=== PATIENT | male | born 1950 | race Caucasian/White ===

== ENCOUNTER 2018-02-18 09:57 | Emergency (ER) | payer MEDICARE, OTHER ==
[~2018-02-18] VITALS: Ht 182.9 cm; Wt 88.9 kg
[~2018-02-18 09:57] MED LIST: ASPI-266 PO; CLN.1TRX PO; CLON0.1T14 PO; FINA1TAB10 PO; FINA5TAB6 PO; HYDR-3714 PO; HYDR-757 PO; LISI1TAB10 PO; LORA10TA76 PO; MELA1TAB27 PO; MULT-517 PO; POLY B OU; SIMV40TA4 PO; TRIMETHOPRIM OU
--- OUTSIDE RECORDS SUMMARY | 2018-02-18 10:05 | XMS REPORT ---
Author Author LORA JUSTIN Organization [employer] Address Unknown Phone Unavailable Care Team Providers Care Medicine Assistant Name Role Phone LORA JUSTIN CP Unavailable Allergies No Known Allergies Problems Problem Type Condition Code Onset Dates Condition Status Assessment Arthritis M19.90 Active Medications Medication Code System Code Instructions Start Date End Date Status Dosage Tramadol HCl [facility] [address]-45 50 MG Orally every 6 hrs. MUST LAST 30 DAYS 1 tablet as needed Results No Known Results Summary Purpose [employer]ClinicalWorks Submission
--- OUTSIDE RECORDS SUMMARY | 2018-02-18 10:05 | XMS REPORT ---
Author Author LORA JUSTIN Organization [facility] Address [address] [place] [address] Care Team Providers Care Sustainability Analyst Name Role Phone LORA JUSTIN Unavailable PROBLEMS Type Condition ICD9-CM Code [id number] Code Onset Dates Condition Status SNOMED Code Problem Other chronic pain G89.29 Active 34102351 ALLERGIES No Known Allergies SOCIAL HISTORY No smoking Hx information available PLAN OF CARE VITAL SIGNS MEDICATIONS Medication Instructions Dosage Frequency Start Date End Date Duration Status Tramadol HCl 50 mg Orally every 4 hrs 1 tablet as needed 4h Active RESULTS No Results PROCEDURES No Known procedures IMMUNIZATIONS No Known Immunizations
--- OUTSIDE RECORDS SUMMARY | 2018-02-18 10:05 | XMS REPORT ---
Author Author LORA JUSTIN Organization [employer] Address Unknown Phone Unavailable Care Team Providers Care Life Insurance Agent Name Role Phone LORA JUSTIN CP Unavailable Allergies No Known Allergies Problems No Known Problems Medications Medication Code System Code Instructions Start Date End Date Status Dosage Tramadol HCl [facility] [address]-60 50 mg Orally every 4 hrs 1 tablet as needed Results No Known Results Summary Purpose [employer]ClinicalWorks Submission
--- OUTSIDE RECORDS SUMMARY | 2018-02-18 10:05 | XMS REPORT ---
Author Author LORA JUSTIN Organization [facility] Address [address] [place] [address] Care Team Providers Care Chain Carrier Name Role Phone LORA JUSTIN Unavailable PROBLEMS Type Condition ICD9-CM Code [id number] Code Onset Dates Condition Status SNOMED Code Problem Other chronic pain G89.29 Active 41193960 ALLERGIES No Known Allergies SOCIAL HISTORY No smoking Hx information available PLAN OF CARE VITAL SIGNS MEDICATIONS Medication Instructions Dosage Frequency Start Date End Date Duration Status Tramadol HCl 50 mg Orally every 4 hrs 1 tablet as needed 4h 28 days Active RESULTS No Results PROCEDURES No Known procedures IMMUNIZATIONS No Known Immunizations
--- OUTSIDE RECORDS SUMMARY | 2018-02-18 10:06 | XMS REPORT ---
Author Author LORA JUSTIN Organization [facility] Address [address] [place] [address] Care Team Providers Care Folding Machine Feeder Name Role Phone LORA JUSTIN Unavailable PROBLEMS Type Condition ICD9-CM Code [id number] Code Onset Dates Condition Status SNOMED Code Problem Other chronic pain G89.29 Active 90273272 ALLERGIES No Information SOCIAL HISTORY Never Assessed PLAN OF CARE VITAL SIGNS MEDICATIONS Medication Instructions Dosage Frequency Start Date End Date Duration Status Tramadol HCl 50 mg Orally every 4 hrs 1 tablet as needed 4h 28 days Active RESULTS No Results PROCEDURES No Known procedures IMMUNIZATIONS No Known Immunizations MEDICAL (GENERAL) HISTORY Type Description Date Medical History hypertension Medical History mild stroke Medical History hyperlipidemia Medical History prostate cancer Surgical History wrist surgery Surgical History hernia repair Hospitalization History surgeries only Hospitalization History headache 11/2014
--- OUTSIDE RECORDS SUMMARY | 2018-02-18 10:06 | XMS REPORT ---
Author Author LORA JUSTIN Organization [facility] Address [address] [place] [address] Care Team Providers Care Precast Molder Name Role Phone LORA JUSTIN Unavailable PROBLEMS Type Condition ICD9-CM Code [id number]-MK Code Onset Dates Condition Status SNOMED Code Problem Other chronic pain G89.29 Active 84048023 ALLERGIES No Information SOCIAL HISTORY Never Assessed [...]
--- OUTSIDE RECORDS SUMMARY | 2018-02-18 10:06 | XMS REPORT ---
Author Author LORA JUSTIN [facility] Address [address] [place] [address] Care Team Providers Care Sticker Operator Name Role Phone LORA JUSTIN Unavailable PROBLEMS Unknown Problems ALLERGIES Unknown Allergies SOCIAL HISTORY No smoking Hx information available PLAN OF CARE VITAL SIGNS MEDICATIONS Medication Instructions Dosage Frequency Start Date End Date Duration Status Tramadol HCl 50 mg Orally every 4 hrs 1 tablet as needed 4h Active RESULTS No Results PROCEDURES No Known procedures IMMUNIZATIONS No Known Immunizations
--- OUTSIDE RECORDS SUMMARY | 2018-02-18 10:06 | XMS REPORT ---
Author LORA Hernandez Organization [employer] Address Unknown Phone Unavailable Care Team Providers Care Japanese Professor Name Role Phone LORA JUSTIN CP Unavailable Allergies, Adverse Reactions, Alerts Substance Reaction Event Type N.K.D.A. Info Not Available Non Drug Allergy Problems Problem Type Condition ICD-9 Code Onset Dates Condition Status Assessment Arthritis 716.90 Active Medications Medication Code System Code Instructions Start Date End Date Status Dosage Proscar [facility] [address]-44 not defined Tramadol HCl [facility] [address]-23 50 MG Orally every 6 hrs 1 tablet as needed Simvastatin [facility] [address]-77 40 mg Once a day 1 tablet in the evening Plavix [facility] [address]-60 75 MG Orally Once a day not defined Procedures Procedure Coding System Code Date Office Visit, Est Pt., Level 3 CPT-4 68330 Jun 28, 2015 Vital Signs Date/Time: Jun 28, 2015 Temperature 96.7 F Weight 199.3 lbs Height 70 in BMI 28.59 Index Blood Pressure Diastolic 80 mmHg Blood Pressure Systolic 130 mmHg Cardiac Monitoring Heart Rate 60 bpm Results No Known Results Summary Purpose eClinicalWorks Submission
--- OUTSIDE RECORDS SUMMARY | 2018-02-18 10:06 | XMS REPORT ---
Author Author LORA JUSTIN Organization [employer] Address Unknown Phone Unavailable Care Team Providers Care Tableman Name Role Phone LORA JUSTIN CP Unavailable Allergies No Known Allergies Problems No Known Problems Medications Medication Code System Code Instructions Start Date End Date Status Dosage Tramadol HCl [facility] [address]-34 50 mg Orally every 4 hrs 1 tablet as needed Results No Known Results Summary Purpose eClinicalWorks Submission
--- OUTSIDE RECORDS SUMMARY | 2018-02-18 10:06 | XMS REPORT ---
Author LORA Hernandez Organization [employer] Address Unknown Phone Unavailable Care Team Providers Care Digital Media Designer Name Role Phone LORA JUSTIN CP Unavailable Allergies No Known Allergies Problems Problem Type Condition Code Onset Dates Condition Status Assessment Arthritis 716.90 Active Medications Medication Code System Code Instructions Start Date End Date Status Dosage Tramadol HCl [facility] [address]-04 50 MG Orally every 6 hrs. MUST LAST 30 DAYS 1 tablet as needed Results No Known Results Summary Purpose eClinicalWorks Submission
--- OUTSIDE RECORDS SUMMARY | 2018-02-18 10:06 | XMS REPORT ---
Author Author LORA JUSTIN Organization [facility] Address [address] [place] [address] Care Team Providers Care Career Discovery Teacher Name Role Phone LORA JUSTIN Unavailable PROBLEMS Type Condition ICD9-CM Code NSH53-ZR Code Onset Dates Condition Status SNOMED Code Problem Other chronic pain G89.29 Active 91495320 ALLERGIES Substance Reaction Event Type Date Status N.K.D.A. Unknown Non Drug Allergy Nov, Unknown SOCIAL HISTORY No smoking Hx information available PLAN OF CARE VITAL SIGNS Height 70 in 2016-11-02 Weight 200.1 lbs 2016-11-02 Temperature 98.2 degrees Fahrenheit 2016-11-02 Heart Rate 70 bpm 2016-11-02 Respiratory Rate 18 2016-11-02 BMI 28.71 kg/m2 2016-11-02 Blood pressure systolic 132 mmHg 2016-11-02 Blood pressure diastolic 42 mmHg 2016-11-02 MEDICATIONS Medication Instructions Dosage Frequency Start Date End Date Duration Status Tramadol HCl 50 mg Orally every 4 hrs 1 tablet as needed 4h Active Plavix 75 MG Orally Once a day 24h Active Simvastatin 40 mg 1 tablet in the evening 24h Active Proscar Active RESULTS No Results PROCEDURES Procedure Date Ordered Related Diagnosis Body Site [facility] VISIT ESTABLISHED PATIENT Nov 02, 2016 Office Visit, Est Pt., Level 3 Nov 02, 2016 IMMUNIZATIONS No Known Immunizations
--- OUTSIDE RECORDS SUMMARY | 2018-02-18 10:06 | XMS REPORT ---
Author LORA Hernandez Organization [employer] Address Unknown Phone Unavailable Care Team Providers Care Senior Software Developer Name Role Phone LORA JUSTIN CP Unavailable Allergies, Adverse Reactions, Alerts Substance Reaction Event Type N.K.D.A. Info Not Available Non Drug Allergy Problems Problem Type Condition Code Onset Dates Condition Status Assessment Arthritis M19.90 Active Medications Medication Code System Code Instructions Start Date End Date Status Dosage Simvastatin [facility] [address]-98 40 mg Once a day 1 tablet in the evening Plavix [facility] [address]-19 75 MG Orally Once a day not defined Proscar [facility] [address]-17 not defined Tramadol HCl [facility] [address]-44 50 MG Orally every 6 hrs. MUST LAST 30 DAYS 1 tablet as needed Procedures Procedure Coding System Code Date Office Visit, Est Pt., Level 3 CPT-4 75518 Oct 02, 2015 Vital Signs Date/Time: Oct 02, 2015 Temperature 98.1 F Weight 206.0 lbs Height 70 in BMI 29.55 Index Blood Pressure Diastolic 60 mmHg Blood Pressure Systolic 120 mmHg Cardiac Monitoring Heart Rate 64 bpm Results No Known Results Summary Purpose eClinicalWorks Submission
--- OUTSIDE RECORDS SUMMARY | 2018-02-18 10:06 | XMS REPORT ---
Author Author LORA JUSTIN Organization [employer] Address Unknown Phone Unavailable Care Team Providers Care Bacteriologist Food Name Role Phone LORA JUSTIN CP Unavailable Allergies No Known Allergies Problems Problem Type Condition Code Onset Dates Condition Status Assessment Arthritis 716.90 Active Medications Medication Code System Code Instructions Start Date End Date Status Dosage Tramadol HCl [facility] [address]-22 50 MG Orally every 6 hrs 1 tablet as needed Results No Known Results Summary Purpose eClinicalWorks Submission
--- OUTSIDE RECORDS SUMMARY | 2018-02-18 10:06 | XMS REPORT ---
Author Author LORA JUSTIN Organization [facility] Address [address] [place] [address] Care Team Providers Care Slubber Operator Name Role Phone LORA JUSTIN Unavailable PROBLEMS Type Condition ICD9-CM Code [id number] Code Onset Dates Condition Status SNOMED Code Problem Other chronic pain G89.29 Active 81101086 ALLERGIES No Information SOCIAL HISTORY Never Assessed PLAN OF CARE VITAL SIGNS MEDICATIONS Medication Instructions Dosage Frequency Start Date End Date Duration Status Tramadol HCl 50 MG Orally every 4 hrs 1 tablet as [...]
--- OUTSIDE RECORDS SUMMARY | 2018-02-18 10:06 | XMS REPORT ---
Author Author LORA JUSTIN Organization [facility] Address [address] [place] [address] Care Team Providers Care Mash Preparatory Operator Name Role Phone NHAN LORA Unavailable PROBLEMS Type Condition ICD9-CM Code CRE82-MK Code Onset Dates Condition Status SNOMED Code Problem Other chronic pain G89.29 Active 54518227 ALLERGIES No Information ENCOUNTERS Encounter Location Date Diagnosis [facility] [id number] [place] [phone] Jan, [facility] [id number] [place] [address] Dec, Other chronic pain G89.29 [facility] [id number] [place] [address] Nov, Other chronic pain G89.29 [facility] [id number] [place] [address] Oct, Other chronic pain G89.29 [facility] [id number] [place] [address] Sep, Other chronic pain G89.29 [facility] [id number] [place] [address] 47[address] Aug, Other chronic pain G89.29 [facility] [id number] [place] [address] Jul, Other chronic pain G89.29 [facility] [id number] [place] [address] 6[address] Jul, Other chronic pain G89.29 [facility] [id number] [place] [address] Jun, Other chronic pain G89.29 [facility] [address] [id number] [place] [address] May, [facility] [address] [facility] [id number] [place] [address] Apr, [facility] [address] [facility] [id number] [place] [address] Apr, [facility] [id number] [place] [address], [place] [address] March, [facility] [address] [id number] [place] [address] Jan, [facility] [address] [facility] [id number] [place] [address], [place] [address] Dec, [facility] [id number] [place] [address] Dec, [facility] [id number] [place] [address], [place] [address] Nov, [facility] [id number] [place] [address] Nov, Other chronic pain G89.29 and Pain in right wrist M25.531 [facility] [id number] [place] [address] Oct, [facility] [id number] [place] [address] Sep, [facility] [address] [facility] [id number] [place] [address] 12 Aug, 2016 [facility] [id number] [place] [address] 13 Jul, 2016 [facility] [address] [facility] [id number] [place] [address] 15 Jun, 2016 [facility] [id number] [place] [address] May, [facility] [id number] [place] [address] Apr, [facility] [id number] [place] [address] March, [facility] [id number] [place] [address] March, Wrist pain, right M25.531 and Prostate cancer C61 [facility] [id number] [place] [address] Jan, [facility] [id number] [place] [address] Dec, [facility] [id number] [place] [address] Dec, [facility] [id number] [place] [address] Dec, [facility] [id number] [place] [address] Dec, Arthritis M19.90 [facility] [id number] [place] [address] Nov, Arthritis M19.90 [facility] [id number] [place] [address] Oct, Arthritis M19.90 [facility] [id number] [place] [address] Sep, [facility] [id number] [address] Sep, Arthritis 716.90 [facility] [id number] [place] [address] Jul, Arthritis 716.90 [facility] [id number] [place] [address] 2546 Jun, Arthritis 716.90 [facility] [address] [place] [address] Jun, Wrist pain 719.43 [facility] [id number] [address] May, Wrist pain 719.43 [facility] [id number] [address] Apr, [address] [place] [address] Apr, Wrist pain 719.43 and Headaches, 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 [facility] [id number] [address] March, Wrist pain, right 719.43 IMMUNIZATIONS No Known Immunizations SOCIAL HISTORY Never Assessed REASON FOR VISIT Controlled Med Refill 05/03 PLAN OF CARE VITAL SIGNS MEDICATIONS Medication Instructions Dosage Frequency Start Date End Date Duration Status Tramadol HCl 50 MG Orally every 4 hrs 1 tablet as needed 4h 28 days Active RESULTS No Results PROCEDURES No Known procedures INSTRUCTIONS MEDICATIONS ADMINISTERED No Known Medications MEDICAL (GENERAL) HISTORY Type Description Date Medical History hypertension Medical History mild stroke Medical History hyperlipidemia Medical History prostate cancer Surgical History wrist surgery Surgical History hernia repair Hospitalization History surgeries only Hospitalization History headache 11/2014
--- OUTSIDE RECORDS SUMMARY | 2018-02-18 10:06 | XMS REPORT ---
Author Author LORA JUSTIN Organization [facility] Address [address] [place] [address] Care Team Providers Care Bridge Opener Name Role Phone LORA JUSTIN Unavailable PROBLEMS Type Condition ICD9-CM Code QCN21-PY Code Onset Dates Condition Status SNOMED Code Problem Other chronic pain G89.29 Active 61072806 ALLERGIES No Information SOCIAL HISTORY Never Assessed [...]
--- OUTSIDE RECORDS SUMMARY | 2018-02-18 10:06 | XMS REPORT ---
Author Author LORA JUSTIN Organization [employer] Address Unknown Phone Unavailable Care Team Providers Care Chassis Driver Name Role Phone LORA JUSTIN CP Unavailable Allergies No Known Allergies Problems No Known Problems Medications Medication Code System Code Instructions Start Date End Date Status Dosage Tramadol HCl [facility] [address]-92 50 mg Orally every 4 hrs 1 tablet as needed Results No Known Results Summary Purpose eClinicalWorks Submission
--- OUTSIDE RECORDS SUMMARY | 2018-02-18 10:07 | XMS REPORT ---
Author Author LORA JUSTIN Organization [employer] Address Unknown Phone Unavailable Care Team Providers Care Assistant Site Manager Name Role Phone LORA JUSTIN CP Unavailable Allergies No Known Allergies Problems No Known Problems Medications No Known Medications Results No Known Results Summary Purpose [employer]Clinical[employer] Submission
--- OUTSIDE RECORDS SUMMARY | 2018-02-18 10:07 | XMS REPORT ---
Author Author LORA JUSTIN Organization [employer] Address Unknown Phone Unavailable Care Team Providers Care Bulk Tank Car Unloader Name Role Phone LORA JUSTIN CP Unavailable Allergies No Known Allergies Problems Problem Type Condition ICD-9 Code Onset Dates Condition Status Assessment Wrist pain 719.43 Active Medications Medication Code System Code Instructions Start Date End Date Status Dosage Tramadol HCl [facility] [address]-83 50 MG Orally every12 hrs 1 tablet as needed Results No Known Results Summary Purpose [employer]ClinicalWorks Submission
--- OUTSIDE RECORDS SUMMARY | 2018-02-18 10:07 | XMS REPORT ---
Author Author LORA JUSTIN Organization [facility] Address [address] [place] [address] Care Team Providers Care Electrical Sign Wirer Helper Name Role Phone NHAN LORA Unavailable PROBLEMS Type Condition ICD9-CM Code QRM38-PA Code Onset Dates Condition Status SNOMED Code Problem Other chronic pain G89.29 Active [id number] ALLERGIES No Information ENCOUNTERS Encounter Location Date Diagnosis [facility] [id number] [place] [address] March, [facility] [id number] [place] [address] 85821- 9739 Dec, Other chronic pain G89.29 [facility] [id number] [place] [address] 26269- 8320 Dec, Other chronic pain G89.29 [facility] [id number] [place] [address] 66706- 0064 Nov, Other chronic pain G89.29 [facility] [id number] [place] [address] 59845- 1859 Oct, Other chronic pain G89.29 [facility] [id number] [place] [address] 07220- 6374 Sep, Other chronic pain G89.29 [facility] [id number] [place] [address] 55673- 5211 Aug, Other chronic pain G89.29 [facility] [id number] [place] [address] 66615- 9854 Jul, Other chronic pain G89.29 [facility] [id number] [place] [address] 82374- 3056 Jul, Other chronic pain G89.29 [facility] [address] [facility] [id number] [place] [address] Jun, Other chronic pain G89.29 [facility] [id number] [place] [address], [place] [address] May, [facility] [address] [facility] [id number] [place] [address] Apr, [facility] [address] [facility] [id number] [place] [address], [place] [address] 6[address] Apr, [facility] [address] [facility] [id number] [place] [address], [place] [address] March, [facility] [address] [facility] [id number] [place] [address], [place] [address] Jan, [facility] [id number] [place] [address], [place] [address]- [address] Dec, [facility] [id number] [place] [address], [place] [address] Dec, [facility] [id number] [place] [address], [place] [address] Nov, [facility] [id number] [place] [address] Nov, Other chronic pain G89.29 and Pain in right wrist M25.531 [facility] [address] [address] Oct, [facility] [address] [facility] [id number] [address] 11 Sep, 2016 [facility] [id number] [place] [address] 12 Aug, 2016 [facility] [address] [facility] [id number] [place] [address] 9[address] 13 Jul, 2016 [facility] [address] [address] Jun, [facility] [address] [facility] [id number] [place] [address] May, [facility] [id number] [address] Apr, [facility] [address] [facility] [id number] [place] [address] 38[address] March, [facility] [address] [address] March, Wrist pain, right M25.531 and Prostate cancer C61 [facility] [address] [facility] [id number] [place] [address] 8[address] Jan, [facility] [id number] [place] [address] Dec, [facility] [id number] [address] 9[address] Dec, [facility] [id number] [address] Dec, [facility] [id number] [place] [address] Dec, Arthritis M19.90 [facility] [address] [address] Nov, Arthritis M19.90 [facility] [address] [address] Oct, Arthritis M19.90 [facility] [id number] [address] Sep, [facility] [id number] [address] Sep, Arthritis 716.90 [facility] [id number] [address] Jul, Arthritis 716.90 [facility] [id number] [address] Jun, Arthritis 716.90 [facility] [address] [address] Jun, Wrist pain 719.43 [address] [address] May, Wrist pain 719.43 [address] [id number] [place] [address] 30983- 3759 Apr, [address] [id number] [place] [address] 47149- 7550 Apr, Wrist pain 719.43 and Headaches, 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
--- OUTSIDE RECORDS SUMMARY | 2018-02-18 10:07 | XMS REPORT ---
Author Author LORA JUSTIN Organization [employer] Address Unknown Phone Unavailable Care Team Providers Care Returns Supervisor Name Role Phone LORA JUSTIN CP Unavailable Allergies No Known Allergies Problems No Known Problems Medications Medication Code System Code Instructions Start Date End Date Status Dosage Tramadol HCl [facility] [address]-17 50 mg Orally every 6 hrs 1 tablet as needed Results No Known Results Summary Purpose [employer] Submission
--- OUTSIDE RECORDS SUMMARY | 2018-02-18 10:07 | XMS REPORT | Continuity of Care Document ---
Author Author [facility] Organization [facility] Address Unknown Phone Unavailable Allergies Active Description Code Type Severity Reaction Onset Reported/Identified Relationship to Patient Clinical Status Yes No Known Drug Allergies [id number] Drug Allergy Unknown N/A 11/23/2014 Medications There is no data. Problems Date Dx Coded Attending Type Code Diagnosis Diagnosed By 02/16/2014 PAUL LUONG MD Ot 716.13 02/16/2014 PAUL LUONG MD Ot V57.21 11/23/2014 JITENDRA RUBIO APRN Ot 346.90 11/23/2014 JITENDRA RUBIO APRN Ot 401.9 11/23/2014 JITENDRA RUBIO APRN Ot 784.0 11/26/2014 RENO ELDER MD Ot 369.60 11/26/2014 RENO ELDER MD Ot 401.9 11/26/2014 RENO ELDER MD Ot 434.91 11/26/2014 RNEO ELDER MD Ot 369.60 11/26/2014 RENO ELDER MD Ot 401.9 11/26/2014 RENO ELDER MD Ot 434.91 01/21/2016 ANDRÉS JAIN MD Ot C61 02/05/2016 ANDRÉS JAIN MD Ot C61 03/23/2016 ANDRÉS JAIN MD Ot C61 MALIGNANT NEOPLASM OF PROSTATE 03/25/2016 ANDRÉS JAIN MD Ot C61 MALIGNANT NEOPLASM OF PROSTATE 05/01/2016 ANDRÉS JAIN MD Ot C61 MALIGNANT NEOPLASM OF PROSTATE 05/01/2016 ANDRÉS JAIN MD Ot Z51.0 ENCOUNTER FOR ANTINEOPLASTIC RADIATION T 05/08/2016 ANDRÉS JAIN MD Ot C61 MALIGNANT NEOPLASM OF PROSTATE 05/08/2016 ANDRÉS JAIN MD Ot Z51.0 ENCOUNTER FOR ANTINEOPLASTIC RADIATION T 05/21/2016 ANDRÉS JAIN MD Ot C61 MALIGNANT NEOPLASM OF PROSTATE 05/21/2016 ANDRÉS JAIN MD Ot Z51.0 ENCOUNTER FOR ANTINEOPLASTIC RADIATION T 06/22/2016 ANDRÉS JAIN MD Ot C61 MALIGNANT NEOPLASM OF PROSTATE 06/22/2016 ANDRÉS JAIN MD Ot Z51.0 ENCOUNTER FOR ANTINEOPLASTIC RADIATION T 06/23/2016 ANDRÉS JAIN MD Ot C61 MALIGNANT NEOPLASM OF PROSTATE 06/23/2016 ANDRÉS JAIN MD Ot Z51.0 ENCOUNTER FOR ANTINEOPLASTIC RADIATION T Procedures There is no data. Results There is no data. Encounters ACCT No. Visit Date/Time Discharge Status Pt. Type Provider Facility Loc./Unit Complaint [id number] 06/23/2016 00:10:00 06/23/2016 23:59:59 CLS Preadmit ANDRÉS JAIN MD [facility] ONC [id number] 04/14/2016 13:46:00 06/22/2016 00:01:00 DIS Outpatient ANDRÉS JAIN MD [facility] ONC [id number] 03/23/2016 13:46:00 03/23/2016 00:01:00 DIS Outpatient ANDRÉS JAIN MD [facility] ONC [id number] 11/26/2014 00:40:00 11/26/2014 12:14:00 DIS Inpatient RENO ELDER MD [facility] 4TH [id number] 11/23/2014 09:34:00 11/23/2014 12:20:00 DIS Emergency JITENDRA RUBIO APRN [facility] ER [id number] 02/07/2014 12:48:00 02/16/2014 13:25:00 DIS Outpatient PAUL LUONG MD [facility] REHAB
[2018-02-18 10:45] VITALS: BP 171/119
[2018-02-18] MEDS ORDERED: AMOX500C2 PO (10:46)
--- NOTE | 2018-02-18 10:47 | ED EENT ---
History of Present Illness General Chief Complaint: Dental Problems/Pain Stated Complaint: DENTAL/RIGHT ARM PAIN Nursing Triage Note: TO ROOM PATIENT HAS TOOTH ACHE AND WANTS TOOTH PULLED. WHEN ASKED HIM ABOUT HIS PMH HE SIT'S ON BED AND STARTS LAUGHING. REPORTS HAS BEEN DRINKING. Source: patient Exam Limitations: no limitations History of Present Illness Date Seen by Provider: Feb 18, 2018 Time Seen by Provider: 10:44 Initial Comments To ER with reports of a toothache and he wants his tooth pulled. He's had alcohol today. Timing/Duration: gradual Severity: moderate Location: dental Allergies and Home Medications Allergies Coded Allergies: No Known Drug Allergies (Unverified , 11/23/14) Home Medications Amoxicillin 500 Mg Capsule, 500 MG PO TID Prescribed by: JITENDRA RUBIO on 02/18/18 1046 Aspirin 81 Mg Tablet.dr, 81 MG PO DAILY, (Reported) Clonidine HCl 0.1 Mg Tablet, 0.1 MG PO DAILY PRN for BLOOD PRESSURE > 145, ( Reported) Finasteride 5 Mg Tablet, 5 MG PO DAILY, (Reported) Hctz/Lisinopril 1 Tab Tablet, 1 TAB PO DAILY, (Reported) Hydrocodone Bit/Acetaminophen 1 Each Tablet, 1 TAB PO Q6H PRN for HEADACHE, ( Reported) Loratadine 10 Mg Tablet, 10 MG PO DAILY PRN for ALLERGIES, (Reported) Melatonin/Pyridoxine HCl (B6) 1 Each Tablet, 300-600 MCG PO HS PRN for INSOMNIA, (Reported) TAKES 1-2 TABLETS Multivitamins 1 Tab Tablet, 1 TAB PO HS, (Reported) Simvastatin 40 Mg Tablet, 20 MG PO DAILY, (Reported) TAKES 1/2 (40MG) TABLET [Trimethoprim/Poly B] , 1 DROPS OU DAILY PRN for DRY/ITCHY EYES, (Reported) Patient Home Medication List Home Medication List Reviewed: Yes Review of Systems Constitutional: see HPI Eyes: No Symptoms Reported Ears: No Symptoms Reported Nose: no symptoms reported Mouth: see HPI Throat: no symptoms reported Respiratory: no symptoms reported Cardiovascular: no symptoms reported Musculoskeletal: no symptoms reported Past Xfzppoc-Lsnsgg-Xtpbhz Hx Patient Social History Alcohol Use: Occasionally Uses Recreational Drug Use: No Recent Foreign Travel: No Contact w/Someone Who Travel: No Recent Infectious Disease Expo: No Past Medical History Surgeries: Yes (HERNIA REPAIR) Orthopedic Respiratory: No Cardiac: Yes Hypertension Neurological: Yes TIA Reproductive Disorders: No Sexually Transmitted Disease: No HIV/AIDS: No Benign Prostatic Hyperpl Gastrointestinal: No Musculoskeletal: Yes Arthritis Endocrine: No Loss of Vision: Left Hearing Impairment: Denies Cancer: No Psychosocial: No Integumentary: No Blood Disorders: No Family Medical History Hypertension 19 FATHER Physical Exam Vital Signs Vital Signs - First Documented 02/18/18 10:04 Temp 96.1 Pulse 98 B/P (MAP) 171/119 (136) Pulse Ox 98 General Appearance: WD/WN, no apparent distress Eyes: bilateral eye normal inspection, bilateral eye PERRL Ears: bilateral ear auricle normal, bilateral ear canal normal Mouth/Throat: other Neck: non-tender, full range of motion Cardiovascular: regular rate, rhythm, no murmur Respiratory: no respiratory distress, no accessory muscle use Gastrointestinal: normal bowel sounds, non tender, soft Neurologic/Psychiatric: alert, normal mood/affect, oriented x 3 Skin: normal color, warm/dry Progress/Results/Core Measures Vital Signs/I&O 02/18/18 10:04 Temp 96.1 Pulse 98 B/P (MAP) 171/119 (136) Pulse Ox 98 Blood Pressure Mean: 136 Departure Impression Primary Impression: Pain, dental Disposition: 01 HOME, SELF-CARE Condition: Stable Departure-Patient Inst. Decision time for Depature: 10:46 Referrals: CLARA CANO MD (PCP/Family) Primary Care Physician Patient Instructions: Dental Pain (DC) Add. Discharge Instructions: 1. Antibiotic as directed 2. Call your dentist as soon as possible to be seen All discharge instructions reviewed with patient and/or family. Voiced understanding. Scripts Amoxicillin (Amoxicillin) 500 Mg Capsule 500 MG PO TID, #21 CAP Prov: JITENDRA RUBIO PETROLEUM REFINING EQUIPMENT OPERATOR 02/18/18 Images Mouth/Nose 1 - Tenderness JITENDRA RUBIO APRN Feb 18, 2018 10:47
[2018-02-18] MEDS ORDERED: BUPIVACAINE 0.5% 30 ML (SENSORCAINE) VIAL ONE (21:02)
[2018-02-18] MEDS ORDERED: LIDOCAINE/EPI 2% 1:100,00 (XYLOCAINE) 20 ML VIAL ONE (21:02)
== END 2018-02-18 10:25 | disposition home or self-care (01) ==
LOC: EDUNIT# 09:57 → ER 10:02
DX: K08.89 Other specified disorders of teeth and supporting structures (principal); I10 Essential (primary) hypertension; Z86.73 Personal history of transient ischemic attack (TIA), and cerebral infarction without residual deficits; Z79.82 Long term (current) use of aspirin; Z87.19 Personal history of other diseases of the digestive system
CPT/HCPCS: 99282

== ENCOUNTER 2018-02-18 20:57 | Emergency (ER) | payer MEDICARE, OTHER ==
[~2018-02-18] VITALS: Ht 182.9 cm; Wt 77.1 kg
[~2018-02-18 20:57] MED LIST changes: +AMOX500C2 PO
[2018-02-18] MEDS ORDERED: LIDOCAINE/EPI 2% 1:100,00 (XYLOCAINE) 20 ML VIAL INJ ONE (21:00)
--- OUTSIDE RECORDS SUMMARY | 2018-02-18 21:05 | XMS REPORT | Continuity of Care Document ---
Author Author [facility] Organization [facility] Address Unknown Phone Unavailable Allergies Active Description Code Type Severity Reaction Onset Reported/Identified Relationship to Patient Clinical Status Yes No Known Drug Allergies [id number] Drug Allergy Unknown N/A 11/23/2014 Medications There [...] 11/26/2014 RENO ELDER MD Ot 434.91 11/26/2014 RENO ELDER MD Ot 369.60 11/26/2014 [...] Status Pt. Type Provider Facility Loc./Unit Complaint [id number] 06/23/2016 00:10:00 06/23/2016 23:59:59 CLS Preadmit ANDRÉS JAIN MD [facility] ONC [id number] 04/14/2016 13:46:00 06/22/2016 00:01:00 DIS Outpatient ANDRÉS JAIN MD [facility] ONC [id number] 03/23/2016 13:46:00 03/23/2016 00:01:00 DIS Outpatient ANDRÉS JAIN MD [facility] ONC [id number] 11/26/2014 00:40:00 11/26/2014 12:14:00 DIS Inpatient JERROD MARTIN, RENO Renner [facility] 4TH [id number] 11/23/2014 09:34:00 11/23/2014 12:20:00 DIS Emergency JITENDRA RUBIO ITALIAN LECTURER [facility] ER [id number] 02/07/2014 12:48:00 02/16/2014 13:25:00 DIS Outpatient CHERISE MARTIN, PAUL Saldaña [facility] REHAB [id number] 02/18/2018 20:59:00 ACT Emergency JITENDRA RUBIO ITALIAN LECTURER [facility] ER JAW PAIN [id number] 02/18/2018 10:02:00 ACT Emergency JITENDRA RUBIO ITALIAN LECTURER [facility] ER DENTAL/RIGHT ARM PAIN
--- NOTE | 2018-02-18 21:10 | ED EENT ---
History of Present Illness General Stated Complaint: JAW PAIN Source: patient Exam Limitations: no limitations History of Present Illness Date Seen by Provider: Feb 18, 2018 Time Seen by Provider: 21:06 Initial Comments To ER with reports of right lower jaw pain. He states that he has a bad tooth and was just here the other day to have this evaluated. He states he needs the tooth pulled and he was intoxicated at that time. I helped remind him that it was not a few days ago he was here, but 9 hours ago that he was here and I saw him for the same thing. He had been drinking so opiates were not prescribed for pain control. Same story aurora, hes been drinking again the day today. When I remind him that he was just here this morning he states "was I really just here this morning? Goddammit..." Timing/Duration: other (2-3 days) Severity: moderate Location: mouth Allergies and Home Medications Allergies Coded Allergies: No Known Drug Allergies (Unverified , 11/23/14) Home Medications Amoxicillin 500 Mg Capsule, 500 MG PO TID Prescribed by: JITENDRA RUBIO on 02/18/18 1046 Aspirin 81 Mg Tablet.dr, 81 MG PO DAILY, (Reported) Clonidine HCl 0.1 Mg Tablet, 0.1 MG PO DAILY PRN for BLOOD PRESSURE > 145, ( Reported) Finasteride 5 Mg Tablet, 5 MG PO DAILY, (Reported) Hctz/Lisinopril 1 Tab Tablet, 1 TAB PO DAILY, (Reported) Hydrocodone Bit/Acetaminophen 1 Each Tablet, 1 TAB PO Q6H PRN for HEADACHE, ( Reported) Loratadine 10 Mg Tablet, 10 MG PO DAILY PRN for ALLERGIES, (Reported) Melatonin/Pyridoxine HCl (B6) 1 Each Tablet, 300-600 MCG PO HS PRN for INSOMNIA, (Reported) TAKES 1-2 TABLETS Multivitamins 1 Tab Tablet, 1 TAB PO HS, (Reported) Simvastatin 40 Mg Tablet, 20 MG PO DAILY, (Reported) TAKES 1/2 (40MG) TABLET [Trimethoprim/Poly B] , 1 DROPS OU DAILY PRN for DRY/ITCHY EYES, (Reported) Patient Home Medication List Home Medication List Reviewed: Yes Review of Systems Constitutional: see HPI Eyes: No Symptoms Reported Ears: No Symptoms Reported Nose: no symptoms reported Mouth: no symptoms reported Throat: no symptoms reported Respiratory: no symptoms reported Cardiovascular: no symptoms reported Musculoskeletal: no symptoms reported Past Arckzrw-Dmvyfw-Slesbj Hx Patient Social History Recent Foreign Travel: No Contact w/Someone Who Travel: No Past Medical History Surgeries: Yes (HERNIA REPAIR) Orthopedic Respiratory: No Cardiac: Yes Hypertension Neurological: Yes TIA Reproductive Disorders: No Sexually Transmitted Disease: No HIV/AIDS: No Benign Prostatic Hyperpl Gastrointestinal: No Musculoskeletal: Yes Arthritis Endocrine: No Loss of Vision: Left Hearing Impairment: Denies Cancer: No Psychosocial: No Integumentary: No Blood Disorders: No Family Medical History Hypertension 19 FATHER Physical Exam Vital Signs Vital Signs - First Documented 02/18/18 21:02 Temp 95.1 Pulse 95 Resp 20 B/P (MAP) 161/108 (125) Pulse Ox 99 O2 Delivery Room Air General Appearance: WD/WN, no apparent distress, other (He is very jovial, talks nonstop and has an alcohol-like odor on his breath.) Eyes: bilateral eye normal inspection, bilateral eye PERRL, bilateral eye EOMI Ears: bilateral ear auricle normal, bilateral ear canal normal, bilateral ear TM normal Mouth/Throat: normal mouth inspection, pharynx normal, other (Right lower molar is carious and tender to palpation but there is no fluctuant abscess. ) Neck: non-tender, full range of motion; No lymphadenopathy (R), No lymphadenopathy (L) Respiratory: normal breath sounds, no respiratory distress, no accessory muscle use Gastrointestinal: normal bowel sounds, non tender, soft Neurologic/Psychiatric: alert, normal mood/affect, oriented x 3 Skin: normal color, warm/dry Progress/Results/Core Measures My Orders Orders - JITENDRA RUBIO APRN Lidocaine/Epi 2% 1:100,000 (Xylocaine/Ep (02/18/18 21:00) Bupivacaine 0.5% Injection (Sensorcaine (02/18/18 21:15) Medications Given in ED Current Medications Medications Dose Ordered Sig/Colton Route Start Time Stop Time Status Last Admin Dose Admin Bupivacaine HCl 1 ml ONCE ONCE INJ 02/18/18 21:15 02/18/18 21:16 DC 02/18/18 21:06 1 ML Lidocaine/ Epinephrine 2 ml ONCE ONCE INJ 02/18/18 21:00 02/18/18 21:01 DC 02/18/18 21:06 2 ML Vital Signs/I&O 02/18/18 21:02 Temp 95.1 Pulse 95 Resp 20 B/P (MAP) 161/108 (125) Pulse Ox 99 O2 Delivery Room Air Progress Note : Progress Note Right inferior alveolar nerve block done with 1 mL of 2% lidocaine with epinephrine and 1 ml of 0.5% bupivacaine. Departure Impression Primary Impression: Pain, dental Disposition: HOME, SELF-CARE Condition: Stable Departure-Patient Inst. Decision time for Depature: 21:09 Referrals: CLARA CANO MD (PCP/Family) Primary Care Physician Patient Instructions: Dental Pain Add. Discharge Instructions: 1. Use Tylenol and Motrin for pain control. Opiates, stronger pain killers, should not be mixed with the alcohol that you've been drinking. Continue the antibiotics. JITENDRA RUBIO AGRICULTURAL CHEMICALS INSPECTOR Feb 18, 2018 21:10
[2018-02-18] MEDS ORDERED: BUPIVACAINE 0.5% 30 ML (SENSORCAINE) VIAL INJ ONE (21:15)
[2018-02-18 21:18] VITALS: BP 0/0
== END 2018-02-18 21:18 | disposition home or self-care (01) ==
LOC: EDUNIT# 20:57 → ER 20:59
DX: K08.89 Other specified disorders of teeth and supporting structures (principal); I10 Essential (primary) hypertension; Z86.73 Personal history of transient ischemic attack (TIA), and cerebral infarction without residual deficits; Z79.82 Long term (current) use of aspirin; Z87.19 Personal history of other diseases of the digestive system
CPT/HCPCS: 99284

== ENCOUNTER 2018-02-19 03:09 | Emergency (ER) | payer MEDICARE, OTHER ==
[~2018-02-19] VITALS: Ht 182.9 cm; Wt 86.2 kg
--- OUTSIDE RECORDS SUMMARY | 2018-02-19 03:15 | XMS REPORT | Continuity of Care Document ---
Author Author [facility] Organization [facility] Address Unknown Phone Unavailable Allergies Active Description Code Type Severity Reaction Onset Reported/Identified Relationship to Patient Clinical Status Yes No Known Drug Allergies [id number] Drug Allergy Unknown N/A 11/23/2014 Medications There [...] 02/05/2016 ANDRÉS JAIN MD Ot C61 03/23/2016 NADRÉS JAIN MD Ot C61 MALIGNANT NEOPLASM OF [...] Status Pt. Type Provider Facility Loc./Unit Complaint [id number] 02/18/2018 20:59:00 02/18/2018 21:18:00 DIS Emergency JITENDRA RUBIO PRESENTATION SPECIALIST [facility] ER JAW PAIN [id number] 06/23/2016 00:10:00 06/23/2016 23:59:59 CLS Preadmit ANDRÉS JAIN MD [facility] ONC [id number] 04/14/2016 13:46:00 06/22/2016 00:01:00 DIS Outpatient ANDRÉS JAIN MD [facility] ONC [id number] 03/23/2016 13:46:00 03/23/2016 00:01:00 DIS Outpatient ANDRÉS JAIN MD [facility] ONC [id number] 11/26/2014 00:40:00 11/26/2014 12:14:00 DIS Inpatient RENO ELDER MD [facility] 4TH [id number] 11/23/2014 09:34:00 11/23/2014 12:20:00 DIS Emergency JITENDRA RUBIO PRESENTATION SPECIALIST [facility] ER [id number] 02/07/2014 12:48:00 02/16/2014 13:25:00 DIS Outpatient CHERISE MARTIN, PAUL Saldaña [facility] REHAB [id number] 02/19/2018 03:10:00 ACT Emergency FARRAH CARBALLO MD [facility] ER DENTAL PAIN [id number] 02/18/2018 10:02:00 ACT Emergency JITENDRA RUBIO PRESENTATION SPECIALIST [facility] ER DENTAL/RIGHT ARM PAIN
[2018-02-19] MEDS ORDERED: LIDOCAINE 2% 20 ML (XYLOCAINE) VIAL INJ ONE (03:30)
[2018-02-19] MEDS ORDERED: BUPIVACAINE 0.5% 30 ML (SENSORCAINE) VIAL INJ ONE (03:30)
[2018-02-19] MEDS ORDERED: KETOROLAC 30 MG/ML VIAL IM ONE (03:30)
--- NOTE | 2018-02-19 03:45 | ED EENT ---
History of Present Illness General Chief Complaint: Dental Problems/Pain Stated Complaint: DENTAL PAIN Nursing Triage Note: PT AGAIN TO THIS ED W/ C/O DENTAL PAIN REQUESTING TO HAVE HIS TOOTH PULLED. PT STATED "MY FRIEND AND I COULD GO TO [facility] ET GET PLIERS AND PULL IT." REPORTS HE'S "NUMBING THE PAIN W/ BEER." Source: patient Exam Limitations: no limitations History of Present Illness Date Seen by Provider: Feb 19, 2018 Time Seen by Provider: 03:10 Initial Comments This 67 year old man presents to the ER with complaint of right lower dental pain. This is his third visit in less than 24 hours. He received an inferior alveolar injection during his last visit. He has been drinking heavily to treat the pain. He has not been taking any pain medication of any kind. He was informed on his last visit that we will not extracted tooth in the emergency room. He was also previously advised we will not prescribe prescription strength analgesics while he is drinking alcohol heavily. He is afebrile. He states the tooth is loose and he just wants to get it extracted. He was prescribed amoxicillin which she supposedly has been taking. Allergies and Home Medications Allergies Coded Allergies: No Known Drug Allergies (Unverified , 11/23/14) Home Medications Amoxicillin 500 Mg Capsule, 500 MG PO TID Prescribed by: JITENDRA RUBIO on 02/18/18 1046 Aspirin 81 Mg Tablet.dr, 81 MG PO DAILY, (Reported) Clonidine HCl 0.1 Mg Tablet, 0.1 MG PO DAILY PRN for BLOOD PRESSURE > 145, ( Reported) Finasteride 5 Mg Tablet, 5 MG PO DAILY, (Reported) Hctz/Lisinopril 1 Tab Tablet, 1 TAB PO DAILY, (Reported) Hydrocodone Bit/Acetaminophen 1 Each Tablet, 1 TAB PO Q6H PRN for HEADACHE, ( Reported) Loratadine 10 Mg Tablet, 10 MG PO DAILY PRN for ALLERGIES, (Reported) Melatonin/Pyridoxine HCl (B6) 1 Each Tablet, 300-600 MCG PO HS PRN for INSOMNIA, (Reported) TAKES 1-2 TABLETS Multivitamins 1 Tab Tablet, 1 TAB PO HS, (Reported) Simvastatin 40 Mg Tablet, 20 MG PO DAILY, (Reported) TAKES 1/2 (40MG) TABLET [Trimethoprim/Poly B] , 1 DROPS OU DAILY PRN for DRY/ITCHY EYES, (Reported) Patient Home Medication List Home Medication List Reviewed: Yes Review of Systems Constitutional: see HPI Eyes: No Symptoms Reported Ears: No Symptoms Reported Nose: no symptoms reported Mouth: see HPI Throat: no symptoms reported Respiratory: no symptoms reported Cardiovascular: no symptoms reported Gastrointestinal: no symptoms reported Musculoskeletal: no symptoms reported Skin: no symptoms reported Neurological: No Symptoms Reported Hematologic/Lymphatic: No Symptoms Reported Past Ranyozr-Wyktch-Jupzxl Hx Patient Social History Alcohol Use: Regular Use Number of Drinks Today: BB Alcohol Beverage of Choice: Beer, [place] Recreational Drug Use: No Smoking Status: Never a Smoker Recent Foreign Travel: No Contact w/Someone Who Travel: No Recent Infectious Disease Expo: No Recent Hopitalizations: No Physical Abuse: No Sexual Abuse: No Mistreated: No Fear: No Past Medical History Surgeries: Yes (HERNIA REPAIR) Orthopedic Respiratory: No Cardiac: Yes Hypertension Neurological: Yes TIA Reproductive Disorders: No Sexually Transmitted Disease: No HIV/AIDS: No Benign Prostatic Hyperpl Gastrointestinal: No Musculoskeletal: Yes Arthritis Endocrine: No Loss of Vision: Left Hearing Impairment: Denies Cancer: No Psychosocial: No Nursing Suicide Risk Score: 0 Integumentary: No Blood Disorders: No Family Medical History Hypertension 19 FATHER Physical Exam Vital Signs Vital Signs - First Documented 02/19/18 03:12 Temp 94.9 Pulse 91 Resp 18 B/P (MAP) 148/102 (117) Pulse Ox 99 O2 Delivery Room Air General Appearance: WD/WN, no apparent distress, other (intoxicated) Nose: normal inspection Mouth/Throat: pharynx normal, other (slightly loose posterior right lower molar with localized inflammation and swelling of the gingiva without overt abscess) Neck: normal inspection Cardiovascular: regular rate, rhythm, no edema, no murmur Respiratory: lungs clear, normal breath sounds, no respiratory distress Neurologic/Psychiatric: rug sizer II-XII nml as tested, no motor/sensory deficits, alert, normal mood/affect, other (under the influence of alcohol) Skin: normal color, warm/dry Procedures/Interventions Progress Patient received a right-sided inferior alveolar nerve block with 1.5 mL 2 percent lidocaine and 1.5 mL 0.5 percent Marcaine. Progress/Results/Core Measures My Orders Orders - FARRAH CARBALLO MD Lidocaine 2% Injection 20 Ml (Xylocaine (02/19/18 03:30) Bupivacaine 0.5% Injection (Sensorcaine (02/19/18 03:30) Ketorolac Injection (Toradol Injection) (02/19/18 03:30) Medications Given in ED Current Medications Medications Dose Ordered Sig/Colton Route Start Time Stop Time Status Last Admin Dose Admin Bupivacaine HCl 30 ml ONCE ONCE INJ 02/19/18 03:30 02/19/18 03:31 DC 02/19/18 03:29 30 ML Ketorolac Tromethamine 30 mg ONCE ONCE IM 02/19/18 03:30 02/19/18 03:31 DC 02/19/18 03:27 30 MG Lidocaine HCl 20 ml ONCE ONCE INJ 02/19/18 03:30 02/19/18 03:31 DC 02/19/18 03:29 20 ML Vital Signs/I&O 02/19/18 02/19/18 03:12 03:48 Temp 94.9 Pulse 91 0 Resp 18 0 B/P (MAP) 148/102 (117) 0/0 Pulse Ox 99 0 O2 Delivery Room Air Blood Pressure Mean: 117 Progress Note : Progress Note It was again explained to the patient that we will not extracted tooth here. He was given an inferior alveolar nerve block in addition to a Toradol injection. Departure Impression Primary Impression: Pain, dental Disposition: HOME, SELF-CARE Condition: Improved Departure-Patient Inst. Decision time for Depature: 03:44 Referrals: CLARA CANO MD (PCP/Family) Primary Care Physician Patient Instructions: Dental Pain (DC) Add. Discharge Instructions: Use ibuprofen up to 600 mg every 6 hours and Tylenol (acetaminophen) up to 1000 mg every 6 hours as needed for pain. See a dentist as soon as possible. Continue with antibiotics as previously prescribed. Discontinue excessive consumption of alcohol for treatment of pain and take ibuprofen and Tylenol as directed above. Return to care if you have worsening symptoms such as development of fever, vomiting, etc. All discharge instructions reviewed with patient and/or family. Voiced understanding. FARRAH CARBALLO MD Feb 19, 2018 03:45
[2018-02-19 03:48] VITALS: BP 0/0
== END 2018-02-19 03:48 | disposition home or self-care (01) ==
LOC: EDUNIT# 03:09 → ER 03:10
DX: K08.89 Other specified disorders of teeth and supporting structures (principal); N40.0 Benign prostatic hyperplasia without lower urinary tract symptoms; M19.90 Unspecified osteoarthritis, unspecified site; I10 Essential (primary) hypertension; Z98.890 Other specified postprocedural states; Z79.82 Long term (current) use of aspirin; Z86.73 Personal history of transient ischemic attack (TIA), and cerebral infarction without residual deficits
CPT/HCPCS: 96372; 99284

== ENCOUNTER 2018-04-12 14:04 | Emergency (ER) | payer MEDICARE, OTHER ==
[~2018-04-12] VITALS: Ht 182.9 cm; Wt 86.2 kg
--- OUTSIDE RECORDS SUMMARY | 2018-04-12 14:10 | XMS REPORT ---
Author Author LORA JUSTIN Organization [facility] Address [address] [place] [address] Care Team Providers Care Beef Pusher Name Role Phone NHAN LORA Unavailable PROBLEMS Type Condition ICD9-CM Code [id number] Code Onset Dates Condition Status SNOMED Code Problem Other chronic pain G89.29 Active [id number] ALLERGIES No Information ENCOUNTERS Encounter Location Date Diagnosis [facility] [id number] [place] [address] 63575- 9881 Jan, Other chronic pain G89.29 [facility] [id number] [place] [address] 36409- 3400 Dec, Other chronic pain G89.29 [facility] [id number] [place] [address] 39540- 6479 Dec, Other chronic pain G89.29 [facility] [id number] [place] [address] 35083- 2953 Nov, Other chronic pain G89.29 [facility] [id number] [place] [address] 75721- 2739 Oct, Other chronic pain G89.29 [facility] [id number] [place] [address] 23027- 4433 Sep, Other chronic pain G89.29 [facility] [id number] [place] [address] 65982- 0589 Aug, Other chronic pain G89.29 [facility] [id number] [place] [address] 37602- 4888 Jul, Other chronic pain G89.29 [facility] [id number] [place] [address] 82066- 0590 05 Jul, 2017 Other chronic pain G89.29 [facility] [address] [facility] [id number] [place] [address] Jun, Other chronic pain G89.29 [facility] [address] [id number] [place] [address] 3[address] May, [facility] [address] [facility] [id number] [place] [address] 7055 Apr, [facility] [address] [facility] [id number] [place] [address], [place] [address] Apr, [facility] [address] [facility] [id number] [place] [address] 1680 March, [facility] [address] [facility] [id number] [place] [address], [place] [address] 8[address] Jan, [facility] [id number] [place] [address] 80479- 1793 Dec, [facility] [id number] [place] [address] Dec, [facility] [id number] [place] [address] 69518- 4249 Nov, [facility] [id number] [address] Nov, Other chronic pain G89.29 and Pain in right wrist M25.531 [facility] [id number] [address] 5[address] Oct, [facility] [address] [facility] [id number], [place] [address] 11 Sep, 2016 [facility] [address] [facility] [id number], [place] [address] 9[address] 12 Aug, 2016 [facility] [address] [facility] [id number], [place] [address] 13 Jul, 2016 [facility] [address], [place] [address] Jun, [facility] [id number] [place] [address] 7[address] May, [facility] [id number] [place] [address] 2546 Apr, [facility] [address] [place] [address] 2546 March, [facility] [id number] [place] [address] 26912- 2546 March, Wrist pain, right M25.531 and Prostate cancer C61 [facility] [address] [place] [address], [place] [address]- 2596 Jan, [facility] [address] [place] [address] 5606 Dec, [facility] [id number] [place] [address], [place] [address]- 3526 Dec, [facility] [address] [place] [address]- 3[address] Dec, [facility] [id number] [place] [place] [address]- 1656 Dec, Arthritis M19.90 [facility] [address], [place] [address] 25[address] Nov, Arthritis M19.90 [facility] [address], [place] [address] 25[address] Oct, Arthritis M19.90 [facility] [id number] [place] [address]- 2546 Sep, [facility] [address], [place] [address]- 2546 Sep, Arthritis 716.90 [facility] [id number] [place] [address]- 2546 Jul, Arthritis 716.90 [facility] [address], [place] [address]- 7121 Jun, Arthritis 716.90 [id number] [place] [address] 54939- 5574 Jun, Wrist pain 719.43 [address] [id number] [place] [address] 92596- 7364 May, Wrist pain 719.43 [place] [id number] [place] [address] 30722- 4938 Apr, [place] [id number] [place] [address] 75644- 2759 Apr, Wrist pain 719.43 and Headaches, 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
--- OUTSIDE RECORDS SUMMARY | 2018-04-12 14:10 | XMS REPORT ---
Author Author LORA JUSTIN Organization [facility] Address [address] [place] [address] Care Team Providers Care Retort Pre Cooker Name Role Phone NHAN LORA Unavailable PROBLEMS Type Condition ICD9-CM Code [id number] Code Onset Dates Condition Status SNOMED Code Problem Other chronic pain G89.29 Active [id number] ALLERGIES No Information ENCOUNTERS Encounter Location Date Diagnosis [facility] [id number] [place] [address] 52127- 4830 March, [facility] [id number] [place] [address] 89157- 0327 Dec, Other chronic pain G89.29 [facility] [id number] [place] [address] 51237- 8648 Dec, Other chronic pain G89.29 [facility] [id number] [place] [address] 34968- 2688 Nov, Other chronic pain G89.29 [facility] [id number] [place] [address] 20782- 2878 Oct, Other chronic pain G89.29 [facility] [id number] [place] [address] 71284- 1195 Sep, Other chronic pain G89.29 [facility] [id number] [place] [address] 21198- 1874 Aug, Other chronic pain G89.29 [facility] [id number] [place] [address] 49847- 9233 Jul, Other chronic pain G89.29 [facility] [id number] [place] [address] 51283- 4461 Jul, Other chronic pain G89.29 [facility] [address] [facility] [id number] [place] [address]- 7841 Jun, Other chronic pain G89.29 [facility] [id number] [place] [address], [place] [address]- 8622 May, [facility] [address] [facility] [id number] [place] [address]- 3357 Apr, [facility] [address] [facility] [id number] [place] [address], [place] [address]- 7727 Apr, [facility] [address] [facility] [id number] [place] [address], [place] [address]- 9962 March, [facility] [address] [facility] [id number] [place] [address], [place] [address]- 1437 Jan, [facility] [id number] [place] [address], [place] [address]- 1708 Dec, [facility] [id number] [place] [address], [place] [address]- 0867 Dec, [facility] [id number] [place] [address], [place] [address]- 4610 Nov, [facility] [id number] [place] [address] 1942 Nov, Other chronic pain G89.29 and Pain in right wrist M25.531 [facility] [address] [place] [address]- 8716 Oct, [facility] [address] [facility] [id number] [address]- 2445 11 Sep, 2016 [facility] [id number] [place] [address]- 8672 12 Aug, 2016 [facility] [address] [facility] [id number] [place] [address]- 5150 13 Jul, 2016 [facility] [address] [place] [address]- 2562 Jun, [facility] [address] [facility] [id number] [place] [address]- 6950 May, [facility] [id number] [place] [address]- 9616 Apr, [facility] [address] [facility] [id number] [place] [address]- 6446 March, [facility] [id number] [place] [address]- 4722 March, Wrist pain, right M25.531 and Prostate cancer C61 [facility] [address] [facility] [id number] [place] [address]- 1816 Jan, [facility] [id number] [address] Dec, [facility] [id number] [place] [address]- 7766 Dec, [facility] [id number] [place] [address]- 3709 Dec, [facility] [id number] [address] Dec, Arthritis M19.90 [facility] [address] [place] [address]- 3386 Nov, Arthritis M19.90 [facility] [address] [address]- 5596 Oct, Arthritis M19.90 [facility] [id number] [place] [address]- 4006 Sep, [facility] [id number] [place] [address]- 6926 Sep, Arthritis 716.90 [facility] [id number] [place] [address]- 2546 Jul, Arthritis 716.90 [facility] [address] [address]- 2610 Jun, Arthritis 716.90 [facility] [address] [address]- 0106 Jun, Wrist pain 719.43 [place] [address] [address]- 3270 May, Wrist pain 719.43 [address] [id number] [place] [address] 24842- 3757 Apr, [place] [id number] [place] [address] 62200- 7139 Apr, Wrist pain 719.43 and Headaches, 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 [place] [address] [address] [address]- 7534 March, Wrist pain, right 719.43 IMMUNIZATIONS No Known Immunizations SOCIAL HISTORY Never Assessed REASON FOR VISIT Controlled Refill Request PLAN OF CARE VITAL SIGNS MEDICATIONS Unknown Medications RESULTS No Results PROCEDURES No Known procedures INSTRUCTIONS MEDICATIONS ADMINISTERED No Known Medications MEDICAL (GENERAL) HISTORY Type Description Date Medical History hypertension Medical History mild stroke Medical History hyperlipidemia Medical History prostate cancer Surgical History wrist surgery Surgical History hernia repair Hospitalization History surgeries only Hospitalization History headache 11/2014
--- OUTSIDE RECORDS SUMMARY | 2018-04-12 14:11 | XMS REPORT | Continuity of Care Document ---
Author Author [facility] Organization [facility] Address Unknown Phone Unavailable Allergies Active Description Code Type Severity Reaction Onset Reported/Identified Relationship to Patient Clinical Status Yes No Known Drug Allergies [id number] Drug Allergy Unknown N/A 11/23/2014 Medications There [...] Ot C61 MALIGNANT NEOPLASM OF PROSTATE 05/21/2016 JAIN MD, ANDRÉS E Ot Z51.0 ENCOUNTER FOR ANTINEOPLASTIC RADIATION T 06/22/2016 CRISTOBAL MARTIN, ANDRÉS E Ot C61 MALIGNANT NEOPLASM OF PROSTATE 06/22/2016 CRISTOBAL MARTIN, ANDRÉS Jones Ot Z51.0 ENCOUNTER FOR ANTINEOPLASTIC RADIATION T 06/23/2016 CRISTOBAL MARTIN, ANDRÉS oJnes Ot C61 MALIGNANT NEOPLASM OF PROSTATE 06/23/2016 CRISTOBAL MARTIN, ANDRÉS Jones Ot Z51.0 ENCOUNTER FOR ANTINEOPLASTIC RADIATION T 02/18/2018 JITENDRA RUBIO APRN Ot I10 ESSENTIAL (PRIMARY) HYPERTENSION 02/18/2018 JITENDRA RUBIO APRN Ot K08.89 OTHER SPECIFIED DISORDERS OF TEETH AND S 02/18/2018 JITENDRA RUBIO APRN Ot Z79.82 DRUM TESTER (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 02/18/2018 JITENDRA RUBIO APRN Ot Z86.73 PRSNL HX OF TIA (TIA), AND CEREB INFRC W 02/18/2018 JITENDRA RUBIO APRN Ot Z87.19 PERSONAL HISTORY OF OTHER DISEASES OF TH 02/18/2018 JITENDRA RUBIO APRN Ot I10 ESSENTIAL (PRIMARY) HYPERTENSION 02/18/2018 JITENDRA RUBIO ANIMAL GENETICIST Ot K08.89 OTHER SPECIFIED DISORDERS OF TEETH AND S 02/18/2018 JITENDRA RUBIO APRN Ot R68.84 JAW PAIN 02/18/2018 JITENDRA RUBIO APRN Ot Z79.82 MCFP (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 02/18/2018 JITENDRA RUBIO APRN Ot Z86.73 PRSNL HX OF TIA (TIA), AND CEREB INFRC W 02/18/2018 JITENDRA RUBIO APRN Ot Z87.19 PERSONAL HISTORY OF OTHER DISEASES OF TH 02/19/2018 FARRAH CARBALLO MD Ot I10 ESSENTIAL (PRIMARY) HYPERTENSION 02/19/2018 FARRAH CARBALLO MD Ot K08.89 OTHER SPECIFIED DISORDERS OF TEETH AND S 02/19/2018 FARRAH CARBALLO MD Ot M19.90 UNSPECIFIED OSTEOARTHRITIS, UNSPECIFIED 02/19/2018 FARRAH CARBALLO MD Ot N40.0 BENIGN PROSTATIC HYPERPLASIA WITHOUT LOW 02/19/2018 FARRAH CARBALLO MD Ot Z79.82 DRUM TESTER (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 02/19/2018 FARRAH CARBALLO MD Ot Z86.73 PRSNL HX OF TIA (TIA), AND CEREB INFRC W 02/19/2018 FARRAH CARBALLO MD Ot Z98.890 OTHER SPECIFIED POSTPROCEDURAL STATES 02/21/2018 JITENDRA RUBIO APRN Ot I10 ESSENTIAL (PRIMARY) HYPERTENSION 02/21/2018 JITENDRA RUBIO APRN Ot K08.89 OTHER SPECIFIED DISORDERS OF TEETH AND S 02/21/2018 JITENDRA RUBIO APRN Ot R68.84 JAW PAIN 02/21/2018 JITENDRA RUBIO APRN Ot Z79.82 MCFP (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 02/21/2018 JITENDRA RUBIO APRN Ot Z86.73 PRSNL HX OF TIA (TIA), AND CEREB INFRC W 02/21/2018 JITENDRA RUBIO APRN Ot Z87.19 PERSONAL HISTORY OF OTHER DISEASES OF 02/21/2018 FARRAH CARBALLO MD Ot I10 ESSENTIAL (PRIMARY) HYPERTENSION 02/21/2018 FARRAH CARBALLO MD Ot K08.89 OTHER SPECIFIED DISORDERS OF TEETH AND S 02/21/2018 FARRAH CARBALLO MD Ot M19.90 UNSPECIFIED OSTEOARTHRITIS, UNSPECIFIED 02/21/2018 FARRAH CARBALLO MD Ot N40.0 BENIGN PROSTATIC HYPERPLASIA WITHOUT LOW 02/21/2018 FARRAH CARBALLO MD Ot Z79.82 DRUM TESTER (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 02/21/2018 FARRAH CARBALLO MD Ot Z86.73 PRSNL HX OF TIA (TIA), AND CEREB INFRC W 02/21/2018 FARRAH CARBALLO MD Ot Z98.890 OTHER SPECIFIED POSTPROCEDURAL STATES 02/24/2018 JITENDRA RUBIO APRN Ot I10 ESSENTIAL (PRIMARY) HYPERTENSION 02/24/2018 JITENDRA RUBIO APRN Ot K08.89 OTHER SPECIFIED DISORDERS OF TEETH AND S 02/24/2018 JITENDRA RUBIO APRN Ot Z79.82 MCFP (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 02/24/2018 JITENDRA RUBIO APRN Ot Z86.73 PRSNL HX OF TIA (TIA), AND CEREB INFRC W 02/24/2018 JITENDRA RUBIO APRN Ot Z87.19 PERSONAL HISTORY OF OTHER DISEASES OF TH Procedures There is no data. Results There is no data. Encounters ACCT No. Visit Date/Time Discharge Status Pt. Type Provider Facility Loc./Unit Complaint [id number] 02/19/2018 03:10:00 02/19/2018 03:48:00 DIS Emergency HARIS MARTIN, FARRAH Avalos [facility] ER DENTAL PAIN [id number] 02/18/2018 20:59:00 02/18/2018 21:18:00 DIS Emergency JITENDRA RUBIO ANIMAL GENETICIST [facility] ER JAW PAIN [id number] 02/18/2018 10:02:00 02/18/2018 10:25:00 DIS Emergency JITENDRA RUBIO ANIMAL GENETICIST [facility] ER DENTAL/RIGHT ARM PAIN [id number] 06/23/2016 00:10:00 06/23/2016 23:59:59 CLS Preadmit ANDRÉS JAIN MD [facility] ONC [id number] 04/14/2016 13:46:00 06/22/2016 00:01:00 DIS Outpatient ANDRÉS JAIN MD [facility] ONC [id number] 03/23/2016 13:46:00 03/23/2016 00:01:00 DIS Outpatient ANDRÉS JAIN MD [facility] ONC [id number] 11/26/2014 00:40:00 11/26/2014 12:14:00 DIS Inpatient RENO ELDER MD [facility] 4TH [id number] 11/23/2014 09:34:00 11/23/2014 12:20:00 DIS Emergency JITENDRA RUBIO APRN [facility] ER [id number] 02/07/2014 12:48:00 02/16/2014 13:25:00 DIS Outpatient PUAL LUONG MD [facility] REHAB
[2018-04-12 14:51] LABS: BASOPHILS % (AUTO) 0 % (0-10); EOSINOPHILS % (AUTO) 0 % (0-10); HEMATOCRIT 41 % (40-54); HEMOGLOBIN 14.7 G/DL (13.3-17.7); LYMPHOCYTES # (AUTO) 0.7 X 10^3 (1.0-4.0); LYMPHOCYTES % (AUTO) 14 % (12-44); MEAN CORPUSCULAR HEMOGLOBIN 33 PG (25-34); MEAN CORPUSCULAR HGB CONC 36 G/DL (32-36); MEAN CORPUSCULAR VOLUME 91 FL (80-99); MEAN PLATELET VOLUME 11.1 FL (7.4-10.4); MONOCYTES # (AUTO) 1.1 X 10^3 (0.0-1.0); MONOCYTES % (AUTO) 20 % (0-12); NEUTROPHILS # (AUTO) 3.5 X 10^3 (1.8-7.8); NEUTROPHILS % (AUTO) 66 % (42-75); PLATELET COUNT 82 10^3/uL (130-400); RED BLOOD COUNT 4.53 10^6/uL (4.35-5.85); RED CELL DISTRIBUTION WIDTH 14.4 % (10.0-14.5); WHITE BLOOD COUNT 5.3 10^3/uL (4.3-11.0)
[2018-04-12 15:12] LABS: BAND NEUTROPHILS 3 %; BASOPHILS % (MANUAL) 0 %; EOSINOPHILS % (MANUAL) 1 %; LYMPHOCYTES % (MANUAL) 18 %; MONOCYTES % (MANUAL) 16 %; NEUTROPHILS % (MANUAL) 62 %; RBC MORPH NORMAL
--- NOTE | 2018-04-12 15:16 | Diagnostic Imaging Report ---
PROCEDURE: CT head and CT cervical spine without contrast. TECHNIQUE: Multiple contiguous axial images were obtained through the brain and cervical spine without the use of intravenous contrast. Sagittal and coronal reformations through the cervical spine were then performed. INDICATION: Fall. COMPARISON: Comparison is made with prior CT head from 11/25/2014. FINDINGS: CT head: Ventricles and sulci are prominent consistent with cerebral atrophy. There is an area of encephalomalacia in the right occipital lobe consistent with prior infarct. There is moderate periventricular hypodensity noted consistent with chronic microvascular ischemia. No sulcal effacement or midline shift is detected. No hemorrhage is detected. Cisterns are patent. The visualized paranasal sinuses are clear. IMPRESSION: Chronic changes. No acute intracranial process is detected. CT cervical spine: Curvature and alignment of the cervical spine is normal. There is multilevel degenerative disc and facet disease. No fractures are identified. The prevertebral tissues are normal. The odontoid is intact. IMPRESSION: Cervical spondylosis. No acute bony abnormality is detected. Dictated by: Dictated on workstation # [id number]
[2018-04-12 15:18] LABS: ALANINE AMINOTRANSFERASE 50 U/L (0-55); ALKALINE PHOSPHATASE 85 U/L (40-136); BILIRUBIN,TOTAL 1.5 MG/DL (0.1-1.0); BUN/CREATININE RATIO 15; CALCIUM 9.9 MG/DL (8.5-10.1); CARBON DIOXIDE 25 MMOL/L (21-32); CHLORIDE 99 MMOL/L (98-107); CREATININE SERUM 0.82 MG/DL (0.60-1.30); GFR ESTIMATED > 60; GLUCOSE 163 MG/DL (70-105); MAGNESIUM 1.8 MG/DL (1.8-2.4); POTASSIUM 3.7 MMOL/L (3.6-5.0); SODIUM 137 MMOL/L (135-145); TOTAL PROTEIN 7.6 GM/DL (6.4-8.2); URIC ACID 5.6 MG/DL (2.6-7.2)
--- NOTE | 2018-04-12 15:20 | Diagnostic Imaging Report ---
PROCEDURE: CT chest without contrast. TECHNIQUE: Multiple contiguous axial images were obtained through the chest without the use of intravenous contrast. INDICATION: Left-sided chest pain. COMPARISON: None available. FINDINGS: Lungs and airway: No endoluminal nodule in the trachea. No pulmonary mass or consolidation. No indeterminate pulmonary nodules. Central calcified right upper lobe pulmonary nodule measures 1.2 cm and is compatible with old granulomatous infection. No features of pulmonary laceration or contusion. Pleura: No pleural effusion or pneumothorax. Heart and mediastinum: Thyroid is normal. No supraclavicular or axillary lymphadenopathy. No mediastinal, hilar or juxtaphrenic lymphadenopathy. Heart is normal in size without pericardial effusion. Coronary artery calcifications are present. Normal caliber thoracic aorta. No evidence of mediastinal hemorrhage. Assessment for vascular injury is limited without IV contrast. Upper abdomen: Diffuse hypoattenuation liver is indicative of hepatic steatosis. Large partially exophytic cyst in the upper pole of the right kidney measures 5 x 5 cm. There are also hypodensities in the upper pole left kidney which are also likely cysts but incompletely characterized. Musculoskeletal: Extensive motion artifact limits evaluation of the distal left clavicle. Remainder of the visualized portions of the clavicles are intact. No acute fracture in the thoracic spine. IMPRESSION: 1. No acute traumatic injury in the chest by noncontrast imaging. 2. No acute rib fracture. 3. Diffuse hepatic steatosis. 4. Coronary artery disease. Dictated by: Dictated on workstation # [id number]
--- NOTE | 2018-04-12 15:28 | Diagnostic Imaging Report ---
INDICATION: Left ankle pain. COMPARISON: None. FINDINGS: Three views of left ankle demonstrate no fracture dislocation. Articular surfaces are normal. Atherosclerosis is present. IMPRESSION: No fracture dislocation. Dictated by: Dictated on workstation # [id number]
--- NOTE | 2018-04-12 15:28 | Diagnostic Imaging Report ---
INDICATION: Left elbow injury, pain. COMPARISON: None. FINDINGS: Three views of the left elbow demonstrate a nondisplaced fracture of the distal humerus. There is intra-articular involvement. Small joint effusion is present. The proximal ulna and radius appear intact. IMPRESSION: Distal humeral fracture with intra-articular involvement. Dictated by: Dictated on workstation # [id number]
--- NOTE | 2018-04-12 15:28 | Diagnostic Imaging Report ---
INDICATION: Fall with left shoulder pain. COMPARISON: None. FINDINGS: Three views of the left shoulder demonstrate moderate degenerative changes of the AC and glenohumeral joints. There is no acute fracture or dislocation. There is a chronic healed fracture deformity involving the distal left clavicle. No osseous lesion. IMPRESSION: Degenerative joint disease without acute fracture. Dictated by: Dictated on workstation # [id number]
--- NOTE | 2018-04-12 15:29 | Diagnostic Imaging Report ---
INDICATION: Left foot pain. TECHNIQUE: AP, oblique, and lateral views of the left foot were obtained at 3:39 PM. FINDINGS: There is a linear lucency at the base of the fifth metatarsal, compatible with a nondisplaced fracture. The remaining bony structures are intact. The joint spaces are otherwise unremarkable. IMPRESSION: Acute nondisplaced fracture of the base of the fifth metatarsal. Dictated by: Dictated on workstation # [id number]
--- NOTE | 2018-04-12 15:34 | ED Fall/Injury ---
General Chief Complaint: Trauma-Non Activation Stated Complaint: PAIN ON LEFT SIDE,FREQ FALLS Nursing Triage Note: TO ROOM PER W/C REPORTS FELL 10DAYS AGO CON'T TO HAVE PAIN IN L SHOULDER AND L ANKLE. WITH CONFUSION REPORTS USED TO RUN AND LIFT WTS BEFORE FALL. ALSO ADMITS TO DINKING BEER DAILY BEFORE FALL. Source: patient Exam Limitations: no limitations History of Present Illness Date Seen by Provider: Apr 12, 2018 Time Seen by Provider: 14:15 Initial Comments This patient presents to emergency room with complaints of injuries sustained from a fall 10 days ago. He has pain in the left foot and the left shoulder and elbow region. He had been drinking alcohol routinely until the fall. He states he quit drinking alcohol after he fell because he was scared to drink after that. He has had some confusion and difficulty remembering things since that time. He has been ambulating with difficulty. He had no loss of consciousness after the fall. Patient also complains of generalized pain in the torso. Allergies and Home Medications Allergies Coded Allergies: No Known Drug Allergies (Unverified , 11/23/14) Home Medications Aspirin 81 Mg Tablet.dr, 81 MG PO DAILY, (Reported) Clonidine HCl 0.1 Mg Tablet, 0.1 MG PO DAILY PRN for BLOOD PRESSURE > 145, ( Reported) Finasteride 5 Mg Tablet, 5 MG PO DAILY, (Reported) Hctz/Lisinopril 1 Tab Tablet, 1 TAB PO DAILY, (Reported) Hydrocodone Bit/Acetaminophen 1 Each Tablet, 1 TAB PO Q6H PRN for HEADACHE, ( Reported) Hydrocodone/Acetaminophen 1 Each Tablet, 1 EACH PO Q6H Prescribed by: FARRAH LUCIANO on 04/12/18 1624 Loratadine 10 Mg Tablet, 10 MG PO DAILY PRN for ALLERGIES, (Reported) Melatonin/Pyridoxine HCl (B6) 1 Each Tablet, 300-600 MCG PO HS PRN for INSOMNIA, (Reported) TAKES 1-2 TABLETS Multivitamins 1 Tab Tablet, 1 TAB PO HS, (Reported) Simvastatin 40 Mg Tablet, 20 MG PO DAILY, (Reported) TAKES 1/2 (40MG) TABLET Patient Home Medication List Home Medication List Reviewed: Yes Review of Systems Constitutional: no symptoms reported Eyes: No Symptoms Reported Ears, Nose, Mouth, Throat: no symptoms reported Respiratory: no symptoms reported Cardiovascular: no symptoms reported Gastrointestinal: no symptoms reported Genitourinary: no symptoms reported Musculoskeletal: see HPI Skin: no symptoms reported Psychiatric/Neurological: See HPI Past Uzhfoow-Afpxwb-Lmmosp Hx Past Med/Social Hx: Reviewed and Corrections made Patient Social History Alcohol Use: Regular Use Number of Drinks Today: BB Alcohol Beverage of Choice: Beer, [place] Recreational Drug Use: No Smoking Status: Never a Smoker Recent Foreign Travel: No Contact w/Someone Who Travel: No Recent Infectious Disease Expo: No Recent Hopitalizations: No Past Medical History Surgeries: Yes (HERNIA REPAIR) Orthopedic Respiratory: No Cardiac: Yes Hypertension Neurological: Yes TIA Reproductive Disorders: No Sexually Transmitted Disease: No HIV/AIDS: No Genitourinary: Yes Benign Prostatic Hyperpl Gastrointestinal: No Musculoskeletal: Yes Arthritis Endocrine: No Loss of Vision: Left Hearing Impairment: Denies Cancer: No Psychosocial: Yes (Alcohol dependence) Integumentary: No Blood Disorders: No Family Medical History Reviewed Nursing Family Hx Hypertension 19 FATHER Physical Exam Vital Signs Vital Signs - First Documented 04/12/18 14:09 Pulse 107 Resp 18 B/P (MAP) 138/109 (119) Pulse Ox 97 O2 Delivery Room Air Capillary Refill : Less Than 3 Seconds General Appearance: WD/WN, mild distress HEENT: normal ENT inspection, pharynx normal Neck: non-tender, supple, normal inspection Cardiovascular: regular rate, rhythm, no edema, no murmur Respiratory: lungs clear, normal breath sounds, no respiratory distress, no accessory muscle use, other (Tenderness to palpation over the chest wall) Gastrointestinal: normal bowel sounds, soft, tenderness (Mild and generalized) Back: normal inspection Extremities: other (Limited range of motion in the left shoulder and left elbow with notable tenderness to palpation in the elbow. There is also tenderness to palpation over the lateral left foot. 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 II-XII nml as tested, no motor/sensory deficits, alert, normal mood/affect, oriented x 3 Skin: normal color, warm/dry Jeniffer Coma Score Best Eye Response: (4) Open Spontaneously Best Verbal Response: (5) Oriented Best Motor Response: (6) Obeys Commands Rulo Total: 15 Progress/Results/Core Measures Results/Orders Lab Results Laboratory Tests Test 04/12/18 14:29 04/12/18 15:59 Range/Units White Blood Count 5.3 4.3-11.0 10^3/uL Red Blood Count 4.53 4.35-5.85 10^6/uL Hemoglobin 14.7 13.3-17.7 G/DL Hematocrit 41 40-54 % Mean Corpuscular Volume 91 80-99 FL Mean Corpuscular Hemoglobin 33 25-34 PG Mean Corpuscular Hemoglobin Concent 36 32-36 G/DL Red Cell Distribution Width 14.4 10.0-14.5 % Platelet Count 82 L 130-400 10^3/uL Mean Platelet Volume 11.1 H 7.4-10.4 FL Neutrophils (%) (Auto) 66 42-75 % Lymphocytes (%) (Auto) 14 12-44 % Monocytes (%) (Auto) 20 H 0-12 % Eosinophils (%) (Auto) 0 0-10 % Basophils (%) (Auto) 0 0-10 % Neutrophils # (Auto) 3.5 1.8-7.8 X 10^3 Lymphocytes # (Auto) 0.7 L 1.0-4.0 X 10^3 Monocytes # (Auto) 1.1 H 0.0-1.0 X 10^3 Eosinophils # (Auto) 0.0 0.0-0.3 10^3/uL Basophils # (Auto) 0.0 0.0-0.1 10^3/uL Neutrophils % (Manual) 62 % Lymphocytes % (Manual) 18 % Monocytes % (Manual) 16 % Eosinophils % (Manual) 1 % Basophils % (Manual) 0 % Band Neutrophils 3 % Blood Morphology Comment NORMAL Sodium Level 137 135-145 MMOL/L Potassium Level 3.7 3.6-5.0 MMOL/L Chloride Level 99 98-107 MMOL/L Carbon Dioxide Level 25 21-32 MMOL/L Anion Gap 13 5-14 MMOL/L Blood Urea Nitrogen 12 7-18 MG/DL Creatinine 0.82 0.60-1.30 MG/DL Estimat Glomerular Filtration Rate > 60 BUN/Creatinine Ratio 15 Glucose Level 163 H 70-105 MG/DL Uric Acid 5.6 2.6-7.2 MG/DL Calcium Level 9.9 8.5-10.1 MG/DL Magnesium Level 1.8 1.8-2.4 MG/DL Total Bilirubin 1.5 H 0.1-1.0 MG/DL Aspartate Amino Transf (AST/SGOT) 56 H 5-34 U/L Alanine Aminotransferase (ALT/SGPT) 50 0-55 U/L Alkaline Phosphatase 85 40-136 U/L Total Protein 7.6 6.4-8.2 GM/DL Albumin 4.0 3.2-4.5 GM/DL TSH [place] Testing 2.34 0.35-4.94 UIU/ML Serum Alcohol < 10 <10 MG/DL Urine Color YELLOW Urine Clarity CLEAR Urine pH 6.5 5-9 Urine Specific [place] 1.010 L 1.016-1.022 Urine Protein 3+ H NEGATIVE Urine Glucose (UA) 1+ H NEGATIVE Urine Ketones NEGATIVE NEGATIVE Urine Nitrite NEGATIVE NEGATIVE Urine Bilirubin NEGATIVE NEGATIVE Urine Urobilinogen NORMAL NORMAL MG/DL Urine Leukocyte Esterase 1+ H NEGATIVE Urine RBC (Auto) 2+ H NEGATIVE Urine RBC NONE /HPF Urine WBC 0-2 /HPF Urine Squamous Epithelial Cells 0-2 /HPF Urine Crystals NONE /LPF Urine Bacteria NONE /HPF Urine Casts NONE /LPF Urine Mucus TRACE /LPF Urine Culture Indicated NO My Orders Orders - FARRAH CARBALLO MD Alcohol (04/12/18 14:29) Cbc With Automated Diff (04/12/18 14:29) Comprehensive Metabolic Panel (04/12/18 14:29) Magnesium (04/12/18 14:29) Thyroid Analyzer (04/12/18 14:29) Ua Culture If Indicated (04/12/18 14:29) Saline Lock/Iv-Start (04/12/18 14:29) Shoulder, Left, 3 Views (04/12/18 14:29) Elbow, Left, 3 Views (04/12/18 14:29) Foot, Left, 3 Views (04/12/18 14:29) Ankle, Left, 3 Views (04/12/18 14:29) Ct Chest Wo (04/12/18 14:29) Ct Head/Cervical Spine Wo (04/12/18 14:29) Uric Acid (04/12/18 14:29) Manual Differential (04/12/18 14:29) Vital Signs/I&O 04/12/18 04/12/18 14:09 16:28 Pulse 107 90 Resp 18 18 B/P (MAP) 138/109 (119) 157/104 Pulse Ox 97 98 O2 Delivery Room Air Room Air Blood Pressure Mean: 119 Progress Progress Note : Progress Note Patient was thoroughly assessed by imaging. He was found to have a left elbow fracture and a left foot fracture. Imaging was reviewed with Dr. Monge. He recommended a boot on the left foot and a long-arm splint on the left arm. The long-arm splint was applied by this provider and patient was fitted with a boot. He was advised to ambulate with a cane. He was able to ambulate out of the emergency room on his own power. Follow-up instructions with Dr. Monge were reviewed. Diagnostic Imaging Diagonstic Imaging: Xray Plain Films/CT/US/NM/MRI: other (Left shoulder) Comments Left shoulder x-ray viewed by me and report reviewed. See report below: NAME: LORA SINGLETARY [facility] REC#: [id number] PT STATUS: REG ER : 1950 PHYSICIAN: FARRAH CARBALLO MD ADMIT DATE: 04/12/18/ER Signed Date of Exam: 04/12/18 SHOULDER, LEFT, 3 VIEWS INDICATION: Fall with left shoulder pain. COMPARISON: None. FINDINGS: Three views of the left shoulder demonstrate moderate degenerative changes of the AC and glenohumeral joints. There is no acute fracture or dislocation. There is a chronic healed fracture deformity involving the distal left clavicle. No osseous lesion. IMPRESSION: Degenerative joint disease without acute fracture. Dictated by: Dictated on workstation # [id number] Dict: 04/12/18 1521 Trans: 04/12/18 1547 Interpreted by: RENO TYSON Electronically signed by: RENO TYSON 04/12/18 1547 Diagonstic Imaging: CT Plain Films/CT/US/NM/MRI: c-spine, head Comments CT head and cervical spine viewed by me and report reviewed. See report below: NAME: LORA SINGLETARY [facility] REC#: [id number] PT STATUS: REG ER : 1950 PHYSICIAN: FARRAH CARBALLO MD ADMIT DATE: 04/12/18/ER Signed Date of Exam: 04/12/18 CT HEAD/CERVICAL SPINE WO PROCEDURE: CT head and CT cervical spine without contrast. TECHNIQUE: Multiple contiguous axial images were obtained through the brain and cervical spine without the use of intravenous contrast. Sagittal and coronal reformations through the cervical spine were then performed. INDICATION: Fall. COMPARISON: Comparison is made with prior CT head from 11/25/2014. FINDINGS: CT head: Ventricles and sulci are prominent consistent with cerebral atrophy. There is an area of encephalomalacia in the right occipital lobe consistent with prior infarct. There is moderate periventricular hypodensity noted consistent with chronic microvascular ischemia. No sulcal effacement or midline shift is detected. No hemorrhage is detected. Cisterns are patent. The visualized paranasal sinuses are clear. IMPRESSION: Chronic changes. No acute intracranial process is detected. CT cervical spine: Curvature and alignment of the cervical spine is normal. There is multilevel degenerative disc and facet disease. No fractures are identified. The prevertebral tissues are normal. The odontoid is intact. IMPRESSION: Cervical spondylosis. No acute bony abnormality is detected. Dictated by: Dictated on workstation # [id number] Dict: 04/12/18 1504 Trans: 04/12/181926 Interpreted by: TERESA RICHARD MD Electronically signed by: TERESA RICHARD MD 04/12/181926 Diagonstic Imaging: Xray Plain Films/CT/US/NM/MRI: other (Left foot) Comments X-ray of the left foot viewed by me and report reviewed. See report below: NAME: LORA SINGLETARY [facility] REC#: [id number] PT STATUS: REG ER : 1950 PHYSICIAN: FARRAH CARBALLO MD ADMIT DATE: 04/12/18/ER Signed Date of Exam: 04/12/18 FOOT, LEFT, 3 VIEWS INDICATION: Left foot pain. TECHNIQUE: AP, oblique, and lateral views of the left foot were obtained at 3:39 PM. FINDINGS: There is a linear lucency at the base of the fifth metatarsal, compatible with a nondisplaced fracture. The remaining bony structures are intact. The joint spaces are otherwise unremarkable. IMPRESSION: Acute nondisplaced fracture of the base of the fifth metatarsal. Dictated by: Dictated on workstation # [id number] Dict: 04/12/18 1522 Trans: 04/12/18 1550 Interpreted by: LUDIN VILLAFUERTE MD Electronically signed by: LUDIN VILLAFUERTE MD 04/12/18 1550 Diagonstic Imaging: Xray Plain Films/CT/US/NM/MRI: elbow Comments X-ray of the left elbow viewed by me and report reviewed. Discussed with the radiologist and with Dr. Monge. See report below: NAME: LORA SINGLETARY [facility] REC#: [id number] PT STATUS: REG ER : 1950 PHYSICIAN: FARRAH CARBALLO MD ADMIT DATE: 04/12/18/ER Signed Date of Exam: 04/12/18 ELBOW, LEFT, 3 VIEWS INDICATION: Left elbow injury, pain. COMPARISON: None. FINDINGS: Three views of the left elbow demonstrate a nondisplaced fracture of the distal humerus. There is intra-articular involvement. Small joint effusion is present. The proximal ulna and radius appear intact. IMPRESSION: Distal humeral fracture with intra-articular involvement. Dictated by: Dictated on workstation # [id number] Dict: 04/12/18 1522 Trans: 04/12/18 1601 Interpreted by: RENO TYSON Electronically signed by: RENO TYSON 04/12/18 1601 Diagonstic Imaging: CT Plain Films/CT/US/NM/MRI: chest, abdomen, pelvis Comments CT of the chest, abdomen and pelvis viewed by me and report reviewed. See report below: NAME: LORA SINGLETARY [facility] REC#: [id number] PT STATUS: REG ER : 1950 PHYSICIAN: FARRAH CARBALLO MD ADMIT DATE: 04/12/18/ER Signed Date of Exam: 04/12/18 CT CHEST WO PROCEDURE: CT chest without contrast. TECHNIQUE: Multiple contiguous axial images were obtained through the chest without the use of intravenous contrast. INDICATION: Left-sided chest pain. COMPARISON: None available. FINDINGS: Lungs and airway: No endoluminal nodule in the trachea. No pulmonary mass or consolidation. No indeterminate pulmonary nodules. Central calcified right upper lobe pulmonary nodule measures 1.2 cm and is compatible with old granulomatous infection. No features of pulmonary laceration or contusion. Pleura: No pleural effusion or pneumothorax. Heart and mediastinum: Thyroid is normal. No supraclavicular or axillary lymphadenopathy. No mediastinal, hilar or juxtaphrenic lymphadenopathy. Heart is normal in size without pericardial effusion. Coronary artery calcifications are present. Normal caliber thoracic aorta. No evidence of mediastinal hemorrhage. Assessment for vascular injury is limited without IV contrast. Upper abdomen: Diffuse hypoattenuation liver is indicative of hepatic steatosis. Large partially exophytic cyst in the upper pole of the right kidney measures 5 x 5 cm. There are also hypodensities in the upper pole left kidney which are also likely cysts but incompletely characterized. Musculoskeletal: Extensive motion artifact limits evaluation of the distal left clavicle. Remainder of the visualized portions of the clavicles are intact. No acute fracture in the thoracic spine. IMPRESSION: 1. No acute traumatic injury in the chest by noncontrast imaging. 2. No acute rib fracture. 3. Diffuse hepatic steatosis. 4. Coronary artery disease. Dictated by: Dictated on workstation # [id number] Dict: 04/12/18 1504 Trans: 04/12/18 164 Interpreted by: JOAO MCPHERSON MD Electronically signed by: JOAO MCPHERSON MD 04/12/181641 Diagonstic Imaging: Xray Plain Films/CT/US/NM/MRI: ankle Comments X-ray of the left ankle viewed by me and report reviewed. See report below: NAME: LORA SINGLETARY [facility] REC#: [id number] PT STATUS: REG ER : 1950 PHYSICIAN: FARRAH CARBALLO MD ADMIT DATE: 04/12/18/ER Signed Date of Exam: 04/12/18 ANKLE, LEFT, 3 VIEWS INDICATION: Left ankle pain. COMPARISON: None. FINDINGS: Three views of left ankle demonstrate no fracture dislocation. Articular surfaces are normal. Atherosclerosis is present. IMPRESSION: No fracture dislocation. Dictated by: Dictated on workstation # [id number] Dict: 04/12/18 1524 Trans: 04/12/18 1547 Interpreted by: RENO TYSON Electronically signed by: RENO TYSON 04/12/18 1547 Departure Impression Primary Impression: Left elbow fracture Qualified Codes: S42.402A - Unspecified fracture of lower end of left humerus , initial encounter for closed fracture Additional Impressions: Fracture of fifth metatarsal bone of left foot Qualified Codes: S92.355A - Nondisplaced fracture of fifth metatarsal bone, left foot, initial encounter for closed fracture Fall on same level Qualified Codes: W18.30XA - Fall on same level, unspecified, initial encounter Confusion Disposition: 01 HOME, SELF-CARE Condition: Improved Departure-Patient Inst. Referrals: CLARA CANO MD (PCP/Family) Primary Care Physician LUDIN MONGE MICHAEL P MD Patient Instructions: Elbow Fracture (DC), Foot Fracture (DC), SPLINT CARE Add. Discharge Instructions: Walk with a cane for added support. Use your boots anytime you are walking or weightbearing. Keep the elbow splint intact and in the sling. You may elevate on pillows when at rest. Keep the splint clean and dry. You may ice injured areas in 20 minute intervals to help with pain and swelling. Follow-up with Dr. Monge or the orthopedist of your choice as soon as possible. Call this afternoon or tomorrow morning to schedule an appointment. Return to care if you have any problems or concerns. All discharge instructions reviewed with patient and/or family. Voiced understanding. Scripts Hydrocodone/Acetaminophen (Hydrocodone-Acetamin 5-325 mg) 1 Each Tablet 1 EACH PO Q6H, #20 TAB Prov: FARRAH CARBALLO MD 04/12/18 Copy Copies To 1: LUDIN MONGE DO Copies To 2: CLARA CANO MD, JOSHUA T MD Apr 12, 2018 15:34
[2018-04-12 15:39] LABS: TSH (THYROID ANALYZER) 2.34 UIU/ML (0.35-4.94)
[2018-04-12 16:05] LABS: BILIRUBIN,URINE NEGATIVE (NEGATIVE); CLARITY,URINE CLEAR; COLOR,URINE YELLOW; GLUCOSE, URINE (UA) 1+ (NEGATIVE); KETONES,URINE NEGATIVE (NEGATIVE); LEUKOCYTE ESTERASE ,URINE 1+ (NEGATIVE); NITRITE,URINE NEGATIVE (NEGATIVE); PH,URINE 6.5 (5-9); PROTEIN,URINE 3+ (NEGATIVE); UROBILINOGEN,URINE NORMAL (NORMAL)
[2018-04-12 16:14] LABS: SQUAMOUS EPITHELIAL CELL,UR 0-2 /HPF; WBC,URINE 0-2 /HPF
[2018-04-12] MEDS ORDERED: HYDR-3812 PO (16:24)
[2018-04-12 16:28] VITALS: BP 157/104
== END 2018-04-12 16:28 | disposition home or self-care (01) ==
LOC: EDUNIT# 14:04 → ER 14:06
DX: S42.402A Unspecified fracture of lower end of left humerus, initial encounter for closed fracture (principal); S92.352A Displaced fracture of fifth metatarsal bone, left foot, initial encounter for closed fracture; R41.0 Disorientation, unspecified; I10 Essential (primary) hypertension; Z86.73 Personal history of transient ischemic attack (TIA), and cerebral infarction without residual deficits; Z79.82 Long term (current) use of aspirin; Z87.19 Personal history of other diseases of the digestive system; W19.XXXA Unspecified fall, initial encounter
CPT/HCPCS: 29125; 36415; 70450; 71250; 72125; 73030; 73080; 73610; 73630; 80053; 80320; 81000; 83735; 84443; 84550; 85007; 85027

== ENCOUNTER 2018-10-31 04:23 | Inpatient (IN) | payer MEDICARE, OTHER ==
[~2018-10-31] VITALS: Ht 182.9 cm; Wt 90.6 kg
[2018-10-31] VITALS (17 sets, daily range): BP systolic 101–144; BP diastolic 43–101
[~2018-10-31 04:23] MED LIST changes: +HYDR-3812 PO
[2018-10-31] MEDS ORDERED: RT-ALBUTEROL SULF 2.5 MG/3 ML PRE-MIX VIAL ONE (04:35)
[2018-10-31] MEDS ORDERED: RT-ALBUTEROL/IPRATROPIUM 3 ML (DUONEB) VIAL ONE (04:35)
[2018-10-31] MEDS ORDERED: RT-ALBUTEROL SULF 2.5 MG/3 ML PRE-MIX VIAL INH STA (04:38)
[2018-10-31] MEDS ORDERED: RT-ALBUTEROL/IPRATROPIUM 3 ML (DUONEB) VIAL INH ONE (04:45)
[2018-10-31 05:01] LABS: BASOPHILS % (AUTO) 0 % (0-10); EOSINOPHILS % (AUTO) 0 % (0-10); HEMATOCRIT 47 % (40-54); HEMOGLOBIN 17.2 G/DL (13.3-17.7); LYMPHOCYTES # (AUTO) 0.7 X 10^3 (1.0-4.0); LYMPHOCYTES % (AUTO) 18 % (12-44); MEAN CORPUSCULAR HEMOGLOBIN 31 PG (25-34); MEAN CORPUSCULAR HGB CONC 37 G/DL (32-36); MEAN CORPUSCULAR VOLUME 85 FL (80-99); MEAN PLATELET VOLUME 10.7 FL (7.4-10.4); MONOCYTES # (AUTO) 0.4 X 10^3 (0.0-1.0); MONOCYTES % (AUTO) 10 % (0-12); NEUTROPHILS # (AUTO) 2.7 X 10^3 (1.8-7.8); NEUTROPHILS % (AUTO) 72 % (42-75); PLATELET COUNT 180 10^3/uL (130-400); RED BLOOD COUNT 5.51 10^6/uL (4.35-5.85); RED CELL DISTRIBUTION WIDTH 13.8 % (10.0-14.5); WHITE BLOOD COUNT 3.8 10^3/uL (4.3-11.0)
[2018-10-31] MEDS ORDERED: ONDANSETRON 4 MG/2 ML (SDV) Z0FRAN ONE (05:02)
[2018-10-31 05:13] LABS: BILIRUBIN,URINE NEGATIVE (NEGATIVE); CLARITY,URINE CLEAR; COLOR,URINE YELLOW; GLUCOSE, URINE (UA) 3+ (NEGATIVE); KETONES,URINE NEGATIVE (NEGATIVE); LEUKOCYTE ESTERASE ,URINE NEGATIVE (NEGATIVE); NITRITE,URINE NEGATIVE (NEGATIVE); PH,URINE 5 (5-9); PROTEIN,URINE 1+ (NEGATIVE); UROBILINOGEN,URINE NORMAL (NORMAL)
[2018-10-31 05:13] LABS: PROTHROMBIN TIME PATIENT 13.5 SEC (12.2-14.7)
[2018-10-31] MEDS ORDERED: PIPERACILLIN SODIUM/TAZOBACTAM 4.5 GM in NS (IVPB) 100 ML IV ONE (05:15)
[2018-10-31] MEDS ORDERED: LORazepam INJ 2 MG/ML (ATIVAN) VIAL IVP ONE (05:15)
[2018-10-31] MEDS ORDERED: ONDANSETRON 4 MG/2 ML (SDV) Z0FRAN IVP ONE (05:15)
[2018-10-31 05:22] LABS: ALANINE AMINOTRANSFERASE 24 U/L (0-55); ALBUMIN 4.4 GM/DL (3.2-4.5); ALKALINE PHOSPHATASE 83 U/L (40-136); BILIRUBIN,TOTAL 0.9 MG/DL (0.1-1.0); BUN/CREATININE RATIO 22; CALCIUM 9.8 MG/DL (8.5-10.1); CARBON DIOXIDE 22 MMOL/L (21-32); CHLORIDE 99 MMOL/L (98-107); CREATININE SERUM 0.97 MG/DL (0.60-1.30); GFR ESTIMATED > 60; GLUCOSE 145 MG/DL (70-105); SODIUM 136 MMOL/L (135-145); TOTAL PROTEIN 7.3 GM/DL (6.4-8.2)
[2018-10-31] MEDS: NS IV 1000 ML 1,000 ML IV SCH ×3 (05:23→07:55)
[2018-10-31 05:24] LABS: BACTERIA,URINE NEGATIVE /HPF
--- NOTE | 2018-10-31 06:01 | ED General ---
General Chief Complaint: Respiratory Problems Stated Complaint: SOA Nursing Triage Note: PT TO ROOM #7 VIA [facility] EMS CART FROM HOME. EMS REPORTS PT DEVELOPED SUDDEN ONSET SOB APPROX 0200. EMS ACCESSED 20G IV TO LT FOREARM AND INFUSED, 125MG SOLUMEDROL. DUONEB BRTX RECIEVED IN TRANSIT TO ED. UPON ARRIVAL TO ED INITIAL O2 SAT VIA RA 79%. RESPIRATORY IN ROOM DURING TRIAGE AND INITITATED BIPAP. WHEEZES AND DIMINISHED BREATH SOUNDS HEARD BILAT LOWER LOBES. TYMPANIC TEMP 101.5. DRIED BLOOD AND ACTIVE BLEEDING TO MOUTH DT PT BITING TONGUE. PT REPORTS HE REMEMBERS BITING HIS TONGUE. PT REPORTS SHE HAS HAD FLU LIKE SYMPTOMS FOR APPROX 2 DAYS. A&OX4. Nursing Sepsis Screen: Possible Severe Sepsis Risk Source of Information: Patient Exam Limitations: No Limitations History of Present Illness Date Seen by Provider: Oct 31, 2018 Time Seen by Provider: 04:24 Initial Comments This 68-year-old gentleman presents to the emergency room in respiratory distress with hypoxia via [facility]. They report his oxygen saturation was around 70 percent on scene. He has had URI symptoms for a couple of days and abruptly developed shortness of breath tonight. EMS reports saturation rebounded to about 90 percent on a nonrebreather mask. Solu-Medrol 125 mg was administered. A DuoNeb and an albuterol treatment were given. Patient appears to have a laceration on the right lateral tongue with the blood in his mouth. Patient does not recall how this occurred. He denies any pain anywhere. He does not remember falling or injuring himself. He is notably tachycardic and presumed to be septic. Allergies and Home Medications Allergies Coded Allergies: No Known Drug Allergies (Unverified , 11/23/14) Home Medications Aspirin 81 Mg Tablet.dr, 81 MG PO DAILY, (Reported) Clonidine HCl 0.1 Mg Tablet, 0.1 MG PO DAILY PRN for BLOOD PRESSURE > 145, ( Reported) Finasteride 5 Mg Tablet, 5 MG PO DAILY, (Reported) Hctz/Lisinopril 1 Tab Tablet, 1 TAB PO DAILY, (Reported) Hydrocodone Bit/Acetaminophen 1 Each Tablet, 1 TAB PO Q6H PRN for HEADACHE, ( Reported) Hydrocodone/Acetaminophen 1 Each Tablet, 1 EACH PO Q6H Prescribed by: FARRAH LUCIANO on 04/12/18 1624 Loratadine 10 Mg Tablet, 10 MG PO DAILY PRN for ALLERGIES, (Reported) Melatonin/Pyridoxine HCl (B6) 1 Each Tablet, 300-600 MCG PO HS PRN for INSOMNIA, (Reported) TAKES 1-2 TABLETS Multivitamins 1 Tab Tablet, 1 TAB PO HS, (Reported) Simvastatin 40 Mg Tablet, 20 MG PO DAILY, (Reported) TAKES 1/2 (40MG) TABLET Patient Home Medication List Home Medication List Reviewed: Yes Review of Systems Review of Systems Constitutional: no symptoms reported EENTM: see HPI Respiratory: see HPI Cardiovascular: see HPI Gastrointestinal: no symptoms reported Genitourinary: no symptoms reported Musculoskeletal: no symptoms reported Skin: no symptoms reported Psychiatric/Neurological: See HPI Hematologic/Lymphatic: No Symptoms Reported Immunological/Allergic: no symptoms reported Past Awrsifn-Rzyryk-Jcexzy Hx Past Med/Social Hx: Reviewed Nursing Past Med/Soc Hx Patient Social History Alcohol Use: Occasionally Uses Alcohol Beverage of Choice: Beer Recreational Drug Use: No Smoking Status: Never a Smoker 2nd Hand Smoke Exposure: No Recent Foreign Travel: No Contact w/Someone Who Travel: No Recent Infectious Disease Expo: No Recent Hopitalizations: No Physical Abuse: No Sexual Abuse: No Past Medical History Surgeries: Yes (HERNIA REPAIR) Orthopedic Respiratory: No Cardiac: Yes Hypertension Neurological: Yes TIA Reproductive Disorders: No Sexually Transmitted Disease: No HIV/AIDS: No Genitourinary: Yes Benign Prostatic Hyperpl Gastrointestinal: No Musculoskeletal: Yes Arthritis Endocrine: No Loss of Vision: Left Hearing Impairment: Denies Cancer: No Psychosocial: Yes (Alcohol dependence) Integumentary: No Blood Disorders: No Family Medical History Hypertension 19 FATHER Physical Exam-Suspected Sepsis Physical Exam Vital Signs Vital Signs - First Documented 10/31/18 04:26 Temp 101.5 Pulse 115 Resp 40 B/P (MAP) 143/91 (108) Pulse Ox 94 O2 Delivery NIV/Bilevel Capillary Refill : Less Than 3 Seconds Blood Pressure Mean: 108 Height, Weight, BMI Height: 6'0" Weight: 225lbs. 0.0oz. 102.747041dg; BMI Method:Estimated General Appearance: WD/WN, Moderate Distress HEENT: PERRL/EOMI, Normal ENT Inspection, Other (oropharynx coated with blood. 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 Norm as Tested, Other (somewhat confused) Skin: normal color, warm/dry Focused Exam Sepsis Stage: Severe Sepsis Possible Source: Pulmonary Lactate Level 10/31/18 04:54: Lactic Acid Level 2.75*H 10/31/18 06:55: Time of Focused Exam: 07:13 Respiratory: Lungs Clear, Normal Breath Sounds, No Accessory Muscle Use, No Respiratory Distress, Other (BiPAP) Cardiovascular: Regular Rate, Rhythm, No Edema, No Murmur, Normal Peripheral Pulses Capillary Refill: Less Than 3 Seconds Skin: normal color, warm/dry Lactic Acid Level Laboratory Tests Test 10/31/18 04:54 10/31/18 06:55 Lactic Acid Level 2.75 MMOL/L (0.50-2.00) *H Progress/Results/Core Measures Suspected Sepsis Recent Fever Within 48 Hours: Yes Infection Criteria Present: Suspected New Infection New/Unexplained Altered Menta: No Sepsis Screen: Possible Severe Sepsis Risk SIRS Temperature:101.5 Pulse: 116 Respiratory Rate: 33 Laboratory Tests 10/31/18 04:54: White Blood Count 3.8L Blood Pressure 143 /91 Mean: 108 10/31/18 04:54: Lactic Acid Level 2.75*H 10/31/18 06:55: Laboratory Tests 10/31/18 04:35: Creatinine 0.97, INR Comment 1.0, Total Bilirubin 0.9 10/31/18 04:54: Platelet Count 180 Results/Orders Lab Results Laboratory Tests Test 10/31/18 04:35 10/31/18 04:54 10/31/18 05:03 10/31/18 06:55 Range/Units Prothrombin Time 13.5 12.2-14.7 SEC INR Comment 1.0 0.8-1.4 Activated Partial Thromboplast Time 24 24-35 SEC Sodium Level 136 135-145 MMOL/L Potassium Level 4.0 3.6-5.0 MMOL/L Chloride Level 99 98-107 MMOL/L Carbon Dioxide Level 22 21-32 MMOL/L Anion Gap 15 H 5-14 MMOL/L Blood Urea Nitrogen 21 H 7-18 MG/DL Creatinine 0.97 0.60-1.30 MG/DL Estimat Glomerular Filtration Rate > 60 BUN/Creatinine Ratio 22 Glucose Level 145 H 70-105 MG/DL Calcium Level 9.8 8.5-10.1 MG/DL Corrected Calcium 9.5 8.5-10.1 MG/DL Total Bilirubin 0.9 0.1-1.0 MG/DL Aspartate Amino Transf (AST/SGOT) 28 5-34 U/L Alanine Aminotransferase (ALT/SGPT) 24 0-55 U/L Alkaline Phosphatase 83 40-136 U/L Total Protein 7.3 6.4-8.2 GM/DL Albumin 4.4 3.2-4.5 GM/DL White Blood Count 3.8 L 4.3-11.0 10^3/uL Red Blood Count 5.51 4.35-5.85 10^6/uL Hemoglobin 17.2 13.3-17.7 G/DL Hematocrit 47 40-54 % Mean Corpuscular Volume 85 80-99 FL Mean Corpuscular Hemoglobin 31 25-34 PG Mean Corpuscular Hemoglobin Concent 37 H 32-36 G/DL Red Cell Distribution Width 13.8 10.0-14.5 % Platelet Count 180 130-400 10^3/uL Mean Platelet Volume 10.7 H 7.4-10.4 FL Neutrophils (%) (Auto) 72 42-75 % Lymphocytes (%) (Auto) 18 12-44 % Monocytes (%) (Auto) 10 0-12 % Eosinophils (%) (Auto) 0 0-10 % Basophils (%) (Auto) 0 0-10 % Neutrophils # (Auto) 2.7 1.8-7.8 X 10^3 Lymphocytes # (Auto) 0.7 L 1.0-4.0 X 10^3 Monocytes # (Auto) 0.4 0.0-1.0 X 10^3 Eosinophils # (Auto) 0.0 0.0-0.3 10^3/uL Basophils # (Auto) 0.0 0.0-0.1 10^3/uL Lactic Acid Level 2.75 *H 0.50-2.00 MMOL/L Urine Color YELLOW Urine Clarity CLEAR Urine pH 5 5-9 Urine Specific [place] 1.015 L 1.016-1.022 Urine Protein 1+ H NEGATIVE Urine Glucose (UA) 3+ H NEGATIVE Urine Ketones NEGATIVE NEGATIVE Urine Nitrite NEGATIVE NEGATIVE Urine Bilirubin NEGATIVE NEGATIVE Urine Urobilinogen NORMAL NORMAL MG/DL Urine Leukocyte Esterase NEGATIVE NEGATIVE Urine RBC (Auto) NEGATIVE NEGATIVE Urine RBC NONE /HPF Urine WBC NONE /HPF Urine Squamous Epithelial Cells 2-5 /HPF Urine Crystals NONE /LPF Urine Bacteria NEGATIVE /HPF Urine Casts PRESENT /LPF Urine Hyaline Casts 2-5 H /LPF Urine Mucus LARGE H /LPF Urine Culture Indicated NO Micro Results Microbiology 10/31/18 Influenza Types A,B Antigen (SHELIA) - Final, Complete My Orders Orders - FARRAH CARBALLO MD Cbc With Automated Diff (10/31/18 04:35) Comprehensive Metabolic Panel (10/31/18 04:35) Blood Culture (10/31/18 04:35) Sputum Culture (10/31/18 04:35) Urinalysis (10/31/18 04:35) Urine Culture (10/31/18 04:35) Protime With Inr (10/31/18 04:35) Partial Thromboplastin Time (10/31/18 04:35) Chest 1 View, Ap/Pa Only (10/31/18 04:35) Saline Lock/Iv-Start (10/31/18 04:35) Saline Lock/Iv-Start (10/31/18 04:35) Vital Signs Adult Sepsis Patie Q15M (10/31/18 04:35) O2 (10/31/18 04:35) Remove Rings In Anticipation O (10/31/18 04:35) Lactic Acid Analyzer (10/31/18 04:35) Influenza A And B Antigens (10/31/18 04:35) Albuterol Pre-Mix Nebs (Rt) (Proventil (10/31/18 04:38) Albuterol/Ipra Inhalation Soln (Duoneb I (10/31/18 04:45) Svn Small Volume Nebulizer (10/31/18 04:38) Svn Small Volume Nebulizer (10/31/18 04:38) Albuterol Pre-Mix Nebs (Rt) (Proventil (10/31/18 04:35) Albuterol/Ipra Inhalation Soln (Duoneb I (10/31/18 04:35) Ondansetron Injection (Zofran Injectio (10/31/18 05:02) Saline Lock/Iv-Start (10/31/18 05:07) Ns Iv 1000 Ml (Sodium Chloride 0.9%) (10/31/18 05:07) Piperacillin Sodium/Tazobactam (Zosyn Vi (10/31/18 05:15) Lorazepam Injection (Ativan Injection) (10/31/18 05:15) Ondansetron Injection (Zofran Injectio (10/31/18 05:15) Ct Head/Cervical Spine Wo (10/31/18 05:24) Medications Given in ED Current Medications Medications Dose Ordered Sig/Colton Route Start Time Stop Time Status Last Admin Dose Admin Albuterol/ Ipratropium 3 ml ONCE ONCE INH 10/31/18 04:45 10/31/18 04:46 DC 10/31/18 04:49 3 ML Lorazepam 1 mg ONCE ONCE IVP 10/31/18 05:15 10/31/18 05:16 DC 10/31/18 05:23 1 MG Ondansetron HCl 8 mg ONCE ONCE IVP 10/31/18 05:15 10/31/18 05:16 DC 10/31/18 05:08 8 MG Piperacillin Sod/ Tazobactam Sod 4.5 gm/Sodium Chloride 100 ml @ 200 mls/hr ONCE ONCE IV 10/31/18 05:15 10/31/18 05:44 DC 10/31/18 05:23 200 MLS/HR Vital Signs/I&O 10/31/18 10/31/18 10/31/18 10/31/18 04:26 04:30 04:49 06:41 Temp 101.5 Pulse 115 116 87 Resp 40 33 22 B/P (MAP) 143/91 (108) Pulse Ox 94 94 93 100 O2 Delivery NIV/Bilevel NIV Bilevel Capillary Refill : Less Than 3 Seconds Blood Pressure Mean: 108 Progress Note : Progress Note Patient was immediately placed on BiPAP and an hour-long nebulizer treatment was administered. Septic workup was pursued. He was given Ativan for anxiety. He had significant improvement in the first hour of his ER stay. He coughed up some very thick purulent sputum which was sent for culture. Zosyn was started as initial antibiotic of choice after cultures were obtained. Patient is considered to have severe sepsis because of his respiratory failure in the context of pneumonia. Patient was given Ativan due to anxiety causing intolerance of BiPAP. 3 L of IV normal saline were ordered in the ER. Diagnostic Imaging Diagonstic Imaging: Xray Plain Films/CT/US/NM/MRI: chest Comments Chest x-ray viewed by me and report reviewed. See report below: NAME: LORA SINGLETARY [facility] REC#: [id number] PT STATUS: REG ER : 1950 PHYSICIAN: FARRAH CARBALLO MD ADMIT DATE: 10/31/18/ER Draft Date of Exam:10/31/18 CHEST 1 VIEW, AP/PA ONLY INDICATION: Shortness of air. COMPARISON: 11/25/2014 FINDINGS: Single frontal radiographic view of the chest was obtained and demonstrates alveolar airspace disease within the medial right base and some patchy opacities in the left base as well. There is no large effusion or pneumothorax. Cardiac silhouette and pulmonary vasculature are within normal limits. Bony structures show no gross acute abnormalities. IMPRESSION: 1. Probable bibasilar pneumonia, right greater than left. Dictated on workstation # [id number] Dict: 10/31/18 0545 Trans: 10/31/18 0617 [id number] Interpreted by: SHAWN BECKMAN MD Diagonstic Imaging: CT Plain Films/CT/US/NM/MRI: c-spine, head Comments CT head and C-spine viewed by me and report reviewed. See report below: NAME: LORA SINGLETARY [facility] REC#: [id number] PT STATUS: REG ER : 1950 PHYSICIAN: FARRAH CARBALLO MD ADMIT DATE: 10/31/18/ER Draft Date of Exam:10/31/18 CT HEAD/CERVICAL SPINE WO PROCEDURE: CT head and CT cervical spine without contrast. TECHNIQUE: Multiple contiguous axial images were obtained through the brain and cervical spine without the use of intravenous contrast. Sagittal and coronal reformations through the cervical spine were then performed. INDICATION: Fall. COMPARISON: CT head and cervical spine without contrast 04/12/2018. FINDINGS: Examination is limited by motion artifact. CT head: Advanced generalized cerebral and cerebellar parenchymal volume loss. 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 No CT evidence of acute infarction. No intracranial hemorrhage, mass effect, hydrocephalus or extra-axial fluid collections. The skull base and calvarium are intact. The paranasal sinuses and mastoids are clear. CT cervical spine: Grade 1 anterolisthesis of C3 on C4 stable. Vertebral body heights preserved. Moderate diffuse degenerative endplate changes. No fractures are identified. Disc space height loss and facet arthropathy result in multilevel moderate to advanced neural foraminal narrowing which is greatest on the left at C3-C4 and C5-C6 where it is advanced. IMPRESSION: 1. Examination is limited by motion artifact. 2. No acute intracranial or cervical spine CT findings identified. Dictated on workstation # [id number] Dict: 10/31/1844 Trans: 10/31/18 0658 [facility] [id number] Interpreted by: ANSHU KONG MD Departure Communication (Admissions) Time/Spoke to Admitting Phy: 07:05 Dr. Dillon Time/Spoke to Consulting Phy: 07:00 Dr. Bryant Impression Primary Impression: Severe sepsis Additional Impressions: Acute respiratory failure Qualified Codes: J96.01 - Acute respiratory failure with hypoxia Tongue laceration Qualified Codes: S01.512A - Laceration without foreign body of oral cavity, initial encounter Bronchospasm Disposition: ADMITTED INPATIENT Condition: Improved Admissions Decision to Admit Reason: Admit from ER (General) Decision to Admit/Date: Oct 31, 2018 Time/Decision to Admit Time: 04:25 Departure-Patient Inst. Referrals: CLARA CANO MD (PCP/Family) Primary Care Physician FARRAH CARBALLO MD Oct 31, 2018 06:01
--- NOTE | 2018-10-31 06:17 | Diagnostic Imaging Report ---
INDICATION: Shortness of air. COMPARISON: 11/25/2014 FINDINGS: Single frontal radiographic view of the chest was obtained and demonstrates alveolar airspace disease within the medial right base and some patchy opacities in the left base as well. There is no large effusion or pneumothorax. Cardiac silhouette and pulmonary vasculature are within normal limits. Bony structures show no gross acute abnormalities. IMPRESSION: 1. Probable bibasilar pneumonia, right greater than left. Dictated by: Dictated on workstation # [id number]
--- NOTE | 2018-10-31 06:58 | Diagnostic Imaging Report ---
PROCEDURE: CT head and CT cervical spine without contrast. TECHNIQUE: Multiple contiguous axial images were obtained through the brain and cervical spine without the use of intravenous contrast. Sagittal and coronal reformations through the cervical spine were then performed. INDICATION: Fall. COMPARISON: CT head and cervical spine without contrast 04/12/2018. FINDINGS: Examination is limited by motion artifact. CT head: Advanced generalized cerebral and cerebellar parenchymal volume loss. 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 No CT evidence of acute infarction. No intracranial hemorrhage, mass effect, hydrocephalus or extra-axial fluid collections. The skull base and calvarium are intact. The paranasal sinuses and mastoids are clear. CT cervical spine: Grade 1 anterolisthesis of C3 on C4 stable. Vertebral body heights preserved. Moderate diffuse degenerative endplate changes. No fractures are identified. Disc space height loss and facet arthropathy result in multilevel moderate to advanced neural foraminal narrowing which is greatest on the left at C3-C4 and C5-C6 where it is advanced. IMPRESSION: 1. Examination is limited by motion artifact. 2. No acute intracranial or cervical spine CT findings identified. Dictated by: Dictated on workstation # [id number]
--- OUTSIDE RECORDS SUMMARY | 2018-10-31 08:03 | XMS REPORT ---
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 Name Role Phone NHAN LORA Unavailable PROBLEMS Type Condition ICD9-CM Code QHV02-YG Code Onset Dates Condition Status SNOMED Code Problem Arthritis M19.90 Active 7183694 Problem Other chronic pain G89.29 Active [id number] ALLERGIES No Information ENCOUNTERS Encounter Location Date Diagnosis [facility] [id number] [place] [address]395- 8061 Oct, Arthritis M19.90 [facility] [id number] [place] [address] 76820- 0799 Sep, Arthritis M19.90 [facility] [id number] [place] [address] 49343- 3058 Aug, Arthritis M19.90 [facility] [id number] [place] [address] 90908- 3313 07 Jul, 2018 Other chronic pain G89.29 [facility] [id number] [place] [address] 43441- 9859 Jul, Other chronic pain G89.29 and Arthritis M19.90 [facility] [id number] [place] [address] 96100- 6207 Jun, Arthritis M19.90 [facility] [id number] [place] [address] 99508- 3595 May, [facility] [id number] [place] [address] 31526- 4861 Jan, Other chronic pain G89.29 [facility] [id number] [place] [address] 42776- 5317 Dec, Other chronic pain G89.29 [facility] [address] [facility] [id number] [address] Dec, Other chronic pain G89.29 [facility] [address] [facility] [id number] [place] [address] 12530 2546 Nov, Other chronic pain G89.29 [facility] [address] [facility] [id number], [place] [address] Oct, Other chronic pain G89.29 [facility] [address] [facility] [id number] [place] [address] 45125 2547 Sep, Other chronic pain G89.29 [facility] [address] [facility] [id number] [place] [address] 60317- 8596 Aug, Other chronic pain G89.29 [facility] [id number] [place] [address] 38352- 3244 Jul, Other chronic pain G89.29 [facility] [address] [facility] [id number] [place] [address] 87559- 3893 Jul, Other chronic pain G89.29 [facility] [id number] [place] [address] 612101- 7379 Jun, Other chronic pain G89.29 [facility] [address] [address] May, [facility] [id number], [place] [address] Apr, [facility] [address] [facility] [id number], [place] [address] Apr, [facility] [address] [facility] [id number] [place] [address] 76383- 9656 March, [facility] [address] [facility] [id number], [place] [address] Jan, [facility] [address] [place] [address] 49390- 0906 Dec, [facility] [address] [facility] [id number] [place] [address] Dec, [facility] [address] [facility] [id number] [place] [address]76 Nov, [facility] [address] [facility] [id number] [place] [address] 5813 Nov, Other chronic pain G89.29 and Pain in right wrist M25.531 [facility] [address] [id number] [place] [address] Oct, [facility] [id number] [place] [address], [place] [address] Sep, [facility] [address] [facility] [id number] [place] [address] 4215 Aug, [facility] [address] [facility] [id number] [place] [address], [place] [address]19 Jul, [facility] [address] [facility] [id number] [place] [address]- 4493 Jun, [facility] [address] [facility] [id number] [place] [address] 8315 May, [facility] [id number] [address] Apr, [facility] [address] [facility] [id number], [place] [address] March, [facility] [address] [facility] [id number] [place] [address] 9674 March, Wrist pain, right M25.531 and Prostate cancer C61 [facility] [address] [facility] [id number] [place] [address] [address] Jan, [facility] [address] [facility] [id number] [place] [address]- 8566 Dec, [facility] [address], [place] [address]807 Dec, [facility] [id number] [place] [address] 13107- 5436 Dec, [facility] [id number] [place] [address] 46120 2546 Dec, Arthritis M19.90 [facility] [id number] [place] [address] 53711 2546 Nov, Arthritis M19.90 [facility] [address] [place] [address] 15168- 3186 Oct, Arthritis M19.90 [facility] [address] [place] [address] 508785- 4586 Sep, [facility] [id number] [place] [address] 10095- 1676 Sep, Arthritis 716.90 [facility] [address] [place] [address] 04164 2546 Jul, Arthritis 716.90 [facility] [address] [place] [address] 41078- 8956 Jun, Arthritis 716.90 [facility] [address], [place] [address] Jun, Wrist pain 719.43 [facility] [address], [place] [address] May, Wrist pain 719.43 [facility] [address], [place] [address] Apr, [facility] [address], [place] [address] 9856 Apr, Wrist pain 719.43 and Headaches, 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
--- OUTSIDE RECORDS SUMMARY | 2018-10-31 08:04 | XMS REPORT ---
Author Author LORA JUSTIN Organization [facility] Address [address] [place] [address] Care Team Providers [employer] Executive Director Name Role Phone NHAN LORA Unavailable PROBLEMS Type Condition ICD9-CM Code NQS52-IB Code Onset Dates Condition Status SNOMED Code Problem Arthritis M19.90 Active 4553853 Problem Other chronic pain G89.29 Active 00944140 ALLERGIES No Information ENCOUNTERS Encounter Location Date Diagnosis [facility] [id number] [place] [address] 93693- 2664 Jul, Other chronic pain G89.29 [facility] [id number] [place] [address] 24466- 7634 Jul, Other chronic pain G89.29 and Arthritis M19.90 [facility] [id number] [place] [address] 11930- 0652 Jun, Arthritis M19.90 [facility] [id number] [place] [address] 80185- 2813 May, [facility] [id number] [place] [address] 93478- 7160 Jan, Other chronic pain G89.29 [facility] [id number] [place] [address] 26858- 8296 Dec, Other chronic pain G89.29 [facility] [id number] [place] [address] 81706- 3503 Dec, Other chronic pain G89.29 [facility] [id number] [place] [address] 85831- 3369 Nov, Other chronic pain G89.29 [facility] [id number] [place] [address] 27522- 3628 Oct, Other chronic pain G89.29 [facility] [address] [place] [address]- 6909 Sep, Other chronic pain G89.29 [facility] [id number] [address]- 6476 Aug, Other chronic pain G89.29 [facility] [id number] [place] [address] 268572- 6814 Jul, Other chronic pain G89.29 [facility] [id number] 4310 05 Jul, 2017 Other chronic pain G89.29 [facility] [id number] [place] [address] 85198- 4990 Jun, Other chronic pain G89.29 [facility] [address], [place] [address]- 6180 May, [facility] [address], [place] [address]- 9462 Apr, [facility] [id number] [place] [address] 41087- 6830 Apr, [facility] [address], [place] [address]- 4165 March, [facility] [address], [place] [address]- 6664 Jan, [facility] [address], [place] [address]- 6156 Dec, [facility] [id number] [place] [address] 33410- 0756 Dec, [facility] [address] 2400 Nov, [facility] [address], [place] [address]- 7486 02 Luis, 2017 Other chronic pain G89.29 and Pain in right wrist M25.531 [facility] [id number] [address]- 7670 13 Oct, 2016 [facility] [address] [facility] [id number] [place] [address] 96876- 7676 Sep, [facility] [id number], [place] [address]- 4595 Aug, [facility] [address] [facility] [id number] [place] [address] 00558- 6843 13 Jul, 2016 [facility] [id number] [place] [address], [place] [address]- 2490 Jun, [facility] [id number] [place] [address] 19094- 2924 May, [facility] [id number] [place] [address] 86217- 3612 Apr, [facility] [id number], [place] [address]- 8342 March, [facility] [id number] [place] [address] 35739- 6929 March, Wrist pain, right M25.531 and Prostate cancer C61 [facility] [address], [place] [address]- 8323 Jan, [facility] [address], [place] [address]- 3039 Dec, [facility] [id number], [place] [address]- 0095 Dec, [facility] [id number] [place] [address] 34858- 2694 Dec, [facility] [id number], [place] [address]- 8556 Dec, Arthritis M19.90 [facility] [id number] [place] [address] 52857- 8756 Nov, Arthritis M19.90 [facility] [id number] [place] [address] 82559- 8706 Oct, Arthritis M19.90 [facility] [id number] [place] [address] 06460- 9916 Sep, [place] [id number] [place] [address] 45561- 4634 Sep, Arthritis 716.90 [facility] [id number] [place] [address] 22834- 9618 Jul, Arthritis 716.90 [place] [id number] [place] [address] 89894- 5936 Jun, Arthritis 716.90 [place] [id number] [place] [address] 77596- 2344 Jun, Wrist pain 719.43 [place] [id number] [place] [address] 90407- 8557 May, Wrist pain 719.43 [place] [id number] [place] [address] 11634- 2970 Apr, [place] [id number] [place] [address] 20437- 3064 Apr, Wrist pain 719.43 and Headaches, 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 [place] [id number] [place] [address] 05409- 8039 March, Wrist pain, right 719.43 IMMUNIZATIONS No Known Immunizations SOCIAL HISTORY Never Assessed REASON FOR VISIT Lab (walk-in) PLAN OF CARE Activity Details Future Test PDM - TRAMADOL [id number] VITAL SIGNS MEDICATIONS Unknown Medications RESULTS No Results PROCEDURES Procedure Date Ordered Result Body Site LAB NOT BILLED BY [facility] Jul 08, 2018 INSTRUCTIONS MEDICATIONS ADMINISTERED No Known Medications MEDICAL (GENERAL) HISTORY Type Description Date Medical History hypertension Medical History mild stroke Medical History hyperlipidemia Medical History prostate cancer Surgical History wrist surgery Surgical History hernia repair Hospitalization History surgeries only Hospitalization History headache 11/2014
--- OUTSIDE RECORDS SUMMARY | 2018-10-31 08:04 | XMS REPORT ---
Author Author LORA JUSTIN Organization [facility] Address [address] [place] [address] Care Team Providers [employer]ricator Name Role Phone NHAN LORA Unavailable PROBLEMS Type Condition ICD9-CM Code [id number] Code Onset Dates Condition Status SNOMED Code Problem Arthritis M19.90 Active 3104945 Problem Other chronic pain G89.29 Active [id number] ALLERGIES No Information ENCOUNTERS Encounter Location Date Diagnosis [facility] [address] 39437- 5054 Aug, Arthritis M19.90 [facility] [address] 98470- 7073 Jul, Other chronic pain G89.29 [facility] [id number] [place] [address] 29858- 6374 Jul, Other chronic pain G89.29 and Arthritis M19.90 [facility] [address] 41102- 7360 Jun, Arthritis M19.90 [facility] [id number] [place] [address] 53782- 6689 May, [facility] [address] 33315- 9582 Jan, Other chronic pain G89.29 [facility] [id number] [place] [address] 69374- 7969 Dec, Other chronic pain G89.29 [facility] [address] 15984- 8089 Dec, Other chronic pain G89.29 [facility] [address] 20874- 0992 Nov, Other chronic pain G89.29 [facility] [address] [address] Oct, Other chronic pain G89.29 [facility] [address], [place] [address]- 2986 Sep, Other chronic pain G89.29 [facility] [address] [place] [address] 79774- 9456 Aug, Other chronic pain G89.29 [facility] [id number] [place] [address] 09674- 1630 Jul, Other chronic pain G89.29 [facility] [id number] [place] [address] 21331- 9406 05 Jul, 2017 Other chronic pain G89.29 [facility] [address] [place] [address] 90715- 2475 Jun, Other chronic pain G89.29 [facility] [address], [place] [address]- 1800 May, [facility] [id number] [place] [address] 34772- 2336 Apr, [facility] [address], [place] [address]- 1316 Apr, [facility] [address] [address]- 1626 March, [facility] [address], [place] [address]- 9646 Jan, [facility] [address], [place] [address]- 8326 Dec, [facility] [address], [place] [address]- 2546 Dec, [facility] [address], [place] [address]- 5887 Nov, [facility] [address] [id number] [place] [address]- 9274 Nov, Other chronic pain G89.29 and Pain in right wrist M25.531 [facility] [place] [facility] [address] [id number] [place] [address]- 2041 Oct, [facility] [place] [facility] [address] [id number] [place] [address]- 6695 Sep, [facility] [address] [id number] [place] [address]- 3023 Aug, [facility] [id number] [place] [address], [place] [address]- 5804 Jul, [facility] [place] [facility] [address] [facility] [id number] [place] [address]- 6634 Jun, [facility] [address] [facility] [id number] [place] [address], [place] [address]- 9939 May, [facility] [address] [facility] [id number] [place] [address]- 5761 Apr, [facility] [address] [facility] [id number] [place] [address]- 8856 March, [facility] [id number] [address]- 2487 March, Wrist pain, right M25.531 and Prostate cancer C61 [facility] [address] [facility] [id number] [place] [address]- 4581 Jan, [facility] [address] [facility] [id number] [place] [address]- 5767 Dec, [facility] [address] [facility] [id number] [place] [address]- 4153 Dec, [facility] [address] [facility] [id number] [place]- 8865 Dec, [facility] [id number] [address]- 1498 Dec, Arthritis M19.90 [facility] [id number] [place] [address] 104490- 2986 Nov, Arthritis M19.90 [facility] [id number] [place] [address] 11614- 9986 Oct, Arthritis M19.90 [facility] [id number] [place] [address] 208675- 2508 Sep, [facility] [id number] [place] [address] 309886- 6764 Sep, Arthritis 716.90 [place] [id number] [place] [address] 901534- 4806 Jul, Arthritis 716.90 [place] [id number] [place] [address] 62295- 1157 Jun, Arthritis 716.90 [place] [id number] [place] [address] 82642- 4701 Jun, Wrist pain 719.43 [place] [id number] [place] [address] 62608- 6804 May, Wrist pain 719.43 [place] [id number] [place] [address] 74620- 6316 Apr, [place] [id number] [place] [address] 41701- 0024 Apr, Wrist pain 719.43 and Headaches, 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
--- OUTSIDE RECORDS SUMMARY | 2018-10-31 08:04 | XMS REPORT ---
Author Author LORA JUSTIN Organization [facility] Address [address] [place] [address] Care Team Providers Care Active Directory Administrator Name Role Phone NHAN LORA Unavailable PROBLEMS Type Condition ICD9-CM Code MDQ74-IH Code Onset Dates Condition Status SNOMED Code Problem Arthritis M19.90 Active 7820523 Problem Other chronic pain G89.29 Active [id number] ALLERGIES No Information ENCOUNTERS Encounter Location Date Diagnosis [facility] [id number] [place] [address] 38062- 7091 Jul, Other chronic pain G89.29 [facility] [id number] [place] [address] 50494- 4412 Jul, Other chronic pain G89.29 and Arthritis M19.90 [facility] [id number] [place] [address] 28354- 6666 Jun, Arthritis M19.90 [facility] [id number] [place] [address] 21943- 9158 May, [facility] [id number] [place] [address] 59027- 0202 Jan, Other chronic pain G89.29 [facility] [id number] [place] [address] 92936- 6050 Dec, Other chronic pain G89.29 [facility] [id number] [place] [address] 26819- 0786 Dec, Other chronic pain G89.29 [facility] [id number] [place] [address] 05579- 0939 Nov, Other chronic pain G89.29 [facility] [id number] [place] [address] 07046- 7877 Oct, Other chronic pain G89.29 [facility] [address], [place] [address]- 0216 Sep, Other chronic pain G89.29 [facility] [id number], [place] [address]- 8266 Aug, Other chronic pain G89.29 [facility] [address] [place] [address] 449135- 1198 Jul, Other chronic pain G89.29 [facility] [id number]- 6199 05 Jul, 2017 Other chronic pain G89.29 [facility] [address] [place] [address] 80016- 1025 Jun, Other chronic pain G89.29 [facility] [address], [place] [address]- 0935 May, [facility] [address], [place] [address]- 1521 Apr, [facility] [id number] [place] [address] 70344- 2236 Apr, [facility] [address], [place] [address]- 6832 March, [facility] [address], [place] [address]- 2085 Jan, [facility] [address], [place] [address]- 1726 Dec, [facility] [address] [place] [address] 38416- 4876 Dec, [facility] [address]- 9900 Nov, [facility] [address], [place] [address]- 4756 02 Luis, 2017 Other chronic pain G89.29 and Pain in right wrist M25.531 [facility] [id number] [address]- 8400 13 Oct, 2016 [facility] [address] [facility] [id number] [place] [address] 41924- 8113 Sep, [facility] [id number], [place] [address]- 9690 Aug, [facility] [address] [facility] [id number] [place] [address] 68814- 3869 13 Jul, 2016 [facility] [id number] [place] [address], [place] [address]- 1077 Jun, [facility] [id number] [place] [address] 90469- 3566 May, [facility] [id number] [place] [address] 55130- 8235 Apr, [facility] [id number], [place] [address]- 0388 March, [facility] [address] [place] [address] 46667- 9341 March, Wrist pain, right M25.531 and Prostate cancer C61 [facility] [address], [place] [address]- 1597 Jan, [facility] [address], [place] [address]- 8777 Dec, [facility] [id number], [place] [address]- 2145 Dec, [facility] [id number] [place] [address] 62695- 5354 Dec, [facility] [id number], [place] [address]- 2399 Dec, Arthritis M19.90 [facility] [id number] [place] [address] 95167- 5766 Nov, Arthritis M19.90 [facility] [id number] [place] [address] 69911- 2226 Oct, Arthritis M19.90 [facility] [id number] [place] [address] 18684- 5116 Sep, [place] [id number] [place] [address] 75394- 4321 Sep, Arthritis 716.90 [place] [id number] [place] [address] 07928- 4508 Jul, Arthritis 716.90 [place] [id number] [place] [address] 90204- 0096 Jun, Arthritis 716.90 [place] [id number] [place] [address] 13939- 8645 Jun, Wrist pain 719.43 [place] [id number] [place] [address] 79352- 2576 May, Wrist pain 719.43 [place] [id number] [place] [address] 259611- 6211 Apr, [place] [id number] [place] [address] 10490- 2276 Apr, Wrist pain 719.43 and Headaches, 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
--- OUTSIDE RECORDS SUMMARY | 2018-10-31 08:04 | XMS REPORT ---
Author Author LORA JUSTIN Organization [facility] Address [address] [place] [address] Care Team Providers Care Swiss Type Screw Machine Operator Name Role Phone NHAN LORA Unavailable PROBLEMS Type Condition ICD9-CM Code YFZ75-[id number] Code Onset Dates Condition Status SNOMED Code Problem Arthritis M19.90 Active 2930683 Problem Other chronic pain G89.29 Active 69606934 ALLERGIES No Information ENCOUNTERS Encounter Location Date Diagnosis [facility] [id number] [place] [address] 02193- 1470 Sep, Arthritis M19.90 [facility] [id number] [place] [address] 55001- 3517 Aug, Arthritis M19.90 [facility] [id number] [place] [address] 14740- 9050 07 Jul, 2018 Other chronic pain G89.29 [facility] [id number] [place] [address] 02946- 5739 Jul, Other chronic pain G89.29 and Arthritis M19.90 [facility] [id number] [place] [address] 70699- 2200 Jun, Arthritis M19.90 [facility] [id number] [place] [address] 48041- 0957 May, [facility] [id number] [place] [address] 98435- 5325 Jan, Other chronic pain G89.29 [facility] [id number] [place] [address] 62840- 7276 Dec, Other chronic pain G89.29 [facility] [id number] [place] [address] 23368- 8277 Dec, Other chronic pain G89.29 [facility] [address] [place] [address]- 0984 Nov, Other chronic pain G89.29 [facility] [address], [place] [address]- 2556 Oct, Other chronic pain G89.29 [facility] [address], [place] [address]- 2666 Sep, Other chronic pain G89.29 [facility] [address] [facility] [id number] [place] [address], [place] [address]- 8276 Aug, Other chronic pain G89.29 [facility] [id number] [place] [address] 03459- 8086 Jul, Other chronic pain G89.29 [facility] [id number] [place] [address] 38650- 5656 Jul, Other chronic pain G89.29 [facility] [address], [place] [address]- 8126 Jun, Other chronic pain G89.29 [facility] [address], [place] [address]- 5956 May, [facility] [address], [place] [address]- 6276 Apr, [facility] [address], [place] [address]- 6816 Apr, [facility] [id number], [place] [address] 2546 March, [facility] [address], [place] [address]- 5386 Jan, [facility] [address] [facility] [id number], [place] [address] 2546 Dec, [facility] [address], [place] [address]- 6519 Dec, [facility] [address] [id number] [place] [address]- 0073 Nov, [facility] [address] [facility] [id number] [place] [address]- 5391 Nov, Other chronic pain G89.29 and Pain in right wrist M25.531 [facility] [id number] [place] [address], [place] [address]- 4195 Oct, [facility] [address] [id number] [place] [address]- 5323 Sep, [facility] [address] [id number] [place] [address], [place] [address]- 3127 Aug, [facility] [address] [id number] [place] [address]- 1740 Jul, [facility] [id number] [place] [address], [place] [address]- 8908 Jun, [facility] [address] [id number] [place] [address]- 1471 May, [facility] [address] [id number] [place] [address]- 1397 Apr, [facility] [address] [id number] [place] [address]- 7537 March, [facility] [address] [facility] [id number] [place] [address]- 6371 March, Wrist pain, right M25.531 and Prostate cancer C61 [facility] [address] [id number] [place] [address]- 7804 Jan, [facility] [address] [facility] [id number] [place] [address]- 5896 30 Dec, 2015 [facility] [address] [facility] [id number] [place] [address]- 5716 Dec, [facility] [address], [place] [address]- 4821 Dec, [facility] [id number] [place] [address] 98390- 7293 Dec, Arthritis M19.90 [facility] [id number] [place] [address] 443069- 4306 Nov, Arthritis M19.90 [facility] [id number] [place] [address] 757904- 8117 Oct, Arthritis M19.90 [facility] [id number] [place] [address] 303297- 2458 Sep, [facility] [id number] [place] [address] 96953- 9025 Sep, Arthritis 716.90 [facility] [id number] [place] [address] 20282- 4566 Jul, Arthritis 716.90 [facility] [id number] [place] [address] 36031- 6316 Jun, Arthritis 716.90 [facility] [id number] [place] [address] 02769- 1204 Jun, Wrist pain 719.43 [facility] [id number] [place] [address] 71531- 6324 May, Wrist pain 719.43 [facility] [id number] [place] [address] 44085- 4723 Apr, [facility] [id number] [place] [address] 89854- 7388 Apr, Wrist pain 719.43 and Headaches, 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
--- OUTSIDE RECORDS SUMMARY | 2018-10-31 08:04 | XMS REPORT ---
Author Author JET JUSTIN Organization [facility] Address [address] [place] [address] Care Team Providers Care Executive Director Sheltered Workshop Name Role Phone NHAN JET Unavailable PROBLEMS Type Condition ICD9-CM Code OVW66-QX Code Onset Dates Condition Status SNOMED Code Problem Arthritis M19.90 Active 2981844 Problem Other chronic pain G89.29 Active 66945581 ALLERGIES No Known Allergies ENCOUNTERS Encounter Location Date Diagnosis [facility] [id number] [place] [address] 83135- 9515 Jul, Other chronic pain G89.29 [facility] [id number] [place] [address] 73962- 7947 Jul, Other chronic pain G89.29 and Arthritis M19.90 [facility] [id number] [place] [address] 84795- 3029 Jun, Arthritis M19.90 [facility] [id number] [place] [address] 22950- 3226 May, [facility] [id number] [place] [address] 80279- 4459 Jan, Other chronic pain G89.29 [facility] [id number] [place] [address] 77789- 0012 Dec, Other chronic pain G89.29 [facility] [id number] [place] [address] 72490- 2971 Dec, Other chronic pain G89.29 [facility] [id number] [place] [address] 61911- 8511 Nov, Other chronic pain G89.29 [facility] [id number] [place] [address] 93387- 2301 Oct, Other chronic pain G89.29 [facility] [address] [facility] [id number], [place] [address]- 9515 Sep, Other chronic pain G89.29 [facility] [address] [facility] [id number], [place] [address]- 1756 Aug, Other chronic pain G89.29 [facility] [id number] [address]- 2296 Jul, Other chronic pain G89.29 [facility] [address] [facility] [id number], [place] [address]- 3286 05 Jul, 2017 Other chronic pain G89.29 [facility] [id number] [address]- 2226 Jun, Other chronic pain G89.29 [facility] [address] [address]- 7491 May, [facility] [id number], [place] [address]- 4467 Apr, [facility] [address], [place] [address]- 3227 Apr, [facility] [address], [place] [address]- 6236 March, [facility] [address], [place] [address]- 0977 Jan, [facility] [address] [facility] [id number], [place] [address]- 3586 Dec, [facility] [id number], [place] [address]- 3926 Dec, [facility] [address] [id number], [place] [address]- 8916 Nov, [facility] [id number], [place] [address]- 4166 02 Luis, 2017 Other chronic pain G89.29 and Pain in right wrist M25.531 [facility] [address] [id number] [place] [address]- 7929 13 Oct, 2016 [facility] [id number] [place] [address] 72800- 1886 Sep, [facility] [id number] [place] [address], [place] [address]- 6326 Aug, [facility] [id number] [place] [address] 61889- 1844 Jul, [facility] [id number] [place] [address], [place] [address]- 5127 Jun, [facility] [id number] [place] [address], [place] [address]- 1546 May, [facility] [id number] [place] [address] 74652- 8039 Apr, [facility] [id number] [address]- 3919 March, [facility] [id number] [place] [address] 50752- 4144 March, Wrist pain, right M25.531 and Prostate cancer C61 [facility] [address], [place] [address]- 3478 Jan, [facility] [address], [place] [address]- 7693 Dec, [facility] [address] [id number], [place] [address]- 9130 Dec, [facility] [id number] [place] [address] 30918- 2544 Dec, [facility] [address], [place] [address]- 2543 Dec, Arthritis M19.90 [facility] [id number] [place] [address] 15009- 5716 Nov, Arthritis M19.90 [facility] [id number] [place] [address] 10308- 5756 Oct, Arthritis M19.90 [facility] [id number] [place] [address] 52417- 4686 Sep, [place] [id number] [place] [address] 81313- 8376 Sep, Arthritis 716.90 [facility] [id number] [place] [address] 49484 2548 Jul, Arthritis 716.90 [place] [id number] [place] [address] 71274- 1876 Jun, Arthritis 716.90 [place] [id number] [place] [address] 12081- 0644 Jun, Wrist pain 719.43 [place] [id number] [place] [address] 72176- 6661 May, Wrist pain 719.43 [place] [id number] [place] [address] 97292- 0523 Apr, [place] [id number] [place] [address] 69755- 7198 Apr, Wrist pain 719.43 and Headaches, 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 GABINO Montero PLAN OF CARE VITAL SIGNS Height 70 in 2018-06-01 Weight 195 lbs 2018-06-01 Temperature 98 degrees Fahrenheit 2018-06-01 Heart Rate 73 bpm 2018-06-01 Respiratory Rate 20 2018-06-01 BMI 27.98 kg/m2 2018-06-01 Blood pressure systolic 120 mmHg 2018-06-01 Blood pressure diastolic 68 mmHg 2018-06-01 MEDICATIONS Medication Instructions Dosage Frequency Start Date End Date Duration Status Plavix 75 MG Orally Once a day 24h Active Simvastatin 40 mg 1 tablet in the evening 24h Active Proscar Active Tramadol HCl 50 mg Orally every 4 hrs 1 tablet as needed 4h Jun, 28 days Active RESULTS No Results PROCEDURES Procedure Date Ordered Result Body Site [facility] VISIT ESTABLISHED PATIENT Jun 01, 2018 INSTRUCTIONS MEDICATIONS ADMINISTERED No Known Medications MEDICAL (GENERAL) HISTORY Type Description Date Medical History hypertension Medical History mild stroke Medical History hyperlipidemia Medical History prostate cancer Surgical History wrist surgery Surgical History hernia repair Hospitalization History surgeries only Hospitalization History headache 11/2014
--- OUTSIDE RECORDS SUMMARY | 2018-10-31 08:04 | XMS REPORT ---
Author Author LORA JUSTIN Organization [facility] Address [address] [place] [address] Care Team Providers Care Phlebotomy Instructor Name Role Phone NHAN LORA Unavailable PROBLEMS Type Condition ICD9-CM Code PVT58-FO Code Onset Dates Condition Status SNOMED Code Problem Arthritis M19.90 Active 2364380 Problem Other chronic pain G89.29 Active 02837139 ALLERGIES No Information ENCOUNTERS Encounter Location Date Diagnosis [facility] [id number] [place] [address] 02426- 9998 Jul, Other chronic pain G89.29 [facility] [id number] [place] [address] 98635- 5980 Jul, Other chronic pain G89.29 and Arthritis M19.90 [facility] [id number] [place] [address] 21982- 2430 Jun, Arthritis M19.90 [facility] [id number] [place] [address] 71394- 8967 May, [facility] [id number] [place] [address] 57686- 2236 Jan, Other chronic pain G89.29 [facility] [id number] [place] [address] 51093- 2970 Dec, Other chronic pain G89.29 [facility] [id number] [place] [address] 00350- 5492 Dec, Other chronic pain G89.29 [facility] [id number] [place] [address] 57555- 7074 Nov, Other chronic pain G89.29 [facility] [id number] [place] [address] 72269- 2155 Oct, Other chronic pain G89.29 [facility] [address], [place] [address]- 0647 Sep, Other chronic pain G89.29 [facility] [address] [id number], [place] [address]- 1656 Aug, Other chronic pain G89.29 [facility] [address] [place] [address] 243602- 2659 Jul, Other chronic pain G89.29 [facility] [address] [id number]- 9128 05 Jul, 2017 Other chronic pain G89.29 [facility] [address] [place] [address] 36975- 4768 Jun, Other chronic pain G89.29 [facility] [address], [place] [address]- 1319 May, [facility] [address], [place] [address]- 1671 Apr, [facility] [id number] [place] [address] 76728- 3548 Apr, [facility] [address], [place] [address]- 5142 March, [facility] [address], [place] [address]- 2238 Jan, [facility] [address], [place] [address]- 3016 Dec, [facility] [address] [place] [address] 81288- 1266 Dec, [facility] [address]- 6369 Nov, [facility] [address], [place] [address]- 9826 02 Luis, 2017 Other chronic pain G89.29 and Pain in right wrist M25.531 [facility] [address] [id number] [address]- 5364 13 Oct, 2016 [facility] [address] [facility] [id number] [place] [address] 30214- 6065 Sep, [facility] [id number], [place] [address]- 5922 Aug, [facility] [address] [facility] [id number] [place] [address] 96530- 2369 13 Jul, 2016 [facility] [id number] [place] [address], [place] [address]- 5649 Jun, [facility] [id number] [place] [address] 79550- 2897 May, [facility] [id number] [place] [address] 94421- 4648 Apr, [facility] [id number], [place] [address]- 8566 March, [facility] [id number] [place] [address] 39876- 5798 March, Wrist pain, right M25.531 and Prostate cancer C61 [facility] [address], [place] [address]- 6212 Jan, [facility] [address], [place] [address]- 5103 Dec, [facility] [address] [id number], [place] [address]- 5968 Dec, [facility] [id number] [place] [address] 31606- 3492 Dec, [facility] [address] [id number], [place] [address]- 5582 Dec, Arthritis M19.90 [facility] [id number] [place] [address] 58133- 3606 Nov, Arthritis M19.90 [facility] [id number] [place] [address] 37280- 1556 Oct, Arthritis M19.90 [facility] [id number] [place] [address] 23227- 9896 Sep, [facility] [id number] [place] [address] 46238- 0866 Sep, Arthritis 716.90 [facility] [id number] [place] [address] 95392- 9850 Jul, Arthritis 716.90 [facility] [id number] [place] [address] 09993- 2008 Jun, Arthritis 716.90 [place] [id number] [place] [address] 47814- 9271 Jun, Wrist pain 719.43 [place] [id number] [place] [address] 86806- 8825 May, Wrist pain 719.43 [place] [id number] [place] [address] 20086- 6707 Apr, [facility] [id number] [place] [address] 87023- 4358 Apr, Wrist pain 719.43 and Headaches, 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
--- OUTSIDE RECORDS SUMMARY | 2018-10-31 08:05 | XMS REPORT ---
Author Author LORA JUSTIN Organization [facility] Address [address] [place] [address] Care Team Providers Care Director Telecommunications Name Role Phone NHAN LORA Unavailable PROBLEMS Type Condition ICD9-CM Code FWO67-WG Code Onset Dates Condition Status SNOMED Code Problem Other chronic pain G89.29 Active [id number] ALLERGIES No Information ENCOUNTERS Encounter Location Date Diagnosis [facility] [id number] [place] [address] 82216- 3535 Jan, Other chronic pain G89.29 [facility] [id number] [place] [address] 34947- 9294 Dec, Other chronic pain G89.29 [facility] [id number] [place] [address] 28321- 2238 Dec, Other chronic pain G89.29 [facility] [id number] [place] [address] 20663- 9724 Nov, Other chronic pain G89.29 [facility] [id number] [place] [address] 87146- 4146 Oct, Other chronic pain G89.29 [facility] [id number] [place] [address] 86279- 0414 Sep, Other chronic pain G89.29 [facility] [id number] [place] [address] 52902- 9118 Aug, Other chronic pain G89.29 [facility] [id number] [place] [address] 46629- 6257 Jul, Other chronic pain G89.29 [facility] [id number] [place] [address] 67346- 7950 05 Jul, 2017 Other chronic pain G89.29 [facility] [place] [facility] [address] [facility] [id number] [place] [address]- 2043 Jun, Other chronic pain G89.29 [facility] [address] [id number] [place] [address]- 5804 May, [facility] [address] [facility] [id number] [place] [address]- 6234 Apr, [facility] [address] [facility] [id number] [place] [address], [place] [address]- 6711 Apr, [facility] [address] [facility] [id number] [place] [address]- 1668 March, [facility] [address] [facility] [id number] [place] [address], [place] [address]- 4759 Jan, [facility] [id number] [place] [address] 93656- 0608 Dec, [facility] [address] [id number] [address]- 6066 Dec, [facility] [place] [facility] [id number] [place] [address] 93475- 5310 Nov, [facility] [address] [id number], [place] [address]- 0208 Nov, Other chronic pain G89.29 and Pain in right wrist M25.531 [facility] [address] [id number], [place] [address]- 8790 Oct, [facility] [address] [facility] [id number], [place] [address]- 0009 11 Sep, 2016 [facility] [address] [facility] [id number], [place] [address]- 0430 12 Aug, 2016 [facility] [address] [facility] [id number], [place] [address]- 5838 13 Jul, 2016 [facility] [address], [place] [address]- 5376 Jun, [facility] [address] [id number] [address]- 9856 May, [facility] [address] [id number] [place] [address]- 2546 Apr, [facility] [address] [address]- 2546 March, [facility] [id number] [place] [address] 14975- 2546 March, Wrist pain, right M25.531 and Prostate cancer C61 [facility] [id number] [place] [address], [place] [address]- 5136 Jan, [facility] [address] [address]- 4386 Dec, [facility] [id number] [place] [address], [place] [address]- 7936 Dec, [facility] [address] [place] [address]- 5696 Dec, [facility] [address] [address]- 4176 Dec, Arthritis M19.90 [facility] [address], [place] [address]- 2546 Nov, Arthritis M19.90 [facility] [address], [place] [address]- 2546 Oct, Arthritis M19.90 [facility] [address] [id number] [place] [address]- 2546 Sep, [facility] [address], [place] [address]- 2546 Sep, Arthritis 716.90 [facility] [address] [id number] [address]- 2546 Jul, Arthritis 716.90 [facility] [address], [place] [address]- 0691 Jun, Arthritis 716.90 [place] [facility] [id number] [place] [address] 64602- 4721 Jun, Wrist pain 719.43 [place] [id number] [place] [address] 43721- 0014 May, Wrist pain 719.43 [place] [id number] [place] [address] 11217- 7265 Apr, [facility] [facility] [id number] [place] [address] 23254- 8968 Apr, Wrist pain 719.43 and Headaches, 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 [id number] [place] [address] 60896- 1657 March, Wrist pain, right 719.43 IMMUNIZATIONS No [...]
--- OUTSIDE RECORDS SUMMARY | 2018-10-31 08:05 | XMS REPORT ---
Author Author LORA JUSTIN Organization [facility] Address [address] [place] [address] Care Team Providers Care Senior Software Qa Analyst Name Role Phone NHAN LORA Unavailable PROBLEMS Type Condition ICD9-CM Code HWL78-MI Code Onset Dates Condition Status SNOMED Code Problem Other chronic pain G89.29 Active [id number] ALLERGIES No Information ENCOUNTERS Encounter Location Date Diagnosis [facility] [id number] [place] [address] 08694- 0424 Jan, Other chronic pain G89.29 [facility] [id number] [place] [address] 11289- 3569 Dec, Other chronic pain G89.29 [facility] [id number] [place] [address] 28827- 8508 Dec, Other chronic pain G89.29 [facility] [id number] [place] [address] 83764- 9249 Nov, Other chronic pain G89.29 [facility] [id number] [place] [address] 52707- 1163 Oct, Other chronic pain G89.29 [facility] [id number] [place] [address] 61975- 7852 Sep, Other chronic pain G89.29 [facility] [id number] [place] [address] 69981- 7386 Aug, Other chronic pain G89.29 [facility] [id number] [place] [address] 39751- 1753 Jul, Other chronic pain G89.29 [facility] [id number] [place] [address] 82125- 9729 05 Jul, 2017 Other chronic pain G89.29 [facility] [address] [facility] [id number] [place] [address]- 5311 Jun, Other chronic pain G89.29 [facility] [address] [id number] [place] [address]- 0388 May, [facility] [address] [facility] [id number] [place] [address]- 8046 Apr, [facility] [address] [facility] [id number] [place] [address], [place] [address]- 1782 Apr, [facility] [address] [facility] [id number] [place] [address]- 9137 March, [facility] [address] [facility] [id number] [place] [address], [place] [address]- 9301 Jan, [facility] [id number] [place] [address] 84604- 9914 Dec, [facility] [address] [id number] [place] [address]- 0429 Dec, [facility] [id number] [place] [address] 16284- 3048 Nov, [facility] [address] [id number], [place] [address]- 1896 Nov, Other chronic pain G89.29 and Pain in right wrist M25.531 [facility] [address] [id number], [place] [address]- 1242 Oct, [facility] [address] [facility] [id number], [place] [address]- 5536 11 Sep, 2016 [facility] [address] [facility] [id number], [place] [address]- 2823 12 Aug, 2016 [facility] [address] [facility] [id number], [place] [address]- 1946 13 Jul, 2016 [facility] [address], [place] [address]- 0516 Jun, [facility] [address] [id number] [place] [address]- 9226 May, [facility] [address] [id number] [place] [address]- 2546 Apr, [facility] [id number] [place] [address]- 2546 March, [facility] [id number] [place] [address] 77206- 2546 March, Wrist pain, right M25.531 and Prostate cancer C61 [facility] [id number] [place] [address], [place] [address]- 9556 Jan, [facility] [id number] [place] [address]- 7916 Dec, [facility] [id number] [place] [address], [place] [address]- 8656 Dec, [facility] [id number] [place] [address]- 3826 Dec, [facility] [id number] [place] [address]- 4906 Dec, Arthritis M19.90 [facility] [address], [place] [address]- 2546 Nov, Arthritis M19.90 [facility] [address], [place] [address]- 2546 Oct, Arthritis M19.90 [facility] [address] [id number] [place] [address]- 2546 Sep, [facility] [address], [place] [address]- 2546 Sep, Arthritis 716.90 [facility] [address] [id number] [place] [address]- 2546 Jul, Arthritis 716.90 [facility] [address], [place] [address]- 2831 Jun, Arthritis 716.90 [place] [facility] [id number] [place] [address] 14886- 6411 Jun, Wrist pain 719.43 [place] [facility] [id number] [place] [address] 55579- 1327 May, Wrist pain 719.43 [place] [facility] [id number] [place] [address] 10044- 3604 Apr, [facility] [id number] [place] [address] 36775- 7412 Apr, Wrist pain 719.43 and Headaches, 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 [place] [facility] [id number] [place] [address] 68001- 7541 March, Wrist pain, right 719.43 IMMUNIZATIONS No [...]
--- OUTSIDE RECORDS SUMMARY | 2018-10-31 08:05 | XMS REPORT ---
Author Author LORA JUSTIN Organization [facility] Address [address] [place] [address] Care Team Providers Care Desk Assistant Name Role Phone NHAN LORA Unavailable PROBLEMS Type Condition ICD9-CM Code UHY00-WT Code Onset Dates Condition Status SNOMED Code Problem Arthritis M19.90 Active 4016090 Problem Other chronic pain G89.29 Active [id number] ALLERGIES No Information ENCOUNTERS Encounter Location Date Diagnosis [facility] [id number] [place] [address] 92175- 2281 Jun, Arthritis M19.90 [facility] [id number] [place] [address] 83530- 0778 May, [facility] [id number] [place] [address] 06791- 7050 Jan, Other chronic pain G89.29 [facility] [id number] [place] [address] 28129- 3775 Dec, Other chronic pain G89.29 [facility] [id number] [place] [address] 48540- 2559 Dec, Other chronic pain G89.29 [facility] [id number] [place] [address] 38123- 0740 Nov, Other chronic pain G89.29 [facility] [id number] [place] [address] 73842- 4539 Oct, Other chronic pain G89.29 [facility] [id number] [place] [address] 39283- 0153 Sep, Other chronic pain G89.29 [facility] [id number] [place] [address] 80704- 5103 Aug, Other chronic pain G89.29 [facility] [address] [facility] [id number] [place] [address]- 0337 Jul, Other chronic pain G89.29 [facility] [address] [facility] [id number], [place] [address]- 6800 05 Jul, 2017 Other chronic pain G89.29 [facility] [address] [facility] [id number], [place] [address]- 9114 Jun, Other chronic pain G89.29 [facility] [address] [id number] [place] [address]- 7802 May, [facility] [id number] [place] [address] 05747- 0923 Apr, [facility] [address] [id number], [place] [address]- 3373 Apr, [facility] [id number] [place] [address] 66284- 9685 March, [facility] [address] [id number], [place] [address]- 4603 Jan, [facility] [address], [place] [address]- 6422 Dec, [facility] [address], [place] [address]- 8086 Dec, [facility] [address], [place] [address]- 3138 Nov, [facility] [address] [id number], [place] [address]- 4962 Nov, Other chronic pain G89.29 and Pain in right wrist M25.531 [facility] [address] [id number]- 7117 Oct, [facility] [address] [id number], [place] [address]- 2129 Sep, [facility] [address] [place] [address]- 8456 12 Aug, 2016 [facility] [address] [place] [address]- 0956 13 Jul, 2016 [facility] [address] [place] [address]- 7626 Jun, [facility] [id number] [place] [address], [place] [address]- 6763 May, [facility] [address] [place] [address]- 8569 Apr, [facility] [id number] [place] [address], [place] [address]- 0504 March, [facility] [address] [place] [address], [place]- 4541 March, Wrist pain, right M25.531 and Prostate cancer C61 [facility] [address] [place] [address]- 7032 Jan, [facility] [address] [place] [address]- 9947 Dec, [facility] [address] [place] [address]- 9046 Dec, [facility] [address] [place] [address]- 8846 Dec, [facility] [address] [id number], [place] [address]- 5926 Dec, Arthritis M19.90 [facility] [address] [place] [address]- 8236 Nov, Arthritis M19.90 [facility] [address] [place] [address]- 6136 Oct, Arthritis M19.90 [facility] [address] [place] [address]- 1156 Sep, [facility] [address], [place] [address]- 8523 Sep, Arthritis 716.90 [facility] [id number] [place] [address] 233879- 3989 Jul, Arthritis 716.90 [facility] [id number] [place] [address] 96927- 8189 Jun, Arthritis 716.90 [place] [id number] [place] [address] 879096- 8445 Jun, Wrist pain 719.43 [place] [facility] [id number] [place] [address] 519372- 2378 May, Wrist pain 719.43 [place] [facility] [id number] [place] [address] 61708- 8010 Apr, [place] [facility] [id number] [place] [address] 66221- 0817 Apr, Wrist pain 719.43 and Headaches, 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 [place] [id number] [place] [address] 99252- 0827 March, Wrist pain, right 719.43 IMMUNIZATIONS No [...]
--- OUTSIDE RECORDS SUMMARY | 2018-10-31 08:06 | XMS REPORT ---
Author Author LORA JUSTIN Organization [facility] Address [address] [place] [address] Care Team Providers Care Plush Weaver Name Role Phone NHAN LORA Unavailable PROBLEMS Type Condition ICD9-CM Code GHY45-VT Code Onset Dates Condition Status SNOMED Code Problem Other chronic pain G89.29 Active [id number] ALLERGIES No Information ENCOUNTERS Encounter Location Date Diagnosis [facility] [id number] [place] [address] 87536- 3494 Jan, Other chronic pain G89.29 [facility] [id number] [place] [address] 21972- 4182 Dec, Other chronic pain G89.29 [facility] [id number] [place] [address] 52106- 3160 Dec, Other chronic pain G89.29 [facility] [id number] [place] [address] 36287- 8117 Nov, Other chronic pain G89.29 [facility] [id number] [place] [address] 64659- 5362 Oct, Other chronic pain G89.29 [facility] [id number] [place] [address] 47123- 0687 Sep, Other chronic pain G89.29 [facility] [id number] [place] [address] 93473- 3545 Aug, Other chronic pain G89.29 [facility] [id number] [place] [address] 36242- 8702 Jul, Other chronic pain G89.29 [facility] [id number] [place] [address] 20723- 5489 05 Jul, 2017 Other chronic pain G89.29 [facility] [address] [facility] [id number] [place] [address]- 1995 Jun, Other chronic pain G89.29 [facility] [address] [id number] [place] [address]- 3962 May, [facility] [address] [facility] [id number] [place] [address]- 8772 Apr, [facility] [address] [facility] [id number] [place] [address], [place] [address]- 6524 Apr, [facility] [address] [facility] [id number] [place] [address]- 0689 March, [facility] [address] [facility] [id number] [place] [address], [place] [address]- 6810 Jan, [facility] [id number] [place] [address] 76759- 7677 Dec, [facility] [address] [id number] [place] [address]- 8146 Dec, [facility] [id number] [place] [address] Nov, [facility] [address] [id number] [address] Nov, Other chronic pain G89.29 and Pain in right wrist M25.531 [facility] [address] [id number] [address] Oct, [facility] [address] [facility] [id number] [address] 11 Sep, 2016 [facility] [address] [facility] [id number], [place] [address] 12 Aug, 2016 [facility] [address] [facility] [id number], [place] [address] 13 Jul, 2016 [facility] [id number] [address] Jun, [facility] [id number] [place] [address] May, [facility] [id number] [place] [address] Apr, [facility] [id number] [place] [address] March, [facility] [id number] [place] [address]- [address]46 March, Wrist pain, right M25.531 and Prostate cancer C61 [facility] [id number] [place] [address], [place] [address]- [address] Jan, [facility] [id number] [place] [address] Dec, [facility] [id number] [place] [address], [place] [address]- 5316 Dec, [facility] [id number] [place] [address]- [address] Dec, [facility] [id number] [place] [address]- [address]26 Dec, Arthritis M19.90 [facility] [id number] [address] Nov, Arthritis M19.90 [facility] [id number] [address] Oct, Arthritis M19.90 [facility] [id number] [place] [address]- [address] Sep, [facility] [id number], [place] [address] Sep, Arthritis 716.90 [facility] [id number] [place] [address]- [address]46 Jul, Arthritis 716.90 [facility] [id number], [place] [address] Jun, Arthritis 716.[id number] [place] [address]- [address]36 Jun, Wrist pain 719.43 [id number] [place] [address]- 3731 May, Wrist pain 719.43 [place] [id number] [place] [address]- 7167 Apr, [place] [id number] [place] [address]66- 4685 Apr, Wrist pain 719.43 and Headaches, 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 [id number] [place] [address]- [address] March, Wrist pain, right 719.43 IMMUNIZATIONS No Known Immunizations SOCIAL HISTORY Never Assessed REASON FOR VISIT Controlled Med Refill 11/19/17 PLAN OF CARE VITAL SIGNS MEDICATIONS Medication [...]
--- OUTSIDE RECORDS SUMMARY | 2018-10-31 08:06 | XMS REPORT | Continuity of Care Document ---
Author Author [facility] Organization [facility] Address Unknown Phone Unavailable Allergies Active Description Code Type Severity Reaction Onset Reported/Identified Relationship to Patient Clinical Status Yes No Known Drug Allergies [id number] Drug Allergy Unknown N/A 11/23/2014 Medications There [...] ANTINEOPLASTIC RADIATION T 06/23/2016 CRISTOBAL MARTIN, ANDRÉS Jones Ot C61 MALIGNANT NEOPLASM OF PROSTATE 06/23/2016 CRISTOBAL MARTIN, ANDRÉS Jones Ot Z51.0 ENCOUNTER FOR ANTINEOPLASTIC RADIATION T 02/18/2018 JITENDRA RUBIO APRN Ot I10 ESSENTIAL (PRIMARY) HYPERTENSION 02/18/2018 JITENDRA RUBIO APRN Ot K08.89 OTHER SPECIFIED DISORDERS OF TEETH AND S 02/18/2018 JITENDRA RUBIO APRN Ot 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 02/18/2018 JITENDRA RUBIO APRN Ot Z86.73 PRSNL HX OF TIA (TIA), AND CEREB INFRC W 02/18/2018 JITENDRA RUBIO APRN Ot Z87.19 PERSONAL HISTORY OF OTHER DISEASES OF TH 02/18/2018 JITENDRA RUBIO APRN Ot I10 ESSENTIAL (PRIMARY) HYPERTENSION 02/18/2018 JITENDRA RUBIO BEEF BONER Ot K08.89 OTHER SPECIFIED DISORDERS OF TEETH AND S 02/18/2018 JITENDRA RUBIO APRN Ot R68.84 JAW PAIN 02/18/2018 JITENDRA RUBIO APRN Ot Z79.82 GROUP HOME (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 02/18/2018 JITENDAR RUBIO APRN Ot Z86.73 PRSNL HX OF [...] LOW 02/19/2018 FARRAH CARBALLO MD Ot 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 02/19/2018 FARRAH CARBALLO [...] PAIN 02/21/2018 JITENDRA RUBIO APRN Ot Z79.82 GROUP HOME (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 02/21/2018 JITENDRA RUBIO [...] LOW 02/21/2018 FARRAH CARBALLO MD Ot 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 02/21/2018 FARRAH CARBALLO MD Ot Z86.73 PRSNL HX OF TIA (TIA), AND CEREB INFRC W 02/21/2018 FARRAH CARBALLO MD Ot Z98.890 OTHER SPECIFIED POSTPROCEDURAL STATES 02/24/2018 JITENDRA RUBIO APRN Ot I10 ESSENTIAL (PRIMARY) HYPERTENSION 02/24/2018 JITENDRA RUBIO APRN Ot K08.89 OTHER SPECIFIED DISORDERS OF TEETH AND S 02/24/2018 JITENDRA RUBIO APRN Ot Z79.82 GROUP HOME (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 02/24/2018 JITENDRA RUBIO APRN Ot Z86.73 PRSNL HX OF TIA (TIA), AND CEREB INFRC W 02/24/2018 JITENDRA RUBIO APRN Ot Z87.19 PERSONAL HISTORY OF OTHER DISEASES OF 04/12/2018 FARRAH CARBALLO MD Ot I10 ESSENTIAL (PRIMARY) HYPERTENSION 04/12/2018 FARRAH CARBALLO MD Ot M25.512 PAIN IN LEFT SHOULDER 04/12/2018 FARRAH CARBALLO MD Ot R41.0 DISORIENTATION, UNSPECIFIED 04/12/2018 FARRAH CARBALLO MD Ot S42.402A UNSP FRACTURE OF LOWER END OF LEFT HUMER 04/12/2018 FARRAH CARBALLO MD Ot S92.352A DISP FX OF FIFTH METATARSAL BONE, LEFT F 04/12/2018 FARRAH CARBALLO MD Ot W19.XXXA UNSPECIFIED FALL, INITIAL ENCOUNTER 04/12/2018 FARRAH CARBALLO MD Ot 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 04/12/2018 FARRAH CARBALLO MD Ot Z86.73 PRSNL HX OF TIA (TIA), AND CEREB INFRC W 04/12/2018 FARRAH CARBALLO MD Ot Z87.19 PERSONAL HISTORY OF OTHER DISEASES OF 04/14/2018 FARRAH CARBALLO MD Ot I10 ESSENTIAL (PRIMARY) HYPERTENSION 04/14/2018 FARRAH CARBALLO MD Ot M25.512 PAIN IN LEFT SHOULDER 04/14/2018 FARRAH CARBALLO MD Ot R41.0 DISORIENTATION, UNSPECIFIED 04/14/2018 FARRAH CARBALLO MD Ot S42.402A UNSP FRACTURE OF LOWER END OF LEFT HUMER 04/14/2018 FARRAH CARBALLO MD Ot S92.352A DISP FX OF FIFTH METATARSAL BONE, LEFT F 04/14/2018 FARRAH CARBALLO MD Ot W19.XXXA UNSPECIFIED FALL, INITIAL ENCOUNTER 04/14/2018 FARRAH CARBALLO MD Ot 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 Results Test Result Range Complete blood count (CBC) with automated white blood cell (WBC) differential - 04/12/18 14:29 Blood leukocytes automated count (number/volume) 5.3 10*3/uL 4.3-11.0 Blood erythrocytes automated count (number/volume) 4.53 10*6/uL 4.35-5.85 Venous blood hemoglobin measurement (mass/volume) 14.7 g/dL 13.3-17.7 Blood hematocrit (volume fraction) 41 % 40-54 Automated erythrocyte mean corpuscular volume 91 [foz_us] 80-99 Automated erythrocyte mean corpuscular hemoglobin (mass per erythrocyte) 33 pg 25-34 Automated erythrocyte mean corpuscular hemoglobin concentration measurement ( mass/volume) 36 g/dL 32-36 Automated erythrocyte distribution width ratio 14.4 % 10.0-14.5 Automated blood platelet count (count/volume) 82 10*3/uL 130-400 Automated blood platelet mean volume measurement 11.1 [foz_us] 7.4-10.4 Automated blood neutrophils/100 leukocytes 66 % 42-75 Automated blood lymphocytes/100 leukocytes 14 % 12-44 Blood monocytes/100 leukocytes 20 % 0-12 Automated blood eosinophils/100 leukocytes 0 % 0-10 Automated blood basophils/100 leukocytes 0 % 0-10 Blood neutrophils automated count (number/volume) 3.5 10*3 1.8-7.8 Blood lymphocytes automated count (number/volume) 0.7 10*3 1.0-4.0 Blood monocytes automated count (number/volume) 1.1 10*3 0.0-1.0 Automated eosinophil count 0.0 10*3/uL 0.0-0.3 Automated blood basophil count (count/volume) 0.0 10*3/uL 0.0-0.1 Blood manual differential performed detection - 04/12/18 14:29 Blood monocytes/100 leukocytes 16 % NRG Manual blood segmented neutrophils/100 leukocytes 62 % NRG Blood band neutrophils/100 leukocytes 3 % NRG Manual blood lymphocytes/100 leukocytes 18 % NRG Manual eosinophils/100 leukocytes in nose 1 % NRG Manual blood basophils/100 leukocytes 0 % NRG Blood erythrocyte morphology finding identification NORMAL NR Comprehensive metabolic panel - 04/12/18 14:29 Serum or plasma sodium measurement (moles/volume) 137 mmol/L 135-145 Serum or plasma potassium measurement (moles/volume) 3.7 mmol/L 3.6-5.0 Serum or plasma chloride measurement (moles/volume) 99 mmol/L 98-107 Carbon dioxide 25 mmol/L 21-32 Serum or plasma anion gap determination (moles/volume) 13 mmol/L 5-14 Serum or plasma urea nitrogen measurement (mass/volume) 12 mg/dL 7-18 Serum or plasma creatinine measurement (mass/volume) 0.82 mg/dL 0.60-1.30 Serum or plasma urea nitrogen/creatinine mass ratio 15 NRG Serum or plasma creatinine measurement with calculation of estimated glomerular filtration rate > NRG Serum or plasma glucose measurement (mass/volume) 163 mg/dL 70-105 Serum or plasma calcium measurement (mass/volume) 9.9 mg/dL 8.5-10.1 Serum or plasma total bilirubin measurement (mass/volume) 1.5 mg/dL 0.1-1.0 Serum or plasma alkaline phosphatase measurement (enzymatic activity/volume) 85 U/L 40-136 Serum or plasma aspartate aminotransferase measurement (enzymatic activity/ volume) 56 U/L 5-34 Serum or plasma alanine aminotransferase measurement (enzymatic activity/volume ) 50 U/L 0-55 Serum or plasma protein measurement (mass/volume) 7.6 g/dL 6.4-8.2 Serum or plasma albumin measurement (mass/volume) 4.0 g/dL 3.2-4.5 Serum or plasma uric acid measurement (mass/volume) - 04/12/18 14:29 Serum or plasma uric acid measurement (mass/volume) 5.6 mg/dL 2.6-7.2 Magnesium - 04/12/18 14:29 Magnesium 1.8 mg/dL 1.8-2.4 Serum or plasma thyrotropin measurement by detection limit <=0.05 miu/l (units/ volume) - 04/12/18 14:29 Serum or plasma thyrotropin measurement by detection limit <=0.05 miu/l (units/ volume) 2.34 u[iU]/mL 0.35-4.94 Serum or plasma ethanol measurement (mass/volume) - 04/12/18 14:29 Serum or plasma ethanol measurement (mass/volume) < mg/dL <10 Complete urinalysis with reflex to culture - 04/12/18 15:59 Urine color determination YELLOW NRG Urine clarity determination CLEAR NRG Urine pH measurement by test strip 6.5 5-9 Specific gravity of urine by test strip 1.010 1.016- 1.022 Urine protein assay by test strip, semi-quantitative 3+ NEGATIVE Urine glucose detection by automated test strip 1+ NEGATIVE Erythrocytes detection in urine sediment by light microscopy 2+ NEGATIVE Urine ketones detection by automated test strip NEGATIVE NEGATIVE Urine nitrite detection by test strip NEGATIVE NEGATIVE Urine total bilirubin detection by test strip NEGATIVE NEGATIVE Urine urobilinogen measurement by automated test strip (mass/volume) NORMAL NORMAL Urine leukocyte esterase detection by dipstick 1+ NEGATIVE Automated urine sediment erythrocyte count by microscopy (number/high power field) NONE NRG Automated urine sediment leukocyte count by microscopy (number/high power field ) [HPF] NRG Bacteria detection in urine sediment by light microscopy NONE NRG Squamous epithelial cells detection in urine sediment by light microscopy 0-2 NRG Crystals detection in urine sediment by light microscopy NONE NRG Casts detection in urine sediment by light microscopy NONE NRG Mucus detection in urine sediment by light microscopy TRACE NRG Complete urinalysis with reflex to culture NO NRG PDM - TRAMADOL - 07/08/18 14:39 Prescribed Drug 1 Tramadol NRG COMMENT NRG Desmethyltramadol 3824 ng/mL <100 medMATCH Desmethyltram CONSISTENT NRG Tramadol 03870 ng/mL <100 medMATCH Tramadol CONSISTENT NRG Encounters ACCT No. Visit Date/Time Discharge Status Pt. Type Provider Facility Loc./Unit Complaint [id number] 04/12/2018 14:06:00 04/12/2018 16:28:00 DIS Emergency FARRAH CARBALLO MD [facility] ER PAIN ON LEFT SIDE, FREQ FALLS [id number] 02/19/2018 03:10:00 02/19/2018 03:48:00 DIS Emergency FARRAH CARBALLO MD [facility] ER DENTAL PAIN [id number] 02/18/2018 20:59:00 02/18/2018 21:18:00 DIS Emergency JITENDRA RUBIO APRN [facility] ER JAW PAIN [id number] 02/18/2018 10:02:00 02/18/2018 10:25:00 DIS Emergency JITENDRA RUBIO BEEF BONER [facility] ER DENTAL/RIGHT ARM PAIN [id number] 06/23/2016 00:10:00 06/23/2016 23:59:59 CLS Preadmit ANDRÉS JAIN MD [facility] ONC [id number] 04/14/2016 13:46:00 06/22/2016 00:01:00 DIS Outpatient ANDRÉS JAIN MD [facility] ONC [id number] 03/23/2016 13:46:00 03/23/2016 00:01:00 DIS Outpatient ANDRÉS JAIN MD [facility] ONC [id number] 11/26/2014 00:40:00 11/26/2014 12:14:00 DIS Inpatient JERROD MARTIN, [place] [facility] 4TH [id number] 11/23/2014 09:34:00 11/23/2014 12:20:00 DIS Emergency JITENDRA RUBIO BEEF BONER [facility] ER [id number] 02/07/2014 12:48:00 02/16/2014 13:25:00 DIS Outpatient CHERISE MARTIN, PAUL [place] [id number] 06/01/2018 12:00:00 06/01/2018 23:59:59 CLS Outpatient Shani Tobin [facility] [place] [id number] 07/08/2018 14:20:00 Document Registration
--- NOTE | 2018-10-31 08:35 | Pulmonary Consultation ---
History of Present Illness History of Present Illness Date of Consultation 10/31/18 08:30 Time Seen by Provider: 08:30 Date of Admission History of Present Illness 68yo presented to ED via EMS secondary to sudden onset of SOB around 0200. Spo2 was 79% on RA upon EMS arrival. PT started having flu like symptoms 2days prior to this event. Spo2 improved to 90% with NRB. Pt was given 125mg of solumedrol and a SVN tx. Pt did bite his tongue he noted to have blood in his mouth per EMS. No known seizure activity. While in the ED pt required BiPAP secondary to respiratory distress. Allergies and Home Medications Allergies Coded Allergies: No Known Drug Allergies (Unverified , 11/23/14) Home Medications Amoxicillin/Potassium Clav 1 Each Tablet, 875 MG PO BID WITH MEALS Prescribed by: ANNETTE CINTRON on 11/04/18 0916 Atorvastatin Calcium 80 Mg Tablet, 80 MG PO HS, (Reported) Biotin 1,000 Mcg Tablet, 1,000 MCG PO DAILY, (Reported) Clopidogrel Bisulfate 75 Mg Tablet, 75 MG PO DAILY, (Reported) Ginkgo Biloba 120 Mg Tablet, 120 MG PO DAILY, (Reported) Lisinopril/Hydrochlorothiazide 1 Each Tablet, 1 TAB PO DAILY, (Reported) LAST FILLED 07-06-18 #90 Loratadine 10 Mg Tablet, 10 MG PO DAILY PRN for ALLERGIES, (Reported) Multivitamin 1 Each Tablet, 1 TAB PO DAILY, (Reported) Propranolol HCl 10 Mg Tablet, 10 MG PO BID, (Reported) Tramadol HCl 50 Mg Tablet, 100 MG PO TID, (Reported) TAKES 2 (50MG) TABLETS [Super Beta Prostate] , 1 TAB PO DAILY, (Reported) Past Ptwntpv-Ujwawx-Dcdpdn Hx Past Med/Social Hx: Reviewed Nursing Past Med/Soc Hx Patient Social History Alcohol Use: Occasionally Uses Alcohol Beverage of Choice: Beer Recreational Drug Use: No Smoking Status: Never a Smoker 2nd Hand Smoke Exposure: No Recent Foreign Travel: No Contact w/Someone Who Travel: No Recent Infectious Disease Expo: No Recent Hopitalizations: No Physical Abuse: No Sexual Abuse: No Past Medical History Surgeries: Yes (HERNIA REPAIR) Orthopedic Respiratory: No Cardiac: Yes Hypertension Neurological: Yes TIA Reproductive Disorders: No Sexually Transmitted Disease: No HIV/AIDS: No Genitourinary: Yes Benign Prostatic Hyperpl Gastrointestinal: No Musculoskeletal: Yes Arthritis Endocrine: No Loss of Vision: Left Hearing Impairment: Denies Cancer: No Psychosocial: Yes (Alcohol dependence) Integumentary: No Blood Disorders: No Family Medical History Hypertension 19 FATHER Review of Systems Time Seen by Provider: 08:57 Sepsis Event Evaluation Height, Weight, BMI Height: 6'0" Weight: 225lbs. 0.0oz. 102.420122pr; BMI Method:Estimated Exam Exam Vital Signs Date Time Temp Pulse Resp B/P (MAP) Pulse Ox O2 Delivery O2 Flow Rate FiO2 10/31/18 08:25 69 20 131/69 (89) 100 NIV Bilevel 10/31/18 06:41 87 22 100 10/31/18 04:49 116 33 93 10/31/18 04:30 94 NIV Bilevel 10/31/18 04:26 101.5 115 40 143/91 (108) 94 NIV/Bilevel I & O 10/31/18 07:00 Intake Total 100 ml Balance 100 ml Height & Weight Height: 6'0" Weight: 225lbs. 0.0oz. 102.365726ib; BMI Method:Estimated General Appearance: WD/WN, Moderate Distress HEENT: PERRL/EOMI, Normal ENT Inspection, Other (oropharynx coated with blood. 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
[2018-10-31] MEDS ORDERED: PIPERACILLIN SODIUM/TAZOBACTAM 4.5 GM in NS (IVPB) 100 ML IV SCH (08:45)
[2018-10-31] MEDS ORDERED: NS IV 1000 ML 1,000 ML IV SCH (08:45)
[2018-10-31] MEDS ORDERED: ACETAMINOPHEN 500 MG TAB (TYLENOL) PO PRN (08:45)
[2018-10-31] MEDS ORDERED: ONDANSETRON 4 MG/2 ML (SDV) Z0FRAN IV PRN (08:45)
[2018-10-31] MEDS ORDERED: RT-ALBUTEROL/IPRATROPIUM 3 ML (DUONEB) VIAL INH PRN (09:00)
[2018-10-31 09:07] LABS: ABG OXYGEN SATURATION 99 % (94-100); ABG PCO2 46 MMHG (35-45); ABG PO2 128 MMHG (79-93); ABG TCO2 24.1 MMOL/L (21.0-31.0)
[2018-10-31 09:15] LABS: ABG PH 7.33 (7.37-7.43)
[2018-10-31 09:16] LABS: ALLENS TEST YES-POS; INSPIRED O2 60%; PATIENT TEMP 100.8; VENTILATOR YES
[2018-10-31] MEDS ORDERED: IOHEXOL 350 MG/ML 150 ML (OMNIPAQUE 350) VIAL IV ONE (09:30)
[2018-10-31] MEDS ORDERED: NS 100 ML (IVPB) BAG IV ONE (09:30)
[2018-10-31] MEDS ORDERED: RECEIVED CONTRAST (Hold Metformin) IV SCH (09:30)
[2018-10-31] MEDS: LACTATED RINGERS 1,000 ML IV SCH ×2 (09:42→16:50)
[2018-10-31] MEDS: methylPREDNISolone 40 MG/ML (Solu-MEDROL) VIAL IV SCH ×3 (09:42→21:15)
[2018-10-31] MEDS: RT-ALBUTEROL/IPRATROPIUM 3 ML (DUONEB) VIAL INH SCH ×4 (10:08→22:31)
--- NOTE | 2018-10-31 10:35 | Diagnostic Imaging Report ---
PROCEDURE: CT angiography of the chest with contrast. TECHNIQUE: Multiple contiguous axial images were obtained through the chest after uneventful bolus administration of intravenous contrast. 2D reconstructed CTA MIP acquisitions were also performed. INDICATION: New onset shortness of air. COMPARISON: CT chest from 04/12/2018. FINDINGS: Vasculature: No pulmonary emboli. No CT evidence of pulmonary hypertension or right ventricular strain. Thoracic aorta is normal in caliber. No aortic dissection or pseudoaneurysm. Heart and mediastinum: Visualized thyroid is normal. No supraclavicular, axillary, or intra-thoracic lymphadenopathy. 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 Heart is normal in size without pericardial effusion. Pleura: No pleural effusion or pneumothorax. Lungs and airway: No endoluminal lesion in the trachea or central bronchi. Multifocal airspace consolidations have developed in all five lobes but are most confluent in the bilateral lower lobe basilar segments. Air bronchograms are present. Patchy groundglass opacities are also present in the upper lobes. Calcified right upper lobe pulmonary granuloma is unchanged. Upper abdomen: Bilateral renal cysts are incompletely imaged and unchanged. Diffuse hepatic steatosis is persistent. Musculoskeletal: No concerning osseous lesion. IMPRESSION: 1. No pulmonary emboli or acute aortic syndrome. 2. Multifocal pneumonia is greatest in the bilateral lower lobes. Dictated by: Dictated on workstation # [id number]
[2018-10-31] MEDS ORDERED: PROP10TA8 PO (11:03)
[2018-10-31] MEDS ORDERED: MULT1TAB69 PO (11:03)
[2018-10-31] MEDS ORDERED: CLOP75TA28 PO (11:03)
[2018-10-31] MEDS ORDERED: ATOR80TA64 PO (11:03)
[2018-10-31] MEDS ORDERED: TRAM50TA2 PO (11:03)
[2018-10-31] MEDS ORDERED: SUPER BETA PROSTATE PO (11:03)
[2018-10-31] MEDS ORDERED: LORA10TA7 PO (11:03)
--- NOTE | 2018-10-31 11:07 | NUR ---
Pastoral Care Visit.
--- NOTE | 2018-10-31 11:50 | History & Physical-Hospitalist ---
History of Present Illness HPI/Chief Complaint Pt is a 68yoCM who presented to the ER due to acute onset shortness of breath. When I entered room he was asleep and nasal cannula had fallen off and he was satting 82%. He awoke easily and sats improved with reapplication of nasal cannula but he seemed somewhat confused throughout our conversation. He states that he fell and that's what brought him to the ER thought Er notes states he called EMS due to SOB. He denied any respiratory symptoms to me though there is sputum in a cup on the bed next to him. He is fixated on where he knows me from and answer very few other questions. Source: patient Date Seen 10/31/18 Time Seen by a Provider: 13:15 Attending Physician Annette Dillon MD PCP Julián Tobin MD Referring Physician Date of Admission Oct 31, 2018 at 08:00 Home Medications & Allergies Home Medications Reviewed patient Home Medication Reconciliation performed by pharmacy medication reconciliations health technician and/or nursing. Patients Allergies have been reviewed. Allergies Allergies Coded Allergies No Known Drug Allergies (Unverified11/23/14) Past Mmlamcz-Demjvm-Tvnzmj Hx Past Med/Social Hx: Reviewed Nursing Past Med/Soc Hx Patient Social History Alcohol Use: Occasionally Uses Alcohol Beverage of Choice: Beer Recreational Drug Use: No Smoking Status: Never a Smoker 2nd Hand Smoke Exposure: No Physical Abuse Screen: No Sexual Abuse: No Recent Foreign Travel: No Contact w/other who traveled: No Recent Hopitalizations: No Recent Infectious Disease Expo: No Seasonal Allergies Seasonal Allergies: No Past Medical History Surgeries: Orthopedic Cardiac: Hypertension Neurological: TIA Reproductive: No Sexually Transmitted Disease: No HIV/AIDS: No Genitourinary: Benign Prostatic Hyperpl Musculoskeletal: Arthritis Loss of Vision: Left Hearing Impairment: Denies History of Blood Disorders: No Family History Reviewed Nursing Family Hx Hypertension 19 FATHER Hypertension Review of Systems ROS-Unable to Obtain: limited by confusion Constitutional: see HPI EENTM: nose congestion Respiratory: phlegm, short of breath Physical Exam Physical Exam Vital Signs Vital Signs - First Documented 10/31/18 10/31/18 04:26 12:40 Temp 101.5 Pulse 115 Resp 40 B/P (MAP) 143/91 (108) Pulse Ox 94 O2 Delivery NIV/Bilevel FiO2 70 Capillary Refill : Less Than 3 Seconds Height, Weight, BMI Height: 6'0.00" Weight: 196lbs. 4.0oz. 89.929937zh; 26.6 BMI Method:Estimated General Appearance: No Apparent Distress, WD/WN HEENT: PERRL/EOMI, Moist Mucous Membranes Neck: Non Tender, Supple Respiratory: No Accessory Muscle Use, No Respiratory Distress, Wheezing Cardiovascular: Regular Rate, Rhythm, No Murmur Gastrointestinal: Normal Bowel Sounds, Non Tender, Soft Extremity: Normal Capillary Refill, No Calf Tenderness, No Pedal Edema Neurologic/Psychiatric: Alert, Normal Mood/Affect, Disoriented (oriented to self and place but not situation) Skin: Normal Color, Warm/Dry Results Results/Procedures Labs Laboratory Tests 11/01/18 03:27 11/02/18 03:00 Patient resulted labs reviewed. Imaging: Reviewed Imaging Report Assessment/Plan Admission Diagnosis Severe Sepsis Admission Status: Inpatient Order (span 2 midnights) Reason for Inpatient Admission: On BiPAP with respiratory fialure, needs IV abx, will take more than two midnights to stabilize for DC Diagnosis/Problems Diagnosis/Problems (1) Severe sepsis Status: Acute Assessment & Plan: Febrile with leukopenia and tachycardia lactic acidosis of 2.7 without hypotension CXR with bilateral pna Continue on Zosyn Cultures obtained in ED (2) Acute respiratory failure Status: Resolved Assessment & Plan: On BiPAP Pulm consulted, appreciate recs Qualifiers: Respiratory failure complication: hypoxia Qualified Codes: J96.01 - Acute respiratory failure with hypoxia Resolution Date/Time: 11/02/18 @ 08:31 (3) Hypertension Status: Acute Assessment & Plan: Low to normotensive at this time so will hold home meds Qualifiers: Hypertension type: essential hypertension Qualified Codes: I10 - Essential (primary) hypertension Clinical Quality Measures DVT/VTE Risk/Contraindication: Risk Factor Score Per Nursin RFS Level Per Nursing on Admit: 4+=Very High ANNETTE DILLON MD Oct 31, 2018 11:50
[2018-10-31] MEDS: PIPERACILLIN SODIUM/TAZOBACTAM 4.5 GM in NS (IVPB) 100 ML IV SCH ×2 (11:51→21:15)
[2018-10-31] MEDS ORDERED: LISI1TAB10 PO (12:59)
[2018-10-31] MEDS ORDERED: NFBIOT1000 PO (12:59)
[2018-10-31] MEDS ORDERED: GINK120T4 PO (12:59)
--- NOTE | 2018-10-31 13:13 | NUR ---
WENT OVER THE EXT MED HX WITH THE PATIENT AND HIS BOTTLES HE BROUGHT IN WITH HIM.
--- NOTE | 2018-10-31 16:46 | Pulmonary Progress Note ---
Subjective Time Seen by a Provider: 16:44 Subjective/Events-last exam Called to bedside secondary to worsening SOB and productive cough of blood tinged sputum. Sepsis Event Evaluation Height, Weight, BMI Height: 6'0.00" Weight: 196lbs. 4.0oz. 89.148610ec; 26.6 BMI Method:Estimated Focused Exam Lactate Level 10/31/18 04:54: Lactic Acid Level 2.75*H 10/31/18 06:55: Lactic Acid Level 1.38 10/31/18 09:00: Lactic Acid Level 1.69 Time of Focused Exam: 07:13 Exam Exam Vital Signs Date Time Temp Pulse Resp B/P (MAP) Pulse Ox O2 Delivery O2 Flow Rate FiO2 10/31/18 16:00 65 13 123/43 (69) 99 Vapotherm 70.00 40.00 10/31/18 15:18 99 Vapotherm 30.00 70 10/31/18 15:00 64 42 117/54 (75) 98 Vapotherm 70.00 40.00 10/31/18 14:00 68 16 109/49 (69) 97 Vapotherm 70.00 40.00 10/31/18 13:15 65 10/31/18 13:00 71 24 115/56 (75) 93 Vapotherm 70.00 40.00 10/31/18 12:40 93 Vapotherm 40.00 70 10/31/18 12:40 100.0 Vapotherm 70.00 40.00 10/31/18 12:00 91 38 143/81 (101) 95 Vapotherm 70.00 40.00 10/31/18 11:00 79 21 121/79 (93) 96 Vapotherm 70.00 40.00 10/31/18 10:30 89 25 144/77 (99) 94 Vapotherm 70.00 40.00 10/31/18 10:15 88 21 139/90 (106) 92 Vapotherm 70.00 40.00 10/31/18 10:10 Vapotherm 70.00 40.00 10/31/18 10:00 88 21 139/90 (106) 92 NIV Bilevel 60.00 10/31/18 09:45 71 20 106/60 (75) 98 NIV Bilevel 60.00 10/31/18 09:03 85 27 99 60.00 10/31/18 09:00 88 29 99 NIV Bilevel 60.00 10/31/18 08:56 86 10/31/18 08:45 90 10 144/101 (115) 98 NIV Bilevel 60.00 10/31/18 08:35 100.8 90 10 98 NIV Bilevel 60.00 10/31/18 08:35 99 NIV Bilevel 60.00 10/31/18 08:25 69 20 131/69 (89) 100 NIV Bilevel 10/31/18 06:41 87 22 100 10/31/18 04:49 116 33 93 10/31/18 04:30 94 NIV Bilevel 10/31/18 04:26 101.5 115 40 143/91 (108) 94 NIV/Bilevel I & O 10/31/18 07:00 Intake Total 100 ml Balance 100 ml Height & Weight Height: 6'0.00" Weight: 196lbs. 4.0oz. 89.374364xj; 26.6 BMI Method:Estimated General Appearance: WD/WN, Anxious, Mild Distress HEENT: PERRL/EOMI, Moist Mucous Membranes Neck: Non Tender, Supple Respiratory: No Respiratory Distress, Crackles, Decreased Breath Sounds, Respiratory Distress Cardiovascular: Regular Rate, Rhythm, No Murmur Capillary Refill: Less Than 3 Seconds Extremity: Normal Capillary Refill, No Calf Tenderness Neurologic/Psychiatric: Alert, Normal Mood/Affect, Disoriented (oriented to self and place but not situation) Skin: Normal Color, Warm/Dry Results Lab Laboratory Tests 10/31/18 04:35 10/31/18 04:54 Assessment/Plan Assessment/Plan Acute respiratory distress with hypoxia -Oxygen - with Vapotherm -Repeat stat CXR -Waddell cath if pt is agreeable -BiPAP PRN -Check ABG Pneumonia and acute bronchitis with sepsis -Pt is having copious amount of blood tinged sputum production -Continue Zosyn -Olson culture -Check urine strep/legionella Ag -SVNs -Solumedrol Anxiety pt was given Ativan in ED -Precedex as needed I discussed with patient possible need of intubation. He is agreeable to intubation if needed. I explained to him we need to have a low threshold for intubation. Pt is getting more SOB with conversational dyspnea. Will check a CXR and continue to follow close. Total time spent with pt not including this AM 's consult is 30min of ICU time. Critical Care: Critically Ill Patient Time spent with patient (mins): 30 DIANA PRINCE DO Oct 31, 2018 16:45
--- NOTE | 2018-10-31 17:05 | Diagnostic Imaging Report ---
INDICATION: Shortness of air. COMPARISON: Same day at 5:19 AM. FINDINGS: The heart is borderline in size. There is central vascular congestion. There is infiltrate in the right medial base which appears similar to the previous study. There is no pneumothorax or pleural fluid. There are chronic changes compatible with an old left AC separation. There are old right-sided rib fractures. IMPRESSION: Unchanged infiltrate in the right medial base. No pneumothorax or pleural fluid. No new abnormality compared to earlier today. Dictated by: Dictated on workstation # [id number]
[2018-10-31] MEDS ORDERED: DEXMEDETOMIDINE INJECTION 1,000 MCG in NS (IVPB) 250 ML IV SCH (17:45)
[2018-10-31] MEDS ORDERED: FLU QUADRIvalent (5+ YOA) 2018-2019 (AFLURIA) 0.5 ML IM ONE (18:15)
[2018-10-31] MEDS: DEXMEDETOMIDINE INJECTION 1,000 MCG in NS (IVPB) 240 ML IV SCH (22:51)
[2018-11-01] VITALS (25 sets, daily range): BP systolic 90–150; BP diastolic 46–106
[2018-11-01] MEDS: LACTATED RINGERS 1,000 ML IV SCH ×2 (01:17→07:58)
[2018-11-01] MEDS: RT-ALBUTEROL/IPRATROPIUM 3 ML (DUONEB) VIAL INH SCH ×6 (02:27→21:08)
[2018-11-01 03:56] LABS: BASOPHILS % (AUTO) 0 % (0-10); EOSINOPHILS % (AUTO) 0 % (0-10); HEMATOCRIT 33 % (40-54); HEMOGLOBIN 11.7 G/DL (13.3-17.7); LYMPHOCYTES # (AUTO) 0.4 X 10^3 (1.0-4.0); LYMPHOCYTES % (AUTO) 5 % (12-44); MEAN CORPUSCULAR HEMOGLOBIN 31 PG (25-34); MEAN CORPUSCULAR HGB CONC 35 G/DL (32-36); MEAN CORPUSCULAR VOLUME 87 FL (80-99); MEAN PLATELET VOLUME 11.3 FL (7.4-10.4); MONOCYTES # (AUTO) 0.6 X 10^3 (0.0-1.0); MONOCYTES % (AUTO) 8 % (0-12); NEUTROPHILS # (AUTO) 6.7 X 10^3 (1.8-7.8); NEUTROPHILS % (AUTO) 87 % (42-75); PLATELET COUNT 102 10^3/uL (130-400); RED CELL DISTRIBUTION WIDTH 13.7 % (10.0-14.5); WHITE BLOOD COUNT 7.7 10^3/uL (4.3-11.0)
[2018-11-01 04:24] LABS: ALANINE AMINOTRANSFERASE 22 U/L (0-55); ALBUMIN 3.5 GM/DL (3.2-4.5); ALKALINE PHOSPHATASE 37 U/L (40-136); BILIRUBIN,TOTAL 0.7 MG/DL (0.1-1.0); BUN/CREATININE RATIO 17; CALCIUM 8.8 MG/DL (8.5-10.1); CARBON DIOXIDE 21 MMOL/L (21-32); CHLORIDE 107 MMOL/L (98-107); GFR ESTIMATED > 60; GLUCOSE 264 MG/DL (70-105); MAGNESIUM 1.7 MG/DL (1.8-2.4); PHOSPHORUS 2.2 MG/DL (2.3-4.7); POTASSIUM 3.7 MMOL/L (3.6-5.0); SODIUM 142 MMOL/L (135-145); TOTAL PROTEIN 5.8 GM/DL (6.4-8.2)
[2018-11-01] MEDS: PIPERACILLIN SODIUM/TAZOBACTAM 4.5 GM in NS (IVPB) 100 ML IV SCH ×3 (04:34→18:33)
[2018-11-01] MEDS: methylPREDNISolone 40 MG/ML (Solu-MEDROL) VIAL IV SCH ×4 (04:34→20:35)
[2018-11-01 04:56] LABS: ABG BASE EXCESS 1.2 MMOL/L (-2.5-2.5); ABG OXYGEN SATURATION 100 % (94-100); ABG PCO2 38 MMHG (35-45); ABG PH 7.43 (7.37-7.43); ABG PO2 147 MMHG (79-93); ABG TCO2 26.4 MMOL/L (21.0-31.0)
[2018-11-01 04:57] LABS: ALLENS TEST POSITIVE; INSPIRED O2 50%; PATIENT TEMP 97.6; VENTILATOR NO
[2018-11-01 06:02] LABS: BAND NEUTROPHILS 1 %; LYMPHOCYTES % (MANUAL) 11 %; MONOCYTES % (MANUAL) 1 %; NEUTROPHILS % (MANUAL) 87 %
--- NOTE | 2018-11-01 07:07 | Pulmonary Progress Note ---
Subjective Time Seen by a Provider: 07:25 Subjective/Events-last exam Pt is doing better respiratory greene. Sepsis Event Evaluation Height, Weight, BMI Height: 6'0.00" Weight: 196lbs. 4.0oz. 89.307593lf; 26.6 BMI Method:Estimated Focused Exam Lactate Level 10/31/18 04:54: Lactic Acid Level 2.75*H 10/31/18 06:55: Lactic Acid Level 1.38 10/31/18 09:00: Lactic Acid Level 1.69 Time of Focused Exam: 07:13 Exam Exam Vital Signs Date Time Temp Pulse Resp B/P (MAP) Pulse Ox O2 Delivery O2 Flow Rate FiO2 11/01/18 06:00 64 20 116/69 (85) 99 Vapotherm 50.00 30.00 11/01/18 05:00 72 26 121/60 (80) 99 Vapotherm 50.00 30.00 11/01/18 04:00 97 Vapotherm 30.00 50 11/01/18 04:00 57 22 93/56 (68) 96 Vapotherm 50.00 30.00 11/01/18 03:00 76 25 95/54 (68) 97 Vapotherm 50.00 30.00 11/01/18 02:27 97 Vapotherm 30.00 50 11/01/18 02:12 Vapotherm 50.00 30.00 11/01/18 02:00 73 27 122/77 (92) 89 NIV Bilevel 50.00 11/01/18 01:30 NIV Bilevel 50.00 11/01/18 01:20 66 23 100 50.00 11/01/18 01:00 71 11/01/18 01:00 71 12 121/62 (81) 97 Vapotherm 60.00 30.00 11/01/18 00:00 94 Vapotherm 30.00 50 11/01/18 00:00 81 12 112/72 (85) 95 Vapotherm 60.00 30.00 10/31/18 23:00 90 24 105/86 (92) 96 Vapotherm 60.00 30.00 10/31/18 22:31 97 Vapotherm 30.00 60 10/31/18 22:00 100 17 134/77 (96) 93 Vapotherm 60.00 30.00 12/31/18 21:00 96 23 101/61 (74) 94 Vapotherm 70.00 30.00 10/31/18 20:00 90 12 133/64 (87) 97 Vapotherm 70.00 30.00 10/31/18 20:00 94 Vapotherm 30.00 70 10/31/18 19:00 86 10/31/18 19:00 92 17 131/58 (82) 91 Vapotherm 70.00 30.00 10/31/18 18:34 100 Vapotherm 30.00 70 10/31/18 17:40 69 21 117/49 (71) 100 Vapotherm 70.00 30.00 10/31/18 17:00 78 14 97 Vapotherm 70.00 40.00 10/31/18 16:20 93 Vapotherm 30.00 70 10/31/18 16:00 65 13 123/43 (69) 99 Vapotherm 70.00 40.00 10/31/18 15:18 99 Vapotherm 30.00 70 10/31/18 15:00 64 42 117/54 (75) 98 Vapotherm 70.00 40.00 10/31/18 14:00 68 16 109/49 (69) 97 Vapotherm 70.00 40.00 10/31/18 13:15 65 10/31/18 13:00 71 24 115/56 (75) 93 Vapotherm 70.00 40.00 10/31/18 12:40 93 Vapotherm 40.00 70 10/31/18 12:40 100.0 Vapotherm 70.00 40.00 10/31/18 12:00 91 38 143/81 (101) 95 Vapotherm 70.00 40.00 10/31/18 11:00 79 21 121/79 (93) 96 Vapotherm 70.00 40.00 10/31/18 10:30 89 25 144/77 (99) 94 Vapotherm 70.00 40.00 10/31/18 10:15 88 21 139/90 (106) 92 Vapotherm 70.00 40.00 10/31/18 10:10 Vapotherm 70.00 40.00 10/31/18 10:00 88 21 139/90 (106) 92 NIV Bilevel 60.00 10/31/18 09:45 71 20 106/60 (75) 98 NIV Bilevel 60.00 12/31/18 09:03 85 27 99 60.00 10/31/18 09:00 88 29 99 NIV Bilevel 60.00 10/31/18 08:56 86 10/31/18 08:45 90 10 144/101 (115) 98 NIV Bilevel 60.00 10/31/18 08:35 100.8 90 10 98 NIV Bilevel 60.00 10/31/18 08:35 99 NIV Bilevel 60.00 10/31/18 08:25 69 20 131/69 (89) 100 NIV Bilevel I & O 11/01/18 07:00 Intake Total 3680 ml Output Total 2000 ml Balance 1680 ml Height & Weight Height: 6'0.00" Weight: 196lbs. 4.0oz. 89.144603pm; 26.6 BMI Method:Estimated General Appearance: WD/WN, Anxious, Mild Distress HEENT: PERRL/EOMI, Moist Mucous Membranes Neck: Non Tender, Supple Respiratory: No Respiratory Distress, Crackles, Decreased Breath Sounds, Respiratory Distress Cardiovascular: Regular Rate, Rhythm, No Murmur Capillary Refill: Less Than 3 Seconds Extremity: Normal Capillary Refill, No Calf Tenderness Neurologic/Psychiatric: Alert, Normal Mood/Affect, Disoriented (oriented to self and place but not situation) Skin: Normal Color, Warm/Dry Results Lab Laboratory Tests 10/31/18 04:35 10/31/18 04:54 11/01/18 03:27 Assessment/Plan Assessment/Plan Acute respiratory distress with hypoxia -Oxygen - with Vapotherm -Waddell cath if pt is agreeable -BiPAP PRN Pneumonia and acute bronchitis with sepsis -Pt is having copious amount of blood tinged sputum production -Continue Zosyn -Olson culture -Check urine strep/legionella Ag -SVNs -Solumedrol Anxiety pt was given Ativan in ED Will make ICU Step down status. DIANA PRINCE DO Nov 01, 2018 07:07
[2018-11-01] MEDS ORDERED: POTASSIUM PHOSPHATE INJ 30 MM in NS (IVPB) 250 ML IV ONE (07:15)
[2018-11-01] MEDS ORDERED: LORATADINE (CLARITIN) 10 MG TAB PO PRN (07:45)
[2018-11-01] MEDS: MAGNESIUM 1 GM/100 ML IVPB 100 ML IV SCH ×3 (08:05→09:15)
--- NOTE | 2018-11-01 08:21 | Diagnostic Imaging Report ---
INDICATION: Respiratory failure. Comparison made with prior examination 10/31/2018. FINDINGS: There is cardiomegaly. There is some venous congestion. There are patchy bibasilar infiltrates. There is no pleural effusion or pneumothorax. Mediastinum is unremarkable. IMPRESSION: Patchy bibasilar infiltrates. Cardiomegaly and mild central pulmonary venous congestion. Dictated by: Dictated on workstation # [id number]
--- NOTE | 2018-11-01 08:45 | Progress Note-Hospitalist ---
Subjective HPI/CC On Admission Date Seen by Provider: Nov 01, 2018 Time Seen by Provider: 08:40 Pt is a 68yoCM who presented to the ER due to acute onset shortness of breath. When I entered room he was asleep and nasal cannula had fallen off and he was satting 82%. He awoke easily and sats improved with reapplication of nasal cannula but he seemed somewhat confused throughout our conversation. He states that he fell and that's what brought him to the ER thought Er notes states he called EMS due to SOB. He denied any respiratory symptoms to me though there is sputum in a cup on the bed next to him. He is fixated on where he knows me from and answer very few other questions. Subjective/Events-last exam Pt reports feeling much better. Mentation much improved from yesterday. Breathing is better but still somewhat short of breath. Focused Exam Lactate Level 10/31/18 04:54: Lactic Acid Level 2.75*H 10/31/18 06:55: Lactic Acid Level 1.38 10/31/18 09:00: Lactic Acid Level 1.69 Time of Focused Exam: 07:13 Objective Exam Vital Signs Vital Signs Date Time Temp Pulse Resp B/P (MAP) Pulse Ox O2 Delivery O2 Flow Rate FiO2 11/01/18 07:30 Vapotherm 40.00 30.00 11/01/18 07:05 100 50 11/01/18 07:00 61 25 110/51 (70) 11/01/18 04:00 97.5 Capillary Refill : Less Than 3 Seconds General Appearance: No Apparent Distress, WD/WN Respiratory: No Accessory Muscle Use, Crackles, Wheezing, Other (on vapotherm) Cardiovascular: Regular Rate, Rhythm, No Murmur Gastrointestinal: Normal Bowel Sounds, Non Tender, Soft Neurologic/Psychiatric: Alert, Oriented x3 Results/Procedures Lab Laboratory Tests 11/01/18 03:27 Patient resulted labs reviewed. Imaging: Reviewed Imaging Report Assessment/Plan Assessment and Plan Assess & Plan/Chief Complaint Severe Sepsis Critical Care Critical Care: Critically Ill Patient Diagnosis/Problems Diagnosis/Problems (1) Severe sepsis Status: Acute Assessment & Plan: Improving CXR with bilateral pna CTA shows pneumonia as well with no PE Await cultures (2) Acute respiratory failure Status: Acute Assessment & Plan: Now on vapotherm ABG improved Pulm consulted, appreciate recs Qualifiers: Respiratory failure complication: hypoxia Qualified Codes: J96.01 - Acute respiratory failure with hypoxia (3) Hypertension Status: Acute Assessment & Plan: Propanolol restarted and BP tolerating Trend Qualifiers: Hypertension type: essential hypertension Qualified Codes: I10 - Essential (primary) hypertension Clinical Quality Measures DVT/VTE Risk/Contraindication: Risk Factor Score Per Nursin RFS Level Per Nursing on Admit: 4+=Very High ANNETTE CINTRON MD Nov 01, 2018 08:45
[2018-11-01] MEDS: PROPRANOLOL 20 MG (INDERAL) TABLET PO SCH ×2 (09:12→20:35)
[2018-11-01] MEDS: CLOPIDOGREL 75 MG (PLAVIX) TABLET PO SCH (09:12)
--- NOTE | 2018-11-01 10:55 | Physical Therapy Evaluation ---
PT Evaluation-General Medical Diagnosis Admission Date Oct 31, 2018 at 08:00 Medical Diagnosis: severe sepsis/bibasilar pneumonia Onset Date: Oct 31, 2018 Therapy Diagnosis Therapy Diagnosis: debility Height/Weight Height (Feet): 6 Height (Inches): 0.00 Weight (Pounds): 196 Weight (Ounces): 4.0 Precautions Precautions/Isolations: Fall Prevention, Standard Precautions Weight Bear Status Right Lower Extremity: Right Weight Bearing/Tolerated Left Lower Extremity: Left Weight Bearing/Tolerated Referral Physician: Santana Reason for Referral: Evaluation/Treatment Medical History Pertinent Medical History: Alcoholism, HTN Current History EMS secondary to sudden onset SOA and decreased SAO2 Reviewed History: Yes Social History Home: Multilevel Current Living Status: Friend Entry Into Home: Stairs With Railing PT Steps Into Home: 5 PT Steps Inside Home: 17 Prior/Core FIM Prior Level of Function Therapy Code Descriptions/Definitions Functional [place] Measure: 0=Not Assessed/NA 4=Minimal Assistance 1=Total Assistance 5=Supervision or Setup 2=Maximal Assistance 6=Modified [place] 3=Moderate Assistance 7=Complete [place] Therapy Quality Codes: 6 Independent with activity with or without an assistive device 5 Patient requires set up or clean up by helper. Patient completes activity by themselves 4 Supervision or touching assist (CGA). [place] provide cues , steadying assist 3 The helper provides less than half the effort to complete the activity 2 The helper provides more than half the effort to complete the activity 1 Dependent. The helper does all the effort to complete an activity 7 Patient refused to complete or attempt activity 9 The patient did not perform the activity before the current illness or injury 88 Not attempted due to Medical conditions or safety concerns Functional Abilities and Goals: Independent: Patient completed the activities by him/herself, with or without an assistive device, with no assistance from a helper. Needed Some Help: Patient needed partial assistance from another person to complete activities. Dependent: A helper completed the activities for the patient. Unknown: Not Applicable: Bed Mobility: 7 Transfers (B,C,W/C) (FIM): 7 Gait: 7 Stairs: 7 Indoor Mobility (Ambulation): Independent Stairs: Independent Prior Devices Use: None PT Evaluation-Current Subjective Patient is very talkative but somewhat confused. Agrees to PT. Pain Numeric Pain Scale: 0-No Pain Location: No Pain Reported Objective Patient Orientation: Confused Problem Solving: Fair Attachments: Oxygen (vapotherm), IV ROM/Strength ROM Lower Extremities bilateral LE WFL Strength Lower Extremities bilateral LE 4+/5 grossly Integumentary/Posture Integumentary refer to nursing notes Bowel Incontinence: No Bladder Incontinence: No Posture WFL Neuromuscular (Tone, Coordination, Reflexes) grossly intact Sensory Vision: Functional Hearing: Functional Sensation Right Lower Extremit: Intact Sensation Left Lower Extremity: Intact Transfers Therapy Code Descriptions/Definitions Functional [place] Measure: 0=Not Assessed/NA 4=Minimal Assistance 1=Total Assistance 5=Supervision or Setup 2=Maximal Assistance 6=Modified [place] 3=Moderate Assistance 7=Complete [place] Transfers (B, C, W/C) (FIM): 5 Scootin Rollin Supine to/from Sit: 6 Sit to/from Stand: 5 SBA for safety only due to patient is slightly impulsive and multiple cords on patient Gait Mode of Locomotion: Walk Anticipated Mode of Locomotion: Walk Gait (FIM): 1 Distance (FIM): 1=up to 49 ft Distance: 5' Gait Level of Assist: 5 Gait Assistive Device: None Comments/Gait Description limited by vapotherm Balance Sitting Static: Normal Sitting Dynamic: Normal Standing Static: Normal Standing Dynamic: Normal Assessment/Needs 68 y.o. male, will be seen short term by skilled PT to address pulmonary functional with functional mobility to ensure safe return to home at maximum LOF. 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 Goals PT Usp Goals Time Frame: Nov 12, 2018 Transfers (B,C,W/C) (FIM): 7 Gait (FIM): 7 Gait distance (FIM): 3=150 ft Gait Level of Assist: 7 Gait Assistive Device: None Stairs (FIM): 6 # of Steps: 12 Stairs Level Of Assist: 6 PT Plan Problem List Problem List: Safety, Other Treatment/Plan Treatment Plan: Continue Plan of Care Treatment Plan: Education, Functional Activity Rick, Functional Strength, Gait , Safety, Therapeutic Exercise, Transfers Treatment Duration: Nov 12, 2018 Frequency: 6 times per week Estimated Hrs Per Day: .25 hour per day Patient and/or Family Agrees t: Yes Discharge Recommendations Therapy D/C Recommendations: Home w/ Family Support Time/GCodes Time In: 1025 Time Out: 1040 Total Billed Treatment Time: 15 Total Billed Treatment 1 visit EVLowC 15 min G Codes Necessary: No LEE GAO PT Nov 01, 2018 10:55
[2018-11-01] MEDS: BENZONATATE 100 MG (TESSALON) CAPSULE PO PRN ×2 (13:43→22:34)
[2018-11-01] MEDS: DEXMEDETOMIDINE INJECTION 1,000 MCG in NS (IVPB) 240 ML IV SCH (18:19)
[2018-11-01] MEDS ORDERED: diphenhydrAMINE 25 MG TAB (BENADRYL) PO ONE ×2 (20:17→20:30)
[2018-11-02] VITALS (11 sets, daily range): BP systolic 95–186; BP diastolic 62–87
[2018-11-02] MEDS: RT-ALBUTEROL/IPRATROPIUM 3 ML (DUONEB) VIAL INH SCH ×7 (01:40→22:43)
[2018-11-02] MEDS: methylPREDNISolone 40 MG/ML (Solu-MEDROL) VIAL IV SCH ×4 (03:04→20:41)
[2018-11-02] MEDS: PIPERACILLIN SODIUM/TAZOBACTAM 4.5 GM in NS (IVPB) 100 ML IV SCH ×3 (03:04→19:46)
[2018-11-02 03:30] LABS: BASOPHILS % (AUTO) 0 % (0-10); EOSINOPHILS % (AUTO) 0 % (0-10); HEMATOCRIT 34 % (40-54); HEMOGLOBIN 11.9 G/DL (13.3-17.7); LYMPHOCYTES # (AUTO) 0.4 X 10^3 (1.0-4.0); LYMPHOCYTES % (AUTO) 5 % (12-44); MEAN CORPUSCULAR HEMOGLOBIN 31 PG (25-34); MEAN CORPUSCULAR HGB CONC 35 G/DL (32-36); MEAN CORPUSCULAR VOLUME 89 FL (80-99); MEAN PLATELET VOLUME 11.2 FL (7.4-10.4); MONOCYTES # (AUTO) 0.5 X 10^3 (0.0-1.0); MONOCYTES % (AUTO) 5 % (0-12); NEUTROPHILS % (AUTO) 90 % (42-75); PLATELET COUNT 135 10^3/uL (130-400); RED CELL DISTRIBUTION WIDTH 14.5 % (10.0-14.5); WHITE BLOOD COUNT 8.9 10^3/uL (4.3-11.0)
[2018-11-02 03:52] LABS: ALANINE AMINOTRANSFERASE 23 U/L (0-55); ALBUMIN 3.5 GM/DL (3.2-4.5); ALKALINE PHOSPHATASE 37 U/L (40-136); BILIRUBIN,TOTAL 0.6 MG/DL (0.1-1.0); BUN/CREATININE RATIO 25; CARBON DIOXIDE 23 MMOL/L (21-32); CHLORIDE 109 MMOL/L (98-107); CREATININE SERUM 0.85 MG/DL (0.60-1.30); GFR ESTIMATED > 60; GLUCOSE 218 MG/DL (70-105); MAGNESIUM 2.1 MG/DL (1.8-2.4); PHOSPHORUS 2.1 MG/DL (2.3-4.7); POTASSIUM 4.1 MMOL/L (3.6-5.0); SODIUM 144 MMOL/L (135-145); TOTAL PROTEIN 6.1 GM/DL (6.4-8.2)
--- NOTE | 2018-11-02 05:18 | Pulmonary Progress Note ---
Subjective Time Seen by a Provider: 05:18 Subjective/Events-last exam Pt is doing better. Still requiring high flow oxygen via Vapotherm currently. Sepsis Event Evaluation Height, Weight, BMI Height: 6'0.00" Weight: 196lbs. 4.0oz. 89.259446jh; 26.6 BMI Method:Estimated Focused Exam Lactate Level 10/31/18 04:54: Lactic Acid Level 2.75*H 10/31/18 06:55: Lactic Acid Level 1.38 10/31/18 09:00: Lactic Acid Level 1.69 Time of Focused Exam: 07:13 Exam Exam Vital Signs Date Time Temp Pulse Resp B/P (MAP) Pulse Ox O2 Delivery O2 Flow Rate FiO2 11/02/18 04:00 98.0 11/02/18 04:00 97 Vapotherm 15.00 40 11/02/18 04:00 64 26 141/62 (88) 94 Vapotherm 35.00 15.00 11/02/18 03:00 60 11 161/81 (107) 96 Vapotherm 35.00 15.00 11/02/18 02:00 84 14 95/74 (81) 92 Vapotherm 35.00 15.00 11/02/18 01:40 97 Vapotherm 15.00 40 11/02/18 01:00 72 19 149/79 (102) 92 Vapotherm 40.00 15.00 11/02/18 01:00 72 11/02/18 00:00 98.3 11/02/18 00:00 72 25 149/79 (102) 94 Vapotherm 40.00 15.00 11/02/18 00:00 97 Vapotherm 15.00 40 11/01/18 23:00 85 25 150/106 (121) 94 Vapotherm 40.00 15.00 11/01/18 22:00 86 28 144/75 (98) 95 Vapotherm 40.00 15.00 11/01/18 21:08 95 Vapotherm 15.00 40 11/01/18 21:00 76 27 134/67 (89) 96 Vapotherm 40.00 15.00 11/01/18 21:00 98.6 Vapotherm 40.00 15.00 11/01/18 20:00 97 Vapotherm 15.00 40 11/01/18 20:00 73 22 131/61 (84) 94 Vapotherm 40.00 15.00 11/01/18 19:00 88 27 139/78 (98) 96 Vapotherm 40.00 15.00 11/01/18 19:00 88 11/01/18 18:51 98 Vapotherm 15.00 40 11/01/18 18:10 81 36 148/74 (98) 94 Vapotherm 40.00 30.00 11/01/18 18:00 98.3 11/01/18 17:00 70 36 143/70 (94) 96 Vapotherm 40.00 30.00 11/01/18 16:00 85 26 133/77 (95) 91 Vapotherm 40.00 30.00 11/01/18 16:00 97 Vapotherm 15.00 30 11/01/18 15:00 71 24 147/77 (100) 97 Vapotherm 40.00 30.00 11/01/18 14:26 98 Vapotherm 20.00 50 11/01/18 14:00 80 22 133/67 (89) 97 Vapotherm 40.00 30.00 11/01/18 13:00 83 22 128/77 (94) 97 Vapotherm 40.00 30.00 11/01/18 12:52 84 11/01/18 12:00 97 Vapotherm 20.00 40 11/01/18 12:00 82 27 129/68 (88) 99 Vapotherm 40.00 30.00 11/01/18 12:00 98.6 11/01/18 11:00 85 35 121/67 (85) 96 Vapotherm 40.00 30.00 11/01/18 10:24 99 Vapotherm 25.00 50 11/01/18 10:00 79 36 124/64 (84) 98 Vapotherm 40.00 30.00 11/01/18 09:00 93 14 132/63 (86) 97 Vapotherm 40.00 30.00 11/01/18 08:00 97 Vapotherm 25.00 40 11/01/18 08:00 86 22 113/59 (77) 98 Vapotherm 40.00 30.00 11/01/18 07:30 Vapotherm 40.00 30.00 11/01/18 07:05 100 Vapotherm 30.00 50 11/01/18 07:00 61 25 110/51 (70) 98 Vapotherm 50.00 30.00 11/01/18 07:00 61 11/01/18 06:00 64 20 116/69 (85) 99 Vapotherm 50.00 30.00 I & O 11/02/18 07:00 Intake Total 1250 ml Output Total 1700 ml Balance -450 ml Height & Weight Height: 6'0.00" Weight: 196lbs. 4.0oz. 89.748493nu; 26.6 BMI Method:Estimated General Appearance: No Apparent Distress, WD/WN, Anxious HEENT: PERRL/EOMI, Moist Mucous Membranes Neck: Non Tender, Supple Respiratory: No Accessory Muscle Use, Crackles, Wheezing, Other (on vapotherm) Cardiovascular: Regular Rate, Rhythm, No Murmur Capillary Refill: Less Than 3 Seconds Extremity: Normal Capillary Refill, No Calf Tenderness Neurologic/Psychiatric: Alert, Oriented x3 Skin: Normal Color, Warm/Dry Results Lab Laboratory Tests 11/01/18 03:27 11/02/18 03:00 Assessment/Plan Assessment/Plan Acute respiratory distress with hypoxia -Oxygen - with Vapotherm -Waddell cath if pt is agreeable -BiPAP PRN Pneumonia and acute bronchitis with sepsis -Pt is having copious amount of blood tinged sputum production -Continue Zosyn -Olson culture -Check urine strep/legionella Ag -SVNs -Solumedrol Anxiety pt was given Ativan in ED Will transfer pt to 4th floor and continue to monitor close. DIANA PRINCE DO Nov 02, 2018 05:18
[2018-11-02] MEDS: PROPRANOLOL 20 MG (INDERAL) TABLET PO SCH ×2 (08:13→22:51)
[2018-11-02] MEDS: CLOPIDOGREL 75 MG (PLAVIX) TABLET PO SCH (08:13)
--- NOTE | 2018-11-02 08:16 | Diagnostic Imaging Report ---
Indication: Pneumonia. Comparison made with prior examination of 11/01/2018. Findings: There is cardiomegaly. There is some venous congestion. There are patchy bibasilar infiltrates. No pleural effusion or pneumothorax. Mediastinum is unremarkable. Impression: Patchy bibasilar infiltrates. Cardiomegaly and mild central pulmonary venous congestion. Dictated by: Dictated on workstation # [id number]
--- NOTE | 2018-11-02 08:31 | Progress Note-Hospitalist ---
Subjective HPI/CC On Admission Date Seen by Provider: Nov 02, 2018 Time Seen by Provider: 08:25 Pt is a 68yoCM who presented to the ER due to acute onset shortness of breath. When I entered room he was asleep and nasal cannula had fallen off and he was satting 82%. He awoke easily and sats improved with reapplication of nasal cannula but he seemed somewhat confused throughout our conversation. He states that he fell and that's what brought him to the ER thought Er notes states he called EMS due to SOB. He denied any respiratory symptoms to me though there is sputum in a cup on the bed next to him. He is fixated on where he knows me from and answer very few other questions. Subjective/Events-last exam Pt reports doing well this morning. SOB improving. Mentation improving. Focused Exam Lactate Level 10/31/18 04:54: Lactic Acid Level 2.75*H 10/31/18 06:55: Lactic Acid Level 1.38 10/31/18 09:00: Lactic Acid Level 1.69 Time of Focused Exam: 07:13 Objective Exam Vital Signs Vital Signs Date Time Temp Pulse Resp B/P (MAP) Pulse Ox O2 Delivery O2 Flow Rate FiO2 11/02/18 08:00 98.2 11/02/18 08:00 97 Vapotherm 10.00 35 11/02/18 06:00 63 36 148/85 (106) Capillary Refill : Less Than 3 Seconds General Appearance: No Apparent Distress, WD/WN Respiratory: Lungs Clear, No Accessory Muscle Use, No Respiratory Distress, Other (on Vapotherm) Cardiovascular: Regular Rate, Rhythm, No Murmur Neurologic/Psychiatric: Alert, Oriented x3, Normal Mood/Affect Results/Procedures Lab Laboratory Tests 11/02/18 03:00 Patient resulted labs reviewed. Imaging: Reviewed Imaging Report Assessment/Plan Assessment and Plan Assess & Plan/Chief Complaint Severe Sepsis Critical Care Critical Care: Critically Ill Patient Diagnosis/Problems Diagnosis/Problems (1) Severe sepsis Status: Acute Assessment & Plan: Improving CXR with bilateral pna CTA shows pneumonia as well with no PE Cultures show NGTD Await urine strep and legionella studies (2) Acute respiratory failure Status: Resolved Assessment & Plan: Wean off vapotherm Pulm consulted, appreciate recs Will transfer to the 4th floor Qualifiers: Respiratory failure complication: hypoxia Qualified Codes: J96.01 - Acute respiratory failure with hypoxia Resolution Date/Time: 11/02/18 @ 08:31 (3) Hypertension Status: Acute Assessment & Plan: Well controlled, trend Qualifiers: Hypertension type: essential hypertension Qualified Codes: I10 - Essential (primary) hypertension Clinical Quality Measures DVT/VTE Risk/Contraindication: Risk Factor Score Per Nursin RFS Level Per Nursing on Admit: 4+=Very High ANNETTE CINTRON MD Nov 02, 2018 08:31
--- NOTE | 2018-11-02 09:30 | NUR ---
Report recieved from Yaneli LLOYD at 0730. Pt. in room 406 at 0930 with brother at bedside. Pt. oriented to room and call light. No complaints of pain or signs of respiratory distress. Lung sounds are clear and diminished. Pt. currently on 7L high flow nasal cannula.
--- NOTE | 2018-11-02 09:34 | NUR ---
0735 REPORT CALLED TO SHENG LLOYD. 0925 PATIENT TRANSFERRED TO [facility] ON 7L [address] [address]. PERSONAL BELONGINGS IN HAND.
--- NOTE | 2018-11-02 14:59 | Physical Therapy Progress Note ---
Therapy Progress Note Patient refused therapy this afternoon. He is sitting in recliner using his laptop. He states he will do therapy in the morning but doesn't want to unplug his IV pole and take it with to ambulate. He is adamant about this even after explaining that it is a simple process to unplug it and push it with us. Patient seems unusually agitated toward his IV pole. SEBASTIAN ADHIKARI PT Nov 02, 2018 14:59
[2018-11-03] VITALS (7 sets, daily range): BP systolic 127–179; BP diastolic 71–95
[2018-11-03] MEDS: RT-ALBUTEROL/IPRATROPIUM 3 ML (DUONEB) VIAL INH SCH ×6 (02:12→21:29)
[2018-11-03] MEDS: methylPREDNISolone 40 MG/ML (Solu-MEDROL) VIAL IV SCH ×4 (03:43→20:28)
[2018-11-03] MEDS: PIPERACILLIN SODIUM/TAZOBACTAM 4.5 GM in NS (IVPB) 100 ML IV SCH ×3 (03:43→18:35)
[2018-11-03 05:02] LABS: BASOPHILS % (AUTO) 0 % (0-10); EOSINOPHILS % (AUTO) 0 % (0-10); HEMATOCRIT 35 % (40-54); HEMOGLOBIN 12.1 G/DL (13.3-17.7); LYMPHOCYTES # (AUTO) 0.4 X 10^3 (1.0-4.0); LYMPHOCYTES % (AUTO) 6 % (12-44); MEAN CORPUSCULAR HEMOGLOBIN 31 PG (25-34); MEAN CORPUSCULAR HGB CONC 35 G/DL (32-36); MEAN CORPUSCULAR VOLUME 89 FL (80-99); MEAN PLATELET VOLUME 10.8 FL (7.4-10.4); MONOCYTES # (AUTO) 0.3 X 10^3 (0.0-1.0); MONOCYTES % (AUTO) 4 % (0-12); NEUTROPHILS # (AUTO) 6.4 X 10^3 (1.8-7.8); NEUTROPHILS % (AUTO) 90 % (42-75); PLATELET COUNT 151 10^3/uL (130-400); RED BLOOD COUNT 3.92 10^6/uL (4.35-5.85); RED CELL DISTRIBUTION WIDTH 14.3 % (10.0-14.5); WHITE BLOOD COUNT 7.1 10^3/uL (4.3-11.0)
[2018-11-03 05:31] LABS: ALANINE AMINOTRANSFERASE 24 U/L (0-55); ALBUMIN 3.5 GM/DL (3.2-4.5); ALKALINE PHOSPHATASE 41 U/L (40-136); BILIRUBIN,TOTAL 0.6 MG/DL (0.1-1.0); BUN/CREATININE RATIO 34; CALCIUM 8.9 MG/DL (8.5-10.1); CARBON DIOXIDE 24 MMOL/L (21-32); CHLORIDE 105 MMOL/L (98-107); CREATININE SERUM 0.82 MG/DL (0.60-1.30); GFR ESTIMATED > 60; GLUCOSE 229 MG/DL (70-105); MAGNESIUM 2.2 MG/DL (1.8-2.4); PHOSPHORUS 3.6 MG/DL (2.3-4.7); POTASSIUM 4.2 MMOL/L (3.6-5.0); SODIUM 139 MMOL/L (135-145)
--- NOTE | 2018-11-03 08:05 | Diagnostic Imaging Report ---
INDICATION: Pneumonia. TECHNIQUE: Frontal view of the chest. COMPARISON: 11/02/2018 FINDINGS: There are perihilar and bibasilar patchy airspace opacities. The cardiac silhouette is normal in size. No pleural effusion or pneumothorax is seen. Overall aeration appears stable compared to prior exam. There is deformity likely from remote trauma seen at the left clavicle. Old rib fracture is noted. IMPRESSION: 1. Perihilar and bibasilar airspace opacities appear unchanged, may be due to edema or infection. No new consolidation is seen. Dictated by: Dictated on workstation # [id number]
[2018-11-03] MEDS: PROPRANOLOL 20 MG (INDERAL) TABLET PO SCH ×2 (09:01→20:30)
[2018-11-03] MEDS: CLOPIDOGREL 75 MG (PLAVIX) TABLET PO SCH (09:01)
--- NOTE | 2018-11-03 09:01 | Pulmonary Progress Note ---
Subjective Time Seen by a Provider: 08:59 Subjective/Events-last exam Pt is doing better. Sepsis Event Evaluation Height, Weight, BMI Height: 6'0.00" Weight: 198lbs. 3.2oz. 89.557553xv; 26.6 BMI Method:Estimated Focused Exam Lactate Level 10/31/18 09:00: Lactic Acid Level 1.69 Time of Focused Exam: 07:13 Exam Exam Vital Signs Date Time Temp Pulse Resp B/P (MAP) Pulse Ox O2 Delivery O2 Flow Rate FiO2 11/03/18 08:53 99.6 57 20 178/77 (110) 98 High Flow N/C 7.00 11/03/18 06:48 93 Nasal Cannula 4.00 11/03/18 04:40 98.8 65 18 149/78 (101) 98 High Flow N/C 7.00 11/03/18 02:13 98 Nasal Cannula 4.00 11/03/18 00:28 99.1 63 20 159/79 (105) 97 High Flow N/C 7.00 11/02/18 22:45 94 Nasal Cannula 4.00 11/02/18 21:00 Nasal Cannula 7.00 11/02/18 19:43 98.8 68 20 171/78 (109) 96 High Flow N/C 4.00 11/02/18 16:00 98.9 63 18 169/85 (113) 94 High Flow N/C 4.00 11/02/18 14:53 93 Nasal Cannula 4.00 11/02/18 11:35 97.5 60 20 177/81 (113) 95 High Flow N/C 4.00 11/02/18 10:52 95 Nasal Cannula 7.00 11/02/18 09:27 97.5 61 20 186/86 (119) 98 High Flow N/C 4.00 11/02/18 09:00 98.6 I & O 11/03/18 07:00 Intake Total 2140 ml Balance 2140 ml Height & Weight Height: 6'0.00" Weight: 198lbs. 3.2oz. 89.426147bn; 26.6 BMI Method:Estimated General Appearance: No Apparent Distress, WD/WN, Anxious HEENT: PERRL/EOMI, Moist Mucous Membranes Neck: Non Tender, Supple Respiratory: No Accessory Muscle Use, Crackles, Wheezing, Other (on vapotherm) Cardiovascular: Regular Rate, Rhythm, No Murmur Capillary Refill: Less Than 3 Seconds Extremity: Normal Capillary Refill, No Calf Tenderness Neurologic/Psychiatric: Alert, Oriented x3 Skin: Normal Color, Warm/Dry Results Lab Laboratory Tests 11/02/18 03:00 11/03/18 04:55 Assessment/Plan Assessment/Plan Acute respiratory distress with hypoxia -Oxygen - with Vapotherm - wean aggressively -BiPAP PRN Pneumonia and acute bronchitis with sepsis -Pt is having copious amount of blood tinged sputum production -Continue Zosyn -Olson culture neg thus far -Check urine strep/legionella Ag -SVNs -Solumedrol Anxiety pt was given Ativan in ED DIANA PRINCE DO Nov 03, 2018 09:01
--- NOTE | 2018-11-03 09:34 | Physical Therapy Daily Note ---
PT Daily Note-Current Subjective Patient is up in room independent. Agrees to PT. Pain Numeric Pain Scale: 0-No Pain Location: No Pain Reported Mental Status Patient Orientation: Normal For Age Attachments: Oxygen (4L HF NC) Transfers Therapy Code Descriptions/Definitions Functional [place] Measure: 0=Not Assessed/NA 4=Minimal Assistance 1=Total Assistance 5=Supervision or Setup 2=Maximal Assistance 6=Modified [place] 3=Moderate Assistance 7=Complete [place] Therapy Quality Codes: 6 Independent with activity with or without an assistive device 5 Patient requires set up or clean up by helper. Patient completes activity by themselves 4 Supervision or touching assist (CGA). [place] provide cues , steadying assist 3 The helper provides less than half the effort to complete the activity 2 The helper provides more than half the effort to complete the activity 1 Dependent. The helper does all the effort to complete an activity 7 Patient refused to complete or attempt activity 9 The patient did not perform the activity before the current illness or injury 88 Not attempted due to Medical conditions or safety concerns Weight Bearing Right Lower Extremity: Right Weight Bearing/Tolerated Left Lower Extremity: Left Weight Bearing/Tolerated Gait Training Gait (FIM): 7 Distance (FIM): 3=150 ft Distance: 800' Gait Level of Assist: 7 Gait Assistive Device: None steady Assessment Education with patient on use of O2 tanks to ambulate in hallway. Patient is currently at independent OF with all gross motor skills and does not require skilled therapy intervention. PT to dismiss patient from services. PT Deployment Manager Goals Alf Goals PT Deployment Manager Goals Time Frame: Nov 12, 2018 Transfers (B,C,W/C) (FIM): 7 Gait (FIM): 7 Gait distance (FIM): 3=150 ft Gait Level of Assist: 7 Gait Assistive Device: None Stairs (FIM): 6 # of Steps: 12 Stairs Level Of Assist: 6 PT Plan Treatment/Plan Treatment Plan: Discontinue PT, goals met Treatment Plan: Education, Functional Activity Rick, Functional Strength, Gait , Safety, Therapeutic Exercise, Transfers Treatment Duration: Nov 12, 2018 Frequency: 6 times per week Estimated Hrs Per Day: .25 hour per day Patient and/or Family Agrees t: Yes Time/GCodes Time In: 856 Time Out: 910 Total Billed Treatment Time: 14 Total Billed Treatment 1 visit FA 14 min LEE GAO PT Nov 03, 2018 09:34
[2018-11-03] MEDS ORDERED: lisINopril 20 MG (PRINIVIL) TABLET PO SCH (10:32)
[2018-11-03] MEDS: HYDROCHLOROTHIAZIDE 25 MG (HCTZ) TAB PO SCH (11:04)
--- NOTE | 2018-11-03 11:19 | Progress Note-Hospitalist ---
Subjective HPI/CC On Admission Date Seen by Provider: Nov 03, 2018 Time Seen by Provider: 11:14 Pt is a 68yoCM who presented to the ER due to acute onset shortness of breath. When I entered room he was asleep and nasal cannula had fallen off and he was satting 82%. He awoke easily and sats improved with reapplication of nasal cannula but he seemed somewhat confused throughout our conversation. He states that he fell and that's what brought him to the ER thought Er notes states he called EMS due to SOB. He denied any respiratory symptoms to me though there is sputum in a cup on the bed next to him. He is fixated on where he knows me from and answer very few other questions. Subjective/Events-last exam Pt reports feeling better since coughing up more sputum last night. Feels he can breath better now. Focused Exam Time of Focused Exam: 07:13 Objective Exam Vital Signs Vital Signs Date Time Temp Pulse Resp B/P (MAP) Pulse Ox O2 Delivery O2 Flow Rate FiO2 11/03/18 08:53 99.6 57 20 178/77 (110) 98 High Flow N/C 4.00 11/02/18 08:00 35 Capillary Refill : Less Than 3 Seconds General Appearance: No Apparent Distress, WD/WN Respiratory: Lungs Clear, No Respiratory Distress Cardiovascular: Regular Rate, Rhythm, No Murmur Gastrointestinal: Normal Bowel Sounds, Soft Neurologic/Psychiatric: Alert, Oriented x3 Results/Procedures Lab Laboratory Tests 11/03/18 04:55 Patient resulted labs reviewed. Imaging: Reviewed Imaging Report Assessment/Plan Assessment and Plan Assess & Plan/Chief Complaint Severe Sepsis Critical Care Critical Care: Critically Ill Patient Diagnosis/Problems Diagnosis/Problems (1) Severe sepsis Status: Resolved Assessment & Plan: Improving CXR with bilateral pna CTA shows pneumonia as well with no PE Cultures show NGTD Await urine strep and legionella studies (2) Acute respiratory failure Status: Resolved Assessment & Plan: Off vapotherm now Will need home oxygen study before discharge Pulm consulted, appreciate recs Qualifiers: Respiratory failure complication: hypoxia Qualified Codes: J96.01 - Acute respiratory failure with hypoxia Resolution Date/Time: 11/02/18 @ 08:31 (3) Hypertension Status: Acute Assessment & Plan: Elevated today Will resume home BP meds Qualifiers: Hypertension type: essential hypertension Qualified Codes: I10 - Essential (primary) hypertension Clinical Quality Measures DVT/VTE Risk/Contraindication: Risk Factor Score Per Nursin RFS Level Per Nursing on Admit: 4+=Very High ANNETTE CINTRON MD Nov 03, 2018 11:19
--- NOTE | 2018-11-03 12:07 | NUR ---
DR CINTRON NOTIFIED BY THIS RN THAT PT HR 52 AND BP 179/95. AWAITING URINE SAMPLE TO COMPLETE ACTIVE URINE TEST ORDERS. NO NEW ORDERS AT THIS TIME.
--- NOTE | 2018-11-03 14:15 | NUR ---
THIS RN PLACED HOME MEDICATION IN DIRECTOR OF SCIENTIFIC RESEARCH PT ROOM. PT HOME TRAMADOL COUNTED BY THIS RN, PT, AND MANI LLOYD, 161 TABLETS, MEDICATION LOCKED IN [facility] ROOM.
[2018-11-03] MEDS ORDERED: ATORVASTATIN 80 MG (LIPITOR) TABLET PO SCH (21:00)
[2018-11-04] MEDS: RT-ALBUTEROL/IPRATROPIUM 3 ML (DUONEB) VIAL INH SCH ×2 (02:50→06:30)
[2018-11-04] MEDS: methylPREDNISolone 40 MG/ML (Solu-MEDROL) VIAL IV SCH (03:39)
[2018-11-04] MEDS: PIPERACILLIN SODIUM/TAZOBACTAM 4.5 GM in NS (IVPB) 100 ML IV SCH (03:39)
[2018-11-04 04:24] VITALS: BP 169/80
[2018-11-04 04:35] LABS: BASOPHILS % (AUTO) 0 % (0-10); EOSINOPHILS % (AUTO) 0 % (0-10); HEMATOCRIT 34 % (40-54); HEMOGLOBIN 11.8 G/DL (13.3-17.7); LYMPHOCYTES # (AUTO) 0.6 X 10^3 (1.0-4.0); LYMPHOCYTES % (AUTO) 10 % (12-44); MEAN CORPUSCULAR HEMOGLOBIN 30 PG (25-34); MEAN CORPUSCULAR HGB CONC 34 G/DL (32-36); MEAN CORPUSCULAR VOLUME 88 FL (80-99); MEAN PLATELET VOLUME 10.4 FL (7.4-10.4); MONOCYTES # (AUTO) 0.5 X 10^3 (0.0-1.0); MONOCYTES % (AUTO) 8 % (0-12); NEUTROPHILS # (AUTO) 4.7 X 10^3 (1.8-7.8); NEUTROPHILS % (AUTO) 82 % (42-75); PLATELET COUNT 172 10^3/uL (130-400); RED BLOOD COUNT 3.88 10^6/uL (4.35-5.85); RED CELL DISTRIBUTION WIDTH 13.8 % (10.0-14.5); WHITE BLOOD COUNT 5.8 10^3/uL (4.3-11.0)
[2018-11-04 05:20] LABS: ALANINE AMINOTRANSFERASE 20 U/L (0-55); ALBUMIN 3.3 GM/DL (3.2-4.5); ALKALINE PHOSPHATASE 34 U/L (40-136); BILIRUBIN,TOTAL 0.6 MG/DL (0.1-1.0); BUN/CREATININE RATIO 38; CALCIUM 8.7 MG/DL (8.5-10.1); CARBON DIOXIDE 24 MMOL/L (21-32); CHLORIDE 103 MMOL/L (98-107); CREATININE SERUM 0.79 MG/DL (0.60-1.30); GFR ESTIMATED > 60; GLUCOSE 207 MG/DL (70-105); MAGNESIUM 2.2 MG/DL (1.8-2.4); PHOSPHORUS 3.9 MG/DL (2.3-4.7); SODIUM 136 MMOL/L (135-145); TOTAL PROTEIN 5.6 GM/DL (6.4-8.2)
--- NOTE | 2018-11-04 06:30 | NUR ---
SPO2 85% ON ROOM AIR @ REST. REPLACED O2 @ 3 LPM. SPO2 INCREASED TO 92%
--- NOTE | 2018-11-04 07:07 | Pulmonary Progress Note ---
Subjective Time Seen by a Provider: 07:07 Sepsis Event Evaluation Height, Weight, BMI Height: 6'0.00" Weight: 199lbs. 11.2oz. 90.189481du; 26.6 BMI Method:Estimated Focused Exam Time of Focused Exam: 07:13 Exam Exam Vital Signs Date Time Temp Pulse Resp B/P (MAP) Pulse Ox O2 Delivery O2 Flow Rate FiO2 11/04/18 06:30 85 Room Air 11/04/18 04:24 97.8 54 16 169/80 (109) 94 High Flow N/C 2.00 11/04/18 02:50 95 Nasal Cannula 3.00 11/03/18 23:21 97.5 60 16 153/81 (105) 92 High Flow N/C 2.00 11/03/18 21:29 90 Nasal Cannula 3.00 11/03/18 21:00 Nasal Cannula 4.00 11/03/18 19:40 97.7 80 20 127/78 (94) 93 High Flow N/C 2.00 11/03/18 16:05 98.2 81 20 157/71 (99) 97 High Flow N/C 2.00 11/03/18 14:57 90 Nasal Cannula 2.00 11/03/18 12:00 97.8 52 20 179/95 (123) 92 High Flow N/C 2.00 11/03/18 11:17 96 Nasal Cannula 4.00 11/03/18 08:53 99.6 57 20 178/77 (110) 98 High Flow N/C 4.00 11/03/18 08:00 Nasal Cannula 4.00 I & O 11/04/18 06:59 Intake Total 2980 ml Balance 2980 ml Height & Weight Height: 6'0.00" Weight: 199lbs. 11.2oz. 90.752378ld; 26.6 BMI Method:Estimated General Appearance: No Apparent Distress, WD/WN, Anxious HEENT: PERRL/EOMI, Moist Mucous Membranes Neck: Non Tender, Supple Respiratory: No Accessory Muscle Use, Crackles, Wheezing, Other (on vapotherm) Cardiovascular: Regular Rate, Rhythm, No Murmur Capillary Refill: Less Than 3 Seconds Extremity: Normal Capillary Refill, No Calf Tenderness Neurologic/Psychiatric: Alert, Oriented x3 Skin: Normal Color, Warm/Dry Results Lab Laboratory Tests 11/03/18 04:55 11/04/18 04:25 Assessment/Plan Assessment/Plan Acute respiratory distress with hypoxia -Oxygen Pneumonia and acute bronchitis with sepsis -PT will need out patient repeat CXR Sputum production has improved -Change Zosyn to Augmentin x 3 more days. -Olson culture neg thus far -Check urine strep/legionella Ag -SVNs -Solumedrol Anxiety pt was given Ativan in ED Pt is ok fro discharge from pulmonary standpoint. He will need oxygen at discharge his sp02 is 85% on RA. will have RT wall to establish ambulatory requirements. Will have pt f/u with me in 2-3 wks. DIANA PRINCE DO Nov 04, 2018 07:07
[2018-11-04 08:00] VITALS: BP 172/86
[2018-11-04] MEDS: PROPRANOLOL 20 MG (INDERAL) TABLET PO SCH (08:24)
[2018-11-04] MEDS: HYDROCHLOROTHIAZIDE 25 MG (HCTZ) TAB PO SCH (08:24)
[2018-11-04] MEDS: CLOPIDOGREL 75 MG (PLAVIX) TABLET PO SCH (08:24)
--- NOTE | 2018-11-04 08:35 | Diagnostic Imaging Report ---
Portable erect AP chest at 356h. INDICATION: Pneumonia The heart size is within normal limits and stable when compared to 11/03/2018. The perihilar markings on the right are somewhat prominent but no different than on the prior exam. The lungs are generally clear. There is no evidence for overt failure, pneumonia or for a significant pleural effusion. Mediastinum is not widened. The osseous structures are intact. Healed rib fractures are again seen on the right. There is also deformity of the distal left clavicle. Most likely this is a sequela of prior trauma. IMPRESSION: Stable chest. There has been no adverse change since the prior exam. Dictated by: Dictated on workstation # [id number]
--- NOTE | 2018-11-04 09:15 | Discharge Inst-Simple/Standard ---
Discharge Inst-Standard Discharge Medications New, Converted or Re-Newed RX: Transmitted to Pharmacy Patient Instructions/Follow Up Plan of Care/Instructions/FU: Please continue to take your medications as written. Please follow up with your PCP in next week and with Dr Bryant in the next 2 weeks to follow up this hospital stay. Activity as Tolerated: Yes Discharge Diet: No Restrictions Return to The Hospital For: Shortness of breath, confusion, chest pain, worsening fever, if you feel you are getting worse. Planned Outpatient Orders/Ref. Pneu Vac Indicated: Yes ANNETTE CINTRON MD Nov 04, 2018 09:15
[2018-11-04] MEDS ORDERED: AMOX1TAB12 PO (09:16)
--- NOTE | 2018-11-04 09:18 | Discharge Summary-Hospitalist ---
Diagnosis/Chief Complaint Date of Admission Oct 31, 2018 at 08:00 Date of Discharge Discharge Date: Nov 04, 2018 Admission Diagnosis Severe Sepsis Discharge Diagnosis (1) Severe sepsis Status: Resolved Assessment & Plan: Resolved CXR with bilateral pna CTA shows pneumonia as well with no PE Cultures show NGTD strep and legionella studies negative (2) Acute respiratory failure Status: Resolved Assessment & Plan: Requires 3lpm NC continuously Pulm consulted, appreciate recs (3) Hypertension Status: Acute Assessment & Plan: Improved with home BP meds Discharge Summary Procedures/Consulations Dr Bryant- Pulmeme Discharge Physical Exam Allergies: Coded Allergies: No Known Drug Allergies (Unverified , 11/23/14) Vitals & I&Os Vital Signs Date Time Temp Pulse Resp B/P (MAP) Pulse Ox O2 Delivery O2 Flow Rate FiO2 11/04/18 08:00 97.1 58 20 172/86 (114) 96 Room Air 11/04/18 04:24 2.00 11/02/18 08:00 35 General Appearance: No Apparent Distress, WD/WN Respiratory: Lungs Clear, No Respiratory Distress Cardiovascular: Regular Rate, Rhythm, No Murmur Neurologic/Psychiatric: Alert, Oriented x3 Hospital Course Pt was admitted for severe sepsis and acute respiratory failure due to bilateral pneumonia. He was admitted to the ICU on BiPAP and recovered well with antibiotics. He was transferred out of the ICU on day 2 of admission and continued to do well. He was transitioned to oral antibiotics to complete his course as an outpatient and was found to have a 3lpm oxygen requirement at baseline. He was discharged home in stable condition to follow up with his PCP and with Dr Bryant. I have also ordered pulmonary rehab consult to further assist with weaning from oxygen as an outpatient. Labs (last 24 hrs) Laboratory Tests 11/03/18 13:50: Urine Legionella pneumophilia Ag Negative, Streptococcus pneumoniae Antigen Negative 11/04/18 04:25: White Blood Count 5.8, Red Blood Count 3.88L, Hemoglobin 11.8L, Hematocrit 34L, Mean Corpuscular Volume 88, Mean Corpuscular Hemoglobin 30, Mean Corpuscular Hemoglobin Concent 34, Red Cell Distribution Width 13.8, Platelet Count 172, Mean Platelet Volume 10.4, Neutrophils (%) (Auto) 82H, Lymphocytes (%) (Auto) 10L, Monocytes (%) (Auto) 8, Eosinophils (%) (Auto) 0, Basophils (%) (Auto) 0, Neutrophils # (Auto) 4.7, Lymphocytes # (Auto) 0.6L, Monocytes # (Auto) 0.5, Eosinophils # (Auto) 0.0, Basophils # (Auto) 0.0, Sodium Level 136, Potassium Level 4.0, Chloride Level 103, Carbon Dioxide Level 24, Anion Gap 9, Blood Urea Nitrogen 30H, Creatinine 0.79, Estimat Glomerular Filtration Rate > 60, BUN/ Creatinine Ratio 38, Glucose Level 207H, Calcium Level 8.7, Corrected Calcium 9.3, Phosphorus Level 3.9, Magnesium Level 2.2, Total Bilirubin 0.6, Aspartate Amino Transf (AST/SGOT) 18, Alanine Aminotransferase (ALT/SGPT) 20, Alkaline Phosphatase 34L, B-Type Natriuretic Peptide 256.8H, Total Protein 5.6L, Albumin 3.3 Microbiology 10/31/18 Blood Culture - Preliminary, Resulted No growth 10/31/18 MRSA Screen - Final, Complete MRSA not isolated 10/31/18 Urine Culture - Final, Complete NO GROWTH Patient resulted labs reviewed. Pending Labs Laboratory Tests 11/04/18 04:25: White Blood Count 5.8, Red Blood Count 3.88, Hemoglobin 11.8, Hematocrit 34, Mean Corpuscular Volume 88, Mean Corpuscular Hemoglobin 30, Mean Corpuscular Hemoglobin Concent 34, Red Cell Distribution Width 13.8, Platelet Count 172, Mean Platelet Volume 10.4, Neutrophils (%) (Auto) 82, Lymphocytes (%) (Auto) 10 , Monocytes (%) (Auto) 8, Eosinophils (%) (Auto) 0, Basophils (%) (Auto) 0, Neutrophils # (Auto) 4.7, Lymphocytes # (Auto) 0.6, Monocytes # (Auto) 0.5, Eosinophils # (Auto) 0.0, Basophils # (Auto) 0.0, Sodium Level 136, Potassium Level 4.0, Chloride Level 103, Carbon Dioxide Level 24, Anion Gap 9, Blood Urea Nitrogen 30, Creatinine 0.79, Estimat Glomerular Filtration Rate > 60, BUN/ Creatinine Ratio 38, Glucose Level 207, Calcium Level 8.7, Corrected Calcium 9.3 , Phosphorus Level 3.9, Magnesium Level 2.2, Total Bilirubin 0.6, Aspartate Amino Transf (AST/SGOT) 18, Alanine Aminotransferase (ALT/SGPT) 20, Alkaline Phosphatase 34, B-Type Natriuretic Peptide 256.8, Total Protein 5.6, Albumin 3.3 Imaging: Reviewed Imaging Report Discussion & Recommendations Discharge Planning: >30 minutes discharge planning Discharge Home Medications: Active Scripts Active Amox Tr-K Clv 875-125 mg Tab (Amoxicillin/Potassium Clav) 1 Each Tablet 875 Mg PO BID WITH MEALS Reported Biotin 1,000 Mcg Tablet 1,000 Mcg PO DAILY Ginkgo Biloba 120 Mg Tablet 120 Mg PO DAILY Lisinopril-Hctz 20-25 mg Tab (Lisinopril/Hydrochlorothiazide) 1 Each Tablet 1 Tab PO DAILY LAST FILLED 07-06-18 #90 [Super Beta Prostate] 1 Tab PO DAILY Clopidogrel (Clopidogrel Bisulfate) 75 Mg Tablet 75 Mg PO DAILY Propranolol HCl 10 Mg Tablet 10 Mg PO BID Lipitor (Atorvastatin Calcium) 80 Mg Tablet 80 Mg PO HS Tramadol HCl 50 Mg Tablet 100 Mg PO TID TAKES 2 (50MG) TABLETS Multivitamins (Multivitamin) 1 Each Tablet 1 Tab PO DAILY Loratadine 10 Mg Tablet 10 Mg PO DAILY PRN Instructions to patient/family Please see electronic discharge instructions given to patient. Clinical Quality Measures DVT/VTE Risk/Contraindication: Risk Factor Score Per Nursin RFS Level Per Nursing on Admit: 4+=Very High Problem Qualifiers (1) Acute respiratory failure: Respiratory failure complication: hypoxia Qualified Codes: J96.01 - Acute respiratory failure with hypoxia (2) Hypertension: Hypertension type: essential hypertension Qualified Codes: I10 - Essential ( primary) hypertension ANNETTE CINTRON MD Nov 04, 2018 09:18
--- NOTE | 2018-11-04 10:33 | NUR ---
Arrangements completed for pt to receive home oxygen. Pt signed choice form for [facility] to provide Home Oxygen,Faxed physician orders to DME and they will deliver portable for transport home
[2018-11-04] MEDS ORDERED: RT-ALBUTEROL/IPRATROPIUM 3 ML (DUONEB) VIAL INH SCH (14:00)
[2018-11-04] MEDS ORDERED: AUGMENTIN 875 MG TAB (AMOXICILLIN/CLAVULANATE) PO SCH (17:00)
== END 2018-11-04 12:35 | disposition home or self-care (01) | DRG 871 ==
LOC: EDUNIT# 04:23 → ER 04:24 → ICU 08:00 → 4TH 11-02 09:25
PROVIDERS: ADMIT Family Medicine; ATTEND Family Medicine
DX: A41.9 Sepsis, unspecified organism (principal); R65.20 Severe sepsis without septic shock; J18.9 Pneumonia, unspecified organism; J96.01 Acute respiratory failure with hypoxia; J20.9 Acute bronchitis, unspecified; S01.512A Laceration without foreign body of oral cavity, initial encounter; F41.9 Anxiety disorder, unspecified; I10 Essential (primary) hypertension; N40.0 Benign prostatic hyperplasia without lower urinary tract symptoms; M19.91 Primary osteoarthritis, unspecified site; F10.20 Alcohol dependence, uncomplicated; Z86.73 Personal history of transient ischemic attack (TIA), and cerebral infarction without residual deficits
CPT/HCPCS: 36415; 36600; 70450; 71045; 71275; 72125; 80053; 81000; 82805; 83605; 83735; 83880; 84100; 84484; 85007; 85025; 85027; 85610; 85730; 87040; 87070; 87081; 87088; 87205; 87449; 87804; 87899; 94640; 94660; 94664; 94760; 96361; 96365; 96375

== ENCOUNTER 2018-11-26 12:27 | Emergency (ER) | payer MEDICARE, OTHER ==
[~2018-11-26] VITALS: Ht 182.9 cm; Wt 83.9 kg
[~2018-11-26 12:27] MED LIST changes: +AMOX1TAB12 PO; +ATOR80TA64 PO; +CLOP75TA28 PO; +GINK120T4 PO; +LORA10TA7 PO; +MULT1TAB69 PO; +NFBIOT1000 PO; +PROP10TA8 PO; +SUPER BETA PROSTATE PO; +TRAM50TA2 PO
--- OUTSIDE RECORDS SUMMARY | 2018-11-26 12:35 | XMS REPORT | Continuity of Care Document ---
Author Author [facility] Organization [facility] Address Unknown Phone Unavailable Allergies Active Description Code Type Severity Reaction Onset Reported/Identified Relationship to Patient Clinical Status Yes No Known Drug Allergies [id number] Drug Allergy Unknown N/A 11/23/2014 Medications There [...] S 02/18/2018 JITENDRA RUBIO APRN Ot Z79.82 MANAGER PERIOPERATIVE (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 02/18/2018 JITENDRA RUBIO APRN Ot Z86.73 PRSNL HX OF TIA (TIA), AND CEREB INFRC W 02/18/2018 JITENDRA RUBIO APRN Ot Z87.19 PERSONAL HISTORY OF OTHER DISEASES OF TH 02/18/2018 JITENDRA RUBIO APRN Ot I10 ESSENTIAL (PRIMARY) HYPERTENSION 02/18/2018 JITENDRA RUBIO GIVER Ot K08.89 OTHER SPECIFIED DISORDERS OF TEETH AND S 02/18/2018 JITENDRA RUBIO APRN Ot R68.84 JAW PAIN 02/18/2018 JITENDRA RUBIO APRN Ot Z79.82 SENIOR LIVING (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 02/18/2018 JITENDRA RUBIO [...] LOW 02/19/2018 FARRAH CARBALLO MD Ot Z79.82 MANAGER PERIOPERATIVE (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 02/19/2018 FARRAH CARBALLO [...] PAIN 02/21/2018 JITENDRA RUBIO APRN Ot Z79.82 SENIOR LIVING (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 02/21/2018 JITENDRA RUBIO [...] LOW 02/21/2018 FARRAH CARBALLO MD Ot Z79.82 MANAGER PERIOPERATIVE (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 02/21/2018 FARRAH CARBALLO MD Ot Z86.73 PRSNL HX OF TIA (TIA), AND CEREB INFRC W 02/21/2018 FARRAH CARBALLO MD Ot Z98.890 OTHER SPECIFIED POSTPROCEDURAL STATES 02/24/2018 JITENDRA RUBIO APRN Ot I10 ESSENTIAL (PRIMARY) HYPERTENSION 02/24/2018 JITENDRA RUBIO APRN Ot K08.89 OTHER SPECIFIED DISORDERS OF TEETH AND S 02/24/2018 JITENDRA RUBIO APRN Ot Z79.82 SENIOR LIVING (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 02/24/2018 IJTENDRA RUBIO APRN Ot Z86.73 PRSNL HX OF [...] ENCOUNTER 04/12/2018 FARRAH CARBALLO MD Ot Z79.82 MANAGER PERIOPERATIVE (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 04/12/2018 FARRAH CARBALLO [...] ENCOUNTER 04/14/2018 FARRAH CARBALLO MD Ot Z79.82 MANAGER PERIOPERATIVE (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 04/14/2018 FARRAH CARBALLO MD Ot Z86.73 PRSNL HX OF TIA (TIA), AND CEREB INFRC W 04/14/2018 FARRAH CARBALLO MD Ot Z87.19 PERSONAL HISTORY OF OTHER DISEASES OF 11/03/2018 ANNETTE CINTRON MD Ot A41.9 SEPSIS, UNSPECIFIED ORGANISM 11/03/2018 ANNETTE CINTRON MD Ot F10.20 ALCOHOL DEPENDENCE, UNCOMPLICATED 11/03/2018 ANNETTE CINTRON MD Ot F41.9 ANXIETY DISORDER, UNSPECIFIED 11/03/2018 ANNETTE CINTRON MD Ot I10 ESSENTIAL (PRIMARY) HYPERTENSION 11/03/2018 ANNETTE CINTRON MD Ot J18.9 PNEUMONIA, UNSPECIFIED ORGANISM 11/03/2018 ANNETTE CINTRON MD Ot J20.9 ACUTE BRONCHITIS, UNSPECIFIED 11/03/2018 ANNETTE CINTRON MD Ot J96.01 ACUTE RESPIRATORY FAILURE WITH HYPOXIA 11/03/2018 ANNETTE CINTRON MD Ot J98.01 ACUTE BRONCHOSPASM 11/03/2018 ANNETTE CINTRON MD Ot M19.91 PRIMARY OSTEOARTHRITIS, UNSPECIFIED SITE 11/03/2018 ANNETTE CINTRON MD Ot N40.0 BENIGN PROSTATIC HYPERPLASIA WITHOUT LOW 11/03/2018 ANNETTE CINTRON MD Ot R65.20 SEVERE SEPSIS WITHOUT SEPTIC SHOCK 11/03/2018 ANNETTE CINTRON MD Ot S01.512A LACERATION WITHOUT FOREIGN BODY OF ORAL 11/03/2018 ANNETTE CINTRON MD Ot Z86.73 PRSNL HX OF TIA (TIA), AND CEREB INFRC W 11/04/2018 ANNETTE CINTRON MD Ot A41.9 SEPSIS, UNSPECIFIED ORGANISM 11/04/2018 ANNETTE CINTRON MD Ot F10.20 ALCOHOL DEPENDENCE, UNCOMPLICATED 11/04/2018 ANNETTE CINTRON MD Ot F41.9 ANXIETY DISORDER, UNSPECIFIED 11/04/2018 ANNETTE CINTRON MD Ot I10 ESSENTIAL (PRIMARY) HYPERTENSION 11/04/2018 ANNETTE CINTRON MD Ot J18.9 PNEUMONIA, UNSPECIFIED ORGANISM 11/04/2018 ANNETTE CINTRON MD Ot J20.9 ACUTE BRONCHITIS, UNSPECIFIED 11/04/2018 ANNETTE CINTRON MD Ot J96.01 ACUTE RESPIRATORY FAILURE WITH HYPOXIA 11/04/2018 ANNETTE ICNTRON MD Ot J98.01 ACUTE BRONCHOSPASM 11/04/2018 ANNETTE CINTRON MD, Ot M19.91 PRIMARY OSTEOARTHRITIS, UNSPECIFIED SITE 11/04/2018 ANNETTE CINTRON MD Ot N40.0 BENIGN PROSTATIC HYPERPLASIA WITHOUT LOW 11/04/2018 ANNETTE CINTRON MD Ot R65.20 SEVERE SEPSIS WITHOUT SEPTIC SHOCK 11/04/2018 ANNETTE CINTRON MD Ot S01.512A LACERATION WITHOUT FOREIGN BODY OF ORAL 11/04/2018 ANNETTE CINTRON MD Ot Z86.73 PRSNL HX OF TIA (TIA), AND CEREB INFRC W 11/04/2018 ANNETTE CINTRON MD Ot A41.9 SEPSIS, UNSPECIFIED ORGANISM 11/04/2018 ANNETTE CINTRON MD Ot F10.20 ALCOHOL DEPENDENCE, UNCOMPLICATED 11/04/2018 ANNETTE CINTRON MD, Ot F41.9 ANXIETY DISORDER, UNSPECIFIED 11/04/2018 ANNETTE CINTRON MD Ot I10 ESSENTIAL (PRIMARY) HYPERTENSION 11/04/2018 ANENTTE CINTRON MD Ot J18.9 PNEUMONIA, UNSPECIFIED ORGANISM 11/04/2018 ANNETTE CINTRON MD Ot J20.9 ACUTE BRONCHITIS, UNSPECIFIED 11/04/2018 ANNETTE CINTRON MD Ot J96.01 ACUTE RESPIRATORY FAILURE WITH HYPOXIA 11/04/2018 ANNETTE CINTRON MD Ot J98.01 ACUTE BRONCHOSPASM 11/04/2018 ANNETTE CINTRON MD Ot M19.91 PRIMARY OSTEOARTHRITIS, UNSPECIFIED SITE 11/04/2018 ANNETTE CINTRON MD Ot N40.0 BENIGN PROSTATIC HYPERPLASIA WITHOUT LOW 11/04/2018 ANNETTE CINTRON MD Ot R65.20 SEVERE SEPSIS WITHOUT SEPTIC SHOCK 11/04/2018 ANNETTE CINTRON MD Ot S01.512A LACERATION WITHOUT FOREIGN BODY OF ORAL 11/04/2018 ANNETTE CINTRON MD Ot Z86.73 PRSNL HX OF TIA (TIA), AND CEREB INFRC W Procedures There is no data. Results Test [...] NRG Blood erythrocyte morphology finding identification NORMAL [facility] Comprehensive metabolic panel - 04/12/18 14:29 Serum [...] ng/mL <100 medMATCH Desmethyltram CONSISTENT NRG Tramadol 24714 ng/mL <100 medMATCH Tramadol CONSISTENT NRG Influenza virus A and B antigen detection - 10/31/18 04:35 FLU RESULT NEGATIVE FOR INFLUENZA A AND B ANTIGENS BY IA NRG PT panel in platelet poor plasma by coagulation assay - 10/31/18 04:35 Prothrombin time (PT) in platelet poor plasma by coagulation assay 13.5 s 12.2-14.7 INR in platelet poor plasma or blood by coagulation assay 1.0 0.8-1.4 Activated partial thromboplastin time (aPTT) in platelet poor plasma bycoagulation assay - 10/31/18 04:35 Activated partial thromboplastin time (aPTT) in platelet poor plasma bycoagulation assay 24 s 24-35 Comprehensive metabolic panel - 10/31/18 04:35 Serum or plasma sodium measurement (moles/volume) 136 mmol/L 135-145 Serum or plasma potassium measurement (moles/volume) 4.0 mmol/L 3.6-5.0 Serum or plasma chloride measurement (moles/volume) 99 mmol/L 98-107 Carbon dioxide 22 mmol/L 21-32 Serum or plasma anion gap determination (moles/volume) 15 mmol/L 5-14 Serum or plasma urea nitrogen measurement (mass/volume) 21 mg/dL 7-18 Serum or plasma creatinine measurement (mass/volume) 0.97 mg/dL 0.60-1.30 Serum or plasma urea nitrogen/creatinine mass ratio 22 NRG Serum or plasma creatinine measurement with calculation of estimated glomerular filtration rate > NRG Serum or plasma glucose measurement (mass/volume) 145 mg/dL 70-105 Serum or plasma calcium measurement (mass/volume) 9.8 mg/dL 8.5-10.1 Serum or plasma total bilirubin measurement (mass/volume) 0.9 mg/dL 0.1-1.0 Serum or plasma alkaline phosphatase measurement (enzymatic activity/volume) 83 U/L 40-136 Serum or plasma aspartate aminotransferase measurement (enzymatic activity/ volume) 28 U/L 5-34 Serum or plasma alanine aminotransferase measurement (enzymatic activity/volume ) 24 U/L 0-55 Serum or plasma protein measurement (mass/volume) 7.3 g/dL 6.4-8.2 Serum or plasma albumin measurement (mass/volume) 4.4 g/dL 3.2-4.5 CALCIUM CORRECTED 9.5 mg/dL 8.5-10.1 Complete blood count (CBC) with automated white blood cell (WBC) differential - 10/31/18 04:54 Blood leukocytes automated count (number/volume) 3.8 10*3/uL 4.3-11.0 Blood erythrocytes automated count (number/volume) 5.51 10*6/uL 4.35-5.85 Venous blood hemoglobin measurement (mass/volume) 17.2 g/dL 13.3-17.7 Blood hematocrit (volume fraction) 47 % 40-54 Automated erythrocyte mean corpuscular volume 85 [foz_us] 80-99 Automated erythrocyte mean corpuscular hemoglobin (mass per erythrocyte) 31 pg 25-34 Automated erythrocyte mean corpuscular hemoglobin concentration measurement ( mass/volume) 37 g/dL 32-36 Automated erythrocyte distribution width ratio 13.8 % 10.0-14.5 Automated blood platelet count (count/volume) 180 10*3/uL 130-400 Automated blood platelet mean volume measurement 10.7 [foz_us] 7.4-10.4 Automated blood neutrophils/100 leukocytes 72 % 42-75 Automated blood lymphocytes/100 leukocytes 18 % 12-44 Blood monocytes/100 leukocytes 10 % 0-12 Automated blood eosinophils/100 leukocytes 0 % 0-10 Automated blood basophils/100 leukocytes 0 % 0-10 Blood neutrophils automated count (number/volume) 2.7 10*3 1.8-7.8 Blood lymphocytes automated count (number/volume) 0.7 10*3 1.0-4.0 Blood monocytes automated count (number/volume) 0.4 10*3 0.0-1.0 Automated eosinophil count 0.0 10*3/uL 0.0-0.3 Automated blood basophil count (count/volume) 0.0 10*3/uL 0.0-0.1 Blood lactic acid measurement (moles/volume) - 10/31/18 04:54 Blood lactic acid measurement (moles/volume) 2.75 mmol/L 0.50-2.00 Serum or plasma lithium measurement (moles/volume) - 10/31/18 04:54 BNP level 27.3 pg/mL <100.0 Bacterial blood culture - 10/31/18 04:54 Bacterial blood culture NG NRG Complete urinalysis with reflex to culture - 10/31/18 05:03 Urine color determination YELLOW NRG Urine clarity determination CLEAR NRG Urine pH measurement by test strip 5 5-9 Specific gravity of urine by test strip 1.015 1.016- 1.022 Urine protein assay by test strip, semi-quantitative 1+ NEGATIVE Urine glucose detection by automated test strip 3+ NEGATIVE Erythrocytes detection in urine sediment by light microscopy NEGATIVE NEGATIVE Urine ketones detection by automated test strip NEGATIVE NEGATIVE Urine nitrite detection by test strip NEGATIVE NEGATIVE Urine total bilirubin detection by test strip NEGATIVE NEGATIVE Urine urobilinogen measurement by automated test strip (mass/volume) NORMAL NORMAL Urine leukocyte esterase detection by dipstick NEGATIVE NEGATIVE Automated urine sediment erythrocyte count by microscopy (number/high power field) NONE NRG Automated urine sediment leukocyte count by microscopy (number/high power field ) NONE NRG Bacteria detection in urine sediment by light microscopy NEGATIVE NRG Squamous epithelial cells detection in urine sediment by light microscopy 2-5 NRG Crystals detection in urine sediment by light microscopy NONE NRG Casts detection in urine sediment by light microscopy PRESENT NRG Mucus detection in urine sediment by light microscopy LARGE NRG Complete urinalysis with reflex to culture NO NRG Hyaline casts detection in urine sediment by light microscopy 2-5 NRG Bacterial urine culture - 10/31/18 05:03 Bacterial urine culture NG NRG Sputum Gram stain - 10/31/18 05:07 Sputum Gram stain 10-31-2018, 1705. NRG Bacterial sputum culture - 10/31/18 05:07 QUANTITY OF GROWTH . NRG Bacterial sputum culture USUAL RESP NRG Bacterial blood culture - 10/31/18 05:16 Bacterial blood culture NG NRG Serum or plasma lactate measurement (moles/volume) - 10/31/18 06:55 Serum or plasma lactate measurement (moles/volume) 1.38 mmol/L 0.50-2.00 Arterial blood gas measurement - 10/31/18 09:00 Blood pCO2 46 mm[Hg] 35-45 Blood pO2 128 mm[Hg] 79-93 Arterial blood bicarbonate measurement (moles/volume) 23 mmol/L 23-27 Arterial blood base excess by calculation -2.0 mmol/L - 2.5-2.5 Arterial blood oxygen saturation measurement 99 % 94-100 * Inhaled oxygen flow rate 60% NRG Arterial blood pH measurement with patient temperature correction 7.33 7.37-7.43 Arterial blood carbon dioxide, total measurement (moles/volume) 24.1 mmol/L 21.0-31.0 Body site LRAD NRG Assessment of wrist artery patency prior to arterial puncture YES- POS NRG Setting of ventilation mode YES NRG Measurement of body temperature 100.8 NRG Blood lactic acid measurement (moles/volume) - 10/31/18 09:00 Blood lactic acid measurement (moles/volume) 1.69 mmol/L 0.50-2.00 Methicillin resistant Staphylococcus aureus (MRSA) screening culture - 09:44 Methicillin resistant Staphylococcus aureus (MRSA) screening culture NEG NRG Serum or plasma troponin i.cardiac measurement (mass/volume) - 10/31/18 12:05 Serum or plasma troponin i.cardiac measurement (mass/volume) < ng/ mL <0.30 Serum or plasma troponin i.cardiac measurement (mass/volume) - 10/31/18 17:55 Serum or plasma troponin i.cardiac measurement (mass/volume) < ng/ mL <0.30 Serum or plasma troponin i.cardiac measurement (mass/volume) - 10/31/18 23:50 Serum or plasma troponin i.cardiac measurement (mass/volume) < ng/ mL <0.30 Complete blood count (CBC) with automated white blood cell (WBC) differential - 11/01/18 03:27 Blood leukocytes automated count (number/volume) 7.7 10*3/uL 4.3-11.0 Blood erythrocytes automated count (number/volume) 3.80 10*6/uL 4.35-5.85 Venous blood hemoglobin measurement (mass/volume) 11.7 g/dL 13.3-17.7 Blood hematocrit (volume fraction) 33 % 40-54 Automated erythrocyte mean corpuscular volume 87 [foz_us] 80-99 Automated erythrocyte mean corpuscular hemoglobin (mass per erythrocyte) 31 pg 25-34 Automated erythrocyte mean corpuscular hemoglobin concentration measurement ( mass/volume) 35 g/dL 32-36 Automated erythrocyte distribution width ratio 13.7 % 10.0-14.5 Automated blood platelet count (count/volume) 102 10*3/uL 130-400 Automated blood platelet mean volume measurement 11.3 [foz_us] 7.4-10.4 Automated blood neutrophils/100 leukocytes 87 % 42-75 Automated blood lymphocytes/100 leukocytes 5 % 12-44 Blood monocytes/100 leukocytes 8 % 0-12 Automated blood eosinophils/100 leukocytes 0 % 0-10 Automated blood basophils/100 leukocytes 0 % 0-10 Blood neutrophils automated count (number/volume) 6.7 10*3 1.8-7.8 Blood lymphocytes automated count (number/volume) 0.4 10*3 1.0-4.0 Blood monocytes automated count (number/volume) 0.6 10*3 0.0-1.0 Automated eosinophil count 0.0 10*3/uL 0.0-0.3 Automated blood basophil count (count/volume) 0.0 10*3/uL 0.0-0.1 Comprehensive metabolic panel - 11/01/18 03:27 Serum or plasma sodium measurement (moles/volume) 142 mmol/L 135-145 Serum or plasma potassium measurement (moles/volume) 3.7 mmol/L 3.6-5.0 Serum or plasma chloride measurement (moles/volume) 107 mmol/L 98-107 Carbon dioxide 21 mmol/L 21-32 Serum or plasma anion gap determination (moles/volume) 14 mmol/L 5-14 Serum or plasma urea nitrogen measurement (mass/volume) 15 mg/dL 7-18 Serum or plasma creatinine measurement (mass/volume) 0.90 mg/dL 0.60-1.30 Serum or plasma urea nitrogen/creatinine mass ratio 17 NRG Serum or plasma creatinine measurement with calculation of estimated glomerular filtration rate > NRG Serum or plasma glucose measurement (mass/volume) 264 mg/dL 70-105 Serum or plasma calcium measurement (mass/volume) 8.8 mg/dL 8.5-10.1 Serum or plasma total bilirubin measurement (mass/volume) 0.7 mg/dL 0.1-1.0 Serum or plasma alkaline phosphatase measurement (enzymatic activity/volume) 37 U/L 40-136 Serum or plasma aspartate aminotransferase measurement (enzymatic activity/ volume) 28 U/L 5-34 Serum or plasma alanine aminotransferase measurement (enzymatic activity/volume ) 22 U/L 0-55 Serum or plasma protein measurement (mass/volume) 5.8 g/dL 6.4-8.2 Serum or plasma albumin measurement (mass/volume) 3.5 g/dL 3.2-4.5 CALCIUM CORRECTED 9.2 mg/dL 8.5-10.1 Serum or plasma phosphate measurement (mass/volume) - 11/01/18 03:27 Serum or plasma phosphate measurement (mass/volume) 2.2 mg/dL 2.3-4.7 Magnesium - 11/01/18 03:27 Magnesium 1.7 mg/dL 1.8-2.4 Blood manual differential performed detection - 11/01/18 03:27 Blood monocytes/100 leukocytes 1 % NRG Manual blood segmented neutrophils/100 leukocytes 87 % NRG Blood band neutrophils/100 leukocytes 1 % NRG Manual blood lymphocytes/100 leukocytes 11 % NRG Arterial blood gas measurement - 11/01/18 04:44 Blood pCO2 38 mm[Hg] 35-45 Blood pO2 147 mm[Hg] 79-93 Arterial blood bicarbonate measurement (moles/volume) 25 mmol/L 23-27 Arterial blood base excess by calculation 1.2 mmol/L -2.5 -2.5 Arterial blood oxygen saturation measurement 100 % 94- 100 * Inhaled oxygen flow rate 50% NRG Arterial blood pH measurement with patient temperature correction 7.43 7.37-7.43 Arterial blood carbon dioxide, total measurement (moles/volume) 26.4 mmol/L 21.0-31.0 Body site RIGHT RADIAL NRG Assessment of wrist artery patency prior to arterial puncture POSITIVE NRG Setting of ventilation mode NO NRG Measurement of body temperature 97.6 NRG Complete blood count (CBC) with automated white blood cell (WBC) differential - 11/02/18 03:00 Blood leukocytes automated count (number/volume) 8.9 10*3/uL 4.3-11.0 Blood erythrocytes automated count (number/volume) 3.80 10*6/uL 4.35-5.85 Venous blood hemoglobin measurement (mass/volume) 11.9 g/dL 13.3-17.7 Blood hematocrit (volume fraction) 34 % 40-54 Automated erythrocyte mean corpuscular volume 89 [foz_us] 80-99 Automated erythrocyte mean corpuscular hemoglobin (mass per erythrocyte) 31 pg 25-34 Automated erythrocyte mean corpuscular hemoglobin concentration measurement ( mass/volume) 35 g/dL 32-36 Automated erythrocyte distribution width ratio 14.5 % 10.0-14.5 Automated blood platelet count (count/volume) 135 10*3/uL 130-400 Automated blood platelet mean volume measurement 11.2 [foz_us] 7.4-10.4 Automated blood neutrophils/100 leukocytes 90 % 42-75 Automated blood lymphocytes/100 leukocytes 5 % 12-44 Blood monocytes/100 leukocytes 5 % 0-12 Automated blood eosinophils/100 leukocytes 0 % 0-10 Automated blood basophils/100 leukocytes 0 % 0-10 Blood neutrophils automated count (number/volume) 8.0 10*3 1.8-7.8 Blood lymphocytes automated count (number/volume) 0.4 10*3 1.0-4.0 Blood monocytes automated count (number/volume) 0.5 10*3 0.0-1.0 Automated eosinophil count 0.0 10*3/uL 0.0-0.3 Automated blood basophil count (count/volume) 0.0 10*3/uL 0.0-0.1 Comprehensive metabolic panel - 11/02/18 03:00 Serum or plasma sodium measurement (moles/volume) 144 mmol/L 135-145 Serum or plasma potassium measurement (moles/volume) 4.1 mmol/L 3.6-5.0 Serum or plasma chloride measurement (moles/volume) 109 mmol/L 98-107 Carbon dioxide 23 mmol/L 21-32 Serum or plasma anion gap determination (moles/volume) 12 mmol/L 5-14 Serum or plasma urea nitrogen measurement (mass/volume) 21 mg/dL 7-18 Serum or plasma creatinine measurement (mass/volume) 0.85 mg/dL 0.60-1.30 Serum or plasma urea nitrogen/creatinine mass ratio 25 NRG Serum or plasma creatinine measurement with calculation of estimated glomerular filtration rate > NRG Serum or plasma glucose measurement (mass/volume) 218 mg/dL 70-105 Serum or plasma calcium measurement (mass/volume) 9.0 mg/dL 8.5-10.1 Serum or plasma total bilirubin measurement (mass/volume) 0.6 mg/dL 0.1-1.0 Serum or plasma alkaline phosphatase measurement (enzymatic activity/volume) 37 U/L 40-136 Serum or plasma aspartate aminotransferase measurement (enzymatic activity/ volume) 28 U/L 5-34 Serum or plasma alanine aminotransferase measurement (enzymatic activity/volume ) 23 U/L 0-55 Serum or plasma protein measurement (mass/volume) 6.1 g/dL 6.4-8.2 Serum or plasma albumin measurement (mass/volume) 3.5 g/dL 3.2-4.5 CALCIUM CORRECTED 9.4 mg/dL 8.5-10.1 Serum or plasma phosphate measurement (mass/volume) - 11/02/18 03:00 Serum or plasma phosphate measurement (mass/volume) 2.1 mg/dL 2.3-4.7 Magnesium - 11/02/18 03:00 Magnesium 2.1 mg/dL 1.8-2.4 Complete blood count (CBC) with automated white blood cell (WBC) differential - 11/03/18 04:55 Blood leukocytes automated count (number/volume) 7.1 10*3/uL 4.3-11.0 Blood erythrocytes automated count (number/volume) 3.92 10*6/uL 4.35-5.85 Venous blood hemoglobin measurement (mass/volume) 12.1 g/dL 13.3-17.7 Blood hematocrit (volume fraction) 35 % 40-54 Automated erythrocyte mean corpuscular volume 89 [foz_us] 80-99 Automated erythrocyte mean corpuscular hemoglobin (mass per erythrocyte) 31 pg 25-34 Automated erythrocyte mean corpuscular hemoglobin concentration measurement ( mass/volume) 35 g/dL 32-36 Automated erythrocyte distribution width ratio 14.3 % 10.0-14.5 Automated blood platelet count (count/volume) 151 10*3/uL 130-400 Automated blood platelet mean volume measurement 10.8 [foz_us] 7.4-10.4 Automated blood neutrophils/100 leukocytes 90 % 42-75 Automated blood lymphocytes/100 leukocytes 6 % 12-44 Blood monocytes/100 leukocytes 4 % 0-12 Automated blood eosinophils/100 leukocytes 0 % 0-10 Automated blood basophils/100 leukocytes 0 % 0-10 Blood neutrophils automated count (number/volume) 6.4 10*3 1.8-7.8 Blood lymphocytes automated count (number/volume) 0.4 10*3 1.0-4.0 Blood monocytes automated count (number/volume) 0.3 10*3 0.0-1.0 Automated eosinophil count 0.0 10*3/uL 0.0-0.3 Automated blood basophil count (count/volume) 0.0 10*3/uL 0.0-0.1 Comprehensive metabolic panel - 11/03/18 04:55 Serum or plasma sodium measurement (moles/volume) 139 mmol/L 135-145 Serum or plasma potassium measurement (moles/volume) 4.2 mmol/L 3.6-5.0 Serum or plasma chloride measurement (moles/volume) 105 mmol/L 98-107 Carbon dioxide 24 mmol/L 21-32 Serum or plasma anion gap determination (moles/volume) 10 mmol/L 5-14 Serum or plasma urea nitrogen measurement (mass/volume) 28 mg/dL 7-18 Serum or plasma creatinine measurement (mass/volume) 0.82 mg/dL 0.60-1.30 Serum or plasma urea nitrogen/creatinine mass ratio 34 NRG Serum or plasma creatinine measurement with calculation of estimated glomerular filtration rate > NRG Serum or plasma glucose measurement (mass/volume) 229 mg/dL 70-105 Serum or plasma calcium measurement (mass/volume) 8.9 mg/dL 8.5-10.1 Serum or plasma total bilirubin measurement (mass/volume) 0.6 mg/dL 0.1-1.0 Serum or plasma alkaline phosphatase measurement (enzymatic activity/volume) 41 U/L 40-136 Serum or plasma aspartate aminotransferase measurement (enzymatic activity/ volume) 23 U/L 5-34 Serum or plasma alanine aminotransferase measurement (enzymatic activity/volume ) 24 U/L 0-55 Serum or plasma protein measurement (mass/volume) 6.0 g/dL 6.4-8.2 Serum or plasma albumin measurement (mass/volume) 3.5 g/dL 3.2-4.5 CALCIUM CORRECTED 9.3 mg/dL 8.5-10.1 Serum or plasma phosphate measurement (mass/volume) - 11/03/18 04:55 Serum or plasma phosphate measurement (mass/volume) 3.6 mg/dL 2.3-4.7 Magnesium - 11/03/18 04:55 Magnesium 2.2 mg/dL 1.8-2.4 Urine Legionella pneumophila antigen assay - 11/03/18 13:50 Urine Legionella pneumophila antigen assay Negative NRG Streptococcus pneumoniae antigen detection - 11/03/18 13:50 Streptococcus pneumoniae antigen detection Negative NRG Complete blood count (CBC) with automated white blood cell (WBC) differential - 11/04/18 04:25 Blood leukocytes automated count (number/volume) 5.8 10*3/uL 4.3-11.0 Blood erythrocytes automated count (number/volume) 3.88 10*6/uL 4.35-5.85 Venous blood hemoglobin measurement (mass/volume) 11.8 g/dL 13.3-17.7 Blood hematocrit (volume fraction) 34 % 40-54 Automated erythrocyte mean corpuscular volume 88 [foz_us] 80-99 Automated erythrocyte mean corpuscular hemoglobin (mass per erythrocyte) 30 pg 25-34 Automated erythrocyte mean corpuscular hemoglobin concentration measurement ( mass/volume) 34 g/dL 32-36 Automated erythrocyte distribution width ratio 13.8 % 10.0-14.5 Automated blood platelet count (count/volume) 172 10*3/uL 130-400 Automated blood platelet mean volume measurement 10.4 [foz_us] 7.4-10.4 Automated blood neutrophils/100 leukocytes 82 % 42-75 Automated blood lymphocytes/100 leukocytes 10 % 12-44 Blood monocytes/100 leukocytes 8 % 0-12 Automated blood eosinophils/100 leukocytes 0 % 0-10 Automated blood basophils/100 leukocytes 0 % 0-10 Blood neutrophils automated count (number/volume) 4.7 10*3 1.8-7.8 Blood lymphocytes automated count (number/volume) 0.6 10*3 1.0-4.0 Blood monocytes automated count (number/volume) 0.5 10*3 0.0-1.0 Automated eosinophil count 0.0 10*3/uL 0.0-0.3 Automated blood basophil count (count/volume) 0.0 10*3/uL 0.0-0.1 Comprehensive metabolic panel - 11/04/18 04:25 Serum or plasma sodium measurement (moles/volume) 136 mmol/L 135-145 Serum or plasma potassium measurement (moles/volume) 4.0 mmol/L 3.6-5.0 Serum or plasma chloride measurement (moles/volume) 103 mmol/L 98-107 Carbon dioxide 24 mmol/L 21-32 Serum or plasma anion gap determination (moles/volume) 9 mmol/L 5-14 Serum or plasma urea nitrogen measurement (mass/volume) 30 mg/dL 7-18 Serum or plasma creatinine measurement (mass/volume) 0.79 mg/dL 0.60-1.30 Serum or plasma urea nitrogen/creatinine mass ratio 38 NRG Serum or plasma creatinine measurement with calculation of estimated glomerular filtration rate > NRG Serum or plasma glucose measurement (mass/volume) 207 mg/dL 70-105 Serum or plasma calcium measurement (mass/volume) 8.7 mg/dL 8.5-10.1 Serum or plasma total bilirubin measurement (mass/volume) 0.6 mg/dL 0.1-1.0 Serum or plasma alkaline phosphatase measurement (enzymatic activity/volume) 34 U/L 40-136 Serum or plasma aspartate aminotransferase measurement (enzymatic activity/ volume) 18 U/L 5-34 Serum or plasma alanine aminotransferase measurement (enzymatic activity/volume ) 20 U/L 0-55 Serum or plasma protein measurement (mass/volume) 5.6 g/dL 6.4-8.2 Serum or plasma albumin measurement (mass/volume) 3.3 g/dL 3.2-4.5 CALCIUM CORRECTED 9.3 mg/dL 8.5-10.1 Serum or plasma phosphate measurement (mass/volume) - 11/04/18 04:25 Serum or plasma phosphate measurement (mass/volume) 3.9 mg/dL 2.3-4.7 Magnesium - 11/04/18 04:25 Magnesium 2.2 mg/dL 1.8-2.4 Serum or plasma lithium measurement (moles/volume) - 11/04/18 04:25 BNP level 256.8 pg/mL <100.0 Encounters ACCT No. Visit Date/Time Discharge Status Pt. Type Provider Facility Loc./Unit Complaint [id number] 11/21/2018 13:00:00 11/21/2018 23:59:59 CLS Preadmit ABDULAZIZ MARTIN, ANNETTE Singer [facility] PULM PHEUMONIA [id number] 11/17/2018 10:26:00 11/17/2018 23:59:59 CLS Preadmit MANJEET VELAZQUEZ APRN [facility] RT PNEUMONIA,SEPSIS, HYPOXEMIA,DYPSNEA [id number] 10/31/2018 08:00:00 11/04/2018 12:35:00 DIS Inpatient ANNETTE CINTRON MD [facility] 4TH SEVERE SEPSIS;BIBASILAR PNEUMONIA;RESP FAILURE [id number] 04/12/2018 14:06:00 04/12/2018 16:28:00 DIS Emergency FARRAH CARBALLO MD [facility] ER PAIN ON LEFT SIDE, FREQ FALLS [id number] 02/19/2018 03:10:00 02/19/2018 03:48:00 DIS Emergency FARRAH CARBALLO MD [facility] ER DENTAL PAIN [id number] 02/18/2018 20:59:00 02/18/2018 21:18:00 DIS Emergency JITENDRA RUBIO GIVER [facility] ER JAW PAIN [id number] 02/18/2018 10:02:00 02/18/2018 10:25:00 DIS Emergency JITENDRA RUBIO GIVER [facility] ER DENTAL/RIGHT ARM PAIN [id number] 06/23/2016 00:10:00 06/23/2016 23:59:59 CLS Preadmit ANDRÉS JAIN MD [facility] ONC [id number] 04/14/2016 13:46:00 06/22/2016 00:01:00 DIS Outpatient ANDRÉS JAIN MD [facility] ONC [id number] 03/23/2016 13:46:00 03/23/2016 00:01:00 DIS Outpatient ANDRÉS JAIN MD [facility] ONC [id number] 11/26/2014 00:40:00 11/26/2014 12:14:00 DIS Inpatient RENO ELDER MD [facility] 4TH [id number] 11/23/2014 09:34:00 11/23/2014 12:20:00 DIS Emergency JITENDRA RUBIO APRN [facility] ER [id number] 02/07/2014 12:48:00 02/16/2014 13:25:00 DIS Outpatient CHERISE MARTIN, PAUL Saldaña [facility] [id number] [id number] 11/10/2018 11:15:00 11/10/2018 23:59:59 CLS Outpatient LORA JUSTIN APRN [facility] [id number] 07/08/2018 14:20:00 Document Registration
[2018-11-26] MEDS ORDERED: NS IV 1000 ML 1,000 ML IV SCH (12:43)
[2018-11-26] MEDS ORDERED: CEFEPIME INJECTION 1,000 MG in NS (IVPB) 50 ML IV ONE (12:45)
[2018-11-26] MEDS ORDERED: RT-ALBUTEROL/IPRATROPIUM 3 ML (DUONEB) VIAL INH ONE (12:45)
--- NOTE | 2018-11-26 12:52 | ED Respiratory ---
General Stated Complaint: COUGH Source: patient, other Exam Limitations: no limitations History of Present Illness Date Seen by Provider: Nov 26, 2018 Time Seen by Provider: 12:35 Initial Comments Patient presents ER by private conveyance with chief complaint of for the past 2 -3 days having her productive cough with green sputum. He recently was in the hospital with septic shock and pneumonia and was discharged on 10 days of antibiotics. Says things are getting better for about a week or so and then last couple days been getting worse. He feels short of breath. He's been on chronic oxygen since discharge from the hospital. He denies a history of COPD, asthma, fibrosis etc. lung disease. He's not had any fevers or chills. No sick contacts. No nausea vomiting. He did start to experience some epigastric abdominal pain that he thought was acid reflux so he took some gummy antacids and I made it go away but then he started having some pain in his left shoulder pectoralis region that he thought felt like a sports injury. He said it came on after some coughing. He does not have a history of coronary artery disease, heart catheterization etc. He does have a chronic history of hyperlipidemia and high blood pressure. He takes his medicines routinely. He denies a history of smoking, diabetes or familial early onset of coronary artery disease. Allergies and Home Medications Allergies Coded Allergies: No Known Drug Allergies (Unverified , 11/23/14) Home Medications Amoxicillin/Potassium Clav 1 Each Tablet, 875 MG PO BID WITH MEALS Prescribed by: ANNETTE CINTRON on 11/04/18 0916 Atorvastatin Calcium 80 Mg Tablet, 80 MG PO HS, (Reported) Biotin 1,000 Mcg Tablet, 1,000 MCG PO DAILY, (Reported) Clopidogrel Bisulfate 75 Mg Tablet, 75 MG PO DAILY, (Reported) Ginkgo Biloba 120 Mg Tablet, 120 MG PO DAILY, (Reported) Lisinopril/Hydrochlorothiazide 1 Each Tablet, 1 TAB PO DAILY, (Reported) LAST FILLED 07-06-18 #90 Loratadine 10 Mg Tablet, 10 MG PO DAILY PRN for ALLERGIES, (Reported) Multivitamin 1 Each Tablet, 1 TAB PO DAILY, (Reported) Propranolol HCl 10 Mg Tablet, 10 MG PO BID, (Reported) Tramadol HCl 50 Mg Tablet, 100 MG PO TID, (Reported) TAKES 2 (50MG) TABLETS [Super Beta Prostate] , 1 TAB PO DAILY, (Reported) Patient Home Medication List Home Medication List Reviewed: Yes Review of Systems Review of Systems Constitutional: No chills, No diaphoresis, No fever; malaise EENTM: No ear discharge, No ear pain Respiratory: cough, phlegm, short of breath; No wheezing Cardiovascular: see HPI, chest pain; No edema, No Hx of Intervention, No syncope Gastrointestinal: abdominal pain (Transient epigastric GERD); No constipation, No diarrhea, No nausea Genitourinary: No discharge, No dysuria Musculoskeletal: No back pain, No joint pain Skin: No pruritus, No rash Psychiatric/Neurological: Denies Headache, Denies Numbness, Denies Paresthesia Past Osbuliz-Cidscc-Gnhvnn Hx Patient Social History Alcohol Use: Occasionally Uses Alcohol Beverage of Choice: Beer Recreational Drug Use: No Smoking Status: Never a Smoker 2nd Hand Smoke Exposure: No Recent Foreign Travel: No Contact w/Someone Who Travel: No Recent Hopitalizations: No Seasonal Allergies Seasonal Allergies: No Past Medical History Surgeries: Yes (HERNIA REPAIR) Orthopedic Respiratory: No Cardiac: Yes Hypertension Neurological: Yes TIA Reproductive Disorders: No Sexually Transmitted Disease: No HIV/AIDS: No Genitourinary: Yes Benign Prostatic Hyperpl Gastrointestinal: No Musculoskeletal: Yes Arthritis Endocrine: No Loss of Vision: Left Hearing Impairment: Denies Cancer: No Psychosocial: Yes (Alcohol dependence) Integumentary: No Blood Disorders: No Family Medical History Hypertension 19 FATHER Hypertension Physical Exam Vital Signs - First Documented 11/26/18 12:30 Temp 96.2 Pulse 78 Resp 20 B/P (MAP) 133/80 (97) Pulse Ox 97 O2 Delivery Nasal Cannula O2 Flow Rate 3.00 Capillary Refill : Height: 6'0.00" Weight: 199lbs. 11.2oz. 90.917530cj; 26.6 BMI Method:Estimated General Appearance: WD/WN, no apparent distress Eyes: Bilateral Eye Normal Inspection, Bilateral Eye PERRL, Bilateral Eye EOMI HEENT: PERRL/EOMI, normal ENT inspection, TMs normal, pharynx normal Neck: non-tender, full range of motion, normal inspection Respiratory: no respiratory distress, no accessory muscle use, decreased breath sounds; No crackles; other (mild tenderness to the left pectoralis minor and left shoulder) Cardiovascular: normal peripheral pulses, regular rate, rhythm, no edema Gastrointestinal: normal bowel sounds, non tender, soft Extremities: non-tender, normal inspection, normal capillary refill Neurologic/Psychiatric: alert, normal mood/affect, oriented x 3 Focused Exam Lactate Level 11/26/18 12:49: Lactic Acid Level 1.31 Lactic Acid Level Laboratory Tests Test 11/26/18 12:49 Lactic Acid Level 1.31 MMOL/L (0.50-2.00) Progress/Results/Core Measures Suspected Sepsis SIRS Temperature: Pulse: Respiratory Rate: Laboratory Tests 11/26/18 12:49: White Blood Count 9.9 Blood Pressure / Mean: 11/26/18 12:49: Lactic Acid Level 1.31 Laboratory Tests 11/26/18 12:49: Creatinine 0.81, INR Comment 1.0, Platelet Count 203, Total Bilirubin 0.8 Results/Orders Lab Results Laboratory Tests Test 11/26/18 12:49 11/26/18 13:10 11/26/18 13:18 11/26/18 15:03 Range/Units White Blood Count 9.9 4.3-11.0 10^3/uL Red Blood Count 4.44 4.35-5.85 10^6/uL Hemoglobin 13.6 13.3-17.7 G/DL Hematocrit 39 L 40-54 % Mean Corpuscular Volume 87 80-99 FL Mean Corpuscular Hemoglobin 31 25-34 PG Mean Corpuscular Hemoglobin Concent 35 32-36 G/DL Red Cell Distribution Width 14.2 10.0-14.5 % Platelet Count 203 130-400 10^3/uL Mean Platelet Volume 9.8 7.4-10.4 FL Neutrophils (%) (Auto) 77 H 42-75 % Lymphocytes (%) (Auto) 11 L 12-44 % Monocytes (%) (Auto) 10 0-12 % Eosinophils (%) (Auto) 1 0-10 % Basophils (%) (Auto) 0 0-10 % Neutrophils # (Auto) 7.6 1.8-7.8 X 10^3 Lymphocytes # (Auto) 1.1 1.0-4.0 X 10^3 Monocytes # (Auto) 1.0 0.0-1.0 X 10^3 Eosinophils # (Auto) 0.1 0.0-0.3 10^3/uL Basophils # (Auto) 0.0 0.0-0.1 10^3/uL Prothrombin Time 13.0 12.2-14.7 SEC INR Comment 1.0 0.8-1.4 Activated Partial Thromboplast Time 30 24-35 SEC Sodium Level 135 135-145 MMOL/L Potassium Level 4.2 3.6-5.0 MMOL/L Chloride Level 100 98-107 MMOL/L Carbon Dioxide Level 25 21-32 MMOL/L Anion Gap 10 5-14 MMOL/L Blood Urea Nitrogen 9 7-18 MG/DL Creatinine 0.81 0.60-1.30 MG/DL Estimat Glomerular Filtration Rate > 60 BUN/Creatinine Ratio 11 Glucose Level 176 H 70-105 MG/DL Lactic Acid Level 1.31 0.50-2.00 MMOL/L Calcium Level 9.4 8.5-10.1 MG/DL Corrected Calcium 9.6 8.5-10.1 MG/DL Total Bilirubin 0.8 0.1-1.0 MG/DL Aspartate Amino Transf (AST/SGOT) 17 5-34 U/L Alanine Aminotransferase (ALT/SGPT) 13 0-55 U/L Alkaline Phosphatase 78 40-136 U/L Troponin I < 0.028 < 0.028 <0.028 NG/ML Total Protein 6.4 6.4-8.2 GM/DL Albumin 3.7 3.2-4.5 GM/DL Urine Color YELLOW Urine Clarity CLEAR Urine pH 8 5-9 Urine Specific [place] 1.010 L 1.016-1.022 Urine Protein 1+ H NEGATIVE Urine Glucose (UA) 2+ H NEGATIVE Urine Ketones NEGATIVE NEGATIVE Urine Nitrite NEGATIVE NEGATIVE Urine Bilirubin NEGATIVE NEGATIVE Urine Urobilinogen 1 NORMAL MG/DL Urine Leukocyte Esterase NEGATIVE NEGATIVE Urine RBC (Auto) NEGATIVE NEGATIVE Urine RBC NONE /HPF Urine WBC NONE /HPF Urine Crystals NONE /LPF Urine Bacteria TRACE /HPF Urine Casts NONE /LPF Urine Mucus NEGATIVE /LPF Urine Culture Indicated NO Blood Gas Puncture Site RIGHT RAD Blood Gas Patient Temperature 96.2 Arterial Blood pH 7.45 H 7.37-7.43 Arterial Blood Partial Pressure CO2 39 35-45 MMHG Arterial Blood Partial Pressure O2 71 L 79-93 MMHG Arterial Blood HCO3 27 23-27 MMOL/L Arterial Blood Total CO2 28.4 21.0-31.0 MMOL/L Arterial Blood Oxygen Saturation 96 94-100 % Arterial Blood Base Excess 3.1 H -2.5-2.5 MMOL/L Stas Test YES-POS Blood Gas Ventilator Setting NO Blood Gas Inspired Oxygen 3 My Orders Orders - JASPAL ALONSO Cbc With Automated Diff (11/26/18 12:43) Comprehensive Metabolic Panel (11/26/18 12:43) Blood Culture (11/26/18 12:43) Sputum Culture (11/26/18 12:43) Urinalysis (11/26/18 12:43) Urine Culture (11/26/18 12:43) Protime With Inr (11/26/18 12:43) Partial Thromboplastin Time (11/26/18 12:43) Saline Lock/Iv-Start (11/26/18 12:43) Saline Lock/Iv-Start (11/26/18 12:43) Ekg Tracing (11/26/18 12:43) Troponin I (11/26/18 12:43) Vital Signs Adult Sepsis Patie Q15M (11/26/18 12:43) O2 (11/26/18 12:43) Remove Rings In Anticipation O (11/26/18 12:43) Lactic Acid Analyzer (11/26/18 12:43) Ns Iv 1000 Ml (Sodium Chloride 0.9%) (11/26/18 12:43) Cefepime Injection (Maxipime Injection) (11/26/18 12:45) Chest Pa/Lat (2 View) (11/26/18 12:43) Albuterol/Ipra Inhalation Soln (Duoneb I (11/26/18 12:45) Svn Small Volume Nebulizer (11/26/18 12:43) Arterial Blood Gas (11/26/18 13:17) Arterial Blood Draw (11/26/18 13:23) Troponin I (11/26/18 14:58) Medications Given in ED Current Medications Medications Dose Ordered Sig/Colton Route Start Time Stop Time Status Last Admin Dose Admin Cefepime HCl 1000 mg/Sodium Chloride 50 ml @ 100 mls/hr ONCE ONCE IV 11/26/18 12:45 11/26/18 13:16 DC 11/26/18 13:25 100 MLS/HR Vital Signs/I&O 11/26/18 11/26/18 11/26/18 11/26/18 12:30 13:20 13:35 14:37 Temp 96.2 Pulse 78 67 Resp 20 16 B/P (MAP) 133/80 (97) 119/69 (86) Pulse Ox 97 98 96 O2 Delivery Nasal Cannula Nasal Cannula Nasal Cannula Nasal Cannula O2 Flow Rate 3.00 3.00 3.00 3.00 Capillary Refill : Progress Note : Time: 13:05 Progress Note The chest pain seems to be musculoskeletal since is reproducible however the EKG initially is negative we'll get some troponin. We'll work him up for likely that of pneumonia. Some blood and sputum cultures. EDACS 13 points. Low risk. If the patient also has: (1) EKG without new ischemic changes and (2) negative initial and 2-hour troponins, then this patient is safe for discharge to early outpatient follow-up investigation (or proceed to earlier inpatient testing). If EKG with ischemic changes or positive troponin, they are not low risk and require normal risk stratification. ECG Initial ECG Impression Date: Nov 26, 2018 Initial ECG Impression Time: 12:34 Initial ECG Rate: 77 Initial ECG Rhythm: Normal Sinus Initial ECG Intervals: Normal Initial ECG Impression: Normal, Nonspecific Changes Comment Left ventricular hypertrophy and no ST elevation or depression. Diagnostic Imaging Diagonstic Imaging: Xray Plain Films/CT/US/NM/MRI: chest (2v) Reviewed: Reviewed by Me Consults Consults : Consulting Physician: Frankie GRIFFIN MD Consults Notes Discuss initial labs EKG and story and Dr. Griffin said he will swing by see the patient. He recommends delta troponin rule out. Departure Impression Primary Impression: Left-sided chest wall pain Additional Impressions: Left shoulder pain Qualified Codes: M25.512 - Pain in left shoulder Bronchitis Disposition: 01 HOME, SELF-CARE Condition: Stable Departure-Patient Inst. Decision time for Depature: 15:39 Referrals: DIANA PRINCE M RIZWAN MD SEGLIE, FLOYD R MD (PCP/Family) Primary Care Physician Patient Instructions: Acute Bronchitis, Adult (DC), Chest Pain That Is Not Caused by the Heart (DC) Add. Discharge Instructions: Drink plenty of fluids. Use the cough medicine one capsule every 6 hours as needed for relief. Follow-up with primary care in the next couple weeks. Discuss with pulmonology possibility of chronic lung disease. Call Dr. Griffin, cardiology [place] morning and request an appointment early next week just discuss any cardiac risk and what can be done. For the pain in your chest and shoulder you can try Aleve or Tylenol. JASPAL ALONSO Nov 26, 2018 12:52
[2018-11-26 12:59] LABS: BASOPHILS % (AUTO) 0 % (0-10); EOSINOPHILS # (AUTO) 0.1 10^3/uL (0.0-0.3); EOSINOPHILS % (AUTO) 1 % (0-10); HEMATOCRIT 39 % (40-54); HEMOGLOBIN 13.6 G/DL (13.3-17.7); LYMPHOCYTES # (AUTO) 1.1 X 10^3 (1.0-4.0); LYMPHOCYTES % (AUTO) 11 % (12-44); MEAN CORPUSCULAR HEMOGLOBIN 31 PG (25-34); MEAN CORPUSCULAR HGB CONC 35 G/DL (32-36); MEAN CORPUSCULAR VOLUME 87 FL (80-99); MEAN PLATELET VOLUME 9.8 FL (7.4-10.4); MONOCYTES % (AUTO) 10 % (0-12); NEUTROPHILS # (AUTO) 7.6 X 10^3 (1.8-7.8); NEUTROPHILS % (AUTO) 77 % (42-75); PLATELET COUNT 203 10^3/uL (130-400); RED CELL DISTRIBUTION WIDTH 14.2 % (10.0-14.5); WHITE BLOOD COUNT 9.9 10^3/uL (4.3-11.0)
[2018-11-26 13:16] LABS: BILIRUBIN,URINE NEGATIVE (NEGATIVE); CLARITY,URINE CLEAR; COLOR,URINE YELLOW; GLUCOSE, URINE (UA) 2+ (NEGATIVE); KETONES,URINE NEGATIVE (NEGATIVE); LEUKOCYTE ESTERASE ,URINE NEGATIVE (NEGATIVE); NITRITE,URINE NEGATIVE (NEGATIVE); PH,URINE 8 (5-9); PROTEIN,URINE 1+ (NEGATIVE); UROBILINOGEN,URINE 1 MG/DL (NORMAL)
[2018-11-26 13:21] LABS: ALANINE AMINOTRANSFERASE 13 U/L (0-55); ALBUMIN 3.7 GM/DL (3.2-4.5); ALKALINE PHOSPHATASE 78 U/L (40-136); BILIRUBIN,TOTAL 0.8 MG/DL (0.1-1.0); BUN/CREATININE RATIO 11; CALCIUM 9.4 MG/DL (8.5-10.1); CARBON DIOXIDE 25 MMOL/L (21-32); CHLORIDE 100 MMOL/L (98-107); CREATININE SERUM 0.81 MG/DL (0.60-1.30); GFR ESTIMATED > 60; GLUCOSE 176 MG/DL (70-105); POTASSIUM 4.2 MMOL/L (3.6-5.0); SODIUM 135 MMOL/L (135-145); TOTAL PROTEIN 6.4 GM/DL (6.4-8.2)
[2018-11-26 13:22] LABS: BACTERIA,URINE TRACE /HPF
[2018-11-26 13:30] LABS: ABG BASE EXCESS 3.1 MMOL/L (-2.5-2.5); ABG OXYGEN SATURATION 96 % (94-100); ABG PCO2 39 MMHG (35-45); ABG PH 7.45 (7.37-7.43); ABG PO2 71 MMHG (79-93); ABG TCO2 28.4 MMOL/L (21.0-31.0)
[2018-11-26 13:31] LABS: ALLENS TEST YES-POS
[2018-11-26 13:32] LABS: INSPIRED O2 3; PATIENT TEMP 96.2; VENTILATOR NO
--- NOTE | 2018-11-26 13:57 | Diagnostic Imaging Report ---
INDICATION: Chest pain COMPARISON: 11/04/2018 FINDINGS: Frontal and lateral views the chest demonstrate clear lungs bilaterally. The heart size is normal. There is no pneumothorax. Osseous structures are normal. IMPRESSION: No acute findings. Normal chest. Dictated by: Dictated on workstation # [id number]
--- NOTE | 2018-11-26 13:58 | Consultation-Cardiology ---
HPI-Cardiology Cardiology Consultation: Date of Consultation 11/26/18 Date of Admission Attending Physician Admitting Physician Julián Tobin MD Consulting Physician Frankie GRIFFIN MD HPI: Time Seen by a Provider: 14:00 Chief Complaint: Chest pain This is a 68-year-old gentleman with history of hypertension and hyperlipidemia. He denies active smoking or family history of early CAD. He presents with 2-3 days of bronchitis-like symptoms with productive cough and sputum. He was recently in the hospital due to pneumonia/shock and continues to be on antibiotics. He is getting a little bit better. He still feels short of breath and has been on oxygen therapy. He also complains of chest discomfort. Mild to moderate intensity. No significant radiation. No other associated factors. He denies any previous cardiac history. Review of Systems-Cardiology Review of Systems Constitutional: As described under HPI; No As described under HPI, No no symptoms reported, No chills, No fever, No lightheadedness Eyes: No As described under HPI, No no symptoms reported, No blindness, No blurred vision, No contact lenses, No drainage, No decreased acuity, No foreign body sensation, No pain, No vision change Ears/Nose/Throat: No As described under HPI, No no symptoms reported, No chronic hearing loss, No ear discharge, No ear pain, No nasal drainage, No ulcerations Respiratory: No no symptoms reported; As described under HPI; No As described under HPI, No cough, No orthopnea; shortness of breath; No SOB with excertion Cardiovascular: No no symptoms reported; As described under HPI; No As described under HPI; chest pain; No edema, No irregular heart rate, No lightheadedness, No palpitations Gastrointestinal: No no symptoms reported, No As described under HPI, No abdomen distended, No abdominal pain, No blood streaked bowels, No constipation , No diarrhea, No nausea, No vomiting, No stool coloration changes Genitourinary: No As described under HPI, No burning, No dysuria, No discharge , No frequency, No flank pain, No hematuria, No urgency Skin: No rash, No skin related problems, No ulcerations Psychiatric/Neurological: No anxiety, No depression, No seizure, No focal weakness, No syncope Hematologic: No bleeding abnormalities OWE-Pcmnki-Gfpvqq Hx Patient Social History Alcohol Use: Occasionally Uses Recreational Drug Use: No Smoking Status: Never a Smoker 2nd Hand Smoke Exposure: No Recent Foreign Travel: No Recent Infectious Disease Expo: No Hospitalization with Isolation: Unknown Past Medical History PMH As described under Assessment. Family Medical History Family History: Hypertension 19 FATHER Allergies and Home Medications Allergies Coded Allergies: No Known Drug Allergies (Unverified , 11/23/14) Home Medications Amoxicillin/Potassium Clav 1 Each Tablet, 875 MG PO BID WITH MEALS Prescribed by: ANNETTE CINTRON on 11/04/18 0916 Atorvastatin Calcium 80 Mg Tablet, 80 MG PO HS, (Reported) Benzonatate 100 Mg Capsule, 100 MG PO Q6H PRN for COUGH Prescribed by: JASPAL ALONSO on 11/26/18 1603 Biotin 1,000 Mcg Tablet, 1,000 MCG PO DAILY, (Reported) Clopidogrel Bisulfate 75 Mg Tablet, 75 MG PO DAILY, (Reported) Ginkgo Biloba 120 Mg Tablet, 120 MG PO DAILY, (Reported) Lisinopril/Hydrochlorothiazide 1 Each Tablet, 1 TAB PO DAILY, (Reported) LAST FILLED 07-06-18 #90 Loratadine 10 Mg Tablet, 10 MG PO DAILY PRN for ALLERGIES, (Reported) Multivitamin 1 Each Tablet, 1 TAB PO DAILY, (Reported) Propranolol HCl 10 Mg Tablet, 10 MG PO BID, (Reported) Tramadol HCl 50 Mg Tablet, 100 MG PO TID, (Reported) TAKES 2 (50MG) TABLETS [Super Beta Prostate] , 1 TAB PO DAILY, (Reported) Patient Home Medication List Home Medication List Reviewed: Yes Physical Exam-Cardiology Physical Exam Vital Signs/I&O 11/27/18 00:00 Intake Total 1050 ml Balance 1050 ml Capillary Refill : Less Than 3 Seconds Constitutional: appears stated age, AAO x 3; No apparent distress; well- developed, well-nourished HEENT: PERRL; No normal ENT inspection, No TMs normal, No pharynx normal, No scleral icterus (R), No scleral icterus (L), No pale conjunctivae (R), No pale conjunctivae (L), No photophobia, No TM abnormal (R), No TM abnormal (L), No pharyngeal erythema, No tonsillar exudate, No other, No discharge, No EOMI; hearing is well preserved; No hard of hearing; oral hygience is good; No ulceration, No xanthelasmas are seen Neck: No non-tender, No full range of motion, No supple, No normal inspection, No carotid bruit, No limited range of motion, No lymphadenopathy (R), No lymphadenopathy (L), No tender lateral, No tender midline, No thyromegaly, No other; carotid pulses are 2 + bilaterally; No with good upstrokes Respiratory: No accessory muscle use, No respiratory distress, No chest tender , No chest expansion is symmetric; chest is bilaterally symmetric; No lungs clear to percussion; lungs clear to auscultation; No crackles, No rhonchi, No rales, No stridor, No wheezing, No pleural rub, No other Cardiovascular: regular rate-rhythm; No irregularly irregular, No extra beats, No parasternal heave is noted, No JVD, No edema, No bradycardia, No tachycardia , No point of maximal impulse, No cardiac thrills are palpable; S1 and S2; No gallop/S3, No gallop/S4, No diastolic murmur, No systolic murmur, No friction rub, No click, No other Gastrointestinal: No tender, No soft, No round, No distended, No pulsatile mass , No organomegaly, No guarding, No rebound, No tenderness, No hernia, No mass, No audible bowel sounds, No abnormal bowel sounds, No abdominal bruits, No spleenomegaly, No other Rectal: deferred Extremities: No normal range of motion, No non-tender, No normal inspection, No pedal edema, No calf tenderness, No normal capillary refill, No pelvis stable , No calf tenderness, No inflammation, No pedal edema, No slow capillary refill , No swelling, No other, No abrasion, No clubbing, No cyanosis, No ecchymosis, No laceration, No no lower extremity edema bilateral, No significant edema, No tenderness, No wound Neurologic/Psychiatric: no motor/sensory deficits, alert, normal mood/affect, oriented x 3, power is 5/5 both on sides Skin: No normal color, No warm/dry, No cyanosis, No cool, No diaphoresis, No damp, No ecchymosis, No jaundice, No mottled, No pallor, No rash, No tattoos/ piercings, No ulcerations, No rash on exposed areas, No ulcerations on exposed areas, No other Data Review Labs Microbiology 11/26/18 Blood Culture - Preliminary, Resulted No growth ECG Impression ECG Initial ECG Rhythm: Normal Sinus Initial ECG Impression: Normal A/P-Cardiology Assessment/Admission Diagnosis Chest pain, Hypertension, Hyperlipidemia Plan We will rule out acute coronary syndrome with serial negative troponin and EKG. Initial troponin and EKG is negative. Patient does have risk factors for CAD including hypertension and hyperlipidemia. We will arrange for a stress test as an outpatient. Hypertension: Continue FREDO inhibitor. Hyperlipidemia: Continue statin therapy. Thank you for your consultation. Please call me if you have any questions. Joselin Griffin MD, FACP, FACC, FSCAI, FHRS, CCDS Interventional Cardiology Cardiac Electrophysiology Vascular Medicine and Endovascular Interventions Frankie GRIFFIN MD Nov 26, 2018 13:58
--- NOTE | 2018-11-26 14:06 | NUR ---
PATIENT AWAKE AND ALERT, RESTING QUIETLY IN BED. PATIENT HAS NO COMPLAINTS AT THIS TIME. VITAL SIGNS STABLE.
[2018-11-26 14:37] VITALS: BP 119/69
--- NOTE | 2018-11-26 15:04 | NUR ---
BLOOD DRAW DONE FOR LAB BY GABINO.
[2018-11-26 16:02] VITALS: BP 115/74
[2018-11-26] MEDS ORDERED: BENZ-13 PO (16:03)
== END 2018-11-26 16:03 | disposition home or self-care (01) ==
LOC: EDUNIT# 12:27 → ER 12:29
DX: R07.89 Other chest pain (principal); M25.512 Pain in left shoulder; J40 Bronchitis, not specified as acute or chronic; E78.5 Hyperlipidemia, unspecified; I10 Essential (primary) hypertension; F10.20 Alcohol dependence, uncomplicated; Z87.448 Personal history of other diseases of urinary system; Z86.73 Personal history of transient ischemic attack (TIA), and cerebral infarction without residual deficits; Z79.02 Long term (current) use of antithrombotics/antiplatelets; Z98.890 Other specified postprocedural states
CPT/HCPCS: 36415; 36600; 71046; 80053; 81000; 82805; 83605; 84484; 85025; 85610; 85730; 87040; 87070; 87088; 87205; 93005; 94640; 96361; 96365

== ENCOUNTER 2018-12-05 09:22 | Outpatient (RCR) | payer MEDICARE, OTHER ==
[~2018-12-05] VITALS: Ht 182.9 cm; Wt 83.9 kg
[~2018-12-05 09:22] MED LIST changes: +BENZ-13 PO
[2018-12-05 09:43] VITALS: BP 125/50
--- NOTE | 2018-12-05 11:03 | Pulmonary Rehab Eval/Txmt Plan ---
Pulmonary Rehab Initial Eval Information Paper Evaluation Completed: No Date: Dec 05, 2018 Therapist: CHANDRAKANT ANDREA Diagnosis: ACUTE RESPIRATORY FAILUE Pulmonary Rehab Treatment Plan Treatment P Treatment Periord: Initial Diagnosis Diagnosis: ACUTE RESPIRATORY FAILURE Date: Dec 05, 2018 Barriers to Learning Barriers: None Assessment/Problems Exercise: Deconditioning Type: AEROBIC Frequency: 2 X'S PER WEEK Duration: 1 HR CLASS, EXERCISE PER PT'S TOLERANCE Barriers to Exercise: NONE Initial MET Level: 2 Aerobic Exercise/Goals Freq: time per week minus NM: 2 MET Level=: 2 Type: Arm Ergometry, Bike, Scifi/Nustep, Treadmill LORA LUONG DO Dec 05, 2018 11:03
[2019-02-02] MEDS ORDERED: CETI10TA20 PO (12:16)
[2019-02-02] MEDS ORDERED: BICA50TA5 PO (12:16)
== END 2019-03-05 | disposition home or self-care (01) ==
LOC: PULM 09:22
PROVIDERS: ATTEND Family Medicine
DX: J18.9 Pneumonia, unspecified organism (principal); J96.01 Acute respiratory failure with hypoxia

== ENCOUNTER → 2018-12-30 | Outpatient (CLI) | payer MEDICARE, OTHER | LOC: CARD 10:56 | PROVIDERS: ATTEND Internal Medicine Interventional Cardiology | DX: R07.9 Chest pain, unspecified (principal); E78.5 Hyperlipidemia, unspecified; I10 Essential (primary) hypertension; I35.0 Nonrheumatic aortic (valve) stenosis | CPT/HCPCS: 93306 ==

== ENCOUNTER → 2019-01-04 | Outpatient (CLI) | payer MEDICARE, OTHER ==
[~2019-01-04] MED LIST changes: +RT-ALBUTEROL SULF 2.5 MG/3 ML PRE-MIX VIAL INH ONE
== END ==
LOC: RT 15:47
PROVIDERS: ATTEND Nurse Practitioner Family
DX: A41.9 Sepsis, unspecified organism (principal); J18.9 Pneumonia, unspecified organism; J30.2 Other seasonal allergic rhinitis; R09.02 Hypoxemia; R06.00 Dyspnea, unspecified
CPT/HCPCS: 94060; 94726; 94729

== ENCOUNTER → 2019-01-05 | Outpatient (CLI) | payer MEDICARE, OTHER ==
[~2019-01-05] VITALS: Ht 182.9 cm; Wt 86.2 kg
[~2019-01-05] MED LIST changes: +CATHETER FLUSH 10 ML SYR IV PRN; +REGADENOSON 0.4 MG/5 ML SYR (LEXISCAN) IV ONE; -RT-ALBUTEROL SULF 2.5 MG/3 ML PRE-MIX VIAL INH ONE
[2019-01-05 09:52] VITALS: BP 139/85
[2019-01-05 09:56] VITALS: BP 176/94
== END ==
LOC: CARD 08:06
PROVIDERS: ATTEND Internal Medicine Interventional Cardiology
DX: R07.9 Chest pain, unspecified (principal); E78.5 Hyperlipidemia, unspecified; I10 Essential (primary) hypertension
CPT/HCPCS: 78452; 93017

== ENCOUNTER 2019-02-02 11:00 | Day surgery (SDC) | payer MEDICARE, OTHER ==
[~2019-02-02] VITALS: Ht 182.9 cm; Wt 85.3 kg
[~2019-02-02 11:00] MED LIST changes: -CATHETER FLUSH 10 ML SYR IV PRN; -REGADENOSON 0.4 MG/5 ML SYR (LEXISCAN) IV ONE
[2019-02-02] MEDS ORDERED: NS IV 1000 ML 1,000 ML IV SCH (11:01)
[2019-02-02] MEDS ORDERED: LIDOCAINE 1% INJ 20 ML 20 ML VIAL ONE (11:02)
[2019-02-02] MEDS ORDERED: HEParin 1000 UNIT/ML (10ML VIAL) FOR BOLUS ONE (11:02)
[2019-02-02] MEDS ORDERED: NS IV 1000 ML 3,000 ML ONE (11:02)
--- OUTSIDE RECORDS SUMMARY | 2019-02-02 11:23 | XMS REPORT | Continuity of Care Document ---
Author Author [facility] Organization [facility] Address Unknown Phone Unavailable Allergies Active Description Code Type Severity Reaction Onset Reported/Identified Relationship to Patient Clinical Status Yes No Known Drug Allergies [id number] Drug Allergy Unknown N/A 11/23/2014 Medications There is no data. 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, ONE EYE 11/26/2014 RENO ELDER MD Ot 401.9 HYPERTENSION NOS 11/26/2014 RENO ELDER MD Ot 434.91 CEREBRAL ART OCCLUSION NOS W CEREBRAL IN 11/26/2014 RENO ELDER MD Ot 369.60 11/26/2014 RENO ELDER MD Ot 401.9 11/26/2014 RENO ELDER MD Ot 434.91 01/21/2016 ANDRÉS JAIN MD Ot C61 02/05/2016 ANDRÉS JAIN MD Ot C61 03/23/2016 ANDRÉS JAIN MD Ot C61 MALIGNANT NEOPLASM OF PROSTATE 03/23/2016 ANDRÉS JAIN MD Ot Z51.0 ENCOUNTER FOR ANTINEOPLASTIC RADIATION T 03/25/2016 ANDRÉS JAIN MD Ot C61 MALIGNANT [...] OF TEETH AND S 02/18/2018 JITENDRA RUBIO COTTAGE PARENT Ot Z79.82 CIRCUS TRAIN SUPERVISOR (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 02/18/2018 JITENDRA RUBIO APRN Ot Z86.73 PRSNL HX OF TIA (TIA), AND CEREB INFRC W 02/18/2018 JITENDRA RUBIO COTTAGE PARENT Ot Z87.19 PERSONAL HISTORY OF OTHER DISEASES OF TH 02/18/2018 JITENDRA RUBIO APRN Ot I10 ESSENTIAL (PRIMARY) HYPERTENSION 02/18/2018 JITENDRA RUBIO COTTAGE PARENT Ot K08.89 OTHER SPECIFIED DISORDERS OF TEETH AND S 02/18/2018 JITENDRA RUBIO COTTAGE PARENT Ot R68.84 JAW PAIN 02/18/2018 JITENDRA RUBIO COTTAGE PARENT Ot Z79.82 RESIDENTIAL (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 02/18/2018 JITENDRA RUBIO COTTAGE PARENT Ot Z86.73 PRSNL HX OF TIA (TIA), [...] LOW 02/19/2018 FARRAH CARBALLO MD Ot Z79.82 RESIDENTIAL (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 02/19/2018 FARRAH CARBALLO [...] PAIN 02/21/2018 JITENDRA RUBIO APRN Ot Z79.82 CIRCUS TRAIN SUPERVISOR (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 02/21/2018 JITENDRA RUBIO APRN Ot Z86.73 PRSNL HX OF TIA (TIA), AND CEREB INFRC W 02/21/2018 JITENDRA RUBIO APRN Ot Z87.19 PERSONAL HISTORY OF OTHER DISEASES OF TH 02/21/2018 FARRAH CARBALLO MD Ot I10 ESSENTIAL (PRIMARY) HYPERTENSION 02/21/2018 FARRAH CARBALLO MD Ot K08.89 OTHER SPECIFIED DISORDERS OF TEETH AND S 02/21/2018 FARRAH CARBALLO MD Ot M19.90 UNSPECIFIED OSTEOARTHRITIS, UNSPECIFIED 02/21/2018 FARRAH CARBALLO MD Ot N40.0 BENIGN PROSTATIC HYPERPLASIA WITHOUT LOW 02/21/2018 FARRAH CARBALLO MD Ot Z79.82 CIRCUS TRAIN SUPERVISOR (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 02/21/2018 FARRAH CARBALLO MD Ot Z86.73 PRSNL HX OF TIA (TIA), AND CEREB INFRC W 02/21/2018 FARRAH CARBALLO MD Ot Z98.890 OTHER SPECIFIED POSTPROCEDURAL STATES 02/24/2018 JITENDRA RUBIO APRN Ot I10 ESSENTIAL (PRIMARY) HYPERTENSION 02/24/2018 JITENDRA RUBIO APRN Ot K08.89 OTHER SPECIFIED DISORDERS OF TEETH AND S 02/24/2018 JITENDRA RUBIO APRN Ot Z79.82 CIRCUS TRAIN SUPERVISOR (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 02/24/2018 JITENDRA RBUIO COTTAGE PARENT Ot Z86.73 PRSNL HX OF TIA (TIA), AND CEREB INFRC W 02/24/2018 JITENDRA RUBIO COTTAGE PARENT Ot Z87.19 PERSONAL HISTORY OF OTHER DISEASES [...] ENCOUNTER 04/12/2018 FARRAH CARBALLO MD Ot Z79.82 CIRCUS TRAIN SUPERVISOR (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 04/12/2018 FARRAH CARBALLO MD Ot Z86.73 PRSNL HX OF TIA (TIA), AND CEREB INFRC W 04/12/2018 FARRAH CARBALLO MD T Ot Z87.19 PERSONAL HISTORY OF OTHER DISEASES [...] ENCOUNTER 04/14/2018 FARRAH CARBALLO MD Ot Z79.82 CIRCUS TRAIN SUPERVISOR (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 04/14/2018 HARIS MARTIN, FARRAH Avalos Ot Z86.73 PRSNL HX OF TIA (TIA), AND CEREB INFRC W 04/14/2018 FARRAH CARBALLO MD Ot Z87.19 PERSONAL HISTORY OF OTHER DISEASES OF TH 11/03/2018 ANNETTE CINTRON MD Ot A41.9 SEPSIS, [...] J18.9 PNEUMONIA, UNSPECIFIED ORGANISM 11/04/2018 ANNETTE CINTRON MD, Ot J20.9 ACUTE BRONCHITIS, UNSPECIFIED 11/04/2018 ANNETTE [...] OF TIA (TIA), AND CEREB INFRC W 11/26/2018 JASPAL ALONSO MD Ot E78.5 HYPERLIPIDEMIA, UNSPECIFIED 11/26/2018 JASPAL ALONSO MD Ot F10.20 ALCOHOL DEPENDENCE, UNCOMPLICATED 11/26/2018 JASPAL ALONSO MD Ot I10 ESSENTIAL (PRIMARY) HYPERTENSION 11/26/2018 JASPAL ALONSO MD Ot J40 BRONCHITIS, NOT SPECIFIED ACUTE OR CH 11/26/2018 JASPAL ALONSO MD Ot M25.512 PAIN IN LEFT SHOULDER 11/26/2018 JASPAL ALONSO MD Ot R05 COUGH 11/26/2018 JASPAL ALONSO MD Ot R07.89 OTHER CHEST PAIN 11/26/2018 JASPAL ALONSO MD Ot Z79.02 RESIDENTIAL (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 OF ANTITHROMBOTI 11/26/2018 JASPAL ALONSO MD Ot Z86.73 PRSNL HX OF TIA (TIA), AND CEREB INFRC W 11/26/2018 JASPAL ALONSO MD Ot Z87.448 PERSONAL HISTORY OF OTHER DISEASES OF UR 11/26/2018 JASPAL ALONSO MD Ot Z98.890 OTHER SPECIFIED POSTPROCEDURAL STATES 11/27/2018 ANDRÉS JAIN MD Ot C61 MALIGNANT NEOPLASM OF PROSTATE 11/27/2018 ANDRÉS JAIN MD Ot Z51.0 ENCOUNTER FOR ANTINEOPLASTIC RADIATION T 11/29/2018 JASPAL ALONSO MD Ot E78.5 HYPERLIPIDEMIA, UNSPECIFIED 11/29/2018 JASPAL ALONSO MD Ot F10.20 ALCOHOL DEPENDENCE, UNCOMPLICATED 11/29/2018 JASPAL ALONSO MD Ot I10 ESSENTIAL (PRIMARY) HYPERTENSION 11/29/2018 JASPAL ALONSO MD, Ot J40 BRONCHITIS, NOT SPECIFIED ACUTE OR CH 11/29/2018 JASPAL ALONSO MD Ot M25.512 PAIN IN LEFT SHOULDER 11/29/2018 JASPAL ALONSO MD Ot R05 COUGH 11/29/2018 JASPAL ALONSO MD Ot R07.89 OTHER CHEST PAIN 11/29/2018 JASPAL ALONSO MD Ot Z79.02 RESIDENTIAL (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 OF ANTITHROMBOTI 11/29/2018 JASPAL ALONSO MD Ot Z86.73 PRSNL HX OF TIA (TIA), AND CEREB INFRC W 11/29/2018 JASPAL ALONSO MD Ot Z87.448 PERSONAL HISTORY OF OTHER DISEASES OF UR 11/29/2018 CELESTE MARTIN, JASPAL Renner Ot Z98.890 OTHER SPECIFIED POSTPROCEDURAL STATES 01/02/2019 YAKOV MARTIN, Frankie BREWSTER Ot E78.5 HYPERLIPIDEMIA, UNSPECIFIED 01/02/2019 Frankie NAGY MD Ot I10 ESSENTIAL (PRIMARY) HYPERTENSION 01/02/2019 Frankie NAGY MD Ot I35.0 NONRHEUMATIC AORTIC (VALVE) STENOSIS 01/02/2019 Frankie NAGY MD Ot R07.9 CHEST PAIN, UNSPECIFIED 01/05/2019 MANJEET VELAZQUEZ APRN Ot A41.9 SEPSIS, UNSPECIFIED ORGANISM 01/05/2019 MANJEET VELAZQUEZ APRN Ot J18.9 PNEUMONIA, UNSPECIFIED ORGANISM 01/05/2019 MANJEET VELAZQUEZ APRN Ot J30.2 OTHER SEASONAL ALLERGIC RHINITIS 01/05/2019 MANJEET VELAZQUEZ APRN Ot R06.00 DYSPNEA, UNSPECIFIED 01/05/2019 MANJEET VELAZQUEZ APRN Ot R09.02 HYPOXEMIA 01/06/2019 Frankie NAGY MD Ot E78.5 HYPERLIPIDEMIA, UNSPECIFIED 01/06/2019 Frankie NAGY MD Ot I10 ESSENTIAL (PRIMARY) HYPERTENSION 01/06/2019 Frankie NAGY MD Ot R07.9 CHEST PAIN, UNSPECIFIED 01/11/2019 Frankie NAGY MD Ot E78.5 HYPERLIPIDEMIA, UNSPECIFIED 01/11/2019 Frankie NAGY MD Ot I10 ESSENTIAL (PRIMARY) HYPERTENSION 01/11/2019 Frankie NAGY MD Ot R07.9 CHEST PAIN, UNSPECIFIED 01/20/2019 Frankie NAGY MD Ot E78.5 HYPERLIPIDEMIA, UNSPECIFIED 01/20/2019 Frankie NAGY MD Ot I10 ESSENTIAL (PRIMARY) HYPERTENSION 01/20/2019 Frankie NAGY MD Ot I35.0 NONRHEUMATIC AORTIC (VALVE) STENOSIS 01/20/2019 Frankie NAGY MD Ot R07.9 CHEST PAIN, UNSPECIFIED 01/25/2019 MANJEET VELAZQUEZ APRN Ot A41.9 SEPSIS, UNSPECIFIED ORGANISM 01/25/2019 MANJEET VELAZQUEZ APRN Ot J18.9 PNEUMONIA, UNSPECIFIED ORGANISM 01/25/2019 MANJEET VELAZQUEZ APRN Ot J30.2 OTHER SEASONAL ALLERGIC RHINITIS 01/25/2019 MANJEET VELAZQUEZ APRN Ot R06.00 DYSPNEA, UNSPECIFIED 01/25/2019 MANJEET VELAZQUEZ APRN Ot R09.02 HYPOXEMIA 01/25/2019 YAKOV MARTIN M NEY [place] E78.5 HYPERLIPIDEMIA, UNSPECIFIED 01/25/2019 YAKOV MARTIN M NEY Ot I10 ESSENTIAL (PRIMARY) HYPERTENSION 01/25/2019 YAKOV MARTIN M NEY [place] R07.9 CHEST PAIN, UNSPECIFIED Procedures There is no data. Results Test [...] NRG Blood erythrocyte morphology finding identification NORMAL NRG Comprehensive metabolic panel - 04/12/18 14:29 Serum [...] ng/mL <100 medMATCH Desmethyltram CONSISTENT NRG Tramadol 19594 ng/mL <100 medMATCH Tramadol CONSISTENT NRG Influenza [...] 11/04/18 04:25 BNP level 256.8 pg/mL <100.0 Complete blood count (CBC) with automated white blood cell (WBC) differential - 11/26/18 12:49 Blood leukocytes automated count (number/volume) 9.9 10*3/uL 4.3-11.0 Blood erythrocytes automated count (number/volume) 4.44 10*6/uL 4.35-5.85 Venous blood hemoglobin measurement (mass/volume) 13.6 g/dL 13.3-17.7 Blood hematocrit (volume fraction) 39 % 40-54 Automated erythrocyte mean corpuscular volume 87 [foz_us] 80-99 Automated erythrocyte mean corpuscular hemoglobin (mass per erythrocyte) 31 pg 25-34 Automated erythrocyte mean corpuscular hemoglobin concentration measurement ( mass/volume) 35 g/dL 32-36 Automated erythrocyte distribution width ratio 14.2 % 10.0-14.5 Automated blood platelet count (count/volume) 203 10*3/uL 130-400 Automated blood platelet mean volume measurement 9.8 [foz_us] 7.4-10.4 Automated blood neutrophils/100 leukocytes 77 % 42-75 Automated blood lymphocytes/100 leukocytes 11 % 12-44 Blood monocytes/100 leukocytes 10 % 0-12 Automated blood eosinophils/100 leukocytes 1 % 0-10 Automated blood basophils/100 leukocytes 0 % 0-10 Blood neutrophils automated count (number/volume) 7.6 10*3 1.8-7.8 Blood lymphocytes automated count (number/volume) 1.1 10*3 1.0-4.0 Blood monocytes automated count (number/volume) 1.0 10*3 0.0-1.0 Automated eosinophil count 0.1 10*3/uL 0.0-0.3 Automated blood basophil count (count/volume) 0.0 10*3/uL 0.0-0.1 PT panel in platelet poor plasma by coagulation assay - 11/26/18 12:49 Prothrombin time (PT) in platelet poor plasma by coagulation assay 13.0 s 12.2-14.7 INR in platelet poor plasma or blood by coagulation assay 1.0 0.8-1.4 Activated partial thromboplastin time (aPTT) in platelet poor plasma bycoagulation assay - 11/26/18 12:49 Activated partial thromboplastin time (aPTT) in platelet poor plasma bycoagulation assay 30 s 24-35 Blood lactic acid measurement (moles/volume) - 11/26/18 12:49 Blood lactic acid measurement (moles/volume) 1.31 mmol/L 0.50-2.00 Comprehensive metabolic panel - 11/26/18 12:49 Serum or plasma sodium measurement (moles/volume) 135 mmol/L 135-145 Serum or plasma potassium measurement (moles/volume) 4.2 mmol/L 3.6-5.0 Serum or plasma chloride measurement (moles/volume) 100 mmol/L 98-107 Carbon dioxide 25 mmol/L 21-32 Serum or plasma anion gap determination (moles/volume) 10 mmol/L 5-14 Serum or plasma urea nitrogen measurement (mass/volume) 9 mg/dL 7-18 Serum or plasma creatinine measurement (mass/volume) 0.81 mg/dL 0.60-1.30 Serum or plasma urea nitrogen/creatinine mass ratio 11 NRG Serum or plasma creatinine measurement with calculation of estimated glomerular filtration rate > NRG Serum or plasma glucose measurement (mass/volume) 176 mg/dL 70-105 Serum or plasma calcium measurement (mass/volume) 9.4 mg/dL 8.5-10.1 Serum or plasma total bilirubin measurement (mass/volume) 0.8 mg/dL 0.1-1.0 Serum or plasma alkaline phosphatase measurement (enzymatic activity/volume) 78 U/L 40-136 Serum or plasma aspartate aminotransferase measurement (enzymatic activity/ volume) 17 U/L 5-34 Serum or plasma alanine aminotransferase measurement (enzymatic activity/volume ) 13 U/L 0-55 Serum or plasma protein measurement (mass/volume) 6.4 g/dL 6.4-8.2 Serum or plasma albumin measurement (mass/volume) 3.7 g/dL 3.2-4.5 CALCIUM CORRECTED 9.6 mg/dL 8.5-10.1 Serum or plasma troponin i.cardiac measurement (mass/volume) - 11/26/18 12:49 Serum or plasma troponin i.cardiac measurement (mass/volume) < ng/ mL <0.028 Bacterial blood culture - 11/26/18 12:49 Bacterial blood culture NG NRG Bacterial blood culture - 11/26/18 13:05 Bacterial blood culture NG NRG Complete urinalysis with reflex to culture - 11/26/18 13:10 Urine color determination YELLOW NRG Urine clarity determination CLEAR NRG Urine pH measurement by test strip 8 5-9 Specific gravity of urine by test strip 1.010 1.016- 1.022 Urine protein assay by test strip, semi-quantitative 1+ NEGATIVE Urine glucose detection by automated test strip 2+ NEGATIVE Erythrocytes detection in urine sediment by light microscopy NEGATIVE NEGATIVE Urine ketones detection by automated test strip NEGATIVE NEGATIVE Urine nitrite detection by test strip NEGATIVE NEGATIVE Urine total bilirubin detection by test strip NEGATIVE NEGATIVE Urine urobilinogen measurement by automated test strip (mass/volume) 1 mg/dL NORMAL Urine leukocyte esterase detection by dipstick NEGATIVE NEGATIVE Automated urine sediment erythrocyte count by microscopy (number/high power field) NONE NRG Automated urine sediment leukocyte count by microscopy (number/high power field ) NONE NRG Bacteria detection in urine sediment by light microscopy TRACE NRG Crystals detection in urine sediment by light microscopy NONE NRG Casts detection in urine sediment by light microscopy NONE NRG Mucus detection in urine sediment by light microscopy NEGATIVE NRG Complete urinalysis with reflex to culture NO NRG Bacterial urine culture - 11/26/18 13:10 Bacterial urine culture NG NRG Arterial blood gas measurement - 11/26/18 13:18 Blood pCO2 39 mm[Hg] 35-45 Blood pO2 71 mm[Hg] 79-93 Arterial blood bicarbonate measurement (moles/volume) 27 mmol/L 23-27 Arterial blood base excess by calculation 3.1 mmol/L -2.5 -2.5 Arterial blood oxygen saturation measurement 96 % 94-100 * Inhaled oxygen flow rate 3 NRG Arterial blood pH measurement with patient temperature correction 7.45 7.37-7.43 Arterial blood carbon dioxide, total measurement (moles/volume) 28.4 mmol/L 21.0-31.0 Body site RIGHT RAD NRG Assessment of wrist artery patency prior to arterial puncture YES- POS NRG Setting of ventilation mode NO NRG Measurement of body temperature 96.2 NRG Sputum Gram stain - 11/26/18 13:29 Sputum Gram stain relevant, interpret with caution NRG Bacterial sputum culture - 11/26/18 13:29 QUANTITY OF GROWTH . NRG Bacterial sputum culture USUAL RESP NRG Serum or plasma troponin i.cardiac measurement (mass/volume) - 11/26/18 15:03 Serum or plasma troponin i.cardiac measurement (mass/volume) < ng/ mL <0.028 Encounters ACCT No. Visit Date/Time Discharge Status Pt. Type Provider Facility Loc./Unit Complaint [id number] 01/05/2019 08:06:00 01/05/2019 23:59:59 CLS Outpatient Frankie NAGY MD [facility] CARD CHEST PAIN AT REST [id number] 01/04/2019 15:47:00 01/04/2019 23:59:59 CLS Outpatient MANJEET VELAZQUEZ APRN [facility] RT PNEUMONIA,SEPSIS, HYPOXEMIA,DYPSNEA [id number] 12/30/2018 10:56:00 12/30/2018 23:59:59 CLS Outpatient Frankie NAGY MD [facility] CARD CHEST PAIN AT REST [id number] 12/05/2018 09:22:00 12/05/2018 23:59:59 CLS Outpatient ANNETTE CINTRON MD [facility] PULM PHEUMONIA [id number] 11/26/2018 12:29:00 11/26/2018 16:03:00 DIS Emergency JASAPL ALONSO MD [facility] ER COUGH [id number] 10/31/2018 08:00:00 11/04/2018 12:35:00 DIS Inpatient ANNETTE CINTRON MD [facility] 4TH SEVERE SEPSIS;BIBASILAR PNEUMONIA;RESP FAILURE [id number] 04/12/2018 14:06:00 04/12/2018 16:28:00 DIS Emergency HARIS MARTIN, FARRAH Avalos [facility] ER PAIN ON LEFT SIDE, FREQ FALLS [id number] 02/19/2018 03:10:00 02/19/2018 03:48:00 DIS Emergency FARRAH CARBALLO MD [facility] ER DENTAL PAIN [id number] 02/18/2018 20:59:00 02/18/2018 21:18:00 DIS Emergency JITENDRA RUBIO COTTAGE PARENT [facility] ER JAW PAIN [id number] 02/18/2018 10:02:00 02/18/2018 10:25:00 DIS Emergency JITENDRA RUBIO COTTAGE PARENT [facility] ER DENTAL/RIGHT ARM PAIN [id number] 06/23/2016 00:10:00 06/23/2016 23:59:59 CLS Preadmit ANDRÉS JAIN MD [facility] ONC [id number] 04/14/2016 13:46:00 06/22/2016 00:01:00 DIS Outpatient ANDRÉS JAIN MD [facility] ONC [id number] 03/23/2016 13:46:00 03/23/2016 00:01:00 DIS Outpatient ANDRÉS JAIN MD [facility] ONC [id number] 11/26/2014 00:40:00 11/26/2014 12:14:00 DIS Inpatient RENO ELDER MD [facility] 4TH NEUROLOGICAL IMPAIRMENT LEFT VISION LOSS [id number] 11/23/2014 09:34:00 11/23/2014 12:20:00 DIS Emergency JITENDRA RUBIO APRN [facility] ER MIGRAINE [id number] 02/07/2014 12:48:00 02/16/2014 13:25:00 DIS Outpatient CHERISE MARTIN, PAUL Saldaña [facility] REHAB S/P RT WRIST PROXIMAL ROW CARPECTOMY [id number] 02/02/2019 13:00:00 PEN Preadmit YAKOV MARTIN, Frankie BREWSTER [facility] CATH CHEST PAIN, ABN NUC STRESS TEST [id number] 11/10/2018 11:15:00 11/10/2018 23:59:59 CLS Outpatient LORA JUSTIN APRN [facility] [id number] 07/08/2018 14:20:00 Document Registration
[2019-02-02 11:26] VITALS: BP 143/81
[2019-02-02 11:41] LABS: HEMOGLOBIN 15.9 G/DL (13.3-17.7); MEAN PLATELET VOLUME 11.1 FL (7.4-10.4); RED CELL DISTRIBUTION WIDTH 13.5 % (10.0-14.5); WHITE BLOOD COUNT 6.6 10^3/uL (4.3-11.0)
[2019-02-02 11:52] LABS: PROTHROMBIN TIME PATIENT 13.3 SEC (12.2-14.7)
[2019-02-02 11:56] LABS: ALANINE AMINOTRANSFERASE 16 U/L (0-55); ALBUMIN 4.4 GM/DL (3.2-4.5); ALKALINE PHOSPHATASE 66 U/L (40-136); BILIRUBIN,TOTAL 0.9 MG/DL (0.1-1.0); BUN/CREATININE RATIO 17; CARBON DIOXIDE 25 MMOL/L (21-32); CHLORIDE 104 MMOL/L (98-107); CREATININE SERUM 0.88 MG/DL (0.60-1.30); GFR ESTIMATED > 60; GLUCOSE 112 MG/DL (70-105); POTASSIUM 4.4 MMOL/L (3.6-5.0); SODIUM 138 MMOL/L (135-145); TOTAL PROTEIN 7.3 GM/DL (6.4-8.2)
[2019-02-02] MEDS ORDERED: BICA50TA5 PO (12:16)
[2019-02-02] MEDS ORDERED: CETI10TA20 PO (12:16)
--- NOTE | 2019-02-02 12:36 | NUR ---
SPOKE WITH THE PATIENT ABOUT HIS MEDICATIONS. HE DID NOT BRING A LIST OR HIS BOTTLES WITH HIM. WE WENT OVER THE LIST IN THE COMPUTER WELL THE LIST FROM THE OFFICE. THE LIST FROM THE OFFICE HAS LISINOPRIL HCTZ 12.5-20MG 2 TABS DAILY, ORDERED 11-30-[address] NAGY HOWEVER THE PATIENT DOES NOT THINK HE IS TAKING 2 DAILY OF THIS MEDICATION. IN THIS SCRIPT WAS SENT TO [facility], I CALLED [facility] AND THEY STATE IT HAS NOT BEEN PICKED UP YET, IT IS STILL READY THERE AT THE PHARMACY. THE PATIENT NORMALLY GETS HIS MEDICATIONS THROUGH THE [place]. HE WAS NOT AWARE THE DOSE WAS CHANGED. I LEFT IT 1 DAILY ON THE MED REC AT THIS TIME AND PATIENT STATES HE WILL DISCUSS WITH THE DR. BICALUTAMIDE 50MG DAILY IS ALSO ON THE LIST FROM THE OFFICE HOWEVER THE PATIENT STATES HE IS NO LONGER TAKING IT. I REQUESTED A LIST OF RECENTLY FILLED MEDICATIONS TO BE FAXED OVER FROM THE [facility] FOR VERIFICATION AND WHEN THAT IS RECEIVED I WILL UPDATE THE MED REC AND THIS NOTE IF NECESSARY. Addendum: 02/02/19 at 1324 by MARGARITA SOUZA [facility] SENT OVER THE MEDICATION LIST AT THIS TIME. 11-18-18 LISINOPRIL HCTZ 20-25 1 DAILY 11-18-18 PROPRANOLOL 10MG BID ATORVASTATIN 80MG DAILY PLAVIX 75MG DAILY [facility] FILLED: TRAMADOL 50MG #168 FOR A 28 DAY SUPPLY ACCORDING TO [employer] [facility]: ZYRTEC 10MG DAILY BIOTIN DAILY GINKGO BILOBA DAILY [employer] DAILY
--- NOTE | 2019-02-02 13:41 | NUR ---
DURING COURSE OF STAY PATIENT WANTED TO SPEAK WITH DOCTOR BEFORE SIGNING CONSENT, STATING "HE DID NOT WANT A STENT PLACED". DOCTOR TO PATIENT ROOM ALONG WITH THIS RN TO DISCUSS PROCEDURE, RISKS, ETC. DR. NAGY EXPLAINED AT LENGTH TO PATIENT WHAT TO EXPECT FROM PROCEDURE, RISKS, BENEFITS, ETC. PATIENT REFUSED TO HAVE PROCEDURE DONE AT THIS TIME. DR. NAGY AGAIN EXPLAINED THE RISKS OF NOT HAVING THE PROCEDURE DONE. PATIENT IN AGREEANCE HE KNOWS AND UNDERSTANDS THE RISKS. HE WILL SEE IN OFFICE IN ABOUT 3-4 WEEKS. INSTRUCTIONS FROM TO PATIENT TO CALL OFFICE OR REPORT TO ER WITH ANY EPISODES OF CHEST PAIN. PATIENT VERBALIZED UNDERSTANDING. IV REMOVED BY THIS RN. DRESSING APPLIED. PATIENT DISMISSED.
--- NOTE | 2019-02-02 15:12 | Cardiology Progress Note ---
Cardiology SOAP Progress Note Objective: I&O/Vital Signs 02/02/19 11:26 Temp 98.0 Pulse 56 Resp 18 B/P (MAP) 143/81 (101) Pulse Ox 97 O2 Delivery Room Air Weight (Pounds): 188 Weight (Ounces): 0.0 Weight (Calculated Kilograms): 85.568266 Results/Procedures: Labs Laboratory Tests 02/02/19 11:30: White Blood Count 6.6, Red Blood Count 5.05, Hemoglobin 15.9, Hematocrit 43, Mean Corpuscular Volume 86, Mean Corpuscular Hemoglobin 32, Mean Corpuscular Hemoglobin Concent 37H, Red Cell Distribution Width 13.5, Platelet Count 184, Mean Platelet Volume 11.1H, Prothrombin Time 13.3, INR Comment 1.0, Activated Partial Thromboplast Time 28, Sodium Level 138, Potassium Level 4.4, Chloride Level 104, Carbon Dioxide Level 25, Anion Gap 9, Blood Urea Nitrogen 15, Creatinine 0.88, Estimat Glomerular Filtration Rate > 60, BUN/Creatinine Ratio 17, Glucose Level 112H, Calcium Level 10.0, Corrected Calcium 9.7, Total Bilirubin 0.9, Aspartate Amino Transf (AST/SGOT) 19, Alanine Aminotransferase ( ALT/SGPT) 16, Alkaline Phosphatase 66, Total Protein 7.3, Albumin 4.4 A/P: Assessment/Dx: I discussed at length with the patient since the patient did not want to consent for a balloon and a stent or any intervention. I discussed with him that if he has severe disease we will need to go ahead with balloon and stenting during the same procedure. If he does not want any intervention but wants to discuss with me first, we will have to take him off the table and let the sedation wear off before discussion and to take informed consent. The patient understands and tells me that he would not like to even get the coronary angiogram done. I discussed with him that with 1 previous ER visit for chest pain and abnormal nuclear stress test he is at risk for DE and even , he understands the risks associated with not performing coronary angiography. During the entire discussion I had my solder making laborer nurse Eufemia in the room. I did advise him to seek immediate medical attention if he has any further chest pain. I will also see him in the office in the next couple of weeks. Frankie NAGY MD Feb 02, 2019 15:12
== END 2019-02-02 13:50 | disposition home or self-care (01) ==
LOC: CATH 11:00
PROVIDERS: ATTEND Internal Medicine Interventional Cardiology
DX: R07.9 Chest pain, unspecified (principal); I11.9 Hypertensive heart disease without heart failure; E78.5 Hyperlipidemia, unspecified; I35.0 Nonrheumatic aortic (valve) stenosis; Z79.899 Other long term (current) drug therapy; Z11.2 Encounter for screening for other bacterial diseases; Z53.9 Procedure and treatment not carried out, unspecified reason
CPT/HCPCS: 36415; 80053; 85027; 85610; 85730; 87081

== ENCOUNTER 2019-03-02 15:30 | Outpatient (CLI) | payer MEDICARE, OTHER ==
[~2019-03-02] VITALS: Ht 182.9 cm; Wt 85.3 kg
[~2019-03-02 15:30] MED LIST changes: +BICA50TA5 PO; +CETI10TA20 PO
== END 2019-03-02 15:41 | disposition home or self-care (01) ==
LOC: PREOP 15:30
PROVIDERS: ATTEND Surgery
DX: Z01.818 Encounter for other preprocedural examination (principal)

== ENCOUNTER 2019-03-15 07:00 | Day surgery (SDC) | payer MEDICARE, OTHER ==
--- OUTSIDE RECORDS SUMMARY | 2019-03-14 09:46 | XMS REPORT | Continuity of Care Document ---
Author Organization Unknown Address Unknown Allergies Active Description Code Type Severity Reaction Onset Reported/Identified Relationship to Patient Clinical Status Yes No Known Drug Allergies [id number] Drug Allergy Unknown N/A 11/23/2014 Medications There [...] S 02/18/2018 JITENDRA RUBIO APRN Ot Z79.82 PSYCHOLOGIST ENGINEERING (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 02/18/2018 JITENDRA RUBIO [...] PAIN 02/18/2018 JITENDRA RUBIO APRN Ot Z79.82 PSYCHOLOGIST ENGINEERING (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 02/18/2018 JITENDRA RUBIO [...] MD Ot M19.90 UNSPECIFIED OSTEOARTHRITIS, UNSPECIFIED 02/19/2018 BRUEGGEMANN MD, FARRAH T Ot N40.0 BENIGN PROSTATIC HYPERPLASIA WITHOUT LOW 02/19/2018 FARRAH CARBALLO MD Ot Z79.82 LONGTERM (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 02/19/2018 FARRAH CARBALLO [...] PAIN 02/21/2018 JITENDRA RUBIO APRN Ot Z79.82 LONGTERM (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 02/21/2018 JITENDRA RUBIO [...] LOW 02/21/2018 FARRAH CARBALLO MD Ot Z79.82 PSYCHOLOGIST ENGINEERING (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 02/21/2018 FARRAH CARBALLO MD Ot Z86.73 PRSNL HX OF TIA (TIA), AND CEREB INFRC W 02/21/2018 FARRAH CARBALLO MD Ot Z98.890 OTHER SPECIFIED POSTPROCEDURAL STATES 02/24/2018 JITENDRA RUBIO APRN Ot I10 ESSENTIAL (PRIMARY) HYPERTENSION 02/24/2018 JITENDRA RUBIO APRN Ot K08.89 OTHER SPECIFIED DISORDERS OF TEETH AND S 02/24/2018 JITENDRA RUBIO APRN Ot Z79.82 LONGTERM (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 02/24/2018 JITENDRA RUBIO APRN Ot Z86.73 PRSNL HX OF TIA (TIA), AND CEREB INFRC W 02/24/2018 JITENDRA RUBIO CARBURETOR REPAIRER Ot Z87.19 PERSONAL HISTORY OF OTHER DISEASES OF TH 04/12/2018 FARRAH CARBALLO MD Ot I10 ESSENTIAL [...] ENCOUNTER 04/12/2018 FARRAH CARBALLO MD Ot Z79.82 LONGTERM (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 04/12/2018 FARRAH CARBALLO [...] ENCOUNTER 04/14/2018 FARRAH CARBALLO MD Ot Z79.82 LONGTERM (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 04/14/2018 FARRAH CARBALLO [...] PAIN 11/26/2018 JASPAL ALONSO MD Ot Z79.02 LONGTERM (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 OF ANTITHROMBOTI 11/26/2018 JASPAL ALONSO [...] I10 ESSENTIAL (PRIMARY) HYPERTENSION 11/29/2018 JASPAL ALONSO MD Ot J40 BRONCHITIS, NOT SPECIFIED ACUTE OR CH 11/29/2018 JASPAL ALONSO MD Ot M25.512 PAIN IN LEFT SHOULDER 11/29/2018 JASPAL ALONSO MD Ot R05 COUGH 11/29/2018 JASPAL ALONSO MD Ot R07.89 OTHER CHEST PAIN 11/29/2018 JASPAL ALONSO MD Ot Z79.02 PSYCHOLOGIST ENGINEERING (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 OF ANTITHROMBOTI 11/29/2018 JASPAL ALONSO MD Ot Z86.73 PRSNL HX OF TIA (TIA), AND CEREB INFRC W 11/29/2018 JASPAL ALONSO MD Ot Z87.448 PERSONAL HISTORY OF OTHER DISEASES OF UR 11/29/2018 JASPAL ALONSO MD Ot Z98.890 OTHER SPECIFIED POSTPROCEDURAL STATES 01/02/2019 Frankie NAGY MD Ot E78.5 HYPERLIPIDEMIA, UNSPECIFIED 01/02/2019 Frankie NAGY MD Ot I10 ESSENTIAL (PRIMARY) HYPERTENSION 01/02/2019 Frankie NAGY MD Ot I35.0 NONRHEUMATIC AORTIC (VALVE) STENOSIS 01/02/2019 YAKOV MARTIN, Frankie BREWSTER Ot R07.9 CHEST PAIN, UNSPECIFIED 01/05/2019 MANJEET [...] Ot R07.9 CHEST PAIN, UNSPECIFIED 01/11/2019 Frankie ANGY MD Ot E78.5 HYPERLIPIDEMIA, UNSPECIFIED 01/11/2019 Frankie [...] A41.9 SEPSIS, UNSPECIFIED ORGANISM 01/25/2019 MANJEET VELAZQUEZ CARBURETOR REPAIRER Ot J18.9 PNEUMONIA, UNSPECIFIED ORGANISM 01/25/2019 MANJEET VELAZQUEZ CARBURETOR REPAIRER Ot J30.2 OTHER SEASONAL ALLERGIC RHINITIS 01/25/2019 MANJEET VELAZQUEZ CARBURETOR REPAIRER Ot R06.00 DYSPNEA, UNSPECIFIED 01/25/2019 MANJEET VELAZQUEZ CARBURETOR REPAIRER Ot R09.02 HYPOXEMIA 01/25/2019 Frankie NAGY MD Ot E78.5 HYPERLIPIDEMIA, UNSPECIFIED 01/25/2019 Frankie NAGY MD Ot I10 ESSENTIAL (PRIMARY) HYPERTENSION 01/25/2019 Frankie NAGY MD Ot R07.9 CHEST PAIN, UNSPECIFIED 02/02/2019 Frankie NAGY MD Ot E78.5 HYPERLIPIDEMIA, UNSPECIFIED 02/02/2019 Frankie NAGY MD Ot I11.9 HYPERTENSIVE HEART DISEASE WITHOUT HEART 02/02/2019 Frankie NAGY MD Ot I35.0 NONRHEUMATIC AORTIC (VALVE) STENOSIS 02/02/2019 Frankie NAGY MD Ot R07.9 CHEST PAIN, UNSPECIFIED 02/02/2019 Frankie NAGY MD Ot Z11.2 ENCOUNTER FOR SCREENING FOR OTHER BACTER 02/02/2019 Frankie NAGY MD Ot Z53.9 PROCEDURE AND TREATMENT NOT CARRIED OUT, 02/02/2019 Frankie NAGY MD Ot Z79.899 OTHER LONGTERM (CURRENT) DRUG THERAPY 02/05/2019 Frankie NAGY MD Ot E78.5 HYPERLIPIDEMIA, UNSPECIFIED 02/05/2019 Frankie NAGY MD Ot I11.9 HYPERTENSIVE HEART DISEASE WITHOUT HEART 02/05/2019 Frankie NAGY MD Ot I35.0 NONRHEUMATIC AORTIC (VALVE) STENOSIS 02/05/2019 Frankie NAGY MD Ot R07.9 CHEST PAIN, UNSPECIFIED 02/05/2019 Frankie NAGY MD Ot Z11.2 ENCOUNTER FOR SCREENING FOR OTHER BACTER 02/05/2019 Frankie NAGY MD Ot Z53.9 PROCEDURE AND TREATMENT NOT CARRIED OUT, 02/05/2019 Frankie NAGY MD Ot Z79.899 OTHER LONGTERM (CURRENT) DRUG THERAPY 02/07/2019 MANJEET VELAZQUEZ APRN Ot A41.9 SEPSIS, UNSPECIFIED ORGANISM 02/07/2019 MANJEET VELAZQUEZ APRN Ot J18.9 PNEUMONIA, UNSPECIFIED ORGANISM 02/07/2019 MANJEET VELAZQUEZ APRN Ot J30.2 OTHER SEASONAL ALLERGIC RHINITIS 02/07/2019 MANJEET VELAZQUEZ APRN Ot R06.00 DYSPNEA, UNSPECIFIED 02/07/2019 MANJEET VELAZQUEZ APRN Ot R09.02 HYPOXEMIA 02/07/2019 Frankie NAGY MD Ot E78.5 HYPERLIPIDEMIA, UNSPECIFIED 02/07/2019 Frankie NAGY MD Ot I10 ESSENTIAL (PRIMARY) HYPERTENSION 02/07/2019 Frankie NAGY MD Ot I35.0 NONRHEUMATIC AORTIC (VALVE) STENOSIS 02/07/2019 Frankie NAGY MD Ot R07.9 CHEST PAIN, UNSPECIFIED 02/20/2019 Frankie NAGY MD Ot E78.5 HYPERLIPIDEMIA, UNSPECIFIED 02/20/2019 Frankie NAGY MD Ot I10 ESSENTIAL (PRIMARY) HYPERTENSION 02/20/2019 Frankie NAGY MD Ot R07.9 CHEST PAIN, UNSPECIFIED 03/01/2019 SRAVAN ANDERSON DO Ot Z01.818 ENCOUNTER FOR OTHER PREPROCEDURAL EXAMIN 03/01/2019 SRAVAN ANDERSON DO Ot Z01.818 ENCOUNTER FOR OTHER PREPROCEDURAL EXAMIN 03/02/2019 SRAVAN ANDERSON DO Ot Z01.818 ENCOUNTER FOR OTHER PREPROCEDURAL EXAMIN 03/02/2019 SRAVAN ANDERSON DO Ot Z01.818 ENCOUNTER FOR OTHER PREPROCEDURAL EXAMIN 03/05/2019 ANNETTE CINTRON MD Ot J18.9 PNEUMONIA, UNSPECIFIED ORGANISM 03/05/2019 ANNETTE CINTRON MD Ot J96.01 ACUTE RESPIRATORY FAILURE WITH HYPOXIA 03/06/2019 ANNETTE CINTRON MD Ot J18.9 PNEUMONIA, UNSPECIFIED ORGANISM 03/06/2019 ANNETTE CINTRON MD Ot J96.01 ACUTE RESPIRATORY FAILURE WITH HYPOXIA Procedures There is no data. Results Test [...] ng/mL <100 medMATCH Desmethyltram CONSISTENT NRG Tramadol 60926 ng/mL <100 medMATCH Tramadol CONSISTENT NRG Influenza [...] i.cardiac measurement (mass/volume) < ng/ mL <0.028 Automated blood complete blood count (hemogram) panel - 04/04/19 11:30 Blood leukocytes automated count (number/volume) 6.6 10*3/uL 4.3-11.0 Blood erythrocytes automated count (number/volume) 5.05 10*6/uL 4.35-5.85 Venous blood hemoglobin measurement (mass/volume) 15.9 g/dL 13.3-17.7 Blood hematocrit (volume fraction) 43 % 40-54 Automated erythrocyte mean corpuscular volume 86 [foz_us] 80-99 Automated erythrocyte mean corpuscular hemoglobin (mass per erythrocyte) 32 pg 25-34 Automated erythrocyte mean corpuscular hemoglobin concentration measurement ( mass/volume) 37 g/dL 32-36 Automated erythrocyte distribution width ratio 13.5 % 10.0-14.5 Automated blood platelet count (count/volume) 184 10*3/uL 130-400 Automated blood platelet mean volume measurement 11.1 [foz_us] 7.4-10.4 PT panel in platelet poor plasma by coagulation assay - 02/02/19 11:30 Prothrombin time (PT) in platelet poor plasma by coagulation assay 13.3 s 12.2-14.7 INR in platelet poor plasma or blood by coagulation assay 1.0 0.8-1.4 Activated partial thromboplastin time (aPTT) in platelet poor plasma bycoagulation assay - 02/02/19 11:30 Activated partial thromboplastin time (aPTT) in platelet poor plasma bycoagulation assay 28 s 24-35 Comprehensive metabolic panel - 02/02/19 11:30 Serum or plasma sodium measurement (moles/volume) 138 mmol/L 135-145 Serum or plasma potassium measurement (moles/volume) 4.4 mmol/L 3.6-5.0 Serum or plasma chloride measurement (moles/volume) 104 mmol/L 98-107 Carbon dioxide 25 mmol/L 21-32 Serum or plasma anion gap determination (moles/volume) 9 mmol/L 5-14 Serum or plasma urea nitrogen measurement (mass/volume) 15 mg/dL 7-18 Serum or plasma creatinine measurement (mass/volume) 0.88 mg/dL 0.60-1.30 Serum or plasma urea nitrogen/creatinine mass ratio 17 NRG Serum or plasma creatinine measurement with calculation of estimated glomerular filtration rate > NRG Serum or plasma glucose measurement (mass/volume) 112 mg/dL 70-105 Serum or plasma calcium measurement (mass/volume) 10.0 mg/dL 8.5-10.1 Serum or plasma total bilirubin measurement (mass/volume) 0.9 mg/dL 0.1-1.0 Serum or plasma alkaline phosphatase measurement (enzymatic activity/volume) 66 U/L 40-136 Serum or plasma aspartate aminotransferase measurement (enzymatic activity/ volume) 19 U/L 5-34 Serum or plasma alanine aminotransferase measurement (enzymatic activity/volume ) 16 U/L 0-55 Serum or plasma protein measurement (mass/volume) 7.3 g/dL 6.4-8.2 Serum or plasma albumin measurement (mass/volume) 4.4 g/dL 3.2-4.5 CALCIUM CORRECTED 9.7 mg/dL 8.5-10.1 Methicillin resistant Staphylococcus aureus (MRSA) screening culture - 11:30 Methicillin resistant Staphylococcus aureus (MRSA) screening culture NEG NRG Encounters ACCT No. Visit Date/Time Discharge Status Pt. Type Provider Facility Loc./Unit Complaint [id number] 03/07/2019 10:40:00 03/07/2019 23:59:59 CLS Preadmit SRAVAN ANDERSON DO Via [facility] ENDO DYSPHAGIA [id number] 03/06/2019 13:00:00 03/06/2019 23:59:59 CLS Preadmit ANNETTE CINTRON MD Via [facility] [id number] 12/05/2018 09:22:00 03/05/2019 00:01:00 DIS Outpatient ANNETTE CINTRON MD [facility] [id number] 03/02/2019 15:30:00 03/02/2019 15:41:00 DIS Outpatient SRAVAN ANDERSON DO [facility] PREOP EGD [id number] 02/02/2019 11:00:00 02/02/2019 13:50:00 DIS Outpatient Frankie NAGY MD [facility] CATH CHEST PAIN, ABN NUC STRESS TEST [id number] 01/05/2019 08:06:00 01/05/2019 23:59:59 CLS Outpatient Frankie NAGY MD [facility] CARD CHEST PAIN AT REST [id number] 01/04/2019 15:47:00 01/04/2019 23:59:59 CLS Outpatient MANJEET VELAZQUEZ APRN [facility] RT PNEUMONIA,SEPSIS, HYPOXEMIA,DYPSNEA [id number] 12/30/2018 10:56:00 12/30/2018 23:59:59 CLS Outpatient Frankie NAGY MD [facility] CARD CHEST PAIN AT REST [id number] 11/26/2018 12:29:00 11/26/2018 16:03:00 DIS Emergency CELESTE MARTIN, JASPAL Renner [facility] ER COUGH [id number] 10/31/2018 08:00:00 11/04/2018 12:35:00 DIS Inpatient ABDULAZIZ MARTIN, ANNETTE David Via [address] SEVERE SEPSIS;BIBASILAR PNEUMONIA;RESP FAILURE [id number] 04/12/2018 14:06:00 04/12/2018 16:28:00 DIS Emergency FARRAH CARBALLO MD [facility] ER PAIN ON LEFT SIDE, FREQ FALLS [id number] 02/19/2018 03:10:00 02/19/2018 03:48:00 DIS Emergency FARRAH CARBALLO MD [facility] ER DENTAL PAIN [id number] 02/18/2018 20:59:00 02/18/2018 21:18:00 DIS Emergency JITENDRA RUBIO CARBURETOR REPAIRER [facility] ER JAW PAIN [id number] 02/18/2018 10:02:00 02/18/2018 10:25:00 DIS Emergency JITENDRA RUBIO CARBURETOR REPAIRER [facility] ER DENTAL/RIGHT ARM PAIN [id number] 06/23/2016 00:10:00 06/23/2016 23:59:59 CLS Preadmit ANDRÉS JAIN MD [facility] ONC [id number] 04/14/2016 13:46:00 06/22/2016 00:01:00 DIS Outpatient ANDRÉS JAIN MD [facility] ONC [id number] 03/23/2016 13:46:00 03/23/2016 00:01:00 DIS Outpatient CRISTOBAL MARTIN, ANDRÉS Jones [facility] ONC [id number] 11/26/2014 00:40:00 11/26/2014 12:14:00 DIS Inpatient JERROD MARTIN, RENO Renner [facility] 4TH NEUROLOGICAL IMPAIRMENT LEFT VISION LOSS [id number] 11/23/2014 09:34:00 11/23/2014 12:20:00 DIS Emergency JITENDRA RUBIO APRN [facility] ER MIGRAINE [id number] 02/07/2014 12:48:00 02/16/2014 13:25:00 DIS Outpatient CHERISE MARTIN, PAUL Saldaña [facility] REHAB S/P RT WRIST PROXIMAL ROW CARPECTOMY [id number] 11/10/2018 11:15:00 11/10/2018 23:59:59 CLS Outpatient LORA JUSTIN APRN [facility] [id number] 07/08/2018 14:20:00 Document Registration
[~2019-03-15] VITALS: Ht 182.9 cm; Wt 85.3 kg
[~2019-03-15 07:00] MED LIST changes: +HURRICAINE EXT TUBE (BENZOCAINE) XX PRN; +LACTATED RINGERS 1,000 ML IV STA
[2019-03-15 07:22] VITALS: BP 158/84
[2019-03-15] MEDS ORDERED: MIDAZOLAM 2 MG/2 ML (VERSED) VIAL ONE (07:31)
[2019-03-15] MEDS ORDERED: PROPOFOL INJECTION 50 ML IV ONE (07:31)
--- NOTE | 2019-03-15 07:49 | Progress Note-Pre Operative ---
Pre-Operative Progress Note H&P Reviewed The H&P was reviewed, patient examined and no changes noted. Date Seen by Provider: March 15, 2019 Time Seen by Provider: 07:46 Date H&P Reviewed: March 15, 2019 Time H&P Reviewed: 07:46 Pre-Operative Diagnosis: gerd, dysphagia SRAVAN ANDERSON DO March 15, 2019 07:49
--- NOTE | 2019-03-15 08:14 | Progress Note-Post Operative ---
Post-Operative Progess Note Surgeon (s)/Radiographer Cardiac Catheterization (s) Surgeon SRAVAN ANDERSON DO Radiographer Cardiac Catheterization: na Pre-Operative Diagnosis gerd, dysphagia Post-Operative Diagnosis hiatal hernia, healing ulcer, gastritis, duodenitis Procedure & Operative Findings Date of Procedure 03/15/19 Procedure Performed/Findings egd c biopsies Anesthesia Type per eviscerator Estimated Blood Loss Estimated blood loss (mL): none Specimens/Packing Specimens Removed na SRAVAN ANDERSON DO March 15, 2019 08:14
[2019-03-15] MEDS ORDERED: SUCR1TAB36 PO (08:15)
[2019-03-15] MEDS ORDERED: PANT40TA2 PO (08:15)
[2019-03-15] MEDS ORDERED: HURRICAINE EXT TUBE (BENZOCAINE) ONE (08:15)
--- NOTE | 2019-03-15 08:17 | Discharge Inst-Simple/Standard ---
Discharge Inst-Standard Discharge Medications New, Converted or Re-Newed RX: RX on Chart Patient Instructions/Follow Up Plan of Care/Instructions/FU: 3 weeks David Activity as Tolerated: Yes Discharge Diet: Regular Diet SRAVAN ANDERSON DO March 15, 2019 08:17
[2019-03-15 08:25] VITALS: BP 143/67
[2019-03-15 08:55] VITALS: BP 153/83
[2019-03-15 09:25] VITALS: BP 153/83
--- NOTE | 2019-03-15 10:52 | OPERATIVE REPORT ---
DATE OF SERVICE: 03/15/2019 PREOPERATIVE DIAGNOSES: Gastroesophageal reflux disease and dysphagia. POSTOPERATIVE DIAGNOSES: Hiatal hernia, duodenitis, gastritis, healing ulcers. PROCEDURE: EGD with biopsy. SURGEON: Sravan Hernandez DO ANESTHESIA: Per ED TRANSPORTER. ESTIMATED BLOOD LOSS: None. COMPLICATIONS: None. INDICATIONS: The patient is a 68-year-old male with dysphagia and reflux symptoms. He understands risks and benefits of procedure and wished to proceed with procedure. Consent was signed on the chart. DESCRIPTION OF PROCEDURE: The patient was taken to the endoscopy suite, placed in left lateral recumbent position. Timeout was performed. Scope was inserted in mouth, down the esophagus, stomach and into the duodenum without difficulty. Second portion of duodenum had normal appearance. No polyps, mass or ulcerations. First portion had erythematous changes and small ulceration. Biopsy of the duodenum was obtained. Scope was slowly retracted back into the stomach where it was further insufflated. Erythematous changes with small healing ulcers present. Biopsy of the antrum and body were obtained. Scope was retroflexed noting a hiatal hernia. No other pathology noted. Scope was then returned to its normal position, slowly withdrawn to the distal esophagus. Some slight erythematous changes. No polyps, masses or ulcerations. Biopsy of the GE junction was obtained. Scope was then slowly retracted back until completely removed, noting no other pathology. The patient tolerated procedure well without any complications and taken to recovery room in stable condition. RECOMMENDATIONS: The patient will be started on Protonix 40 mg daily and Carafate 1 gram four times a day. He will follow up in the office in three weeks to discuss pathology to see how his symptoms are doing at that time. Job ID: [id number] DocumentID: [id number] Dictated Date: 03/15/2019 08:19:52 Oncology Patient Navigator Date: 03/15/2019 10:51:40 Dictated By: SRAVAN HERNANDEZ DO [facility]
== END 2019-03-15 09:25 | disposition home or self-care (01) ==
LOC: ENDO 07:00
PROVIDERS: ATTEND Surgery
DX: K29.70 Gastritis, unspecified, without bleeding (principal); K29.80 Duodenitis without bleeding; K44.9 Diaphragmatic hernia without obstruction or gangrene; K25.9 Gastric ulcer, unspecified as acute or chronic, without hemorrhage or perforation; K21.9 Gastro-esophageal reflux disease without esophagitis; I11.9 Hypertensive heart disease without heart failure; N40.0 Benign prostatic hyperplasia without lower urinary tract symptoms; M19.91 Primary osteoarthritis, unspecified site; E78.5 Hyperlipidemia, unspecified; I35.0 Nonrheumatic aortic (valve) stenosis; F10.20 Alcohol dependence, uncomplicated; Z86.73 Personal history of transient ischemic attack (TIA), and cerebral infarction without residual deficits; Z87.01 Personal history of pneumonia (recurrent); Z79.899 Other long term (current) drug therapy

== ENCOUNTER 2019-08-23 11:42 | Emergency (ER) | payer MEDICARE, OTHER ==
[~2019-08-23] VITALS: Ht 182 cm; Wt 87.7 kg
[~2019-08-23 11:42] MED LIST changes: -HURRICAINE EXT TUBE (BENZOCAINE) XX PRN; -LACTATED RINGERS 1,000 ML IV STA; +PANT40TA2 PO; +SUCR1TAB36 PO
--- NOTE | 2019-08-23 12:54 | ED General ---
General Chief Complaint: General Problems/Pain Stated Complaint: RUNNY NOSE;SNEEZING;BOWEL ISSUES Nursing Triage Note: TO TRIAGE WITH MULTIPLE COMPLAINTS - TROUBLE SWALLOWING, SOA, RUNNY NOSE, SNEEZING, MULTIPLE PASTY STOOLS. PT THINKS HE IS IN SEPTIC SHOCK. Nursing Sepsis Screen: No Definite Risk History of Present Illness Date Seen by Provider: Aug 23, 2019 Time Seen by Provider: 11:55 Initial Comments 69 -year-old male presents for 3 soft stools today that he describes as paced deep but not diarrhea. Overall fatigue that started at approximately 1400 yesterday, increased sleep, and nasal congestion; he denies fever. He was admitted over a year ago for sepsis and was told if any symptoms present and he should come to the ER immediately. He has not taken any medications for diarrhea or fever. Associated Systoms: No Chest Pain; Cough (dry); No Diaphoresis, No Fever/Chills; Loss of Appetite, Malaise; No Nausea/Vomiting, No Rash, No Seizure, No Shortness of Air, No Syncope; Weakness Allergies and Home Medications Allergies Coded Allergies: No Known Drug Allergies (Unverified , 11/23/14) Home Medications Atorvastatin Calcium 80 Mg Tablet, 80 MG PO DAILY, (Reported) Biotin 1,000 Mcg Tablet, 1,000 MCG PO DAILY, (Reported) Cetirizine HCl 10 Mg Tablet, 10 MG PO DAILY, (Reported) Clopidogrel Bisulfate 75 Mg Tablet, 75 MG PO DAILY, (Reported) Ginkgo Biloba 120 Mg Tablet, 120 MG PO DAILY, (Reported) Lisinopril/Hydrochlorothiazide 1 Each Tablet, 1 TAB PO DAILY, (Reported) Multivitamin 1 Each Tablet, 1 TAB PO DAILY, (Reported) Pantoprazole Sodium 40 Mg Tablet.dr, 40 MG PO DAILY Prescribed by: SRAVAN ANDERSON on 03/15/19814 Propranolol HCl 10 Mg Tablet, 10 MG PO BID, (Reported) Sucralfate 1 Gm Tablet, 1 GM PO QID Prescribed by: SRAVAN ANDERSON on 03/15/19814 Tramadol HCl 50 Mg Tablet, 100 MG PO TID, (Reported) TAKES 2 (50MG) TABLETS Patient Home Medication List Home Medication List Reviewed: Yes Review of Systems Review of Systems Constitutional: see HPI; No diaphoresis, No dizziness, No fever; malaise Respiratory: no symptoms reported, see HPI; No cough Cardiovascular: no symptoms reported, see HPI Gastrointestinal: see HPI, diarrhea All Other Systems Reviewed Negative Unless Noted: Yes Past Bdwpxyf-Wbnrpw-Rjddgk Hx Patient Social History Alcohol Use: Occasionally Uses Alcohol Beverage of Choice: Beer Recreational Drug Use: No Smoking Status: Never a Smoker 2nd Hand Smoke Exposure: No Recent Foreign Travel: No Contact w/Someone Who Travel: No Recent Infectious Disease Expo: No Recent Hopitalizations: Yes ( - NOV 2018) Immunizations Up To Date Tetanus Booster (TDap): Unknown PED Vaccines UTD: Yes Seasonal Allergies Seasonal Allergies: No Past Medical History Surgeries: Yes (HERNIA REPAIR) Orthopedic Respiratory: No (was on oxygen) Pneumonia Currently Using CPAP: No Currently Using BIPAP: No Cardiac: Yes Hypertension Neurological: Yes TIA Reproductive Disorders: No Sexually Transmitted Disease: No HIV/AIDS: No Genitourinary: Yes Benign Prostatic Hyperpl Gastrointestinal: Yes (dysphagia) Musculoskeletal: Yes Arthritis Endocrine: No HEENT: No Loss of Vision: Left Hearing Impairment: Denies Cancer: Yes Prostate Psychosocial: No Integumentary: No Blood Disorders: No Adverse Reaction/Blood Tranf: No Family Medical History Hypertension 19 FATHER Hypertension Physical Exam Vital Signs Vital Signs - First Documented 08/23/19 11:48 Temp 36.7 Pulse 79 Resp 16 B/P (MAP) 130/91 (104) Pulse Ox 98 O2 Delivery Room Air Capillary Refill : Less Than 3 Seconds Height, Weight, BMI Height: 6'0.00" Weight: 188lbs. 0.0oz. 85.775459bk; 26.00 BMI Method:Stated General Appearance: No Apparent Distress, WD/WN Eyes: Bilateral Eye Normal Inspection, Bilateral Eye PERRL, Bilateral Eye EOMI HEENT: PERRL/EOMI, TMs Normal, Normal ENT Inspection, Pharynx Normal Neck: Full Range of Motion, Normal Inspection, Non Tender Respiratory: Chest Non Tender, Lungs Clear, Normal Breath Sounds Cardiovascular: Regular Rate, Rhythm, No Edema, No Murmur, Normal Peripheral Pulses Gastrointestinal: Normal Bowel Sounds, Non Tender, Soft Neurologic/Psychiatric: Alert, Oriented x3, No Motor/Sensory Deficits, Normal Mood/Affect Skin: Normal Color, Warm/Dry Progress/Results/Core Measures Suspected Sepsis Recent Fever Within 48 Hours: No Infection Criteria Present: Suspected New Infection New/Unexplained Altered Menta: No Sepsis Screen: No Definite Risk SIRS Temperature: Pulse: 79 Respiratory Rate: 16 Laboratory Tests 08/23/19 12:51: White Blood Count 7.4 Blood Pressure 130 /91 Mean: 104 Laboratory Tests 08/23/19 12:51: Creatinine 0.87, Platelet Count 181, Total Bilirubin 0.5 Results/Orders Lab Results Laboratory Tests Test 08/23/19 12:51 Range/Units White Blood Count 7.4 4.3-11.0 10^3/uL Red Blood Count 5.01 4.35-5.85 10^6/uL Hemoglobin 15.5 13.3-17.7 G/DL Hematocrit 43 40-54 % Mean Corpuscular Volume 86 80-99 FL Mean Corpuscular Hemoglobin 31 25-34 PG Mean Corpuscular Hemoglobin Concent 36 32-36 G/DL Red Cell Distribution Width 13.2 10.0-14.5 % Platelet Count 181 130-400 10^3/uL Mean Platelet Volume 10.7 H 7.4-10.4 FL Neutrophils (%) (Auto) 65 42-75 % Lymphocytes (%) (Auto) 25 12-44 % Monocytes (%) (Auto) 8 0-12 % Eosinophils (%) (Auto) 1 0-10 % Basophils (%) (Auto) 0 0-10 % Neutrophils # (Auto) 4.8 1.8-7.8 X 10^3 Lymphocytes # (Auto) 1.9 1.0-4.0 X 10^3 Monocytes # (Auto) 0.6 0.0-1.0 X 10^3 Eosinophils # (Auto) 0.1 0.0-0.3 10^3/uL Basophils # (Auto) 0.0 0.0-0.1 10^3/uL Sodium Level 135 135-145 MMOL/L Potassium Level 4.2 3.6-5.0 MMOL/L Chloride Level 101 98-107 MMOL/L Carbon Dioxide Level 25 21-32 MMOL/L Anion Gap 9 5-14 MMOL/L Blood Urea Nitrogen 15 7-18 MG/DL Creatinine 0.87 0.60-1.30 MG/DL Estimat Glomerular Filtration Rate > 60 BUN/Creatinine Ratio 17 Glucose Level 109 H 70-105 MG/DL Calcium Level 9.6 8.5-10.1 MG/DL Corrected Calcium 9.3 8.5-10.1 MG/DL Total Bilirubin 0.5 0.1-1.0 MG/DL Aspartate Amino Transf (AST/SGOT) 23 5-34 U/L Alanine Aminotransferase (ALT/SGPT) 23 0-55 U/L Alkaline Phosphatase 82 40-136 U/L Total Protein 7.1 6.4-8.2 GM/DL Albumin 4.4 3.2-4.5 GM/DL Micro Results Microbiology 08/23/19 Influenza Types A,B Antigen (SHELIA) - Final, Complete My Orders Orders - RENNYENID Influenza A And B Antigens (08/23/19 12:30) Cbc With Automated Diff (08/23/19 12:43) Comprehensive Metabolic Panel (08/23/19 12:43) Vital Signs/I&O 08/23/19 08/23/19 11:48 13:46 Temp 36.7 36.7 Pulse 79 70 Resp 16 16 B/P (MAP) 130/91 (104) 130/91 (104) Pulse Ox 98 99 O2 Delivery Room Air Room Air Capillary Refill : Less Than 3 Seconds Blood Pressure Mean: 104 Progress Note : Time: 11:55 Progress Note Patient seen and evaluated, reassured that it does not appear he has any signs of sepsis. Will obtain labs and flu swab and reevaluate. 1245 patient continues to be afebrile, normotensive and a pulse in the 60s. Reassured patient that labs were normal. Discharge instructions and return precautions reviewed with him. Departure Impression Primary Impression: Fatigue Qualified Codes: R53.83 - Other fatigue Additional Impression: Flu-like symptoms Disposition: 01 HOME, SELF-CARE Condition: Improved Departure-Patient Inst. Decision time for Depature: 13:30 Referrals: CLARA CANO MD (PCP/Family) Primary Care Physician Patient Instructions: Fatigue (DC), Viral Upper Respiratory Infection, Adult (DC) Add. Discharge Instructions: Take sbzh-wis-jcdjvwi antidiarrheal for continued soft stools. Clear liquid diet for the next 6-8 hours then bland diet as tolerated. Increase fluid intake. Take a multiple vitamin, one daily. Follow-up with your primary care provider if symptoms worsen or do not improve. Return to emergency department if difficulty breathing, fever greater than 101 not relieved by Tylenol or ibuprofen, or new urgent concerns. All discharge instructions reviewed with patient and/or family. Voiced unde rstanding. Copy Copies To 1: CLARA CANO MD, AMY ARNP Aug 23, 2019 12:54
[2019-08-23 12:56] LABS: BASOPHILS % (AUTO) 0 % (0-10); EOSINOPHILS # (AUTO) 0.1 10^3/uL (0.0-0.3); EOSINOPHILS % (AUTO) 1 % (0-10); HEMATOCRIT 43 % (40-54); HEMOGLOBIN 15.5 G/DL (13.3-17.7); LYMPHOCYTES # (AUTO) 1.9 X 10^3 (1.0-4.0); LYMPHOCYTES % (AUTO) 25 % (12-44); MEAN CORPUSCULAR HEMOGLOBIN 31 PG (25-34); MEAN CORPUSCULAR HGB CONC 36 G/DL (32-36); MEAN CORPUSCULAR VOLUME 86 FL (80-99); MEAN PLATELET VOLUME 10.7 FL (7.4-10.4); MONOCYTES # (AUTO) 0.6 X 10^3 (0.0-1.0); MONOCYTES % (AUTO) 8 % (0-12); NEUTROPHILS # (AUTO) 4.8 X 10^3 (1.8-7.8); NEUTROPHILS % (AUTO) 65 % (42-75); PLATELET COUNT 181 10^3/uL (130-400); RED CELL DISTRIBUTION WIDTH 13.2 % (10.0-14.5); WHITE BLOOD COUNT 7.4 10^3/uL (4.3-11.0)
[2019-08-23 13:17] LABS: ALANINE AMINOTRANSFERASE 23 U/L (0-55); ALBUMIN 4.4 GM/DL (3.2-4.5); ALKALINE PHOSPHATASE 82 U/L (40-136); BILIRUBIN,TOTAL 0.5 MG/DL (0.1-1.0); BUN/CREATININE RATIO 17; CALCIUM 9.6 MG/DL (8.5-10.1); CARBON DIOXIDE 25 MMOL/L (21-32); CHLORIDE 101 MMOL/L (98-107); CREATININE SERUM 0.87 MG/DL (0.60-1.30); GFR ESTIMATED > 60; GLUCOSE 109 MG/DL (70-105); POTASSIUM 4.2 MMOL/L (3.6-5.0); SODIUM 135 MMOL/L (135-145); TOTAL PROTEIN 7.1 GM/DL (6.4-8.2)
[2019-08-23 13:46] VITALS: BP 130/91
== END 2019-08-23 13:46 | disposition home or self-care (01) ==
LOC: EDUNIT# 11:42 → ER 11:43
DX: R53.83 Other fatigue (principal); R09.89 Other specified symptoms and signs involving the circulatory and respiratory systems; I10 Essential (primary) hypertension; Z79.02 Long term (current) use of antithrombotics/antiplatelets; Z86.73 Personal history of transient ischemic attack (TIA), and cerebral infarction without residual deficits; Z85.46 Personal history of malignant neoplasm of prostate; Z82.49 Family history of ischemic heart disease and other diseases of the circulatory system; Z87.09 Personal history of other diseases of the respiratory system
CPT/HCPCS: 36415; 80053; 85025; 87804

== ENCOUNTER 2019-12-23 16:13 | Emergency (ER) | payer MEDICARE, OTHER ==
[~2019-12-23] VITALS: Ht 182 cm; Wt 85.2 kg
[~2019-12-23 16:13] MED LIST changes: -CETI10TA20 PO; +CETI10TA21 PO; +LISI1TAB26 PO; -TRAM50TA2 PO; +TRM50T PO
[2019-12-23] MEDS ORDERED: NS IV 1000 ML 1,000 ML IV SCH (16:25)
--- NOTE | 2019-12-23 16:29 | ED Trauma-Multisystem ---
General Chief Complaint: Trauma-Non Activation Stated Complaint: FALL Nursing Triage Note: Pt to ED via EMS. Pt reports fall down steps 4-5 days ago. Pt has various stages of bruising to abdomen, left elbow and R side of back. Pt reports heavy alcohol use and reports drinking 5 pints of vodka today. EMS reports pt's sister is concerned about change in pt's mental status. History of Present Illness Date Seen by Provider: Dec 23, 2019 Time Seen by Provider: 14:15 Initial Comments 69-year-old male presents on referral from [facility] urgent care via EMS. Patient reports that he fell approximately 4-5 days ago down some steps, he sustained injuries and bruises to his left arm and back. He does not believe he lost consciousness but no one was present at the time of the injury. The patient has consumed alcohol on a regular basis for many years now, he did go through a period of sobriety that is currently drinking at to 5 pints of vodka per day and occasionally beer. At this time he does not wish to discontinue his alcohol intake. He would consider seeking outpatient therapy as he has done well with this in the past. His sister is present with him at this time and is concerned about his health. Occurred: Last Week Severity: Mild Pain/Injury Location: Abdomen, Back, Head, Upper Extremity (left elbow), Neck Method of Injury: Fall Loss of Consciousness: No Loss of Consciousness Allergies and Home Medications Allergies Coded Allergies: No Known Drug Allergies (Unverified , 11/23/14) Home Medications Atorvastatin Calcium 80 Mg Tablet, 80 MG PO DAILY, (Reported) Biotin 1,000 Mcg Tablet, 1,000 MCG PO DAILY, (Reported) Cetirizine HCl 10 Mg Tablet, 10 MG PO DAILY, (Reported) Clopidogrel Bisulfate 75 Mg Tablet, 75 MG PO DAILY, (Reported) Ginkgo Biloba 120 Mg Tablet, 120 MG PO DAILY, (Reported) Lisinopril/Hydrochlorothiazide 1 Each Tablet, 1 TAB PO DAILY, (Reported) Multivitamin 1 Each Tablet, 1 TAB PO DAILY, (Reported) Pantoprazole Sodium 40 Mg Tablet.dr, 40 MG PO DAILY Prescribed by: SRAVAN ANDERSON on 03/15/19 0815 Propranolol HCl 10 Mg Tablet, 10 MG PO BID, (Reported) Sucralfate 1 Gm Tablet, 1 GM PO QID Prescribed by: SRAVAN ANDERSON on 03/15/19 0815 Tramadol HCl 50 Mg Tablet, 100 MG PO TID, (Reported) TAKES 2 (50MG) TABLETS Patient Home Medication List Home Medication List Reviewed: Yes Review of Systems Review of Systems Constitutional: no symptoms reported, see HPI, weakness Musculoskeletal: see HPI, neck pain All Other Systems Reviewed Negative Unless Noted: Yes Past Tadiurv-Dkmlcm-Qekjrt Hx Past Med/Social Hx: Reviewed Nursing Past Med/Soc Hx Patient Social History Alcohol Beverage of Choice: Beer 2nd Hand Smoke Exposure: No Recent Foreign Travel: No Contact w/Someone Who Travel: No Recent Infectious Disease Expo: No Recent Hopitalizations: Yes ( - NOV 2018) Immunizations Up To Date Tetanus Booster (TDap): Unknown PED Vaccines UTD: Yes Seasonal Allergies Seasonal Allergies: No Past Medical History Surgeries: Yes (HERNIA REPAIR) Orthopedic Respiratory: No (was on oxygen) Pneumonia Currently Using CPAP: No Currently Using BIPAP: No Cardiac: Yes Hypertension Neurological: Yes TIA Reproductive Disorders: No Sexually Transmitted Disease: No HIV/AIDS: No Genitourinary: Yes Benign Prostatic Hyperpl Gastrointestinal: Yes (dysphagia) Musculoskeletal: Yes Arthritis Endocrine: No HEENT: No Loss of Vision: Left Hearing Impairment: Denies Cancer: Yes Prostate Psychosocial: No Integumentary: No Blood Disorders: No Adverse Reaction/Blood Tranf: No Family Medical History Hypertension 19 FATHER Hypertension Physical Exam Vital Signs Vital Signs - First Documented 12/23/19 16:15 Temp 37.1 Pulse 114 Resp 17 B/P (MAP) 183/122 (142) Pulse Ox 94 O2 Delivery Room Air Height, Weight, BMI Height: 6'0.00" Weight: 188lbs. 0.0oz. 85.785578yf; 25.00 BMI Method:Stated General Appearance: No Apparent Distress, WD/WN Head: Ecchymosis (left low back, left abdomen) Eyes: Bilateral Eye Normal Inspection, Bilateral Eye PERRL, Bilateral Eye EOMI Ears, Nose, Throat: Hearing Grossly Normal, No Evidence of ENT Injury, No Dental Injury Neck: Full Range of Motion, Normal Inspection, Non Tender, Supple Cardiovascular: Regular Rate, Rhythm, No Murmur, Normal Peripheral Pulses Respiratory: Chest Non Tender, Lungs Clear Gastrointestinal: Normal Bowel Sounds, Non Tender, Soft Extremity: Normal Capillary Refill, Normal Inspection, Normal Range of Motion, Non Tender, No Pedal Edema Neurologic/Psychiatric: Alert, Oriented x3, No Motor/Sensory Deficits, Normal Mood/Affect Skin: Normal Color, Warm/Dry [place] Coma Score Best Eye Response ([place]): (4) Open Spontaneously Best Verbal Response ([place]): (5) Oriented Best Motor Response ([place]): (6) Obeys Commands [place] Total: 15 Progress/Results/Core Measures Results/Orders Lab Results Laboratory Tests Test 12/23/19 16:15 12/23/19 19:00 Range/Units White Blood Count 8.7 4.3-11.0 10^3/uL Red Blood Count 4.54 4.35-5.85 10^6/uL Hemoglobin 14.2 13.3-17.7 G/DL Hematocrit 41 40-54 % Mean Corpuscular Volume 89 80-99 FL Mean Corpuscular Hemoglobin 31 25-34 PG Mean Corpuscular Hemoglobin Concent 35 32-36 G/DL Red Cell Distribution Width 13.9 10.0-14.5 % Platelet Count 114 L 130-400 10^3/uL Mean Platelet Volume 10.7 H 7.4-10.4 FL Neutrophils (%) (Auto) 83 H 42-75 % Lymphocytes (%) (Auto) 11 L 12-44 % Monocytes (%) (Auto) 7 0-12 % Eosinophils (%) (Auto) 0 0-10 % Basophils (%) (Auto) 0 0-10 % Neutrophils # (Auto) 7.2 1.8-7.8 X 10^3 Lymphocytes # (Auto) 0.9 L 1.0-4.0 X 10^3 Monocytes # (Auto) 0.6 0.0-1.0 X 10^3 Eosinophils # (Auto) 0.0 0.0-0.3 10^3/uL Basophils # (Auto) 0.0 0.0-0.1 10^3/uL Prothrombin Time 13.2 12.2-14.7 SEC INR Comment 1.0 0.8-1.4 Activated Partial Thromboplast Time 27 24-35 SEC Sodium Level 137 135-145 MMOL/L Potassium Level 3.9 3.6-5.0 MMOL/L Chloride Level 98 98-107 MMOL/L Carbon Dioxide Level 21 21-32 MMOL/L Anion Gap 18 H 5-14 MMOL/L Blood Urea Nitrogen 16 7-18 MG/DL Creatinine 0.86 0.60-1.30 MG/DL Estimat Glomerular Filtration Rate > 60 BUN/Creatinine Ratio 19 Glucose Level 168 H 70-105 MG/DL Calcium Level 8.6 8.5-10.1 MG/DL Corrected Calcium 8.3 L 8.5-10.1 MG/DL Total Bilirubin 0.8 0.1-1.0 MG/DL Aspartate Amino Transf (AST/SGOT) 99 H 5-34 U/L Alanine Aminotransferase (ALT/SGPT) 63 H 0-55 U/L Alkaline Phosphatase 96 40-136 U/L Ammonia 30 11-32 UMOL/L Troponin I 0.028 <0.028 NG/ML Total Protein 7.2 6.4-8.2 GM/DL Albumin 4.4 3.2-4.5 GM/DL Amylase Level 36 25-125 U/L TSH [place] Testing 1.51 0.35-4.94 UIU/ML Serum Alcohol 86 H <10 MG/DL Urine Color RICHIE H Urine Clarity CLEAR Urine pH 6.0 5-9 Urine Specific [place] >=1.030 1.016-1.022 Urine Protein 1+ H NEGATIVE Urine Glucose (UA) 2+ H NEGATIVE Urine Ketones TRACE H NEGATIVE Urine Nitrite NEGATIVE NEGATIVE Urine Bilirubin NEGATIVE NEGATIVE Urine Urobilinogen 0.2 < = 1.0 MG/DL Urine Leukocyte Esterase NEGATIVE NEGATIVE Urine RBC (Auto) TRACE-L NEGATIVE Urine RBC 0-2 /HPF Urine WBC NONE /HPF Urine Squamous Epithelial Cells 2-5 /HPF Urine Crystals NONE /LPF Urine Bacteria NEGATIVE /HPF Urine Casts NONE /LPF Urine Mucus NEGATIVE /LPF Urine Culture Indicated NO Urine Opiates Screen NEGATIVE NEGATIVE Urine Oxycodone Screen NEGATIVE NEGATIVE Urine Methadone Screen NEGATIVE NEGATIVE Urine Propoxyphene Screen NEGATIVE NEGATIVE Urine Barbiturates Screen NEGATIVE NEGATIVE Ur Tricyclic Antidepressants Screen NEGATIVE NEGATIVE Urine Phencyclidine Screen NEGATIVE NEGATIVE Urine Amphetamines Screen NEGATIVE NEGATIVE Urine Methamphetamines Screen NEGATIVE NEGATIVE Urine Benzodiazepines Screen NEGATIVE NEGATIVE Urine Cocaine Screen NEGATIVE NEGATIVE Urine Cannabinoids Screen NEGATIVE NEGATIVE My Orders Orders - ENID LAWSON Ct Abdomen/Pelvis Wo (12/23/19 16:24) Ct Head/Cervical Spine Wo (12/23/19 16:24) Chest Pa/Lat (2 View) (12/23/19 16:24) Alcohol (12/23/19 16:24) Ammonia (12/23/19 16:24) Amylase (12/23/19 16:24) Cbc With Automated Diff (12/23/19 16:24) Comprehensive Metabolic Panel (12/23/19 16:24) Drug Screen Stat (Urine) (12/23/19 16:24) Protime With Inr (12/23/19 16:24) Partial Thromboplastin Time (12/23/19 16:24) Thyroid Analyzer (12/23/19 16:24) Ua Culture If Indicated (12/23/19 16:24) Ed Iv/Invasive Line Start (12/23/19 16:25) Ns Iv 1000 Ml (Sodium Chloride 0.9%) (12/23/19 16:25) Dipht,Pertuss(Acell),Tet Adult (Boostrix (12/23/19 16:30) Ekg Tracing (12/23/19 16:37) Troponin I (12/23/19 17:36) Ondansetron Injection (Zofran Injectio (12/23/19 18:15) Medications Given in ED Current Medications Medications Dose Ordered Sig/Colton Route Start Time Stop Time Status Last Admin Dose Admin Diphtheria/ Tetanus/Acell Pertussis 0.5 ml ONCE ONCE IM 12/23/19 16:30 12/23/19 16:31 DC 12/23/19 16:35 0.5 ML Ondansetron HCl 8 mg ONCE ONCE IVP 12/23/19 18:15 12/23/19 18:16 DC 12/23/19 18:23 8 MG Vital Signs/I&O 12/23/19 16:15 Temp 37.1 Pulse 114 Resp 17 B/P (MAP) 183/122 (142) Pulse Ox 94 O2 Delivery Room Air Blood Pressure Mean: 142 Progress Progress Note : Time: 14:15 Progress Note Patient seen and evaluated, will obtain labs and CT of the head and neck, CT of the abdomen and pelvis, chest x-ray, and normal saline 1 L. 1515 patient denies any complaints at this time. X-ray and CT findings reviewed with patient and his sister. 1600 patient complaining of nausea, vomited one time. Will give Zofran 4 mg IV. Lab results reviewed. 1700 no further nausea or vomiting. Discussed at length his alcoholism and risks versus benefits. Stressed the importance of not stopping without seeking inpatient treatment is he will have withdrawal symptoms. However stressed the importance of decreasing the amount of alcohol that he takes daily. He will be staying at his sister's in the next few days. Patient tried at length to rationalize his alcohol intake myself and his sister. No confusion or altered mental status noted. 0 patient taking ice chips and water with no nausea or vomiting. 1829 discharge instructions and return precautions reviewed with him in detail. All questions answered. Patient continues to deny desire for inpatient detox. Initial ECG Impression Date: Dec 23, 2019 Initial ECG Impression Time: 17:28 Initial ECG Rate: 85 Initial ECG Rhythm: Normal Sinus Initial ECG Intervals: Normal Initial ECG Intervals MO 168, QRSD 96, QT 384, QTc 457. [place] P 57, QRS 6, T 69. Initial ECG Impression: Normal Initial ECG Comparisson: Unchanged Diagnostic Imaging Diagonstic Imaging: Xray Plain Films/CT/US/NM/MRI: chest Comments NAME: LORA SINGLETARY [facility] REC#: [id number] PT STATUS: REG ER : 1950 PHYSICIAN: ENID LAWSON ADMIT DATE: 12/23/19/ER Draft Date of Exam:12/23/19 CHEST PA/LAT (2 VIEW) INDICATION: Fall with bruising to the abdominal area. Comparison made to prior examination 11/26/2018. PA and lateral views were obtained. FINDINGS: The heart size, mediastinal configuration, and pulmonary vascularity are within normal limits. There is no pleural effusion, pneumothorax, or pneumonia. The osseous structures are unremarkable. IMPRESSION: No acute cardiopulmonary abnormality. Dictated on workstation # [id number] Dict: 12/23/19 1649 Trans: 12/23/19 1651 [facility] [id number] Interpreted by: CHRISTIANO HARPER MD Electronically signed by: Reviewed: Reviewed by Me Diagonstic Imaging: CT Plain Films/CT/US/NM/MRI: abdomen, pelvis Comments NAME: LORA SINGLETARY [facility] REC#: [id number] PT STATUS: REG ER : 1950 PHYSICIAN: ENID LAWSON ADMIT DATE: 12/23/19/ER Draft Date of Exam:12/23/19 CT ABDOMEN/PELVIS WO PROCEDURE: CT abdomen and pelvis without contrast. TECHNIQUE: Multiple contiguous axial images were obtained through the abdomen and pelvis without the use of intravenous contrast. Auto Exposure Controls were utilized during the CT exam to meet ALARA standards for radiation dose reduction. INDICATION: Pain after fall. FINDINGS: The heart size is normal. The lung bases are clear. Liver is normal in size and without focal lesions. Gallbladder is unremarkable. There is no biliary ductal dilatation. Spleen is normal. The pancreas and adrenal glands are unremarkable. There are cysts in the kidneys, bilaterally. The aorta is nonaneurysmal. Bowel gas pattern is nonspecific. The appendix is normal. There is no free air. There is no ascites. There are no focal inflammatory changes. There is some diverticular disease without evidence of diverticulitis. There is no pelvic mass, adenopathy or free fluid. There are degenerative changes in the spine. IMPRESSION: 1. Bilateral renal cysts. 2. Diverticular disease without evidence of diverticulitis. 3. No other acute abnormality in the abdomen or pelvis. Dictated on workstation # [id number] Dict: 12/23/19 1717 Trans: 12/23/19 1722 [facility] [id number] Interpreted by: CHRISTIANO HARPER MD Electronically signed by: Reviewed: Reviewed by Me Diagonstic Imaging: CT Plain Films/CT/US/NM/MRI: c-spine, head Comments NAME: LORA SINGLETARY [facility] REC#: [id number] PT STATUS: REG ER : 1950 PHYSICIAN: ENID LAWSONP ADMIT DATE: 12/23/19/ER Draft Date of Exam:12/23/19 CT HEAD/CERVICAL SPINE WO PROCEDURE: CT head and CT cervical spine without contrast. TECHNIQUE: Multiple contiguous axial images were obtained through the brain and cervical spine without the use of intravenous contrast. Sagittal and coronal reformations through the cervical spine were then performed. Auto Exposure Controls were utilized during the CT exam to meet ALARA standards for radiation dose reduction. INDICATION: Fall. Comparison is made to prior examination 10/31/2018. FINDINGS: There is prominence of ventricles and sulci. There is mild chronic microvascular ischemic disease. There is a focal area of decreased attenuation in the right occipital lobe compatible with prior CVA. There is no hydrocephalus. There is no midline shift. There is no mass, hemorrhage or extra-axial fluid collection. Calvarium is intact. Sinuses and mastoid air cells are clear. There is straightening of the normal cervical lordosis. There is posterior facet arthropathy. There is multilevel degenerative disc disease. There is no fracture or traumatic subluxation. The odontoid is intact. Lateral mass is well aligned. Prevertebral soft tissues are within normal limits. Lung apices are clear. IMPRESSION: Atrophy and some chronic microvascular ischemic disease with unchanged encephalomalacia in the right occipital lobe compatible with prior CVA. There is however no acute intracranial abnormality. Moderate cervical spondylosis and multilevel degenerative disc disease without acute fracture or traumatic subluxation. Dictated on workstation # [id number] Dict: 12/23/191713 Trans: 12/23/191718 [facility] [id number] Interpreted by: CHRISTIANO HARPER MD Electronically signed by: Reviewed: Reviewed by Me Departure Impression Primary Impression: Alcoholism Additional Impression: Fall Qualified Codes: W19.XXXA - Unspecified fall, initial encounter Disposition: 01 HOME, SELF-CARE Condition: Improved Departure-Patient Inst. Decision time for Depature: 18:30 Referrals: RENO ELDER MD, FLOYD R MD (PCP/Family) Primary Care Physician Patient Instructions: Alcohol Abuse and Alcoholism (DC) Add. Discharge Instructions: Continue to hydrate with water 16 ounces every 2 hours while awake. Consider outpatient treatment for alcoholism. Follow-up with your primary care provider or mental health providers that he was seen in the past symptoms are not improving or worsen. Return to the emergency department for new, urgent health care needs. All discharge instructions reviewed with patient and/or family. Voiced understanding. Copy Copies To 1: RENO ELDER MD, AMY ARNP Dec 23, 2019 16:28
[2019-12-23] MEDS ORDERED: TETANUS,DIPTH,PERTUSS P/F (BOOSTRIX) 0.5 ML VIAL IM ONE (16:30)
[2019-12-23 16:32] LABS: BASOPHILS % (AUTO) 0 % (0-10); EOSINOPHILS % (AUTO) 0 % (0-10); HEMATOCRIT 41 % (40-54); HEMOGLOBIN 14.2 G/DL (13.3-17.7); LYMPHOCYTES # (AUTO) 0.9 X 10^3 (1.0-4.0); LYMPHOCYTES % (AUTO) 11 % (12-44); MEAN CORPUSCULAR HEMOGLOBIN 31 PG (25-34); MEAN CORPUSCULAR HGB CONC 35 G/DL (32-36); MEAN CORPUSCULAR VOLUME 89 FL (80-99); MEAN PLATELET VOLUME 10.7 FL (7.4-10.4); MONOCYTES # (AUTO) 0.6 X 10^3 (0.0-1.0); MONOCYTES % (AUTO) 7 % (0-12); NEUTROPHILS # (AUTO) 7.2 X 10^3 (1.8-7.8); NEUTROPHILS % (AUTO) 83 % (42-75); PLATELET COUNT 114 10^3/uL (130-400); RED CELL DISTRIBUTION WIDTH 13.9 % (10.0-14.5); WHITE BLOOD COUNT 8.7 10^3/uL (4.3-11.0)
[2019-12-23 16:37] LABS: PROTHROMBIN TIME PATIENT 13.2 SEC (12.2-14.7)
[2019-12-23 16:46] LABS: ALANINE AMINOTRANSFERASE 63 U/L (0-55); ALBUMIN 4.4 GM/DL (3.2-4.5); ALKALINE PHOSPHATASE 96 U/L (40-136); AMMONIA 30 UMOL/L (11-32); AMYLASE 36 U/L (25-125); BILIRUBIN,TOTAL 0.8 MG/DL (0.1-1.0); BUN/CREATININE RATIO 19; CALCIUM 8.6 MG/DL (8.5-10.1); CARBON DIOXIDE 21 MMOL/L (21-32); CHLORIDE 98 MMOL/L (98-107); CREATININE SERUM 0.86 MG/DL (0.60-1.30); GFR ESTIMATED > 60; GLUCOSE 168 MG/DL (70-105); POTASSIUM 3.9 MMOL/L (3.6-5.0); SODIUM 137 MMOL/L (135-145); TOTAL PROTEIN 7.2 GM/DL (6.4-8.2)
--- NOTE | 2019-12-23 16:51 | Diagnostic Imaging Report ---
INDICATION: Fall with bruising to the abdominal area. Comparison made to prior examination 11/26/2018. PA and lateral views were obtained. FINDINGS: The heart size, mediastinal configuration, and pulmonary vascularity are within normal limits. There is no pleural effusion, pneumothorax, or pneumonia. The osseous structures are unremarkable. IMPRESSION: No acute cardiopulmonary abnormality. Dictated by: Dictated on workstation # [id number]
[2019-12-23 17:06] LABS: TSH (THYROID ANALYZER) 1.51 UIU/ML (0.35-4.94)
--- NOTE | 2019-12-23 17:20 | Diagnostic Imaging Report ---
PROCEDURE: CT head and CT cervical spine without contrast. TECHNIQUE: Multiple contiguous axial images were obtained through the brain and cervical spine without the use of intravenous contrast. Sagittal and coronal reformations through the cervical spine were then performed. Auto Exposure Controls were utilized during the CT exam to meet ALARA standards for radiation dose reduction. INDICATION: Fall. Comparison is made to prior examination 10/31/2018. FINDINGS: There is prominence of ventricles and sulci. There is mild chronic microvascular ischemic disease. There is a focal area of decreased attenuation in the right occipital lobe compatible with prior CVA. There is no hydrocephalus. There is no midline shift. There is no mass, hemorrhage or extra-axial fluid collection. Calvarium is intact. Sinuses and mastoid air cells are clear. There is straightening of the normal cervical lordosis. There is posterior facet arthropathy. There is multilevel degenerative disc disease. There is no fracture or traumatic subluxation. The odontoid is intact. Lateral mass is well aligned. Prevertebral soft tissues are within normal limits. Lung apices are clear. IMPRESSION: Atrophy and some chronic microvascular ischemic disease with unchanged encephalomalacia in the right occipital lobe compatible with prior CVA. There is however no acute intracranial abnormality. Moderate cervical spondylosis and multilevel degenerative disc disease without acute fracture or traumatic subluxation. Dictated by: Dictated on workstation # [id number]
--- NOTE | 2019-12-23 17:22 | Diagnostic Imaging Report ---
PROCEDURE: CT abdomen and pelvis without contrast. TECHNIQUE: Multiple contiguous axial images were obtained through the abdomen and pelvis without the use of intravenous contrast. Auto Exposure Controls were utilized during the CT exam to meet ALARA standards for radiation dose reduction. INDICATION: Pain after fall. FINDINGS: The heart size is normal. The lung bases are clear. Liver is normal in size and without focal lesions. Gallbladder is unremarkable. There is no biliary ductal dilatation. Spleen is normal. The pancreas and adrenal glands are unremarkable. There are cysts in the kidneys, bilaterally. The aorta is nonaneurysmal. Bowel gas pattern is nonspecific. The appendix is normal. There is no free air. There is no ascites. There are no focal inflammatory changes. There is some diverticular disease without evidence of diverticulitis. There is no pelvic mass, adenopathy or free fluid. There are degenerative changes in the spine. IMPRESSION: 1. Bilateral renal cysts. 2. Diverticular disease without evidence of diverticulitis. 3. No other acute abnormality in the abdomen or pelvis. Dictated by: Dictated on workstation # [id number]
[2019-12-23] MEDS ORDERED: ONDANSETRON 4 MG/2 ML (SDV) Z0FRAN IVP ONE (18:15)
--- NOTE | 2019-12-23 19:00 | NUR ---
ASSUMED CARE OF THIS PATIENT FROM DEBORA LLOYD. PATIENT IS ALERT AND ORIENTED X4 AND SISTER IS AT BEDSIDE. INTRODUCED SELF TO PATIENT AND SISTER. AT THIS TIME THEY ARE BOTH UPDATED ON TIME LINE FOR DISCHARGE. DENY NEEDS OR CONCERNS AT THIS TIME. WILL CONTINUE TO MONITOR. CALL LIGHT IN REACH.
[2019-12-23 19:14] LABS: BILIRUBIN,URINE NEGATIVE (NEGATIVE); CLARITY,URINE CLEAR; COLOR,URINE AMBER; GLUCOSE, URINE (UA) 2+ (NEGATIVE); KETONES,URINE TRACE (NEGATIVE); LEUKOCYTE ESTERASE ,URINE NEGATIVE (NEGATIVE); NITRITE,URINE NEGATIVE (NEGATIVE); PROTEIN,URINE 1+ (NEGATIVE)
[2019-12-23 19:25] LABS: BACTERIA,URINE NEGATIVE /HPF; RBC,URINE 0-2 /HPF
[2019-12-23 19:34] LABS: AMPHETAMINE SCREEN, URINE NEGATIVE (NEGATIVE); BARBITURATE SCREEN URINE NEGATIVE (NEGATIVE); BENZODIAZEPINES SCREEN URINE NEGATIVE (NEGATIVE); CANNABINOID SCREEN, URINE NEGATIVE (NEGATIVE); COCAINE SCREEN URINE NEGATIVE (NEGATIVE); METHADONE STAT NEGATIVE (NEGATIVE); METHAMPHETAMINE SCREEN URINE S NEGATIVE (NEGATIVE); OPIATE SCREEN URINE NEGATIVE (NEGATIVE); OXYCODONE STAT NEGATIVE (NEGATIVE); PROPOXYPHENE STAT NEGATIVE (NEGATIVE); TRICYCLIC ANTIDEPRESSANTS SCRE NEGATIVE (NEGATIVE)
[2019-12-23 19:39] VITALS: BP 160/95
== END 2019-12-23 19:45 | disposition home or self-care (01) ==
LOC: EDUNIT# 16:13 → ER 16:14
DX: S30.1XXA Contusion of abdominal wall, initial encounter (principal); S30.0XXA Contusion of lower back and pelvis, initial encounter; F10.10 Alcohol abuse, uncomplicated; I10 Essential (primary) hypertension; R40.2142 Coma scale, eyes open, spontaneous, at arrival to emergency department; R40.2252 Coma scale, best verbal response, oriented, at arrival to emergency department; R40.2362 Coma scale, best motor response, obeys commands, at arrival to emergency department; Z79.02 Long term (current) use of antithrombotics/antiplatelets; Z86.73 Personal history of transient ischemic attack (TIA), and cerebral infarction without residual deficits; Z85.46 Personal history of malignant neoplasm of prostate; Z23 Encounter for immunization; W10.9XXA Fall (on) (from) unspecified stairs and steps, initial encounter
CPT/HCPCS: 36415; 70450; 71046; 72125; 74176; 80053; 80306; 80320; 81000; 82140; 82150; 84443; 84484; 85025; 85610; 85730; 90715; 93005

== ENCOUNTER → 2020-04-10 | Outpatient (CLI) | payer MEDICARE, OTHER ==
[~2020-04-10] MED LIST changes: +ACHD5005 PO; -HYDR-3812 PO
== END ==
LOC: LABNPT 08:32
PROVIDERS: ATTEND Family Medicine
DX: Z20.828 Contact with and (suspected) exposure to other viral communicable diseases (principal)
CPT/HCPCS: 87635

== ENCOUNTER → 2020-08-13 | Outpatient (CLI) | payer MEDICARE, OTHER ==
[~2020-08-13] MED LIST changes: -CETI10TA21 PO; +CETI10TA49 PO; +MULT-567 PO; -MULT1TAB69 PO
--- NOTE | 2020-08-13 14:54 | Diagnostic Imaging Report ---
EXAMINATION: Magnetic resonance imaging of the right shoulder without contrast. DATE: August 13, 2020. COMPARISON: None. HISTORY: 70-year-old male, fall. Right shoulder pain and decreased range of motion. History of prostate cancer. FINDINGS: ROTATOR CUFF, LIGAMENTS, TENDONS, AND MUSCLES: There is severe subscapularis tendinopathy. There is a full-thickness tear involving the anterior aspect of the supraspinatus tendon with the tear measuring 1.7 cm in medial to lateral extent. There is infraspinatus tendinopathy. The teres minor tendon is intact. There is normal rotator cuff muscle bulk and signal. LONG HEAD OF BICEPS: The intra-articular segment of the long head of biceps tendon is not well seen. The long head of biceps tendon is positioned in the bicipital groove and is likely torn and retracted within the bicipital groove. GLENOHUMERAL JOINT: The humeral head is mildly superiorly subluxed. The labrum is grossly intact. There is no identified paralabral cyst. There is mild glenohumeral cartilage thinning. There is a trace to small glenohumeral joint effusion. ACROMIOCLAVICULAR JOINT: The acromioclavicular joint is normally aligned. The coracoclavicular and coracoacromial ligaments are intact. There are mild acromioclavicular degenerative changes without large undersurface osteophyte. BONE: There is no os acromiale. There is no Hill-Sachs deformity. There is very prominent marrow edema in the proximal humerus underlying the lesser tuberosity. There is no fracture line. There are no pathognomonic signal changes of osteonecrosis. The bone marrow signal is within normal limits. Specifically, negative for fracture, osteomyelitis, osteonecrosis, or marrow replacing process. BURSAE AND SOFT TISSUES: There is a very small amount of fluid in the subacromial/subdeltoid bursa. IMPRESSION: 1. Full-thickness tear involving the anterior aspect of the supraspinatus tendon with tendon retraction to the level of the superior humeral head. Infraspinatus and severe subscapularis tendinopathy. Normal muscle bulk and intramuscular signal. 2. Mild acromioclavicular degenerative changes without undersurface osteophyte. 3. Tear of the proximal long head of biceps tendon which is retracted in the bicipital groove. 4. Very prominent marrow edema in the proximal humerus overlying the lesser tuberosity which could be related to a bone contusion or could be reactive to the severe subscapularis tendinopathy. No clearly identified fracture line. 5. Mild glenohumeral arthritis with trace to small glenohumeral joint effusion. Dictated by: Dictated on workstation # [id number]
== END ==
LOC: RAD 13:15
PROVIDERS: ATTEND Orthopaedic Surgery
DX: M75.121 Complete rotator cuff tear or rupture of right shoulder, not specified as traumatic (principal); M19.011 Primary osteoarthritis, right shoulder; M25.411 Effusion, right shoulder; M75.81 Other shoulder lesions, right shoulder; Z20.828 Contact with and (suspected) exposure to other viral communicable diseases; Z85.46 Personal history of malignant neoplasm of prostate; W19.XXXA Unspecified fall, initial encounter
CPT/HCPCS: 73221

== ENCOUNTER → 2021-07-01 | Outpatient (CLI) | payer MEDICARE, OTHER ==
[~2021-07-01] MED LIST changes: +GADOBUTROL 10 MMOL/10 ML (GADAVIST) VIAL IV ONE
--- NOTE | 2021-07-01 14:54 | Diagnostic Imaging Report ---
PROCEDURE: MR imaging of the brain with and without contrast. TECHNIQUE: Multiplanar, multisequence MR imaging of the brain was performed with and without contrast. INDICATION: Excessive sleep, confusion, and alcoholism. COMPARISON: Correlation is made with prior MRI brain from 11/26/2014. FINDINGS: No diffusion restriction is identified on today's study to suggest acute ischemia. The normal expected flow-voids within the carotid siphons are seen. Ventricles and sulci are prominent consistent with cerebral volume loss. Old infarct in the right occipital lobe is noted with an area of encephalomalacia present. There are periventricular and subcortical white matter changes noted consistent with chronic microvascular ischemia. No acute intra-axial or extra-axial hemorrhage is detected. No abnormal enhancement is identified following contrast administration. Corpus callosum is unremarkable. Sella and parasellar structures are unremarkable. IMPRESSION: Cerebral atrophy with changes of chronic microvascular ischemia. There is an old infarct in the right occipital lobe. No acute intracranial process is detected. Dictated by: Dictated on workstation # [id number]
== END ==
LOC: RAD 13:15
PROVIDERS: ATTEND Family Medicine
DX: G31.9 Degenerative disease of nervous system, unspecified (principal); I67.82 Cerebral ischemia; G47.10 Hypersomnia, unspecified; F10.20 Alcohol dependence, uncomplicated
CPT/HCPCS: 70553

== ENCOUNTER 2021-11-08 16:50 | Emergency (ER) | payer MEDICARE, OTHER ==
[~2021-11-08] VITALS: Ht 183 cm; Wt 84.0 kg
[~2021-11-08 16:50] MED LIST changes: -GADOBUTROL 10 MMOL/10 ML (GADAVIST) VIAL IV ONE; -LISI1TAB26 PO; +LISI1TAB48 PO
--- NOTE | 2021-11-08 17:36 | ED Fall/Injury ---
General Stated Complaint: FALL/R SIDE RIB PAIN Source: patient, other Exam Limitations: no limitations (JASPAL ALONSO) History of Present Illness Date Seen by Provider: Nov 08, 2021 Time Seen by Provider: 17:18 Initial Comments Patient to the ER by private conveyance with chief complaint of a fall. He does not member the details of the fall. He says he drinks in binges for couple days at a time. He knows he was drinking vodka from night or Wednesday morning onwards. His neighbor accompanies him and states that he was okay on Wednesday morning. They checked on him again at 3:00 this afternoon because nobody had heard from him and found him on the floor where he had smashed the side table hit his head and was having pain in his right ribs. He is not feeling any shortness of breath. He does not have any pain elsewhere. He feels dehydrated. He does not use recreational drugs or smoke. He says they found at least 1 vodka pint in the trash can. His neighbor states that he is very confused compared to normal. He says he is able to walk without pain except in his ribs. (JASPAL ALONSO) Allergies and Home Medications Allergies Coded Allergies: No Known Drug Allergies (Unverified , 11/23/14) Patient Home Medication List Home Medication List Reviewed: Yes (JASPAL ALONSO) Atorvastatin Calcium (Lipitor) 80 Mg Tablet, 80 MG PO DAILY, (Reported) Entered as Reported by: MARGARITA SOUZA on 10/31/18 1103 Biotin (Biotin) 1,000 Mcg Tablet, 1,000 MCG PO DAILY, (Reported) Entered as Reported by: MARGARITA SOUZA on 10/31/18 1259 Cetirizine HCl (Zyrtec) 10 Mg Tablet, 10 MG PO DAILY, (Reported) Entered as Reported by: MARGARITA SOUZA on 02/02/19 1216 Clopidogrel Bisulfate (Clopidogrel) 75 Mg Tablet, 75 MG PO DAILY, (Reported) Entered as Reported by: MARGARITA SOUZA on 10/31/18 1103 Ginkgo Biloba (Ginkgo Biloba) 120 Mg Tablet, 120 MG PO DAILY, (Reported) Entered as Reported by: MARGARITA SOUZA on 10/31/18 1259 Hydrocodone/Acetaminophen (Hydrocodone-Acetamin 5-325 mg) 1 Each Tablet, 1 TAB PO Q4H PRN for PAIN-MODERATE (5-7) Prescribed by: JITENDRA RUBIO on 11/08/21 183 Lisinopril/Hydrochlorothiazide (Lisinopril-Hctz 20-25 mg Tab) 1 Each Tablet, 1 TAB PO DAILY, (Reported) Entered as Reported by: MARGARITA SOUZA on 10/31/18 1259 Multivitamin (Multivitamins) 1 Each Tablet, 1 TAB PO DAILY, (Reported) Entered as Reported by: MARGARITA SOUZA on 10/31/18 1103 Pantoprazole Sodium (Protonix) 40 Mg Tablet.dr, 40 MG PO DAILY Prescribed by: SRAVAN ANDERSON on 03/15/19 0815 Propranolol HCl (Propranolol HCl) 10 Mg Tablet, 10 MG PO BID, (Reported) Entered as Reported by: MARGARITA SOUZA on 10/31/18 1103 Sucralfate (Carafate) 1 Gm Tablet, 1 GM PO QID Prescribed by: SRAVAN ANDERSON on 03/15/19 0815 Tramadol HCl (Tramadol HCl) 50 Mg Tablet, 100 MG PO TID, (Reported) Entered as Reported by: MARGARITA SOUZA on 10/31/18 1103 Review of Systems Review of Systems Constitutional: No chills, No diaphoresis Eyes: Denies Blindness, Denies Blurred Vision Ears, Nose, Mouth, Throat: denies ear pain, denies ear discharge Respiratory: No cough, No short of breath Cardiovascular: No chest pain, No palpitations Gastrointestinal: No abdominal pain, No constipation, No diarrhea Genitourinary: No discharge, No dysuria Musculoskeletal: see HPI; No back pain, No joint pain (JASPAL ALONSO) All Other Systems Reviewed Negative Unless Noted: Yes (JASPAL ALONSO) Past Wbaeost-Araafc-Qnhvnb Hx Patient Social History Tobacco Use?: No Use of E-Cig and/or Vaping dev: No (JASPAL ALONSO) Immunizations Up To Date Tetanus Booster (TDap): Unknown PED Vaccines UTD: Yes (JASPAL ALONSO) Seasonal Allergies Seasonal Allergies: No (JASPAL ALONSO) Past Medical History Surgeries: Yes (HERNIA REPAIR) Orthopedic Respiratory: No (was on oxygen) Pneumonia Currently Using CPAP: No Currently Using BIPAP: No Cardiac: Yes Hypertension Neurological: Yes TIA Reproductive Disorders: No Sexually Transmitted Disease: No HIV/AIDS: No Genitourinary: Yes Benign Prostatic Hyperpl Gastrointestinal: Yes (dysphagia) Musculoskeletal: Yes Arthritis Endocrine: No HEENT: No Loss of Vision: Left Hearing Impairment: Denies Cancer: Yes Prostate Psychosocial: No Integumentary: No Blood Disorders: No Adverse Reaction/Blood Tranf: No (JASPAL ALONSO) Family Medical History Hypertension 19 FATHER Hypertension (JASPAL ALONSO) Physical Exam Vital Signs Vital Signs - First Documented 11/08/21 17:00 Temp 36.9 Pulse 67 Resp 20 B/P (MAP) 134/76 (95) Pulse Ox 97 O2 Delivery Room Air (JITENDRA RUBIO APRN) Vital Signs Capillary Refill : (JASPAL ALONSO) Height, Weight, BMI Height: 6'0.00" Weight: 188lbs. 0.0oz. 85.746280vy; 25.00 BMI Method:Stated General Appearance: WD/WN, no apparent distress HEENT: PERRL/EOMI, normal ENT inspection, TMs normal (Negative for velez sign or raccoon eyes. Negative hemotympanum.), pharynx normal Neck: non-tender, full range of motion, supple, normal inspection Cardiovascular: normal peripheral pulses, regular rate, rhythm Respiratory: No chest non-tender (Right chest lateral and mid axillary gasoline attendant to palpation about 8 through 12); lungs clear, normal breath sounds, no respiratory distress, no accessory muscle use Peripheral Pulses: 2+ Radial Pulses (R), 2+ Radial Pulses (L) Gastrointestinal: normal bowel sounds, non tender, soft Neurologic/Psychiatric: alert, normal mood/affect, oriented x 3 Skin: normal color, warm/dry (JASPAL ALONSO) Progress/Results/Core Measures Results/Orders Lab Results Laboratory Tests Test 11/08/21 17:25 Range/Units White Blood Count 16.1 H 4.3-11.0 10^3/uL Red Blood Count 4.45 4.30-5.52 10^6/uL Hemoglobin 13.9 13.3-17.7 g/dL Hematocrit 41 40-54 % Mean Corpuscular Volume 93 80-99 fL Mean Corpuscular Hemoglobin 31 25-34 pg Mean Corpuscular Hemoglobin Concent 34 32-36 g/dL Red Cell Distribution Width 14.3 10.0-14.5 % Platelet Count 177 130-400 10^3/uL Mean Platelet Volume 10.6 9.0-12.2 fL Immature Granulocyte % (Auto) 0 % Neutrophils (%) (Auto) 84 H 42-75 % Lymphocytes (%) (Auto) 10 L 12-44 % Monocytes (%) (Auto) 5 0-12 % Eosinophils (%) (Auto) 0 0-10 % Basophils (%) (Auto) 0 0-10 % Neutrophils # (Auto) 13.5 H 1.8-7.8 10^3/uL Lymphocytes # (Auto) 1.7 1.0-4.0 10^3/uL Monocytes # (Auto) 0.8 0.0-1.0 10^3/uL Eosinophils # (Auto) 0.1 0.0-0.3 10^3/uL Basophils # (Auto) 0.0 0.0-0.1 10^3/uL Immature Granulocyte # (Auto) 0.0 0.0-0.1 10^3/uL Neutrophils % (Manual) 80 % Lymphocytes % (Manual) 14 % Monocytes % (Manual) 6 % Blood Morphology Comment NORMAL Sodium Level 134 L 135-145 MMOL/L Potassium Level 5.0 3.6-5.0 MMOL/L Chloride Level 97 L 98-107 MMOL/L Carbon Dioxide Level 22 21-32 MMOL/L Anion Gap 15 H 5-14 MMOL/L Blood Urea Nitrogen 16 7-18 MG/DL Creatinine 0.94 0.60-1.30 MG/DL Estimat Glomerular Filtration Rate 79 BUN/Creatinine Ratio 17 Glucose Level 169 H 70-105 MG/DL Calcium Level 9.6 8.5-10.1 MG/DL Corrected Calcium 9.3 8.5-10.1 MG/DL Total Bilirubin 0.7 0.1-1.0 MG/DL Aspartate Amino Transf (AST/SGOT) 43 H 5-34 U/L Alanine Aminotransferase (ALT/SGPT) 22 0-55 U/L Alkaline Phosphatase 71 40-136 U/L Total Creatine Kinase 354 H 30-200 U/L C-Reactive Protein High Sensitivity 0.92 H 0.00-0.50 MG/DL Total Protein 7.8 6.4-8.2 GM/DL Albumin 4.4 3.2-4.5 GM/DL Serum Alcohol < 10 <10 MG/DL (JITENDRA RUBIO STONE SETTER) Medications Given in ED Current Medications Medications Dose Ordered Sig/Colton Route Start Time Stop Time Status Last Admin Dose Admin Lactated Ringer's 1,000 ml @ 0 mls/hr Q0M ONCE IV 11/08/21 17:45 11/08/21 17:46 DC 11/08/21 18:15 0 MLS/HR (JITENDRA RUBIO STONE SETTER) Vital Signs/I&O 11/08/21 17:00 Temp 36.9 Pulse 67 Resp 20 B/P (MAP) 134/76 (95) Pulse Ox 97 O2 Delivery Room Air (JITENDRA RUBIO STONE SETTER) Progress Progress Note : Time: 17:35 Progress Note Plan to CT his head and neck, plain films of the right ribs. Rest of his abdomen torso legs look okay. No lacerations. No signs of basal skull fracture. Will check labs including alcohol, CPK and give him a liter of lactated Ringer's. (JASPAL ALONSO) Diagnostic Imaging Diagonstic Imaging: CT Plain Films/CT/US/NM/MRI: c-spine, head Comments [facility], [place] NAME: LORA SINGLETARY [facility] REC#: [id number] PT STATUS: REG ER : 1950 PHYSICIAN: JASPAL ALONSO MD ADMIT DATE: 11/08/21/ER Signed Date of Exam:11/08/21 CT HEAD/CERVICAL SPINE WO PROCEDURE: CT head and CT cervical spine without contrast. TECHNIQUE: Multiple contiguous axial images were obtained through the brain and cervical spine without the use of intravenous contrast. Sagittal and coronal reformations through the cervical spine were then performed. Auto Exposure Controls were utilized during the CT exam to meet ALARA standards for radiation dose reduction. INDICATION: Fall. Head and neck pain. COMPARISON: 12/23/2019. FINDINGS: CT head: No large acute territorial ischemia, mass or hemorrhage. No midline shift or mass effect. Old infarct is seen in the right occipital region. Decreased attenuation is seen in the periventricular and subcortical white matter. The ventricles and cortical sulci are prominent. The basilar cisterns are patent and unremarkable. The calvarium is intact. The visualized paranasal sinuses are clear. CT cervical spine: No acute fracture or dislocation is seen in the cervical spine. No focal osseous lesions. Vertebral body heights are well-maintained. The craniocervical junction is well-maintained. Mild degenerative changes are seen in the cervical spine with disc osteophyte complexes and uncovertebral arthropathy. Soft tissues of the neck are unremarkable. IMPRESSION: 1. No hemorrhage or focal intra-axial mass. No CT evidence of large acute territorial ischemia. 2. No acute fracture or dislocation in the cervical spine. 3. 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 Dictated by: Dictated on workstation # [id number] Dict: 11/08/21 175 Trans: 11/08/211802 PJE [id number] Interpreted by: CLARK MARIN DO Electronically signed by: CLARK MARIN DO 11/08/211802 Reviewed: Reviewed by Me Diagonstic Imaging: Xray Plain Films/CT/US/NM/MRI: chest (Right ribs 2 3 views and 1 view chest) Comments [facility], [place] NAME: LORA SINGLETARY [facility] REC#: [id number] PT STATUS: REG ER : 1950 PHYSICIAN: JASPAL ALONSO MD ADMIT DATE: 11/08/21/ER Signed Date of Exam:11/08/21 RIBS/UNILATERAL WITH CHEST PATIENT HISTORY: Fall. Right-sided rib pain. TECHNIQUE: 4 views of the chest and right ribs. COMPARISON: 12/23/2019. FINDINGS: The lung volumes are normal. No focal consolidation is seen. No large pleural effusion or pneumothorax is seen. The cardiomediastinal silhouette is normal in size and contour. Acute/subacute rib fractures are seen involving the 9th through 11th ribs. IMPRESSION: Acute/subacute rib fractures on the right involving the 9th through 11th ribs. No associated pleural effusion or pneumothorax. Dictated by: Dictated on workstation # [id number] Dict: 11/08/21 181 Trans: 11/08/211826 PJE [id number] Interpreted by: CLARK MARIN DO Electronically signed by: CLARK MARIN DO 11/08/211826 Reviewed: Reviewed by Me (JASPAL ALONSO) Departure Communication (Admissions) NAME: LORA SINGLETARY [facility] REC#: [id number] PT STATUS: REG ER : 1950 PHYSICIAN: JASPAL ALONSO MD ADMIT DATE: 11/08/21/ER Signed Date of Exam:11/08/21 CT HEAD/CERVICAL SPINE WO PROCEDURE: CT head and CT cervical spine without contrast. TECHNIQUE: Multiple contiguous axial images were obtained through the brain and cervical spine without the use of intravenous contrast. Sagittal and coronal reformations through the cervical spine were then performed. Auto Exposure Controls were utilized during the CT exam to meet ALARA standards for radiation dose reduction. INDICATION: Fall. Head and neck pain. COMPARISON: 12/23/2019. FINDINGS: CT head: No large acute territorial ischemia, mass or hemorrhage. No midline shift or mass effect. Old infarct is seen in the right occipital region. Decreased attenuation is seen in the periventricular and subcortical white matter. The ventricles and cortical sulci are prominent. The basilar cisterns are patent and unremarkable. The calvarium is intact. The visualized paranasal sinuses are clear. CT cervical spine: No acute fracture or dislocation is seen in the cervical spine. No focal osseous lesions. Vertebral body heights are well-maintained. The craniocervical junction is well-maintained. Mild degenerative changes are seen in the cervical spine with disc osteophyte complexes and uncovertebral arthropathy. Soft tissues of the neck are unremarkable. IMPRESSION: 1. No hemorrhage or focal intra-axial mass. No CT evidence of large acute territorial ischemia. 2. No acute fracture or dislocation in the cervical spine. 3. 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 Dictated by: Dictated on workstation # [id number] Dict: 11/08/211756 Trans: 11/08/211802 [facility] [id number] Interpreted by: CLARK MARIN DO Electronically signed by: CLARK MARIN DO 11/08/211802 NAME: LORA SINGLETARY [facility] REC#: [id number] PT STATUS: REG ER : 1950 PHYSICIAN: JASPAL ALONSO MD ADMIT DATE: 11/08/21/ER Signed Date of Exam:11/08/21 RIBS/UNILATERAL WITH CHEST PATIENT HISTORY: Fall. Right-sided rib pain. TECHNIQUE: 4 views of the chest and right ribs. COMPARISON: 12/23/2019. FINDINGS: The lung volumes are normal. No focal consolidation is seen. No large pleural effusion or pneumothorax is seen. The cardiomediastinal silhouette is normal in size and contour. Acute/subacute rib fractures are seen involving the 9th through 11th ribs. IMPRESSION: Acute/subacute rib fractures on the right involving the 9th through 11th ribs. No associated pleural effusion or pneumothorax. Dictated by: Dictated on workstation # [id number] Dict: 11/08/211818 Trans: 11/08/211826 [facility] [id number] Interpreted by: CLARK MARIN DO Electronically signed by: CLARK MARIN DO 11/08/211826 (JITENDRA RUBIO APRN) Impression Primary Impression: Right rib fracture Qualified Codes: S22.41XA - Multiple fractures of ribs, right side, initial encounter for closed fracture Additional Impression: Fall Qualified Codes: W19.XXXA - Unspecified fall, initial encounter Disposition: 01 HOME, SELF-CARE Condition: Stable Departure-Patient Inst. Decision time for Depature: 18:36 (JITENDRA RUBIO APRN) Referrals: NO,LOCAL PHYSICIAN (PCP) Primary Care Physician Patient Instructions: Rib Fractures in Adults Add. Discharge Instructions: 1. Use the incentive spirometer as directed 2. Pain medications as directed. Scripts Hydrocodone/Acetaminophen (Hydrocodone-Acetamin 5-325 mg) 1 Each Tablet 1 TAB PO Q4H PRN for PAIN-MODERATE (5-7), #14 TAB Prov: JITENDRA RUBIO APRN 11/08/21 JASPAL ALONSO Nov 08, 2021 17:36 JITENDRA RUBIO APRN Nov 08, 2021 18:35
[2021-11-08 17:39] LABS: BASOPHILS % (AUTO) 0 % (0-10); EOSINOPHILS # (AUTO) 0.1 10^3/uL (0.0-0.3); EOSINOPHILS % (AUTO) 0 % (0-10); HEMATOCRIT 41 % (40-54); HEMOGLOBIN 13.9 g/dL (13.3-17.7); LYMPHOCYTES # (AUTO) 1.7 10^3/uL (1.0-4.0); LYMPHOCYTES % (AUTO) 10 % (12-44); MEAN CORPUSCULAR HEMOGLOBIN 31 pg (25-34); MEAN CORPUSCULAR HGB CONC 34 g/dL (32-36); MEAN CORPUSCULAR VOLUME 93 fL (80-99); MEAN PLATELET VOLUME 10.6 fL (9.0-12.2); MONOCYTES # (AUTO) 0.8 10^3/uL (0.0-1.0); MONOCYTES % (AUTO) 5 % (0-12); NEUTROPHILS # (AUTO) 13.5 10^3/uL (1.8-7.8); NEUTROPHILS % (AUTO) 84 % (42-75); PLATELET COUNT 177 10^3/uL (130-400); WHITE BLOOD COUNT 16.1 10^3/uL (4.3-11.0)
[2021-11-08] MEDS ORDERED: LACTATED RINGERS 1,000 ML IV ONE (17:45)
[2021-11-08 17:48] LABS: ALBUMIN 4.4 GM/DL (3.2-4.5); CHLORIDE 97 MMOL/L (98-107); SODIUM 134 MMOL/L (135-145)
[2021-11-08 17:50] LABS: CALCIUM 9.6 MG/DL (8.5-10.1)
[2021-11-08 17:51] LABS: GLUCOSE 169 MG/DL (70-105); TOTAL PROTEIN 7.8 GM/DL (6.4-8.2)
[2021-11-08 17:52] LABS: CARBON DIOXIDE 22 MMOL/L (21-32)
[2021-11-08 17:53] LABS: BILIRUBIN,TOTAL 0.7 MG/DL (0.1-1.0)
[2021-11-08 17:54] LABS: ALKALINE PHOSPHATASE 71 U/L (40-136)
[2021-11-08 17:55] LABS: CREATININE SERUM 0.94 MG/DL (0.60-1.30); GFR ESTIMATED 79
[2021-11-08 17:56] LABS: BUN/CREATININE RATIO 17
[2021-11-08 17:58] LABS: ALANINE AMINOTRANSFERASE 22 U/L (0-55); CREATINE KINASE 354 U/L (30-200)
[2021-11-08 18:03] LABS: LYMPHOCYTES % (MANUAL) 14 %; MONOCYTES % (MANUAL) 6 %; NEUTROPHILS % (MANUAL) 80 %; RBC MORPH NORMAL
--- NOTE | 2021-11-08 18:03 | Diagnostic Imaging Report ---
PROCEDURE: CT head and CT cervical spine without contrast. TECHNIQUE: Multiple contiguous axial images were obtained through the brain and cervical spine without the use of intravenous contrast. Sagittal and coronal reformations through the cervical spine were then performed. Auto Exposure Controls were utilized during the CT exam to meet ALARA standards for radiation dose reduction. INDICATION: Fall. Head and neck pain. COMPARISON: 12/23/2019. FINDINGS: CT head: No large acute territorial ischemia, mass or hemorrhage. No midline shift or mass effect. Old infarct is seen in the right occipital region. Decreased attenuation is seen in the periventricular and subcortical white matter. The ventricles and cortical sulci are prominent. The basilar cisterns are patent and unremarkable. The calvarium is intact. The visualized paranasal sinuses are clear. CT cervical spine: No acute fracture or dislocation is seen in the cervical spine. No focal osseous lesions. Vertebral body heights are well-maintained. The craniocervical junction is well-maintained. Mild degenerative changes are seen in the cervical spine with disc osteophyte complexes and uncovertebral arthropathy. Soft tissues of the neck are unremarkable. IMPRESSION: 1. No hemorrhage or focal intra-axial mass. No CT evidence of large acute territorial ischemia. 2. No acute fracture or dislocation in the cervical spine. 3. 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 Dictated by: Dictated on workstation # [id number]
--- NOTE | 2021-11-08 18:23 | Diagnostic Imaging Report ---
PATIENT HISTORY: Fall. Right-sided rib pain. TECHNIQUE: 4 views of the chest and right ribs. COMPARISON: 12/23/2019. FINDINGS: The lung volumes are normal. No focal consolidation is seen. No large pleural effusion or pneumothorax is seen. The cardiomediastinal silhouette is normal in size and contour. Acute/subacute rib fractures are seen involving the 9th through 11th ribs. IMPRESSION: Acute/subacute rib fractures on the right involving the 9th through 11th ribs. No associated pleural effusion or pneumothorax. Dictated by: Dictated on workstation # [id number]
[2021-11-08] MEDS ORDERED: ACHD5005 PO (18:37)
[2021-11-08] MEDS ORDERED: morphine INJ 10 MG/ML 1ML (SYR OR VIAL) IVP STA (18:38)
[2021-11-08 20:11] LABS: BILIRUBIN,URINE NEGATIVE (NEGATIVE); CLARITY,URINE CLEAR; COLOR,URINE YELLOW; GLUCOSE, URINE (UA) TRACE (NEGATIVE); KETONES,URINE NEGATIVE (NEGATIVE); LEUKOCYTE ESTERASE ,URINE NEGATIVE (NEGATIVE); NITRITE,URINE NEGATIVE (NEGATIVE); PROTEIN,URINE NEGATIVE (NEGATIVE)
[2021-11-08 20:29] LABS: BACTERIA,URINE NEGATIVE /HPF; WBC,URINE 0-2 /HPF
[2021-11-08 20:32] LABS: AMPHETAMINE SCREEN, URINE NEGATIVE (NEGATIVE); BARBITURATE SCREEN URINE NEGATIVE (NEGATIVE); BENZODIAZEPINES SCREEN URINE NEGATIVE (NEGATIVE); CANNABINOID SCREEN, URINE NEGATIVE (NEGATIVE); COCAINE SCREEN URINE NEGATIVE (NEGATIVE); METHADONE STAT NEGATIVE (NEGATIVE); METHAMPHETAMINE SCREEN URINE S NEGATIVE (NEGATIVE); OPIATE SCREEN URINE POSITIVE (NEGATIVE); OXYCODONE STAT NEGATIVE (NEGATIVE); PROPOXYPHENE STAT NEGATIVE (NEGATIVE); TRICYCLIC ANTIDEPRESSANTS SCRE NEGATIVE (NEGATIVE)
[2021-11-08 21:02] VITALS: BP 129/70
== END 2021-11-08 21:02 | disposition home or self-care (01) ==
LOC: EDUNIT# 16:50 → ER 16:51
DX: S22.41XA Multiple fractures of ribs, right side, initial encounter for closed fracture (principal); I10 Essential (primary) hypertension; Z86.73 Personal history of transient ischemic attack (TIA), and cerebral infarction without residual deficits; Z79.01 Long term (current) use of anticoagulants; W18.30XA Fall on same level, unspecified, initial encounter
CPT/HCPCS: 70450; 71101; 72125; 80053; 80306; 81000; 82550; 85007; 85027; 86141; 94664; 99284; G0480; 36415; 80320

== ENCOUNTER 2022-03-25 06:28 | Outpatient (CLI) | payer MEDICARE, OTHER ==
[~2022-03-25] VITALS: Ht 182.9 cm; Wt 85.7 kg
[~2022-03-25 06:28] MED LIST changes: -ALBU8.5H9 IH; -BARIUM for suspension 96% w/w (Vanilla Silq Medium Density) PO ONE; -BARIUM for suspension 98% w/w (Vanilla Silq High Density) PO ONE; -DEXA2TAB PO; -GINK60TA2 PO; -TRAM50TA3 PO
[2022-03-25] MEDS ORDERED: DEXA2TAB PO (12:32)
[2022-03-25] MEDS ORDERED: ALBU8.5H9 IH (12:32)
[2022-03-25] MEDS ORDERED: GINK60TA2 PO (12:32)
[2022-03-25] MEDS ORDERED: TRAM50TA3 PO (12:32)
== END 2022-03-25 13:32 | disposition home or self-care (01) ==
LOC: PREOP 06:28
PROVIDERS: ATTEND Surgery
DX: Z01.818 Encounter for other preprocedural examination (principal)

== ENCOUNTER → 2022-03-25 | Outpatient (CLI) | payer MEDICARE, OTHER ==
[~2022-03-25] MED LIST changes: +ALBU8.5H9 IH; +BARIUM for suspension 96% w/w (Vanilla Silq Medium Density) PO ONE; +BARIUM for suspension 98% w/w (Vanilla Silq High Density) PO ONE; +DEXA2TAB PO; +GINK60TA2 PO; +TRAM50TA3 PO
--- NOTE | 2022-03-25 11:46 | Diagnostic Imaging Report ---
INDICATION: Hiatal hernia. TECHNIQUE: The patient ingested effervescent crystals as well as thin and thick barium and imaging over the esophagus was performed in multiple obliquities. 0.8 minutes of fluoroscopic time was utilized. 35 images were obtained. FINDINGS: The preliminary radiograph of the chest is unremarkable. The esophagus has a smooth contour. No mass or stricture is identified. The patient does have a very small sliding-type hiatal hernia. No significant gastroesophageal reflux was demonstrated. IMPRESSION: Small sliding-type hiatal hernia. The study is otherwise unremarkable. Dictated by: Dictated on workstation # [id number]
== END ==
LOC: RAD 09:41
PROVIDERS: ATTEND Surgery
DX: K44.9 Diaphragmatic hernia without obstruction or gangrene (principal)
CPT/HCPCS: 74220

== ENCOUNTER 2022-03-30 09:41 | Emergency (ER) | payer MEDICARE, OTHER ==
[~2022-03-30] VITALS: Ht 182 cm; Wt 86.0 kg
[~2022-03-30 09:41] MED LIST changes: +ALBU8.5H9 IH; +DEXA2TAB PO; +GINK60TA2 PO; +TRAM50TA3 PO
--- NOTE | 2022-03-30 11:13 | ED Neurological Problem ---
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 REPORTS COVERED HIS LT EYE W/ TAPE ET STATES THAT IMPROVED HIS VISION. STATES HE WAS ABLE TO GO FOR HIS DAILY RUN AT THAT TIME. STATES WHEN HE WOKE TODAY, VISION WAS IMPROVED BUT THE DAY HAS GONE BY SYMPTOMS HAVE WORSENED. NO OTHER C/O VOICED. Source: patient Exam Limitations: no limitations History of Present Illness Date Seen by Provider: March 30, 2022 Time Seen by Provider: 11:11 Initial Comments To ER with double vision that he noticed yesterday. It then went away and recurred today. He put some tape over one of his eyes and taped a cover over the outside of his glasses as well and reports that that did help with his symptoms. He denies any other symptoms. Timing/Duration: 24 hours Associated Symptoms: denies symptoms Allergies and Home Medications Allergies Coded Allergies: No Known Drug Allergies (Unverified , 11/23/14) Patient Home Medication List Home Medication List Reviewed: Yes Albuterol Sulfate (Proair Hfa) 90 Mcg Hfa.aer.ad, 8.5 GM IH PRN, (Reported) Entered as Reported by: DHARA MADRID on 03/25/22 1232 Atorvastatin Calcium (Lipitor) 80 Mg Tablet, 80 MG PO DAILY, (Reported) Entered as Reported by: MARGARITA SOUZA on 10/31/18 1103 Biotin (Biotin) 1,000 Mcg Tablet, 1,000 MCG PO DAILY, (Reported) Entered as Reported by: MARGARITA SOUZA on 10/31/18 1259 Cetirizine HCl (Zyrtec) 10 Mg Tablet, 10 MG PO DAILY, (Reported) Entered as Reported by: MARGARITA SOUZA on 02/02/19 1216 Clopidogrel Bisulfate (Clopidogrel) 75 Mg Tablet, 75 MG PO DAILY, (Reported) Entered as Reported by: MARGARITA SOUZA on 10/31/18 1103 Dexamethasone (Dexamethasone) 2 Mg Tablet, 2 MG PO BID, (Reported) Entered as Reported by: DHARA MADRID on 03/25/22 1232 Ginkgo Biloba (Ginkgo) 60 Mg Tablet, 60 MG PO DAILY, (Reported) Entered as Reported by: DHARA MADRID on 03/25/22 1232 Hydrocodone/Acetaminophen (Hydrocodone-Acetamin 5-325 mg) 1 Each Tablet, 1 TAB PO Q4H PRN for PAIN-MODERATE (5-7) Prescribed by: JITENDRA RUBIO on 11/08/21 1837 Lisinopril/Hydrochlorothiazide (Lisinopril-Hctz 20-25 mg Tab) 1 Each Tablet, 1 TAB PO DAILY, (Reported) Entered as Reported by: MARGARITA SOUZA on 10/31/18 1259 Pantoprazole Sodium (Protonix) 40 Mg Tablet.dr, 40 MG PO DAILY Prescribed by: SRAVAN ANDERSON on 03/15/19 0815 Propranolol HCl (Propranolol HCl) 10 Mg Tablet, 10 MG PO BID, (Reported) Entered as Reported by: MARGARITA SOUZA on 10/31/18 110 Tramadol HCl (Tramadol HCl) 50 Mg Tablet, 50 MG PO QID, (Reported) Entered as Reported by: DHARA MADRID on 03/25/22 1232 Discontinued Medications Ginkgo Biloba (Ginkgo Biloba) 120 Mg Tablet, 120 MG PO DAILY, (Reported) Discontinued Reason: No Longer Taking Entered as Reported by: MARGARITA SOUZA on 10/31/18 1259 Multivitamin (Multivitamins) 1 Each Tablet, 1 TAB PO DAILY, (Reported) Discontinued Reason: No Longer Taking Entered as Reported by: MARGARITA SOUZA on 10/31/18 1103 Sucralfate (Carafate) 1 Gm Tablet, 1 GM PO QID Discontinued Reason: No Longer Taking Prescribed by: SRAVAN ANDERSON on 03/15/19 0815 Tramadol HCl (Tramadol HCl) 50 Mg Tablet, 100 MG PO TID, (Reported) Discontinued Reason: No Longer Taking Entered as Reported by: MARGARITA SOUZA on 10/31/18 1103 Review of Systems Review of Systems Constitutional: see HPI Eyes: See HPI, Other (double vision) Ears, Nose, Mouth, Throat: no symptoms reported Respiratory: no symptoms reported Cardiovascular: no symptoms reported Genitourinary: no symptoms reported Musculoskeletal: no symptoms reported Skin: no symptoms reported Psychiatric/Neurological: No Symptoms Reported Endocrine: No Symptoms Reported Past Ubprvcl-Wvzgxb-Cwennl Hx Patient Social History Tobacco Use?: No Use of E-Cig and/or Vaping dev: No Substance use?: No Alcohol Use?: Yes Alcohol type: Beer Pt feels they are or have been: No Immunizations Up To Date Tetanus Booster (TDap): Unknown PED Vaccines UTD: Yes First/Initial COVID19 Vaccinat: 2020 Second COVID19 Vaccination Ander: 2020 Seasonal Allergies Seasonal Allergies: No Past Medical History Surgeries: Yes (HERNIA REPAIR) Orthopedic Respiratory: No (was on oxygen) Pneumonia Currently Using CPAP: No Currently Using BIPAP: No Cardiac: Yes Hypertension Neurological: Yes TIA Reproductive Disorders: No Sexually Transmitted Disease: No HIV/AIDS: No Genitourinary: Yes Benign Prostatic Hyperpl Gastrointestinal: Yes (dysphagia) Musculoskeletal: Yes Arthritis Endocrine: No HEENT: No Loss of Vision: Left Hearing Impairment: Denies Cancer: Yes Prostate Psychosocial: No Integumentary: No Blood Disorders: No Adverse Reaction/Blood Tranf: No Family Medical History Hypertension 19 FATHER Hypertension Physical Exam Vital Signs Vital Signs - First Documented 03/30/22 10:06 Temp 36.3 Pulse 56 Resp 20 B/P (MAP) 142/80 (100) Pulse Ox 94 O2 Delivery Room Air Capillary Refill : Less Than 3 Seconds Height, Weight, BMI Height: 6'0.00" Weight: 188lbs. 0.0oz. [id number]; 25.00 BMI Method:Stated General Appearance: WD/WN, no apparent distress HEENT: PERRL/EOMI, normal ENT inspection, TMs normal, other (No nystagmus, no skew) Neck: non-tender, full range of motion Respiratory: no respiratory distress, no accessory muscle use Cardiovascular: regular rate, rhythm, no murmur Gastrointestinal: normal bowel sounds, non tender, soft Extremities: normal range of motion, non-tender Neurologic/Psychiatric: alert, normal mood/affect, oriented x 3 Crainal Nerves: normal hearing, normal speech, PERRL Motor/Sensory: no motor deficit, no sensory deficit Skin: normal color, warm/dry Stroke Stroke Thrombolytic Exclusion Age 18 or Over: Yes History of CVA: No Severe Hypertension: No GI or Bleed: No Subarachnoid Hemorrhage: No Intracranial Neoplasm/Aneurysm: No Puncture of Non-Compressible V: No Recent CPR: No Diabetic Hemorrhagic Retinopat: No Organ Biopsy: No Recent Obstetric Delivery: No Significant Hepatic Dysfunctio: No NIH Stoke Scale >22: No Improving Symptoms: No Progress/Results/Core Measures Results/Orders My Orders Orders - JITENDRA RUBIO APRN Ct Head Wo (03/30/22 11:05) Vital Signs/I&O 03/30/22 10:06 Temp 36.3 Pulse 56 Resp 20 B/P (MAP) 142/80 (100) Pulse Ox 94 O2 Delivery Room Air Blood Pressure Mean: 100 Departure Communication (Admissions) Spoke with Dr. Lopez, we could admit the patient versus home, start a baby aspirin and MRI brain outpatient. He has no other deficits. NIH of 0 though the NIH is insensitive for posterior circulation stroke. I did discuss with him that this may very well represent an ischemic infarct or stroke. He agrees to start a baby aspirin at home, he will call to schedule the brain MRI. Return for any new or worsening symptoms. He states that he seems to notice some listing to the left side when he walks. I do not notice this when watching him walk. However given that symptom I did recommend him to stay in the hospital overnight but he states he is not interested in doing that and wants to go home for outpatient work-up. I have written him an order for an MRI. Impression Primary Impression: Double vision Disposition: 01 HOME, SELF-CARE Condition: Stable Departure-Patient Inst. Decision time for Depature: 11:37 Referrals: KARLI LOPEZ MD (PCP/Family) Primary Care Physician CONOR SAGASTUME OD Patient Instructions: Double Vision (DC) Add. Discharge Instructions: 1. Call scheduling department to make an appointment for the MRI brain. The report will be called to Dr. Lopez. Return to ER for any new or worsening symptoms All discharge instructions reviewed with patient and/or family. Voiced understanding. JITENDRA RUBIO APRN March 30, 2022 11:13
--- NOTE | 2022-03-30 11:31 | Diagnostic Imaging Report ---
PROCEDURE: CT head without contrast. TECHNIQUE: Multiple contiguous axial images were obtained through the brain without the use of intravenous contrast. Auto Exposure Controls were utilized during the CT exam to meet ALARA standards for radiation dose reduction. INDICATION: Double vision. Comparison is made with prior head CT from 11/08/2021. Ventricles and sulci are stable in appearance. 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 No sulcal effacement or midline shift is identified. No acute intra-axial or extra-axial hemorrhage is detected. Cisterns are patent. Visualized paranasal sinuses are clear. IMPRESSION: Stable chronic changes. No acute intra-cranial process is detected. Dictated by: Dictated on workstation # [id number]
[2022-03-30 12:25] VITALS: BP 136/76
== END 2022-03-30 12:25 | disposition home or self-care (01) ==
LOC: EDUNIT# 09:41 → ER 09:42
DX: H53.2 Diplopia (principal)
CPT/HCPCS: 70450

== ENCOUNTER 2022-04-06 19:58 | Inpatient (IN) | payer MEDICARE, OTHER ==
[~2022-04-06] VITALS: Ht 185 cm; Wt 84.5 kg
[2022-04-06] MEDS ORDERED: LACTATED RINGERS 1,000 ML IV ONE ×2 (20:15→22:00)
[2022-04-06 20:20] LABS: BASOPHILS % (AUTO) 0 % (0-10); EOSINOPHILS # (AUTO) 0.1 10^3/uL (0.0-0.3); EOSINOPHILS % (AUTO) 1 % (0-10); HEMATOCRIT 35 % (40-54); HEMOGLOBIN 12.5 g/dL (13.3-17.7); LYMPHOCYTES # (AUTO) 0.9 10^3/uL (1.0-4.0); LYMPHOCYTES % (AUTO) 10 % (12-44); MEAN CORPUSCULAR HEMOGLOBIN 31 pg (25-34); MEAN CORPUSCULAR HGB CONC 35 g/dL (32-36); MEAN CORPUSCULAR VOLUME 88 fL (80-99); MEAN PLATELET VOLUME 10.2 fL (9.0-12.2); MONOCYTES # (AUTO) 0.8 10^3/uL (0.0-1.0); MONOCYTES % (AUTO) 9 % (0-12); NEUTROPHILS # (AUTO) 7.1 10^3/uL (1.8-7.8); NEUTROPHILS % (AUTO) 80 % (42-75); PLATELET COUNT 148 10^3/uL (130-400); WHITE BLOOD COUNT 8.9 10^3/uL (4.3-11.0)
[2022-04-06 20:22] LABS: CHLORIDE 97 MMOL/L (98-107); POTASSIUM 3.8 MMOL/L (3.6-5.0); SODIUM 137 MMOL/L (135-145)
[2022-04-06 20:23] LABS: ALBUMIN 3.9 GM/DL (3.2-4.5)
[2022-04-06 20:24] LABS: CALCIUM 9.3 MG/DL (8.5-10.1)
[2022-04-06 20:25] LABS: GLUCOSE 190 MG/DL (70-105); TOTAL PROTEIN 6.4 GM/DL (6.4-8.2)
[2022-04-06 20:26] LABS: BILIRUBIN,URINE NEGATIVE (NEGATIVE); CLARITY,URINE CLEAR; COLOR,URINE YELLOW; GLUCOSE, URINE (UA) 2+ (NEGATIVE); KETONES,URINE NEGATIVE (NEGATIVE); LEUKOCYTE ESTERASE ,URINE NEGATIVE (NEGATIVE); NITRITE,URINE NEGATIVE (NEGATIVE); PROTEIN,URINE NEGATIVE (NEGATIVE)
[2022-04-06 20:26] LABS: CARBON DIOXIDE 24 MMOL/L (21-32)
[2022-04-06 20:27] LABS: BILIRUBIN,TOTAL 1.3 MG/DL (0.1-1.0)
[2022-04-06 20:28] LABS: PROTHROMBIN TIME PATIENT 13.2 SEC (12.2-14.7)
[2022-04-06 20:29] LABS: ALKALINE PHOSPHATASE 86 U/L (40-136); GFR ESTIMATED 95
[2022-04-06 20:30] LABS: BUN/CREATININE RATIO 10
[2022-04-06 20:32] LABS: RBC,URINE RARE /HPF; WBC,URINE RARE /HPF
[2022-04-06 20:32] LABS: ALANINE AMINOTRANSFERASE 24 U/L (0-55); MAGNESIUM 1.7 MG/DL (1.6-2.4)
[2022-04-06 20:33] LABS: BACTERIA,URINE NEGATIVE /HPF
[2022-04-06 20:33] LABS: CREATINE KINASE 625 U/L (30-200)
[2022-04-06 20:42] LABS: AMPHETAMINE SCREEN, URINE NEGATIVE (NEGATIVE); BARBITURATE SCREEN URINE NEGATIVE (NEGATIVE); BENZODIAZEPINES SCREEN URINE NEGATIVE (NEGATIVE); CANNABINOID SCREEN, URINE NEGATIVE (NEGATIVE); COCAINE SCREEN URINE NEGATIVE (NEGATIVE); METHADONE STAT NEGATIVE (NEGATIVE); OPIATE SCREEN URINE NEGATIVE (NEGATIVE); OXYCODONE STAT NEGATIVE (NEGATIVE); PROPOXYPHENE STAT NEGATIVE (NEGATIVE); TRICYCLIC ANTIDEPRESSANTS SCRE POSITIVE (NEGATIVE)
[2022-04-06 20:42] LABS: ERYTHROCYTE SEDIMENTATION RATE 22 MM/HR (0-30)
--- NOTE | 2022-04-06 20:43 | ED Neurological Problem ---
General Chief Complaint: Neurological Problems Stated Complaint: SEIZURE Source: patient (PT IS CONFUSED, AND UNABLE TO GIVE RELIABLE INFORMATION), EMS, old records Exam Limitations: clinical condition History of Present Illness Date Seen by Provider: Apr 06, 2022 Time Seen by Provider: 20:00 Initial Comments PT ARRIVES VIA EMS FROM HOME PT HAD A WITNESSED SEIZURE AT HOME, LASTING APPROXIMATELY 20 SECONDS--WITNESSED BY SISTER PT WAS SITTING IN A CHAIR AT THE TIME, NO REPORTED INJURY FROM THE SEIZURE, OTHER THAN BITING HIS LOWER LIP PT IS AWAKE ON ARRIVAL BUT APPEARS POST-ICTAL. PT IS ABLE TO TALK AND ANSWER A FEW QUESTIONS, BUT IS CONFUSED, WITH SLOW MENTATION AND SLIGHTLY SLURRED SPEECH. PT HAS BEEN INCONTINENT OF URINE NO HISTORY OF SEIZURES PT HAS CHRONIC DAILY ALCOHOL USE--PT STATES HE DRINKS VODKA--AMOUNT IS UNKNOWN, PT IS UNABLE TO STATE HOW MUCH HE DRINKS, AND SISTER DOES NOT KNOW HOW MUCH HE DRINKS BYSTANDER AT HOME/SISTER, REPORTED TO EMS THAT HE HAS NOT HAD ANY ALCOHOL IN 2 DAYS. PT WITH HISTORY OF FREQUENT FALLS AND HAS MULTIPLE OLD BRUISES ALL OVER BODY, BUT NO BRUISES APPEAR ACUTE FROM TODAY PT WAS ADMITTED TO [facility] ON 04/01/22-04/02/22 FOR 1 WEEK HISTORY OF DOUBLE VISION AND POOR BALANCE. WORK UP THERE WAS NEGATIVE FOR ACUTE NEUROLOGICAL PROCESS. PT WAS ACUTELY INTOXICATED ON ARRIVAL THERE. DISMISSAL PAPERWORK IS BROUGHT WITH PATIENT. DID SHOW CHRONIC RIGHT VERTEBRAL ARTERY OCCLUSION, WITH GOOD BILATERAL CAROTID ARTERY FLOW. 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 PCP:DR. ANTUNEZ Allergies and Home Medications Allergies Coded Allergies: No Known Drug Allergies (Unverified , 11/23/14) Patient Home Medication List Home Medication List Reviewed: Yes Atorvastatin Calcium (Lipitor) 80 Mg Tablet, 80 MG PO DAILY, (Reported) Entered as Reported by: MARGARITA SOUZA on 10/31/18 1103 Last Action: Reviewed Fexofenadine HCl (Fexofenadine HCl) 180 Mg Tablet, 180 MG PO DAILY PRN for ALLERGIES, (Reported) Entered as Reported by: GINNA PARDO on 04/07/22 1530 Last Action: Reviewed Folic Acid (Folic Acid) 1 Mg Tablet, 1 MG PO DAILY, (Reported) Entered as Reported by: GINNA PARDO on 04/07/22 1529 Last Action: Reviewed Propranolol HCl (Propranolol HCl) 10 Mg Tablet, 10 MG PO BID, (Reported) Entered as Reported by: MARGARITA SOUZA on 10/31/18 1103 Last Action: Reviewed Thiamine HCl (B-1) 100 Mg Tablet, 100 MG PO DAILY, (Reported) Entered as Reported by: GINNA PARDO on 04/07/22 153 Last Action: Reviewed Tramadol HCl (Tramadol HCl) 50 Mg Tablet, 50 MG PO TID, (Reported) Entered as Reported by: DHARA MADRID on 03/25/22 123 Last Action: Reviewed [Nugenix] , 1 EACH PO DAILY, (Reported) Entered as Reported by: GINNA PARDO on 04/07/221531 Last Action: Reviewed [Prevagen] TAB, 1 EACH PO DAILY, (Reported) Entered as Reported by: GINNA PARDO on 04/07/221530 Last Action: Reviewed Discontinued Medications Ginkgo Biloba (Ginkgo) 60 Mg Tablet, 60 MG PO DAILY, (Reported) Discontinued Reason: No Longer Taking Entered as Reported by: DHARA MADRID on 03/25/22 123 Last Action: Discontinued Review of Systems Review of Systems Constitutional: other (PT UNABLE TO GIVE RELIABLE INFORMATION AT THIS TIME) Psychiatric/Neurological: See HPI Past Aapbdvv-Hfxvtn-Ywlodo Hx Patient Social History Alcohol Use?: Yes Alcohol type: Hard Liquor Alcohol Frequency: Daily Immunizations Up To Date Tetanus Booster (TDap): Unknown PED Vaccines UTD: Yes First/Initial COVID19 Vaccinat: 2020 Second COVID19 Vaccination Ander: 2020 Seasonal Allergies Seasonal Allergies: Yes Past Medical History Surgeries: Yes (HERNIA REPAIR) Abdominal, Orthopedic Respiratory: Yes (HAS BEEN ON HOME O2 IN PAST) Pneumonia Currently Using CPAP: No Currently Using BIPAP: No Cardiac: Yes (JERRY) High Cholesterol, Hypertension Neurological: Yes TIA Reproductive Disorders: No Sexually Transmitted Disease: No HIV/AIDS: No Genitourinary: Yes Benign Prostatic Hyperpl Gastrointestinal: Yes (dysphagia) Musculoskeletal: Yes Arthritis Endocrine: No HEENT: No Loss of Vision: Left Hearing Impairment: Denies Cancer: Yes Prostate Psychosocial: No Integumentary: No Blood Disorders: No Adverse Reaction/Blood Tranf: No Family Medical History Hypertension 19 FATHER Hypertension Physical Exam Vital Signs Vital Signs - First Documented 04/06/22 20:00 Temp 36.5 Pulse 9 Resp 20 B/P (MAP) 151/81 (104) Pulse Ox 97 O2 Delivery Nasal Cannula O2 Flow Rate 2.00 Capillary Refill : Height, Weight, BMI Height: 6'0.00" Weight: 188lbs. 0.0oz. 85.851983rs; 25.00 BMI Method:Stated General Appearance: WD/WN, no apparent distress, other (PT APPEARS POST-ICTAL, SLOW MENTATION, SPEECH SLIGHTLY SLURRED/THICK-TONGUED. HAS BEEN INCONTINENT OF URINE. ) HEENT: PERRL/EOMI, TMs normal, pharynx normal, other (ABRASION TO LOWE LIP. NO ACTIVE BLEEDING. ) Neck: non-tender, full range of motion, supple, normal inspection Respiratory: normal breath sounds, no respiratory distress, no accessory muscle use Cardiovascular: normal peripheral pulses, regular rate, rhythm, no edema, no JVD, no murmur Gastrointestinal: normal bowel sounds, non tender, soft, no organomegaly Back: no CVA tenderness Extremities: normal range of motion, non-tender, normal inspection, no pedal edema, no calf tenderness, normal capillary refill Neurologic/Psychiatric: no motor/sensory deficits, alert, other (SOMEWHAT CONFUSED TO TIME, SITUATION. KNOWS NAME AND HOSPITAL. DOES NOT RECALL EVENTS. SPEECH AND MENTATION SLOW. SPEECH SOMEWHAT SLURRED. ) Crainal Nerves: PERRL Motor/Sensory: no motor deficit, no sensory deficit, no pronator drift Skin: normal color, warm/dry, ecchymosis (MULTIPLE OLD BRUISES OF VARIOUS AGES OVER MOST OF BODY. PT HAS A VERY LARGE BRUISE TO ENTIRE LEFT BUTTOCK, CROSSING OVER MIDLINE AT UPPER BUTTOCK AREA. DARK PURPLE IN COLOR. HAS LARGE, OLDER APPEARING BRUISE TO LEFT UPPER/LATERAL THIGH--YELLOW/BROWN IN COLOR. ) Stroke Stroke Thrombolytic Exclusion Age 18 or Over: Yes History of CVA: No Severe Hypertension: No GI or Bleed: No Subarachnoid Hemorrhage: No Intracranial Neoplasm/Aneurysm: No Puncture of Non-Compressible V: No Recent CPR: No Diabetic Hemorrhagic Retinopat: No Organ Biopsy: No Recent Obstetric Delivery: No Significant Hepatic Dysfunctio: No NIH Stoke Scale >22: No Improving Symptoms: No Progress/Results/Core Measures Results/Orders Lab Results Laboratory Tests Test 04/06/22 20:05 04/06/22 20:15 04/06/22 20:19 Range/Units White Blood Count 8.9 4.3-11.0 10^3/uL Red Blood Count 4.01 L 4.30-5.52 10^6/uL Hemoglobin 12.5 L 13.3-17.7 g/dL Hematocrit 35 L 40-54 % Mean Corpuscular Volume 88 80-99 fL Mean Corpuscular Hemoglobin 31 25-34 pg Mean Corpuscular Hemoglobin Concent 35 32-36 g/dL Red Cell Distribution Width 13.4 10.0-14.5 % Platelet Count 148 130-400 10^3/uL Mean Platelet Volume 10.2 9.0-12.2 fL Immature Granulocyte % (Auto) 0 % Neutrophils (%) (Auto) 80 H 42-75 % Lymphocytes (%) (Auto) 10 L 12-44 % Monocytes (%) (Auto) 9 0-12 % Eosinophils (%) (Auto) 1 0-10 % Basophils (%) (Auto) 0 0-10 % Neutrophils # (Auto) 7.1 1.8-7.8 10^3/uL Lymphocytes # (Auto) 0.9 L 1.0-4.0 10^3/uL Monocytes # (Auto) 0.8 0.0-1.0 10^3/uL Eosinophils # (Auto) 0.1 0.0-0.3 10^3/uL Basophils # (Auto) 0.0 0.0-0.1 10^3/uL Immature Granulocyte # (Auto) 0.0 0.0-0.1 10^3/uL Erythrocyte Sedimentation Rate 22 0-30 MM/HR Prothrombin Time 13.2 12.2-14.7 SEC INR Comment 1.0 0.8-1.4 Activated Partial Thromboplast Time 28 24-35 SEC Sodium Level 137 135-145 MMOL/L Potassium Level 3.8 3.6-5.0 MMOL/L Chloride Level 97 L 98-107 MMOL/L Carbon Dioxide Level 24 21-32 MMOL/L Anion Gap 16 H 5-14 MMOL/L Blood Urea Nitrogen 8 7-18 MG/DL Creatinine 0.80 0.60-1.30 MG/DL Estimat Glomerular Filtration Rate 95 BUN/Creatinine Ratio 10 Glucose Level 190 H 70-105 MG/DL Calcium Level 9.3 8.5-10.1 MG/DL Corrected Calcium 9.4 8.5-10.1 MG/DL Magnesium Level 1.7 1.6-2.4 MG/DL Total Bilirubin 1.3 H 0.1-1.0 MG/DL Aspartate Amino Transf (AST/SGOT) 36 H 5-34 U/L Alanine Aminotransferase (ALT/SGPT) 24 0-55 U/L Alkaline Phosphatase 86 40-136 U/L Total Creatine Kinase 625 H 30-200 U/L Creatine Kinase MB 6.4 <6.6 NG/ML Myoglobin 231.7 H 10.0-92.0 NG/ML Troponin I 0.038 H <0.028 NG/ML C-Reactive Protein High Sensitivity 2.13 H 0.00-0.50 MG/DL Total Protein 6.4 6.4-8.2 GM/DL Albumin 3.9 3.2-4.5 GM/DL Procalcitonin 0.07 <0.10 NG/ML Acetaminophen Level < 10 L 10-30 UG/ML Serum Alcohol < 10 <10 MG/DL Influenza Type A (RT-PCR) Not Detected Not Detecte Influenza Type B (RT-PCR) Not Detected Not Detecte SARS-CoV-2 RNA (RT-PCR) Not Detected Not Detecte Urine Color YELLOW Urine Clarity CLEAR Urine pH 6.0 5-9 Urine Specific [place] <=1.005 1.016-1.022 Urine Protein NEGATIVE NEGATIVE Urine Glucose (UA) 2+ H NEGATIVE Urine Ketones NEGATIVE NEGATIVE Urine Nitrite NEGATIVE NEGATIVE Urine Bilirubin NEGATIVE NEGATIVE Urine Urobilinogen 0.2 < = 1.0 MG/DL Urine Leukocyte Esterase NEGATIVE NEGATIVE Urine RBC (Auto) TRACE-I H NEGATIVE Urine RBC RARE /HPF Urine WBC RARE /HPF Urine Squamous Epithelial Cells NONE /HPF Urine Renal Epithelial Cells NONE /HPF Urine Crystals NONE /LPF Urine Bacteria NEGATIVE /HPF Urine Casts NONE /LPF Urine Mucus NEGATIVE /LPF Urine Culture Indicated NO Urine Opiates Screen NEGATIVE NEGATIVE Urine Oxycodone Screen NEGATIVE NEGATIVE Urine Methadone Screen NEGATIVE NEGATIVE Urine Propoxyphene Screen NEGATIVE NEGATIVE Urine Barbiturates Screen NEGATIVE NEGATIVE Ur Tricyclic Antidepressants Screen POSITIVE H NEGATIVE Urine Phencyclidine Screen NEGATIVE NEGATIVE Urine Amphetamines Screen NEGATIVE NEGATIVE Urine Methamphetamines Screen NEGATIVE NEGATIVE Urine Benzodiazepines Screen NEGATIVE NEGATIVE Urine Cocaine Screen NEGATIVE NEGATIVE Urine Cannabinoids Screen NEGATIVE NEGATIVE My Orders Orders - CAITLIN SAUCEDO DO Ed Iv/Invasive Line Start (04/06/22 20:06) Ekg Tracing (04/06/22 20:06) O2 (04/06/22 20:06) Monitor-Rhythm Ecg Trace Only (04/06/22 20:06) Ed Iv/Invasive Line Start (04/06/22 20:06) Ct Head/Cervical Spine Wo (04/06/22 20:07) Acetaminophen (04/06/22 20:07) Alcohol (04/06/22 20:07) Cbc With Automated Diff (04/06/22 20:07) Comprehensive Metabolic Panel (04/06/22 20:07) Creatine Kinase (04/06/22 20:07) Creatine Kinase Mb (04/06/22 20:07) Hs C Reactive Protein (04/06/22 20:07) Drug Screen Stat (Urine) (04/06/22 20:07) Magnesium (04/06/22 20:07) Protime With Inr (04/06/22 20:07) Partial Thromboplastin Time (04/06/22 20:07) Ua Culture If Indicated (04/06/22 20:07) Erythrocyte Sedimentation Rate (04/06/22 20:07) Myoglobin Serum (04/06/22 20:07) Troponin I Amado (04/06/22 20:07) Ed Iv/Invasive Line Start (04/06/22 20:07) Lactated Ringers (Lr 1000 Ml Iv Solution (04/06/22 20:15) Procalcitonin (Pct) (04/06/22 20:07) Chest 1 View, Ap/Pa Only (04/06/22 20:07) Covid 19 Inhouse Test (04/06/22 20:07) Influenza A And B By Pcr (04/06/22 20:07) Isolation Central Supply Req (04/06/22 20:07) Straight Cath For Spec.-Adult (04/06/22 20:16) Ct Thoracic/Lumbar Spine Wo (04/06/22 21:09) Pelvis (04/06/22 21:09) Medications Given in ED Vital Signs/I&O 04/06/22 04/06/22 20:00 20:05 Temp 36.5 Pulse 9 Resp 20 B/P (MAP) 151/81 (104) Pulse Ox 97 O2 Delivery Nasal Cannula Nasal Cannula O2 Flow Rate 2.00 2.00 Progress Progress Note : Progress Note GIVEN IV FLUIDS PT HAD INCREASING AGITATION, HALLUCINATING, CONFUSION, PULLING OUT CATHETER, TRYING TO PULL OUT IV, ETC.--GIVEN ATIVAN WITH IMPROVEMENT IN AGITATION SISTER IS IN ROOM LATER, AND SHE REPORTS THAT PT LIVES BY HIMSELF AND HAS BEEN BY HIMSELF SINCE HE WAS DISMISSED FROM [place]. SHE BELIEVES THAT HE HAS NOT HAD ANY ALCOHOL IN 2 DAYS SHE STATES THAT PT TOLD HER THAT HE HAS "FALLEN" A COUPLE OF TIMES IN THE LAST COUPLE OF DAYS--SINCE BEING DISMISSED FROM [place]--AND SUSTAINED LARGE BRUISE TO HIS LEFT BUTTOCK AREA. THESE "FALLS" HAVE NOT BEEN WITNESSED BY ANYONE. NO SEIZURE ACTIVITY DURING ER STAY Initial ECG Impression Date: Apr 06, 2022 Initial ECG Impression Time: 20:10 Initial ECG Rate: 84 Initial ECG Rhythm: Normal Sinus Diagnostic Imaging Comments CT HEAD/CERVICAL SPINE--PER RADIOLOGIST REPORT AT 2104 CT HEAD: The globes and orbits appear normal. There are no facial fractures seen. There is an area of encephalomalacia in the right occipital lobe. There is generalized atrophy. There are no masses or hemorrhages. There are no extra-axial fluid collections. There is a small left frontal scalp hematoma. IMPRESSION: 1. Senescent changes of the brain. 2. Old right occipital infarct. 3. Small left frontal scalp hematoma. CT CERVICAL SPINE: Vertebral body height and alignment appear normal. There are diffuse degenerative changes of the discs throughout the cervical spine. There are also degenerative changes of the uncovertebral joints. There is joint space narrowing and hypertrophic changes. There are no fractures or prevertebral soft tissue swelling. IMPRESSION: 1. Diffuse degenerative changes of the cervical spine. No acute abnormality is seen. CXR--PER RADIOLOGIST REPORT AT 2104 FINDINGS: The heart size and pulmonary vascularity are normal. Lungs are clear. There are no effusions or pneumothoraces. IMPRESSION: Negative chest. CT CHEST/ABDOMEN/PELVIS PER RADIOLOGIST REPORT AT 2199 FINDINGS: Thyroid: The visualized thyroid gland is normal. Mediastinum: Heart size is normal without significant pericardial effusion. Calcifications of the aorta and coronary vessels. Thoracic aorta is normal in caliber. No suspicious lymphadenopathy. Lungs and airways: The lungs are clear without consolidation, pleural effusion, or pneumothorax. There is a calcified granuloma within the right upper lobe. The airways are normal. Solid organs: The liver is normal without focal lesion. The gallbladder is normal. There is no biliary ductal dilation. Pancreas is normal. Spleen is normal. Adrenal glands are normal. There are bilateral renal cysts which require no follow-up. No hydronephrosis. Bowel: The stomach and small bowel are normal without obstruction. Scattered colonic diverticulosis. The appendix is normal. Peritoneum: There is no intraperitoneal free fluid or free air. No suspicious lymphadenopathy. Vasculature: Calcification of the aorta without aneurysm. Musculoskeletal: There is a new compression fracture of the T12 vertebral body compared to 12/23/2019. There is prominence of the left gluteal musculature which could represent underlying hematoma. Pelvis: Fiducial markers are present within the prostate gland. The urinary bladder is normal. IMPRESSION: 1. Compression fracture of the T12 vertebral body. 2. No other acute abnormality within the chest, abdomen or pelvis. 3. Likely left gluteal muscle hematoma. 4. Colonic diverticulosis. CT THORACIC/LUMBAR SPINE, PER RADIOLOGIST REPORT AT 2199 FINDINGS: The vertebral alignment is normal. There is mild diffuse spondylosis. There is a compression fracture at the superior endplate of T12. IMPRESSION: Compression fracture at the superior endplate of T12. PELVIS XRAY--PER RADIOLOGIST REPORT AT 2199 FINDINGS: AP view pelvis shows no fracture or dislocation. Hip joints are unremarkable. IMPRESSION: Unremarkable pelvis. Reviewed: Reviewed by Me Departure Communication (Admissions) [id number]--SPOKE WITH DR. ANTUNEZ, ACCEPTS PT FOR ADMIT ON ALCOHOL WITHDRAWL PROTOCOL Impression Primary Impression: NEW ONSET ALCOHOL WITHDRAWL SEIZURE Additional Impressions: Alcohol withdrawal delirium Delirium tremens T12 compression fracture Scalp hematoma LEFT BUTTOCK HEMATOMA/CONTUSION HTN (hypertension) Chronic alcohol abuse Hyperglycemia Disposition: ADMITTED INPATIENT Condition: Stable Admissions Decision to Admit Reason: Admit from ER (General) Decision to Admit/Date: Apr 06, 2022 Time/Decision to Admit Time: 21:20 Departure-Patient Inst. Referrals: KARLI ANTUNEZ MD (PCP/Family) Primary Care Physician CAITLIN SAUCEDO DO Apr 06, 2022 20:43
--- NOTE | 2022-04-06 21:03 | Diagnostic Imaging Report ---
PROCEDURE: CT head and CT cervical spine without contrast. TECHNIQUE: Multiple contiguous axial images were obtained through the brain and cervical spine without the use of intravenous contrast. Sagittal and coronal reformations through the cervical spine were then performed. Auto Exposure Controls were utilized during the CT exam to meet ALARA standards for radiation dose reduction. INDICATION: Three falls over the past 3 days, seizures, diplopia. CT HEAD: The globes and orbits appear normal. There are no facial fractures seen. There is an area of encephalomalacia in the right occipital lobe. There is generalized atrophy. There are no masses or hemorrhages. There are no extra-axial fluid collections. There is a small left frontal scalp hematoma. IMPRESSION: 1. Senescent changes of the brain. 2. Old right occipital infarct. 3. Small left frontal scalp hematoma. CT CERVICAL SPINE: Vertebral body height and alignment appear normal. There are diffuse degenerative changes of the discs throughout the cervical spine. There are also degenerative changes of the uncovertebral joints. There is joint space narrowing and hypertrophic changes. There are no fractures or prevertebral soft tissue swelling. IMPRESSION: 1. Diffuse degenerative changes of the cervical spine. No acute abnormality is seen. Dictated by: Dictated on workstation # [id number]
--- NOTE | 2022-04-06 21:04 | Diagnostic Imaging Report ---
INDICATION: Seizure EXAM: Portable chest at 8:45 PM FINDINGS: The heart size and pulmonary vascularity are normal. Lungs are clear. There are no effusions or pneumothoraces. IMPRESSION: Negative chest. Dictated by: Dictated on workstation # [id number]
[2022-04-06] MEDS ORDERED: LORazepam INJ 2 MG/ML (ATIVAN) VIAL IVP ONE ×3 (21:30→23:30)
--- NOTE | 2022-04-06 21:39 | Diagnostic Imaging Report ---
PROCEDURE: CT thoracic and lumbar spine without contrast. TECHNIQUE: Multiple contiguous axial images were obtained through the thoracic and lumbar spine without the use of intravenous contrast. Sagittal and coronal reformations were then performed. All CT scans use one or more of the following dose optimizing techniques: automated exposure control, MA and/or KvP adjustment based on a patient size and exam type, or iterative reconstruction. INDICATION: Back pain from falling. FINDINGS: The vertebral alignment is normal. There is mild diffuse spondylosis. There is a compression fracture at the superior endplate of T12. IMPRESSION: Compression fracture at the superior endplate of T12. Dictated by: Dictated on workstation # [id number]
[2022-04-06] MEDS ORDERED: IOHEXOL 350 MG/ML 100 ML (OMNIPAQUE 350) VIAL IV ONE (21:45)
[2022-04-06] MEDS ORDERED: CATHETER FLUSH 10 ML SYR IV PRN (21:45)
[2022-04-06] MEDS ORDERED: NS 100 ML (IVPB) BAG IV ONE (21:45)
--- NOTE | 2022-04-06 21:47 | Diagnostic Imaging Report ---
INDICATION: Hip pain FINDINGS: AP view pelvis shows no fracture or dislocation. Hip joints are unremarkable. IMPRESSION: Unremarkable pelvis. Dictated by: Dictated on workstation # [id number]
[2022-04-06 21:48] LABS: ACETAMINOPHEN < 10 UG/ML (10-30)
[2022-04-06 21:53] LABS: CREATINE KINASE MB 6.4 NG/ML (<6.6)
--- NOTE | 2022-04-06 22:01 | Diagnostic Imaging Report ---
EXAMINATION: CT chest, abdomen and pelvis with intravenous contrast. TECHNIQUE: Multiple contiguous axial images were obtained through the chest, abdomen and pelvis after the uneventful administration of intravenous contrast. All CT scans use one or more of the following dose optimizing techniques: automated exposure control, MA and/or KvP adjustment based on patient size and exam type or iterative reconstruction. HISTORY: Chest and abdominal pain after a fall COMPARISON: 12/23/2019 FINDINGS: Thyroid: The visualized thyroid gland is normal. Mediastinum: Heart size is normal without significant pericardial effusion. Calcifications of the aorta and coronary vessels. Thoracic aorta is normal in caliber. No suspicious lymphadenopathy. Lungs and airways: The lungs are clear without consolidation, pleural effusion, or pneumothorax. There is a calcified granuloma within the right upper lobe. The airways are normal. Solid organs: The liver is normal without focal lesion. The gallbladder is normal. There is no biliary ductal dilation. Pancreas is normal. Spleen is normal. Adrenal glands are normal. There are bilateral renal cysts which require no follow-up. No hydronephrosis. Bowel: The stomach and small bowel are normal without obstruction. Scattered colonic diverticulosis. The appendix is normal. Peritoneum: There is no intraperitoneal free fluid or free air. No suspicious lymphadenopathy. Vasculature: Calcification of the aorta without aneurysm. Musculoskeletal: There is a new compression fracture of the T12 vertebral body compared to 12/23/2019. There is prominence of the left gluteal musculature which could represent underlying hematoma. Pelvis: Fiducial markers are present within the prostate gland. The urinary bladder is normal. IMPRESSION: 1. Compression fracture of the T12 vertebral body. 2. No other acute abnormality within the chest, abdomen or pelvis. 3. Likely left gluteal muscle hematoma. 4. Colonic diverticulosis. Dictated by: Dictated on workstation # [id number]
[2022-04-06] MEDS ORDERED: LORazepam INJ 2 MG/ML (ATIVAN) VIAL ONE (23:17)
--- NOTE | 2022-04-06 23:30 | Tele-ICU Progress Note ---
Subjective Date Seen by a Provider: Apr 06, 2022 Time Seen by a Provider: 22:55 Subjective/Events-last exam This virtual visit was conducted using real time audio/video. Thank you for asking us to see this patient for respiratory insufficiency due to probable underlying COPD. Admitted with seizure (none previously), post ictal and confused. Daily vodka drinker, none in 2 days. Work up at [facility] 04/01-04/02 negative for acute neurological process. PMH: Daily EtOH, HTN, HL, on home O2 in past. SH: smoking history: former FH: Non-contributory ROS: limited by patient's clinical condition. PE: VSS. O2 sat 97% on NC 2 LPM. HEENT: No obvious masses, adenopathy or JVD. Chest: clear to auscultation. CV: RRR S1 S2 No murmur or added sounds. Abd: Non-tender. Bowel sounds Y. : Unremarkable. [place] Y. CHAINMAN/psychiatric: Grossly intact. No obvious focal findings. Extremities: No edema. Capillary refill < 3 seconds. Skin: unremarkable. Results: Elevated BG 190 CPK 625, Trop 0.038. Decreased Hb 123.5. ABG: not done. CXR: Hyperinflated, clear carranza. Available chart/ vitals / labs / images reviewed. Video assessment done using teleICU camera, rest of exam as per RN. A/P: Respiratory insufficiency: Continue present management with duonebs Monitor for increasing oxygenation needs and/or need for intubation. Critical Care: critically ill patient. Cont. IVF. Consider CIWA if mentation worsens Discussed with RN Jenny. Asked RN to reach out to eICU if any questions or concerns later. Time spent with patient/coordination of care with other health professionals (mins): 34 Sepsis Event Evaluation Height, Weight, BMI Height: 6'0.00" Weight: 188lbs. 0.0oz. 85.616894ml; 24.00 BMI Method:Stated Exam Exam Patient acknowledged, consented, and participated in this virtual visit which was conducted using real time audio/video Vital Signs Date Time Temp Pulse Resp B/P (MAP) Pulse Ox O2 Delivery O2 Flow Rate FiO2 04/06/22 20:05 Nasal Cannula 2.00 04/06/22 20:00 36.5 9 20 151/81 (104) 97 Nasal Cannula 2.00 Height & Weight Height: 6'0.00" Weight: 188lbs. 0.0oz. 85.415394gq; 24.00 BMI Method:Stated General Appearance: Chronically ill, Mild Distress Capillary Refill: Less Than 3 Seconds Peripheral Pulses: 1+ Dorsalis Pedis (R), 1+ Left Dors-Pedis (L) Results Lab Laboratory Tests 04/06/22 20:05 Assessment/Plan Assessment/Plan See free text. Critical Care: Critically Ill Patient MIGUEL A SRINIVASAN MD Apr 06, 2022 23:30
[2022-04-06] MEDS ORDERED: ACETAMINOPHEN 500 MG TAB (TYLENOL) PO PRN (23:45)
[2022-04-06] MEDS ORDERED: RT-ALBUTEROL/IPRATROPIUM 3 ML (DUONEB) VIAL INH PRN (23:45)
[2022-04-06] MEDS ORDERED: ONDANSETRON 4 MG/2 ML (SDV) Z0FRAN IV PRN (23:45)
[2022-04-07] MEDS ORDERED: D5 1/2 NS 1000 ML IV SOLUTION 1,000 ML IV PRN
[2022-04-07] MEDS ORDERED: LORazepam INJ 2 MG/ML (ATIVAN) VIAL IM/IV PRN
[2022-04-07] MEDS ORDERED: 1/2 NS IV SOLUTION 1,000 ML IV PRN
[2022-04-07] MEDS ORDERED: ANTACID SUSP 30 ML UDC (MYLANTA) PO PRN
[2022-04-07] MEDS ORDERED: SENNA W/DOCUSATE (SENOKOT S) TABLET PO PRN
[2022-04-07] MEDS ORDERED: ONDANSETRON 4 MG (ZOFRAN) ORAL DISSOLVE TAB SL PRN
[2022-04-07] MEDS: D5 1/2 NS W/KCL 20 MEQ/L 1,000 ML IV SCH ×4 (00:01→15:19)
[2022-04-07] MEDS: LORazepam INJ 2 MG/ML (ATIVAN) VIAL IV PRN ×7 (02:19→18:10)
[2022-04-07 03:10] LABS: BASOPHILS % (AUTO) 0 % (0-10); EOSINOPHILS # (AUTO) 0.1 10^3/uL (0.0-0.3); EOSINOPHILS % (AUTO) 1 % (0-10); HEMOGLOBIN 11.4 g/dL (13.3-17.7); LYMPHOCYTES % (AUTO) 15 % (12-44)
[2022-04-07 03:11] LABS: HEMATOCRIT 33 % (40-54); MEAN CORPUSCULAR HEMOGLOBIN 31 pg (25-34); MEAN CORPUSCULAR HGB CONC 35 g/dL (32-36); MEAN CORPUSCULAR VOLUME 90 fL (80-99); MEAN PLATELET VOLUME 10.7 fL (9.0-12.2); MONOCYTES # (AUTO) 0.6 10^3/uL (0.0-1.0); MONOCYTES % (AUTO) 9 % (0-12); NEUTROPHILS # (AUTO) 5.2 10^3/uL (1.8-7.8); NEUTROPHILS % (AUTO) 75 % (42-75); PLATELET COUNT 132 10^3/uL (130-400)
[2022-04-07 03:38] LABS: ALBUMIN 3.3 GM/DL (3.2-4.5); CHLORIDE 102 MMOL/L (98-107); POTASSIUM 3.7 MMOL/L (3.6-5.0); SODIUM 138 MMOL/L (135-145)
[2022-04-07 03:39] LABS: CALCIUM 8.4 MG/DL (8.5-10.1)
[2022-04-07 03:41] LABS: GLUCOSE 177 MG/DL (70-105); TOTAL PROTEIN 5.3 GM/DL (6.4-8.2)
[2022-04-07 03:42] LABS: BILIRUBIN,TOTAL 1.1 MG/DL (0.1-1.0); CARBON DIOXIDE 25 MMOL/L (21-32)
[2022-04-07 03:44] LABS: ALKALINE PHOSPHATASE 72 U/L (40-136); CREATININE SERUM 0.68 MG/DL (0.60-1.30); GFR ESTIMATED 99; PHOSPHORUS 3.2 MG/DL (2.3-4.7)
[2022-04-07 03:45] LABS: BUN/CREATININE RATIO 7
[2022-04-07 03:47] LABS: ALANINE AMINOTRANSFERASE 21 U/L (0-55); MAGNESIUM 1.8 MG/DL (1.6-2.4)
[2022-04-07 03:48] LABS: CREATINE KINASE 509 U/L (30-200)
[2022-04-07 03:55] LABS: CREATINE KINASE MB 5.8 NG/ML (<6.6)
[2022-04-07] MEDS: THIAMINE INJECTION 100 MG, FOLIC ACID INJECTION 1 MG, MAGNESIUM SULFATE 2 GM, VITAMIN M... IV SCH ×5 (07:39)
--- NOTE | 2022-04-07 08:21 | History & Physical ---
History of Present Illness History of Present Illness Reason for visit/HPI PT IS A 71 Y/O MALE WHO IS KNOWN TO ME FROM CLINIC. HE HAS AN EXTENSIVE HISTORY OF ALCOHOLISM. PER ER REPORT AND HIS SISTER, HE HAD "FALLEN" MULTIPLE TIMES OVER THE PAST WEEK, AND HAD WHAT IS SUSPECTED TO BE DT SEIZURE FROM ALCOHOL WITHDRAWAL. Date of Admission Apr 06, 2022 at 21:20 Date Seen by a Provider: Apr 07, 2022 Time Seen by a Provider: 08:05 I consulted on this patient on 04/07/22 08:16 Attending Physician Karli Lopez MD Admitting Physician Admitting Physician: Karli Lopez MD Attending Physician: Karli Lopez MD Consult Allergies and Home Medications Allergies Coded Allergies: No Known Drug Allergies (Unverified , 11/23/14) Patient Home Medication List Home Medication List Reviewed: Yes Atorvastatin Calcium (Lipitor) 80 Mg Tablet, 80 MG PO DAILY, (Reported) Entered as Reported by: MARGARITA SOUZA on 10/31/18 1103 Last Action: Held Fexofenadine HCl (Fexofenadine HCl) 180 Mg Tablet, 180 MG PO DAILY PRN for ALLERGIES, (Reported) Entered as Reported by: GINNA PARDO on 04/07/22 153 Last Action: Held Folic Acid (Folic Acid) 1 Mg Tablet, 1 MG PO DAILY, (Reported) Entered as Reported by: GINNA PARDO on 04/07/22 1529 Last Action: Continued Propranolol HCl (Propranolol HCl) 10 Mg Tablet, 10 MG PO BID, (Reported) Entered as Reported by: MARGARITA SOUZA on 10/31/18 110 Last Action: Held Thiamine HCl (B-1) 100 Mg Tablet, 100 MG PO DAILY, (Reported) Entered as Reported by: GINNA PARDO on 04/07/22 153 Last Action: Continued Discontinued Medications Ginkgo Biloba (Ginkgo) 60 Mg Tablet, 60 MG PO DAILY, (Reported) Discontinued Reason: No Longer Taking Entered as Reported by: DHARA MADRID on 03/25/22 1232 Last Action: Discontinued Tramadol HCl (Tramadol HCl) 50 Mg Tablet, 50 MG PO TID, (Reported) Entered as Reported by: DHARA MADRID on 03/25/22 1232 Last Action: Discontinued [Nugenix] , 1 EACH PO DAILY, (Reported) Entered as Reported by: GINNA PARDO on 04/07/221531 Last Action: Discontinued [Prevagen] TAB, 1 EACH PO DAILY, (Reported) Entered as Reported by: GINNA PARDO on 04/07/221530 Last Action: Discontinued Past Bytkwsl-Odnimy-Dfcyer Hx Patient Social History Marrital Status: Living Status: LIVES IN HOME ALONE IN [place] 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) Tobacco Use?: Yes Smoking Status: Former Smoker Smokeless Tobacco Frequency: Never a User Use of E-Cig and/or Vaping dev: No Substance use?: Yes Substance frequency: Daily Alcohol Use?: Yes Alcohol type: Hard Liquor Alcohol Frequency: Daily Pt feels they are or have been: No Immunizations Up To Date First/Initial COVID19 Vaccinat: 2020 Second COVID19 Vaccination Ander: 2020 Tetanus Booster (TDap): Unknown PED Vaccines UTD: Yes Seasonal Allergies Seasonal Allergies: No Current Status Primary Language: Albanian Preferred Spoken Language: Albanian Implanted or Applied Medical D: None Past Medical History Surgeries: Abdominal, Orthopedic Pneumonia Currently Using CPAP: No Currently Using BIPAP: No High Cholesterol, Hypertension Dementia (ALCOHOLIC DEMENTIA), TIA Sexually Transmitted Disease: No HIV/AIDS: No Benign Prostatic Hyperpl Arthritis Loss of Vision: Left Hearing Impairment: Denies Prostate Blood Disorders: No Adverse Reaction/Blood Tranf: No Family Medical History Reviewed and Corrections made (FATHER IN HIS MID 90'S) Hypertension 19 FATHER Hypertension Review of Systems ROS-Unable to Obtain: UNABLE TO OBTAIN FROM PT DUE TO PT BEING OBTUNDED ROS PER SISTER AT BEDSIDE Constitutional: No fever EENTM: hearing loss (CHRONIC MILD), blurred vision, double vision Respiratory: no symptoms reported Cardiovascular: no symptoms reported Gastrointestinal: No diarrhea, No loss of appetite, No vomiting Genitourinary: no symptoms reported Musculoskeletal: back pain Skin: other (BRUISING OF LEFT ARM AND HIP - SISTER REPORTS FALLING AT HOME) Psychiatric/Neurological: Other (PT CONFUSED, COMBATIVE, CURRENTLY OBTUNDED) Physical Exam Vital Signs Vital Signs - First Documented 04/06/22 20:00 Temp 36.5 Pulse 9 Resp 20 B/P (MAP) 151/81 (104) Pulse Ox 97 O2 Delivery Nasal Cannula O2 Flow Rate 2.00 Capillary Refill : Less Than 3 Seconds Height, Weight, BMI Height: 6'0.00" Weight: 188lbs. 0.0oz. 85.560359ak; 29.51 BMI Method:Stated General Appearance: No Apparent Distress, Other (PT OBTUNDED, MUMBLED RESPONSES) HEENT: Other (PUPILS EQUAL, REACTIVE TO LIGHT) Respiratory: Chest Non Tender, Lungs Clear, Normal Breath Sounds, No Accessory Muscle Use, No Respiratory Distress Cardiovascular: Regular Rate, Rhythm Gastrointestinal: Normal Bowel Sounds, Non Tender, Soft Rectal: Deferred Extremity: No Calf Tenderness, No Pedal Edema, Other (EXTENSIVE BRUISING ALONG LEFT LATERAL HIP) Neurologic/Psychiatric: Other (PT OBTUNDED) Skin: Warm/Dry, Ecchymosis (LEFT HIP, LEFT ARM, ABRASIONS ON LEFT ARM) Assessment/Plan Assessment and Plan DELIRIUM TREMENS SEIZURE ACUTE ALCOHOL WITHDRAWAL CHRONIC ALCOHOLISM T12 COMPRESSION FRACTURE DOUBLE VISION ALCOHOLIC DEMENTIA RHABDOMYOLISIS HYPERBILIRUBINEMIA HYPERGLYCEMIA DELIRIUM TREMENS SEIZURE DUE TO ACUTE ALCOHOL WITHDRAWAL WITH CHRONIC ALCOHOLISM - PT ON CIWA PROTOCOL - CONTINUE WITH ICU CARE, MONITOR CLOSELY AND TREAT SYMPTOMS WITH PRN DOSING OF ATIVAN - DISCUSSION WITH SISTER, ABOUT SERIOUSNESS OF THE SITUATION, SHE UNDERSTANDS, AND IS INTERESTED IN FURTHER CARE FOR HER BROTHER AT [facility] CARE HOME. T12 COMPRESSION FRACTURE - CONTROL PAIN WITH ORAL MEDS WHEN PT MORE ALERT AND CAN SAFELY TAKE MEDS BY MOUTH. DOUBLE VISION - WORK UP OUTPATIENT PARTIALLY COMPLETED. ALCOHOLIC DEMENTIA - SUPPORTIVE CARE - START THIAMINE AND FOLATE RHABDOMYOLISIS - SHOULD CLEAR WITH FLUIDS - MONITOR LABS HYPERBILIRUBINEMIA - SHOULD IMPROVE PT IS HYDRATED AND LIVER RECOVERS FROM SHOCK AND DETOX HYPERGLYCEMIA - MONITOR LABS DVT PROPHYLAXIS WITH SCD'S GI PROPHYLAXIS WITH PPI Admission Diagnosis DELIRIUM TREMENS SEIZURE ACUTE ALCOHOL WITHDRAWAL CHRONIC ALCOHOLISM T12 COMPRESSION FRACTURE DOUBLE VISION ALCOHOLIC DEMENTIA RHABDOMYOLISIS HYPERBILIRUBINEMIA HYPERGLYCEMIA Admission Status: Inpatient Order (span 2 midnights) Reason for Inpatient Admission: INPT ADMISSION FOR SEIZURES FROM WITHDRAWAL FROM ALCOHOL WILL REQUIRE AT LEAST 3 MIDNIGHTS KARLI LOPEZ MD Apr 07, 2022 08:21
--- NOTE | 2022-04-07 11:18 | Tele-ICU Progress Note ---
Subjective Date Seen by a Provider: Apr 07, 2022 Time Seen by a Provider: 11:17 Subjective/Events-last exam (Tele-ICU Physician , Progress Note ) Available chart/ vitals / labs / Images reviewed Video assessment done using teleICU camera, rest of exam as per RN Discussed with RN , EXAM PER RN Events overnight : Afebrile FiO2 - I/O = Drips: Pressors: , hemodynamically stable Consultants: Hospital course: (04/06) 71yM Admit Alcohol withdrawl SZ, New T12 compression fx A/P ETOH withdrawal -CIWA - vitamins - monitor for seizures - non observed inpatient s/p fall, left gluteal muscle hematoma and T 12 compression - monitor Hypoxia - 3 l O2 - IS Lines : periph (Central Line Necessity Reviewed) Waddell: + OG: Nutrition: po Analgesia: Anxiety/ delirium VTE Prophylaxis: scd , if hematoma stable , will start on locenox Stress Ulcer Prophylaxis: na Plans in collaboration with bedside consultants and IM MDs. Discussed with RN to reach out if any questions or concerns A total of 31 minutes of critical care time was devoted to this patient today, required to treat and/or prevent further deterioration of critical care condition ( as above) . Sepsis Event Evaluation Height, Weight, BMI Height: 6'0.00" Weight: 188lbs. 0.0oz. 85.104710mo; 29.51 BMI Method:Stated Exam Exam Patient acknowledged, consented, and participated in this virtual visit which was conducted using real time audio/video Vital Signs Date Time Temp Pulse Resp B/P (MAP) Pulse Ox O2 Delivery O2 Flow Rate FiO2 04/07/22 10:00 77 26 151/73 98 Nasal Cannula 2.00 04/07/22 09:00 73 12 150/83 98 Nasal Cannula 2.00 04/07/22 08:00 Nasal Cannula 2.00 04/07/22 08:00 36.4 04/07/22 08:00 68 15 128/68 98 Nasal Cannula 2.00 04/07/22 07:14 97 Nasal Cannula 2.00 04/07/22 07:00 85 18 117/65 98 Nasal Cannula 2.00 04/07/22 07:00 85 04/07/22 06:00 64 23 150/86 100 Nasal Cannula 2.00 04/07/22 05:00 65 19 124/66 100 Nasal Cannula 2.00 04/07/22 04:00 Nasal Cannula 2.00 04/07/22 04:00 61 19 141/69 100 Nasal Cannula 2.00 04/07/22 03:54 36.2 04/07/22 03:00 66 21 141/70 99 Nasal Cannula 2.00 04/07/22 02:00 63 21 128/66 100 Nasal Cannula 2.00 04/07/22 01:18 Nasal Cannula 2.00 04/07/22 01:00 66 04/07/22 01:00 66 21 112/72 100 Nasal Cannula 2.00 04/07/22 00:45 69 21 114/74 100 Nasal Cannula 2.00 04/07/22 00:30 68 18 127/72 99 Nasal Cannula 2.00 04/07/22 00:15 69 21 126/89 99 Nasal Cannula 2.00 04/07/22 00:00 75 22 137/75 90 Nasal Cannula 2.00 04/06/22 23:47 77 04/06/22 23:46 36.1 88 27 145/97 97 Nasal Cannula 2.00 04/06/22 20:05 Nasal Cannula 2.00 04/06/22 20:00 36.5 9 20 151/81 (104) 97 Nasal Cannula 2.00 I & O 04/07/22 07:00 Intake Total 1000 ml Output Total 1050 ml Balance -50 ml Height & Weight Height: 6'0.00" Weight: 188lbs. 0.0oz. 85.889625hq; 29.51 BMI Method:Stated General Appearance: Chronically ill, Mild Distress Capillary Refill: Less Than 3 Seconds Peripheral Pulses: 1+ Dorsalis Pedis (R), 1+ Left Dors-Pedis (L) Results Lab Laboratory Tests 04/06/22 20:05 04/07/22 03:05 Assessment/Plan Assessment/Plan ` TAMEKA GALLAGHER MD Apr 07, 2022 11:18
[2022-04-07] MEDS ORDERED: FOLI1TAB33 PO (15:29)
[2022-04-07] MEDS ORDERED: THIA100T66 PO (15:30)
[2022-04-07] MEDS ORDERED: NF-ALLE180 PO (15:30)
[2022-04-07] MEDS ORDERED: PREVAGEN PO (15:31)
[2022-04-07] MEDS ORDERED: NUGENIX PO (15:32)
[2022-04-07] MEDS ORDERED: DexMEDEtomidine 250 ML DRIP 250 ML IV ONE (18:44)
[2022-04-07] MEDS: DexMEDEtomidine 250 ML DRIP 250 ML IV SCH (19:02)
[2022-04-08] MEDS: D5 1/2 NS W/KCL 20 MEQ/L 1,000 ML IV SCH ×4 (01:00→16:10)
[2022-04-08] MEDS: DexMEDEtomidine 250 ML DRIP 250 ML IV SCH (01:00)
[2022-04-08 05:02] LABS: BASOPHILS % (AUTO) 0 % (0-10); EOSINOPHILS # (AUTO) 0.2 10^3/uL (0.0-0.3); EOSINOPHILS % (AUTO) 5 % (0-10); HEMATOCRIT 33 % (40-54); HEMOGLOBIN 11.2 g/dL (13.3-17.7); LYMPHOCYTES # (AUTO) 0.9 10^3/uL (1.0-4.0); LYMPHOCYTES % (AUTO) 18 % (12-44); MEAN CORPUSCULAR HEMOGLOBIN 31 pg (25-34); MEAN CORPUSCULAR HGB CONC 34 g/dL (32-36); MEAN CORPUSCULAR VOLUME 91 fL (80-99); MONOCYTES # (AUTO) 0.4 10^3/uL (0.0-1.0); MONOCYTES % (AUTO) 8 % (0-12); NEUTROPHILS # (AUTO) 3.6 10^3/uL (1.8-7.8); NEUTROPHILS % (AUTO) 68 % (42-75); PLATELET COUNT 131 10^3/uL (130-400); WHITE BLOOD COUNT 5.2 10^3/uL (4.3-11.0)
[2022-04-08 05:22] LABS: CALCIUM 8.1 MG/DL (8.5-10.1)
[2022-04-08 05:24] LABS: TOTAL PROTEIN 5.2 GM/DL (6.4-8.2)
[2022-04-08 05:25] LABS: BILIRUBIN,TOTAL 0.9 MG/DL (0.1-1.0)
[2022-04-08 05:27] LABS: CREATININE SERUM 0.7 MG/DL (0.60-1.30); PHOSPHORUS 3.5 MG/DL (2.3-4.7)
[2022-04-08 05:30] LABS: MAGNESIUM 2.2 MG/DL (1.6-2.4)
--- NOTE | 2022-04-08 08:20 | Progress Note ---
Subjective Subjective Date Seen by Provider: Apr 08, 2022 Time Seen by Provider: 08:00 PT OBTUNDED AGAIN THIS MORNING - PER STAFF, HE WAS QUITE COMBATIVE OVERNIGHT, HAD TO BE ON PRECEDEX. HE WAS CALM DURING THE DAY YESTERDAY PER STAFF REPORT. HE IS UNABLE TO COMMUNICATE WITH ME INTELLIGIBLY TODAY. SISTER STATES THAT HE WAS INTERACTIVE WITH HER IN AN APPROPRIATE MANNER YESTERDAY Review of Systems General: No Chills; Fatigue Pulmonary: No Dyspnea, No Cough Genitourinary: Other (DILLON IN PLACE) Neurological: Other (OBTUNDED); No: Seizures Objective Exam Vital Signs Vital Signs Date Time Temp Pulse Resp B/P (MAP) Pulse Ox O2 Delivery O2 Flow Rate FiO2 04/08/22 07:51 36.2 04/08/22 07:32 Nasal Cannula 2.00 04/08/22 07:00 51 29 112/68 96 Nasal Cannula 2.00 04/08/22 07:00 52 04/08/22 06:00 49 26 123/67 97 Nasal Cannula 2.00 04/08/22 05:00 49 26 123/67 97 Nasal Cannula 2.00 04/08/22 04:00 Nasal Cannula 2.00 04/08/22 04:00 49 26 121/63 98 Nasal Cannula 2.00 04/08/22 03:54 36.2 04/08/22 03:00 49 28 113/57 98 Nasal Cannula 2.00 04/08/22 02:00 49 28 112/56 98 Nasal Cannula 2.00 04/08/22 01:00 51 04/08/22 01:00 51 26 113/56 98 Nasal Cannula 2.00 04/08/22 01:00 52 119/58 04/08/22 00:05 36.8 04/08/22 00:00 52 27 119/58 98 Nasal Cannula 2.00 04/07/22 23:23 Nasal Cannula 2.00 04/07/22 23:00 53 26 118/61 98 Nasal Cannula 2.00 04/07/22 22:00 54 23 119/59 98 Nasal Cannula 2.00 04/07/22 21:00 56 24 115/59 97 Nasal Cannula 2.00 04/07/22 20:05 36.7 04/07/22 20:00 Nasal Cannula 2.00 04/07/22 20:00 65 26 106/60 97 Nasal Cannula 2.00 04/07/22 19:02 87 132/95 04/07/22 19:00 87 04/07/22 19:00 87 33 131/78 97 Nasal Cannula 2.00 04/07/22 18:00 87 33 132/95 98 Nasal Cannula 2.00 04/07/22 17:00 80 24 133/71 98 Nasal Cannula 2.00 04/07/22 16:23 Nasal Cannula 2.00 04/07/22 16:04 36.8 04/07/22 16:00 90 29 152/80 98 Nasal Cannula 2.00 04/07/22 15:00 84 29 155/85 97 Nasal Cannula 2.00 04/07/22 14:00 79 21 150/87 94 Nasal Cannula 2.00 04/07/22 13:00 65 04/07/22 13:00 74 23 136/73 98 Nasal Cannula 2.00 04/07/22 12:00 Nasal Cannula 2.00 04/07/22 12:00 97 25 104/61 94 Nasal Cannula 2.00 04/07/22 11:00 76 21 130/67 99 Nasal Cannula 2.00 04/07/22 10:00 77 26 151/73 98 Nasal Cannula 2.00 04/07/22 09:00 73 12 150/83 98 Nasal Cannula 2.00 I & O 04/08/22 07:00 Intake Total 1025 ml Output Total 2325 ml Balance -1300 ml General Appearance: Other (OBTUNDED) Eyes: Bilateral Eye PERRL Respiratory: Chest Non Tender, Lungs Clear, Normal Breath Sounds, No Accessory Muscle Use, No Respiratory Distress Cardiovascular: Regular Rate, Rhythm Gastrointestinal: Normal Bowel Sounds, Non Tender, Soft Rectal: Deferred Neurologic/Psychiatric: Other (OBTUNDED) Skin: Warm/Dry, Ecchymosis (LEFT LATERAL HIP) Results Lab Laboratory Tests 04/08/22 04:50: White Blood Count 5.2, Red Blood Count 3.61L, Hemoglobin 11.2L, Hematocrit 33L, Mean Corpuscular Volume 91, Mean Corpuscular Hemoglobin 31, Mean Corpuscular Hemoglobin Concent 34, Red Cell Distribution Width 13.6, Platelet Count 131, Mean Platelet Volume 10.0, Immature Granulocyte % (Auto) 0, Neutrophils (%) (Auto) 68, Lymphocytes (%) (Auto) 18, Monocytes (%) (Auto) 8, Eosinophils (%) (Auto) 5, Basophils (%) (Auto) 0, Neutrophils # (Auto) 3.6, Lymphocytes # (Auto) 0.9L, Monocytes # (Auto) 0.4, Eosinophils # (Auto) 0.2, Basophils # (Auto) 0.0, Immature Granulocyte # (Auto) 0.0, Sodium Level 140, Potassium Level 4.0, Chloride Level 107, Carbon Dioxide Level 23, Anion Gap 10, Blood Urea Nitrogen 3L, Creatinine 0.70, Estimat Glomerular Filtration Rate 99, BUN/Creatinine Ratio 4, Glucose Level 203H, Calcium Level 8.1L, Corrected Calcium 8.9, Phosphorus Level 3.5, Magnesium Level 2.2, Total Bilirubin 0.9, Aspartate Amino Transf (AST/SGOT) 19, Alanine Aminotransferase (ALT/SGPT) 18, Alkaline Phosphatase 70, Total Protein 5.2L, Albumin 3.0L Microbiology 04/06/22 MRSA Screen - Final, Complete MRSA not isolated Assessment/Plan Assessment/Plan Admission Dx DELIRIUM TREMENS SEIZURE ACUTE ALCOHOL WITHDRAWAL CHRONIC ALCOHOLISM T12 COMPRESSION FRACTURE DOUBLE VISION ALCOHOLIC DEMENTIA RHABDOMYOLISIS HYPERBILIRUBINEMIA HYPERGLYCEMIA Assessment and Plan DELIRIUM TREMENS SEIZURE ACUTE ALCOHOL WITHDRAWAL CHRONIC ALCOHOLISM T12 COMPRESSION FRACTURE DOUBLE VISION ALCOHOLIC DEMENTIA RHABDOMYOLISIS HYPERBILIRUBINEMIA HYPERGLYCEMIA DELIRIUM TREMENS SEIZURE DUE TO ACUTE ALCOHOL WITHDRAWAL WITH CHRONIC ALCOHOLISM - PT ON CIWA PROTOCOL - - WILL MOVE PT DOWN TO FLOOR IF HE CLEARS MORE - HE WAS ON PRECEDEX LAST NIGHT DUE TO COMBATIVE BEHAVIORS, BUT WAS "GOOD" ALL DAY FOR HIS SISTER. - DISCUSSION WITH SISTER, ABOUT SERIOUSNESS OF THE SITUATION, SHE UNDERSTANDS, AND IS INTERESTED IN FURTHER CARE FOR HER BROTHER AT A LONG TERM - SHE DOES NOT BELIEVE SHE WILL BE ABLE TO CARE FOR HIM IN HIS HOME OR HER HOME. T12 COMPRESSION FRACTURE - CONTROL PAIN WITH ORAL MEDS WHEN PT MORE ALERT AND CAN SAFELY TAKE MEDS BY MOUTH. DOUBLE VISION - WORK UP OUTPATIENT PARTIALLY COMPLETED. ALCOHOLIC DEMENTIA - SUPPORTIVE CARE - START THIAMINE AND FOLATE RHABDOMYOLISIS IMPROVED WITH FLUIDS HYPERBILIRUBINEMIA - IMPROVING PT IS HYDRATED AND LIVER RECOVERS FROM SHOCK AND DETOX HYPERGLYCEMIA - MONITOR LABS DVT PROPHYLAXIS WITH SCD'S GI PROPHYLAXIS WITH PPI KARLI ANTUNEZ MD Apr 08, 2022 08:20
--- NOTE | 2022-04-08 09:38 | Tele-ICU Progress Note ---
Subjective Date Seen by a Provider: Apr 08, 2022 Time Seen by a Provider: 09:10 Subjective/Events-last exam This virtual visit was conducted using real time audio/video. Thank you for asking us to see this patient for respiratory insufficiency due to probable underlying COPD. 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 Work up at [facility] 04/01-04/02 negative for acute neurological process. PMH: Daily EtOH, HTN, HL, on home O2 in past.. PE: VSS. O2 sat 97% on NC 2 LPM. HEENT: No obvious masses, adenopathy or JVD. Chest: clear to auscultation. CV: RRR S1 S2 No murmur or added sounds. Abd: Non-tender. Bowel sounds Y. : Unremarkable. 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 No obvious focal findings. Extremities: No edema. Capillary refill < 3 seconds. Skin: unremarkable. Results: Elevated BG 203 CPK 509,. Decreased Hb 11.2. ABG: not done. CXR: Hyperinflated, clear carranza. Available chart/ vitals / labs / images reviewed. Video assessment done using teleICU camera, rest of exam as per RN. A/P: Respiratory insufficiency: Continue present management with duonebs, O2. Monitor for increasing oxygenation needs and/or need for intubation. Critical Care: critically ill patient. Cont. IVF, CIWA Discussed with GABINO Lim. Asked RN to reach out to eICU if any questions or concerns later. Time spent with patient/coordination of care with other health professionals (mins): 23 Sepsis Event Evaluation Height, Weight, BMI Height: 6'0.00" Weight: 188lbs. 0.0oz. 85.581385yq; 29.51 BMI Method:Stated Exam Exam Patient acknowledged, consented, and participated in this virtual visit which was conducted using real time audio/video Vital Signs Date Time Temp Pulse Resp B/P (MAP) Pulse Ox O2 Delivery O2 Flow Rate FiO2 04/08/22 09:00 49 25 114/60 96 Nasal Cannula 2.00 04/08/22 08:00 49 25 112/64 96 Nasal Cannula 2.00 04/08/22 07:51 36.2 04/08/22 07:32 Nasal Cannula 2.00 04/08/22 07:00 51 29 112/68 96 Nasal Cannula 2.00 04/08/22 07:00 52 04/08/22 06:00 49 26 123/67 97 Nasal Cannula 2.00 04/08/22 05:00 49 26 123/67 97 Nasal Cannula 2.00 04/08/22 04:00 Nasal Cannula 2.00 04/08/22 04:00 49 26 121/63 98 Nasal Cannula 2.00 04/08/22 03:54 36.2 04/08/22 03:00 49 28 113/57 98 Nasal Cannula 2.00 04/08/22 02:00 49 28 112/56 98 Nasal Cannula 2.00 04/08/22 01:00 51 04/08/22 01:00 51 26 113/56 98 Nasal Cannula 2.00 04/08/22 01:00 52 119/58 04/08/22 00:05 36.8 04/08/22 00:00 52 27 119/58 98 Nasal Cannula 2.00 04/07/22 23:23 Nasal Cannula 2.00 04/07/22 23:00 53 26 118/61 98 Nasal Cannula 2.00 04/07/22 22:00 54 23 119/59 98 Nasal Cannula 2.00 04/07/22 21:00 56 24 115/59 97 Nasal Cannula 2.00 04/07/22 20:05 36.7 04/07/22 20:00 Nasal Cannula 2.00 04/07/22 20:00 65 26 106/60 97 Nasal Cannula 2.00 04/07/22 19:02 87 132/95 04/07/22 19:00 87 04/07/22 19:00 87 33 131/78 97 Nasal Cannula 2.00 04/07/22 18:00 87 33 132/95 98 Nasal Cannula 2.00 04/07/22 17:00 80 24 133/71 98 Nasal Cannula 2.00 04/07/22 16:23 Nasal Cannula 2.00 04/07/22 16:04 36.8 04/07/22 16:00 90 29 152/80 98 Nasal Cannula 2.00 04/07/22 15:00 84 29 155/85 97 Nasal Cannula 2.00 04/07/22 14:00 79 21 150/87 94 Nasal Cannula 2.00 04/07/22 13:00 65 04/07/22 13:00 74 23 136/73 98 Nasal Cannula 2.00 04/07/22 12:00 Nasal Cannula 2.00 04/07/22 12:00 97 25 104/61 94 Nasal Cannula 2.00 04/07/22 11:00 76 21 130/67 99 Nasal Cannula 2.00 04/07/22 10:00 77 26 151/73 98 Nasal Cannula 2.00 I & O 04/08/22 07:00 Intake Total 1025 ml Output Total 2325 ml Balance -1300 ml Height & Weight Height: 6'0.00" Weight: 188lbs. 0.0oz. 85.488026rc; 29.51 BMI Method:Stated General Appearance: Chronically ill, Mild Distress Capillary Refill: Less Than 3 Seconds Peripheral Pulses: 1+ Dorsalis Pedis (R), 1+ Left Dors-Pedis (L) Results Lab Laboratory Tests 04/06/22 20:05 04/07/22 03:05 04/08/22 04:50 Assessment/Plan Assessment/Plan See free text. Critical Care: Critically Ill Patient MIGUEL A SRINIVASAN MD Apr 08, 2022 09:38
[2022-04-08] MEDS: THIAMINE INJECTION 100 MG, FOLIC ACID INJECTION 1 MG, MAGNESIUM SULFATE 2 GM, VITAMIN M... IV SCH ×5 (10:09)
[2022-04-08] MEDS: LORazepam 1 MG (ATIVAN) TAB PO PRN (14:37)
[2022-04-08] MEDS: LORazepam INJ 2 MG/ML (ATIVAN) VIAL IV PRN ×3 (16:04→18:38)
[2022-04-08] MEDS ORDERED: DexMEDEtomidine 250 ML DRIP 250 ML IV ONE (18:56)
[2022-04-08] MEDS ORDERED: DexMEDEtomidine 250 ML DRIP 250 ML IV SCH (19:00)
[2022-04-09] MEDS: D5 1/2 NS W/KCL 20 MEQ/L 1,000 ML IV SCH ×4 (02:19→18:57)
[2022-04-09 05:19] LABS: HEMOGLOBIN 11.7 g/dL (13.3-17.7)
[2022-04-09 05:21] LABS: BASOPHILS % (AUTO) 0 % (0-10); EOSINOPHILS # (AUTO) 0.3 10^3/uL (0.0-0.3); EOSINOPHILS % (AUTO) 4 % (0-10); HEMATOCRIT 34 % (40-54); LYMPHOCYTES # (AUTO) 1.3 10^3/uL (1.0-4.0); LYMPHOCYTES % (AUTO) 22 % (12-44); MEAN CORPUSCULAR HEMOGLOBIN 32 pg (25-34); MEAN CORPUSCULAR HGB CONC 35 g/dL (32-36); MEAN CORPUSCULAR VOLUME 91 fL (80-99); MEAN PLATELET VOLUME 10.3 fL (9.0-12.2); MONOCYTES # (AUTO) 0.5 10^3/uL (0.0-1.0); MONOCYTES % (AUTO) 9 % (0-12); NEUTROPHILS # (AUTO) 3.6 10^3/uL (1.8-7.8); NEUTROPHILS % (AUTO) 64 % (42-75); PLATELET COUNT 139 10^3/uL (130-400); WHITE BLOOD COUNT 5.6 10^3/uL (4.3-11.0)
[2022-04-09 05:28] LABS: POTASSIUM 4.3 MMOL/L (3.6-5.0)
[2022-04-09 05:29] LABS: CALCIUM 8.3 MG/DL (8.5-10.1)
[2022-04-09 05:30] LABS: TOTAL PROTEIN 5.3 GM/DL (6.4-8.2)
[2022-04-09 05:34] LABS: CREATININE SERUM 0.7 MG/DL (0.60-1.30); PHOSPHORUS 3.6 MG/DL (2.3-4.7)
[2022-04-09 05:37] LABS: MAGNESIUM 2.2 MG/DL (1.6-2.4)
--- NOTE | 2022-04-09 08:33 | Progress Note ---
Subjective Subjective Date Seen by Provider: Apr 09, 2022 Time Seen by Provider: 08:30 Pt is a little more alert today - his sister reports that he is better, has some confusion, but is more conversant. He reports that he knows he is confused at times, but also knows - at this moment - that he is in the hospital He complains of dry mouth staff reports that earlier t his morning he was claiming it was 1991 and perez was president Review of Systems General: No Chills; Fatigue Pulmonary: No Dyspnea, No Cough Cardiovascular: No: Chest Pain, Palpitations, Orthopnea, Lt Headedness Gastrointestinal: No: Nausea, Vomiting, Abdominal Pain Genitourinary: Other (DILLON IN PLACE) Neurological: Weakness, Other (still has blurred vision); No: Seizures Objective Exam Vital Signs Vital Signs Date Time Temp Pulse Resp B/P (MAP) Pulse Ox O2 Delivery O2 Flow Rate FiO2 04/09/22 07:59 36.0 04/09/22 07:00 66 04/09/22 07:00 62 11 155/81 95 Nasal Cannula 2.00 04/09/22 06:00 51 23 125/68 95 Nasal Cannula 2.00 04/09/22 05:00 50 24 115/64 95 Nasal Cannula 2.00 04/09/22 04:00 49 22 116/65 96 Nasal Cannula 2.00 04/09/22 04:00 Nasal Cannula 2.00 04/09/22 04:00 36.1 04/09/22 03:00 50 25 108/62 96 Nasal Cannula 2.00 04/09/22 02:00 50 24 99/60 96 Nasal Cannula 2.00 04/09/22 01:00 53 27 114/63 96 Nasal Cannula 2.00 04/09/22 01:00 53 04/09/22 00:00 53 26 103/61 95 Nasal Cannula 2.00 04/08/22 23:59 Nasal Cannula 2.00 04/08/22 23:52 36.4 04/08/22 23:00 56 29 113/62 95 Nasal Cannula 2.00 04/08/22 22:00 57 27 106/62 94 Nasal Cannula 2.00 04/08/22 21:00 60 24 106/61 94 Nasal Cannula 2.00 04/08/22 20:00 Nasal Cannula 2.00 6/8/22 20:00 78 27 110/63 91 Nasal Cannula 2.00 04/08/22 19:20 37.3 04/08/22 19:07 79 128/72 04/08/22 19:02 89 171/79 04/08/22 19:00 87 21 130/74 96 Nasal Cannula 2.00 04/08/22 19:00 90 04/08/22 16:00 89 11 171/79 94 Nasal Cannula 2.00 04/08/22 15:17 Nasal Cannula 2.00 04/08/22 15:00 77 27 158/90 94 Nasal Cannula 2.00 04/08/22 14:00 72 16 157/88 98 Nasal Cannula 2.00 04/08/22 13:00 69 142/70 98 Nasal Cannula 2.00 04/08/22 13:00 70 04/08/22 12:00 70 15 138/75 98 Nasal Cannula 2.00 04/08/22 12:00 Nasal Cannula 2.00 04/08/22 12:00 36.1 04/08/22 11:00 53 23 132/70 99 Nasal Cannula 2.00 04/08/22 10:00 49 22 127/63 98 Nasal Cannula 2.00 04/08/22 09:00 49 25 114/60 96 Nasal Cannula 2.00 I & O 04/09/22 07:00 Intake Total 2030 ml Output Total 3250 ml Balance -1220 ml General Appearance: No Apparent Distress, WD/WN Eyes: Bilateral Eye PERRL HEENT: PERRL/EOMI, Other (PUPILS EQUAL, REACTIVE TO LIGHT) Respiratory: Chest Non Tender, Lungs Clear, Normal Breath Sounds, No Accessory Muscle Use, No Respiratory Distress Cardiovascular: Regular Rate, Rhythm Gastrointestinal: Normal Bowel Sounds, Non Tender, Soft Rectal: Deferred Extremity: No Calf Tenderness, No Pedal Edema, Other (EXTENSIVE BRUISING ALONG LEFT LATERAL HIP) Neurologic/Psychiatric: Alert, Other (oriented to person, place, not time) Skin: Warm/Dry, Ecchymosis (LEFT LATERAL HIP) Results Lab Laboratory Tests 04/08/22 11:41: Glucometer 136H 04/09/22 05:06: White Blood Count 5.6, Red Blood Count 3.70L, Hemoglobin 11.7L, Hematocrit 34L, Mean Corpuscular Volume 91, Mean Corpuscular Hemoglobin 32, Mean Corpuscular Hemoglobin Concent 35, Red Cell Distribution Width 13.4, Platelet Count 139, Mean Platelet Volume 10.3, Immature Granulocyte % (Auto) 0, Neutrophils (%) (Auto) 64, Lymphocytes (%) (Auto) 22, Monocytes (%) (Auto) 9, Eosinophils (%) (Auto) 4, Basophils (%) (Auto) 0, Neutrophils # (Auto) 3.6, Lymphocytes # (Auto) 1.3, Monocytes # (Auto) 0.5, Eosinophils # (Auto) 0.3, Basophils # (Auto) 0.0, Immature Granulocyte # (Auto) 0.0, Percent Immature Platelet Fraction 4.7, Sodium Level 137, Potassium Level 4.3, Chloride Level 105, Carbon Dioxide Level 23, Anion Gap 9, Blood Urea Nitrogen 6L, Creatinine 0.70, Estimat Glomerular Filtration Rate 99, BUN/Creatinine Ratio 9, Glucose Level 145H, Calcium Level 8.3L, Corrected Calcium 9.1, Phosphorus Level 3.6, Magnesium Level 2.2, Total Bilirubin 1.0, Aspartate Amino Transf (AST/SGOT) 23, Alanine Aminotransferase (ALT/SGPT) 20, Alkaline Phosphatase 63, Total Protein 5.3L, Albumin 3.0L Microbiology 04/06/22 MRSA Screen - Final, Complete MRSA not isolated Assessment/Plan Assessment/Plan Admission Dx DELIRIUM TREMENS SEIZURE ACUTE ALCOHOL WITHDRAWAL CHRONIC ALCOHOLISM T12 COMPRESSION FRACTURE DOUBLE VISION ALCOHOLIC DEMENTIA RHABDOMYOLISIS HYPERBILIRUBINEMIA HYPERGLYCEMIA Assessment and Plan DELIRIUM TREMENS SEIZURE ACUTE ALCOHOL WITHDRAWAL CHRONIC ALCOHOLISM T12 COMPRESSION FRACTURE DOUBLE VISION ALCOHOLIC DEMENTIA RHABDOMYOLISIS HYPERBILIRUBINEMIA HYPERGLYCEMIA DELIRIUM TREMENS SEIZURE DUE TO ACUTE ALCOHOL WITHDRAWAL WITH CHRONIC ALCOHOLISM - PT ON CIWA PROTOCOL - - PT IMPROVED, WILL MOVE TO THE 4TH FLOOR TODAY IF HE STAYS CLEAR MENTALLY AND IS NOT COMBATIVE OR AGGRESSIVE WITH STAFF AND IF HIS DT'S DO NOT RETURN. - DISCUSSION WITH SISTER, ABOUT SERIOUSNESS OF THE SITUATION, SHE UNDERSTANDS, AND IS INTERESTED IN FURTHER CARE FOR HER BROTHER AT A [facility] - SHE DOES NOT BELIEVE SHE WILL BE ABLE TO CARE FOR HIM IN HIS HOME OR HER HOME. T12 COMPRESSION FRACTURE - PT STILL HAVING PAIN, BUT IT IS IMPROVED. DOUBLE VISION - WORK UP OUTPATIENT PARTIALLY COMPLETED. ALCOHOLIC DEMENTIA - SUPPORTIVE CARE - STARTED THIAMINE AND FOLATE RHABDOMYOLISIS IMPROVED WITH FLUIDS HYPERBILIRUBINEMIA - IMPROVING PT IS HYDRATED AND LIVER RECOVERS FROM SHOCK AND DETOX HYPERGLYCEMIA - MONITOR LABS DVT PROPHYLAXIS WITH SCD'S GI PROPHYLAXIS WITH PPI Admission Dx DELIRIUM TREMENS SEIZURE ACUTE ALCOHOL WITHDRAWAL CHRONIC ALCOHOLISM T12 COMPRESSION FRACTURE DOUBLE VISION ALCOHOLIC DEMENTIA RHABDOMYOLISIS HYPERBILIRUBINEMIA HYPERGLYCEMIA Clinical Quality Measures Admission Status Admission Dx DELIRIUM TREMENS SEIZURE ACUTE ALCOHOL WITHDRAWAL CHRONIC ALCOHOLISM T12 COMPRESSION FRACTURE DOUBLE VISION ALCOHOLIC DEMENTIA RHABDOMYOLISIS HYPERBILIRUBINEMIA HYPERGLYCEMIA KARLI ANTUNEZ MD Apr 09, 2022 08:33
[2022-04-09] MEDS: THIAMINE INJECTION 100 MG, FOLIC ACID INJECTION 1 MG, MAGNESIUM SULFATE 2 GM, VITAMIN M... IV SCH ×5 (08:38)
[2022-04-09] MEDS: THIAMINE 100 MG (VITAMIN B-1) TAB PO SCH (08:53)
[2022-04-09] MEDS: FOLIC ACID 1 MG TAB PO SCH (08:53)
[2022-04-09] MEDS: ENOXAPARIN 40 MG/0.4 ML (LOVENOX) SYR SC SCH (08:53)
[2022-04-09] MEDS: PANTOPRAZOLE 40 MG (PROTONIX) VIAL IV SCH (08:53)
[2022-04-09] MEDS: MAGNESIUM OXIDE (MAG-OX)400 MG TAB PO SCH ×2 (08:53→21:41)
[2022-04-09] MEDS ORDERED: FOLIC ACID 1 MG TAB PO SCH (09:00)
[2022-04-09] MEDS: MULTIVITAMINS LIQUID 15 ML UDC PO SCH (09:00)
--- NOTE | 2022-04-09 11:17 | Physical Therapy Evaluation ---
PT Evaluation-General Medical Diagnosis Admission Date Apr 06, 2022 at 21:20 Medical Diagnosis: alcohol withdrawl/seizure Onset Date: Apr 06, 2022 Therapy Diagnosis Therapy Diagnosis: generalized weakness/debility Height/Weight Height (Feet): 6 Height (Inches): 0.00 Weight (Pounds): 188 Weight (Ounces): 0.0 Precautions Precautions/Isolations: Seizure, Fall Prevention Referral Physician: Jessica Reason for Referral: Evaluation/Treatment Medical History Pertinent Medical History: Alcoholism, HTN Additional Medical History multiple falls reported by family Current History EMS from home secondary to seizure Reviewed History: Yes Social History Home: Single Level Current Living Status: Alone Prior Prior Level of Function SCALE: Activities may be completed with or without assistive devices. 8-Aozseusryl-jgumwbv completes the activity by him/herself with no assistance from a helper. 5-Set-up or Clean-up Assistance-helper sets up or cleans up; patient completes activity. [place] assists only prior to or following the activity. 4-Supervision or Touching Assistance-helper provides verbal cues and/or touching/steadying and/or contact guard assistance as patient completes activity. Assistance may be provided throughout the activity or intermittently. 3-Partial/Moderate Assistance-helper does LESS THAN HALF the effort. [place] lifts, holds or supports trunk or limbs, but provides less than half the effort. 2-Substantial/Maximal Assistance-helper does MORE THAN HALF the effort. [place] lifts or holds trunk or limbs and provides more than half the effort. 0-Mjlvccxmu-gmfqqq does ALL the effort. Patient does none of the effort to complete the activity. Or, the assistance of 2 or more helpers is required for the patient to complete the activity. If activity was not attempted, code reason: 7-Patient Refused. 9-Not Applicable-not attempted and the patient did not perform the activity before the current illness, exacerbation or injury. 10-Not Attempted due to Environmental Limitations-(lack of equipment, weather restraints, etc.). 88-Not Attempted due to Medical Conditions or Safety Concerns. Bed Mobility: 6 Transfers (B,C,W/C): 6 Gait: 6 Stairs: 6 Indoor Mobility (Ambulation): Independent Stairs: Independent Prior Devices Use: None PT Evaluation-Current Subjective Patient in bed with family present. Agrees to PT. Objective Patient Orientation: Person, Confused Attachments: Waddell Catheter, IV ROM/Strength ROM Lower Extremities bilateral LE WFL Strength Lower Extremities 3/5 grossly bilateral LE Integumentary/Posture Bladder Incontinence: Waddell Cath Posture trunk and bilateral knee flexed posture Neuromuscular (Tone, Coordination, Reflexes) severely diminished coordination, proprioception and motor planning Sensory Vision: Functional (sees double out of right eye ) Hearing: Functional Transfers Roll Left to Right (QC): 2 Sit to Lying (QC): 2 Lying to Sitting/Side of Bed(Q: 2 Sit to Stand (QC): 2 Chair/Byx-cu-Qkoxu Xfer(QC): 2 Gait Does the Patient Walk?: No and Walking Goal IS indicated Walk 10 feet (QC): 88 Walk 50 ft with 2 Turns(QC): 88 Walk 150 ft (QC): 88 Distance: 5' Gait Assistive Device: FWW Comments/Gait Description difficulty with motor planning to initiate gait sequence Balance Sitting Static: Fair Sitting Dynamic: Fair Standing Static: Poor Standing Dynamic: Poor Assessment/Needs 71 y.o. male, will benefit from skilled PT to address functional strength and mobility to improve current LOF. Patient is confused and displays severely diminished overall coordination. Rehab Potential: Guarded PT [facility] Goals Railcar Foreman Goals PT Railcar Foreman Goals Time Frame: Apr 18, 2022 Roll Left & Right (QC): 4 Sit to Lying (QC): 4 Lying-Sitting on Side/Bed(QC): 4 Sit to Stand (QC): 4 Chair/Agm-yt-Ykxwl Xfer(QC): 4 Toilet Transfer (QC): 4 Walk 10 feet (QC): 4 Walk 50ft with 2 Turns (QC): 4 Walk 150 ft (QC): 4 PT Plan Problem List Problem List: Activity Tolerance, Functional Strength, Safety, Balance, Gait, Transfer, Bed Mobility Treatment/Plan Treatment Plan: Continue Plan of Care Treatment Plan: Bed Mobility, Education, Functional Activity Rick, Functional Strength, Gait, Safety, Therapeutic Exercise, Transfers Treatment Duration: Apr 18, 2022 Frequency: 6 times per week Estimated Hrs Per Day: .25 hour per day Patient and/or Family Agrees t: Yes Time/GCodes Time In: 1020 Time Out: 1040 Total Billed Treatment Time: 20 Total Billed Treatment 1 visit EVModC 20 min LEE GAO PT Apr 09, 2022 11:17
--- NOTE | 2022-04-09 11:31 | Tele-ICU Progress Note ---
Subjective Date Seen by a Provider: Apr 09, 2022 Time Seen by a Provider: 11:30 Subjective/Events-last exam (Tele-ICU Physician , Progress Note ) Available chart/ vitals / labs / Images reviewed Video assessment done using teleICU camera, rest of exam as per RN Discussed with RN , EXAM PER RN Events overnight : OFF PRECEDEX Afebrile FiO2 - 2l I/O = neg Drips: banana bad d5 1/2 Pressors: , hemodynamically stable Consultants: Hospital course: (04/06) 71yM Admit Alcohol withdrawl SZ, New T12 compression fx A/P ETOH withdrawal -CIWA - improving , OFF PRECEDEX - vitamins - monitor for seizures - non observed inpatient s/p fall, left gluteal muscle hematoma and T 12 compression - monitor Hypoxia - 2 l O2 - IS Lines : periph (Central Line Necessity Reviewed) Waddell: + OG: Nutrition: po Analgesia: Anxiety/ delirium VTE Prophylaxis: scd , if hematoma stable , will start on locenox Stress Ulcer Prophylaxis: na Plans in collaboration with bedside consultants and IM MDs. Discussed with RN to reach out if any questions or concerns A total of 31 minutes of critical care time was devoted to this patient today, required to treat and/or prevent further deterioration of critical care condition ( as above) . Sepsis Event Evaluation Height, Weight, BMI Height: 6'0.00" Weight: 188lbs. 0.0oz. 85.548032gw; 33.42 BMI Method:Stated Exam Exam Patient acknowledged, consented, and participated in this virtual visit which was conducted using real time audio/video Vital Signs Date Time Temp Pulse Resp B/P (MAP) Pulse Ox O2 Delivery O2 Flow Rate FiO2 04/09/22 11:00 90 22 147/90 94 Nasal Cannula 2.00 04/09/22 10:00 70 13 167/79 Nasal Cannula 2.00 04/09/22 09:00 69 29 162/88 95 Nasal Cannula 2.00 04/09/22 08:10 Room Air 04/09/22 08:00 70 27 160/83 94 Nasal Cannula 2.00 04/09/22 07:59 36.0 04/09/22 07:00 66 04/09/22 07:00 62 11 155/81 95 Nasal Cannula 2.00 04/09/22 06:00 51 23 125/68 95 Nasal Cannula 2.00 04/09/22 05:00 50 24 115/64 95 Nasal Cannula 2.00 04/09/22 04:00 49 22 116/65 96 Nasal Cannula 2.00 04/09/22 04:00 Nasal Cannula 2.00 04/09/22 04:00 36.1 04/09/22 03:00 50 25 108/62 96 Nasal Cannula 2.00 04/09/22 02:00 50 24 99/60 96 Nasal Cannula 2.00 04/09/22 01:00 53 27 114/63 96 Nasal Cannula 2.00 04/09/22 01:00 53 04/09/22 00:00 53 26 103/61 95 Nasal Cannula 2.00 04/08/22 23:59 Nasal Cannula 2.00 04/08/22 23:52 36.4 04/08/22 23:00 56 29 113/62 95 Nasal Cannula 2.00 04/08/22 22:00 57 27 106/62 94 Nasal Cannula 2.00 04/08/22 21:00 60 24 106/61 94 Nasal Cannula 2.00 04/08/22 20:00 Nasal Cannula 2.00 04/08/22 20:00 78 27 110/63 91 Nasal Cannula 2.00 04/08/22 19:20 37.3 04/08/22 19:07 79 128/72 04/08/22 19:02 89 171/79 04/08/22 19:00 87 21 130/74 96 Nasal Cannula 2.00 04/08/22 19:00 90 04/08/22 16:00 89 11 171/79 94 Nasal Cannula 2.00 04/08/22 15:17 Nasal Cannula 2.00 04/08/22 15:00 77 27 158/90 94 Nasal Cannula 2.00 04/08/22 14:00 72 16 157/88 98 Nasal Cannula 2.00 04/08/22 13:00 69 142/70 98 Nasal Cannula 2.00 04/08/22 13:00 70 04/08/22 12:00 70 15 138/75 98 Nasal Cannula 2.00 04/08/22 12:00 Nasal Cannula 2.00 04/08/22 12:00 36.1 I & O 04/09/22 07:00 Intake Total 2030 ml Output Total 3250 ml Balance -1220 ml Height & Weight Height: 6'0.00" Weight: 188lbs. 0.0oz. 85.868668ct; 33.42 BMI Method:Stated General Appearance: Other (OBTUNDED) HEENT: Other (PUPILS EQUAL, REACTIVE TO LIGHT) Respiratory: Chest Non Tender, Lungs Clear, Normal Breath Sounds, No Accessory Muscle Use, No Respiratory Distress Cardiovascular: Regular Rate, Rhythm Capillary Refill: Less Than 3 Seconds Peripheral Pulses: 1+ Dorsalis Pedis (R), 1+ Left Dors-Pedis (L) Gastrointestinal: normal bowel sounds, non tender, soft, no organomegaly Extremity: No Calf Tenderness, No Pedal Edema, Other (EXTENSIVE BRUISING ALONG LEFT LATERAL HIP) Neurologic/Psychiatric: Other (OBTUNDED) Skin: Warm/Dry, Ecchymosis (LEFT LATERAL HIP) Results Lab Laboratory Tests 04/08/22 04:50 04/09/22 05:06 Assessment/Plan Assessment/Plan ` TAMEKA GALLAGHER MD Apr 09, 2022 11:31
[2022-04-09] MEDS: LORazepam 1 MG (ATIVAN) TAB PO PRN (16:55)
[2022-04-09] MEDS: LORazepam INJ 2 MG/ML (ATIVAN) VIAL IV PRN ×3 (18:11→21:34)
[2022-04-10] MEDS: LORazepam INJ 2 MG/ML (ATIVAN) VIAL IV PRN ×2 (00:09→20:09)
[2022-04-10] MEDS: D5 1/2 NS W/KCL 20 MEQ/L 1,000 ML IV SCH ×4 (01:58→20:01)
[2022-04-10] MEDS: LORazepam 1 MG (ATIVAN) TAB PO PRN ×3 (04:16→16:20)
[2022-04-10 06:05] LABS: BASOPHILS % (AUTO) 0 % (0-10); EOSINOPHILS # (AUTO) 0.1 10^3/uL (0.0-0.3); EOSINOPHILS % (AUTO) 2 % (0-10); HEMATOCRIT 38 % (40-54); HEMOGLOBIN 12.9 g/dL (13.3-17.7); LYMPHOCYTES # (AUTO) 1.1 10^3/uL (1.0-4.0); LYMPHOCYTES % (AUTO) 18 % (12-44); MEAN CORPUSCULAR HEMOGLOBIN 31 pg (25-34); MEAN CORPUSCULAR HGB CONC 34 g/dL (32-36); MEAN CORPUSCULAR VOLUME 90 fL (80-99); MONOCYTES # (AUTO) 0.7 10^3/uL (0.0-1.0); MONOCYTES % (AUTO) 12 % (0-12); NEUTROPHILS # (AUTO) 4.3 10^3/uL (1.8-7.8); NEUTROPHILS % (AUTO) 68 % (42-75); PLATELET COUNT 158 10^3/uL (130-400); WHITE BLOOD COUNT 6.4 10^3/uL (4.3-11.0)
[2022-04-10 06:22] LABS: ALBUMIN 3.9 GM/DL (3.2-4.5)
[2022-04-10 06:23] LABS: POTASSIUM 4.2 MMOL/L (3.6-5.0)
[2022-04-10 06:24] LABS: CALCIUM 9.4 MG/DL (8.5-10.1)
[2022-04-10 06:25] LABS: TOTAL PROTEIN 6.7 GM/DL (6.4-8.2)
[2022-04-10 06:27] LABS: BILIRUBIN,TOTAL 1.3 MG/DL (0.1-1.0)
[2022-04-10 06:28] LABS: PHOSPHORUS 3.5 MG/DL (2.3-4.7)
[2022-04-10 06:29] LABS: CREATININE SERUM 0.79 MG/DL (0.60-1.30)
[2022-04-10] MEDS: MAGNESIUM OXIDE (MAG-OX)400 MG TAB PO SCH ×2 (08:22→19:54)
[2022-04-10] MEDS: ENOXAPARIN 40 MG/0.4 ML (LOVENOX) SYR SC SCH (08:22)
[2022-04-10] MEDS: THIAMINE 100 MG (VITAMIN B-1) TAB PO SCH (08:22)
[2022-04-10] MEDS: PANTOPRAZOLE 40 MG (PROTONIX) VIAL IV SCH (08:22)
[2022-04-10] MEDS: FOLIC ACID 1 MG TAB PO SCH (08:22)
--- NOTE | 2022-04-10 10:33 | Progress Note ---
Subjective Subjective Date Seen by Provider: Apr 10, 2022 Time Seen by Provider: 08:05 Pt reports that he is better today- he is not seeing as much in double vision as he had been prior to admission. Staff reports that he has been inappropriate at times - [place] and talked about making sure the ladies could defend themselves from the men, and tried to get a staff member to "climb in the bed" with him. He was not aggressive, just suggestive. This morning, that has cleared. Review of Systems General: No Chills; Fatigue Pulmonary: No Dyspnea, No Cough Cardiovascular: No: Chest Pain, Palpitations, Edema, Lt Headedness Gastrointestinal: No: Nausea, Vomiting, Abdominal Pain Neurological: No: Seizures Objective Exam Vital Signs Vital Signs Date Time Temp Pulse Resp B/P (MAP) Pulse Ox O2 Delivery O2 Flow Rate FiO2 04/10/22 09:58 Room Air 0.00 04/10/22 07:51 37.0 86 18 138/78 96 Room Air 04/10/22 07:00 84 04/10/22 03:44 37.1 83 19 129/76 97 Nasal Cannula 2.00 04/10/22 01:00 89 04/09/22 23:45 37.4 85 19 155/87 99 Nasal Cannula 2.00 04/09/22 22:08 88 04/09/22 20:13 37.5 93 24 174/99 97 Nasal Cannula 1.50 04/09/22 19:30 Nasal Cannula 2.00 04/09/22 16:15 37.4 92 24 177/81 97 Nasal Cannula 2.00 04/09/22 15:00 96 37 161/110 Nasal Cannula 2.00 04/09/22 14:00 103 14 186/94 Nasal Cannula 2.00 04/09/22 13:10 37.1 04/09/22 13:00 98 36 158/87 Nasal Cannula 2.00 04/09/22 13:00 99 04/09/22 12:00 Room Air 04/09/22 12:00 86 23 161/106 93 Nasal Cannula 2.00 04/09/22 11:00 90 22 147/90 94 Nasal Cannula 2.00 I & O 04/10/22 07:00 Intake Total 2200 ml Output Total 2550 ml Balance -350 ml General Appearance: No Apparent Distress, WD/WN Eyes: Bilateral Eye PERRL HEENT: Other (PUPILS EQUAL, REACTIVE TO LIGHT) Respiratory: Chest Non Tender, Lungs Clear, Normal Breath Sounds, No Accessory Muscle Use, No Respiratory Distress Cardiovascular: Regular Rate, Rhythm Gastrointestinal: Normal Bowel Sounds, Non Tender, Soft Rectal: Deferred Extremity: No Calf Tenderness, No Pedal Edema Neurologic/Psychiatric: Alert, Other (oriented to person, place, not time) Skin: Normal Color, Warm/Dry, Ecchymosis (LEFT LATERAL HIP) Results Lab Laboratory Tests 04/10/22 05:40: White Blood Count 6.4, Red Blood Count 4.18L, Hemoglobin 12.9L, Hematocrit 38L, Mean Corpuscular Volume 90, Mean Corpuscular Hemoglobin 31, Mean Corpuscular Hemoglobin Concent 34, Red Cell Distribution Width 13.6, Platelet Count 158, Mean Platelet Volume 10.0, Immature Granulocyte % (Auto) 0, Neutrophils (%) (Auto) 68, Lymphocytes (%) (Auto) 18, Monocytes (%) (Auto) 12, Eosinophils (%) (Auto) 2, Basophils (%) (Auto) 0, Neutrophils # (Auto) 4.3, Lymphocytes # (Auto) 1.1, Monocytes # (Auto) 0.7, Eosinophils # (Auto) 0.1, Basophils # (Auto) 0.0, Immature Granulocyte # (Auto) 0.0, Sodium Level 139, Potassium Level 4.2, Chloride Level 103, Carbon Dioxide Level 25, Anion Gap 11, Blood Urea Nitrogen 6L, Creatinine 0.79, Estimat Glomerular Filtration Rate 95, BUN/Creatinine Ratio 8, Glucose Level 157H, Calcium Level 9.4, Corrected Calcium 9.5, Phosphorus Level 3.5, Magnesium Level 2.0, Total Bilirubin 1.3H, Aspartate Amino Transf (AST/SGOT) 42H, Alanine Aminotransferase (ALT/SGPT) 23, Alkaline Phosphatase 80, Total Protein 6.7, Albumin 3.9 Microbiology 04/06/22 MRSA Screen - Final, Complete MRSA not isolated Assessment/Plan Assessment/Plan Admission Dx DELIRIUM TREMENS SEIZURE ACUTE ALCOHOL WITHDRAWAL CHRONIC ALCOHOLISM T12 COMPRESSION FRACTURE DOUBLE VISION ALCOHOLIC DEMENTIA RHABDOMYOLISIS HYPERBILIRUBINEMIA HYPERGLYCEMIA Assessment and Plan DELIRIUM TREMENS SEIZURE ACUTE ALCOHOL WITHDRAWAL CHRONIC ALCOHOLISM T12 COMPRESSION FRACTURE DOUBLE VISION ALCOHOLIC DEMENTIA RHABDOMYOLISIS HYPERBILIRUBINEMIA HYPERGLYCEMIA DELIRIUM TREMENS SEIZURE DUE TO ACUTE ALCOHOL WITHDRAWAL WITH CHRONIC ALCOHOLISM - PT ON CIWA PROTOCOL - IMPROVED ON PROTOCOL, WILL CONTINUE TO MONITOR PATIENT SINCE HE WAS A 1 ON 1 DUE TO HIS DELIRIUM YESTERDAY AND EARLY THIS MORNING. THE CORRECTION WILL NOT TAKE HIM A PATIENT UNLESS HE IS NO LONGER IN NEED OF 1 ON 1 CARE. T12 COMPRESSION FRACTURE - IMPROVED. DOUBLE VISION - IMPROVED WITH CLEARING OF ALCOHOL FROM HIS SYSTEM AND TREATMENT WITH THIAMINE AND FOLATE. ALCOHOLIC DEMENTIA - SUPPORTIVE CARE - STARTED THIAMINE AND FOLATE RHABDOMYOLISIS IMPROVED WITH FLUIDS HYPERBILIRUBINEMIA - IMPROVING PT IS HYDRATED AND LIVER RECOVERS FROM SHOCK AND DETOX HYPERGLYCEMIA - MONITOR LABS DVT PROPHYLAXIS WITH SCD'S GI PROPHYLAXIS WITH PPI Admission Dx DELIRIUM TREMENS SEIZURE ACUTE ALCOHOL WITHDRAWAL CHRONIC ALCOHOLISM T12 COMPRESSION FRACTURE DOUBLE VISION ALCOHOLIC DEMENTIA RHABDOMYOLISIS HYPERBILIRUBINEMIA HYPERGLYCEMIA Clinical Quality Measures Admission Status Admission Dx DELIRIUM TREMENS SEIZURE ACUTE ALCOHOL WITHDRAWAL CHRONIC ALCOHOLISM T12 COMPRESSION FRACTURE DOUBLE VISION ALCOHOLIC DEMENTIA RHABDOMYOLISIS HYPERBILIRUBINEMIA HYPERGLYCEMIA KARLI ANTUNEZ MD Apr 10, 2022 10:33
[2022-04-10] MEDS: MULTIVITAMINS LIQUID 15 ML UDC PO SCH (12:16)
[2022-04-10 12:55] VITALS: BP 141/85
--- NOTE | 2022-04-10 13:33 | Physical Therapy Daily Note ---
PT Daily Note-Current Subjective Patient in recliner pre tx, complaints of back pain. Sitter in room states patient has been wanting to get up and walk. Appearance Patient in bed post tx with nurse call, phone, tray, bed alarm on, sitter in room. Mental Status Patient Orientation: Person, Confused Attachments: IV Transfers SCALE: Activities may be completed with or without assistive devices. 8-Zclixinxyk-bqyqpop completes the activity by him/herself with no assistance from a helper. 5-Set-up or Clean-up Assistance-helper sets up or cleans up; patient completes activity. [place] assists only prior to or following the activity. 4-Supervision or Touching Assistance-helper provides verbal cues and/or touching/steadying and/or contact guard assistance as patient completes activity. Assistance may be provided throughout the activity or intermittently. 3-Partial/Moderate Assistance-helper does LESS THAN HALF the effort. [place] lifts, holds or supports trunk or limbs, but provides less than half the effort. 2-Substantial/Maximal Assistance-helper does MORE THAN HALF the effort. [place] lifts or holds trunk or limbs and provides more than half the effort. 4-Ejdihqiwl-rdfpyt does ALL the effort. Patient does none of the effort to complete the activity. Or, the assistance of 2 or more helpers is required for the patient to complete the activity. If activity was not attempted, code reason: 7-Patient Refused. 9-Not Applicable-not attempted and the patient did not perform the activity before the current illness, exacerbation or injury. 10-Not Attempted due to Environmental Limitations-(lack of equipment, weather restraints, etc.). 88-Not Attempted due to Medical Conditions or Safety Concerns. Roll Left & Right (QC): 3 Sit to Lying (QC): 3 Sit to Stand (QC): 2 Chair/Cnh-tb-Wvhjb Xfer(QC): 3 Gait Training Distance: 300' Walk 10 feet (QC): 3 Walk 50 ft with 2 Turns(QC): 3 Walk 150 ft (QC): 3 Gait Persons Needed: 1 Gait Assistive Device: FWW Sitter followed patient with recliner in case he needed to sit. Patient ambula carmelina with a shuffling gait, needs cues to take bigger steps, the whole time he is slightly retropulsive and needs a little assist from the back to keep him going forward. Treatments bed mobility and transfers, ambulation Assessment Current Status: Fair Progress improved endurance but needs significant assist with general mobility PT Dressmaker Or Tailor Goals Skilled Nursing Goals PT Dressmaker Or Tailor Goals Time Frame: Apr 18, 2022 Roll Left & Right (QC): 4 Sit to Lying (QC): 4 Lying-Sitting on Side/Bed(QC): 4 Sit to Stand (QC): 4 Chair/Cuh-pu-Jizmz Xfer(QC): 4 Toilet Transfer (QC): 4 Walk 10 feet (QC): 4 Walk 50ft with 2 Turns (QC): 4 Walk 150 ft (QC): 4 PT Plan Problem List Problem List: Activity Tolerance, Functional Strength, Safety, Balance, Gait, Transfer, Bed Mobility, ROM Treatment/Plan Treatment Plan: Continue Plan of Care Treatment Plan: Bed Mobility, Education, Functional Activity Rick, Functional Strength, Gait, Safety, Therapeutic Exercise, Transfers Treatment Duration: Apr 18, 2022 Frequency: 6 times per week Estimated Hrs Per Day: .25 hour per day Patient and/or Family Agrees t: Yes Safety Risks/Education Patient Education: Gait Training, Transfer Techniques, Correct Positioning, Safety Issues Teaching Recipient: Patient Teaching Methods: Demonstration, Discussion Response to Teaching: Reinforcement Needed Time/GCodes Time In: 1311 Time Out: 1323 Total Billed Treatment Time: 12 Total Billed Treatment 1 visit GT 12' SEBASTIAN ADHIKARI PT Apr 10, 2022 13:33
[2022-04-10 16:12] VITALS: BP 166/79
[2022-04-10 19:02] VITALS: BP 147/81
[2022-04-10] MEDS ORDERED: HALOPERIDOL 5 MG/ML (HALDOL) VIAL ONE (20:35)
[2022-04-10] MEDS: HALOPERIDOL 5 MG/ML (HALDOL) VIAL IM PRN (20:37)
[2022-04-10] MEDS: ACETAMINOPHEN ER 650 MG (TYLENOL ARTHRITIS) PO SCH (22:38)
[2022-04-11 00:19] VITALS: BP 130/79
[2022-04-11 03:47] VITALS: BP 133/72
[2022-04-11] MEDS: D5 1/2 NS W/KCL 20 MEQ/L 1,000 ML IV SCH (05:28)
[2022-04-11 05:35] LABS: BASOPHILS % (AUTO) 0 % (0-10); EOSINOPHILS # (AUTO) 0.3 10^3/uL (0.0-0.3); EOSINOPHILS % (AUTO) 6 % (0-10); HEMATOCRIT 37 % (40-54); HEMOGLOBIN 12.7 g/dL (13.3-17.7); LYMPHOCYTES # (AUTO) 1.2 10^3/uL (1.0-4.0); LYMPHOCYTES % (AUTO) 25 % (12-44); MEAN CORPUSCULAR HEMOGLOBIN 31 pg (25-34); MEAN CORPUSCULAR HGB CONC 34 g/dL (32-36); MEAN CORPUSCULAR VOLUME 90 fL (80-99); MONOCYTES # (AUTO) 0.6 10^3/uL (0.0-1.0); MONOCYTES % (AUTO) 13 % (0-12); NEUTROPHILS # (AUTO) 2.8 10^3/uL (1.8-7.8); NEUTROPHILS % (AUTO) 57 % (42-75); PLATELET COUNT 162 10^3/uL (130-400); WHITE BLOOD COUNT 4.9 10^3/uL (4.3-11.0)
[2022-04-11 05:51] LABS: ALBUMIN 3.6 GM/DL (3.2-4.5)
[2022-04-11 05:52] LABS: CALCIUM 9.2 MG/DL (8.5-10.1)
[2022-04-11 05:53] LABS: TOTAL PROTEIN 6.2 GM/DL (6.4-8.2)
[2022-04-11 05:55] LABS: BILIRUBIN,TOTAL 1.1 MG/DL (0.1-1.0)
[2022-04-11 05:57] LABS: CREATININE SERUM 0.71 MG/DL (0.60-1.30); PHOSPHORUS 4.7 MG/DL (2.3-4.7)
[2022-04-11] MEDS: ACETAMINOPHEN ER 650 MG (TYLENOL ARTHRITIS) PO SCH ×3 (06:57→20:24)
[2022-04-11 08:00] VITALS: BP 156/93
[2022-04-11] MEDS: MAGNESIUM OXIDE (MAG-OX)400 MG TAB PO SCH ×2 (08:55→20:24)
[2022-04-11] MEDS: THIAMINE 100 MG (VITAMIN B-1) TAB PO SCH (08:55)
[2022-04-11] MEDS: ENOXAPARIN 40 MG/0.4 ML (LOVENOX) SYR SC SCH (08:55)
[2022-04-11] MEDS: PANTOPRAZOLE 40 MG (PROTONIX) TAB PO SCH (08:55)
[2022-04-11] MEDS: FOLIC ACID 1 MG TAB PO SCH (08:55)
[2022-04-11] MEDS: PROPRANOLOL 20 MG (INDERAL) TABLET PO SCH ×2 (08:56→20:24)
--- NOTE | 2022-04-11 09:26 | Physical Therapy Daily Note ---
PT Daily Note-Current Subjective Patient and family agree to PT. Patient is more alert and oriented today. Mental Status Patient Orientation: Person, Time, Situation Attachments: IV Transfers SCALE: Activities may be completed with or without assistive devices. 3-Ufacfsvqsu-gxkykpc completes the activity by him/herself with no assistance from a helper. 5-Set-up or Clean-up Assistance-helper sets up or cleans up; patient completes activity. [place] assists only prior to or following the activity. 4-Supervision or Touching Assistance-helper provides verbal cues and/or touching/steadying and/or contact guard assistance as patient completes activity. Assistance may be provided throughout the activity or intermittently. 3-Partial/Moderate Assistance-helper does LESS THAN HALF the effort. [place] lifts, holds or supports trunk or limbs, but provides less than half the effort. 2-Substantial/Maximal Assistance-helper does MORE THAN HALF the effort. [place] lifts or holds trunk or limbs and provides more than half the effort. 6-Aywkgezqy-gtgluf does ALL the effort. Patient does none of the effort to complete the activity. Or, the assistance of 2 or more helpers is required for the patient to complete the activity. If activity was not attempted, code reason: 7-Patient Refused. 9-Not Applicable-not attempted and the patient did not perform the activity before the current illness, exacerbation or injury. 10-Not Attempted due to Environmental Limitations-(lack of equipment, weather restraints, etc.). 88-Not Attempted due to Medical Conditions or Safety Concerns. Lying to Sitting/Side of Bed(Q: 3 Sit to Stand (QC): 3 Chair/Zou-on-Szfab Xfer(QC): 3 patient ambulated to restroom, stood and urinated with PT CGA for balance Gait Training Distance: 250' x 1/15' x 2 Walk 10 feet (QC): 3 Walk 50 ft with 2 Turns(QC): 3 Walk 150 ft (QC): 3 Gait Assistive Device: FWW NBOS with shuffle gait sequence/flexed trunk and bilateral knee posture Assessment Patient requires time to complete all functional tasks. PT assist with FWW advancement due to patient's gait sequence. PT to increase activity as tolerated by patient. PT Stockroom Helper Goals Stockroom Helper Goals PT Stockroom Helper Goals Time Frame: Apr 18, 2022 Roll Left & Right (QC): 4 Sit to Lying (QC): 4 Lying-Sitting on Side/Bed(QC): 4 Sit to Stand (QC): 4 Chair/Jpp-zl-Uquub Xfer(QC): 4 Toilet Transfer (QC): 4 Walk 10 feet (QC): 4 Walk 50ft with 2 Turns (QC): 4 Walk 150 ft (QC): 4 PT Plan Treatment/Plan Treatment Plan: Continue Plan of Care Treatment Plan: Bed Mobility, Education, Functional Activity Rick, Functional Strength, Gait, Safety, Therapeutic Exercise, Transfers Treatment Duration: Apr 18, 2022 Frequency: 6 times per week Estimated Hrs Per Day: .25 hour per day Patient and/or Family Agrees t: Yes Time/GCodes Time In: 810 Time Out: 833 Total Billed Treatment Time: 23 Total Billed Treatment 1 visit FA 9 min GT 14 min LEE GAO PT Apr 11, 2022 09:26
[2022-04-11] MEDS: MULTIVITAMINS LIQUID 15 ML UDC PO SCH (09:56)
--- NOTE | 2022-04-11 10:00 | Progress Note ---
Subjective Subjective Date Seen by Provider: Apr 11, 2022 Time Seen by Provider: 09:45 STAFF REPORTED LAST NIGHT THAT PT WAS INAPPROPRIATE AGAIN WITH SUGGESTIVE COMMENTS AND A FEW TIMES AGGRESSIVE COMMENTS WITHOUT ACTION. PT WAS INITIALLY TREATING STAFF IF HE WAS STILL IN THE GIVING ORDERS. PT'S SISTER STATES THAT AFTER SHE CAME UP TO THE HOSPITAL, HE WAS CALM AND SLEPT MOST OF THE NIGHT. PT GROGGY THIS MORNING, HAS SOME PAIN IN HIS BACK, BUT STAFF THIS MORNING REPORTS THAT HE WAS APPROPRIATE AND QUIET THIS MORNING. Review of Systems General: No Chills; Fatigue Pulmonary: No Dyspnea, No Cough Cardiovascular: No: Chest Pain, Palpitations, Edema, Lt Headedness Gastrointestinal: No: Nausea, Vomiting, Abdominal Pain Neurological: Confusion (INTERMITTENT); No: Weakness, Seizures Objective Exam Vital Signs Vital Signs Date Time Temp Pulse Resp B/P (MAP) Pulse Ox O2 Delivery O2 Flow Rate FiO2 04/11/22 08:00 35.2 81 156/93 (114) 96 04/11/22 08:00 95 Room Air 0.00 04/11/22 03:47 36.4 74 17 133/72 (92) 95 Room Air 04/11/22 00:19 36.8 81 18 130/79 (96) 93 Room Air 04/10/22 20:01 Room Air 04/10/22 19:02 36.8 76 20 147/81 (103) 95 Room Air 04/10/22 16:12 36.8 77 18 166/79 (108) 96 Room Air 04/10/22 12:55 36.7 96 16 141/85 (103) 96 Room Air 04/10/22 09:58 Room Air 0.00 I & O 04/11/22 07:00 Intake Total 2600 ml Output Total 300 ml Balance 2300 ml General Appearance: No Apparent Distress, WD/WN Eyes: Bilateral Eye PERRL HEENT: Other (PUPILS EQUAL, REACTIVE TO LIGHT) Respiratory: Chest Non Tender, Lungs Clear, Normal Breath Sounds, No Accessory Muscle Use, No Respiratory Distress Cardiovascular: Regular Rate, Rhythm Gastrointestinal: Normal Bowel Sounds, Non Tender, Soft Rectal: Deferred Extremity: No Pedal Edema Neurologic/Psychiatric: Other (AWAKENS TO VOICE, BUT IS GROGGY) Skin: Warm/Dry Results Lab Laboratory Tests 04/11/22 05:00: White Blood Count 4.9, Red Blood Count 4.12L, Hemoglobin 12.7L, Hematocrit 37L, Mean Corpuscular Volume 90, Mean Corpuscular Hemoglobin 31, Mean Corpuscular Hemoglobin Concent 34, Red Cell Distribution Width 13.9, Platelet Count 162, Mean Platelet Volume 10.0, Immature Granulocyte % (Auto) 0, Neutrophils (%) (Auto) 57, Lymphocytes (%) (Auto) 25, Monocytes (%) (Auto) 13H, Eosinophils (%) (Auto) 6, Basophils (%) (Auto) 0, Neutrophils # (Auto) 2.8, Lymphocytes # (Auto) 1.2, Monocytes # (Auto) 0.6, Eosinophils # (Auto) 0.3, Basophils # (Auto) 0.0, Immature Granulocyte # (Auto) 0.0, Sodium Level 138, Potassium Level 4.0, Chloride Level 103, Carbon Dioxide Level 24, Anion Gap 11, Blood Urea Nitrogen 7, Creatinine 0.71, Estimat Glomerular Filtration Rate 98, BUN/Creatinine Ratio 10, Glucose Level 138H, Calcium Level 9.2, Corrected Calcium 9.5, Phosphorus Level 4.7, Magnesium Level 2.0, Total Bilirubin 1.1H, Aspartate Amino Transf (AST/SGOT) 33, Alanine Aminotransferase (ALT/SGPT) 20, Alkaline Phosphatase 76, Total Protein 6.2L, Albumin 3.6 Microbiology 04/06/22 MRSA Screen - Final, Complete MRSA not isolated Assessment/Plan Assessment/Plan Admission Dx DELIRIUM TREMENS SEIZURE ACUTE ALCOHOL WITHDRAWAL CHRONIC ALCOHOLISM T12 COMPRESSION FRACTURE DOUBLE VISION ALCOHOLIC DEMENTIA RHABDOMYOLISIS HYPERBILIRUBINEMIA HYPERGLYCEMIA Assessment and Plan DELIRIUM TREMENS SEIZURE ACUTE ALCOHOL WITHDRAWAL CHRONIC ALCOHOLISM T12 COMPRESSION FRACTURE DOUBLE VISION ALCOHOLIC DEMENTIA RHABDOMYOLISIS HYPERBILIRUBINEMIA HYPERGLYCEMIA DELIRIUM WITH BEHAVIORS HYPERTENSION DELIRIUM TREMENS SEIZURE DUE TO ACUTE ALCOHOL WITHDRAWAL WITH CHRONIC ALCOHOLISM - PT ON CIWA PROTOCOL - IMPROVED ON PROTOCOL, WILL CONTINUE TO MONITOR PATIENT SINCE HE WAS A 1 ON 1 DUE TO HIS DELIRIUM YESTERDAY AND EARLY THIS MORNING. THE [facility]IDENT[facility] WILL NOT TAKE HIM A PATIENT UNLESS HE IS NO LONGER IN NEED OF 1 ON 1 CARE. DELIRIUM WITH BEHAVIORS - SHOULD IMPROVE WITH CLEARING OF SENSORIUM FROM ALCOHOL WITHDRAWAL, ADDED PRN HALDOL - DISCUSSION WITH HIS SISTER - SONIA - TODAY. IF HE CANNOT IMPROVE ON A BEHAVIOR STANDPOINT WITHOUT THE NEED FOR CONTINUED HALDOL, WE MAY HAVE TROUBLE GETTING [facility] TO THE RESIDENTIAL, WE MAY HAVE TO LOOK INTO [facility] FOR PSYCH[facility]ATRIC CARE. T12 COMPRESSION FRACTURE - IMPROVED. DOUBLE VISION - IMPROVED WITH CLEARING OF ALCOHOL FROM HIS SYSTEM AND TREATMENT WITH DAVID INE AND FOLATE. ALCOHOLIC DEMENTIA - SUPPORTIVE CARE - STARTED THIAMINE AND FOLATE RHABDOMYOLISIS IMPROVED WITH FLUIDS HYPERBILIRUBINEMIA - IMPROVING PT IS HYDRATED AND LIVER RECOVERS FROM SHOCK AND DETOX HYPERGLYCEMIA - MONITOR LABS HYPERTENSION - IMPROVED ON PROPRANOLOL DVT PROPHYLAXIS WITH SCD'S GI PROPHYLAXIS WITH PPI Admission Dx DELIRIUM TREMENS SEIZURE ACUTE ALCOHOL WITHDRAWAL CHRONIC ALCOHOLISM T12 COMPRESSION FRACTURE DOUBLE VISION ALCOHOLIC DEMENTIA RHABDOMYOLISIS HYPERBILIRUBINEMIA HYPERGLYCEMIA Clinical Quality Measures Admission Status Admission Dx DELIRIUM TREMENS SEIZURE ACUTE ALCOHOL WITHDRAWAL CHRONIC ALCOHOLISM T12 COMPRESSION FRACTURE DOUBLE VISION ALCOHOLIC DEMENTIA RHABDOMYOLISIS HYPERBILIRUBINEMIA HYPERGLYCEMIA KARLI ANTUNEZ MD Apr 11, 2022 10:00
[2022-04-11 12:04] VITALS: BP 156/89
[2022-04-11 16:09] VITALS: BP 131/86
[2022-04-11 19:31] VITALS: BP 138/77
[2022-04-12] VITALS: BP 163/78
[2022-04-12 01:46] VITALS: BP 143/80
[2022-04-12] MEDS: HALOPERIDOL 5 MG/ML (HALDOL) VIAL IM PRN (02:18)
[2022-04-12 03:51] VITALS: BP 165/84
[2022-04-12] MEDS: ACETAMINOPHEN ER 650 MG (TYLENOL ARTHRITIS) PO SCH ×2 (05:43→13:29)
[2022-04-12] MEDS ORDERED: LORazepam INJ 2 MG/ML (ATIVAN) VIAL IVP ONE (06:45)
[2022-04-12 07:08] VITALS: BP 144/75
--- NOTE | 2022-04-12 09:03 | Progress Note ---
Subjective Review of Systems General: No Chills; Fatigue Pulmonary: No Dyspnea, No Cough Cardiovascular: No: Chest Pain, Palpitations, Edema, Lt Headedness Gastrointestinal: No: Nausea, Vomiting, Abdominal Pain Neurological: Confusion (INTERMITTENT); No: Weakness, Seizures Objective Exam Vital Signs Vital Signs Date Time Temp Pulse Resp B/P (MAP) Pulse Ox O2 Delivery O2 Flow Rate FiO2 04/12/22 07:08 36.6 79 22 144/75 (98) 93 Room Air 04/12/22 03:51 36.5 67 17 165/84 (111) 96 Room Air 04/12/22 01:46 143/80 (101) 04/12/22 00:00 36.9 70 17 163/78 (106) 95 Room Air 04/11/22 21:00 Room Air 0.00 04/11/22 20:26 94 Room Air 0.00 04/11/22 19:31 36.6 83 18 138/77 (97) 96 04/11/22 16:09 73 16 131/86 (101) 04/11/22 12:04 35.3 83 14 156/89 (111) 96 Room Air I & O 04/12/22 07:00 Intake Total 4770 ml Balance 4770 ml General Appearance: No Apparent Distress, WD/WN Eyes: Bilateral Eye PERRL HEENT: Other (PUPILS EQUAL, REACTIVE TO LIGHT) Respiratory: Chest Non Tender, Lungs Clear, Normal Breath Sounds, No Accessory Muscle Use, No Respiratory Distress Cardiovascular: Regular Rate, Rhythm Gastrointestinal: Normal Bowel Sounds, Non Tender, Soft Rectal: Deferred Extremity: No Pedal Edema Neurologic/Psychiatric: Other (AWAKENS TO VOICE, BUT IS GROGGY) Skin: Warm/Dry Results Lab Microbiology 04/06/22 MRSA Screen - Final, Complete MRSA not isolated Assessment/Plan Assessment/Plan Admission Dx DELIRIUM TREMENS SEIZURE ACUTE ALCOHOL WITHDRAWAL CHRONIC ALCOHOLISM T12 COMPRESSION FRACTURE DOUBLE VISION ALCOHOLIC DEMENTIA RHABDOMYOLISIS HYPERBILIRUBINEMIA HYPERGLYCEMIA Assessment and Plan DELIRIUM TREMENS SEIZURE ACUTE ALCOHOL WITHDRAWAL CHRONIC ALCOHOLISM T12 COMPRESSION FRACTURE DOUBLE VISION ALCOHOLIC DEMENTIA RHABDOMYOLISIS HYPERBILIRUBINEMIA HYPERGLYCEMIA DELIRIUM WITH BEHAVIORS HYPERTENSION DELIRIUM TREMENS SEIZURE DUE TO ACUTE ALCOHOL WITHDRAWAL WITH CHRONIC ALCOHOLISM - PT ON CIWA PROTOCOL - IMPROVED ON PROTOCOL, WILL CONTINUE TO MONITOR PATIENT SINCE HE WAS A 1 ON DUE TO HIS DELIRIUM YESTERDAY AND EARLY THIS MORNING. THE [facility] WILL NOT TAKE HIM A PATIENT UNLESS HE IS NO LONGER IN NEED OF 1 ON 1 CARE. DELIRIUM WITH BEHAVIORS - SHOULD IMPROVE WITH CLEARING OF SENSORIUM FROM ALCOHOL WITHDRAWAL, ADDED PRN HALDOL - DISCUSSION WITH HIS SISTER - SONIA - TODAY. IF HE CANNOT IMPROVE ON A BEHAVIOR STANDPOINT WITHOUT THE NEED FOR CONTINUED HALDOL, WE MAY HAVE TROUBLE GETTING [facility] TO THE [facility], WE MAY HAVE TO LOOK INTO [facility] FOR PSYCHIATRIC CARE. T12 COMPRESSION FRACTURE - IMPROVED. DOUBLE VISION - IMPROVED WITH CLEARING OF ALCOHOL FROM HIS SYSTEM AND TREATMENT WITH THIAMINE AND FOLATE. ALCOHOLIC DEMENTIA - SUPPORTIVE CARE - STARTED THIAMINE AND FOLATE RHABDOMYOLISIS IMPROVED WITH FLUIDS HYPERBILIRUBINEMIA - IMPROVING PT IS HYDRATED AND LIVER RECOVERS FROM SHOCK AND DETOX HYPERGLYCEMIA - MONITOR LABS HYPERTENSION - IMPROVED ON PROPRANOLOL DVT PROPHYLAXIS WITH SCD'S GI PROPHYLAXIS WITH PPI Admission Dx DELIRIUM TREMENS SEIZURE ACUTE ALCOHOL WITHDRAWAL CHRONIC ALCOHOLISM T12 COMPRESSION FRACTURE DOUBLE VISION ALCOHOLIC DEMENTIA RHABDOMYOLISIS HYPERBILIRUBINEMIA HYPERGLYCEMIA Clinical Quality Measures Admission Status Admission Dx DELIRIUM TREMENS SEIZURE ACUTE ALCOHOL WITHDRAWAL CHRONIC ALCOHOLISM T12 COMPRESSION FRACTURE DOUBLE VISION ALCOHOLIC DEMENTIA RHABDOMYOLISIS HYPERBILIRUBINEMIA HYPERGLYCEMIA KARLI ANTUNEZ MD Apr 12, 2022 09:03
[2022-04-12] MEDS: MAGNESIUM OXIDE (MAG-OX)400 MG TAB PO SCH (09:40)
[2022-04-12] MEDS: THIAMINE 100 MG (VITAMIN B-1) TAB PO SCH (09:40)
[2022-04-12] MEDS: PANTOPRAZOLE 40 MG (PROTONIX) TAB PO SCH (09:40)
[2022-04-12] MEDS: FOLIC ACID 1 MG TAB PO SCH (09:40)
[2022-04-12] MEDS: PROPRANOLOL 20 MG (INDERAL) TABLET PO SCH (09:40)
[2022-04-12] MEDS: ENOXAPARIN 40 MG/0.4 ML (LOVENOX) SYR SC SCH (09:40)
[2022-04-12] MEDS: MULTIVITAMINS LIQUID 15 ML UDC PO SCH (09:41)
[2022-04-12 11:35] VITALS: BP 136/76
[2022-04-12] MEDS: LORazepam 1 MG (ATIVAN) TAB PO PRN (13:29)
--- NOTE | 2022-04-12 16:36 | Discharge Summary ---
Diagnosis/Chief Complaint Date of Admission Apr 06, 2022 at 21:20 Date of Discharge Reason Hospital Visit PT IS A 71 Y/O MALE WHO IS KNOWN TO ME FROM CLINIC. HE HAS AN EXTENSIVE H ISTORY OF ALCOHOLISM. PER ER REPORT AND HIS SISTER, HE HAD "FALLEN" MULTIPLE TIMES OVER THE PAST WEEK, AND HAD WHAT IS SUSPECTED TO BE DT SEIZURE FROM ALCOHOL WITHDRAWAL. Discharge Summary Discharge Physical Examination Allergies: Coded Allergies: No Known Drug Allergies (Unverified , 11/23/14) Vitals & I&Os Vital Signs Date Time Temp Pulse Resp B/P (MAP) Pulse Ox O2 Delivery O2 Flow Rate FiO2 04/12/22 16:18 04/12/22 11:35 36.4 77 20 97 Room Air 04/12/22 08:45 0.00 Discharge Instructions to patient/family Please see electronic discharge instructions given to patient. Discharge Medications Reviewed and agree with Discharge Medication list on patient's Discharge Instruction sheet KARLI ANTUNEZ MD Apr 12, 2022 16:36
== END 2022-04-12 15:00 | disposition left against medical advice (07) | DRG 894 ==
LOC: EDUNIT# 19:58 → ER 19:59 → ICU 21:20 → 4TH 04-09 15:14
PROVIDERS: ADMIT Family Medicine; ATTEND Family Medicine
DX: F10.231 Alcohol dependence with withdrawal delirium (principal); S22.089A Unspecified fracture of T11-T12 vertebra, initial encounter for closed fracture; M62.82 Rhabdomyolysis; R56.9 Unspecified convulsions; E78.00 Pure hypercholesterolemia, unspecified; I10 Essential (primary) hypertension; Z86.73 Personal history of transient ischemic attack (TIA), and cerebral infarction without residual deficits; N40.0 Benign prostatic hyperplasia without lower urinary tract symptoms; M19.90 Unspecified osteoarthritis, unspecified site; Z85.46 Personal history of malignant neoplasm of prostate; R73.9 Hyperglycemia, unspecified; S00.03XA Contusion of scalp, initial encounter; Z87.891 Personal history of nicotine dependence; H53.2 Diplopia; E80.6 Other disorders of bilirubin metabolism; R09.02 Hypoxemia; S30.0XXA Contusion of lower back and pelvis, initial encounter; W18.30XA Fall on same level, unspecified, initial encounter; Z20.822 Contact with and (suspected) exposure to COVID-19
CPT/HCPCS: 36415; 51701; 70450; 71045; 71260; 72125; 72128; 72131; 72170; 74177; 80053; 80306; 80320; 80329; 81000; 82550; 82553; 82947; 83036; 83735; 83874; 84100; 84145; 84484; 85025; 85610; 85652; 85730; 86141; 87081; 87636; 93005; 93041; 94760

== ENCOUNTER 2022-10-28 14:30 | Emergency (ER) | payer MEDICARE, OTHER ==
[~2022-10-28] VITALS: Ht 182.9 cm; Wt 84.0 kg
[~2022-10-28 14:30] MED LIST changes: +FOLI1TAB33 PO; +NF-ALLE180 PO; +NUGENIX PO; +PREVAGEN PO; +THIA100T66 PO
[2022-10-28] MEDS ORDERED: ORPHENADRINE 60 MG/2 ML (NORFLEX) AMP (ED ONLY) IM STA (15:14)
[2022-10-28] MEDS ORDERED: KETOROLAC 30 MG/ML VIAL IM STA (15:14)
--- NOTE | 2022-10-28 15:24 | ED General ---
General Chief Complaint: Chest Wall Stated Complaint: FELL | RT SIDE PAIN Nursing Triage Note: PT AMB TO ED BY POV WITH C/O R RIB AND SHOULDER PAIN. PT REPORTS HE SLIPPED ON ICE ON HIS FRONT PORCH, FELL OFF THE PORCH APPROX 3 FT, LANDING ON HIS R SIDE. PT BELIEVES HE IS ON A BLOOD THINNER, UNSURE WHICH ONE. Source of Information: Patient Exam Limitations: No Limitations History of Present Illness Date Seen by Provider: Oct 28, 2022 Time Seen by Provider: 15:08 Initial Comments 72-year-old male presents today with right-sided lower rib pain and right shoulder pain. Patient states he fell down the stairs yesterday at 3:30 PM and landed on the brick sidewalk on his right side. Patient states his head landed on the grass, denies loss of consciousness. Patient states he does have a problem with drinking and had had a couple drinks yesterday before this happened. Patient reports history of hypertension, states he takes medication for high blood pressure but is unsure what he takes. Patient thinks he took his medicine this morning. Timing/Duration: 1 Day Allergies and Home Medications Allergies Coded Allergies: No Known Drug Allergies (Unverified , 11/23/14) Patient Home Medication List Home Medication List Reviewed: Yes Atorvastatin Calcium (Lipitor) 80 Mg Tablet, 80 MG PO DAILY, (Reported) Entered as Reported by: MARGARITA SOUZA on 10/31/18 1103 Fexofenadine HCl (Fexofenadine HCl) 180 Mg Tablet, 180 MG PO DAILY PRN for ALLERGIES, (Reported) Entered as Reported by: GINNA PARDO on 04/07/22 153 Folic Acid (Folic Acid) 1 Mg Tablet, 1 MG PO DAILY, (Reported) Entered as Reported by: GINNA PARDO on 04/07/22 1529 Propranolol HCl (Propranolol HCl) 10 Mg Tablet, 10 MG PO BID, (Reported) Entered as Reported by: MARGARITA SOUZA on 10/31/18 1103 Thiamine HCl (B-1) 100 Mg Tablet, 100 MG PO DAILY, (Reported) Entered as Reported by: GINNA PARDO on 04/07/22 1530 Review of Systems Review of Systems Constitutional: no symptoms reported Respiratory: other (pain with deep breaths) Cardiovascular: no symptoms reported Gastrointestinal: no symptoms reported Psychiatric/Neurological: Denies Headache Past Jpjwvpy-Vtlzof-Iredgv Hx Patient Social History Tobacco Use?: No Use of E-Cig and/or Vaping dev: No Alcohol Use?: Yes Alcohol type: Beer Alcohol Frequency: Daily Pt feels they are or have been: No Immunizations Up To Date Tetanus Booster (TDap): Unknown PED Vaccines UTD: Yes Influenza Vaccine Up-to-Date: No; Not Current First/Initial COVID19 Vaccinat: 2020 Second COVID19 Vaccination Ander: 2020 Third COVID19 Vaccination Date: 2020 Seasonal Allergies Seasonal Allergies: No Past Medical History Surgeries: Yes (HERNIA REPAIR) Abdominal, Orthopedic Respiratory: Yes (HAS BEEN ON HOME O2 IN PAST) Pneumonia Currently Using CPAP: No Currently Using BIPAP: No Cardiac: Yes (JERRY) High Cholesterol, Hypertension Neurological: Yes TIA Reproductive Disorders: No Sexually Transmitted Disease: No HIV/AIDS: No Genitourinary: Yes Benign Prostatic Hyperpl Gastrointestinal: Yes (dysphagia) Musculoskeletal: Yes Arthritis Endocrine: No HEENT: No Loss of Vision: Left Hearing Impairment: Denies Cancer: Yes Prostate Psychosocial: No Integumentary: No Blood Disorders: No Adverse Reaction/Blood Tranf: No Family Medical History Hypertension 19 FATHER Hypertension Physical Exam Vital Signs Vital Signs - First Documented 10/28/22 14:40 Temp 36.6 Pulse 107 Resp 18 B/P (MAP) 170/104 (126) Pulse Ox 97 O2 Delivery Room Air Capillary Refill : Less Than 3 Seconds Height, Weight, BMI Height: 6'0.00" Weight: 188lbs. 0.0oz. [id number]; 25.00 BMI Method:Stated General Appearance: WD/WN, Mild Distress Neck: Full Range of Motion, Non Tender, Supple Respiratory: Lungs Clear, Normal Breath Sounds, No Accessory Muscle Use, No Respiratory Distress, Other (tender over R ribs) Cardiovascular: Regular Rate, Rhythm, No Edema, No Gallop, No JVD, No Murmur Neurologic/Psychiatric: Alert, Oriented x3, No Motor/Sensory Deficits Comments limited ROM Right shoulder, tender over shoulder Progress/Results/Core Measures Suspected Sepsis SIRS Temperature: Pulse: 107 Respiratory Rate: 18 Blood Pressure 170 /104 Mean: 126 Results/Orders My Orders Orders - LUIS RUBIO APRN Ketorolac Injection (Toradol Injection) (10/28/22 15:14) Orphenadrine Inj (Ed Only) (Norflex Inje (10/28/22 15:14) Ribs, Right 2-3 Views (10/28/22 15:14) Shoulder, Right, 3 Views (10/28/22 15:14) Vital Signs/I&O 10/28/22 10/28/22 14:40 16:40 Temp 36.6 36.6 Pulse 107 107 Resp 18 18 B/P (MAP) 170/104 (126) 170/104 Pulse Ox 97 97 O2 Delivery Room Air Room Air Capillary Refill : Less Than 3 Seconds Blood Pressure Mean: 126 Progress Note #1: Time: 15:08 Progress Note Patient seen and evaluated. X-ray of right ribs and right shoulder ordered. Toradol and Norflex ordered for pain control. Progress Note #2: Time: 16:27 Progress Note Results discussed with patient. Instructed patient to use incentive spirometer 10 times approximately every 1-2 hours prevent pneumonia. Instructed patient to use a pillow to splint when coughing or taking a deep breaths to help with pain. 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 Departure Impression Primary Impression: Fracture of rib Disposition: 01 HOME, SELF-CARE Condition: Stable Departure-Patient Inst. Decision time for Depature: 16:28 Referrals: KARLI ANTUNEZ MD (PCP/Family) Primary Care Physician Patient Instructions: Rib Fracture (DC) Add. Discharge Instructions: Use incentive spirometer 10 times every 1-2 hours to prevent pneumonia. Splint with pillow while coughing or deep breathing to help with pain. Alternate Tylenol and ibuprofen every 4 hours for pain. Return for any new or concerning symptoms, increased shortness of breath, severe abdominal pain, dizziness Follow-up with primary care provider All discharge instructions reviewed with patient and/or family. Voiced under standing. LUIS RUBIO APRN Oct 28, 2022 15:24
--- NOTE | 2022-10-28 15:45 | Diagnostic Imaging Report ---
EXAMINATION: Right shoulder radiographs, 3 views. COMPARISON: None. HISTORY: 72-year-old male, right shoulder pain. FINDINGS: There is an anchor in the right humeral head. The humeral head is normally positioned relative to the glenoid. There is moderate to severe glenohumeral joint space loss with osteophyte formation. The acromioclavicular joint is normally aligned. There are no prominent acromioclavicular degenerative changes. There are fractures involving the right fourth, fifth, and sixth ribs which are minimally displaced. IMPRESSION: 1. Minimally displaced fractures of the right fourth, fifth, and sixth ribs. 2. No identified acute bony abnormality specifically in the region of the right shoulder. 3. Advanced glenohumeral arthritis. Dictated by: Dictated on workstation # [id number]
--- NOTE | 2022-10-28 15:46 | Diagnostic Imaging Report ---
INDICATION: Right chest pain. COMPARISON: Correlation is made with a CT chest of 04/06/2022. FINDINGS: There are at least mildly displaced fractures postero-right laterally at the levels of the right 8th and 9th ribs. Multiple additional old healed rib fracture deformities are chronic and were present on the previous CT. No lung contusion, pneumothorax, or hemothorax. IMPRESSION: Multiple old right rib fractures as well as presumed acute at least unhealed fractures of the 8th and 9th ribs noted. No pleural pathology. Dictated by: Dictated on workstation # [id number]
[2022-10-28 16:40] VITALS: BP 170/104
== END 2022-10-28 16:40 | disposition home or self-care (01) ==
LOC: EDUNIT# 14:30 → ER 14:34
DX: S22.41XA Multiple fractures of ribs, right side, initial encounter for closed fracture (principal); I10 Essential (primary) hypertension; W10.9XXA Fall (on) (from) unspecified stairs and steps, initial encounter
CPT/HCPCS: 71100; 73030; 99284

== ENCOUNTER → 2023-01-05 | Outpatient (CLI) | payer MEDICARE, OTHER | LOC: WOUNDCARE 13:06 | PROVIDERS: ATTEND Family Medicine | DX: L89.623 Pressure ulcer of left heel, stage 3 (principal); L89.610 Pressure ulcer of right heel, unstageable; I70.234 Atherosclerosis of native arteries of right leg with ulceration of heel and midfoot; I70.244 Atherosclerosis of native arteries of left leg with ulceration of heel and midfoot; L03.115 Cellulitis of right lower limb; L03.116 Cellulitis of left lower limb; F10.10 Alcohol abuse, uncomplicated | CPT/HCPCS: 11042; 87070; 87205; A6197; G0463; 87077 ==

== ENCOUNTER 2023-02-24 19:07 | Inpatient (IN) | payer MEDICARE, OTHER ==
[~2023-02-24] VITALS: Ht 182.9 cm; Wt 80.5 kg
[2023-02-24] MEDS ORDERED: LACTATED RINGERS 1,000 ML IV ONE (19:30)
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
[2023-02-24 19:39] LABS: BASOPHILS % (AUTO) 1 % (0-10); EOSINOPHILS # (AUTO) 0.1 10^3/uL (0.0-0.3); EOSINOPHILS % (AUTO) 2 % (0-10); HEMATOCRIT 44 % (40-54); HEMOGLOBIN 14.9 g/dL (13.3-17.7); LYMPHOCYTES # (AUTO) 2.1 10^3/uL (1.0-4.0); LYMPHOCYTES % (AUTO) 35 % (12-44); MEAN CORPUSCULAR HEMOGLOBIN 31 pg (25-34); MEAN CORPUSCULAR HGB CONC 34 g/dL (32-36); MEAN CORPUSCULAR VOLUME 92 fL (80-99); MEAN PLATELET VOLUME 10.3 fL (9.0-12.2); MONOCYTES # (AUTO) 0.5 10^3/uL (0.0-1.0); MONOCYTES % (AUTO) 8 % (0-12); NEUTROPHILS # (AUTO) 3.1 10^3/uL (1.8-7.8); NEUTROPHILS % (AUTO) 54 % (42-75); PLATELET COUNT 233 10^3/uL (130-400); WHITE BLOOD COUNT 5.8 10^3/uL (4.3-11.0)
[2023-02-24 19:52] LABS: ALBUMIN 4.2 GM/DL (3.2-4.5)
[2023-02-24 19:53] LABS: POTASSIUM 4.7 MMOL/L (3.6-5.0)
[2023-02-24 19:54] LABS: CALCIUM 9.5 MG/DL (8.5-10.1)
[2023-02-24 19:55] LABS: TOTAL PROTEIN 8.1 GM/DL (6.4-8.2)
[2023-02-24 19:56] LABS: ERYTHROCYTE SEDIMENTATION RATE 11 MM/HR (0-30)
[2023-02-24 19:57] LABS: BILIRUBIN,TOTAL 0.5 MG/DL (0.1-1.0)
[2023-02-24 19:59] LABS: CREATININE SERUM 1.02 MG/DL (0.60-1.30)
[2023-02-24 20:01] LABS: MAGNESIUM 2.1 MG/DL (1.6-2.4)
[2023-02-24 20:04] LABS: FIBRIN DEGRADATION PRODUCTS 2.31 UG/ML (0.00-0.49); INR 0.8 (0.8-1.4)
[2023-02-24 20:12] LABS: CREATINE KINASE MB 8.3 NG/ML (<6.6)
[2023-02-24] MEDS ORDERED: NITROGLYCERIN 2% OINT 1 GM UNIT DOSE PACKET TOP ONE (20:45)
[2023-02-24] MEDS ORDERED: ASPIRIN 81 MG CHEW (CHILDREN'S ASA) PO ONE (20:45)
--- NOTE | 2023-02-24 20:56 | Diagnostic Imaging Report ---
INDICATION: Shortness of air. COMPARISON: 04/06/2022 FINDINGS: Single frontal radiographic view of the chest was obtained and shows normal cardiac silhouette and pulmonary vasculature. Lungs show diffuse prominence of the interstitium. There is more focal alveolar opacity within the left suprahilar region. No large effusion or pneumothorax is seen. Osseous structures show no gross acute abnormalities. IMPRESSION: 1. Mild diffuse prominence of the interstitium suggestive of underlying edema or interstitial pneumonia. 2. More focal airspace disease of the left suprahilar region is also noted and may be on the basis of more focal pneumonia or atelectasis. Follow-up is advised. Dictated by: Dictated on workstation # [id number]
[2023-02-24 21:00] LABS: BILIRUBIN,URINE NEGATIVE (NEGATIVE); CLARITY,URINE SL CLOUDY; COLOR,URINE YELLOW; GLUCOSE, URINE (UA) NEGATIVE (NEGATIVE); KETONES,URINE NEGATIVE (NEGATIVE); LEUKOCYTE ESTERASE ,URINE NEGATIVE (NEGATIVE); NITRITE,URINE NEGATIVE (NEGATIVE); PROTEIN,URINE NEGATIVE (NEGATIVE)
[2023-02-24] MEDS ORDERED: FUROSEMIDE 40 MG/4 ML INJ (LASIX) IVP ONE (21:00)
[2023-02-24] MEDS ORDERED: ENOXAPARIN 40 MG/0.4 ML (LOVENOX) SYR SC ONE (21:00)
[2023-02-24 21:13] LABS: AMPHETAMINE SCREEN, URINE NEGATIVE (NEGATIVE); BARBITURATE SCREEN URINE NEGATIVE (NEGATIVE); BENZODIAZEPINES SCREEN URINE NEGATIVE (NEGATIVE); CANNABINOID SCREEN, URINE NEGATIVE (NEGATIVE); COCAINE SCREEN URINE NEGATIVE (NEGATIVE); METHADONE STAT NEGATIVE (NEGATIVE); OPIATE SCREEN URINE NEGATIVE (NEGATIVE); OXYCODONE STAT NEGATIVE (NEGATIVE); PROPOXYPHENE STAT NEGATIVE (NEGATIVE); TRICYCLIC ANTIDEPRESSANTS SCRE NEGATIVE (NEGATIVE)
[2023-02-24 21:20] LABS: BACTERIA,URINE NEGATIVE /HPF; SQUAMOUS EPITHELIAL CELL,UR RARE /HPF
[2023-02-24] MEDS ORDERED: 1/2 NS IV SOLUTION 1,000 ML IV PRN ×2 (21:45→22:00)
[2023-02-24] MEDS ORDERED: ANTACID SUSP 30 ML UDC (MYLANTA) PO PRN ×2 (21:45→22:00)
[2023-02-24] MEDS ORDERED: ONDANSETRON 4 MG/2 ML (SDV) Z0FRAN IV PRN ×2 (21:45→22:00)
[2023-02-24] MEDS ORDERED: LORazepam INJ 2 MG/ML (ATIVAN) VIAL IM/IV PRN ×2 (21:45→22:00)
[2023-02-24] MEDS ORDERED: ONDANSETRON 4 MG (ZOFRAN) ORAL DISSOLVE TAB SL PRN ×2 (21:45→22:00)
[2023-02-24] MEDS ORDERED: D5 1/2 NS 1000 ML IV SOLUTION 1,000 ML IV PRN ×2 (21:45→22:00)
[2023-02-24] MEDS ORDERED: SENNA W/DOCUSATE (SENOKOT S) TABLET PO PRN ×2 (21:45→22:00)
--- NOTE | 2023-02-24 21:51 | Tele-ICU Progress Note ---
Subjective Date Seen by a Provider: Feb 24, 2023 Subjective/Events-last exam cc etoh abuse hpi 72 yo male presents from home after drinking etoh. hx taken from ED report. patient states drank excessive vodka and had worsening sob. usually takes about 3 pints of vodka a daily, but today drank 6 pints. no other symptoms. no cp. no fever. no n/v/d. no falls. no abd pain. also states has not eaten today. all NKDA pmhx HTN, dyslipedmia pshx nc famhx unk social +etoh, lives at home, denies illicits/tobacco ros see above vitals Temp 36.1 Pulse 89 Resp 24 B/P (MAP) 149/117 (128) Pulse Ox 98 O2 Delivery Room Air exam deffered (not bedside). per ed notes: lungs normal abd soft, normal very talkative per ed labs see emar of note etoh 99 la negative ast/alt 37/27 bnp elevated i/p 1. Etohism 2. Pending DTs 3. elevated BNP, r/o CHF exac CIWA protocol with ativan watch for withdrawels wd precautions etoh wd protocol (thiamine, fa, mvi) diet as tolerated for now echo ekg cards icu admission order set dw nurse video assessement done see orders ct 30m Sepsis Event Evaluation Sepsis Stage: Ruled Out Height, Weight, BMI Height: 6'0.00" Weight: 188lbs. 0.0oz. 85.841496bb; 25.00 BMI Method:Stated Focused Exam Lactate Level 02/24/23 19:25: Lactic Acid Level 1.47 Lactic Acid Level Laboratory Tests Test 02/24/23 19:25 Lactic Acid Level 1.47 MMOL/L (0.50-2.00) Exam Exam Patient acknowledged, consented, and participated in this virtual visit which w as conducted using real time audio/video Vital Signs Date Time Temp Pulse Resp B/P (MAP) Pulse Ox O2 Delivery O2 Flow Rate FiO2 02/24/23 19:13 36.1 89 24 149/117 (128) 98 Room Air Height & Weight Height: 6'0.00" Weight: 188lbs. 0.0oz. 85.313395mk; 25.00 BMI Method:Stated General Appearance: No Apparent Distress, WD/WN, Other (TALKS NON-STOP AT GREAT LENGTH, DIFFICULT TO KEEP ON SUBJECT, BUT SPEECH IS CLEAR. + ODOR OF ETOH) HEENT: PERRL/EOMI, Other (DRIED FOOD/DRINK AROUND MOUTH AND CHIN AREA. ) Neck: Normal Inspection Respiratory: Chest Non Tender, Normal Breath Sounds, No Accessory Muscle Use, No Respiratory Distress, Other (PT DOES NOT APPEAR DYSPNEIC, TALKS NON-STOP IN FULL SENTENCES, WITHOUT DIFFICULTY. NO ORTHOPNEA NOTED ON EXAM ) Cardiovascular: Regular Rate, Rhythm, No Edema, No JVD, No Murmur, Normal Peripheral Pulses Capillary Refill: Less Than 3 Seconds Extremity: Normal Capillary Refill, Normal Inspection, Normal Range of Motion, Non Tender, No Calf Tenderness, No Pedal Edema Neurologic/Psychiatric: Alert, Oriented x3, No Motor/Sensory Deficits, Normal Mood/Affect, director teen post II-XII Norm as Tested Skin: Normal Color, Warm/Dry Results Lab Laboratory Tests 02/24/23 19:25 Assessment/Plan Assessment/Plan see [facility] Critical Care: Critically Ill Patient AVERY GAUTHIER DO Feb 24, 2023 21:51
[2023-02-24] MEDS ORDERED: NS IV 500 ML 500 ML IV PRN (22:00)
[2023-02-24] MEDS ORDERED: LORazepam 1 MG (ATIVAN) TAB PO PRN (22:00)
[2023-02-24] MEDS ORDERED: LORazepam INJ 2 MG/ML (ATIVAN) VIAL IV PRN (22:00)
[2023-02-24] MEDS ORDERED: NITROGLYCERIN 0.4 MG SL TABS BTL 25'S SL PRN (22:15)
[2023-02-24] MEDS ORDERED: ONDANSETRON 4 MG/2 ML (SDV) Z0FRAN IVP PRN (22:15)
[2023-02-24] MEDS ORDERED: morphine INJ 4 MG/ML 1 ML (VIAL/SYRINGE) IV PRN (22:15)
[2023-02-24 22:25] LABS: PROTHROMBIN TIME PATIENT 13.6 SEC (12.2-14.7)
[2023-02-24] MEDS ORDERED: D5 1/2 NS W/KCL 20 MEQ/L 1,000 ML IV SCH (22:30)
[2023-02-24] MEDS: LORazepam 1 MG (ATIVAN) TAB PO PRN (22:55)
[2023-02-25] MEDS: LORazepam INJ 2 MG/ML (ATIVAN) VIAL IV PRN ×6 (00:40→22:28)
[2023-02-25 02:42] LABS: BASOPHILS % (AUTO) 0 % (0-10); EOSINOPHILS # (AUTO) 0.1 10^3/uL (0.0-0.3); EOSINOPHILS % (AUTO) 1 % (0-10); HEMATOCRIT 42 % (40-54); HEMOGLOBIN 14.3 g/dL (13.3-17.7); LYMPHOCYTES # (AUTO) 1.2 10^3/uL (1.0-4.0); LYMPHOCYTES % (AUTO) 20 % (12-44); MEAN CORPUSCULAR HEMOGLOBIN 31 pg (25-34); MEAN CORPUSCULAR HGB CONC 34 g/dL (32-36); MEAN CORPUSCULAR VOLUME 91 fL (80-99); MEAN PLATELET VOLUME 10.2 fL (9.0-12.2); MONOCYTES # (AUTO) 0.7 10^3/uL (0.0-1.0); MONOCYTES % (AUTO) 11 % (0-12); NEUTROPHILS # (AUTO) 3.9 10^3/uL (1.8-7.8); NEUTROPHILS % (AUTO) 67 % (42-75); PLATELET COUNT 177 10^3/uL (130-400); WHITE BLOOD COUNT 5.8 10^3/uL (4.3-11.0)
[2023-02-25 02:53] LABS: POTASSIUM 3.6 MMOL/L (3.6-5.0)
[2023-02-25 02:54] LABS: CALCIUM 9.3 MG/DL (8.5-10.1)
[2023-02-25 02:59] LABS: CREATININE SERUM 0.82 MG/DL (0.60-1.30); PHOSPHORUS 3.5 MG/DL (2.3-4.7)
[2023-02-25 03:02] LABS: MAGNESIUM 1.8 MG/DL (1.6-2.4)
[2023-02-25] MEDS: NITROGLYCERIN 2% OINT 1 GM UNIT DOSE PACKET TOP SCH ×2 (03:32→08:15)
[2023-02-25] MEDS: MAGNESIUM 1 GM/100 ML IVPB 100 ML IV SCH ×3 (04:27→09:12)
[2023-02-25 05:00] LABS: INR 1.1 (0.8-1.4); PROTHROMBIN TIME PATIENT 14.2 SEC (12.2-14.7)
[2023-02-25] MEDS: KCL 20 MEQ TAB (K-DUR) PO SCH ×3 (05:18→20:00)
[2023-02-25] MEDS: POTASSIUM CL 10MEQ/50ML IVPB 50 ML IV SCH ×4 (05:18→08:14)
[2023-02-25] MEDS: MULTIVIT W/MINERALS TAB (THERAGRAN M) PO SCH (05:48)
[2023-02-25] MEDS: THIAMINE 100 MG (VITAMIN B-1) TAB PO SCH (05:48)
[2023-02-25] MEDS ORDERED: FUROSEMIDE 40 MG/4 ML INJ (LASIX) IV ONE (07:00)
--- NOTE | 2023-02-25 07:54 | Diagnostic Imaging Report ---
Indication: CHF Frontal chest obtained at 4:56 a.m. and compared to yesterday. Heart is normal in size. Mediastinal silhouette is unremarkable. There is improvement in central vascular congestion and edema compared to the prior study. There is some residual infiltrate in the right medial base. There is no pneumothorax or pleural fluid. Impression: Improvement in central vascular congestion and edema compared to the prior study. There is some residual infiltrate versus atelectasis in the right medial base. Dictated by: Dictated on workstation # [id number]
[2023-02-25] MEDS: ASPIRIN E.C. 81 MG (ECOTRIN) TAB PO SCH (08:15)
[2023-02-25] MEDS: FOLIC ACID 1 MG TAB PO SCH (08:16)
--- NOTE | 2023-02-25 08:25 | Consultation-Cardiology ---
HPI-Cardiology Cardiology Consultation: Date of Consultation 02/25/23 Time Seen by a Provider: 08:10 Date of Admission 02-24-23 Attending Physician Luisana Lopez MD Admitting Physician Admitting Physician: Luisana Lopez MD Attending Physician: Luisana Lopez MD Consulting Physician Lashon Jang MD HPI: Chief Complaint: CHF Mr. Ibanez is a 72 yr old male admitted to ICU 5 from the ED. He reports he has been on a "drinking binge" for the last 3 weeks; drinking 2-3 pints of Vodka per day. He reports he has been eating, but not much. He reports he has had increasing SOB over the last couple weeks. He states yesterday the SOB became unbearable and he had a neighbor bring him to the ED. He denies any CP, palpitations, syncope, near syncope, LE swelling, n/v/d. He reports his SOB is somewhat better today, but still feels unable to lie flat. Review of Systems-Cardiology Review of Systems Constitutional: No chills, No fever, No malaise Eyes: No vision change Ears/Nose/Throat: No epistaxis, No recent hearing loss Respiratory: As described under HPI Cardiovascular: As described under HPI Gastrointestinal: As described under HPI Genitourinary: No dysuria, No hematuria Musculoskeletal: no symptoms reported Skin: No rash on exposed areas, No ulcerations on exposed areas Psychiatric/Neurological: No seizure, No focal weakness, No syncope Hematologic: No bleeding abnormalities WFH-Kuysby-Wivvkq Hx Patient Social History Smoking Status: Never a Smoker 2nd Hand Smoke Exposure: No Have you traveled recently?: No Alcohol Use?: Yes Pt feels they are or have been: No Immunizations Up To Date Tetanus Booster (TDap): Unknown Past Medical History PMH As described under Assessment. Family Medical History Family Medical History: He denies any family h/o CAD or SCD. Family History: Hypertension 19 FATHER Allergies and Home Medications Allergies Coded Allergies: No Known Drug Allergies (Unverified , 11/23/14) Patient Home Medication List Atorvastatin Calcium (Lipitor) 80 Mg Tablet, 80 MG PO DAILY, (Reported) Entered as Reported by: MARGARITA SOUZA on 10/31/18 1103 Last Action: Held Fexofenadine HCl (Fexofenadine HCl) 180 Mg Tablet, 180 MG PO DAILY PRN for ALLERGIES, (Reported) Entered as Reported by: GINNA PARDO on 04/07/221529 Last Action: Held Folic Acid (Folic Acid) 1 Mg Tablet, 1 MG PO DAILY, (Reported) Entered as Reported by: GINNA PARDO on 04/07/221528 Last Action: Held Propranolol HCl (Propranolol HCl) 10 Mg Tablet, 10 MG PO BID, (Reported) Entered as Reported by: MARGARITA SOUZA on 10/31/18 1103 Last Action: Reviewed Thiamine HCl (B-1) 100 Mg Tablet, 100 MG PO DAILY, (Reported) Entered as Reported by: GINNA PARDO on 04/07/221529 Last Action: Reviewed Physical Exam-Cardiology Physical Exam Vital Signs/I&O 02/25/23 02/25/23 02/25/23 02/25/23 21:00 22:00 23:00 23:59 Pulse 72 70 71 Resp 21 19 34 B/P (MAP) 86/66 (73) 100/62 (75) 95/55 (68) Pulse Ox 91 92 96 95 O2 Delivery Room Air Room Air Room Air Room Air 02/26/23 02/26/23 02/26/23 02/26/23 00:00 00:00 01:00 01:05 Temp 36.9 Pulse 67 68 68 Resp 27 24 B/P (MAP) 97/61 (73) 90/67 (75) Pulse Ox 95 91 O2 Delivery Room Air Room Air 02/26/23 02/26/23 02/26/23 02/26/23 02:00 03:00 04:00 04:00 Pulse 63 62 70 Resp 22 22 22 B/P (MAP) 82/57 (65) 92/63 (73) 94/63 (73) Pulse Ox 93 95 95 94 O2 Delivery Room Air Room Air Room Air Room Air 02/26/23 02/26/23 02/26/23 02/26/23 05:00 06:00 07:00 08:00 Temp 36.0 Pulse 61 64 69 Resp 29 30 B/P (MAP) 89/56 (67) 81/57 (65) Pulse Ox 94 92 O2 Delivery Room Air Room Air 02/26/23 00:00 Intake Total 1972 ml Output Total 1550 ml Balance 422 ml Capillary Refill : Less Than 3 Seconds Constitutional: AAO x 3, well-developed, well-nourished HEENT: PERRL, hearing is well preserved, oral hygience is good Neck: No carotid bruit; carotid pulses are 2 + bilaterally Respiratory: No accessory muscle use, No respiratory distress; chest expansion is symmetric, chest is bilaterally symmetric, other (diminished bases with crackles) Cardiovascular: regular rate-rhythm; No JVD; S1 and S2, systolic murmur Gastrointestinal: No tender; soft, audible bowel sounds Extremities: no lower extremity edema bilateral Neurologic/Psychiatric: grossly intact (moves all extremities) Skin: No rash on exposed areas, No ulcerations on exposed areas Data Review Labs Laboratory Tests 02/25/23 11:32: Glucometer 143H 02/25/23 18:00: Glucometer 147H 02/26/23 00:17: Glucometer 184H 02/26/23 03:34: White Blood Count 6.6, Red Blood Count 4.97, Hemoglobin 15.2, Hematocrit 45, Mean Corpuscular Volume 90, Mean Corpuscular Hemoglobin 31, Mean Corpuscular Hemoglobin Concent 34, Red Cell Distribution Width 13.8, Platelet Count 194, Mean Platelet Volume 11.0, Immature Granulocyte % (Auto) 0, Neutrophils (%) (Auto) 62, Lymphocytes (%) (Auto) 25, Monocytes (%) (Auto) 10, Eosinophils (%) (Auto) 2, Basophils (%) (Auto) 1, Neutrophils # (Auto) 4.1, Lymphocytes # (Auto) 1.6, Monocytes # (Auto) 0.7, Eosinophils # (Auto) 0.1, Basophils # (Auto) 0.0, Immature Granulocyte # (Auto) 0.0, Sodium Level 136, Potassium Level 3.9, Chloride Level 101, Carbon Dioxide Level 21, Anion Gap 14, Blood Urea Nitrogen 18, Creatinine 1.20, Estimat Glomerular Filtration Rate 64, BUN/Creatinine Ratio 15, Glucose Level 134H, Calcium Level 9.2, Phosphorus Level 4.8H, Magnesium Level 2.1 Microbiology 02/24/23 MRSA Screen - Final, Complete MRSA not isolated 02/24/23 Urine Culture - Final, Complete NO GROWTH 02/24/23 Blood Culture - Preliminary, Resulted No growth ECG Impression ECG Comment SR with PVC's and PAC's A/P-Cardiology Assessment/Admission Diagnosis Acute systolic CHF - Echocardiiogram of 12-30-[address] Griffin showed LVEF 55-65%; concentric hypertrophy; grade 1 diastolic dysfunction. Mild to mod AoR. PASP 40 mmHg Severe cadiomyopathy Elevated troponin - NSTEMI vs Type 2 MN secondary to acute CHF/severe CM H/O abnormal MPI - MPI of 3-7-[address] Griffin: Pharmacological stress test was negative for ischemia. Normal LV function with no wall motion abnormalities. Possible ischemia in the apex. Elevated TID. Coronary angiography is recommended (pt refused at that time per Dr. Griffin's note) Heavy ETOH abuse - 3 pints Vodka/day HTN Non-compliant with medications/recs/follow up Discussion and Recomendations Acute systolic CHF with severe cardiomyopathy - start HF treatment with Lasix, BB, Entresto, aldactone - titrate doses as indicated/tolerated Elevated troponin - NSTEMI vs Type 2 MN secondary to acute systolic CHF - continue ASA Advise immediate and complete alcohol cessation - likely will need out pt alcohol tx - medical services to manage - monitor for withdrawal - management per medical services Monitor lab closely Replace electrolytes as indicated D/C NTP to allow room for HF medications Further recs will be based on his hospital course We would like to thank medical services for this consult EVAN LOCKETT Feb 25, 2023 08:25
[2023-02-25] MEDS ORDERED: KCL 20 MEQ TAB (K-DUR) PO ONE (08:45)
--- NOTE | 2023-02-25 08:47 | History & Physical ---
History of Present Illness History of Present Illness Reason for visit/HPI Pt is a 72 y/o male who is known to me from clinic and previous hospitalizations. He has known alcoholism with pt unable to sustain cessation of intake. He reportedly had been drinking heavily for the past few months, and called the office last week, was advised to go to the ER to seek help since he was complaining of "having trouble focusing" his eyes. He did not follow instructions, and continued to drink at home to the point that he was persistently drunk. 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 he was admitted to the ICU for CHF, and alcohol detox with hx of DTs. Jet is unable to hold a coherent conversation today in the ICU. Date of Admission Feb 24, 2023 at 21:27 Date Seen by a Provider: Feb 25, 2023 Time Seen by a Provider: 08:20 I consulted on this patient on 02/25/23 08:47 Attending Physician Karli Lopez MD Admitting Physician Admitting Physician: Karli Lopez MD Attending Physician: Karli Lopez MD Consult cardiology, EICU monitoring Allergies and Home Medications Allergies Coded Allergies: No Known Drug Allergies (Unverified , 11/23/14) Patient Home Medication List Home Medication List Reviewed: Yes Atorvastatin Calcium (Lipitor) 80 Mg Tablet, 80 MG PO DAILY, (Reported) Entered as Reported by: MARGARITA SOUZA on 10/31/18 110 Last Action: Held Fexofenadine HCl (Fexofenadine HCl) 180 Mg Tablet, 180 MG PO DAILY PRN for ALLERGIES, (Reported) Entered as Reported by: GINNA PARDO on 04/07/22 153 Last Action: Held Folic Acid (Folic Acid) 1 Mg Tablet, 1 MG PO DAILY, (Reported) Entered as Reported by: GINNA PARDO on 04/07/22 1529 Last Action: Held Propranolol HCl (Propranolol HCl) 10 Mg Tablet, 10 MG PO BID, (Reported) Entered as Reported by: MARGARITA SOUZA on 10/31/18 110 Last Action: Reviewed Thiamine HCl (B-1) 100 Mg Tablet, 100 MG PO DAILY, (Reported) Entered as Reported by: GINNA PARDO on 04/07/22 153 Last Action: Reviewed Past Seodabe-Utrkrx-Sgscae Hx Patient Social History Marrital Status: single Number of Children: 1 Living Status: pt lives alone in a [place] in [facility], has not contact kendra his child Employed/Student: retired ( [employer]) Tobacco Use?: No Smoking Status: Never a Smoker Smokeless Tobacco Frequency: Never a User Use of E-Cig and/or Vaping dev: No Substance use?: No Alcohol Use?: Yes Alcohol type: Hard Liquor Additional alcohol type: 3 PINTS DAILY OF VODKA Alcohol Frequency: Daily Pt feels they are or have been: No Immunizations Up To Date First/Initial COVID19 Vaccinat: 2020 Second COVID19 Vaccination Ander: 2020 Tetanus Booster (TDap): Unknown PED Vaccines UTD: Yes Seasonal Allergies Seasonal Allergies: No Current Status Advance Directives: Yes Advance Directive Location: Home Primary Language: Zimbabwean Preferred Spoken Language: Zimbabwean Implanted or Applied Medical D: CPAP, Other Past Medical History Surgeries: Abdominal, Orthopedic Pneumonia Currently Using CPAP: No Currently Using BIPAP: No High Cholesterol, Hypertension Dementia, Seizure Disorder, TIA Sexually Transmitted Disease: No HIV/AIDS: No Benign Prostatic Hyperpl Abdominal Hernia Arthritis, Fractures Loss of Vision: Left Hearing Impairment: Denies Anxiety (addiction/alcoholism) Blood Disorders: No Adverse Reaction/Blood Tranf: No Family Medical History Reviewed and Corrections made Hypertension 19 FATHER Heart Disease, Hypertension ADMITTED 04/06/2022 FOR ALCOHOL WITHDRAWL SEIZURE PT WITH HISTORY OF [place] AND HAS MULTIPLE OLD BRUISES ALL OVER BODY, BUT NO BRUISES APPEAR ACUTE FROM TODAY PT WAS ADMITTED TO [facility] ON 04/01/22-04/02/22 FOR 1 WEEK HISTORY OF DOUBLE VISION AND POOR BALANCE. WORK UP THERE WAS NEGATIVE FOR ACUTE NEUROLOGICAL PROCESS. PT WAS ACUTELY INTOXICATED ON ARRIVAL THERE. DISMISSAL PAPERWORK IS BROUGHT WITH PATIENT. DID SHOW CHRONIC RIGHT VERTEBRAL ARTERY OCCLUSION, WITH GOOD BILATERAL CAROTID ARTERY FLOW. 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 Review of Systems Constitutional: No chills, No diaphoresis, No fever; malaise EENTM: blurred vision, double vision; No eye pain, No vision loss, No hoarseness, No throat pain Respiratory: No cough; dyspnea on exertion, short of breath Cardiovascular: No chest pain; edema; No palpitations Gastrointestinal: No abdominal pain, No constipation, No diarrhea, No nausea Genitourinary: no symptoms reported Musculoskeletal: muscle weakness Skin: other (sores on heels) Psychiatric/Neurological: Anxiety, Weakness All Other Systems Reviewed Negative Unless Noted: Yes Physical Exam Vital Signs Vital Signs - First Documented 02/24/23 19:13 Temp 36.1 Pulse 89 Resp 24 B/P (MAP) 149/117 (128) Pulse Ox 98 O2 Delivery Room Air Capillary Refill : Less Than 3 Seconds Height, Weight, BMI Height: 6'0.00" Weight: 188lbs. 0.0oz. 85.143048ki; 24.75 BMI Method:Stated General Appearance: WD/WN, Moderate Distress (lying in bed, confused, slightly distressed with shortness of reath) HEENT: PERRL/EOMI Neck: Non Tender, Supple Respiratory: Chest Non Tender, Lungs Clear (poor effort due to confusion), No Accessory Muscle Use, No Respiratory Distress Cardiovascular: Regular Rate, Rhythm, Systolic Murmur Gastrointestinal: Normal Bowel Sounds, Non Tender, Soft Extremity: Normal Capillary Refill, No Calf Tenderness, Pedal Edema (trace at ankles), Other (heel protectors in place on bilateral heels) Neurologic/Psychiatric: Disoriented Skin: Normal Color, Warm/Dry Assessment/Plan Assessment and Plan Acute systolic congestion heart failure due to cardiomyopathy from alcoholism Alcoholism History of alcohol withdrawal seizures Elevated troponin Medication noncompliance Acute systolic congestion heart failure due to cardiomyopathy from alcoholism - consult to Dr. Jang - see hs note for full details - pt on amiodarone IV, EF of 15 - 20%, down significantly from 2019 echo report. - Jet will need close follow up as outpatient due to his heart failure. - his alcoholism is the primary cause of his cardiovascular compromise. Alcoholism with History of alcohol withdrawal seizures - [facility] protocol - close and aggressive monitoring - he was still intoxicated on admission to hospital. Elevated troponin - defer to cardiology - may be due to NSTEMI versus heart failure causing elevated troponin Medication noncompliance - will need close, consistent follow up. He may benefit from inpatient rehab on DC due to his weakness. Last admission we had him set up for NH for SNF - but he left AMA. DVT prophylaxis with scd's and anticoag. GI Prophylaxis with ppi. PT at VERY high right of inhospital due to his hx of DT's and his acutely compromised cardiovascular status Admission Diagnosis Acute systolic congestion heart failure due to cardiomyopathy from alcoholism Alcoholism History of alcohol withdrawal seizures Elevated troponin Medication noncompliance Admission Status: Inpatient Order (span 2 midnights) Reason for Inpatient Admission: inpatient admission for heart cailure, alcohol withdrawal, weakness - will require at least 48-96 hours in the hospital for stailization and possible placement KARLI LOPEZ MD Feb 25, 2023 08:47
[2023-02-25] MEDS ORDERED: FUROSEMIDE 40 MG/4 ML INJ (LASIX) IVP NR (09:00)
[2023-02-25] MEDS ORDERED: AMIODARONE FOR BOLUS 150 MG in NS (IVPB) 100 ML IV NR (09:30)
[2023-02-25] MEDS: AMIODARONE INJECTION 450 MG in NORMAL SALINE 250 ML IV SCH ×2 (09:48→17:32)
[2023-02-25] MEDS: SPIRONOLACTONE 25 MG (ALDACTONE) TAB PO SCH (09:55)
[2023-02-25] MEDS: SACUBITRIL/VALSARTAN 24/26 MG (ENTRESTO) TABLET PO SCH ×2 (09:55→20:00)
[2023-02-25] MEDS: EMPAGLIFLOZIN 10 MG TABLET (JARDIANCE) PO SCH (09:55)
--- NOTE | 2023-02-25 12:01 | Tele-ICU Progress Note ---
Subjective Date Seen by a Provider: Feb 25, 2023 Time Seen by a Provider: 12:00 Subjective/Events-last exam (Tele-ICU Physician , Progress Note ) Service provided via interactive audio and video telecommunications E-CARE system to a patient admitted to ICU bed in [facility]. Patient is seen today due to persistent need of ICU care Available chart/ vitals / labs / Images reviewed Video assessment done using teleICU camera, rest of exam as per RN Discussed with RN Events overnight : Afebrile hemodynamically stable Respiratory - I/O = Drips: Pressors- no Hospital course: (02/24) 72yM Admit w/Alcohol Intox in active alcoholic, ACS chf cardiomyopathy A/P Elevated troponin - NSTEMI vs Type 2 CO secondary to acute CHF/severe CM - as per cards , ASA Acute systolic CHF with severe cardiomyopathy - as per cards - Lasix, BB, Entresto, aldactone- as per cards - stop IVF ETON abuse / "drinking binge" for the last 3 weeks; - CIWA - vitamins Lines : periph , (Central Line Necessity Reviewed) [place]: void OG: Nutrition: Analgesia: Anxiety/ delirium VTE Prophylaxis: pat 40 Stress Ulcer Prophylaxis: na Plans in collaboration with bedside consultants and IM MDs. Discussed with RN to reach out if any questions or concerns Case and care daily discussed on multidisciplinary rounds ( RN, PharmD, Polymerization Kettle Operator , Respiratory Therapy, sawmill production worker ) A total of _10 minutes of critical care time was devoted to this patient today, required to treat and/or prevent further deterioration of critical care condition ( as above ) . I am remotely monitoring this patient from another state. I am unable to do the bedside exam, and history/physical and pertinent information is taken from other notes in the computer and bedside staff. Sepsis Event Evaluation Height, Weight, BMI Height: 6'0.00" Weight: 188lbs. 0.0oz. 85.193506gk; 24.75 BMI Method:Stated Focused Exam Lactate Level 02/24/23 19:25: Lactic Acid Level 1.47 Exam Exam Patient acknowledged, consented, and participated in this virtual visit which was conducted using real time audio/video Vital Signs Date Time Temp Pulse Resp B/P (MAP) Pulse Ox O2 Delivery O2 Flow Rate FiO2 02/25/23 10:00 87 21 104/76 (85) 97 Room Air 02/25/23 09:30 97 93/72 02/25/23 09:00 86 18 99/85 (90) 92 Room Air 02/25/23 08:28 162 02/25/23 08:00 36.5 02/25/23 08:00 75 16 126/94 (105) 98 Room Air 02/25/23 08:00 96 Room Air 02/25/23 07:13 102 02/25/23 07:00 85 24 101/84 (90) 96 Room Air 02/25/23 06:00 100 27 139/60 (86) 96 Room Air 02/25/23 05:00 69 13 106/71 (83) 92 Room Air 02/25/23 05:00 96 Room Air 02/25/23 04:02 36.6 Room Air 02/25/23 04:00 108 21 126/70 (88) 92 Room Air 02/25/23 03:00 79 18 112/77 (89) 94 Room Air 02/25/23 02:00 75 25 109/66 (80) 96 Room Air 02/25/23 01:00 93 Room Air 02/25/23 01:00 73 02/25/23 01:00 71 24 91/66 (74) 92 Room Air 02/25/23 00:00 94 27 113/87 (96) 96 02/25/23 00:00 36.4 Room Air 02/24/23 23:00 104 19 149/95 (113) 95 02/24/23 22:06 112 02/24/23 22:00 95 Room Air 02/24/23 22:00 99 14 179/105 (129) 95 02/24/23 21:45 36.5 Room Air 02/24/23 21:40 88 151/106 02/24/23 19:13 36.1 89 24 149/117 (128) 98 Room Air I & O 02/25/23 07:00 Intake Total 1180 ml Output Total 3050 ml Balance -1870 ml Height & Weight Height: 6'0.00" Weight: 188lbs. 0.0oz. 85.137995cz; 24.75 BMI Method:Stated General Appearance: No Apparent Distress, WD/WN, Other (TALKS NON-STOP AT GREAT LENGTH, DIFFICULT TO KEEP ON SUBJECT, BUT SPEECH IS CLEAR. + ODOR OF ETOH) HEENT: PERRL/EOMI, Other (DRIED FOOD/DRINK AROUND MOUTH AND CHIN AREA. ) Neck: Normal Inspection Respiratory: Chest Non Tender, Normal Breath Sounds, No Accessory Muscle Use, No Respiratory Distress, Other (PT DOES NOT APPEAR DYSPNEIC, TALKS NON-STOP IN FULL SENTENCES, WITHOUT DIFFICULTY. 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
[2023-02-25] MEDS: LORazepam 1 MG (ATIVAN) TAB PO PRN ×2 (12:40→16:41)
--- NOTE | 2023-02-25 13:40 | Consultation-Cardiology ---
HPI-Cardiology Cardiology Consultation: Date of Consultation 02/25/23 Time Seen by a Provider: 09:00 Date of Admission Attending Physician Luisana Lopez MD Admitting Physician Admitting Physician: Luisana Lopez MD Attending Physician: Luisana Lopez MD Consulting Physician ALEX CARROLL MD, MA, FACP, FACC, [facility], [facility] HPI: Chief Complaint: Reason for Card consult: CHF Mr. Ibanez is a 72 yr old male admitted to ICU 5 from the ED. He reports he has been on a "drinking binge" for the last 3 weeks; drinking 2-3 pints of Vodka per day. He reports he has been eating, but not much. He reports he has had increasing SOB over the last couple weeks. He states yesterday the SOB became unbearable and he had a neighbor bring him to the ED. He denies any CP, palpitations, syncope, near syncope, LE swelling, n/v/d. He reports his SOB is somewhat better today, but still feels unable to lie flat. Review of Systems-Cardiology Review of Systems Constitutional: No chills, No fever, No malaise Eyes: No vision change Ears/Nose/Throat: No epistaxis, No recent hearing loss Respiratory: As described under HPI Cardiovascular: As described under HPI Gastrointestinal: As described under HPI Genitourinary: No dysuria, No hematuria Musculoskeletal: no symptoms reported Skin: No rash on exposed areas, No ulcerations on exposed areas Psychiatric/Neurological: No seizure, No focal weakness, No syncope Hematologic: No bleeding abnormalities APS-Ercwne-Yryaeh Hx Patient Social History Smoking Status: Never a Smoker 2nd Hand Smoke Exposure: No Have you traveled recently?: No Alcohol Use?: Yes Pt feels they are or have been: No Immunizations Up To Date Tetanus Booster (TDap): Unknown Past Medical History PMH As described under Assessment. Family Medical History Family Medical History: He denies any family h/o CAD or SCD. Family History: Hypertension 19 FATHER Allergies and Home Medications Allergies Coded Allergies: No Known Drug Allergies (Unverified , 11/23/14) Patient Home Medication List Home Medication List Reviewed: Yes Atorvastatin Calcium (Lipitor) 80 Mg Tablet, 80 MG PO DAILY, (Reported) Entered as Reported by: MARGARITA SOUZA on 10/31/18 1103 Fexofenadine HCl (Fexofenadine HCl) 180 Mg Tablet, 180 MG PO DAILY PRN for ALLERGIES, (Reported) Entered as Reported by: GINNA PARDO on 04/07/22 1530 Folic Acid (Folic Acid) 1 Mg Tablet, 1 MG PO DAILY, (Reported) Entered as Reported by: GINNA PARDO on 04/07/22 1529 Propranolol HCl (Propranolol HCl) 10 Mg Tablet, 10 MG PO BID, (Reported) Entered as Reported by: MARGARITA SOUZA on 10/31/18 1103 Thiamine HCl (B-1) 100 Mg Tablet, 100 MG PO DAILY, (Reported) Entered as Reported by: GINNA PARDO on 04/07/22 1530 Physical Exam-Cardiology Physical Exam Vital Signs/I&O 02/25/23 02/25/23 02/25/23 02/25/23 02:00 03:00 04:00 04:02 Temp 36.6 Pulse 75 79 108 Resp 25 18 21 B/P (MAP) 109/66 (80) 112/77 (89) 126/70 (88) Pulse Ox 96 94 92 O2 Delivery Room Air Room Air Room Air Room Air 02/25/23 02/25/23 02/25/23 02/25/23 05:00 05:00 06:00 07:00 Pulse 69 100 85 Resp 13 27 24 B/P (MAP) 106/71 (83) 139/60 (86) 101/84 (90) Pulse Ox 96 92 96 96 O2 Delivery Room Air Room Air Room Air Room Air 02/25/23 02/25/23 02/25/23 02/25/23 07:13 08:00 08:00 08:00 Temp 36.5 Pulse 102 75 Resp 16 B/P (MAP) 126/94 (105) Pulse Ox 96 98 O2 Delivery Room Air Room Air 02/25/23 02/25/23 02/25/23 02/25/23 08:28 09:00 09:30 10:00 Pulse 162 86 97 87 Resp 18 21 B/P (MAP) 99/85 (90) 93/72 104/76 (85) Pulse Ox 92 97 O2 Delivery Room Air Room Air 02/25/23 02/25/23 02/25/23 02/25/23 11:00 12:00 12:00 12:04 Pulse 89 93 82 Resp 22 20 B/P (MAP) 105/81 (89) 85/70 (75) Pulse Ox 94 96 96 O2 Delivery Room Air Room Air Room Air 02/25/23 00:00 Intake Total 1000 ml Output Total 900 ml Balance 100 ml Capillary Refill : Less Than 3 Seconds Constitutional: AAO x 3, well-developed, well-nourished HEENT: PERRL, hearing is well preserved, oral hygience is good Neck: No carotid bruit; carotid pulses are 2 + bilaterally Respiratory: No accessory muscle use, No respiratory distress; chest expansion is symmetric, chest is bilaterally symmetric, other (diminished bases with crackles) Cardiovascular: regular rate-rhythm; No JVD; S1 and S2, systolic murmur Gastrointestinal: No tender; soft, audible bowel sounds Extremities: no lower extremity edema bilateral Neurologic/Psychiatric: oriented x 3, other (moves all limbs) Skin: No rash on exposed areas, No ulcerations on exposed areas Data Review Labs Laboratory Tests 02/24/23 19:25: White Blood Count 5.8, Red Blood Count 4.83, Hemoglobin 14.9, Hematocrit 44, Mean Corpuscular Volume 92, Mean Corpuscular Hemoglobin 31, Mean Corpuscular Hemoglobin Concent 34, Red Cell Distribution Width 14.1, Platelet Count 233, Mean Platelet Volume 10.3, Immature Granulocyte % (Auto) 0, Neutrophils (%) (Auto) 54, Lymphocytes (%) (Auto) 35, Monocytes (%) (Auto) 8, Eosinophils (%) (Auto) 2, Basophils (%) (Auto) 1, Neutrophils # (Auto) 3.1, Lymphocytes # (Auto) 2.1, Monocytes # (Auto) 0.5, Eosinophils # (Auto) 0.1, Basophils # (Auto) 0.0, Immature Granulocyte # (Auto) 0.0, Erythrocyte Sedimentation Rate 11, Prothrombin Time 12.0L, INR Comment 0.8, Activated Partial Thromboplast Time 31, D-Dimer 2.31H, Sodium Level 142, Potassium Level 4.7, Chloride Level 105, Carbon Dioxide Level 22, Anion Gap 15H, Blood Urea Nitrogen 13, Creatinine 1.02, Estimat Glomerular Filtration Rate 78, BUN/Creatinine Ratio 13, Glucose Level 153H, Lactic Acid Level 1.47, Calcium Level 9.5, Corrected Calcium 9.3, Magnesium Level 2.1, Total Bilirubin 0.5, Aspartate Amino Transf (AST/SGOT) 37H, Alanine Aminotransferase (ALT/SGPT) 27, Alkaline Phosphatase 81, Total Creatine Kinase 103, Creatine Kinase MB 8.3*H, Myoglobin 52.0, Troponin I 0.168H, C- Reactive Protein High Sensitivity 0.49, B-Type Natriuretic Peptide 755.8H, Total Protein 8.1, Albumin 4.2, Amylase Level 34, Lipase 33, Serum Alcohol 99H 02/24/23 19:28: Influenza Type A (RT-PCR) Not Detected, Influenza Type B (RT-PCR) Not Detected, SARS-CoV-2 RNA (RT-PCR) Not Detected 02/24/23 20:55: Urine Color YELLOW, Urine Clarity SL CLOUDY, Urine pH 7.0, Urine Specific [place] 1.015L, Urine Protein NEGATIVE, Urine Glucose (UA) NEGATIVE, Urine K etones NEGATIVE, Urine Nitrite NEGATIVE, Urine Bilirubin NEGATIVE, Urine Urobilinogen 0.2, Urine Leukocyte Esterase NEGATIVE, Urine RBC (Auto) NEGATIVE, Urine RBC NONE, Urine WBC NONE, Urine Squamous Epithelial Cells RARE, Urine Crystals NONE, Urine Bacteria NEGATIVE, Urine Casts NONE, Urine Mucus NEGATIVE, Urine Culture Indicated CULTURE PENDING, Urine Opiates Screen NEGATIVE, Urine Oxycodone Screen NEGATIVE, Urine Methadone Screen NEGATIVE, Urine Propoxyphene Screen NEGATIVE, Urine Barbiturates Screen NEGATIVE, Ur Tricyclic Antidepressants Screen NEGATIVE, Urine Phencyclidine Screen NEGATIVE, Urine Amphetamines Screen NEGATIVE, Urine Methamphetamines Screen NEGATIVE, Urine Benzodiazepines Screen NEGATIVE, Urine Cocaine Screen NEGATIVE, Urine Cannabinoids Screen NEGATIVE 02/24/23 22:02: Prothrombin Time 13.6, INR Comment 1.0, Activated Partial Thromboplast Time 34 02/25/23 02:03: White Blood Count 5.8, Red Blood Count 4.63, Hemoglobin 14.3, Hematocrit 42, Mean Corpuscular Volume 91, Mean Corpuscular Hemoglobin 31, Mean Corpuscular Hemoglobin Concent 34, Red Cell Distribution Width 13.9, Platelet Count 177, Mean Platelet Volume 10.2, Immature Granulocyte % (Auto) 0, Neutrophils (%) (Auto) 67, Lymphocytes (%) (Auto) 20, Monocytes (%) (Auto) 11, Eosinophils (%) (Auto) 1, Basophils (%) (Auto) 0, Neutrophils # (Auto) 3.9, Lymphocytes # (Auto) 1.2, Monocytes # (Auto) 0.7, Eosinophils # (Auto) 0.1, Basophils # (Auto) 0.0, Immature Granulocyte # (Auto) 0.0, Sodium Level 141, Potassium Level 3.6, Chloride Level 103, Carbon Dioxide Level 24, Anion Gap 14, Blood Urea Nitrogen 11, Creatinine 0.82, Estimat Glomerular Filtration Rate 93, BUN/Creatinine Ratio 13, Glucose Level 141H, Calcium Level 9.3, Phosphorus Level 3.5, Magnesium Level 1.8, Troponin I 0.166H 02/25/23 03:49: Prothrombin Time 14.2, INR Comment 1.1 02/25/23 11:32: Glucometer 143H Microbiology 02/24/23 Urine Culture - Preliminary, Resulted Culture In Progress Laboratory Tests 02/24/23 19:25 02/25/23 02:03 A/P-Cardiology Assessment/Admission Diagnosis Acute systolic CHF - Echocardiiogram of 12-30-[address] Griffin showed LVEF 55-65%; concentric hypertrophy; grade 1 diastolic dysfunction. Mild to mod AoR. PASP 40 mmHg Frequent ventricular ectopy Severe cadiomyopathy - Echo of 02-25-23: The cavity size is normal. Wall thickness is normal. Systolic function is severely reduced. The estimated ejection fraction is 15-20%. Severe diffuse hypokinesis. Features are consistent with a pseudonormal left ventricular filling pattern, with concomitant abnormal relaxation and increased filling pressure (grade 2 diastolic dysfunction). Aortic valve: There is trivial regurgitation. Pulmonary arteries: Systolic pressure is in the range of 30 mm Hg to 35 mm Hg. Elevated troponin - NSTEMI vs Type 2 [place] secondary to acute CHF/severe CM H/O abnormal MPI - MPI of 01-05-[address] Griffin: Pharmacological stress test was negative for ischemia. Normal LV function with no wall motion abnormalities. Possible ischemia in the apex. Elevated TID. Coronary angiography is recommended (pt refused at that time per Dr. Griffin's note) Heavy ETOH abuse - 3 pints Vodka/day HTN Non-compliant with medications/recs/follow up Discussion and Recomendations Acute systolic CHF with severe cardiomyopathy - start HF treatment with Lasix, BB, Entresto, aldactone - titrate doses as indicated/tolerated Elevated troponin - Type 2 [place] secondary to acute systolic CHF - continue ASA Advise immediate and complete alcohol cessation - likely will need out pt alcohol tx - medical services to manage - monitor for withdrawal - management per medical services iv amiodarone to treat frequent ventricular ectopy in the setting of marked cardiomyopathy (placing him at risk of malignant ventricular arrhythmia) Monitor lab closely Replace electrolytes as indicated D/C NTP to allow room for HF medications Further recs will be based on his hospital course We would like to thank Medical services for this consult ALEX CARROLL MD FACP FAC CCDS Feb 25, 2023 13:40
[2023-02-25] MEDS: FUROSEMIDE 40 MG/4 ML INJ (LASIX) IVP SCH (16:33)
[2023-02-25] MEDS: ENOXAPARIN 40 MG/0.4 ML (LOVENOX) SYR SQ SCH (20:00)
[2023-02-26] MEDS: LORazepam INJ 2 MG/ML (ATIVAN) VIAL IV PRN ×10 (01:07→20:56)
[2023-02-26 04:29] LABS: BASOPHILS % (AUTO) 1 % (0-10); EOSINOPHILS # (AUTO) 0.1 10^3/uL (0.0-0.3); EOSINOPHILS % (AUTO) 2 % (0-10); HEMATOCRIT 45 % (40-54); HEMOGLOBIN 15.2 g/dL (13.3-17.7); LYMPHOCYTES # (AUTO) 1.6 10^3/uL (1.0-4.0); LYMPHOCYTES % (AUTO) 25 % (12-44); MEAN CORPUSCULAR HEMOGLOBIN 31 pg (25-34); MEAN CORPUSCULAR HGB CONC 34 g/dL (32-36); MEAN CORPUSCULAR VOLUME 90 fL (80-99); MONOCYTES # (AUTO) 0.7 10^3/uL (0.0-1.0); MONOCYTES % (AUTO) 10 % (0-12); NEUTROPHILS # (AUTO) 4.1 10^3/uL (1.8-7.8); NEUTROPHILS % (AUTO) 62 % (42-75); PLATELET COUNT 194 10^3/uL (130-400); WHITE BLOOD COUNT 6.6 10^3/uL (4.3-11.0)
[2023-02-26 04:47] LABS: CALCIUM 9.2 MG/DL (8.5-10.1); CREATININE SERUM 1.2 MG/DL (0.60-1.30); MAGNESIUM 2.1 MG/DL (1.6-2.4); PHOSPHORUS 4.8 MG/DL (2.3-4.7); POTASSIUM 3.9 MMOL/L (3.6-5.0)
[2023-02-26] MEDS: MAGNESIUM 1 GM/100 ML IVPB 100 ML IV SCH (06:00)
[2023-02-26] MEDS: POTASSIUM CL 10MEQ/50ML IVPB 50 ML IV SCH (06:00)
[2023-02-26] MEDS: KCL 20 MEQ TAB (K-DUR) PO SCH ×3 (06:00→20:56)
[2023-02-26] MEDS: FUROSEMIDE 40 MG/4 ML INJ (LASIX) IVP SCH ×2 (06:12→17:41)
[2023-02-26] MEDS: THIAMINE 100 MG (VITAMIN B-1) TAB PO SCH (06:12)
[2023-02-26] MEDS: LORazepam 1 MG (ATIVAN) TAB PO PRN ×2 (06:12→11:13)
[2023-02-26] MEDS: MULTIVIT W/MINERALS TAB (THERAGRAN M) PO SCH (06:12)
[2023-02-26] MEDS ORDERED: POTASSIUM BICARB 20 MEQ (EFFER-K) TABLET PO ONE (06:15)
--- NOTE | 2023-02-26 08:27 | Progress Note - Cardiology ---
Cardiology SOAP Progress Note Subjective: Sitting up in bed Oriented to self only Co-operative Does not answer questions, only states "he is upstairs in the 3rd floor bedroom of his childhood home" Objective: I&O/Vital Signs 02/26/23 02/26/23 02/26/23 02/26/23 02:00 03:00 04:00 04:00 Pulse 63 62 70 Resp 22 22 22 B/P (MAP) 82/57 (65) 92/63 (73) 94/63 (73) Pulse Ox 93 95 95 94 O2 Delivery Room Air Room Air Room Air Room Air 02/26/23 02/26/23 02/26/23 02/26/23 05:00 06:00 07:00 07:00 Pulse 61 64 67 69 Resp 29 30 B/P (MAP) 89/56 (67) 81/57 (65) 93/63 (70) Pulse Ox 94 92 94 O2 Delivery Room Air Room Air Room Air 02/26/23 02/26/23 02/26/23 02/26/23 08:00 08:00 08:00 09:00 Temp 36.0 Pulse 66 64 Resp 25 21 B/P (MAP) 99/70 (77) 96/57 (66) Pulse Ox 95 95 99 O2 Delivery Room Air Room Air Room Air 02/26/23 02/26/23 02/26/23 02/26/23 10:00 11:00 11:53 12:00 Temp 35.7 Pulse 74 68 73 Resp 18 14 11 B/P (MAP) 106/69 (82) 91/68 (75) Pulse Ox 100 100 100 O2 Delivery Room Air Room Air Room Air 02/26/23 02/26/23 02/26/23 12:13 13:00 13:00 Pulse 71 70 Resp 15 B/P (MAP) 94/65 (72) Pulse Ox 99 100 O2 Delivery Room Air Room Air 02/26/23 00:00 Intake Total 1972 ml Output Total 1550 ml Balance 422 ml Weight (Pounds): 188 Weight (Ounces): 0.0 Weight (Calculated Kilograms): [id number] Constitutional: No AAO x 3 (Oriented to self only); well-developed, well- nourished Respiratory: No accessory muscle use, No respiratory distress; chest expansion is symmetric, chest is bilaterally symmetric, other (diminished bases with crackles) Cardiovascular: regular rate-rhythm; No JVD; S1 and S2, systolic murmur Gastrointestional: No tender; soft, audible bowel sounds Extremities: no lower extremity edema bilateral Neurologic/Psychiatric: oriented x 3, other (moves all limbs) Skin: No rash on exposed areas, No ulcerations on exposed areas Results/Procedures: Labs Laboratory Tests 02/25/23 18:00: Glucometer 147H 02/26/23 00:17: Glucometer 184H 02/26/23 03:34: White Blood Count 6.6, Red Blood Count 4.97, Hemoglobin 15.2, Hematocrit 45, Mean Corpuscular Volume 90, Mean Corpuscular Hemoglobin 31, Mean Corpuscular Hemoglobin Concent 34, Red Cell Distribution Width 13.8, Platelet Count 194, Mean Platelet Volume 11.0, Immature Granulocyte % (Auto) 0, Neutrophils (%) (Auto) 62, Lymphocytes (%) (Auto) 25, Monocytes (%) (Auto) 10, Eosinophils (%) (Auto) 2, Basophils (%) (Auto) 1, Neutrophils # (Auto) 4.1, Lymphocytes # (Auto) 1.6, Monocytes # (Auto) 0.7, Eosinophils # (Auto) 0.1, Basophils # (Auto) 0.0, Immature Granulocyte # (Auto) 0.0, Sodium Level 136, Potassium Level 3.9, Chloride Level 101, Carbon Dioxide Level 21, Anion Gap 14, Blood Urea Nitrogen 18, Creatinine 1.20, Estimat Glomerular Filtration Rate 64, BUN/Creatinine Ratio 15, Glucose Level 134H, Calcium Level 9.2, Phosphorus Level 4.8H, Magnesium Level 2.1 02/26/23 11:38: Glucometer 124H Microbiology 02/24/23 MRSA Screen - Final, Complete MRSA not isolated 02/24/23 Urine Culture - Final, Complete NO GROWTH 02/24/23 Blood Culture - Preliminary, Resulted No growth A/P: Assessment: Confusion - management per medical services Acute systolic CHF - Echocardiiogram of 12-30-[address] Griffin showed LVEF 55-65%; concentric hypertrophy; grade 1 diastolic dysfunction. Mild to mod AoR. PASP 40 mmHg Frequent ventricular ectopy Severe cadiomyopathy - Echo of 02-25-23: The cavity size is normal. Wall thickness is normal. Systolic function is severely reduced. The estimated ejection fraction is 15-20%. Severe diffuse hypokinesis. Features are consistent with a pseudonormal left ventricular filling pattern, with concomitant abnormal relaxation and increased filling pressure (grade 2 diastolic dysfunction). Aortic valve: There is trivial regurgitation. Pulmonary arteries: Systolic pressure is in the range of 30 mm Hg to 35 mm Hg. Elevated troponin - NSTEMI vs Type 2 [place] secondary to acute CHF/severe CM H/O abnormal MPI - MPI of 3-7-[address] Griffin: Pharmacological stress test was negative for ischemia. Normal LV function with no wall motion abnormalities. Possible ischemia in the apex. Elevated TID. Coronary angiography is recommended (pt r efused at that time per Dr. Griffin's note) Heavy ETOH abuse - 3 pints Vodka/day HTN Non-compliant with medications/recs/follow up Plan: Acute systolic CHF with severe cardiomyopathy - start HF treatment with Lasix, BB, Entresto, aldactone - titrate doses as indicated/tolerated Elevated troponin - Type 2 [place] secondary to acute systolic CHF - continue ASA Advise immediate and complete alcohol cessation - monitor for withdrawal - management per medical services iv amiodarone to treat frequent ventricular ectopy in the setting of marked cardiomyopathy (placing him at risk of malignant ventricular arrhythmia) - when IV load completed, change to oral Monitor lab closely Replace electrolytes as indicated Confusion - management per medical services EVAN LOCKETT Feb 26, 2023 08:27
[2023-02-26] MEDS: FOLIC ACID 1 MG TAB PO SCH (08:31)
[2023-02-26] MEDS: PANTOPRAZOLE 40 MG (PROTONIX) VIAL IV SCH (08:31)
[2023-02-26] MEDS: EMPAGLIFLOZIN 10 MG TABLET (JARDIANCE) PO SCH (08:32)
[2023-02-26] MEDS: SACUBITRIL/VALSARTAN 24/26 MG (ENTRESTO) TABLET PO SCH ×2 (08:32→20:56)
[2023-02-26] MEDS: ASPIRIN E.C. 81 MG (ECOTRIN) TAB PO SCH (08:32)
[2023-02-26] MEDS: SPIRONOLACTONE 25 MG (ALDACTONE) TAB PO SCH (08:32)
--- NOTE | 2023-02-26 08:39 | Progress Note ---
Subjective Subjective Date Seen by Provider: Feb 27, 2023 Time Seen by Provider: 08:30 Pt reports that he is tired, but is hard to awaken. He does not remember why he is in the hospital. Staff reports that he is on precedex due to aggressive behavior with staff last night. Review of Systems General: No Chills; Fatigue, Malaise Pulmonary: No Dyspnea, No Cough Cardiovascular: No: Chest Pain, Palpitations Gastrointestinal: No: Nausea, Abdominal Pain Neurological: Weakness, Confusion All Other Systems Reviewed All Other Systems Reviewed: Yes Objective Exam Vital Signs Vital Signs Date Time Temp Pulse Resp B/P (MAP) Pulse Ox O2 Delivery O2 Flow Rate FiO2 02/26/23 08:00 66 25 99/70 (77) 95 Room Air 02/26/23 08:00 36.0 02/26/23 07:00 69 02/26/23 07:00 67 93/63 (70) 94 Room Air 02/26/23 06:00 64 30 81/57 (65) 92 Room Air 02/26/23 05:00 61 29 89/56 (67) 94 Room Air 02/26/23 04:00 94 Room Air 02/26/23 04:00 70 22 94/63 (73) 95 Room Air 02/26/23 03:00 62 22 92/63 (73) 95 Room Air 02/26/23 02:00 63 22 82/57 (65) 93 Room Air 02/26/23 01:05 68 02/26/23 01:00 68 24 90/67 (75) 91 Room Air 02/26/23 00:00 36.9 02/26/23 00:00 67 27 97/61 (73) 95 Room Air 02/25/23 23:59 95 Room Air 02/25/23 23:00 71 34 95/55 (68) 96 Room Air 02/25/23 22:00 70 19 100/62 (75) 92 Room Air 02/25/23 21:00 72 21 86/66 (73) 91 Room Air 02/25/23 20:00 36.7 02/25/23 20:00 95 Room Air 02/25/23 20:00 76 20 95/88 (90) 95 Room Air 02/25/23 19:09 71 02/25/23 19:00 68 22 94/71 (79) 94 Room Air 02/25/23 18:15 71 17 83/62 (69) 95 Room Air 02/25/23 18:00 72 15 73/52 (59) 95 Room Air 02/25/23 17:00 80 30 107/75 (86) 97 Room Air 02/25/23 16:00 65 24 109/75 (86) 96 Room Air 02/25/23 16:00 36.0 02/25/23 16:00 96 Room Air 02/25/23 15:00 73 24 91/63 (72) 92 Room Air 02/25/23 14:00 86 30 111/83 (92) 97 Room Air 02/25/23 13:00 79 10 92/68 (76) 97 Room Air 02/25/23 12:04 82 02/25/23 12:00 93 20 85/70 (75) 96 Room Air 02/25/23 12:00 36.1 02/25/23 12:00 96 Room Air 02/25/23 11:00 89 22 105/81 (89) 94 Room Air 02/25/23 10:00 87 21 104/76 (85) 97 Room Air 02/25/23 09:30 97 93/72 02/25/23 09:00 86 18 99/85 (90) 92 Room Air I & O 02/26/23 07:00 Intake Total 2952 ml Output Total 3550 ml Balance -598 ml General Appearance: WD/WN, Mild Distress (pt groggy, not very responsive - pt on precedex due to aggressive behavior with staff overnight) HEENT: PERRL/EOMI Neck: Non Tender, Supple Respiratory: Chest Non Tender, Lungs Clear (poor effort due to confusion), No A ccessory Muscle Use, No Respiratory Distress Cardiovascular: Regular Rate, Rhythm, Systolic Murmur Gastrointestinal: Normal Bowel Sounds, Non Tender, Soft Back: No CVA Tenderness Extremity: Normal Capillary Refill, No Calf Tenderness, Pedal Edema (trace at ankles), Other (heel protectors in place on bilateral heels) Neurologic/Psychiatric: Disoriented Skin: Normal Color, Warm/Dry Results Lab Laboratory Tests 02/25/23 11:32: Glucometer 143H 02/25/23 18:00: Glucometer 147H 02/26/23 00:17: Glucometer 184H 02/26/23 03:34: White Blood Count 6.6, Red Blood Count 4.97, Hemoglobin 15.2, Hematocrit 45, Mean Corpuscular Volume 90, Mean Corpuscular Hemoglobin 31, Mean Corpuscular Hemoglobin Concent 34, Red Cell Distribution Width 13.8, Platelet Count 194, Mean Platelet Volume 11.0, Immature Granulocyte % (Auto) 0, Neutrophils (%) (Auto) 62, Lymphocytes (%) (Auto) 25, Monocytes (%) (Auto) 10, Eosinophils (%) (Auto) 2, Basophils (%) (Auto) 1, Neutrophils # (Auto) 4.1, Lymphocytes # (Auto) 1.6, Monocytes # (Auto) 0.7, Eosinophils # (Auto) 0.1, Basophils # (Auto) 0.0, Immature Granulocyte # (Auto) 0.0, Sodium Level 136, Potassium Level 3.9, Chloride Level 101, Carbon Dioxide Level 21, Anion Gap 14, Blood Urea Nitrogen 18, Creatinine 1.20, Estimat Glomerular Filtration Rate 64, BUN/Creatinine Ratio 15, Glucose Level 134H, Calcium Level 9.2, Phosphorus Level 4.8H, Magnesium Level 2.1 Microbiology 02/24/23 MRSA Screen - Final, Complete MRSA not isolated 02/24/23 Urine Culture - Final, Complete NO GROWTH 02/24/23 Blood Culture - Preliminary, Resulted No growth Assessment/Plan Assessment/Plan Admission Dx Acute systolic congestion heart failure due to cardiomyopathy from alcoholism Alcoholism History of alcohol withdrawal seizures Elevated troponin Medication noncompliance Assessment and Plan Acute systolic congestion heart failure due to cardiomyopathy from alcoholism Alcoholism History of alcohol withdrawal seizures Elevated troponin Medication noncompliance Acute systolic congestion heart failure due to cardiomyopathy from alcoholism - consult to Dr. Jang - see hs note for full details - pt on amiodarone IV, EF of 15 - 20%, down significantly from 2019 echo report. - Jet will need close follow up as outpatient due to his heart failure. - his alcoholism is the primary cause of his cardiovascular compromise. Alcoholism with History of alcohol withdrawal seizures - [facility] protocol - close and aggressive monitoring - he was still intoxicated on admission to hospital. Elevated troponin - defer to cardiology - may be due to NSTEMI versus heart failure causing elevated troponin Medication noncompliance - will need close, consistent follow up. He may benefit from inpatient rehab on DC due to his weakness. Last admission we had him set up for NH for SNF - but he left AMA. DVT prophylaxis with scd's and anticoag. GI Prophylaxis with ppi. PT at VERY high right of in-hospital due to his hx of DT's and his acutely compromised cardiovascular status Admission Dx Acute systolic congestion heart failure due to cardiomyopathy from alcoholism Alcoholism History of alcohol withdrawal seizures Elevated troponin Medication noncompliance Clinical Quality Measures Admission Status Admission Dx Acute systolic congestion heart failure due to cardiomyopathy from alcoholism Alcoholism History of alcohol withdrawal seizures Elevated troponin Medication noncompliance KARLI ANTUNEZ MD Feb 26, 2023 08:39
--- NOTE | 2023-02-26 09:44 | Tele-ICU Progress Note ---
Subjective Date Seen by a Provider: Feb 26, 2023 Time Seen by a Provider: 09:41 Subjective/Events-last exam (Tele-ICU Physician , Progress Note ) Service provided via interactive audio and video telecommunications E-CARE system to a patient admitted to ICU bed in [facility]. Patient is seen today due to persistent need of ICU care Available chart/ vitals / labs / Images reviewed Video assessment done using teleICU camera, rest of exam as per RN Discussed with RN Events overnight : Afebrile hemodynamically stable Respiratory - I/O = Drips: Pressors- no Hospital course: (02/24) 72yM Admit w/Alcohol Intox in active alcoholic, ACS chf cardiomyopathy 02/25/23- ECHO EF - 15-20% A/P Elevated troponin - NSTEMI vs Type 2 [place] secondary to acute CHF/severe CM - as per cards , ASA Acute systolic CHF with severe cardiomyopathy -ECHO EF - 15-20% - as per cards - Lasix, BB, Entresto, aldactone- as per cards - stop IVF frequent ventricular ectopy - on amio IV as per cards ETON abuse / "drinking binge" for the last 3 weeks; - CIWA - getting ativan - vitamins Lines : periph , (Central Line Necessity Reviewed) [place]: void OG: Nutrition: po Analgesia: Anxiety/ delirium VTE Prophylaxis: pat 40 Stress Ulcer Prophylaxis: na Plans in collaboration with bedside consultants and IM MDs. Discussed with RN to reach out if any questions or concerns Case and care daily discussed on multidisciplinary rounds ( RN, PharmD, Wash Plant Operator , Respiratory Therapy, slate worker ) A total of _10 minutes of critical care time was devoted to this patient today, required to treat and/or prevent further deterioration of critical care condition ( as above ) . I am remotely monitoring this patient from another state. I am unable to do the bedside exam, and history/physical and pertinent information is taken from other notes in the computer and bedside staff. Sepsis Event Evaluation Height, Weight, BMI Height: 6'0.00" Weight: 188lbs. 0.0oz. 85.382602go; 24.69 BMI Method:Stated Focused Exam Lactate Level 02/24/23 19:25: Lactic Acid Level 1.47 Exam Exam Patient acknowledged, consented, and participated in this virtual visit which was conducted using real time audio/video Vital Signs Date Time Temp Pulse Resp B/P (MAP) Pulse Ox O2 Delivery O2 Flow Rate FiO2 02/26/23 09:00 64 21 96/57 (66) 99 Room Air 02/26/23 08:00 66 25 99/70 (77) 95 Room Air 02/26/23 08:00 36.0 02/26/23 07:00 69 02/26/23 07:00 67 93/63 (70) 94 Room Air 02/26/23 06:00 64 30 81/57 (65) 92 Room Air 02/26/23 05:00 61 29 89/56 (67) 94 Room Air 02/26/23 04:00 94 Room Air 02/26/23 04:00 70 22 94/63 (73) 95 Room Air 02/26/23 03:00 62 22 92/63 (73) 95 Room Air 02/26/23 02:00 63 22 82/57 (65) 93 Room Air 02/26/23 01:05 68 02/26/23 01:00 68 24 90/67 (75) 91 Room Air 02/26/23 00:00 36.9 02/26/23 00:00 67 27 97/61 (73) 95 Room Air 02/25/23 23:59 95 Room Air 02/25/23 23:00 71 34 95/55 (68) 96 Room Air 02/25/23 22:00 70 19 100/62 (75) 92 Room Air 02/25/23 21:00 72 21 86/66 (73) 91 Room Air 02/25/23 20:00 36.7 02/25/23 20:00 95 Room Air 02/25/23 20:00 76 20 95/88 (90) 95 Room Air 02/25/23 19:09 71 02/25/23 19:00 68 22 94/71 (79) 94 Room Air 02/25/23 18:15 71 17 83/62 (69) 95 Room Air 02/25/23 18:00 72 15 73/52 (59) 95 Room Air 02/25/23 17:00 80 30 107/75 (86) 97 Room Air 02/25/23 16:00 65 24 109/75 (86) 96 Room Air 02/25/23 16:00 36.0 02/25/23 16:00 96 Room Air 02/25/23 15:00 73 24 91/63 (72) 92 Room Air 02/25/23 14:00 86 30 111/83 (92) 97 Room Air 02/25/23 13:00 79 10 92/68 (76) 97 Room Air 02/25/23 12:04 82 02/25/23 12:00 93 20 85/70 (75) 96 Room Air 02/25/23 12:00 36.1 02/25/23 12:00 96 Room Air 02/25/23 11:00 89 22 105/81 (89) 94 Room Air 02/25/23 10:00 87 21 104/76 (85) 97 Room Air I & O 02/26/23 07:00 Intake Total 2952 ml Output Total 3550 ml Balance -598 ml Height & Weight Height: 6'0.00" Weight: 188lbs. 0.0oz. 85.711007cv; 24.69 BMI Method:Stated General Appearance: WD/WN, Moderate Distress (lying in bed, confused, slightly distressed with shortness of reath) HEENT: PERRL/EOMI Neck: Non Tender, Supple Respiratory: Chest Non Tender, Lungs Clear (poor effort due to confusion), No Accessory Muscle Use, No Respiratory Distress Cardiovascular: Regular Rate, Rhythm, Systolic Murmur Capillary Refill: Less Than 3 Seconds Extremity: Normal Capillary Refill, No Calf Tenderness, Pedal Edema (trace at ankles), Other (heel protectors in place on bilateral heels) Neurologic/Psychiatric: Disoriented Skin: Normal Color, Warm/Dry Results Lab Laboratory Tests 02/24/23 19:25 02/25/23 02:03 02/26/23 03:34 Assessment/Plan Assessment/Plan 1 TAMEKA GALLAGHER MD Feb 26, 2023 09:44
--- NOTE | 2023-02-26 09:56 | Wound Care Assessment ---
Wound Care Assessment Date Seen by Provider: Feb 26, 2023 Time Seen by Provider: 09:51 Chief Complaint Bilateral heel ulcers HPI I last saw Callum on 01-05-23 in my office as a new outpatient. The ulcers he has currently predate that visit by approximately 30 days. He noted an injury to kathryn th heels following an impact from jumping off a deck. He was sober at that time. We did arterial evaluation which was abnormal bilaterally and referred to cardiology. Following that visit Callum failed to return for further care. He did answer the phone once as we attempted to reach him and appeared confused (likely due to resuming ETOH use). He was admitted to the hospital this week due to intoxication with resulting alcoholic cardiomyopathy. He is currently sedated due to h/o DT's and CIWA protocol. He is asleep throughout my exam and unable to offer further history. I suspect his ulcers are pressure and arterial in nature. However, they are both smaller in size than in past, without signs of obvious infection and with stable eschar. His current lifestyle is not amenable to wound healing. We will order dressings for him while he remains in the hospital. Past Medical History: Admits Heart Disease ETOH abuse with h/o DT's/seizures, hypotension, CHF (alcoholic) Smoking Status: Never a Smoker Recreational Drug Use: No Alcohol Use: Regular Use (2-3 pints vodka daily) Review of Systems Other systems Unable to obtain due to mental status Exam Vital Signs Date Time Temp Pulse Resp B/P (MAP) Pulse Ox O2 Delivery O2 Flow Rate FiO2 02/26/23 09:00 64 21 96/57 (66) 99 Room Air 02/26/23 08:00 36.0 Capillary Refill : Less Than 3 Seconds General Appearance: no apparent distress, thin HEENT: other (unable to assess hearing) Cardiovascular: no edema Respiratory: no respiratory distress, no accessory muscle use Neurologic/Psychiatric: other (Sleeping throughout exam. Moans with movement of feet) Skin: normal color, warm/dry Wound assessment: Right: 1x2x0.1cm (in office last 1.4x2.5x0.2) Left: 2x2x0.2cm (in office last 1.3x1.5x0.2) The epithelialization is none. There is no tunneling or undermining. There is no drainage. Granulation is none. necrotic is large eschar. THe margins are flat Results Laboratory Tests 02/25/23 11:32: Glucometer 143H 02/25/23 18:00: Glucometer 147H 02/26/23 00:17: Glucometer 184H 02/26/23 03:34: White Blood Count 6.6, Red Blood Count 4.97, Hemoglobin 15.2, Hematocrit 45, Mean Corpuscular Volume 90, Mean Corpuscular Hemoglobin 31, Mean Corpuscular Hemoglobin Concent 34, Red Cell Distribution Width 13.8, Platelet Count 194, Mean Platelet Volume 11.0, Immature Granulocyte % (Auto) 0, Neutrophils (%) (Auto) 62, Lymphocytes (%) (Auto) 25, Monocytes (%) (Auto) 10, Eosinophils (%) (Auto) 2, Basophils (%) (Auto) 1, Neutrophils # (Auto) 4.1, Lymphocytes # (Auto) 1.6, Monocytes # (Auto) 0.7, Eosinophils # (Auto) 0.1, Basophils # (Auto) 0.0, Immature Granulocyte # (Auto) 0.0, Sodium Level 136, Potassium Level 3.9, Chloride Level 101, Carbon Dioxide Level 21, Anion Gap 14, Blood Urea Nitrogen 18, Creatinine 1.20, Estimat Glomerular Filtration Rate 64, BUN/Creatinine Ratio 15, Glucose Level 134H, Calcium Level 9.2, Phosphorus Level 4.8H, Magnesium Level 2.1 Microbiology 02/24/23 MRSA Screen - Final, Complete MRSA not isolated 02/24/23 Urine Culture - Final, Complete NO GROWTH 02/24/23 Blood Culture - Preliminary, Resulted No growth Microbiology 02/24/23 MRSA Screen - Final, Complete MRSA not isolated 02/24/23 Urine Culture - Final, Complete NO GROWTH 02/24/23 Blood Culture - Preliminary, Resulted No growth 02/24/23 Blood Culture - Preliminary, Resulted No growth Assessment/Plan/Dx Assessment: 1. Bilateral unstageable pressure ulcers of heels 2. PAD with ulcers to bilateral heels 3. ETOH abuse 4. Cardiomyopathy Plan: 1. [place] heels liberally with bet[place] bid and air dry. Cover with clean socks and Primo boots 2. Defer to Cardiology. 3. Defer to PCP 4. Defer to Cadiology MALINA HILL MD Feb 26, 2023 09:56
[2023-02-26] MEDS: AMIODARONE 200 MG (CORDARONE) TAB PO SCH ×2 (10:08→20:56)
--- NOTE | 2023-02-26 12:34 | Progress Note - Cardiology ---
Cardiology SOAP Progress Note Subjective: Somnolent Does not report any symptoms Objective: I&O/Vital Signs 02/26/23 02/26/23 02/26/23 02/26/23 01:00 01:05 02:00 03:00 Pulse 68 68 63 62 Resp 24 22 22 B/P (MAP) 90/67 (75) 82/57 (65) 92/63 (73) Pulse Ox 91 93 95 O2 Delivery Room Air Room Air Room Air 02/26/23 02/26/23 02/26/23 02/26/23 04:00 04:00 05:00 06:00 Pulse 70 61 64 Resp 22 29 30 B/P (MAP) 94/63 (73) 89/56 (67) 81/57 (65) Pulse Ox 95 94 94 92 O2 Delivery Room Air Room Air Room Air Room Air 02/26/23 02/26/23 02/26/23 02/26/23 07:00 07:00 08:00 08:00 Temp 36.0 Pulse 67 69 B/P (MAP) 93/63 (70) Pulse Ox 94 95 O2 Delivery Room Air Room Air 02/26/23 02/26/23 02/26/23 02/26/23 08:00 09:00 10:00 11:00 Pulse 66 64 74 68 Resp 25 21 18 14 B/P (MAP) 99/70 (77) 96/57 (66) 106/69 (82) 91/68 (75) Pulse Ox 95 99 100 100 O2 Delivery Room Air Room Air Room Air Room Air 02/26/23 02/26/23 02/26/23 11:53 12:00 12:13 Temp 35.7 Pulse 73 Resp 11 B/P (MAP) Pulse Ox 100 99 O2 Delivery Room Air Room Air 02/26/23 00:00 Intake Total 1972 ml Output Total 1550 ml Balance 422 ml Weight (Pounds): 188 Weight (Ounces): 0.0 Weight (Calculated Kilograms): 85.233931 Constitutional: well-developed, well-nourished Respiratory: chest expansion is symmetric, chest is bilaterally symmetric, other Cardiovascular: regular rate-rhythm, S1 and S2, systolic murmur Gastrointestional: soft, audible bowel sounds Extremities: no lower extremity edema bilateral Neurologic/Psychiatric: oriented x 3, other Skin: No rash on exposed areas, No ulcerations on exposed areas Results/Procedures: Labs Laboratory Tests 02/25/23 18:00: Glucometer 147H 02/26/23 00:17: Glucometer 184H 02/26/23 03:34: White Blood Count 6.6, Red Blood Count 4.97, Hemoglobin 15.2, Hematocrit 45, Mean Corpuscular Volume 90, Mean Corpuscular Hemoglobin 31, Mean Corpuscular Hemoglobin Concent 34, Red Cell Distribution Width 13.8, Platelet Count 194, Mean Platelet Volume 11.0, Immature Granulocyte % (Auto) 0, Neutrophils (%) (Auto) 62, Lymphocytes (%) (Auto) 25, Monocytes (%) (Auto) 10, Eosinophils (%) (Auto) 2, Basophils (%) (Auto) 1, Neutrophils # (Auto) 4.1, Lymphocytes # (Auto) 1.6, Monocytes # (Auto) 0.7, Eosinophils # (Auto) 0.1, Basophils # (Auto) 0.0, Immature Granulocyte # (Auto) 0.0, Sodium Level 136, Potassium Level 3.9, Chloride Level 101, Carbon Dioxide Level 21, Anion Gap 14, Blood Urea Nitrogen 1 8, Creatinine 1.20, Estimat Glomerular Filtration Rate 64, BUN/Creatinine Ratio 15, Glucose Level 134H, Calcium Level 9.2, Phosphorus Level 4.8H, Magnesium Le deena 2.1 02/26/23 11:38: Glucometer 124H Microbiology 02/24/23 MRSA Screen - Final, Complete MRSA not isolated 02/24/23 Urine Culture - Final, Complete NO GROWTH 02/24/23 Blood Culture - Preliminary, Resulted No growth Laboratory Tests 02/24/23 19:25 02/25/23 02:03 02/26/23 03:34 A/P: Assessment: Confusion - management per Medical services Acute systolic CHF - Echocardiiogram of 12-30-[address] Griffin showed LVEF 55-65%; concentric hypertrophy; grade 1 diastolic dysfunction. Mild to mod AoR. PASP 40 mmHg Frequent ventricular ectopy Severe cadiomyopathy - Echo of 02-25-23: The cavity size is normal. Wall thickness is normal. Systolic function is severely reduced. The estimated ejection fraction is 15-20%. Severe diffuse hypokinesis. Features are consistent with a pseudonormal left ventricular filling pattern, with concomitant abnormal relaxation and increased filling pressure (grade 2 diastolic dysfunction). Aortic valve: There is trivial regurgitation. Pulmonary arteries: Systolic pressure is in the range of 30 mm Hg to 35 mm Hg. Elevated troponin - NSTEMI vs Type 2 [place] secondary to acute CHF/severe CM H/O abnormal MPI - MPI of 3-7-[address] Griffin: Pharmacological stress test was negative for ischemia. Normal LV function with no wall motion abnormalities. Possible ischemi a in the apex. Elevated TID. Coronary angiography is recommended (pt refused at that time per Dr. Griffin's note) Heavy ETOH abuse - 3 pints Vodka/day HTN Non-compliant with medications/recs/follow up Plan: Acute systolic CHF with severe cardiomyopathy - start HF treatment with Lasix, BB, Entresto, aldactone - titrate doses as indicated/tolerated Elevated troponin - Type 2 [place] secondary to acute systolic CHF - continue ASA Advise immediate and complete alcohol cessation - monitor for withdrawal - management per medical services iv amiodarone to treat frequent ventricular ectopy in the setting of marked cardiomyopathy (placing him at risk of malignant ventricular arrhythmia) - when IV load completed, change to oral Monitor lab closely Replace electrolytes as indicated Confusion - management per Medical services ALEX CARROLL MD FACP [facility] Feb 26, 2023 12:33
[2023-02-26] MEDS: ENOXAPARIN 40 MG/0.4 ML (LOVENOX) SYR SQ SCH (20:56)
[2023-02-26] MEDS: DexMEDEtomidine 250 ML DRIP 250 ML IV SCH (21:31)
[2023-02-27 05:01] LABS: BASOPHILS % (AUTO) 0 % (0-10); EOSINOPHILS # (AUTO) 0.2 10^3/uL (0.0-0.3); EOSINOPHILS % (AUTO) 2 % (0-10); HEMATOCRIT 47 % (40-54); HEMOGLOBIN 15.8 g/dL (13.3-17.7); LYMPHOCYTES % (AUTO) 27 % (12-44); MEAN CORPUSCULAR HEMOGLOBIN 30 pg (25-34); MEAN CORPUSCULAR HGB CONC 34 g/dL (32-36); MEAN CORPUSCULAR VOLUME 91 fL (80-99); MEAN PLATELET VOLUME 10.8 fL (9.0-12.2); MONOCYTES # (AUTO) 0.8 10^3/uL (0.0-1.0); MONOCYTES % (AUTO) 10 % (0-12); NEUTROPHILS # (AUTO) 4.5 10^3/uL (1.8-7.8); NEUTROPHILS % (AUTO) 60 % (42-75); PLATELET COUNT 206 10^3/uL (130-400); WHITE BLOOD COUNT 7.4 10^3/uL (4.3-11.0)
[2023-02-27 05:20] LABS: CALCIUM 9.6 MG/DL (8.5-10.1); CREATININE SERUM 2.02 MG/DL (0.60-1.30); MAGNESIUM 2.3 MG/DL (1.6-2.4); PHOSPHORUS 5.8 MG/DL (2.3-4.7); POTASSIUM 4.7 MMOL/L (3.6-5.0)
[2023-02-27] MEDS: MAGNESIUM 1 GM/100 ML IVPB 100 ML IV SCH (06:00)
[2023-02-27] MEDS: KCL 20 MEQ TAB (K-DUR) PO SCH ×3 (06:00→20:44)
[2023-02-27] MEDS: POTASSIUM CL 10MEQ/50ML IVPB 50 ML IV SCH (06:00)
[2023-02-27] MEDS: MULTIVIT W/MINERALS TAB (THERAGRAN M) PO SCH (06:04)
[2023-02-27] MEDS: THIAMINE 100 MG (VITAMIN B-1) TAB PO SCH (06:04)
[2023-02-27] MEDS: FUROSEMIDE 40 MG/4 ML INJ (LASIX) IVP SCH ×2 (06:04→18:35)
[2023-02-27] MEDS: PANTOPRAZOLE 40 MG (PROTONIX) VIAL IV SCH (08:31)
[2023-02-27] MEDS: LORazepam INJ 2 MG/ML (ATIVAN) VIAL IV PRN ×4 (08:31→14:56)
[2023-02-27] MEDS: SACUBITRIL/VALSARTAN 24/26 MG (ENTRESTO) TABLET PO SCH ×2 (08:31→20:44)
--- NOTE | 2023-02-27 08:40 | Tele-ICU Progress Note ---
Subjective Date Seen by a Provider: Feb 27, 2023 Subjective/Events-last exam This virtual visit was conducted using real time audio/video. Thank you for asking us to see this patient for respiratory insufficiency due to CHF, ACS, CMP. Alcohol intoxication also. Recent events: Fluctuating mental status, on Precedex. PE: VSS. O2 sat 99% on 2 LPM. HEENT: No obvious masses, adenopathy or JVD. Chest: clear to auscultation. CV: RRR S1 S2 No murmur or added sounds. Abd: Non-tender. Bowel sounds Y. : Unremarkable. [place] Y. VENDER/psychiatric: Grossly intact. No obvious focal findings. Extremities: No edema. Capillary refill < 3 seconds. Skin: unremarkable. Results: Elevated BUN 28, BG 123, creat 2.02. CXR: .Hyperinflated, improved congestion. Available chart/ vitals / labs / images reviewed. Video assessment done using teleICU camera, rest of exam as per RN. A/P: Respiratory insufficiency: Continue present management with )2. Ruma precedex as aubrey. Monitor for increasing oxygenation needs. Critical Care: critically ill patient. Cont. ASA, lasix,BB, entresto, aldact., Aiod., CIWA, Juliet. Discussed with RN Alida. Asked RN to reach out to eICU if any questions or concerns later. Time spent with patient/coordination of care with other health professionals (mins): 20. Sepsis Event Evaluation Height, Weight, BMI Height: 6'0.00" Weight: 188lbs. 0.0oz. 85.755383vr; 24.36 BMI Method:Stated Focused Exam Lactate Level 02/24/23 19:25: Lactic Acid Level 1.47 Exam Exam Patient acknowledged, consented, and participated in this virtual visit which was conducted using real time audio/video Vital Signs Date Time Temp Pulse Resp B/P (MAP) Pulse Ox O2 Delivery O2 Flow Rate FiO2 02/27/23 08:00 62 19 82/60 (66) 97 Room Air 02/27/23 08:00 35.9 02/27/23 07:00 55 02/27/23 07:00 54 25 82/60 (69) 96 Room Air 02/27/23 06:05 62 98/67 02/27/23 06:00 55 16 98/67 (78) 100 Room Air 02/27/23 05:30 59 27 91/66 (72) 99 Room Air 02/27/23 05:00 54 21 85/57 (68) 100 Room Air 02/27/23 04:06 58 21 80/58 (65) 100 Room Air 02/27/23 04:00 98 Room Air 02/27/23 03:45 60 20 75/51 (62) 99 Room Air 02/27/23 02:19 98 Room Air 02/27/23 02:15 59 26 75/56 (64) 100 Room Air 02/27/23 01:30 58 80/58 02/27/23 01:00 60 24 75/49 (62) 98 Room Air 02/27/23 01:00 60 02/27/23 00:41 64 23 80/53 (62) 100 Room Air 02/27/23 00:30 58 25 71/49 (57) 100 Room Air 02/27/23 00:00 57 24 66/49 (55) 98 Room Air 02/26/23 23:59 97 Room Air 02/26/23 23:30 59 27 70/47 (55) 98 Room Air 02/26/23 22:35 94 Room Air 02/26/23 22:00 67 28 83/58 (66) 98 Room Air 02/26/23 21:31 68 106/74 02/26/23 21:00 72 16 101/72 (82) 97 Room Air 02/26/23 20:00 65 24 98/58 (73) 100 Room Air 02/26/23 20:00 97 Room Air 02/26/23 19:52 36.0 02/26/23 19:00 65 26 89/58 (67) 100 Room Air 02/26/23 19:00 65 02/26/23 18:00 68 31 106/74 (84) 100 Room Air 02/26/23 17:00 67 23 98/66 (82) 98 Room Air 02/26/23 16:31 99 Room Air 02/26/23 16:00 64 23 95/66 (77) 98 Room Air 02/26/23 16:00 36.3 02/26/23 15:00 72 21 108/69 (80) 100 Room Air 02/26/23 14:00 62 23 85/59 (70) 97 Room Air 02/26/23 13:00 70 15 94/65 (72) 100 Room Air 02/26/23 13:00 71 02/26/23 12:13 99 Room Air 02/26/23 12:00 73 11 100 Room Air 02/26/23 11:53 35.7 02/26/23 11:00 68 14 91/68 (75) 100 Room Air 02/26/23 10:00 74 18 106/69 (82) 100 Room Air 02/26/23 09:00 64 21 96/57 (66) 99 Room Air I & O 02/27/23 07:00 Intake Total 1210 ml Output Total 1250 ml Balance -40 ml Height & Weight Height: 6'0.00" Weight: 188lbs. 0.0oz. 85.552463bp; 24.36 BMI Method:Stated General Appearance: WD/WN, Moderate Distress (lying in bed, confused, slightly distressed with shortness of reath) HEENT: PERRL/EOMI Neck: Non Tender, Supple Respiratory: Chest Non Tender, Lungs Clear (poor effort due to confusion), No Accessory Muscle Use, No Respiratory Distress Cardiovascular: Regular Rate, Rhythm, Systolic Murmur Capillary Refill: Less Than 3 Seconds Extremity: Normal Capillary Refill, No Calf Tenderness, Pedal Edema (trace at ankles), Other (heel protectors in place on bilateral heels) Neurologic/Psychiatric: Disoriented Skin: Normal Color, Warm/Dry Results Lab Laboratory Tests 02/26/23 03:34 02/27/23 04:08 Assessment/Plan Assessment/Plan See free text. Critical Care: Critically Ill Patient MIGUEL A SRINIVASAN MD Feb 27, 2023 08:40
--- NOTE | 2023-02-27 09:23 | Progress Note ---
Subjective Subjective Date Seen by Provider: Feb 27, 2023 Time Seen by Provider: 08:00 Pt responsive to staff - minimally, he denies chest pain, shortness of breath Review of Systems General: No Chills; Fatigue, Malaise Pulmonary: No Dyspnea, No Cough Cardiovascular: No: Chest Pain, Palpitations Gastrointestinal: No: Nausea, Abdominal Pain Neurological: Weakness, Confusion All Other Systems Reviewed All Other Systems Reviewed: Yes Objective Exam Vital Signs Vital Signs Date Time Temp Pulse Resp B/P (MAP) Pulse Ox O2 Delivery O2 Flow Rate FiO2 02/27/23 08:00 62 19 82/60 (66) 97 Room Air 02/27/23 08:00 35.9 02/27/23 07:00 55 02/27/23 07:00 54 25 82/60 (69) 96 Room Air 02/27/23 06:05 62 98/67 02/27/23 06:00 55 16 98/67 (78) 100 Room Air 02/27/23 05:30 59 27 91/66 (72) 99 Room Air 02/27/23 05:00 54 21 85/57 (68) 100 Room Air 02/27/23 04:06 58 21 80/58 (65) 100 Room Air 02/27/23 04:00 98 Room Air 02/27/23 03:45 60 20 75/51 (62) 99 Room Air 02/27/23 02:19 98 Room Air 02/27/23 02:15 59 26 75/56 (64) 100 Room Air 02/27/23 01:30 58 80/58 02/27/23 01:00 60 24 75/49 (62) 98 Room Air 02/27/23 01:00 60 02/27/23 00:41 64 23 80/53 (62) 100 Room Air 02/27/23 00:30 58 25 71/49 (57) 100 Room Air 02/27/23 00:00 57 24 66/49 (55) 98 Room Air 02/26/23 23:59 97 Room Air 02/26/23 23:30 59 27 70/47 (55) 98 Room Air 02/26/23 22:35 94 Room Air 02/26/23 22:00 67 28 83/58 (66) 98 Room Air 02/26/23 21:31 68 106/74 02/26/23 21:00 72 16 101/72 (82) 97 Room Air 02/26/23 20:00 65 24 98/58 (73) 100 Room Air 02/26/23 20:00 97 Room Air 02/26/23 19:52 36.0 02/26/23 19:00 65 26 89/58 (67) 100 Room Air 02/26/23 19:00 65 02/26/23 18:00 68 31 106/74 (84) 100 Room Air 02/26/23 17:00 67 23 98/66 (82) 98 Room Air 02/26/23 16:31 99 Room Air 02/26/23 16:00 64 23 95/66 (77) 98 Room Air 02/26/23 16:00 36.3 02/26/23 15:00 72 21 108/69 (80) 100 Room Air 02/26/23 14:00 62 23 85/59 (70) 97 Room Air 02/26/23 13:00 70 15 94/65 (72) 100 Room Air 02/26/23 13:00 71 02/26/23 12:13 99 Room Air 02/26/23 12:00 73 11 100 Room Air 02/26/23 11:53 35.7 02/26/23 11:00 68 14 91/68 (75) 100 Room Air 02/26/23 10:00 74 18 106/69 (82) 100 Room Air I & O 02/27/23 07:00 Intake Total 1210 ml Output Total 1250 ml Balance -40 ml General Appearance: WD/WN, Mild Distress (pt groggy, not very responsive - pt on precedex due to aggressive behavior with staff overnight) HEENT: PERRL/EOMI Neck: Non Tender, Supple Respiratory: Chest Non Tender, Lungs Clear (poor effort due to confusion), No Accessory Muscle Use, No Respiratory Distress Cardiovascular: Regular Rate, Rhythm, Systolic Murmur Gastrointestinal: Normal Bowel Sounds, Non Tender, Soft Back: No CVA Tenderness Extremity: Normal Capillary Refill, No Calf Tenderness, Pedal Edema (trace at ankles), Other (heel protectors in place on bilateral heels) Neurologic/Psychiatric: Disoriented Skin: Normal Color, Warm/Dry Results Lab Laboratory Tests 02/26/23 11:38: Glucometer 124H 02/26/23 18:20: Glucometer 123H 02/27/23 01:24: Glucometer 159H 02/27/23 04:08: White Blood Count 7.4, Red Blood Count 5.20, Hemoglobin 15.8, Hematocrit 47, Mean Corpuscular Volume 91, Mean Corpuscular Hemoglobin 30, Mean Corpuscular Hemoglobin Concent 34, Red Cell Distribution Width 14.0, Platelet Count 206, Mean Platelet Volume 10.8, Immature Granulocyte % (Auto) 0, Neutrophils (%) (Auto) 60, Lymphocytes (%) (Auto) 27, Monocytes (%) (Auto) 10, Eosinophils (%) (Auto) 2, Basophils (%) (Auto) 0, Neutrophils # (Auto) 4.5, Lymphocytes # (Auto) 2.0, Monocytes # (Auto) 0.8, Eosinophils # (Auto) 0.2, Basophils # (Auto) 0.0, Immature Granulocyte # (Auto) 0.0, Sodium Level 135, Potassium Level 4.7, Chloride Level 100, Carbon Dioxide Level 21, Anion Gap 14, Blood Urea Nitrogen 28H, Creatinine 2.02H, Estimat Glomerular Filtration Rate 34, BUN/Creatinine Ratio 14, Glucose Level 123H, Calcium Level 9.6, Phosphorus Level 5.8H, M agnesium Level 2.3 Microbiology 02/24/23 MRSA Screen - Final, Complete MRSA not isolated 02/24/23 Urine Culture - Final, Complete NO GROWTH 02/24/23 Blood Culture - Preliminary, Resulted No growth Assessment/Plan Assessment/Plan Admission Dx Acute systolic congestion heart failure due to cardiomyopathy from alcoholism Alcoholism History of alcohol withdrawal seizures Elevated troponin Medication noncompliance Assessment and Plan Acute systolic congestion heart failure due to cardiomyopathy from alcoholism Alcoholism History of alcohol withdrawal seizures Elevated troponin Medication noncompliance Aggressive behavior with staff Hypotension Acute systolic congestion heart failure due to cardiomyopathy from alcoholism - consult to Dr. Jang - see hs note for full details - pt on amiodarone IV, EF of 15 - 20%, down significantly from 2019 echo report. - Jet will need close follow up as outpatient due to his heart failure. - his alcoholism is the primary cause of his cardiovascular compromise. Alcoholism with History of alcohol withdrawal seizures - [facility] protocol - close and aggressive monitoring - he was still intoxicated on admission to hospital. Elevated troponin - defer to cardiology - may be due to NSTEMI versus heart failure causing elevated troponin Medication noncompliance - will need close, consistent follow up. Aggressive behavior with staff - pt on precedex Hypotension - - hold bp meds today, monitor pressures closely He may benefit from inpatient rehab on DC due to his weakness. Last admission we had him set up for NH for SNF - but he left AMA. DVT prophylaxis with scd's and anticoag. GI Prophylaxis with ppi. PT at VERY high right of in-hospital due to his hx of DT's and his acutely compromised cardiovascular status Admission Dx Acute systolic congestion heart failure due to cardiomyopathy from alcoholism Alcoholism History of alcohol withdrawal seizures Elevated troponin Medication noncompliance Clinical Quality Measures Admission Status Admission Dx Acute systolic congestion heart failure due to cardiomyopathy from alcoholism Alcoholism History of alcohol withdrawal seizures Elevated troponin Medication noncompliance KARLI ANTUNEZ MD Feb 27, 2023 09:23
[2023-02-27] MEDS: ASPIRIN E.C. 81 MG (ECOTRIN) TAB PO SCH (10:53)
[2023-02-27] MEDS: SPIRONOLACTONE 25 MG (ALDACTONE) TAB PO SCH (10:54)
[2023-02-27] MEDS: EMPAGLIFLOZIN 10 MG TABLET (JARDIANCE) PO SCH (10:54)
[2023-02-27] MEDS: AMIODARONE 200 MG (CORDARONE) TAB PO SCH ×2 (10:54→20:43)
[2023-02-27] MEDS: FOLIC ACID 1 MG TAB PO SCH (10:54)
[2023-02-27] MEDS: NS IV 1000 ML 1,000 ML IV SCH (11:44)
--- NOTE | 2023-02-27 11:59 | Progress Note - Cardiology ---
Cardiology SOAP Progress Note Subjective: Verbally unresponsive Objective: I&O/Vital Signs 02/26/23 02/27/23 02/27/23 02/27/23 23:59 00:00 00:30 00:41 Pulse 57 58 64 Resp 23 B/P (MAP) 66/49 (55) 71/49 (57) 80/53 (62) Pulse Ox 97 98 100 100 O2 Delivery Room Air Room Air Room Air Room Air 02/27/23 02/27/23 02/27/23 02/27/23 01:00 01:00 01:30 02:15 Pulse 60 60 58 59 Resp 26 B/P (MAP) 75/49 (62) 80/58 75/56 (64) Pulse Ox 98 100 O2 Delivery Room Air Room Air 02/27/23 02/27/23 02/27/23 02/27/23 02:19 03:45 04:00 04:06 Pulse 60 58 Resp 20 21 B/P (MAP) 75/51 (62) 80/58 (65) Pulse Ox 98 99 98 100 O2 Delivery Room Air Room Air Room Air Room Air 02/27/23 02/27/23 02/27/23 02/27/23 05:00 05:30 06:00 06:05 Pulse 54 59 55 62 Resp 21 27 16 B/P (MAP) 85/57 (68) 91/66 (72) 98/67 (78) 98/67 Pulse Ox 100 99 100 O2 Delivery Room Air Room Air Room Air 02/27/23 02/27/23 02/27/23 02/27/23 07:00 07:00 08:00 08:00 Temp 35.9 Pulse 54 55 Resp 25 B/P (MAP) 82/60 (69) Pulse Ox 96 98 O2 Delivery Room Air Room Air 02/27/23 02/27/23 02/27/23 02/27/23 08:00 09:00 10:00 11:00 Pulse 62 55 61 63 Resp 19 26 23 25 B/P (MAP) 82/60 (66) 82/58 (66) 99/59 (68) 102/63 (78) Pulse Ox 97 100 97 99 O2 Delivery Room Air Room Air Room Air Room Air 02/27/23 00:00 Intake Total 500 ml Output Total 875 ml Balance -375 ml Weight (Pounds): 188 Weight (Ounces): 0.0 Weight (Calculated Kilograms): 85.472457 Constitutional: well-developed, well-nourished, other (verbally unresponsive) Respiratory: chest expansion is symmetric, chest is bilaterally symmetric, other Cardiovascular: regular rate-rhythm, S1 and S2, systolic murmur Gastrointestional: soft, audible bowel sounds Extremities: no lower extremity edema bilateral Neurologic/Psychiatric: oriented x 3, other Skin: No rash on exposed areas, No ulcerations on exposed areas Results/Procedures: Labs Laboratory Tests 02/26/23 18:20: Glucometer 123H 02/27/23 01:24: Glucometer 159H 02/27/23 04:08: White Blood Count 7.4, Red Blood Count 5.20, Hemoglobin 15.8, Hematocrit 47, Mean Corpuscular Volume 91, Mean Corpuscular Hemoglobin 30, Mean Corpuscular Hemoglobin Concent 34, Red Cell Distribution Width 14.0, Platelet Count 206, Mean Platelet Volume 10.8, Immature Granulocyte % (Auto) 0, Neutrophils (%) (Auto) 60, Lymphocytes (%) (Auto) 27, Monocytes (%) (Auto) 10, Eosinophils (%) (Auto) 2, Basophils (%) (Auto) 0, Neutrophils # (Auto) 4.5, Lymphocytes # (Auto) 2.0, Monocytes # (Auto) 0.8, Eosinophils # (Auto) 0.2, Basophils # (Auto) 0.0, Immature Granulocyte # (Auto) 0.0, Sodium Level 135, Potassium Level 4.7, Chloride Level 100, Carbon Dioxide Level 21, Anion Gap 14, Blood Urea Nitrogen 28H, Creatinine 2.02H, Estimat Glomerular Filtration Rate 34, BUN/Creatinine Ratio 14, Glucose Level 123H, Calcium Level 9.6, Phosphorus Level 5.8H, Magnesium Level 2.3 Microbiology 02/24/23 MRSA Screen - Final, Complete MRSA not isolated 02/24/23 Urine Culture - Final, Complete NO GROWTH 02/24/23 Blood Culture - Preliminary, Resulted No growth A/P: Assessment: Confusion - likely alcohol withdrawal - management per Medical services Ac renal failure - likely volume depletion due to diuretics to treat hear failure Acute systolic CHF - Echocardiiogram of 12-30-[address] Griffin showed LVEF 55-65%; concentric hypertrophy; grade 1 diastolic dysfunction. Mild to mod AoR. PASP 40 mmHg Frequent ventricular ectopy Severe cadiomyopathy - Echo of 02-25-23: The cavity size is normal. Wall thickness is normal. Systolic function is severely reduced. The estimated ejection fraction is 15-20%. Severe diffuse hypokinesis. Features are consistent with a pseudonormal left ventricular filling pattern, with concomitant abnormal relaxation and increased filling pressure (grade 2 diastolic dysfunction). Aortic valve: There is trivial regurgitation. Pulmonary arteries: Systolic pressure is in the range of 30 mm Hg to 35 mm Hg. Elevated troponin - NSTEMI vs Type 2 DC secondary to acute CHF/severe CM H/O abnormal MPI - MPI of 01-05-[address] Griffin: Pharmacological stress test was negative for ischemia. Normal LV function with no wall motion abnormalities. Possible isc hemia in the apex. Elevated TID. Coronary angiography is recommended (pt refused at that time per Dr. Griffin's note) Heavy ETOH abuse - 3 pints Vodka/day HTN Non-compliant with medications/recs/follow up Plan: * Reduce diuretics * iv fluids * HF treatment as tolerated by bp and renal funciton * Management of alcohol withdrawal by the Hosp svce * Continue amiodarone which has resulted in control of vent arrhythhmia * Monitor labs ALEX CARROLL MD FACP [facility] CCDS Feb 27, 2023 11:59
[2023-02-27] MEDS: ENOXAPARIN 40 MG/0.4 ML (LOVENOX) SYR SQ SCH (20:44)
[2023-02-27] MEDS: LORazepam 1 MG (ATIVAN) TAB PO PRN (23:53)
[2023-02-28] MEDS: NS IV 1000 ML 1,000 ML IV SCH ×2 (04:12→22:28)
[2023-02-28] MEDS: DexMEDEtomidine 250 ML DRIP 250 ML IV SCH (04:13)
[2023-02-28 05:28] LABS: CALCIUM 9.3 MG/DL (8.5-10.1)
[2023-02-28 05:32] LABS: CREATININE SERUM 1.38 MG/DL (0.60-1.30); PHOSPHORUS 4.9 MG/DL (2.3-4.7)
[2023-02-28 05:34] LABS: MAGNESIUM 2.2 MG/DL (1.6-2.4)
[2023-02-28] MEDS: KCL 20 MEQ TAB (K-DUR) PO SCH ×3 (06:10→20:34)
[2023-02-28] MEDS: MAGNESIUM 1 GM/100 ML IVPB 100 ML IV SCH (06:10)
[2023-02-28] MEDS: POTASSIUM CL 10MEQ/50ML IVPB 50 ML IV SCH (06:10)
[2023-02-28] MEDS: FUROSEMIDE 40 MG/4 ML INJ (LASIX) IVP SCH ×2 (06:46→17:31)
[2023-02-28] MEDS: MULTIVIT W/MINERALS TAB (THERAGRAN M) PO SCH (06:48)
--- NOTE | 2023-02-28 07:15 | Progress Note ---
Subjective Subjective Date Seen by Provider: Feb 28, 2023 Time Seen by Provider: 07:00 Pt alert, oriented to person, not place/time. He reports that he is unsure who this scientific technical writer is, and why I am "here". After orientation as to who this scientific technical writer is and where he is located in the hospital, he asked, "now, how did this happen." Callum had multiple other questions this morning including about his heart. He was surprised about his decline in heart function, and asking questions about "how to get that back." Review of Systems General: No Chills; Fatigue, Malaise HEENT: No Head Aches; Visual Changes Pulmonary: No Dyspnea, No Cough Cardiovascular: No: Chest Pain, Palpitations Gastrointestinal: No: Nausea, Abdominal Pain Neurological: Weakness, Confusion All Other Systems Reviewed All Other Systems Reviewed: Yes Objective Exam Vital Signs Vital Signs Date Time Temp Pulse Resp B/P (MAP) Pulse Ox O2 Delivery O2 Flow Rate FiO2 02/28/23 06:00 22 02/28/23 06:00 61 37 86/55 (65) 100 Room Air 02/28/23 05:00 63 12 98/65 (76) 98 02/28/23 04:00 98 Room Air 02/28/23 04:00 36.4 64 20 121/66 (84) 100 Room Air 02/28/23 03:00 64 21 101/77 (85) 100 02/28/23 02:00 60 20 82/58 (66) 96 02/28/23 01:00 62 22 93/58 (68) 98 02/28/23 01:00 63 02/28/23 00:00 67 20 100/77 (85) 98 Room Air 02/27/23 23:36 36.5 02/27/23 23:36 98 Room Air 02/27/23 23:00 68 16 93/63 (73) 99 Room Air 02/27/23 23:00 68 16 93/63 (73) 100 02/27/23 22:00 71 18 95/73 (80) 99 Room Air 02/27/23 22:00 71 20 95/73 (78) 99 02/27/23 21:00 67 22 108/85 (93) 99 Room Air 02/27/23 21:00 66 22 108/79 (89) 100 02/27/23 20:00 73 18 111/67 (82) 100 Room Air 02/27/23 19:45 Room Air 02/27/23 19:00 61 02/27/23 19:00 61 17 102/73 (83) 98 Room Air 02/27/23 18:00 65 17 109/72 (84) 99 Room Air 02/27/23 17:00 58 20 83/53 (63) 99 Room Air 02/27/23 16:00 98 Room Air 02/27/23 16:00 58 18 85/57 (66) 99 Room Air 02/27/23 15:00 64 27 96/54 (62) 98 Room Air 02/27/23 14:00 60 38 86/58 (70) 100 Room Air 02/27/23 13:00 65 24 93/59 (69) 98 Room Air 02/27/23 12:32 69 02/27/23 12:00 36.3 02/27/23 12:00 65 25 97/73 (77) 98 Room Air 02/27/23 12:00 98 Room Air 02/27/23 11:00 63 25 102/63 (78) 99 Room Air 02/27/23 10:00 61 23 99/59 (68) 97 Room Air 02/27/23 09:00 55 26 82/58 (66) 100 Room Air 02/27/23 08:00 62 19 82/60 (66) 97 Room Air 02/27/23 08:00 98 Room Air 02/27/23 08:00 35.9 02/27/23 07:37 98 Room Air I & O 02/28/23 07:00 Intake Total 1500 ml Output Total 1005 ml Balance 495 ml General Appearance: No Apparent Distress, WD/WN HEENT: PERRL/EOMI Neck: Non Tender, Supple Respiratory: Chest Non Tender, Lungs Clear, No Accessory Muscle Use, No Respiratory Distress Cardiovascular: Regular Rate, Rhythm, Systolic Murmur Gastrointestinal: Normal Bowel Sounds, Non Tender, Soft Back: No CVA Tenderness Extremity: Normal Capillary Refill, No Calf Tenderness, No Pedal Edema Neurologic/Psychiatric: Alert, Other (oriented to person, not place, time) Skin: Normal Color, Warm/Dry, Other (abrasions on heels) Results Lab Laboratory Tests 02/27/23 12:02: Glucometer 126H 02/27/23 18:52: Glucometer 190H 02/27/23 23:19: Glucometer 117H 02/28/23 04:19: Sodium Level 135, Potassium Level 5.0, Chloride Level 105, Carbon Dioxide Level 11L, Anion Gap 19H, Blood Urea Nitrogen 34H, Creatinine 1.38H, Estimat Glomerular Filtration Rate 54, BUN/Creatinine Ratio 25, Glucose Level 101, Calcium Level 9.3, Phosphorus Level 4.9H, Magnesium Level 2.2 Microbiology 02/24/23 MRSA Screen - Final, Complete MRSA not isolated 02/24/23 Urine Culture - Final, Complete NO GROWTH 02/24/23 Blood Culture - Preliminary, Resulted No growth Assessment/Plan Assessment/Plan Admission Dx Acute systolic congestion heart failure due to cardiomyopathy from alcoholism Alcoholism History of alcohol withdrawal seizures Elevated troponin Medication noncompliance Assessment and Plan Acute systolic congestion heart failure due to cardiomyopathy from alcoholism Alcoholism History of alcohol withdrawal seizures Elevated troponin Medication noncompliance Aggressive behavior with staff Hypotension Acute systolic congestion heart failure due to cardiomyopathy from alcoholism - consult to Dr. Jang - see hs note for full details - pt on amiodarone, EF of 15 - 20%, down significantly from 2019 echo report. - Jet will need close follow up as outpatient due to his heart failure. - his alcoholism is the primary cause of his cardiovascular compromise. Alcoholism with History of alcohol withdrawal seizures - [facility] protocol - close and aggressive monitoring - he was still intoxicated on admission to hospital. Elevated troponin - defer to cardiology - may be due to NSTEMI versus heart failure causing elevated troponin Medication noncompliance - will need close, consistent follow up. Aggressive behavior with staff - pt on precedex Hypotension - - slight fluid support overnight due to hypotension. Acute renal failure - improved after fluid supplementation He may benefit from inpatient rehab on DC due to his weakness. Last admission we had him set up for NH for SNF - but he left AMA. DVT prophylaxis with scd's and anticoag. GI Prophylaxis with ppi. PT at VERY high risk of in-hospital due to his hx of DT's and his acutely compromised cardiovascular status Admission Dx Acute systolic congestion heart failure due to cardiomyopathy from alcoholism Alcoholism History of alcohol withdrawal seizures Elevated troponin Medication noncompliance Clinical Quality Measures Admission Status Admission Dx Acute systolic congestion heart failure due to cardiomyopathy from alcoholism Alcoholism History of alcohol withdrawal seizures Elevated troponin Medication noncompliance KARLI ANTUNEZ MD Feb 28, 2023 07:15
[2023-02-28] MEDS: SACUBITRIL/VALSARTAN 24/26 MG (ENTRESTO) TABLET PO SCH ×2 (08:25→20:34)
[2023-02-28] MEDS: FOLIC ACID 1 MG TAB PO SCH (08:25)
[2023-02-28] MEDS: ASPIRIN E.C. 81 MG (ECOTRIN) TAB PO SCH (08:25)
[2023-02-28] MEDS: EMPAGLIFLOZIN 10 MG TABLET (JARDIANCE) PO SCH (08:25)
[2023-02-28] MEDS: AMIODARONE 200 MG (CORDARONE) TAB PO SCH ×2 (08:25→20:34)
[2023-02-28] MEDS: SPIRONOLACTONE 25 MG (ALDACTONE) TAB PO SCH (08:25)
[2023-02-28] MEDS: PANTOPRAZOLE 40 MG (PROTONIX) VIAL IV SCH (08:26)
[2023-02-28 09:57] LABS: BASOPHILS # (AUTO) 0.1 10^3/uL (0.0-0.1); BASOPHILS % (AUTO) 1 % (0-10); EOSINOPHILS # (AUTO) 0.2 10^3/uL (0.0-0.3); EOSINOPHILS % (AUTO) 2 % (0-10); HEMATOCRIT 54 % (40-54); HEMOGLOBIN 17.8 g/dL (13.3-17.7); LYMPHOCYTES % (AUTO) 24 % (12-44); MEAN CORPUSCULAR HEMOGLOBIN 31 pg (25-34); MEAN CORPUSCULAR HGB CONC 33 g/dL (32-36); MEAN CORPUSCULAR VOLUME 92 fL (80-99); MEAN PLATELET VOLUME 11.5 fL (9.0-12.2); MONOCYTES # (AUTO) 0.8 10^3/uL (0.0-1.0); MONOCYTES % (AUTO) 10 % (0-12); NEUTROPHILS % (AUTO) 62 % (42-75); PLATELET COUNT 182 10^3/uL (130-400); WHITE BLOOD COUNT 8.1 10^3/uL (4.3-11.0)
--- NOTE | 2023-02-28 10:08 | Tele-ICU Progress Note ---
Subjective Date Seen by a Provider: Feb 28, 2023 Time Seen by a Provider: 10:08 Subjective/Events-last exam (Tele-ICU Physician , Progress Note ) Service provided via interactive audio and video telecommunications E-CARE system to a patient admitted to ICU bed in [facility]. Patient is seen today due to persistent need of ICU care Available chart/ vitals / labs / Images reviewed Video assessment done using teleICU camera, rest of exam as per RN Discussed with RN Events overnight : Afebrile hemodynamically stable Respiratory - RA I/O =+ Drips: NS50 Pressors- no Hospital course: (02/24) 72yM Admit w/Alcohol Intox in active alcoholic, ACS chf cardiomyopathy 02/25/23- ECHO EF - 15-20% 02/27- CIWA ativan/ precedex 0.1 A/P ETON abuse / "drinking binge" for the last 3 weeks; - CIWA - was getting ativan , reportedly not working , started on precedex 0.1 02/28 - vitamins Elevated troponin - NSTEMI vs Type 2 MT secondary to acute CHF/severe CM - as per cards , ASA Acute systolic CHF with severe cardiomyopathy -ECHO EF - 15-20% - as per cards - Lasix, BB, Entresto, aldactone- as per cards frequent ventricular ectopy - on amio po as per cards CATHERINE - with diuresis - decreased dose as per cards - follow on lasix 20 and spirinolactone - on NS 50 Lines : periph , (Central Line Necessity Reviewed) [place]: + OG: Nutrition: po Analgesia: Anxiety/ delirium VTE Prophylaxis: pat 40 Stress Ulcer Prophylaxis: na Plans in collaboration with bedside consultants and IM MDs. Discussed with RN to reach out if any questions or concerns Case and care daily discussed on multidisciplinary rounds ( RN, PharmD, Filter Helper , Respiratory Therapy, conversion worker ) A total of _15 minutes of critical care time was devoted to this patient today, required to treat and/or prevent further deterioration of critical care condition ( as above ) . I am remotely monitoring this patient from another state. I am unable to do the bedside exam, and history/physical and pertinent information is taken from other notes in the computer and bedside staff. Sepsis Event Evaluation Height, Weight, BMI Height: 6'0.00" Weight: 188lbs. 0.0oz. 85.859886nj; 24.36 BMI Method:Stated Exam Exam Patient acknowledged, consented, and participated in this virtual visit which was conducted using real time audio/video Vital Signs Date Time Temp Pulse Resp B/P (MAP) Pulse Ox O2 Delivery O2 Flow Rate FiO2 02/28/23 09:00 61 12 104/81 (89) 98 Room Air 02/28/23 08:00 97 Room Air 02/28/23 08:00 63 20 94/63 (73) 99 Room Air 02/28/23 07:39 36.0 02/28/23 07:00 54 02/28/23 07:00 55 33 94/64 (74) 99 Room Air 02/28/23 06:00 22 02/28/23 06:00 61 37 86/55 (65) 100 Room Air 02/28/23 05:00 63 12 98/65 (76) 98 02/28/23 04:00 98 Room Air 02/28/23 04:00 36.4 64 20 121/66 (84) 100 Room Air 02/28/23 03:00 64 21 101/77 (85) 100 02/28/23 02:00 60 20 82/58 (66) 96 02/28/23 01:00 62 22 93/58 (68) 98 02/28/23 01:00 63 02/28/23 00:00 67 20 100/77 (85) 98 Room Air 02/27/23 23:36 36.5 02/27/23 23:36 98 Room Air 02/27/23 23:00 68 16 93/63 (73) 99 Room Air 02/27/23 23:00 68 16 93/63 (73) 100 02/27/23 22:00 71 18 95/73 (80) 99 Room Air 02/27/23 22:00 71 20 95/73 (78) 99 02/27/23 21:00 67 22 108/85 (93) 99 Room Air 02/27/23 21:00 66 22 108/79 (89) 100 02/27/23 20:00 73 18 111/67 (82) 100 Room Air 02/27/23 19:45 Room Air 02/27/23 19:00 61 02/27/23 19:00 61 17 102/73 (83) 98 Room Air 02/27/23 18:00 65 17 109/72 (84) 99 Room Air 02/27/23 17:00 58 20 83/53 (63) 99 Room Air 02/27/23 16:00 98 Room Air 02/27/23 16:00 58 18 85/57 (66) 99 Room Air 02/27/23 15:00 64 27 96/54 (62) 98 Room Air 02/27/23 14:00 60 38 86/58 (70) 100 Room Air 02/27/23 13:00 65 24 93/59 (69) 98 Room Air 02/27/23 12:32 69 02/27/23 12:00 36.3 02/27/23 12:00 65 25 97/73 (77) 98 Room Air 02/27/23 12:00 98 Room Air 02/27/23 11:00 63 25 102/63 (78) 99 Room Air I & O 02/28/23 07:00 Intake Total 1500 ml Output Total 1005 ml Balance 495 ml Height & Weight Height: 6'0.00" Weight: 188lbs. 0.0oz. 85.481283gu; 24.36 BMI Method:Stated General Appearance: No Apparent Distress, WD/WN HEENT: PERRL/EOMI Neck: Non Tender, Supple Respiratory: Chest Non Tender, Lungs Clear, No Accessory Muscle Use, No Respiratory Distress Cardiovascular: Regular Rate, Rhythm, Systolic Murmur Capillary Refill: Less Than 3 Seconds Extremity: Normal Capillary Refill, No Calf Tenderness, No Pedal Edema Neurologic/Psychiatric: Alert, Other (oriented to person, not place, time) Skin: Normal Color, Warm/Dry, Other (abrasions on heels) Results Lab Laboratory Tests 02/27/23 04:08 02/28/23 04:19 02/28/23 09:53 Assessment/Plan Assessment/Plan 1 TAMEKA GALLAGHER MD Feb 28, 2023 10:08
--- NOTE | 2023-02-28 10:53 | Progress Note - Cardiology ---
Cardiology SOAP Progress Note Subjective: Agitated and confused off Precedex Currently on Precedex (managed by ICU and Hospitalist services) and verbally unresponsive Objective: I&O/Vital Signs 02/27/23 02/27/23 02/27/23 02/27/23 23:00 23:00 23:36 23:36 Temp 36.5 Pulse 68 68 Resp 16 16 B/P (MAP) 93/63 (73) 93/63 (73) Pulse Ox 100 99 98 O2 Delivery Room Air Room Air 02/28/23 02/28/23 02/28/23 02/28/23 00:00 01:00 01:00 02:00 Pulse 67 63 62 60 Resp 20 22 20 B/P (MAP) 100/77 (85) 93/58 (68) 82/58 (66) Pulse Ox 98 98 96 O2 Delivery Room Air 02/28/23 02/28/23 02/28/23 02/28/23 03:00 04:00 04:00 05:00 Temp 36.4 Pulse 64 64 63 Resp 21 20 12 B/P (MAP) 101/77 (85) 121/66 (84) 98/65 (76) Pulse Ox 100 100 98 98 O2 Delivery Room Air Room Air 02/28/23 02/28/23 02/28/23 02/28/23 06:00 06:00 07:00 07:00 Pulse 61 55 54 Resp 37 22 33 B/P (MAP) 86/55 (65) 94/64 (74) Pulse Ox 100 99 O2 Delivery Room Air Room Air 02/28/23 02/28/23 02/28/23 02/28/23 07:39 08:00 08:00 09:00 Temp 36.0 Pulse 63 61 Resp 20 12 B/P (MAP) 94/63 (73) 104/81 (89) Pulse Ox 99 97 98 O2 Delivery Room Air Room Air Room Air 02/28/23 00:00 Intake Total 350 ml Output Total 550 ml Balance -200 ml Weight (Pounds): 188 Weight (Ounces): 0.0 Weight (Calculated Kilograms): 85.299786 Constitutional: well-developed, well-nourished, other (verbally unresponsive) Respiratory: chest expansion is symmetric, chest is bilaterally symmetric, other Cardiovascular: regular rate-rhythm, S1 and S2, systolic murmur Gastrointestional: soft, audible bowel sounds Extremities: no lower extremity edema bilateral Neurologic/Psychiatric: oriented x 3, other Skin: No rash on exposed areas, No ulcerations on exposed areas Results/Procedures: Labs Laboratory Tests 02/27/23 12:02: Glucometer 126H 02/27/23 18:52: Glucometer 190H 02/27/23 23:19: Glucometer 117H 02/28/23 04:19: Sodium Level 135, Potassium Level 5.0, Chloride Level 105, Carbon Dioxide Level 11L, Anion Gap 19H, Blood Urea Nitrogen 34H, Creatinine 1.38H, Estimat Glomerular Filtration Rate 54, BUN/Creatinine Ratio 25, Glucose Level 101, Calcium Level 9.3, Phosphorus Level 4.9H, Magnesium Level 2.2 02/28/23 09:53: White Blood Count 8.1, Red Blood Count 5.81H, Hemoglobin 17.8H, Hematocrit 54, Mean Corpuscular Volume 92, Mean Corpuscular Hemoglobin 31, Mean Corpuscular He moglobin Concent 33, Red Cell Distribution Width 14.4, Platelet Count 182, Mean Platelet Volume 11.5, Immature Granulocyte % (Auto) 0, Neutrophils (%) (Auto) 62, Lymphocytes (%) (Auto) 24, Monocytes (%) (Auto) 10, Eosinophils (%) (Auto) 2, Basophils (%) (Auto) 1, Neutrophils # (Auto) 5.0, Lymphocytes # (Auto) 2.0, Monocytes # (Auto) 0.8, Eosinophils # (Auto) 0.2, Basophils # (Auto) 0.1, Immature Granulocyte # (Auto) 0.0 Microbiology 02/24/23 MRSA Screen - Final, Complete MRSA not isolated 02/24/23 Urine Culture - Final, Complete NO GROWTH 02/24/23 Blood Culture - Preliminary, Resulted No growth Laboratory Tests 02/27/23 04:08 02/28/23 04:19 02/28/23 09:53 A/P: Assessment: Confusion - likely alcohol withdrawal - management per Medical services Ac renal failure - likely volume depletion due to diuretics to treat heart failure - much improved on 02/28/23 after iv fluids and reduction in diuretics Acute systolic CHF - Echocardiiogram of 12-30-[address] Griffin showed LVEF 55-65%; concentric hypertrophy; grade 1 diastolic dysfunction. Mild to mod AoR. PASP 40 mmHg Frequent ventricular ectopy Severe cadiomyopathy - Echo of 02-25-23: The cavity size is normal. Wall thickness is normal. Systolic function is severely reduced. The estimated ejection fraction is 15-20%. Severe diffuse hypokinesis. Features are consistent with a pseudonormal left ventricular filling pattern, with concomitant abnormal relaxation and increased filling pressure (grade 2 diastolic dysfunction). Aortic valve: There is trivial regurgitation. Pulmonary arteries: Systolic pressure is in the range of 30 mm Hg to 35 mm Hg. Elevated troponin - NSTEMI vs Type 2 NE secondary to acute CHF/severe CM H/O abnormal MPI - MPI of 01-05-[address] Griffin: Pharmacological stress test was negative for ischemia. Normal LV function with no wall motion abnormalities. Possible ischemia in the apex. Elevated TID. Coronary angiography is recommended (pt refused at that time per Dr. Griffin's note) Heavy ETOH abuse - 3 pints Vodka/day HTN Non-compliant with medications/recs/follow up Plan: * Complex management * Reduced diuretics and give iv fluids to treat acute renal failure due to volume depletion. Now reduce fluids to reduce risk of overt heart failure * HF treatment as tolerated by bp and renal function * Management of alcohol withdrawal by the Hosp svce * Continue amiodarone which has resulted in control of vent arrhythhmia * Monitor labs ALEX CARROLL MD FACP [facility]S Feb 28, 2023 10:53
[2023-02-28] MEDS: LORazepam INJ 2 MG/ML (ATIVAN) VIAL IV PRN (11:27)
[2023-02-28] MEDS: ENOXAPARIN 40 MG/0.4 ML (LOVENOX) SYR SQ SCH (20:34)
[2023-02-28] MEDS: LORazepam 1 MG (ATIVAN) TAB PO PRN (23:53)
[2023-03-01 05:12] LABS: BASOPHILS % (AUTO) 1 % (0-10); EOSINOPHILS # (AUTO) 0.1 10^3/uL (0.0-0.3); EOSINOPHILS % (AUTO) 2 % (0-10); HEMATOCRIT 47 % (40-54); LYMPHOCYTES % (AUTO) 26 % (12-44); MEAN CORPUSCULAR HEMOGLOBIN 31 pg (25-34); MEAN CORPUSCULAR HGB CONC 34 g/dL (32-36); MEAN CORPUSCULAR VOLUME 89 fL (80-99); MEAN PLATELET VOLUME 11.2 fL (9.0-12.2); MONOCYTES # (AUTO) 0.7 10^3/uL (0.0-1.0); MONOCYTES % (AUTO) 9 % (0-12); NEUTROPHILS # (AUTO) 4.7 10^3/uL (1.8-7.8); NEUTROPHILS % (AUTO) 62 % (42-75); PLATELET COUNT 199 10^3/uL (130-400); WHITE BLOOD COUNT 7.5 10^3/uL (4.3-11.0)
[2023-03-01 05:31] LABS: CALCIUM 8.9 MG/DL (8.5-10.1); CREATININE SERUM 1.31 MG/DL (0.60-1.30); MAGNESIUM 2.2 MG/DL (1.6-2.4); PHOSPHORUS 4.3 MG/DL (2.3-4.7); POTASSIUM 4.4 MMOL/L (3.6-5.0)
[2023-03-01] MEDS: MAGNESIUM 1 GM/100 ML IVPB 100 ML IV SCH (06:08)
[2023-03-01] MEDS: KCL 20 MEQ TAB (K-DUR) PO SCH ×3 (06:08→20:47)
[2023-03-01] MEDS: POTASSIUM CL 10MEQ/50ML IVPB 50 ML IV SCH (06:08)
[2023-03-01] MEDS: FUROSEMIDE 40 MG/4 ML INJ (LASIX) IVP SCH ×2 (06:45→19:21)
[2023-03-01] MEDS: MULTIVIT W/MINERALS TAB (THERAGRAN M) PO SCH (06:45)
--- NOTE | 2023-03-01 08:26 | Progress Note ---
Subjective Subjective Date Seen by Provider: March 01, 2023 Time Seen by Provider: 08:10 Pt is a 72 y/o male who is hospitalized for Alcoholic Cardiomyopathy, Chronic alcoholism with withdrawal. His sister, Maria C Collier is in the room today. She reports that her brother's DPOA is his merchandise processor. She will contact the merchandise processor today. Callum reports that he is wanting his "mits" taken off, however he has pulled out multiple IV's and pulling himself out of bed. Review of Systems General: No Chills; Fatigue, Malaise HEENT: No Head Aches; Visual Changes Pulmonary: No Dyspnea, No Cough Cardiovascular: No: Chest Pain, Palpitations Gastrointestinal: No: Nausea, Abdominal Pain Neurological: Weakness, Confusion All Other Systems Reviewed All Other Systems Reviewed: Yes Objective Exam Vital Signs Vital Signs Date Time Temp Pulse Resp B/P (MAP) Pulse Ox O2 Delivery O2 Flow Rate FiO2 03/01/23 08:00 60 14 111/72 (85) 100 Room Air 03/01/23 07:34 58 03/01/23 07:00 62 9 99/64 (76) 100 Room Air 03/01/23 06:21 86/60 (69) 03/01/23 06:02 53 16 76/54 (59) 100 03/01/23 06:00 56 18 74/47 (59) 99 03/01/23 05:00 55 16 85/55 (65) 97 03/01/23 04:15 87/60 (69) 03/01/23 04:12 98 Room Air 03/01/23 04:00 36.4 56 19 81/53 (64) 100 Room Air 03/01/23 03:32 79/48 (58) 03/01/23 03:00 55 20 77/51 (60) 95 03/01/23 02:00 55 15 71/54 (60) 100 03/01/23 01:00 67 20 94/68 (76) 99 03/01/23 01:00 67 03/01/23 00:03 36.5 70 16 94/63 (74) 98 Room Air 03/01/23 00:00 67 28 75/58 (63) 97 02/28/23 23:45 98 Room Air 02/28/23 23:00 69 20 97/64 (78) 100 02/28/23 22:00 20 4/30/23 22:00 74 34 101/73 (86) 99 Room Air 02/28/23 21:00 60 24 103/76 (93) 99 02/28/23 20:00 64 16 108/76 (87) 99 Room Air 02/28/23 20:00 98 Room Air 02/28/23 19:30 61 20 85/56 (66) 94 02/28/23 19:23 64 19 83/48 (60) 100 02/28/23 19:15 36.5 02/28/23 19:12 60 18 78/58 (62) 100 Room Air 02/28/23 19:00 56 21 76/56 (62) 100 02/28/23 19:00 56 02/28/23 18:00 60 20 108/70 (83) 100 Room Air 02/28/23 17:00 61 31 99/66 (77) 99 Room Air 02/28/23 16:00 Room Air 02/28/23 16:00 58 24 91/61 (71) 96 Room Air 02/28/23 15:00 56 22 87/62 (70) 96 Room Air 02/28/23 14:00 52 18 86/58 (67) 97 Room Air 02/28/23 13:00 62 10 90/59 (69) 100 Room Air 02/28/23 13:00 52 02/28/23 12:00 58 21 82/56 (65) 100 Room Air 02/28/23 11:31 97 Room Air 02/28/23 11:00 68 24 92/62 (72) 97 Room Air 02/28/23 10:00 61 12 100/64 (76) 100 Room Air 02/28/23 09:00 61 12 104/81 (89) 98 Room Air I & O 03/01/23 07:00 Intake Total 2776 ml Output Total 3165 ml Balance -389 ml General Appearance: No Apparent Distress, WD/WN HEENT: PERRL/EOMI Neck: Non Tender, Supple Respiratory: Chest Non Tender, Lungs Clear, No Accessory Muscle Use, No Respiratory Distress Cardiovascular: Regular Rate, Rhythm, Systolic Murmur Gastrointestinal: Normal Bowel Sounds, Non Tender, Soft Back: No CVA Tenderness Extremity: Normal Capillary Refill, No Calf Tenderness, No Pedal Edema Neurologic/Psychiatric: Alert, Other (oriented to person, not place, time) Skin: Normal Color, Warm/Dry, Other (abrasions on heels) Results Lab Laboratory Tests 02/28/23 09:53: White Blood Count 8.1, Red Blood Count 5.81H, Hemoglobin 17.8H, Hematocrit 54, Mean Corpuscular Volume 92, Mean Corpuscular Hemoglobin 31, Mean Corpuscular Hemoglobin Concent 33, Red Cell Distribution Width 14.4, Platelet Count 182, Mean Platelet Volume 11.5, Immature Granulocyte % (Auto) 0, Neutrophils (%) (Auto) 62, Lymphocytes (%) (Auto) 24, Monocytes (%) (Auto) 10, Eosinophils (%) (Auto) 2, Basophils (%) (Auto) 1, Neutrophils # (Auto) 5.0, Lymphocytes # (Auto) 2.0, Monocytes # (Auto) 0.8, Eosinophils # (Auto) 0.2, Basophils # (Auto) 0.1, Immature Granulocyte # (Auto) 0.0 03/01/23 04:29: White Blood Count 7.5, Red Blood Count 5.20, Hemoglobin 16.0, Hematocrit 47, Mean Corpuscular Volume 89, Mean Corpuscular Hemoglobin 31, Mean Corpuscular Hemoglobin Concent 34, Red Cell Distribution Width 13.8, Platelet Count 199, Mean Platelet Volume 11.2, Immature Granulocyte % (Auto) 0, Neutrophils (%) (Auto) 62, Lymphocytes (%) (Auto) 26, Monocytes (%) (Auto) 9, Eosinophils (%) (Auto) 2, Basophils (%) (Auto) 1, Neutrophils # (Auto) 4.7, Lymphocytes # (Auto) 2.0, Monocytes # (Auto) 0.7, Eosinophils # (Auto) 0.1, Basophils # (Auto) 0.0, Immature Granulocyte # (Auto) 0.0, Sodium Level 135, Potassium Level 4.4, Chloride Level 104, Carbon Dioxide Level 20L, Anion Gap 11, Blood Urea Nitrogen 31H, Creatinine 1.31H, Estimat Glomerular Filtration Rate 58, BUN/Creatinine Ratio 24, Glucose Level 122H, Calcium Level 8.9, Phosphorus Level 4.3, Magnesium Level 2.2 Microbiology 02/24/23 MRSA Screen - Final, Complete MRSA not isolated 02/24/23 Urine Culture - Final, Complete NO GROWTH 02/24/23 Blood Culture - Preliminary, Resulted No growth Assessment/Plan Assessment/Plan Admission Dx Acute systolic congestion heart failure due to cardiomyopathy from alcoholism Alcoholism History of alcohol withdrawal seizures Elevated troponin Medication noncompliance Assessment and Plan Acute systolic congestion heart failure due to cardiomyopathy from alcoholism Alcoholism History of alcohol withdrawal seizures Elevated troponin Medication noncompliance Aggressive behavior with staff Hypotension Acute systolic congestion heart failure due to cardiomyopathy from alcoholism - consult to Dr. Jang - see his note for full details - pt on amiodarone 400mg bid, [id number], entresto 24/26mg, lasix 20mg iv bid, carvedilol 3.125mg bid, EF of 15 - 20%, down significantly from 2019 echo report. - Jet will need close follow up as outpatient due to his heart failure. - his alcoholism is the primary cause of his cardiovascular compromise. Alcoholism with History of alcohol withdrawal seizures - [facility] protocol - close and aggressive monitoring - he was still intoxicated on admission to hospital. Elevated troponin - defer to cardiology - may be due to NSTEMI versus heart failure causing elevated troponin Medication noncompliance - will need close, consistent follow up. Aggressive behavior with staff improved after coming down from alcohol intoxication - pt on precedex, dosing to be decreased, patient to have haldol 0.5mg tid, continue with lowering doses of ativan as able Hypotension - -improved off of precedex Acute renal failure - improved after fluid supplementation He may benefit from inpatient rehab on DC due to his weakness. Will start PT/OT today - Last admission we had him set up for NH for SNF - but he left AMA. DVT prophylaxis with scd's and anticoag. GI Prophylaxis with ppi. PT at VERY high risk of in-hospital due to his hx of DT's and his acutely compromised cardiovascular status Admission Dx Acute systolic congestion heart failure due to cardiomyopathy from alcoholism Alcoholism History of alcohol withdrawal seizures Elevated troponin Medication noncompliance Clinical Quality Measures Admission Status Admission Dx Acute systolic congestion heart failure due to cardiomyopathy from alcoholism Alcoholism History of alcohol withdrawal seizures Elevated troponin Medication noncompliance KARLI ANTUNEZ MD March 01, 2023 08:26
[2023-03-01] MEDS: ASPIRIN E.C. 81 MG (ECOTRIN) TAB PO SCH (10:20)
[2023-03-01] MEDS: EMPAGLIFLOZIN 10 MG TABLET (JARDIANCE) PO SCH (10:21)
[2023-03-01] MEDS: AMIODARONE 200 MG (CORDARONE) TAB PO SCH ×2 (10:21→20:47)
[2023-03-01] MEDS: SPIRONOLACTONE 25 MG (ALDACTONE) TAB PO SCH (10:21)
[2023-03-01] MEDS: FOLIC ACID 1 MG TAB PO SCH (10:21)
[2023-03-01] MEDS: SACUBITRIL/VALSARTAN 24/26 MG (ENTRESTO) TABLET PO SCH ×2 (10:21→20:46)
[2023-03-01] MEDS: PANTOPRAZOLE 40 MG (PROTONIX) VIAL IV SCH (10:22)
[2023-03-01] MEDS: HALOPERIDOL 0.5 MG (HALDOL) TAB PO SCH ×3 (10:23→20:46)
--- NOTE | 2023-03-01 10:38 | Physical Therapy Evaluation ---
PT Evaluation-General Medical Diagnosis Admission Date Feb 24, 2023 at 21:27 Medical Diagnosis: CHF Onset Date: Feb 24, 2023 Therapy Diagnosis Therapy Diagnosis: generalized weakness/debility Height/Weight Height (Feet): 6 Height (Inches): 0.00 Weight (Pounds): 188 Weight (Ounces): 0.0 Precautions Precautions/Isolations: Fall Prevention, Standard Precautions Referral Physician: Jessica Reason for Referral: Evaluation/Treatment Medical History Pertinent Medical History: Alcoholism, Dementia, HTN Current History ER secondary to intoxication Reviewed History: Yes Social History Home: Single Level Current Living Status: Alone Prior Prior Level of Function SCALE: Activities may be completed with or without assistive devices. 4-Lplddobdoc-xnufznb completes the activity by him/herself with no assistance from a helper. 5-Set-up or Clean-up Assistance-helper sets up or cleans up; patient completes activity. [place] assists only prior to or following the activity. 4-Supervision or Touching Assistance-helper provides verbal cues and/or touching/steadying and/or contact guard assistance as patient completes activity. Assistance may be provided throughout the activity or intermittently. 3-Partial/Moderate Assistance-helper does LESS THAN HALF the effort. [place] lifts, holds or supports trunk or limbs, but provides less than half the effort. 2-Substantial/Maximal Assistance-helper does MORE THAN HALF the effort. [place] lifts or holds trunk or limbs and provides more than half the effort. 7-Snpakngsi-hpgjun does ALL the effort. Patient does none of the effort to complete the activity. Or, the assistance of 2 or more helpers is required for the patient to complete the activity. If activity was not attempted, code reason: 7-Patient Refused. 9-Not Applicable-not attempted and the patient did not perform the activity before the current illness, exacerbation or injury. 10-Not Attempted due to Environmental Limitations-(lack of equipment, weather restraints, etc.). 88-Not Attempted due to Medical Conditions or Safety Concerns. Bed Mobility: 6 Transfers (B,C,W/C): 6 Gait: 6 Indoor Mobility (Ambulation): Independent Prior Devices Use: None PT Evaluation-Current Subjective Patient very confused/agrees to therapy. Objective Patient Orientation: Person Attachments: Waddell Catheter ROM/Strength ROM Lower Extremities bilateral LE WFL Strength Lower Extremities 3-/5 grossly bilateral LE all planes Integumentary/Posture Bladder Incontinence: Waddell Cath Posture trunk flexed posture in stand Neuromuscular (Tone, Coordination, Reflexes) severely diminished coordination Sensory Vision: Functional Hearing: Functional Transfers Lying to Sitting/Side of Bed(Q: 3 Sit to Stand (QC): 2 Chair/Oee-yq-Fipxf Xfer(QC): 2 Gait Mode of Locomotion: Walk Anticipated Mode of Locomotion: Walk Walk 10 feet (QC): 2 Walk 50 ft with 2 Turns(QC): 2 Walk 150 ft (QC): 88 Distance: 50' Gait Assistive Device: FWW Comments/Gait Description extended UE's with FWW use/shuffle gait sequence with decreased maximiliano Balance Sitting Static: Fair Sitting Dynamic: Poor Standing Static: Poor Standing Dynamic: Poor Assessment/Needs Patient will benefit from skilled PT to address functional strength and mobility to improve current LOF. Patient is currently max assist with all mobility and has bed and chair alarm activated for his safety. Patient is very confused and has difficulty remaining on task and follow simple direction. Rehab Potential: Guarded PT Cream Hauler Goals Fci Goals PT [facility]ci Goals Time Frame: March 20, 2023 Roll Left & Right (QC): 4 Sit to Lying (QC): 4 Lying-Sitting on Side/Bed(QC): 4 Sit to Stand (QC): 4 Chair/Jci-np-Rhfdw Xfer(QC): 4 Toilet Transfer (QC): 4 Walk 10 feet (QC): 4 Walk 50ft with 2 Turns (QC): 4 Walk 150 ft (QC): 4 PT Plan Problem List Problem List: Activity Tolerance, Functional Strength, Safety, Balance, Gait, Transfer, Bed Mobility Treatment/Plan Treatment Plan: Continue Plan of Care Treatment Plan: Bed Mobility, Education, Functional Activity Rick, Functional Strength, Gait, Safety, Therapeutic Exercise, Transfers Treatment Duration: March 20, 2023 Frequency: 6 times per week Estimated Hrs Per Day: .25 hour per day Time Time In: 910 Time Out: 920 DATE: March 01, 2023 Total Billed Treatment Time: 10 Total Billed Treatment 1 visit EVMod 10 min LEE GAO PT March 01, 2023 10:37
--- NOTE | 2023-03-01 10:59 | Occupational Therapy Eval ---
OT Evaluation-General/PLF Medical Diagnosis Admission Date Feb 24, 2023 at 21:27 Medical Diagnosis: CHF Onset Date: Feb 24, 2023 Therapy Diagnosis Therapy Diagnosis: weakness, impaired coordination Height/Weight Height (Feet): 6 Height (Inches): 0.00 Weight (Pounds): 188 Weight (Ounces): 0.0 Precautions Precautions/Isolations: Fall Prevention, Standard Precautions Safety Interventions: Bed Exit Alarm Weight Bear Status Weight Bearing Restriction: Weight Bearing/Tolerated Referral Physician: Jessica Referral Reason: Activity Tolerance, Self Care, Evaluation/Treatment, Strengthening/ROM Medical History Pertinent Medical History: Alcoholism, Dementia, HTN Reviewed History: Yes Social History Home: Single Level Current Living Status: Alone Inconsistent report from patient for events, orientation and socialization, slurred and mumbled communication ADL-Prior Level of Function SCALE: Activities may be completed with or without assistive devices. 2-Jpmqvlqnvc-iqsuyzf completes the activity by him/herself with no assistance from a helper. 5-Set-up or Clean-up Assistance-helper sets up or cleans up; patient completes activity. [place] assists only prior to or following the activity. 4-Supervision or Touching Assistance-helper provides verbal cues and/or touchin g/steadying and/or contact guard assistance as patient completes activity. Assistance may be provided throughout the activity or intermittently. 3-Partial/Moderate Assistance-helper does LESS THAN HALF the effort. [place] lifts, holds or supports trunk or limbs, but provides less than half the effort. 2-Substantial/Maximal Assistance-helper does MORE THAN HALF the effort. [place] lifts or holds trunk or limbs and provides more than half the effort. 3-Yseciqxlv-febupx does ALL the effort. Patient does none of the effort to complete the activity. Or, the assistance of 2 or more helpers is required for the patient to complete the activity. If activity was not attempted, code reason: 7-Patient Refused. 9-Not Applicable-not attempted and the patient did not perform the activity before the current illness, exacerbation or injury. 10-Not Attempted due to Environmental Limitations-(lack of equipment, weather restraints, etc.). 88-Not Attempted due to Medical Conditions or Safety Concerns. Self Care: Independent Functional Cognition: Independent Drive Self: No OT Current Status Subjective Agreeable to therapy, required repeat instructions and education for basurto process Mental Status/Objective Attachments: Basurto Catheter, IV, Telemetry Current Upper Extremity ROM observed WFLS Upper Extremity Coordination GMC/FMC impaired, questionable long history of decreased coordination Upper Extremity Strength +3/5 grossly ADL-Treatment Eating (QC): 5 Oral Hygiene (QC): 4 Shower/Bathe Self (QC): 7 Upper Body Dressing (QC): 3 Lower Body Dressing (QC): 1 On/Off Footwear (QC): 2 Toileting Hygiene (QC): 1 Additional person recommend for LB ADLS d/t poor balance, poor command following, impaired statc and dynamic standing balance, LE weakness and inconsistent behavior and verbal responses Education OT Patient Education: Disease process, Exercise program, Modified ADL techniques, Progress toward Goal/Update tx plan, Purpose of tx/functional activities, Reviewed precautions, Rehab process, Safety issues, Transfer techniques Teaching Recipient: Patient Teaching Methods: Demonstration, Discussion Response to Teaching: Reinforcement Needed OT Fpc Goals [employer] Inspector Goals Toileting Hygiene (QC): 4 Shower/Bathe Self (QC): 4 Upper Body Dressing (QC): 4 Lower Body Dressing (QC): 4 On/Off Footwear (QC): 4 1=Demonstrate adherence to instructed precautions during ADL tasks. 2=Patient will verbalize/demonstrate understanding of assistive devices/modifications for ADL. 3=Patient will improve strength/tolerance for activity to enable patient to perform ADL's. OT Education/Plan Problem List/Assessment Assessment: Decreased Activ Tolerance, Decreased Safety Aware, Decreased UE Strength, Impaired Cognition, Impaired Coordination, Impaired Funct Balance, Impaired Self-Care Skills Discharge Recommendations Plan/Recommendations: Continue POC Treatment Plan/Plan of Care Patient would benefit from OT for education, treatment and training to promote independence in ADL's, mobility, safety and/or upper extremity function for ADL's. Plan of Care: ADL Retraining, Functional Mobility, Group Exercise/Act as Ind, UE Funct Exercise/Act Treatment Duration: March 06, 2023 Frequency: 3 times per week (3-5 times per week) Estimated Hrs Per Day: .25 hour per day Rehab Potential: Guarded Time Start Time: 09:10 Stop Time: 09:21 DATE: March 01, 2023 Total Time Billed (hr/min): 11 Billed Treatment Time EVM 11 min ALONZO DAVIS OT March 01, 2023 10:59
--- NOTE | 2023-03-01 11:59 | Tele-ICU Progress Note ---
Subjective Date Seen by a Provider: March 01, 2023 Time Seen by a Provider: 11:59 Subjective/Events-last exam (Tele-ICU Physician , Progress Note ) Service provided via interactive audio and video telecommunications E-CARE system to a patient admitted to ICU bed in [facility]. Patient is seen today due to persistent need of ICU care Available chart/ vitals / labs / Images reviewed Video assessment done using teleICU camera, rest of exam as per RN Discussed with RN Events overnight : Afebrile hemodynamically stable Respiratory - RA I/O =+ Drips: NS50 Pressors- no Hospital course: (02/24) 72yM Admit w/Alcohol Intox in active alcoholic, ACS chf cardiomyopathy 02/25/23- ECHO EF - 15-20% 02/27- CIWA ativan/ precedex 0.1 03/01 - off precedex, confused A/P ETON abuse / "drinking binge" for the last 3 weeks; - CIWA - was getting ativan , reportedly not working , started on precedex - off precedex 03/01, confused - vitamins Elevated troponin - NSTEMI vs Type 2 CT secondary to acute CHF/severe CM - as per cards , ASA Acute systolic CHF with severe cardiomyopathy -ECHO EF - 15-20% - as per cards - Lasix, BB, Entresto, aldactone- as per cards frequent ventricular ectopy - on amio po as per cards CATHERINE - with diuresis - decreased dose as per cards - follow on lasix 20 and spirinolactone - on NS 50 - as per card PT , up to the chair ? rehab vs placemnt Lines : periph , (Central Line Necessity Reviewed) Waddell: + OG: Nutrition: po Analgesia: Anxiety/ delirium VTE Prophylaxis: pat 40 Stress Ulcer Prophylaxis: na Plans in collaboration with bedside consultants and IM MDs. Discussed with RN to reach out if any questions or concerns Case and care daily discussed on multidisciplinary rounds ( RN, PharmD, Hydrography Teacher , Respiratory Therapy, social worker psychiatric ) A total of _15 minutes of critical care time was devoted to this patient today, required to treat and/or prevent further deterioration of critical care condition ( as above ) . I am remotely monitoring this patient from another state. I am unable to do the bedside exam, and history/physical and pertinent information is taken from other notes in the computer and bedside staff. Sepsis Event Evaluation Height, Weight, BMI Height: 6'0.00" Weight: 188lbs. 0.0oz. [id number]; 24.36 BMI Method:Stated Exam Exam Patient acknowledged, consented, and participated in this virtual visit which was conducted using real time audio/video Vital Signs Date Time Temp Pulse Resp B/P (MAP) Pulse Ox O2 Delivery O2 Flow Rate FiO2 03/01/23 11:00 62 20 111/67 (82) 100 Room Air 03/01/23 10:00 71 18 97/86 (90) 100 Room Air 03/01/23 09:00 60 18 102/55 (71) 96 Room Air 03/01/23 08:00 35.9 03/01/23 08:00 98 Room Air 03/01/23 08:00 60 14 111/72 (85) 100 Room Air 03/01/23 07:34 58 03/01/23 07:00 62 9 99/64 (76) 100 Room Air 03/01/23 06:21 86/60 (69) 03/01/23 06:02 53 16 76/54 (59) 100 03/01/23 06:00 56 18 74/47 (59) 99 03/01/23 05:00 55 16 85/55 (65) 97 03/01/23 04:15 87/60 (69) 03/01/23 04:12 98 Room Air 03/01/23 04:00 36.4 56 19 81/53 (64) 100 Room Air 03/01/23 03:32 79/48 (58) 03/01/23 03:00 55 20 77/51 (60) 95 03/01/23 02:00 55 15 71/54 (60) 100 03/01/23 01:00 67 20 94/68 (76) 99 03/01/23 01:00 67 03/01/23 00:03 36.5 70 16 94/63 (74) 98 Room Air 03/01/23 00:00 67 28 75/58 (63) 97 02/28/23 23:45 98 Room Air 02/28/23 23:00 69 20 97/64 (78) 100 02/28/23 22:00 20 02/28/23 22:00 74 34 101/73 (86) 99 Room Air 02/28/23 21:00 60 24 103/76 (93) 99 02/28/23 20:00 64 16 108/76 (87) 99 Room Air 02/28/23 20:00 98 Room Air 02/28/23 19:30 61 20 85/56 (66) 94 02/28/23 19:23 64 19 83/48 (60) 100 02/28/23 19:15 36.5 02/28/23 19:12 60 18 78/58 (62) 100 Room Air 02/28/23 19:00 56 21 76/56 (62) 100 02/28/23 19:00 56 02/28/23 18:00 60 20 108/70 (83) 100 Room Air 02/28/23 17:00 61 31 99/66 (77) 99 Room Air 02/28/23 16:00 Room Air 02/28/23 16:00 58 24 91/61 (71) 96 Room Air 02/28/23 15:00 56 22 87/62 (70) 96 Room Air 02/28/23 14:00 52 18 86/58 (67) 97 Room Air 02/28/23 13:00 62 10 90/59 (69) 100 Room Air 02/28/23 13:00 52 02/28/23 12:00 58 21 82/56 (65) 100 Room Air I & O 03/01/23 07:00 Intake Total 2776 ml Output Total 3165 ml Balance -389 ml Height & Weight Height: 6'0.00" Weight: 188lbs. 0.0oz. [id number]; 24.36 BMI Method:Stated General Appearance: No Apparent Distress, WD/WN HEENT: PERRL/EOMI Neck: Non Tender, Supple Respiratory: Chest Non Tender, Lungs Clear, No Accessory Muscle Use, No Respiratory Distress Cardiovascular: Regular Rate, Rhythm, Systolic Murmur Capillary Refill: Less Than 3 Seconds Extremity: Normal Capillary Refill, No Calf Tenderness, No Pedal Edema Neurologic/Psychiatric: Alert, Other (oriented to person, not place, time) Skin: Normal Color, Warm/Dry, Other (abrasions on heels) Results Lab Laboratory Tests 02/28/23 04:19 02/28/23 09:53 03/01/23 04:29 Assessment/Plan Assessment/Plan 1 TAMEKA GALLAGHER MD March 01, 2023 11:59
[2023-03-01] MEDS: LORazepam INJ 2 MG/ML (ATIVAN) VIAL IV PRN ×3 (12:00→15:59)
--- NOTE | 2023-03-01 19:07 | Progress Note - Cardiology ---
Cardiology SOAP Progress Note Subjective: more responsive today denies cp or palp or syncope does not report shortness of breath at rest no n/v/d gen weakness denies focal weakness Objective: I&O/Vital Signs 03/01/23 03/01/23 03/01/23 03/01/23 07:34 08:00 08:00 08:00 Temp 35.9 Pulse 58 60 Resp 14 B/P (MAP) 111/72 (85) Pulse Ox 100 98 O2 Delivery Room Air Room Air 03/01/23 03/01/23 03/01/23 03/01/23 09:00 10:00 11:00 12:00 Pulse 60 71 62 63 Resp 18 18 20 40 B/P (MAP) 102/55 (71) 97/86 (90) 111/67 (82) 107/63 (78) Pulse Ox 96 100 100 87 O2 Delivery Room Air Room Air Room Air Room Air 03/01/23 03/01/23 03/01/23 03/01/23 12:00 12:00 12:33 13:00 Temp 36.1 Pulse 75 68 Resp 12 B/P (MAP) 100/41 (60) Pulse Ox 98 95 O2 Delivery Room Air Room Air 03/01/23 03/01/23 03/01/23 03/01/23 14:00 14:45 15:00 15:15 Pulse 71 69 64 66 Resp 26 19 14 14 B/P (MAP) 101/69 (80) 111/72 (85) 103/68 (80) 98/88 (91) Pulse Ox 100 98 98 O2 Delivery Room Air Room Air Room Air Room Air 03/01/23 03/01/23 03/01/23 03/01/23 16:00 16:00 16:00 17:15 Temp 36.2 Pulse 61 65 Resp 14 12 B/P (MAP) 100/60 (73) 90/60 (70) Pulse Ox 97 98 100 O2 Delivery Room Air Room Air Room Air 03/01/23 18:00 Pulse 57 Resp 11 B/P (MAP) 78/58 (65) Pulse Ox 100 O2 Delivery Room Air 03/01/23 00:00 Intake Total 1670 ml Output Total 1950 ml Balance -280 ml Weight (Pounds): 188 Weight (Ounces): 0.0 Weight (Calculated Kilograms): [id number] Constitutional: well-developed, well-nourished, other (verbally unresponsive) Respiratory: chest expansion is symmetric, chest is bilaterally symmetric, other Cardiovascular: regular rate-rhythm, S1 and S2, systolic murmur Gastrointestional: soft, audible bowel sounds Extremities: no lower extremity edema bilateral Neurologic/Psychiatric: oriented x 3, other Skin: No rash on exposed areas, No ulcerations on exposed areas Results/Procedures: Labs Laboratory Tests 03/01/23 04:29: White Blood Count 7.5, Red Blood Count 5.20, Hemoglobin 16.0, Hematocrit 47, Mean Corpuscular Volume 89, Mean Corpuscular Hemoglobin 31, Mean Corpuscular Hemoglobin Concent 34, Red Cell Distribution Width 13.8, Platelet Count 199, Mean Platelet Volume 11.2, Immature Granulocyte % (Auto) 0, Neutrophils (%) (Auto) 62, Lymphocytes (%) (Auto) 26, Monocytes (%) (Auto) 9, Eosinophils (%) (Auto) 2, Basophils (%) (Auto) 1, Neutrophils # (Auto) 4.7, Lymphocytes # (Auto) 2.0, Monocytes # (Auto) 0.7, Eosinophils # (Auto) 0.1, Basophils # (Auto) 0.0, Immature Granulocyte # (Auto) 0.0, Sodium Level 135, Potassium Level 4.4, Chloride Level 104, Carbon Dioxide Level 20L, Anion Gap 11, Blood Urea Nitrogen 31H, Creatinine 1.31H, Estimat Glomerular Filtration Rate 58, BUN/Creatinine Ratio 24, Glucose Level 122H, Calcium Level 8.9, Phosphorus Level 4.3, Magnesium Level 2.2 Microbiology 02/24/23 MRSA Screen - Final, Complete MRSA not isolated 02/24/23 Urine Culture - Final, Complete NO GROWTH 02/24/23 Blood Culture - Preliminary, Resulted No growth Laboratory Tests 02/28/23 04:19 02/28/23 09:53 03/01/23 04:29 A/P: Assessment: Confusion - likely alcohol withdrawal - management per Medical services Ac renal failure - likely volume depletion due to diuretics to treat heart failure - much improved on 02/28/23 after iv fluids and reduction in diuretics Acute systolic CHF - Echocardiiogram of 12-30-[address] Griffin showed LVEF 55-65%; concentric hypertrophy; grade 1 diastolic dysfunction. Mild to mod AoR. PASP 40 mmHg Frequent ventricular ectopy Severe cadiomyopathy - Echo of 02-25-23: The cavity size is normal. Wall thickness is normal. Systolic function is severely reduced. The estimated ejection fraction is 15-20%. Severe diffuse hypokinesis. Features are consistent with a pseudonormal left v entricular filling pattern, with concomitant abnormal relaxation and increased filling pressure (grade 2 diastolic dysfunction). Aortic valve: There is trivial regurgitation. Pulmonary arteries: Systolic pressure is in the range of 30 mm Hg to 35 mm Hg. Elevated troponin - NSTEMI vs Type 2 CT secondary to acute CHF/severe CM H/O abnormal MPI - MPI of 01-05-[address] Griffin: Pharmacological stress test was negative for ischemia. Normal LV function with no wall motion abnormalities. Possible ischemia in the apex. Elevated TID. Coronary angiography is recommended (pt refused at that time per Dr. Griffin's note) Heavy ETOH abuse - 3 pints Vodka/day HTN Non-compliant with medications/recs/follow up Plan: * Complex management * HF treatment as tolerated by bp and renal function * Management of alcohol withdrawal by the Hosp svce * Continue amiodarone which has resulted in control of vent arrhythhmia * Monitor labs ALEX CARROLL MD FACP FAC CCDS March 01, 2023 19:07
[2023-03-01] MEDS: LORazepam 1 MG (ATIVAN) TAB PO PRN (20:46)
[2023-03-01] MEDS: ENOXAPARIN 40 MG/0.4 ML (LOVENOX) SYR SQ SCH (20:47)
[2023-03-02 04:42] LABS: BASOPHILS % (AUTO) 1 % (0-10); EOSINOPHILS # (AUTO) 0.1 10^3/uL (0.0-0.3); EOSINOPHILS % (AUTO) 1 % (0-10); HEMATOCRIT 47 % (40-54); HEMOGLOBIN 15.9 g/dL (13.3-17.7); LYMPHOCYTES # (AUTO) 1.8 10^3/uL (1.0-4.0); LYMPHOCYTES % (AUTO) 26 % (12-44); MEAN CORPUSCULAR HEMOGLOBIN 31 pg (25-34); MEAN CORPUSCULAR HGB CONC 34 g/dL (32-36); MEAN CORPUSCULAR VOLUME 90 fL (80-99); MEAN PLATELET VOLUME 11.5 fL (9.0-12.2); MONOCYTES # (AUTO) 0.7 10^3/uL (0.0-1.0); MONOCYTES % (AUTO) 11 % (0-12); NEUTROPHILS # (AUTO) 4.1 10^3/uL (1.8-7.8); NEUTROPHILS % (AUTO) 61 % (42-75); PLATELET COUNT 167 10^3/uL (130-400); WHITE BLOOD COUNT 6.8 10^3/uL (4.3-11.0)
[2023-03-02 05:21] LABS: CALCIUM 9.1 MG/DL (8.5-10.1); CREATININE SERUM 1.37 MG/DL (0.60-1.30); MAGNESIUM 2.3 MG/DL (1.6-2.4); PHOSPHORUS 4.6 MG/DL (2.3-4.7); POTASSIUM 4.5 MMOL/L (3.6-5.0)
[2023-03-02] MEDS: MAGNESIUM 1 GM/100 ML IVPB 100 ML IV SCH (06:25)
[2023-03-02] MEDS: POTASSIUM CL 10MEQ/50ML IVPB 50 ML IV SCH (06:25)
[2023-03-02] MEDS: KCL 20 MEQ TAB (K-DUR) PO SCH ×3 (06:26→21:12)
[2023-03-02] MEDS: HALOPERIDOL 0.5 MG (HALDOL) TAB PO SCH ×3 (13:00→21:12)
--- NOTE | 2023-03-02 16:36 | Cardiology Progress Note ---
Subjective Date Seen by Provider: March 02, 2023 Time Seen by Provider: 08:00 Subjective/Events-last exam Patient was seen at bedside, he was sedated, sleeping. Objective-Cardiology Exam Last Set of Vital Signs Vital Signs 03/02/23 03/02/23 03/02/23 04:00 04:16 06:00 Temp 36.4 Pulse 57 Resp 20 B/P (MAP) 91/61 (72) Pulse Ox 98 O2 Delivery Room Air I&O Intake and Output 03/02/23 00:00 Intake Total 1890 ml Output Total 3090 ml Balance -1200 ml Intake Oral 1890 ml Output Urine Total 3090 ml General: No Acute Distress HEENT: Atraumatic Neck: Supple Lungs: Clear to Auscultation, Normal Air Movement Heart: Regular Rate, Normal S1, Normal S2 Skin: No Rashes Results Lab Laboratory Tests 03/02/23 04:22 A/P-Cardiology Admission Diagnosis Change in mental status Non-ST elevation myocardial infarction Congestive heart failure, acute on chronic left ventricular systolic dysfunction, nonischemic cardiomyopathy Alcoholism Assessment/Plan Confusion, currently sedated - likely alcohol withdrawal - management per Medical services Ac renal failure - likely volume depletion due to diuretics to treat heart failure - much improved on 02/28/23 after iv fluids and reduction in diuretics Acute systolic CHF - Echocardiiogram of 12-30-[address] Griffin showed LVEF 55-65%; concentric hypertrophy; grade 1 diastolic dysfunction. Mild to mod AoR. PASP 40 mmHg Frequent ventricular ectopy Severe cadiomyopathy - Echo of 02-25-23: The cavity size is normal. Wall thickness is normal. Systolic function is severely reduced. The estimated ejection fraction is 15-20%. Severe diffuse hypokinesis. Features are consistent with a pseudonormal left ventricular filling pattern, with concomitant abnormal relaxation and increased filling pressure (grade 2 diastolic dysfunction). Aortic valve: There is trivial regurgitation. Pulmonary arteries: Systolic pressure is in the range of 30 mm Hg to 35 mm Hg. Elevated troponin - NSTEMI vs Type 2 ND secondary to acute CHF/severe CM H/O abnormal MPI - MPI of 01-05-[address] Griffin: Pharmacological stress test was negative for ischemia. Normal LV function with no wall motion abnormalities. Possible ischemia in the apex. Elevated TID. Coronary angiography is recommended (pt r efused at that time per Dr. Griffin's note) Heavy ETOH abuse - 3 pints Vodka/day HTN Non-compliant with medications/recs/follow up KENNY KNUTSON MD March 02, 2023 16:36
[2023-03-02] MEDS: FUROSEMIDE 40 MG/4 ML INJ (LASIX) IVP SCH ×2 (17:00→18:08)
[2023-03-02] MEDS: PANTOPRAZOLE 40 MG (PROTONIX) VIAL IV SCH (18:08)
[2023-03-02] MEDS: AMIODARONE 200 MG (CORDARONE) TAB PO SCH ×2 (18:08→21:12)
[2023-03-02] MEDS: MULTIVIT W/MINERALS TAB (THERAGRAN M) PO SCH (18:08)
[2023-03-02] MEDS: SPIRONOLACTONE 25 MG (ALDACTONE) TAB PO SCH (18:08)
[2023-03-02] MEDS: SACUBITRIL/VALSARTAN 24/26 MG (ENTRESTO) TABLET PO SCH ×2 (18:09→21:12)
[2023-03-02] MEDS: ASPIRIN E.C. 81 MG (ECOTRIN) TAB PO SCH (18:09)
[2023-03-02] MEDS: EMPAGLIFLOZIN 10 MG TABLET (JARDIANCE) PO SCH (18:09)
[2023-03-02] MEDS: FOLIC ACID 1 MG TAB PO SCH (18:09)
[2023-03-02] MEDS: ENOXAPARIN 40 MG/0.4 ML (LOVENOX) SYR SQ SCH (21:12)
[2023-03-02] MEDS: LORazepam INJ 2 MG/ML (ATIVAN) VIAL IV PRN (23:05)
[2023-03-02 23:09] VITALS: BP 95/57
[2023-03-03 01:34] VITALS: BP 107/61
[2023-03-03] MEDS: LORazepam INJ 2 MG/ML (ATIVAN) VIAL IV PRN ×3 (01:42→22:23)
[2023-03-03 04:00] VITALS: BP 102/65
[2023-03-03 06:56] LABS: BASOPHILS % (AUTO) 0 % (0-10); EOSINOPHILS # (AUTO) 0.1 10^3/uL (0.0-0.3); EOSINOPHILS % (AUTO) 2 % (0-10); HEMATOCRIT 47 % (40-54); HEMOGLOBIN 16.1 g/dL (13.3-17.7); LYMPHOCYTES # (AUTO) 1.8 10^3/uL (1.0-4.0); LYMPHOCYTES % (AUTO) 32 % (12-44); MEAN CORPUSCULAR HEMOGLOBIN 31 pg (25-34); MEAN CORPUSCULAR HGB CONC 34 g/dL (32-36); MEAN CORPUSCULAR VOLUME 90 fL (80-99); MEAN PLATELET VOLUME 11.4 fL (9.0-12.2); MONOCYTES # (AUTO) 0.6 10^3/uL (0.0-1.0); MONOCYTES % (AUTO) 10 % (0-12); NEUTROPHILS # (AUTO) 3.1 10^3/uL (1.8-7.8); NEUTROPHILS % (AUTO) 56 % (42-75); PLATELET COUNT 150 10^3/uL (130-400); WHITE BLOOD COUNT 5.5 10^3/uL (4.3-11.0)
[2023-03-03 07:20] LABS: POTASSIUM 4.4 MMOL/L (3.6-5.0)
[2023-03-03 07:21] LABS: CALCIUM 9.3 MG/DL (8.5-10.1)
[2023-03-03 07:26] LABS: CREATININE SERUM 1.5 MG/DL (0.60-1.30); PHOSPHORUS 4.5 MG/DL (2.3-4.7)
[2023-03-03 07:28] LABS: MAGNESIUM 2.3 MG/DL (1.6-2.4)
[2023-03-03 08:00] VITALS: BP 102/64
[2023-03-03] MEDS: MAGNESIUM 1 GM/100 ML IVPB 100 ML IV SCH (09:00)
[2023-03-03] MEDS: SACUBITRIL/VALSARTAN 24/26 MG (ENTRESTO) TABLET PO SCH ×2 (09:00→19:34)
[2023-03-03] MEDS: FUROSEMIDE 40 MG/4 ML INJ (LASIX) IVP SCH ×2 (09:00→16:15)
[2023-03-03] MEDS: SPIRONOLACTONE 25 MG (ALDACTONE) TAB PO SCH (09:00)
[2023-03-03] MEDS: ASPIRIN E.C. 81 MG (ECOTRIN) TAB PO SCH (09:00)
[2023-03-03] MEDS: PANTOPRAZOLE 40 MG (PROTONIX) VIAL IV SCH (09:00)
[2023-03-03] MEDS: HALOPERIDOL 0.5 MG (HALDOL) TAB PO SCH ×3 (09:00→19:34)
[2023-03-03] MEDS: MULTIVIT W/MINERALS TAB (THERAGRAN M) PO SCH (09:00)
[2023-03-03] MEDS: KCL 20 MEQ TAB (K-DUR) PO SCH ×3 (09:00→19:34)
[2023-03-03] MEDS: POTASSIUM CL 10MEQ/50ML IVPB 50 ML IV SCH (09:00)
[2023-03-03] MEDS: FOLIC ACID 1 MG TAB PO SCH (09:00)
[2023-03-03] MEDS: EMPAGLIFLOZIN 10 MG TABLET (JARDIANCE) PO SCH (09:00)
[2023-03-03 11:45] VITALS: BP 90/54
--- NOTE | 2023-03-03 12:12 | Progress Note - Cardiology ---
Cardiology SOAP Progress Note Subjective: No cp or palp or syncope Gen weakness and malaise No focal weakness No n/v/d Objective: I&O/Vital Signs 03/03/23 03/03/23 03/03/23 01:34 04:00 08:00 Temp 36.1 36.2 Pulse 65 66 Resp 18 18 B/P (MAP) 107/61 (76) 102/65 (77) Pulse Ox 95 95 O2 Delivery Room Air 03/03/23 00:00 Intake Total 750 ml Output Total 970 ml Balance -220 ml Weight (Pounds): 188 Weight (Ounces): 0.0 Weight (Calculated Kilograms): 85.589986 Constitutional: well-developed, well-nourished, other (confused but responsive and able to answer most questions) Respiratory: chest expansion is symmetric, chest is bilaterally symmetric, other Cardiovascular: regular rate-rhythm, S1 and S2, systolic murmur Gastrointestional: soft, audible bowel sounds Extremities: no lower extremity edema bilateral Neurologic/Psychiatric: oriented x 3, other Skin: No rash on exposed areas, No ulcerations on exposed areas Results/Procedures: Labs Laboratory Tests 03/03/23 06:21: White Blood Count 5.5, Red Blood Count 5.21, Hemoglobin 16.1, Hematocrit 47, M shayla Corpuscular Volume 90, Mean Corpuscular Hemoglobin 31, Mean Corpuscular Hemoglobin Concent 34, Red Cell Distribution Width 13.7, Platelet Count 150, Mean Platelet Volume 11.4, Immature Granulocyte % (Auto) 0, Neutrophils (%) (Auto) 56, Lymphocytes (%) (Auto) 32, Monocytes (%) (Auto) 10, Eosinophils (%) (Auto) 2, Basophils (%) (Auto) 0, Neutrophils # (Auto) 3.1, Lymphocytes # (Auto) 1.8, Monocytes # (Auto) 0.6, Eosinophils # (Auto) 0.1, Basophils # (Auto) 0.0, Immature Granulocyte # (Auto) 0.0, Sodium Level 133L, Potassium Level 4.4, Chloride Level 102, Carbon Dioxide Level 19L, Anion Gap 12, Blood Urea Nitrogen 34H, Creatinine 1.50H, Estimat Glomerular Filtration Rate 49, BUN/Creatinine Ratio 23, Glucose Level 190H, Calcium Level 9.3, Phosphorus Level 4.5, Magnesium Level 2.3 Microbiology 02/24/23 MRSA Screen - Final, Complete MRSA not isolated 02/24/23 Urine Culture - Final, Complete NO GROWTH 02/24/23 Blood Culture - Preliminary, Resulted No growth Laboratory Tests 03/02/23 04:22 03/03/23 06:21 A/P: Assessment: Confusion - likely alcohol withdrawal - management per Medical services Ac renal failure - likely volume depletion due to diuretics to treat heart failure - much improved on 02/28/23 after iv fluids and reduction in diuretics Acute systolic CHF - Echocardiiogram of 12-30-[address] Griffin showed LVEF 55-65%; concentric hypertrophy; grade 1 diastolic dysfunction. Mild to mod AoR. PASP 40 mmHg Frequent ventricular ectopy Severe cadiomyopathy - Echo of 02-25-23: The cavity size is normal. Wall thickness is normal. Systolic function is severely reduced. The estimated ejection fraction is 15-20%. Severe diffuse hypokinesis. Features are consistent with a pseudonormal left ventricular filling pattern, with concomitant abnormal relaxation and increased filling pressure (grade 2 diastolic dysfunction). Aortic valve: There is trivial regurgitation. Pulmonary arteries: Systolic pressure is in the range of 30 mm Hg to 35 mm Hg. Elevated troponin - NSTEMI vs Type 2 CA secondary to acute CHF/severe CM H/O abnormal MPI - MPI of 01-05-[address] Griffin: Pharmacological stress test was negative for i schemia. Normal LV function with no wall motion abnormalities. Possible ischemia in the apex. Elevated TID. Coronary angiography is recommended (pt refused at that time per Dr. Griffin's note) Heavy ETOH abuse - 3 pints Vodka/day HTN Non-compliant with medications/recs/follow up Plan: * Complex management * HF treatment as tolerated by bp and renal function * Management of alcohol withdrawal by the Hosp ce * Continue amiodarone which has resulted in control of vent arrhythhmia. Change to 400 mg daily * PT/OT * Monitor labs ALEX CARROLL MD FACP FAC CCDS March 03, 2023 12:12
--- NOTE | 2023-03-03 12:45 | Physical Therapy Daily Note ---
PT Daily Note-Current Subjective Patient lying supine in bed upon PT arrival, agreeable to treatment. Reports no pain at this time. He is maximally fixated on his cell phone, his blue jeans and his sister Maria C. Pain Section J - Health Conditions 1. Rarely or not at all 2. Occasionally 3. Frequently 4. Almost constantly 8. Unable to answer Pain Effect on Sleep: 1 Pain Interference with Therapy: 1 Pain Interference w/Day-to-Day: 1 Mental Status Patient Orientation: Person Transfers SCALE: Activities may be completed with or without assistive devices. 8-Ojaktacqme-hceivxg completes the activity by him/herself with no assistance from a helper. 5-Set-up or Clean-up Assistance-helper sets up or cleans up; patient completes activity. Gilman assists only prior to or following the activity. 4-Supervision or Touching Assistance-helper provides verbal cues and/or touching/steadying and/or contact guard assistance as patient completes activity. Assistance may be provided throughout the activity or intermittently. 3-Partial/Moderate Assistance-helper does LESS THAN HALF the effort. Gilman lifts, holds or supports trunk or limbs, but provides less than half the effort. 2-Substantial/Maximal Assistance-helper does MORE THAN HALF the effort. Gilman lifts or holds trunk or limbs and provides more than half the effort. 6-Wckflqzjr-gojtdy does ALL the effort. Patient does none of the effort to complete the activity. Or, the assistance of 2 or more helpers is required for the patient to complete the activity. If activity was not attempted, code reason: 7-Patient Refused. 9-Not Applicable-not attempted and the patient did not perform the activity before the current illness, exacerbation or injury. 10-Not Attempted due to Environmental Limitations-(lack of equipment, weather restraints, etc.). 88-Not Attempted due to Medical Conditions or Safety Concerns. Roll Left & Right (QC): 4 Sit to Lying (QC): 4 Lying to Sitting/Side of Bed(Q: 4 Sit to Stand (QC): 4 Gait Training Does the Patient Walk?: Yes Distance: 46 feet Walk 10 feet (QC): 4 Gait Persons Needed: 1 Gait Assistive Device: FWW Assessment Current Status: Fair Progress Patient tolerated treatment well. He performs all bed mobility and transfers with CGA to Min A. Patient ambulates 46 feet with FWW, with CGA and verbal cues for posture, safety, progression and control of FWW. Patient in bed post treatment with all needs met, nursing notified, call light in reach and bed alarm activated. PT Stove Cleaner Goals Stove Cleaner Goals PT Stove Cleaner Goals Time Frame: March 20, 2023 Roll Left & Right (QC): 4 Sit to Lying (QC): 4 Lying-Sitting on Side/Bed(QC): 4 Sit to Stand (QC): 4 Chair/Htu-gr-Efawx Xfer(QC): 4 Toilet Transfer (QC): 4 Walk 10 feet (QC): 4 Walk 50ft with 2 Turns (QC): 4 Walk 150 ft (QC): 4 PT Plan Treatment/Plan Treatment Plan: Continue Plan of Care Treatment Plan: Bed Mobility, Education, Functional Activity Rick, Functional Strength, Gait, Safety, Therapeutic Exercise, Transfers Treatment Duration: March 20, 2023 Frequency: 6 times per week Estimated Hrs Per Day: .25 hour per day Safety Risks/Education Patient Education: Gait Training, Transfer Techniques Teaching Recipient: Patient Teaching Methods: Demonstration, Discussion Response to Teaching: Reinforcement Needed Time Time In: 933 Time Out: 957 DATE: March 03, 2023 Total Billed Treatment Time: 24 Total Billed Treatment Visit, Gait (2) ELVIRA GIRON PT March 03, 2023 12:44
--- NOTE | 2023-03-03 15:07 | Occupational Ther Daily Note ---
OT Current Status-Daily Note Subjective Patient reports he put on pants, patient is laying in bed disrobed an d1/2 of body draped by sheet. Agrees to OT, Mental Status/Objective Patient Orientation: Person, Place (hospital) Refuses drug intervention and reports that "They are trying to control me, you can control the drugged ones.." ADL-Treatment Therapy Code Descriptions/Definitions Functional [place] Measure: 0=Not Assessed/NA 4=Minimal Assistance 1=Total Assistance 5=Supervision or Setup 2=Maximal Assistance 6=Modified [place] 3=Moderate Assistance 7=Complete IndependenceSCALE: Activities may be completed with or without assistive devices. 9-Bumecpkmtl-vkfsvjs completes the activity by him/herself with no assistance from a helper. 5-Set-up or Clean-up Assistance-helper sets up or cleans up; patient completes activity. Antimony assists only prior to or following the activity. 4-Supervision or Touching Assistance-helper provides verbal cues and/or touching/steadying and/or contact guard assistance as patient completes activity. Assistance may be provided throughout the activity or intermittently. 3-Partial/Moderate Assistance-helper does LESS THAN HALF the effort. Antimony lifts, holds or supports trunk or limbs, but provides less than half the effort. 2-Substantial/Maximal Assistance-helper does MORE THAN HALF the effort. Antimony lifts or holds trunk or limbs and provides more than half the effort. 7-Tfmjxezad-geaaed does ALL the effort. Patient does none of the effort to complete the activity. Or, the assistance of 2 or more helpers is required for the patient to complete the activity. If activity was not attempted, code reason: 7-Patient Refused. 9-Not Applicable-not attempted and the patient did not perform the activity before the current illness, exacerbation or injury. 10-Not Attempted due to Environmental Limitations-(lack of equipment, weather restraints, etc.). 88-Not Attempted due to Medical Conditions or Safety Concerns. Eating (QC): 5 (eats 1/3 of meal) Oral Hygiene (QC): 7 (refuses grooming skills) Shower/Bathe Self (QC): 7 (safe for sponge bathing only) Upper Body Dressing (QC): 4 Lower Body Dressing (QC): 7 (refused) On/Off Footwear: 7 (already on) Toileting Hygiene (QC): 3 (patient attempted BM wipe and paper wedged between glute folds, patient declined continuation of hygiene. small pellet bowel reported to RN) Toilet Transfer (QC): 4 minimal distance between steps, feet do not clear floor w/ step, extremely slow gait, remains impulsive and reports he is going ot break out of this joint. Patient sister in hallway and remains obscure from patient sight Education OT Patient Education: Modified ADL techniques, Progress toward Goal/Update tx plan, Purpose of tx/functional activities, Reviewed precautions, Rehab process, Safety issues, Transfer techniques, Use of adapted equipment Teaching Recipient: Patient Teaching Methods: Demonstration, Discussion Response to Teaching: Unable to Return Demonstration OT Long-Term Goals Long-Term Goals Toileting Hygiene (QC): 4 Shower/Bathe Self (QC): 4 Upper Body Dressing (QC): 4 Lower Body Dressing (QC): 4 On/Off Footwear (QC): 4 1=Demonstrate adherence to instructed precautions during ADL tasks. 2=Patient will verbalize/demonstrate understanding of assistive devices/modifications for ADL. 3=Patient will improve strength/tolerance for activity to enable patient to perform ADL's. OT Education/Plan Problem List/Assessment Assessment: Decreased Activ Tolerance, Decreased Safety Aware, Impaired Cognition, Impaired Coordination, Impaired Funct Balance, Impaired Self-Care Skills Discharge Recommendations Plan/Recommendations: Continue POC Therapy Discharge Recommendati: Post Acute OT Barriers to Progress cognition Treatment Plan/Plan of Care Treatment,Training & Education: Yes Patient would benefit from OT for education, treatment and training to promote independence in ADL's, mobility, safety and/or upper extremity function for ADL's. Plan of Care: ADL Retraining, Functional Mobility, Group Exercise/Act as Ind, UE Funct Exercise/Act Treatment Duration: March 06, 2023 Frequency: 3 times per week (3-5 times per week) Estimated Hrs Per Day: .25 hour per day Rehab Potential: Guarded Time Start Time: 14:45 Stop Time: 15:12 DATE: March 03, 2023 Total Time Billed (hr/min): 27 Billed Treatment Time ADL 27 min ALONZO DAVIS OT March 03, 2023 15:07
[2023-03-03 15:39] VITALS: BP_SYST 108; BP_SYST 95; BP_DIAS 55; BP_DIAS 63
[2023-03-03] MEDS: ACETAMINOPHEN 325 MG TABLET PO PRN (16:06)
[2023-03-03] MEDS: ENOXAPARIN 40 MG/0.4 ML (LOVENOX) SYR SQ SCH (19:34)
[2023-03-03] MEDS: AMIODARONE 200 MG (CORDARONE) TAB PO SCH (19:34)
[2023-03-03 19:36] VITALS: BP 98/57
[2023-03-03] MEDS ORDERED: HALOPERIDOL 5 MG (HALDOL) TAB ONE (20:44)
[2023-03-03] MEDS ORDERED: HALOPERIDOL 5 MG (HALDOL) TAB PO ONE (20:45)
[2023-03-04] VITALS (8 sets, daily range): BP systolic 81–112; BP diastolic 48–70
[2023-03-04 05:42] LABS: BASOPHILS % (AUTO) 1 % (0-10); EOSINOPHILS # (AUTO) 0.1 10^3/uL (0.0-0.3); EOSINOPHILS % (AUTO) 2 % (0-10); HEMATOCRIT 47 % (40-54); LYMPHOCYTES # (AUTO) 2.1 10^3/uL (1.0-4.0); LYMPHOCYTES % (AUTO) 35 % (12-44); MEAN CORPUSCULAR HEMOGLOBIN 31 pg (25-34); MEAN CORPUSCULAR HGB CONC 34 g/dL (32-36); MEAN CORPUSCULAR VOLUME 91 fL (80-99); MEAN PLATELET VOLUME 11.1 fL (9.0-12.2); MONOCYTES # (AUTO) 0.8 10^3/uL (0.0-1.0); MONOCYTES % (AUTO) 14 % (0-12); NEUTROPHILS # (AUTO) 2.8 10^3/uL (1.8-7.8); NEUTROPHILS % (AUTO) 47 % (42-75); PLATELET COUNT 158 10^3/uL (130-400); WHITE BLOOD COUNT 5.9 10^3/uL (4.3-11.0)
[2023-03-04 05:52] LABS: POTASSIUM 4.9 MMOL/L (3.6-5.0)
[2023-03-04 05:53] LABS: CALCIUM 9.4 MG/DL (8.5-10.1)
[2023-03-04 05:58] LABS: CREATININE SERUM 2.08 MG/DL (0.60-1.30)
[2023-03-04 06:00] LABS: MAGNESIUM 2.4 MG/DL (1.6-2.4)
[2023-03-04] MEDS: MAGNESIUM 1 GM/100 ML IVPB 100 ML IV SCH (06:34)
[2023-03-04] MEDS: POTASSIUM CL 10MEQ/50ML IVPB 50 ML IV SCH (06:34)
[2023-03-04] MEDS: KCL 20 MEQ TAB (K-DUR) PO SCH (06:34)
[2023-03-04] MEDS: FUROSEMIDE 40 MG/4 ML INJ (LASIX) IVP SCH (06:43)
[2023-03-04] MEDS: MULTIVIT W/MINERALS TAB (THERAGRAN M) PO SCH (06:43)
--- NOTE | 2023-03-04 08:41 | Progress Note ---
Subjective Subjective Date Seen by Provider: March 04, 2023 Time Seen by Provider: 08:40 Pt is a 72 y/o male who is hospitalized for Alcoholic Cardiomyopathy, Chronic alcoholism with withdrawal. Pt is sleepy, not responding well to this scientific technical writer. Review of Systems General: No Chills; Fatigue, Malaise HEENT: No Head Aches; Visual Changes Pulmonary: No Dyspnea, No Cough Cardiovascular: No: Chest Pain, Palpitations Gastrointestinal: No: Nausea, Abdominal Pain Neurological: Weakness, Confusion All Other Systems Reviewed All Other Systems Reviewed: Yes Objective Exam Vital Signs Vital Signs Date Time Temp Pulse Resp B/P (MAP) Pulse Ox O2 Delivery O2 Flow Rate FiO2 03/04/23 07:15 36.4 54 18 81/48 (59) 97 Room Air 03/04/23 04:00 36.0 55 18 112/63 (79) 95 Room Air 03/04/23 00:00 36.0 57 18 101/60 (74) 97 Room Air 03/03/23 20:00 Room Air 03/03/23 19:36 36.4 62 18 98/57 (71) 97 Room Air 03/03/23 15:39 36.4 59 18 108/63 (78) 95 Room Air 03/03/23 11:45 36.0 59 16 90/54 (66) 98 Room Air I & O 03/04/23 06:59 Intake Total 1610 ml Output Total 300 ml Balance 1310 ml General Appearance: No Apparent Distress, WD/WN HEENT: PERRL/EOMI Neck: Non Tender, Supple Respiratory: Chest Non Tender, Lungs Clear, No Accessory Muscle Use, No Respiratory Distress Cardiovascular: Regular Rate, Rhythm, Systolic Murmur Gastrointestinal: Normal Bowel Sounds, Non Tender, Soft Back: No CVA Tenderness Extremity: Normal Capillary Refill, No Calf Tenderness, No Pedal Edema Neurologic/Psychiatric: Alert, Other (oriented to person, not place, time) Skin: Normal Color, Warm/Dry, Other (abrasions on heels) Results Lab Laboratory Tests 03/04/23 05:20: White Blood Count 5.9, Red Blood Count 5.20, Hemoglobin 16.0, Hematocrit 47, Mean Corpuscular Volume 91, Mean Corpuscular Hemoglobin 31, Mean Corpuscular Hemoglobin Concent 34, Red Cell Distribution Width 13.8, Platelet Count 158, Mean Platelet Volume 11.1, Immature Granulocyte % (Auto) 0, Neutrophils (%) (Auto) 47, Lymphocytes (%) (Auto) 35, Monocytes (%) (Auto) 14H, Eosinophils (%) (Auto) 2, Basophils (%) (Auto) 1, Neutrophils # (Auto) 2.8, Lymphocytes # (Auto) 2.1, Monocytes # (Auto) 0.8, Eosinophils # (Auto) 0.1, Basophils # (Auto) 0.0, Immature Granulocyte # (Auto) 0.0, Sodium Level 132L, Potassium Level 4.9, Chloride Level 102, Carbon Dioxide Level 17L, Anion Gap 13, Blood Urea Nitrogen 45H, Creatinine 2.08H, Estimat Glomerular Filtration Rate 33, BUN/Creatinine Ratio 22, Glucose Level 134H, Calcium Level 9.4, Phosphorus Level 6.0H, Magnesium Level 2.4 Microbiology 02/24/23 MRSA Screen - Final, Complete MRSA not isolated 02/24/23 Urine Culture - Final, Complete NO GROWTH 02/24/23 Blood Culture - Final, Complete No growth Assessment/Plan Assessment/Plan Admission Dx Acute systolic congestion heart failure due to cardiomyopathy from alcoholism Alcoholism History of alcohol withdrawal seizures Elevated troponin Medication noncompliance Assessment and Plan Acute systolic congestion heart failure due to cardiomyopathy from alcoholism Alcoholism History of alcohol withdrawal seizures Elevated troponin Medication noncompliance Aggressive behavior with staff Hypotension Acute systolic congestion heart failure due to cardiomyopathy from alcoholism - consult to Dr. Jang - see his note for full details - pt on amiodarone 400mg bid, [id number], entresto 24/26mg, lasix 20mg iv bid, carvedilol 3.125mg bid, EF of 15 - 20%, down significantly from 2019 echo report. - Jet will need close follow up as outpatient due to his heart failure. - his alcoholism is the primary cause of his cardiovascular compromise. Alcoholism with History of alcohol withdrawal seizures - [facility] protocol - close and aggressive monitoring - he was still intoxicated on admission to hospital. Elevated troponin - defer to cardiology - may be due to NSTEMI versus heart failure causing elevated troponin Medication noncompliance - will need close, consistent follow up. Aggressive behavior with staff improved after coming down from alcohol intoxication -pt improving, sleepy now, not aggressive as previous when acutely withdrawing from alcohol. Hypotension - -improved off of precedex Acute renal failure - improved after fluid supplementation He may benefit from inpatient rehab on DC due to his weakness. started PT/OT - Last admission we had him set up for NH for SNF - but he left AMA. DVT prophylaxis with scd's and anticoag. GI Prophylaxis with ppi. PT at VERY high risk of in-hospital due to his hx of DT's and his acutely compromised cardiovascular status Admission Dx Acute systolic congestion heart failure due to cardiomyopathy from alcoholism Alcoholism History of alcohol withdrawal seizures Elevated troponin Medication noncompliance Clinical Quality Measures Admission Status Admission Dx Acute systolic congestion heart failure due to cardiomyopathy from alcoholism Alcoholism History of alcohol withdrawal seizures Elevated troponin Medication noncompliance KARLI ANTUNEZ MD March 04, 2023 08:41
[2023-03-04] MEDS ORDERED: KCL 20 MEQ TAB (K-DUR) PO SCH (09:00)
[2023-03-04] MEDS ORDERED: SPIRONOLACTONE 25 MG (ALDACTONE) TAB PO SCH (09:30)
[2023-03-04] MEDS: ASPIRIN E.C. 81 MG (ECOTRIN) TAB PO SCH (10:20)
[2023-03-04] MEDS: EMPAGLIFLOZIN 10 MG TABLET (JARDIANCE) PO SCH (10:21)
[2023-03-04] MEDS: FOLIC ACID 1 MG TAB PO SCH (10:21)
[2023-03-04] MEDS: HALOPERIDOL 0.5 MG (HALDOL) TAB PO SCH ×3 (10:22→20:05)
[2023-03-04] MEDS: AMIODARONE 200 MG (CORDARONE) TAB PO SCH ×2 (10:22→20:05)
[2023-03-04] MEDS: PANTOPRAZOLE 40 MG (PROTONIX) VIAL IV SCH (10:23)
[2023-03-04] MEDS: SACUBITRIL/VALSARTAN 24/26 MG (ENTRESTO) TABLET PO SCH ×2 (10:26→20:05)
--- NOTE | 2023-03-04 11:13 | Progress Note - Cardiology ---
Cardiology SOAP Progress Note Subjective: Confused, somnolent, does not provide any symptoms His sister was by his bedside at this visit Objective: I&O/Vital Signs 03/04/23 03/04/23 03/04/23 03/04/23 00:00 04:00 07:15 10:17 Temp 36.0 36.0 36.4 Pulse 57 55 54 54 Resp 18 18 18 B/P (MAP) 101/60 (74) 112/63 (79) 81/48 (59) Pulse Ox 97 95 97 O2 Delivery Room Air Room Air Room Air 03/04/23 00:00 Intake Total 1360 ml Output Total 300 ml Balance 1060 ml Weight (Pounds): 188 Weight (Ounces): 0.0 Weight (Calculated Kilograms): 85.853222 Constitutional: well-developed, well-nourished, other (somnolent, verbally non-responsive) Respiratory: chest expansion is symmetric, chest is bilaterally symmetric, other Cardiovascular: regular rate-rhythm, S1 and S2, systolic murmur Gastrointestional: soft, audible bowel sounds Extremities: no lower extremity edema bilateral Neurologic/Psychiatric: oriented x 3, other Skin: No rash on exposed areas, No ulcerations on exposed areas Results/Procedures: Labs Laboratory Tests 03/04/23 05:20: White Blood Count 5.9, Red Blood Count 5.20, Hemoglobin 16.0, Hematocrit 47, Mean Corpuscular Volume 91, Mean Corpuscular Hemoglobin 31, Mean Corpuscular Hemoglobin Concent 34, Red Cell Distribution Width 13.8, Platelet Count 158, Mean Platelet Volume 11.1, Immature Granulocyte % (Auto) 0, Neutrophils (%) (Auto) 47, Lymphocytes (%) (Auto) 35, Monocytes (%) (Auto) 14H, Eosinophils (%) (Auto) 2, Basophils (%) (Auto) 1, Neutrophils # (Auto) 2.8, Lymphocytes # (Auto) 2.1, Monocytes # (Auto) 0.8, Eosinophils # (Auto) 0.1, Basophils # (Auto) 0.0, Immature Granulocyte # (Auto) 0.0, Sodium Level 132L, Potassium Level 4.9, Chloride Level 102, Carbon Dioxide Level 17L, Anion Gap 13, Blood Urea Nitrogen 45H, Creatinine 2.08H, Estimat Glomerular Filtration Rate 33, BUN/Creatinine Ratio 22, Glucose Level 134H, Calcium Level 9.4, Phosphorus Level 6.0H, Magnesium Level 2.4 Microbiology 02/24/23 MRSA Screen - Final, Complete MRSA not isolated 02/24/23 Urine Culture - Final, Complete NO GROWTH 02/24/23 Blood Culture - Final, Complete No growth Laboratory Tests 03/03/23 06:21 03/04/23 05:20 A/P: Assessment: Confusion - likely alcohol withdrawal - management per Medical services Ac renal failure - likely volume depletion due to diuretics to treat heart failure Acute systolic CHF - Echocardiiogram of 12-30-[address] Griffin showed LVEF 55-65%; concentric hypertrophy; grade 1 diastolic dysfunction. Mild to mod AoR. PASP 40 mmHg Frequent ventricular ectopy Severe cadiomyopathy - Echo of 02-25-23: The cavity size is normal. Wall thickness is normal. Systolic function is severely reduced. The estimated ejection fraction is 15-20%. Severe diffuse hypokinesis. Features are consistent with a pseudonormal left ventricular filling pattern, with concomitant abnormal relaxation and increased filling pressure (grade 2 diastolic dysfunction). Aortic valve: There is trivial regurgitation. Pulmonary arteries: Systolic pressure is in the range of 30 mm Hg to 35 mm Hg. Elevated troponin - NSTEMI vs Type 2 OR secondary to acute CHF/severe CM H/O abnormal MPI - MPI of 01-05-[address] Griffin: Pharmacological stress test was negative for ischemia. Normal LV function with no wall motion abnormalities. Possible ischemi a in the apex. Elevated TID. Coronary angiography was recommended (pt refused at that time per Dr. Griffin's note) Heavy ETOH abuse - 3 pints Vodka/day HTN Non-compliant with medications/recs/follow up Plan: * Complex management * HF treatment as tolerated by bp and renal function * Due to worsening of renal function, we are holding furosemide and reducing spironolactone * [facility] * Continue oral amiodarone which has resulted in control of vent arrhythhmia. * PT/OT * Monitor labs * I discussed his CV issues in detail with his sister today and answered CV- related questions ALEX CARROLL MD FACP FAC CCDS March 04, 2023 11:13
[2023-03-04] MEDS: POVIDONE (BETADINE) 10% SOLN 240 ML BTL TOP SCH ×2 (11:26→20:06)
--- NOTE | 2023-03-04 11:39 | Physical Therapy Daily Note ---
PT Daily Note-Current Subjective Patient more alert but very confused. Pain Section J - Health Conditions 1. Rarely or not at all 2. Occasionally 3. Frequently 4. Almost constantly 8. Unable to answer Pain Effect on Sleep: 1 Pain Interference with Therapy: 1 Pain Interference w/Day-to-Day: 1 Mental Status Patient Orientation: Confused Transfers SCALE: Activities may be completed with or without assistive devices. 3-Bivnvsmdud-dlgfrhf completes the activity by him/herself with no assistance from a helper. 5-Set-up or Clean-up Assistance-helper sets up or cleans up; patient completes activity. [place] assists only prior to or following the activity. 4-Supervision or Touching Assistance-helper provides verbal cues and/or touching/steadying and/or contact guard assistance as patient completes activity. Assistance may be provided throughout the activity or intermittently. 3-Partial/Moderate Assistance-helper does LESS THAN HALF the effort. [place] lifts, holds or supports trunk or limbs, but provides less than half the effort. 2-Substantial/Maximal Assistance-helper does MORE THAN HALF the effort. [place] lifts or holds trunk or limbs and provides more than half the effort. 0-Fdrargtcz-ysynae does ALL the effort. Patient does none of the effort to complete the activity. Or, the assistance of 2 or more helpers is required for the patient to complete the activity. If activity was not attempted, code reason: 7-Patient Refused. 9-Not Applicable-not attempted and the patient did not perform the activity before the current illness, exacerbation or injury. 10-Not Attempted due to Environmental Limitations-(lack of equipment, weather restraints, etc.). 88-Not Attempted due to Medical Conditions or Safety Concerns. Sit to Stand (QC): 3 Chair/Wpn-iq-Erdbn Xfer(QC): 3 Gait Training Distance: 15' x 1/50' x 1 Walk 10 feet (QC): 3 Walk 50 ft with 2 Turns(QC): 3 Gait Assistive Device: FWW extended UE's with FWW use/noted shuffle gait sequence with inability to increase step length Assessment Patient up in recliner with chair alarm activated and family present. PT to continue to increase activity as tolerated by patient. PT Table Attendant Goals Table Attendant Goals PT [facility] Goals Time Frame: March 20, 2023 Roll Left & Right (QC): 4 Sit to Lying (QC): 4 Lying-Sitting on Side/Bed(QC): 4 Sit to Stand (QC): 4 Chair/Tcg-il-Bhwmu Xfer(QC): 4 Toilet Transfer (QC): 4 Walk 10 feet (QC): 4 Walk 50ft with 2 Turns (QC): 4 Walk 150 ft (QC): 4 PT Plan Treatment/Plan Treatment Plan: Continue Plan of Care Treatment Plan: Bed Mobility, Education, Functional Activity Rick, Functional Strength, Gait, Safety, Therapeutic Exercise, Transfers Treatment Duration: March 20, 2023 Frequency: 6 times per week Estimated Hrs Per Day: .25 hour per day Time Time In: 1025 Time Out: 1036 DATE: March 04, 2023 Total Billed Treatment Time: 11 Total Billed Treatment 1 visit FA 11 min LEE GAO PT March 04, 2023 11:39
--- NOTE | 2023-03-04 12:48 | Occupational Ther Daily Note ---
OT Current Status-Daily Note Subjective On arrival patient attempting to get out of bed, linens saturated Mental Status/Objective Patient Orientation: Person ADL-Treatment Therapy Code Descriptions/Definitions Functional [place] Measure: 0=Not Assessed/NA 4=Minimal Assistance 1=Total Assistance 5=Supervision or Setup 2=Maximal Assistance 6=Modified [place] 3=Moderate Assistance 7=Complete IndependenceSCALE: Activities may be completed with or without assistive devices. 9-Kdztxisdzm-zpuvtfl completes the activity by him/herself with no assistance from a helper. 5-Set-up or Clean-up Assistance-helper sets up or cleans up; patient completes activity. [place] assists only prior to or following the activity. 4-Supervision or Touching Assistance-helper provides verbal cues and/or touching/steadying and/or contact guard assistance as patient completes activity. Assistance may be provided throughout the activity or intermittently. 3-Partial/Moderate Assistance-helper does LESS THAN HALF the effort. [place] lifts, holds or supports trunk or limbs, but provides less than half the effort. 2-Substantial/Maximal Assistance-helper does MORE THAN HALF the effort. [place] lifts or holds trunk or limbs and provides more than half the effort. 7-Ayjileggt-ucqxxu does ALL the effort. Patient does none of the effort to complete the activity. Or, the assistance of 2 or more helpers is required for the patient to complete the activity. If activity was not attempted, code reason: 7-Patient Refused. 9-Not Applicable-not attempted and the patient did not perform the activity before the current illness, exacerbation or injury. 10-Not Attempted due to Environmental Limitations-(lack of equipment, weather restraints, etc.). 88-Not Attempted due to Medical Conditions or Safety Concerns. Bathing Location: L Upper Leg, R Upper Leg, Buttocks, Perineal Area Shower/Bathe Self (QC): 3 Upper Body Dressing (QC): 3 Lower Body Dressing (QC): 2 On/Off Footwear: 2 Toileting Hygiene (QC): 2 Toilet Transfer (QC): 3 Education OT Patient Education: Modified ADL techniques, Progress toward Goal/Update tx plan, Purpose of tx/functional activities, Reviewed precautions, Rehab process, Safety issues, Transfer techniques Teaching Recipient: Patient Teaching Methods: Demonstration, Discussion Response to Teaching: Reinforcement Needed OT Mohs Surgeon Goals [facility] Goals Toileting Hygiene (QC): 4 Shower/Bathe Self (QC): 4 Upper Body Dressing (QC): 4 Lower Body Dressing (QC): 4 On/Off Footwear (QC): 4 1=Demonstrate adherence to instructed precautions during ADL tasks. 2=Patient will verbalize/demonstrate understanding of assistive devices/modifications for ADL. 3=Patient will improve strength/tolerance for activity to enable patient to perf orm ADL's. OT Education/Plan Problem List/Assessment Assessment: Decreased Activ Tolerance Discharge Recommendations Plan/Recommendations: Continue POC Treatment Plan/Plan of Care Treatment,Training & Education: Yes Patient would benefit from OT for education, treatment and training to promote independence in ADL's, mobility, safety and/or upper extremity function for ADL's. Plan of Care: ADL Retraining, Functional Mobility, Group Exercise/Act as Ind, UE Funct Exercise/Act Treatment Duration: March 06, 2023 Frequency: 3 times per week (3-5 times per week) Estimated Hrs Per Day: .25 hour per day Rehab Potential: Guarded Returned to chair w/ alarm set, all needs met Time Start Time: 10:10 Stop Time: 10:36 DATE: March 04, 2023 Total Time Billed (hr/min): 26 Billed Treatment Time ADL 26 min ALONZO DAVIS OT March 04, 2023 12:48
[2023-03-04] MEDS: ENOXAPARIN 40 MG/0.4 ML (LOVENOX) SYR SQ SCH (20:05)
[2023-03-05 03:03] VITALS: BP 127/77
[2023-03-05 06:02] LABS: BASOPHILS % (AUTO) 1 % (0-10); EOSINOPHILS # (AUTO) 0.1 10^3/uL (0.0-0.3); EOSINOPHILS % (AUTO) 1 % (0-10); HEMATOCRIT 46 % (40-54); HEMOGLOBIN 15.9 g/dL (13.3-17.7); LYMPHOCYTES # (AUTO) 1.8 10^3/uL (1.0-4.0); LYMPHOCYTES % (AUTO) 21 % (12-44); MEAN CORPUSCULAR HEMOGLOBIN 31 pg (25-34); MEAN CORPUSCULAR HGB CONC 34 g/dL (32-36); MEAN CORPUSCULAR VOLUME 90 fL (80-99); MEAN PLATELET VOLUME 11.5 fL (9.0-12.2); MONOCYTES # (AUTO) 0.9 10^3/uL (0.0-1.0); MONOCYTES % (AUTO) 10 % (0-12); NEUTROPHILS # (AUTO) 5.6 10^3/uL (1.8-7.8); NEUTROPHILS % (AUTO) 66 % (42-75); PLATELET COUNT 145 10^3/uL (130-400); WHITE BLOOD COUNT 8.4 10^3/uL (4.3-11.0)
[2023-03-05 06:23] LABS: CREATININE SERUM 1.52 MG/DL (0.60-1.30); MAGNESIUM 2.3 MG/DL (1.6-2.4); PHOSPHORUS 4.2 MG/DL (2.3-4.7); POTASSIUM 4.8 MMOL/L (3.6-5.0)
[2023-03-05] MEDS: MULTIVIT W/MINERALS TAB (THERAGRAN M) PO SCH (06:57)
[2023-03-05] MEDS ORDERED: FUROSEMIDE 40 MG/4 ML INJ (LASIX) IVP SCH (07:00)
[2023-03-05 07:14] VITALS: BP 122/75
--- NOTE | 2023-03-05 08:57 | Progress Note - Cardiology ---
Cardiology SOAP Progress Note Subjective: Sister at the bedside No c/o CP, SOB or palpitations Objective: I&O/Vital Signs 03/07/23 03/08/23 03/08/23 03/08/23 23:01 01:00 02:39 03:14 Temp 36.4 36.5 Pulse 63 55 46 62 Resp 16 16 B/P (MAP) 126/72 (90) 111/54 (73) Pulse Ox 96 96 O2 Delivery Room Air Room Air 03/08/23 07:39 Temp 36.7 Pulse 58 Resp 18 B/P (MAP) 117/64 (81) Pulse Ox 96 O2 Delivery Room Air 03/08/23 00:00 Intake Total 1790 ml Balance 1790 ml Weight (Pounds): 188 Weight (Ounces): 0.0 Weight (Calculated Kilograms): 85.092416 Constitutional: well-developed, well-nourished, other (Awake, alert, oriented to self, place) Respiratory: chest expansion is symmetric, chest is bilaterally symmetric, other Cardiovascular: regular rate-rhythm, S1 and S2, systolic murmur Gastrointestional: soft, audible bowel sounds Extremities: no lower extremity edema bilateral Neurologic/Psychiatric: oriented x 3, other Skin: No rash on exposed areas, No ulcerations on exposed areas Results/Procedures: Labs Laboratory Tests 03/08/23 06:13: Sodium Level 136, Potassium Level 4.2, Chloride Level 105, Carbon Dioxide Level 21, Anion Gap 10, Blood Urea Nitrogen 21H, Creatinine 1.22, Estimat Glomerular Filtration Rate 63, BUN/Creatinine Ratio 17, Glucose Level 151H, Calcium Level 8.9, Magnesium Level 2.0 Microbiology 02/24/23 MRSA Screen - Final, Complete MRSA not isolated 02/24/23 Urine Culture - Final, Complete NO GROWTH 02/24/23 Blood Culture - Final, Complete No growth A/P: Assessment: Confusion - likely alcohol withdrawal - management per Medical services Ac renal failure - likely volume depletion due to diuretics to treat heart failure - improving w ith reduction in diuretic regimen Acute systolic CHF - Echocardiiogram of 12-30-[address] Griffin showed LVEF 55-65%; concentric h ypertrophy; grade 1 diastolic dysfunction. Mild to mod AoR. PASP 40 mmHg Frequent ventricular ectopy - no further episodes on tele Severe cadiomyopathy - Echo of 02-25-23: The cavity size is normal. Wall thickness is normal. Systolic function is severely reduced. The estimated ejection fraction is 15-20%. Severe diffuse hypokinesis. Features are consistent with a pseudonormal left ventricular filling pattern, with concomitant abnormal relaxation and increased filling pressure (grade 2 diastolic dysfunction). Aortic valve: There is trivial regurgitation. Pulmonary arteries: Systolic pressure is in the range of 30 mm Hg to 35 mm Hg. Elevated troponin - NSTEMI vs Type 2 MA secondary to acute CHF/severe CM H/O abnormal MPI - MPI of 01-05-[address] Griffin: Pharmacological stress test was negative for ischemia. Normal LV function with no wall motion abnormalities. Possible ischemia in the apex. Elevated TID. Coronary angiography was recommended (pt refused at that time per Dr. Griffin's note) Heavy ETOH abuse - 3 pints Vodka/day HTN Non-compliant with medications/recs/follow up Plan: * Complex management * HF treatment as tolerated by bp and renal function * Renal function improving following reduction in diuretic regimen * Management of alcohol withdrawal by the [facility] * Continue oral amiodarone which has resulted in control of vent arrhythmia. * PT/OT * Monitor labs * I discussed his CV issues in detail with his sister today and answered CV-rel ated questions EVAN LOCKETT March 05, 2023 08:57
[2023-03-05] MEDS: POVIDONE (BETADINE) 10% SOLN 240 ML BTL TOP SCH ×2 (09:00→20:49)
[2023-03-05] MEDS: SACUBITRIL/VALSARTAN 24/26 MG (ENTRESTO) TABLET PO SCH ×2 (09:04→20:48)
[2023-03-05] MEDS: HALOPERIDOL 0.5 MG (HALDOL) TAB PO SCH ×3 (09:05→20:48)
[2023-03-05] MEDS: ASPIRIN E.C. 81 MG (ECOTRIN) TAB PO SCH (09:05)
[2023-03-05] MEDS: PANTOPRAZOLE 40 MG (PROTONIX) VIAL IV SCH (09:05)
[2023-03-05] MEDS: FOLIC ACID 1 MG TAB PO SCH (09:05)
[2023-03-05] MEDS: EMPAGLIFLOZIN 10 MG TABLET (JARDIANCE) PO SCH (09:05)
[2023-03-05] MEDS: AMIODARONE 200 MG (CORDARONE) TAB PO SCH ×2 (09:06→20:48)
--- NOTE | 2023-03-05 10:14 | Progress Note ---
Subjective Subjective Date Seen by Provider: March 05, 2023 Time Seen by Provider: 09:40 Pt is a 72 y/o male who is hospitalized for Alcoholic Cardiomyopathy, Chronic alcoholism with withdrawal. Callum is back to his normal self - conversant, pleasantly interactive, talkative. He is embarrassed by his behaviors while he was going thru alcohol withdrawal and requests that he gets a copy of his medical records so he can see how awful things were and hopefully help to stop himself from going back to those behaviors Review of Systems General: No Chills; Fatigue, Malaise HEENT: No Head Aches; Visual Changes Pulmonary: Dyspnea; No Cough Cardiovascular: No: Chest Pain, Palpitations Gastrointestinal: No: Nausea, Abdominal Pain Neurological: Weakness; No: Confusion All Other Systems Reviewed All Other Systems Reviewed: Yes Objective Exam Vital Signs Vital Signs Date Time Temp Pulse Resp B/P (MAP) Pulse Ox O2 Delivery O2 Flow Rate FiO2 03/05/23 07:14 36.2 71 18 122/75 (91) 96 Room Air 03/05/23 07:00 69 03/05/23 03:03 36.5 68 16 127/77 (94) 98 Room Air 03/05/23 01:00 63 03/04/23 23:13 36.4 67 16 105/55 (72) 98 Room Air 03/04/23 20:00 Room Air 03/04/23 19:02 36.4 63 20 112/63 (79) 97 Room Air 03/04/23 19:00 65 03/04/23 16:00 36.3 63 18 102/66 (78) 96 Room Air 03/04/23 15:08 36.3 63 18 102/66 (78) 96 Room Air 03/04/23 12:46 64 03/04/23 11:22 36.5 61 18 103/70 (81) 97 Room Air 03/04/23 10:17 54 I & O 03/05/23 06:59 Intake Total 2970 ml Output Total 100 ml Balance 2870 ml General Appearance: No Apparent Distress, WD/WN HEENT: PERRL/EOMI Neck: Non Tender, Supple Respiratory: Chest Non Tender, Lungs Clear, No Accessory Muscle Use, No Respiratory Distress Cardiovascular: Regular Rate, Rhythm, Systolic Murmur Gastrointestinal: Normal Bowel Sounds, Non Tender, Soft Back: No CVA Tenderness Extremity: Normal Capillary Refill, No Calf Tenderness, No Pedal Edema Neurologic/Psychiatric: Alert, Oriented x3, Normal Mood/Affect Skin: Normal Color, Warm/Dry, Other (abrasions on heels) Results Lab Laboratory Tests 03/05/23 05:54: White Blood Count 8.4, Red Blood Count 5.16, Hemoglobin 15.9, Hematocrit 46, Mean Corpuscular Volume 90, Mean Corpuscular Hemoglobin 31, Mean Corpuscular Hemoglobin Concent 34, Red Cell Distribution Width 13.7, Platelet Count 145, Mean Platelet Volume 11.5, Immature Granulocyte % (Auto) 0, Neutrophils (%) (Auto) 66, Lymphocytes (%) (Auto) 21, Monocytes (%) (Auto) 10, Eosinophils (%) (Auto) 1, Basophils (%) (Auto) 1, Neutrophils # (Auto) 5.6, Lymphocytes # (Auto) 1.8, Monocytes # (Auto) 0.9, Eosinophils # (Auto) 0.1, Basophils # (Auto) 0.0, Immature Granulocyte # (Auto) 0.0, Sodium Level 134L, Potassium Level 4.8, Chloride Level 104, Carbon Dioxide Level 19L, Anion Gap 11, Blood Urea Nitrogen 40H, Creatinine 1.52H, Estimat Glomerular Filtration Rate 48, BUN/Creatinine Ratio 26, Glucose Level 132H, Calcium Level 9.0, Phosphorus Level 4.2, Magnesium Level 2.3 Microbiology 02/24/23 MRSA Screen - Final, Complete MRSA not isolated 02/24/23 Urine Culture - Final, Complete NO GROWTH 02/24/23 Blood Culture - Final, Complete No growth Assessment/Plan Assessment/Plan Admission Dx Acute systolic congestion heart failure due to cardiomyopathy from alcoholism Alcoholism History of alcohol withdrawal seizures Elevated troponin Medication noncompliance Assessment and Plan Acute systolic congestion heart failure due to cardiomyopathy from alcoholism Alcoholism History of alcohol withdrawal seizures Elevated troponin Medication noncompliance Aggressive behavior with staff Hypotension Acute systolic congestion heart failure due to cardiomyopathy from alcoholism - consult to Dr. Jang - see his note for full details - pt on amiodarone 400mg bid, [id number], entresto 24/26mg, lasix 20mg iv bid, carvedilol 3.125mg bid, EF of 15 - 20%, down significantly from 2019 echo report. - Jet will need close follow up as outpatient due to his heart failure. - his alcoholism is the primary cause of his cardiovascular compromise. Alcoholism with History of alcohol withdrawal seizures - [facility] protocol - close and aggressive monitoring - he was still intoxicated on admission to hospital. Elevated troponin - defer to cardiology - may be due to NSTEMI versus heart failure causing elevated troponin Medication noncompliance - will need close, consistent follow up. Aggressive behavior with staff RESOLVED - he is now back to his usual behaviors and activity - no longer aggressive, no longer confused. Hypotension - -improved off of precedex Acute renal failure - improved after fluid supplementation He may benefit from inpatient rehab on DC due to his weakness. started Bill with PT/OT Bill is agreeable to going to the care home to get stronger. DVT prophylaxis with scd's and anticoag. GI Prophylaxis with ppi. PT at VERY high risk of in-hospital due to his hx of DT's and his acutely compromised cardiovascular status Admission Dx Acute systolic congestion heart failure due to cardiomyopathy from alcoholism Alcoholism History of alcohol withdrawal seizures Elevated troponin Medication noncompliance Clinical Quality Measures Admission Status Admission Dx Acute systolic congestion heart failure due to cardiomyopathy from alcoholism Alcoholism History of alcohol withdrawal seizures Elevated troponin Medication noncompliance KARLI ANTUNEZ MD March 05, 2023 10:14
[2023-03-05 11:00] VITALS: BP 130/75
--- NOTE | 2023-03-05 11:28 | Physical Therapy Daily Note ---
PT Daily Note-Current Subjective Patient much more alert and cooperative on this date. Agrees to therapy. Pain Section J - Health Conditions 1. Rarely or not at all 2. Occasionally 3. Frequently 4. Almost constantly 8. Unable to answer Pain Effect on Sleep: 1 Pain Interference with Therapy: 1 Pain Interference w/Day-to-Day: 1 Mental Status Patient Orientation: Person Transfers SCALE: Activities may be completed with or without assistive devices. 1-Azfwrxjehx-dcagfds completes the activity by him/herself with no assistance from a helper. 5-Set-up or Clean-up Assistance-helper sets up or cleans up; patient completes activity. [place] assists only prior to or following the activity. 4-Supervision or Touching Assistance-helper provides verbal cues and/or touching/steadying and/or contact guard assistance as patient completes activity. Assistance may be provided throughout the activity or intermittently. 3-Partial/Moderate Assistance-helper does LESS THAN HALF the effort. [place] lifts, holds or supports trunk or limbs, but provides less than half the effort. 2-Substantial/Maximal Assistance-helper does MORE THAN HALF the effort. [place] lifts or holds trunk or limbs and provides more than half the effort. 4-Frahuznyx-bbrnvr does ALL the effort. Patient does none of the effort to complete the activity. Or, the assistance of 2 or more helpers is required for the patient to complete the activity. If activity was not attempted, code reason: 7-Patient Refused. 9-Not Applicable-not attempted and the patient did not perform the activity before the current illness, exacerbation or injury. 10-Not Attempted due to Environmental Limitations-(lack of equipment, weather restraints, etc.). 88-Not Attempted due to Medical Conditions or Safety Concerns. Sit to Stand (QC): 4 Gait Training Distance: 250' Walk 10 feet (QC): 4 Walk 50 ft with 2 Turns(QC): 4 Walk 150 ft (QC): 4 Gait Assistive Device: None GREEN EN[employer]GY MARKETING ANALYST with improved gait sequence/still slow and decreased step length but improved Assessment Patient improved on step length and distance with ambulation on this date. Family present. PT to increase activity as tolerated by patient. PT Longterm Goals Tour Manager Goals PT Tour Manager Goals Time Frame: March 20, 2023 Roll Left & Right (QC): 4 Sit to Lying (QC): 4 Lying-Sitting on Side/Bed(QC): 4 Sit to Stand (QC): 4 Chair/Jwy-ps-Ngbkf Xfer(QC): 4 Toilet Transfer (QC): 4 Walk 10 feet (QC): 4 Walk 50ft with 2 Turns (QC): 4 Walk 150 ft (QC): 4 PT Plan Treatment/Plan Treatment Plan: Continue Plan of Care Treatment Plan: Bed Mobility, Education, Functional Activity Rick, Functional Strength, Gait, Safety, Therapeutic Exercise, Transfers Treatment Duration: March 20, 2023 Frequency: 6 times per week Estimated Hrs Per Day: .25 hour per day Time Time In: 1035 Time Out: 1047 DATE: March 05, 2023 Total Billed Treatment Time: 12 Total Billed Treatment 1 visit FA 12 min LEE GAO PT March 05, 2023 11:28
--- NOTE | 2023-03-05 13:48 | Occupational Ther Daily Note ---
OT Current Status-Daily Note Subjective OT arrived w/ patient in bathroom, agreeable to OT Mental Status/Objective Patient Orientation: Person, Place, Time, Situation Patient reports, "I haven't had a drink since February 18 and I feel better" ADL-Treatment Therapy Code Descriptions/Definitions Functional [place] Measure: 0=Not Assessed/NA 4=Minimal Assistance 1=Total Assistance 5=Supervision or Setup 2=Maximal Assistance 6=Modified [place] 3=Moderate Assistance 7=Complete IndependenceSCALE: Activities may be completed with or without assistive devices. 8-Jpjivemqvb-ylzpsee completes the activity by him/herself with no assistance from a helper. 5-Set-up or Clean-up Assistance-helper sets up or cleans up; patient completes activity. [place] assists only prior to or following the activity. 4-Supervision or Touching Assistance-helper provides verbal cues and/or touching/steadying and/or contact guard assistance as patient completes activity. Assistance may be provided throughout the activity or intermittently. 3-Partial/Moderate Assistance-helper does LESS THAN HALF the effort. [place]clean lifts, holds or supports trunk or limbs, but provides less than half the effort. 2-Substantial/Maximal Assistance-helper does MORE THAN HALF the effort. [place] lifts or holds trunk or limbs and provides more than half the effort. 4-Rufosjuti-ppyrux does ALL the effort. Patient does none of the effort to complete the activity. Or, the assistance of 2 or more helpers is required for the patient to complete the activity. If activity was not attempted, code reason: 7-Patient Refused. 9-Not Applicable-not attempted and the patient did not perform the activity before the current illness, exacerbation or injury. 10-Not Attempted due to Environmental Limitations-(lack of equipment, weather restraints, etc.). 88-Not Attempted due to Medical Conditions or Safety Concerns. Eating (QC): 6 Oral Hygiene (QC): 4 Shower/Bathe Self (QC): 7 Upper Body Dressing (QC): 5 Lower Body Dressing (QC): 4 On/Off Footwear: 3 Toileting Hygiene (QC): 4 Toilet Transfer (QC): 4 Education OT Patient Education: Correct positioning, Modified ADL techniques, Progress toward Goal/Update tx plan, Purpose of tx/functional activities, Reviewed precautions, Rehab process, Safety issues, Transfer techniques Teaching Recipient: Patient, Family Response to Teaching: Verbalize Understanding, Reinforcement Needed OT [employer] Goals Prison Goals Toileting Hygiene (QC): 4 Shower/Bathe Self (QC): 4 Upper Body Dressing (QC): 4 Lower Body Dressing (QC): 4 On/Off Footwear (QC): 4 1=Demonstrate adherence to instructed precautions during ADL tasks. 2=Patient will verbalize/demonstrate understanding of assistive devices/modifications for ADL. 3=Patient will improve strength/tolerance for activity to enable patient to perform ADL's. OT Education/Plan Discharge Recommendations Plan/Recommendations: Continue POC Treatment Plan/Plan of Care Patient would benefit from OT for education, treatment and training to promote independence in ADL's, mobility, safety and/or upper extremity function for ADL's. Plan of Care: ADL Retraining, Functional Mobility, Group Exercise/Act as Ind, U E Funct Exercise/Act Treatment Duration: March 06, 2023 Frequency: 3 times per week (3-5 times per week) Estimated Hrs Per Day: .25 hour per day Rehab Potential: Guarded Time Start Time: 10:25 Stop Time: 10:40 DATE: March 05, 2023 Total Time Billed (hr/min): 15 Billed Treatment Time ADL 15 min ALONZO DAVIS OT March 05, 2023 13:48
--- NOTE | 2023-03-05 14:34 | Progress Note - Cardiology ---
Cardiology SOAP Progress Note Subjective: No cp or palp or syncope No shortness of breath at rest No n/v/d No focal weakness No swelling Gen weakness and malaise present Objective: I&O/Vital Signs 03/05/23 03/05/23 03/05/23 03/05/23 03:03 07:00 07:14 11:00 Temp 36.5 36.2 36.4 Pulse 68 69 71 68 Resp 16 18 18 B/P (MAP) 127/77 (94) 122/75 (91) 130/75 (93) Pulse Ox 98 96 98 O2 Delivery Room Air Room Air Room Air 03/04/23 23:59 Intake Total 2260 ml Output Total 100 ml Balance 2160 ml Weight (Pounds): 188 Weight (Ounces): 0.0 Weight (Calculated Kilograms): 85.641568 Constitutional: AAO x 3, well-developed, well-nourished Respiratory: chest expansion is symmetric, chest is bilaterally symmetric, other Cardiovascular: regular rate-rhythm, S1 and S2, systolic murmur Gastrointestional: soft, audible bowel sounds Extremities: no lower extremity edema bilateral Neurologic/Psychiatric: oriented x 3, other (moves all limbs) Skin: No rash on exposed areas, No ulcerations on exposed areas Results/Procedures: Labs Laboratory Tests 03/05/23 05:54: White Blood Count 8.4, Red Blood Count 5.16, Hemoglobin 15.9, Hematocrit 46, Mean Corpuscular Volume 90, Mean Corpuscular Hemoglobin 31, Mean Corpuscular Hemoglobin Concent 34, Red Cell Distribution Width 13.7, Platelet Count 145, Mean Platelet Volume 11.5, Immature Granulocyte % (Auto) 0, Neutrophils (%) ( Auto) 66, Lymphocytes (%) (Auto) 21, Monocytes (%) (Auto) 10, Eosinophils (%) (Auto) 1, Basophils (%) (Auto) 1, Neutrophils # (Auto) 5.6, Lymphocytes # (Auto) 1.8, Monocytes # (Auto) 0.9, Eosinophils # (Auto) 0.1, Basophils # (Auto) 0.0, Immature Granulocyte # (Auto) 0.0, Sodium Level 134L, Potassium Level 4.8, Chloride Level 104, Carbon Dioxide Level 19L, Anion Gap 11, Blood Urea Nitrogen 40H, Creatinine 1.52H, Estimat Glomerular Filtration Rate 48, BUN/Creatinine Ratio 26, Glucose Level 132H, Calcium Level 9.0, Phosphorus Level 4.2, Magnesium Level 2.3 Microbiology 02/24/23 MRSA Screen - Final, Complete MRSA not isolated 02/24/23 Urine Culture - Final, Complete NO GROWTH 02/24/23 Blood Culture - Final, Complete No growth Laboratory Tests 03/04/23 05:20 03/05/23 05:54 A/P: Assessment: Confusion - likely alcohol withdrawal - now much improved - management per Medical services Ac renal failure - likely volume depletion due to diuretics to treat heart failure - improving with reduction in diuretic regimen Acute systolic CHF - Echocardiiogram of 12-30-[address] Griffin showed LVEF 55-65%; concentric hypertrophy; grade 1 diastolic dysfunction. Mild to mod AoR. PASP 40 mmHg Frequent ventricular ectopy - no further episodes on tele Severe cadiomyopathy - Echo of 02-25-23: The cavity size is normal. Wall thickness is normal. Systolic function is severely reduced. The estimated ejection fraction is 15-20%. Severe diffuse hypokinesis. Features are consistent with a pseudonormal left ventricular filling pattern, with concomitant abnormal relaxation and increased filling pressure (grade 2 diastolic dysfunction). Aortic valve: There is trivial regurgitation. Pulmonary arteries: Systolic pressure is in the range of 30 mm Hg to 35 mm Hg. Elevated troponin - NSTEMI vs Type 2 [place] secondary to acute CHF/severe CM H/O abnormal MPI - MPI of 01-05-[address] Griffin: Pharmacological stress test was negative for ischemia. Normal LV function with no wall motion abnormalities. Possible ischemia in the apex. Elevated TID. Coronary angiography was recommended (pt refused at that time per Dr. Griffin's note) Heavy ETOH abuse - 3 pints Vodka/day HTN Non-compliant with medications/recs/follow up Plan: * Complex management * HF treatment as tolerated by bp and renal function * Renal function improving following reduction in diuretic regimen * Management of alcohol withdrawal by the [facility] * Continue oral amiodarone which has resulted in control of vent arrhythmia. * PT/OT * Monitor labs * I discussed his CV issues in detail with his him today and advised to refrain from alcohol. He understands and states he will do so * We recommend Life Vest prior to d/c ALEX CARROLL MD FACP FACC CCDS March 05, 2023 14:34
[2023-03-05 16:29] VITALS: BP 112/60
[2023-03-05 19:01] VITALS: BP 129/62
[2023-03-05] MEDS: POTASSIUM CL 10MEQ/50ML IVPB 50 ML IV SCH (19:43)
[2023-03-05] MEDS: MAGNESIUM 1 GM/100 ML IVPB 100 ML IV SCH (19:44)
[2023-03-05] MEDS: KCL 20 MEQ TAB (K-DUR) PO SCH (19:44)
[2023-03-05] MEDS: ENOXAPARIN 40 MG/0.4 ML (LOVENOX) SYR SQ SCH (20:48)
[2023-03-05] MEDS: LORazepam 1 MG (ATIVAN) TAB PO PRN (22:24)
[2023-03-05 23:02] VITALS: BP 122/63
[2023-03-06 03:51] VITALS: BP 124/68
[2023-03-06 06:02] LABS: BASOPHILS % (AUTO) 0 % (0-10); EOSINOPHILS # (AUTO) 0.1 10^3/uL (0.0-0.3); EOSINOPHILS % (AUTO) 2 % (0-10); HEMATOCRIT 42 % (40-54); HEMOGLOBIN 14.2 g/dL (13.3-17.7); LYMPHOCYTES # (AUTO) 1.5 10^3/uL (1.0-4.0); LYMPHOCYTES % (AUTO) 30 % (12-44); MEAN CORPUSCULAR HEMOGLOBIN 31 pg (25-34); MEAN CORPUSCULAR HGB CONC 34 g/dL (32-36); MEAN CORPUSCULAR VOLUME 90 fL (80-99); MEAN PLATELET VOLUME 11.3 fL (9.0-12.2); MONOCYTES # (AUTO) 0.7 10^3/uL (0.0-1.0); MONOCYTES % (AUTO) 13 % (0-12); NEUTROPHILS # (AUTO) 2.8 10^3/uL (1.8-7.8); NEUTROPHILS % (AUTO) 55 % (42-75); PLATELET COUNT 130 10^3/uL (130-400); WHITE BLOOD COUNT 5.1 10^3/uL (4.3-11.0)
[2023-03-06 06:13] LABS: POTASSIUM 4.4 MMOL/L (3.6-5.0)
[2023-03-06 06:14] LABS: CALCIUM 9.1 MG/DL (8.5-10.1)
[2023-03-06 06:18] LABS: CREATININE SERUM 1.12 MG/DL (0.60-1.30); PHOSPHORUS 3.3 MG/DL (2.3-4.7)
[2023-03-06 06:20] LABS: MAGNESIUM 2.1 MG/DL (1.6-2.4)
[2023-03-06] MEDS: MAGNESIUM 1 GM/100 ML IVPB 100 ML IV SCH (06:23)
[2023-03-06] MEDS: POTASSIUM CL 10MEQ/50ML IVPB 50 ML IV SCH (06:23)
[2023-03-06] MEDS: KCL 20 MEQ TAB (K-DUR) PO SCH (06:24)
[2023-03-06] MEDS: MULTIVIT W/MINERALS TAB (THERAGRAN M) PO SCH (06:45)
[2023-03-06 08:00] VITALS: BP 126/63
[2023-03-06] MEDS: ASPIRIN E.C. 81 MG (ECOTRIN) TAB PO SCH (08:40)
[2023-03-06] MEDS: PANTOPRAZOLE 40 MG (PROTONIX) TAB PO SCH (08:40)
[2023-03-06] MEDS: SACUBITRIL/VALSARTAN 24/26 MG (ENTRESTO) TABLET PO SCH ×2 (08:40→20:39)
[2023-03-06] MEDS: AMIODARONE 200 MG (CORDARONE) TAB PO SCH ×2 (08:40→20:38)
[2023-03-06] MEDS: HALOPERIDOL 0.5 MG (HALDOL) TAB PO SCH ×3 (08:40→20:39)
[2023-03-06] MEDS: SPIRONOLACTONE 25 MG (ALDACTONE) TAB PO SCH (08:41)
[2023-03-06] MEDS: FOLIC ACID 1 MG TAB PO SCH (08:41)
[2023-03-06] MEDS: FUROSEMIDE 40 MG (LASIX) TAB PO SCH (08:41)
[2023-03-06] MEDS: EMPAGLIFLOZIN 10 MG TABLET (JARDIANCE) PO SCH (08:41)
[2023-03-06] MEDS: POVIDONE (BETADINE) 10% SOLN 240 ML BTL TOP SCH ×2 (08:42→20:40)
[2023-03-06 11:04] VITALS: BP 111/63
--- NOTE | 2023-03-06 11:23 | Physical Therapy Progress Note ---
Therapy Progress Note Patient refused PT today. PAUL LIZAMA PT March 06, 2023 11:23
--- NOTE | 2023-03-06 15:11 | Progress Note - Cardiology ---
Cardiology SOAP Progress Note Subjective: Had been agitated Currently sedated and does not answer questions Objective: I&O/Vital Signs 03/06/23 03/06/23 03/06/23 03/06/23 03:51 08:00 08:30 08:48 Temp 36.5 36.6 Pulse 65 65 65 Resp 16 18 B/P (MAP) 124/68 (86) 126/63 (84) Pulse Ox 96 96 O2 Delivery Room Air Room Air Room Air 03/06/23 03/06/23 11:04 12:39 Temp 36.4 Pulse 60 55 Resp 18 B/P (MAP) 111/63 (79) Pulse Ox 95 O2 Delivery Room Air 03/05/23 23:59 Intake Total 900 ml Balance 900 ml Weight (Pounds): 188 Weight (Ounces): 0.0 Weight (Calculated Kilograms): 85.074453 Constitutional: well-developed, well-nourished Respiratory: chest expansion is symmetric, chest is bilaterally symmetric, other Cardiovascular: regular rate-rhythm, S1 and S2, systolic murmur Gastrointestional: soft, audible bowel sounds Extremities: no lower extremity edema bilateral Neurologic/Psychiatric: other (moves all limbs) Skin: No rash on exposed areas, No ulcerations on exposed areas Results/Procedures: Labs Laboratory Tests 03/06/23 05:49: White Blood Count 5.1, Red Blood Count 4.64, Hemoglobin 14.2, Hematocrit 42, Mean Corpuscular Volume 90, Mean Corpuscular Hemoglobin 31, Mean Corpuscular Hemoglobin Concent 34, Red Cell Distribution Width 13.8, Platelet Count 130, Mean Platelet Volume 11.3, Immature Granulocyte % (Auto) 0, Neutrophils (%) (Auto) 55, Lymphocytes (%) (Auto) 30, Monocytes (%) (Auto) 13H, Eosinophils (%) (Auto) 2, Basophils (%) (Auto) 0, Neutrophils # (Auto) 2.8, Lymphocytes # (Auto) 1.5, Monocytes # (Auto) 0.7, Eosinophils # (Auto) 0.1, Basophils # (Auto) 0.0, Immature Granulocyte # (Auto) 0.0, Sodium Level 135, Potassium Level 4.4, Chloride Level 106, Carbon Dioxide Level 18L, Anion Gap 11, Blood Urea Nitrogen 29H, Creatinine 1.12, Estimat Glomerular Filtration Rate 70, BUN/Creatinine Ratio 26, Glucose Level 140H, Calcium Level 9.1, Phosphorus Level 3.3, Magnesium Level 2.1 Microbiology 02/24/23 MRSA Screen - Final, Complete MRSA not isolated 02/24/23 Urine Culture - Final, Complete NO GROWTH 02/24/23 Blood Culture - Final, Complete No growth Laboratory Tests 03/05/23 05:54 03/06/23 05:49 A/P: Assessment: Confusion - likely alcohol withdrawal - confusion varies significantly - management per Medical services Ac renal failure - likely volume depletion due to diuretics to treat heart failure - improving with reduction in diuretic regimen Acute systolic CHF - Echocardiiogram of 12-30-[address] Griffin showed LVEF 55-65%; concentric hypertrophy; grade 1 diastolic dysfunction. Mild to mod AoR. PASP 40 mmHg Frequent ventricular ectopy - no further episodes on tele Severe cadiomyopathy - Echo of 02-25-23: The cavity size is normal. Wall thickness is normal. Systolic function is severely reduced. The estimated ejection fraction is 15-20%. Severe diffuse hypokinesis. Features are consistent with a pseudonormal left ventricular filling pattern, with concomitant abnormal relaxation and increased filling pressure (grade 2 diastolic dysfunction). Aortic valve: There is trivial regurgitation. Pulmonary arteries: Systolic pressure is in the range of 30 mm Hg to 35 mm Hg. Elevated troponin - NSTEMI vs Type 2 [place] secondary to acute CHF/severe CM H/O abnormal MPI - MPI of 01-05-[address] Griffin: Pharmacological stress test was negative for ischemia. Normal LV function with no wall motion abnormalities. Possible ischemia in the apex. Elevated TID. Coronary angiography was recommended (pt refused at that time per Dr. Griffin's note) Heavy ETOH abuse - 3 pints Vodka/day HTN Non-compliant with medications/recs/follow up Plan: * Complex management * HF treatment as tolerated by bp and renal function * Renal function improving following reduction in diuretic regimen * Management of alcohol withdrawal by the [facility] * Continue oral amiodarone which has resulted in control of vent arrhythmia. * PT/OT * Monitor labs * I discussed his CV issues in detail with his him yesterday, but he cannot do it today due to recurrent confusion * We recommend Life Vest prior to d/c (once confusion resolves) ALEX CARROLL MD FACP FACC CCDS March 06, 2023 15:11
[2023-03-06] MEDS: LORazepam 1 MG (ATIVAN) TAB PO PRN ×2 (15:16→20:39)
--- NOTE | 2023-03-06 15:29 | Progress Note ---
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 Remains confused and requiring a sitter. Awaiting placement and life vest. Objective Exam Vital Signs Date Time Temp Pulse Resp B/P (MAP) Pulse Ox O2 Delivery O2 Flow Rate FiO2 03/06/23 12:39 55 03/06/23 11:04 36.4 60 18 111/63 (79) 95 Room Air 03/06/23 08:48 65 03/06/23 08:30 Room Air 03/06/23 08:00 36.6 65 18 126/63 (84) 96 Room Air 03/06/23 03:51 36.5 65 16 124/68 (86) 96 Room Air 03/06/23 01:00 62 03/05/23 23:02 36.5 65 16 122/63 (82) 96 Room Air 03/05/23 20:00 Room Air 03/05/23 19:01 36.8 60 18 129/62 (84) 98 Room Air 03/05/23 19:00 60 03/05/23 16:29 37.0 97 18 112/60 (77) 63 Room Air I & O 03/06/23 07:00 Intake Total 1320 ml Balance 1320 ml Capillary Refill : Less Than 3 Seconds General Appearance: No Apparent Distress Respiratory: Lungs Clear Cardiovascular: Regular Rate, Rhythm Gastrointestinal: normal bowel sounds, non tender, soft Extremity: Non Tender, No Calf Tenderness, No Pedal Edema Neurologic/Psychiatric: Alert Skin: Warm/Dry Results Lab Laboratory Tests 03/06/23 05:49: White Blood Count 5.1, Red Blood Count 4.64, Hemoglobin 14.2, Hematocrit 42, Mean Corpuscular Volume 90, Mean Corpuscular Hemoglobin 31, Mean Corpuscular Hemoglobin Concent 34, Red Cell Distribution Width 13.8, Platelet Count 130, Mean Platelet Volume 11.3, Immature Granulocyte % (Auto) 0, Neutrophils (%) (Auto) 55, Lymphocytes (%) (Auto) 30, Monocytes (%) (Auto) 13H, Eosinophils (%) (Auto) 2, Basophils (%) (Auto) 0, Neutrophils # (Auto) 2.8, Lymphocytes # (Auto) 1.5, Monocytes # (Auto) 0.7, Eosinophils # (Auto) 0.1, Basophils # (Auto) 0.0, Immature Granulocyte # (Auto) 0.0, Sodium Level 135, Potassium Level 4.4, Chloride Level 106, Carbon Dioxide Level 18L, Anion Gap 11, Blood Urea Nitrogen 29H, Creatinine 1.12, Estimat Glomerular Filtration Rate 70, BUN/Creatinine Ratio 26, Glucose Level 140H, Calcium Level 9.1, Phosphorus Level 3.3, Magnesium Level 2.1 Microbiology 02/24/23 MRSA Screen - Final, Complete MRSA not isolated 02/24/23 Urine Culture - Final, Complete NO GROWTH 02/24/23 Blood Culture - Final, Complete No growth Assessment/Plan Assessment/Plan Assess & Plan/Chief Complaint 1. Chronic Alcohol Abuse with Confusion--awaiting NH placement 2. Alcoholic Cardiomyopathy with Decreased EF--medication management and awaiting life AMY Parry DO March 06, 2023 15:29
[2023-03-06 16:41] VITALS: BP 107/62
[2023-03-06 20:11] VITALS: BP 120/78
[2023-03-06] MEDS: ENOXAPARIN 40 MG/0.4 ML (LOVENOX) SYR SQ SCH (20:39)
[2023-03-06 23:13] VITALS: BP 105/63
[2023-03-07] VITALS (7 sets, daily range): BP systolic 89–130; BP diastolic 51–72
[2023-03-07] MEDS: MULTIVIT W/MINERALS TAB (THERAGRAN M) PO SCH (04:59)
[2023-03-07 05:54] LABS: BASOPHILS % (AUTO) 1 % (0-10); EOSINOPHILS # (AUTO) 0.1 10^3/uL (0.0-0.3); EOSINOPHILS % (AUTO) 2 % (0-10); HEMATOCRIT 43 % (40-54); HEMOGLOBIN 14.5 g/dL (13.3-17.7); LYMPHOCYTES # (AUTO) 1.7 10^3/uL (1.0-4.0); LYMPHOCYTES % (AUTO) 28 % (12-44); MEAN CORPUSCULAR HEMOGLOBIN 31 pg (25-34); MEAN CORPUSCULAR HGB CONC 34 g/dL (32-36); MEAN CORPUSCULAR VOLUME 91 fL (80-99); MEAN PLATELET VOLUME 11.4 fL (9.0-12.2); MONOCYTES # (AUTO) 0.7 10^3/uL (0.0-1.0); MONOCYTES % (AUTO) 11 % (0-12); NEUTROPHILS # (AUTO) 3.6 10^3/uL (1.8-7.8); NEUTROPHILS % (AUTO) 58 % (42-75); PLATELET COUNT 157 10^3/uL (130-400); WHITE BLOOD COUNT 6.1 10^3/uL (4.3-11.0)
[2023-03-07 06:02] LABS: CALCIUM 9.1 MG/DL (8.5-10.1)
[2023-03-07 06:06] LABS: CREATININE SERUM 1.2 MG/DL (0.60-1.30); PHOSPHORUS 3.5 MG/DL (2.3-4.7)
[2023-03-07] MEDS: KCL 20 MEQ TAB (K-DUR) PO SCH (06:20)
[2023-03-07] MEDS: POTASSIUM CL 10MEQ/50ML IVPB 50 ML IV SCH (06:20)
[2023-03-07] MEDS: MAGNESIUM 1 GM/100 ML IVPB 100 ML IV SCH (06:20)
[2023-03-07] MEDS: HALOPERIDOL 0.5 MG (HALDOL) TAB PO SCH ×3 (08:44→20:22)
[2023-03-07] MEDS: PANTOPRAZOLE 40 MG (PROTONIX) TAB PO SCH (08:44)
[2023-03-07] MEDS: SPIRONOLACTONE 25 MG (ALDACTONE) TAB PO SCH (08:44)
[2023-03-07] MEDS: FOLIC ACID 1 MG TAB PO SCH (08:44)
[2023-03-07] MEDS: SACUBITRIL/VALSARTAN 24/26 MG (ENTRESTO) TABLET PO SCH ×2 (08:45→20:22)
[2023-03-07] MEDS: ASPIRIN E.C. 81 MG (ECOTRIN) TAB PO SCH (08:45)
[2023-03-07] MEDS: EMPAGLIFLOZIN 10 MG TABLET (JARDIANCE) PO SCH (08:47)
[2023-03-07] MEDS: POVIDONE (BETADINE) 10% SOLN 240 ML BTL TOP SCH ×2 (08:47→20:22)
--- NOTE | 2023-03-07 09:22 | Progress Note ---
Subjective Date Seen by a Provider: March 07, 2023 Time Seen by a Provider: 09:20 Subjective/Events-last exam Fwup alcohol abuse with recent withdrawal, alcohol cardiomyopathy with EF of 15- 20%. Awake and asking about getting a copy of the menu so he can hire someone to make healthier meals. Also telling me he will be going to visit places in [facility] and [place] tomorrow. Objective Exam Vital Signs Date Time Temp Pulse Resp B/P (MAP) Pulse Ox O2 Delivery O2 Flow Rate FiO2 03/07/23 08:23 60 03/07/23 08:01 35.7 56 18 89/51 (64) 98 Room Air 03/07/23 03:24 36.5 62 16 118/66 (83) 98 Room Air 03/07/23 01:14 56 03/06/23 23:13 36.5 63 16 105/63 (77) 97 Room Air 03/06/23 20:11 36.5 63 16 120/78 (92) 97 Room Air 03/06/23 20:00 Room Air 03/06/23 19:00 56 03/06/23 16:41 36.8 59 16 107/62 (77) 96 Room Air 03/06/23 12:39 55 03/06/23 11:04 36.4 60 18 111/63 (79) 95 Room Air I & O 03/07/23 06:59 Intake Total 3300 ml Output Total 6 ml Balance 3294 ml Capillary Refill : Less Than 3 Seconds General Appearance: No Apparent Distress Respiratory: Lungs Clear Cardiovascular: Regular Rate, Rhythm Gastrointestinal: normal bowel sounds, non tender, soft Extremity: Non Tender, No Calf Tenderness, No Pedal Edema Neurologic/Psychiatric: Alert Results Lab Laboratory Tests 03/07/23 05:31: White Blood Count 6.1, Red Blood Count 4.70, Hemoglobin 14.5, Hematocrit 43, Mean Corpuscular Volume 91, Mean Corpuscular Hemoglobin 31, Mean Corpuscular Hemoglobin Concent 34, Red Cell Distribution Width 13.9, Platelet Count 157, Mean Platelet Volume 11.4, Immature Granulocyte % (Auto) 0, Neutrophils (%) (Auto) 58, Lymphocytes (%) (Auto) 28, Monocytes (%) (Auto) 11, Eosinophils (%) (Auto) 2, Basophils (%) (Auto) 1, Neutrophils # (Auto) 3.6, Lymphocytes # (Auto) 1.7, Monocytes # (Auto) 0.7, Eosinophils # (Auto) 0.1, Basophils # (Auto) 0.0, Immature Granulocyte # (Auto) 0.0, Sodium Level 135, Potassium Level 4.0, Chloride Level 103, Carbon Dioxide Level 18L, Anion Gap 14, Blood Urea Nitrogen 26H, Creatinine 1.20, Estimat Glomerular Filtration Rate 64, BUN/Creatinine Ratio 22, Glucose Level 184H, Calcium Level 9.1, Phosphorus Level 3.5, Magnesium Level 2.0 Microbiology 02/24/23 MRSA Screen - Final, Complete MRSA not isolated 02/24/23 Urine Culture - Final, Complete NO GROWTH 02/24/23 Blood Culture - Final, Complete No growth Assessment/Plan Assessment/Plan Assess & Plan/Chief Complaint 1. Chronic Alcohol Abuse with Confusion--awaiting NH placement 2. Alcoholic Cardiomyopathy with Decreased EF--medication management and awaiting life AMY Parry DO March 07, 2023 09:22
[2023-03-07] MEDS: FUROSEMIDE 40 MG (LASIX) TAB PO SCH (09:34)
[2023-03-07] MEDS: AMIODARONE 200 MG (CORDARONE) TAB PO SCH ×2 (09:34→20:22)
--- NOTE | 2023-03-07 17:05 | Progress Note - Cardiology ---
Cardiology SOAP Progress Note Subjective: No cp or palp or syncope or shortness of breath No n/v/d No focal weakness Gen weakness and malaise Objective: I&O/Vital Signs 03/07/23 03/07/23 03/07/23 03/07/23 08:00 08:01 08:23 10:07 Temp 35.7 35.7 Pulse 56 60 62 Resp 18 18 B/P (MAP) 89/51 (64) 100/58 (72) Pulse Ox 98 98 O2 Delivery Room Air Room Air Room Air 03/07/23 03/07/23 03/07/23 12:14 13:59 16:17 Temp 35.8 35.6 Pulse 57 61 60 Resp 18 18 B/P (MAP) 130/70 (90) 120/72 (88) Pulse Ox 99 99 O2 Delivery Room Air Room Air 03/07/23 00:00 Intake Total 3000 ml Output Total 6 ml Balance 2994 ml Weight (Pounds): 188 Weight (Ounces): 0.0 Weight (Calculated Kilograms): 85.516800 Constitutional: well-developed, well-nourished, other (appropriately responsive today, mildly confused) Respiratory: chest expansion is symmetric, chest is bilaterally symmetric, other Cardiovascular: regular rate-rhythm, S1 and S2, systolic murmur Gastrointestional: soft, audible bowel sounds Extremities: no lower extremity edema bilateral Neurologic/Psychiatric: other (moves all limbs) Skin: No rash on exposed areas, No ulcerations on exposed areas Results/Procedures: Labs Laboratory Tests 03/07/23 05:31: White Blood Count 6.1, Red Blood Count 4.70, Hemoglobin 14.5, Hematocrit 43, Mean Corpuscular Volume 91, Mean Corpuscular Hemoglobin 31, Mean Corpuscular Hemoglobin Concent 34, Red Cell Distribution Width 13.9, Platelet Count 157, Mean Platelet Volume 11.4, Immature Granulocyte % (Auto) 0, Neutrophils (%) (Auto) 58, Lymphocytes (%) (Auto) 28, Monocytes (%) (Auto) 11, Eosinophils (%) (Auto) 2, Basophils (%) (Auto) 1, Neutrophils # (Auto) 3.6, Lymphocytes # (Auto) 1.7, Monocytes # (Auto) 0.7, Eosinophils # (Auto) 0.1, Basophils # (Auto) 0.0, Immature Granulocyte # (Auto) 0.0, Sodium Level 135, Potassium Level 4.0, Chloride Level 103, Carbon Dioxide Level 18L, Anion Gap 14, Blood Urea Nitrogen 26H, Creatinine 1.20, Estimat Glomerular Filtration Rate 64, BUN/Creatinine Ratio 22, Glucose Level 184H, Calcium Level 9.1, Phosphorus Level 3.5, Magnesium Level 2.0 Microbiology 02/24/23 MRSA Screen - Final, Complete MRSA not isolated 02/24/23 Urine Culture - Final, Complete NO GROWTH 02/24/23 Blood Culture - Final, Complete No growth Laboratory Tests 03/06/23 05:49 03/07/23 05:31 A/P: Assessment: Confusion - likely alcohol withdrawal - confusion varies significantly - management per Medical services Ac renal failure - likely volume depletion due to diuretics to treat heart failure - improving with reduction in diuretic regimen Acute systolic CHF - Echocardiiogram of 12-30-[address] Griffin showed LVEF 55-65%; concentric hypertrophy; grade 1 diastolic dysfunction. Mild to mod AoR. PASP 40 mmHg Frequent ventricular ectopy - no further episodes on tele Severe cadiomyopathy - Echo of 02-25-23: The cavity size is normal. Wall thickness is normal. Systolic function is severely reduced. The estimated ejection fraction is 15-20%. Severe diffuse hypokinesis. Features are consistent with a pseudonormal left ventricular filling pattern, with concomitant abnormal relaxation and increased filling pressure (grade 2 diastolic dysfunction). Aortic valve: There is trivial regurgitation. Pulmonary arteries: Systolic pressure is in the range of 30 mm Hg to 35 mm Hg. Elevated troponin - NSTEMI vs Type 2 [place] secondary to acute CHF/severe CM H/O abnormal MPI - MPI of 01-05-[address] Griffin: Pharmacological stress test was negative for ischemia. Normal LV function with no wall motion abnormalities. Possible ischemia in the apex. Elevated TID. Coronary angiography was recommended (pt refused at that time per Dr. Griffin's note) Heavy ETOH abuse - 3 pints Vodka/day HTN Non-compliant with medications/recs/follow up Plan: * Complex management * HF treatment as tolerated by bp and renal function * Renal function improving following reduction in diuretic regimen * Management of alcohol withdrawal by the [facility] * Continue oral amiodarone which has resulted in control of vent arrhythmia. * PT/OT * Monitor labs * I discussed his CV issues in detail with his him yesterday, but he cannot do it today due to recurrent confusion * We recommend Life Vest prior to d/c (once confusion resolves) ALEX CARROLL MD FACP FAC CCDS March 07, 2023 17:05
[2023-03-07] MEDS: ENOXAPARIN 40 MG/0.4 ML (LOVENOX) SYR SQ SCH (20:22)
[2023-03-08 03:14] VITALS: BP 111/54
[2023-03-08] MEDS: MULTIVIT W/MINERALS TAB (THERAGRAN M) PO SCH (06:13)
[2023-03-08 06:33] LABS: POTASSIUM 4.2 MMOL/L (3.6-5.0)
[2023-03-08 06:35] LABS: CALCIUM 8.9 MG/DL (8.5-10.1)
[2023-03-08 06:39] LABS: CREATININE SERUM 1.22 MG/DL (0.60-1.30)
[2023-03-08] MEDS: POTASSIUM CL 10MEQ/50ML IVPB 50 ML IV SCH (06:40)
[2023-03-08] MEDS: KCL 20 MEQ TAB (K-DUR) PO SCH (06:41)
[2023-03-08] MEDS: MAGNESIUM 1 GM/100 ML IVPB 100 ML IV SCH (06:49)
[2023-03-08 07:39] VITALS: BP 117/64
--- NOTE | 2023-03-08 08:15 | Progress Note ---
Subjective Subjective Date Seen by Provider: March 08, 2023 Time Seen by Provider: 08:40 Pt is a 72 y/o male who is hospitalized for Alcoholic Cardiomyopathy, Chronic alcoholism with withdrawal.This morning he reports that he is feeling better. His sister states that he is will and seems to be ready to go to the skilled nursing for therapies. They are waiting on a rejection or acceptance from the facility. Bill denies chest pain, does have shortness of breath with activity Review of Systems General: No Chills; Fatigue, Malaise HEENT: No Head Aches; Visual Changes Pulmonary: Dyspnea; No Cough Cardiovascular: No: Chest Pain, Palpitations Gastrointestinal: No: Nausea, Abdominal Pain Neurological: Weakness; No: Confusion All Other Systems Reviewed All Other Systems Reviewed: Yes Objective Exam Vital Signs Vital Signs Date Time Temp Pulse Resp B/P (MAP) Pulse Ox O2 Delivery O2 Flow Rate FiO2 03/08/23 07:39 36.7 58 18 117/64 (81) 96 Room Air 03/08/23 03:14 36.5 62 16 111/54 (73) 96 Room Air 03/08/23 02:39 46 03/08/23 01:00 55 03/07/23 23:01 36.4 63 16 126/72 (90) 96 Room Air 03/07/23 20:00 Room Air 03/07/23 19:35 37.0 61 18 122/58 (79) 98 Room Air 03/07/23 19:00 58 03/07/23 16:17 35.6 60 18 120/72 (88) 99 Room Air 03/07/23 13:59 61 03/07/23 12:14 35.8 57 18 130/70 (90) 99 Room Air 03/07/23 10:07 35.7 62 18 100/58 (72) 98 Room Air 03/07/23 08:23 60 I & O 03/08/23 07:00 Intake Total 2190 ml Balance 2190 ml General Appearance: No Apparent Distress HEENT: PERRL/EOMI Neck: Non Tender, Supple Respiratory: Lungs Clear Cardiovascular: Regular Rate, Rhythm Gastrointestinal: Normal Bowel Sounds, Non Tender, Soft Back: No CVA Tenderness Extremity: Non Tender, No Calf Tenderness, No Pedal Edema Neurologic/Psychiatric: Alert Skin: Warm/Dry Results Lab Laboratory Tests 03/08/23 06:13: Sodium Level 136, Potassium Level 4.2, Chloride Level 105, Carbon Dioxide Level 21, Anion Gap 10, Blood Urea Nitrogen 21H, Creatinine 1.22, Estimat Glomerular Filtration Rate 63, BUN/Creatinine Ratio 17, Glucose Level 151H, Calcium Level 8.9, Magnesium Level 2.0 Microbiology 02/24/23 MRSA Screen - Final, Complete MRSA not isolated 02/24/23 Urine Culture - Final, Complete NO GROWTH 02/24/23 Blood Culture - Final, Complete No growth Assessment/Plan Assessment/Plan Admission Dx Acute systolic congestion heart failure due to cardiomyopathy from alcoholism Alcoholism History of alcohol withdrawal seizures Elevated troponin Medication noncompliance Assessment and Plan Acute systolic congestion heart failure due to cardiomyopathy from alcoholism Alcoholism History of alcohol withdrawal seizures Elevated troponin Medication noncompliance Aggressive behavior with staff Hypotension Generalized weakness Acute systolic congestion heart failure due to cardiomyopathy from alcoholism - consult to Dr. Jang - see his note for full details - pt on amiodarone 400mg bid, [id number], entresto 24/26mg, lasix 20mg iv bid, carvedilol 3.125mg bid, EF of 15 - 20%, down significantly from 2019 echo report. - Jet will need close follow up as outpatient due to his heart failure. - his alcoholism is the primary cause of his cardiovascular compromise. Alcoholism with History of alcohol withdrawal seizures - [facility] protocol - close and aggressive monitoring - he was still intoxicated on admission to hospital. Elevated troponin - defer to cardiology - may be due to NSTEMI versus heart failure causing elevated troponin Medication noncompliance - will need close, consistent follow up. Aggressive behavior with staff improved after coming down from alcohol intoxication -pt improving, sleepy now, not aggressive as previous when acutely withdraw ing from alcohol. Generalized weakness - pt has gait instability due to his alcoholism and lack of activity at home Acute renal failure - improved after fluid supplementation He may benefit from inpatient rehab on DC due to his weakness. started PT/OT - Last admission we had him set up for NH for SNF - but he left AMA. DVT prophylaxis with scd's and anticoag. GI Prophylaxis with ppi. PT at VERY high risk of in-hospital due to his hx of DT's and his acutely compromised cardiovascular status Admission Dx Acute systolic congestion heart failure due to cardiomyopathy from alcoholism Alcoholism History of alcohol withdrawal seizures Elevated troponin Medication noncompliance Clinical Quality Measures Admission Status Admission Dx Acute systolic congestion heart failure due to cardiomyopathy from alcoholism Alcoholism History of alcohol withdrawal seizures Elevated troponin Medication noncompliance KARLI ANTUNEZ MD March 08, 2023 08:15
[2023-03-08] MEDS: SACUBITRIL/VALSARTAN 24/26 MG (ENTRESTO) TABLET PO SCH ×2 (08:51→20:30)
[2023-03-08] MEDS: ASPIRIN E.C. 81 MG (ECOTRIN) TAB PO SCH (08:51)
[2023-03-08] MEDS: PANTOPRAZOLE 40 MG (PROTONIX) TAB PO SCH (08:51)
[2023-03-08] MEDS: FOLIC ACID 1 MG TAB PO SCH (08:51)
[2023-03-08] MEDS: HALOPERIDOL 0.5 MG (HALDOL) TAB PO SCH ×3 (08:51→20:30)
[2023-03-08] MEDS: FUROSEMIDE 40 MG (LASIX) TAB PO SCH (08:51)
[2023-03-08] MEDS: AMIODARONE 200 MG (CORDARONE) TAB PO SCH ×2 (08:52→20:30)
[2023-03-08] MEDS: SPIRONOLACTONE 25 MG (ALDACTONE) TAB PO SCH (08:52)
[2023-03-08] MEDS: EMPAGLIFLOZIN 10 MG TABLET (JARDIANCE) PO SCH (08:52)
[2023-03-08] MEDS: POVIDONE (BETADINE) 10% SOLN 240 ML BTL TOP SCH ×2 (08:52→20:30)
--- NOTE | 2023-03-08 09:05 | Progress Note - Cardiology ---
Cardiology SOAP Progress Note Objective: I&O/Vital Signs 03/09/23 03/10/23 03/10/23 23:07 04:15 07:14 Temp 36.6 36.8 36.3 Pulse 62 72 53 Resp 18 18 20 B/P (MAP) 99/52 (68) 105/58 (74) 122/72 (89) Pulse Ox 94 97 97 O2 Delivery Room Air Room Air Room Air 03/10/23 00:00 Intake Total 2050 ml Balance 2050 ml Weight (Pounds): 188 Weight (Ounces): 0.0 Weight (Calculated Kilograms): 85.902836 Constitutional: well-developed, well-nourished, other (appropriately responsive today, mildly confused) Respiratory: chest expansion is symmetric, chest is bilaterally symmetric, other Cardiovascular: regular rate-rhythm, S1 and S2, systolic murmur Gastrointestional: soft, audible bowel sounds Extremities: no lower extremity edema bilateral Neurologic/Psychiatric: other (moves all limbs) Skin: No rash on exposed areas, No ulcerations on exposed areas Results/Procedures: Labs Laboratory Tests 03/10/23 05:30: Sodium Level 136, Potassium Level 4.4, Chloride Level 103, Carbon Dioxide Level 23, Anion Gap 10, Blood Urea Nitrogen 29H, Creatinine 1.19, Estimat Glomerular Filtration Rate 65, BUN/Creatinine Ratio 24, Glucose Level 124H, Calcium Level 9.0, Magnesium Level 2.0 Microbiology 02/24/23 MRSA Screen - Final, Complete MRSA not isolated 02/24/23 Urine Culture - Final, Complete NO GROWTH 02/24/23 Blood Culture - Final, Complete No growth A/P: Assessment: Confusion - likely alcohol withdrawal - confusion varies significantly - management per Medical services Ac renal failure - likely volume depletion due to diuretics to treat heart failure - improving with reduction in diuretic regimen Acute systolic CHF - Echocardiiogram of 12-30-[address] Griffin showed LVEF 55-65%; concentric hypertrophy; grade 1 diastolic dysfunction. Mild to mod AoR. PASP 40 mmHg Frequent ventricular ectopy - no further episodes on tele Severe cadiomyopathy - Echo of 02-25-23: The cavity size is normal. Wall thickness is normal. Systolic function is severely reduced. The estimated ejection fraction is 15-20%. Severe diffuse hypokinesis. Features are consistent with a pseudonormal left ventricular filling pattern, with concomitant abnormal relaxation and increased filling pressure (grade 2 diastolic dysfunction). Aortic valve: There is trivial regurgitation. Pulmonary arteries: Systolic pressure is in the range of 30 mm Hg to 35 mm Hg. Elevated troponin - NSTEMI vs Type 2 [place] secondary to acute CHF/severe CM H/O abnormal MPI - MPI of 3-7-[address] Griffin: Pharmacological stress test was negative for ischemia. Normal LV function with no wall motion abnormalities. Possible ischemia in the apex. Elevated TID. Coronary angiography was recommended (pt refused at that time per Dr. Griffin's note) Heavy ETOH abuse - 3 pints Vodka/day HTN Non-compliant with medications/recs/follow up Plan: * Complex management * Intermittent confusion - management per medical services * HF treatment as tolerated by bp and renal function * Renal function improving following reduction in diuretic regimen * Management of alcohol withdrawal by the [facility] * Continue oral amiodarone which has resulted in control of vent arrhythmia. * PT/OT * Monitor labs * We recommend Life Vest prior to d/c (once confusion resolves) EVAN LOCKETT March 08, 2023 09:05
--- NOTE | 2023-03-08 10:55 | Physical Therapy Daily Note ---
PT Daily Note-Current Subjective Patient and family agree to PT. Pain Section J - Health Conditions 1. Rarely or not at all 2. Occasionally 3. Frequently 4. Almost constantly 8. Unable to answer Pain Effect on Sleep: 1 Pain Interference with Therapy: 1 Pain Interference w/Day-to-Day: 1 Transfers SCALE: Activities may be completed with or without assistive devices. 2-Edlfwtiwyu-cpwhaof completes the activity by him/herself with no assistance from a helper. 5-Set-up or Clean-up Assistance-helper sets up or cleans up; patient completes activity. [place] assists only prior to or following the activity. 4-Supervision or Touching Assistance-helper provides verbal cues and/or touching/steadying and/or contact guard assistance as patient completes activity. Assistance may be provided throughout the activity or intermittently. 3-Partial/Moderate Assistance-helper does LESS THAN HALF the effort. [place] lifts, holds or supports trunk or limbs, but provides less than half the effort. 2-Substantial/Maximal Assistance-helper does MORE THAN HALF the effort. [place] lifts or holds trunk or limbs and provides more than half the effort. 2-Gfbzitdce-zipejf does ALL the effort. Patient does none of the effort to complete the activity. Or, the assistance of 2 or more helpers is required for the patient to complete the activity. If activity was not attempted, code reason: 7-Patient Refused. 9-Not Applicable-not attempted and the patient did not perform the activity before the current illness, exacerbation or injury. 10-Not Attempted due to Environmental Limitations-(lack of equipment, weather restraints, etc.). 88-Not Attempted due to Medical Conditions or Safety Concerns. Sit to Stand (QC): 4 Gait Training Distance: 500' Walk 10 feet (QC): 4 Walk 50 ft with 2 Turns(QC): 4 Walk 150 ft (QC): 4 Gait Assistive Device: None BANK RUNNER/improved gait sequence Assessment Patient much improved on this date with mentation and gross motor skills. Patient does demonstrate WBOS with gait sequence, but functional. PT Jail Goals Loss Prevention Coordinator Goals PT Loss Prevention Coordinator Goals Time Frame: March 20, 2023 Roll Left & Right (QC): 4 Sit to Lying (QC): 4 Lying-Sitting on Side/Bed(QC): 4 Sit to Stand (QC): 4 Chair/Gvj-wd-Bbvli Xfer(QC): 4 Toilet Transfer (QC): 4 Walk 10 feet (QC): 4 Walk 50ft with 2 Turns (QC): 4 Walk 150 ft (QC): 4 PT Plan Treatment/Plan Treatment Plan: Continue Plan of Care Treatment Plan: Bed Mobility, Education, Functional Activity Rick, Functional Strength, Gait, Safety, Therapeutic Exercise, Transfers Treatment Duration: March 20, 2023 Frequency: 6 times per week Estimated Hrs Per Day: .25 hour per day Time Time In: 1027 Time Out: 1037 DATE: March 08, 2023 Total Billed Treatment Time: 10 Total Billed Treatment 1 visit FA 10 min LEE GAO PT March 08, 2023 10:55
[2023-03-08 11:50] VITALS: BP 104/63
--- NOTE | 2023-03-08 11:52 | Occupational Ther Daily Note ---
OT Current Status-Daily Note Subjective Up in room ambulating w/ sister on occasion Mental Status/Objective Patient Orientation: Person, Situation ADL-Treatment Therapy Code Descriptions/Definitions Functional [place] Measure: 0=Not Assessed/NA 4=Minimal Assistance 1=Total Assistance 5=Supervision or Setup 2=Maximal Assistance 6=Modified [place] 3=Moderate Assistance 7=Complete IndependenceSCALE: Activities may be completed with or without assistive devices. 1-Dgriumgvko-vbrqizc completes the activity by him/herself with no assistance from a helper. 5-Set-up or Clean-up Assistance-helper sets up or cleans up; patient completes activity. [place] assists only prior to or following the activity. 4-Supervision or Touching Assistance-helper provides verbal cues and/or touching/steadying and/or contact guard assistance as patient completes activity. Assistance may be provided throughout the activity or intermittently. 3-Partial/Moderate Assistance-helper does LESS THAN HALF the effort. [place] lifts, holds or supports trunk or limbs, but provides less than half the effort. 2-Substantial/Maximal Assistance-helper does MORE THAN HALF the effort. [place] lifts or holds trunk or limbs and provides more than half the effort. 0-Fbcrbkddu-ozkdeg does ALL the effort. Patient does none of the effort to complete the activity. Or, the assistance of 2 or more helpers is required for the patient to complete the activity. If activity was not attempted, code reason: 7-Patient Refused. 9-Not Applicable-not attempted and the patient did not perform the activity before the current illness, exacerbation or injury. 10-Not Attempted due to Environmental Limitations-(lack of equipment, weather restraints, etc.). 88-Not Attempted due to Medical Conditions or Safety Concerns. Eating (QC): 5 Oral Hygiene (QC): 5 (standing at sink, no AD,sways w/ weight shifting) Shower/Bathe Self (QC): 7 Upper Body Dressing (QC): 4 Lower Body Dressing (QC): 4 On/Off Footwear: 4 Toileting Hygiene (QC): 4 Toilet Transfer (QC): 4 Education OT Patient Education: Modified ADL techniques, Progress toward Goal/Update tx plan, Purpose of tx/functional activities, Reviewed precautions, Rehab process, Safety issues Teaching Recipient: Patient, Family Teaching Methods: Demonstration, Discussion Response to Teaching: Reinforcement Needed OT Mcfp Goals Pharm Spec Goals Toileting Hygiene (QC): 4 Shower/Bathe Self (QC): 4 Upper Body Dressing (QC): 4 Lower Body Dressing (QC): 4 On/Off Footwear (QC): 4 1=Demonstrate adherence to instructed precautions during ADL tasks. 2=Patient will verbalize/demonstrate understanding of assistive devices/modifications for ADL. 3=Patient will improve strength/tolerance for activity to enable patient to perform ADL's. OT Education/Plan Problem List/Assessment Assessment: Decreased Safety Aware, Impaired Coordination, Impaired Funct Balance, Impaired Self-Care Skills Discharge Recommendations Plan/Recommendations: Continue POC Treatment Plan/Plan of Care Patient would benefit from OT for education, treatment and training to promote independence in ADL's, mobility, safety and/or upper extremity function for ADL's. Plan of Care: ADL Retraining, Functional Mobility, Group Exercise/Act as Ind, UE Funct Exercise/Act Treatment Duration: March 06, 2023 Frequency: 3 times per week (3-5 times per week) Estimated Hrs Per Day: .25 hour per day Rehab Potential: Guarded Time Start Time: 10:30 Stop Time: 10:50 DATE: March 08, 2023 Total Time Billed (hr/min): 20 Billed Treatment Time ADL 20 min ALONZO DAVIS OT March 08, 2023 11:52
[2023-03-08] MEDS: LORazepam INJ 2 MG/ML (ATIVAN) VIAL IV PRN (13:22)
--- NOTE | 2023-03-08 13:22 | Progress Note - Cardiology ---
Cardiology SOAP Progress Note Subjective: No cp or palp or syncope No n/v/d No focal weakness Gen weakness and malaise Objective: I&O/Vital Signs 03/08/23 03/08/23 03/08/23 03/08/23 02:39 03:14 07:39 09:57 Temp 36.5 36.7 Pulse 46 62 58 57 Resp 16 18 B/P (MAP) 111/54 (73) 117/64 (81) Pulse Ox 96 96 O2 Delivery Room Air Room Air 03/08/23 11:50 Temp 36.5 Pulse 58 Resp 20 B/P (MAP) 104/63 (77) Pulse Ox 97 O2 Delivery Room Air 03/08/23 00:00 Intake Total 1790 ml Balance 1790 ml Weight (Pounds): 188 Weight (Ounces): 0.0 Weight (Calculated Kilograms): 85.584131 Constitutional: well-developed, well-nourished, other (appropriately responsive today, mildly confused) Respiratory: chest expansion is symmetric, chest is bilaterally symmetric, other Cardiovascular: regular rate-rhythm, S1 and S2, systolic murmur Gastrointestional: soft, audible bowel sounds Extremities: no lower extremity edema bilateral Neurologic/Psychiatric: other (moves all limbs) Skin: No rash on exposed areas, No ulcerations on exposed areas Results/Procedures: Labs Laboratory Tests 03/08/23 06:13: Sodium Level 136, Potassium Level 4.2, Chloride Level 105, Carbon Dioxide Level 21, Anion Gap 10, Blood Urea Nitrogen 21H, Creatinine 1.22, Estimat Glomerular Filtration Rate 63, BUN/Creatinine Ratio 17, Glucose Level 151H, Calcium Level 8.9, Magnesium Level 2.0 Microbiology 02/24/23 MRSA Screen - Final, Complete MRSA not isolated 02/24/23 Urine Culture - Final, Complete NO GROWTH 02/24/23 Blood Culture - Final, Complete No growth Laboratory Tests 03/07/23 05:31 03/08/23 06:13 A/P: Assessment: Confusion - likely alcohol withdrawal - confusion varies significantly - management per Medical services Ac renal failure - likely volume depletion due to diuretics to treat heart failure - improving with reduction in diuretic regimen Acute systolic CHF - Echocardiiogram of 12-30-[address] Griffin showed LVEF 55-65%; concentric hypertrophy; grade 1 diastolic dysfunction. Mild to mod AoR. PASP 40 mmHg Frequent ventricular ectopy - no further episodes on tele Severe cadiomyopathy - Echo of 02-25-23: The cavity size is normal. Wall thickness is normal. Systolic function is severely reduced. The estimated ejection fraction is 15-20%. Severe diffuse hypokinesis. Features are consistent with a pseudonormal left ventricular filling pattern, with concomitant abnormal relaxation and increased filling pressure (grade 2 diastolic dysfunction). Aortic valve: There is trivial regurgitation. Pulmonary arteries: Systolic pressure is in the range of 30 mm Hg to 35 mm Hg. Elevated troponin - NSTEMI vs Type 2 [place] secondary to acute CHF/severe CM H/O abnormal MPI - MPI of 01-05-[address] Griffin: Pharmacological stress test was negative for ischemia. Normal LV function with no wall motion abnormalities. Possible ischemia in the apex. Elevated TID. Coronary angiography was recommended (pt refused at that time per Dr. rGiffin's note) Heavy ETOH abuse - 3 pints Vodka/day HTN Non-compliant with medications/recs/follow up Plan: * Complex management * Intermittent confusion - management per Medical services * HF treatment as tolerated by bp and renal function * Renal function improving following reduction in diuretic regimen * [facility] of [facility] withdrawal by [facility] * Continue oral amiodarone which has resulted in control of vent arrhythmia. * PT/OT * Monitor labs * We recommend Life Vest prior to d/c (once confusion resolves) * He has intermittently been noncompliant with tele, yet wants everything done. We advised him to be compliant with tele. He understands and states will do so ALEX CARROLL [facility] March 08, 2023 13:22
[2023-03-08 15:58] VITALS: BP 124/60
[2023-03-08 19:46] VITALS: BP 137/76
[2023-03-08] MEDS: ENOXAPARIN 40 MG/0.4 ML (LOVENOX) SYR SQ SCH (20:29)
[2023-03-08 23:32] VITALS: BP 102/53
[2023-03-09 03:21] VITALS: BP 98/57
[2023-03-09 05:50] LABS: POTASSIUM 4.1 MMOL/L (3.6-5.0)
[2023-03-09 05:55] LABS: CREATININE SERUM 1.28 MG/DL (0.60-1.30)
[2023-03-09 05:57] LABS: MAGNESIUM 2.1 MG/DL (1.6-2.4)
[2023-03-09] MEDS: POTASSIUM CL 10MEQ/50ML IVPB 50 ML IV SCH (05:58)
[2023-03-09] MEDS: KCL 20 MEQ TAB (K-DUR) PO SCH (05:58)
[2023-03-09] MEDS: MAGNESIUM 1 GM/100 ML IVPB 100 ML IV SCH (06:19)
[2023-03-09] MEDS: MULTIVIT W/MINERALS TAB (THERAGRAN M) PO SCH (06:27)
[2023-03-09 09:14] VITALS: BP 117/71
[2023-03-09] MEDS: ASPIRIN E.C. 81 MG (ECOTRIN) TAB PO SCH (09:19)
[2023-03-09] MEDS: SACUBITRIL/VALSARTAN 24/26 MG (ENTRESTO) TABLET PO SCH ×2 (09:19→20:46)
[2023-03-09] MEDS: PANTOPRAZOLE 40 MG (PROTONIX) TAB PO SCH (09:20)
[2023-03-09] MEDS: SPIRONOLACTONE 25 MG (ALDACTONE) TAB PO SCH (09:20)
[2023-03-09] MEDS: FOLIC ACID 1 MG TAB PO SCH (09:20)
[2023-03-09] MEDS: FUROSEMIDE 40 MG (LASIX) TAB PO SCH (09:20)
[2023-03-09] MEDS: HALOPERIDOL 0.5 MG (HALDOL) TAB PO SCH ×3 (09:20→20:46)
[2023-03-09] MEDS: AMIODARONE 200 MG (CORDARONE) TAB PO SCH ×2 (09:20→20:46)
[2023-03-09] MEDS: POVIDONE (BETADINE) 10% SOLN 240 ML BTL TOP SCH ×2 (09:20→20:47)
[2023-03-09] MEDS: EMPAGLIFLOZIN 10 MG TABLET (JARDIANCE) PO SCH (09:20)
--- NOTE | 2023-03-09 11:45 | Physical Therapy Progress Note ---
Therapy Progress Note Patient observed ambulating in hallway with nursing staff independently. PT to dismiss patient from services at this time. SW and nursing notified. LEE GAO PT March 09, 2023 11:45
[2023-03-09 12:00] VITALS: BP 122/62
[2023-03-09 15:26] VITALS: BP 110/58
--- NOTE | 2023-03-09 15:33 | Progress Note - Cardiology ---
Cardiology SOAP Progress Note Subjective: No cp or palp or syncope Gen weakness, improving No focal weakness No n/v/d No shortness of breath with moderate activity Objective: I&O/Vital Signs 03/09/23 03/09/23 03/09/23 03/09/23 09:00 09:14 12:00 15:26 Temp 36.8 36.4 36.4 Pulse 62 60 59 Resp 18 16 18 B/P (MAP) 117/71 (86) 122/62 (82) 110/58 (75) Pulse Ox 94 95 96 O2 Delivery Room Air Room Air Room Air Room Air 03/09/23 00:00 Intake Total 800 ml Balance 800 ml Weight (Pounds): 188 Weight (Ounces): 0.0 Weight (Calculated Kilograms): 85.913198 Constitutional: well-developed, well-nourished, other (appropriately responsive today, mildly confused) Respiratory: chest expansion is symmetric, chest is bilaterally symmetric, other Cardiovascular: regular rate-rhythm, S1 and S2, systolic murmur Gastrointestional: soft, audible bowel sounds Extremities: no lower extremity edema bilateral Neurologic/Psychiatric: other (moves all limbs) Skin: No rash on exposed areas, No ulcerations on exposed areas Results/Procedures: Labs Laboratory Tests 03/09/23 05:06: Sodium Level 137, Potassium Level 4.1, Chloride Level 104, Carbon Dioxide Level 23, Anion Gap 10, Blood Urea Nitrogen 27H, Creatinine 1.28, Estimat Glomerular Filtration Rate 59, BUN/Creatinine Ratio 21, Glucose Level 126H, Calcium Level 9.0, Magnesium Level 2.1 Microbiology 02/24/23 MRSA Screen - Final, Complete MRSA not isolated 02/24/23 Urine Culture - Final, Complete NO GROWTH 02/24/23 Blood Culture - Final, Complete No growth Laboratory Tests 03/08/23 06:13 03/09/23 05:06 A/P: Assessment: Confusion - likely alcohol withdrawal - confusion varies significantly - management per Medical services Ac renal failure - likely volume depletion due to diuretics to treat heart failure - improving with reduction in diuretic regimen Acute systolic CHF - Echocardiiogram of 12-30-[address] Griffin showed LVEF 55-65%; concentric hyp ertrophy; grade 1 diastolic dysfunction. Mild to mod AoR. PASP 40 mmHg Frequent ventricular ectopy - no further episodes on tele Severe cadiomyopathy - Echo of 02-25-23: The cavity size is normal. Wall thickness is normal. Systolic function is severely reduced. The estimated ejection fraction is 15-20%. Severe diffuse hypokinesis. Features are consistent with a pseudonormal left ventricular filling pattern, with concomitant abnormal relaxation and increased filling pressure (grade 2 diastolic dysfunction). Aortic valve: There is trivial regurgitation. Pulmonary arteries: Systolic pressure is in the range of 30 mm Hg to 35 mm Hg. Elevated troponin - NSTEMI vs Type 2 [place] secondary to acute CHF/severe CM H/O abnormal MPI - MPI of 01-05-[address] Griffin: Pharmacological stress test was negative for ischemia. Normal LV function with no wall motion abnormalities. Possible ischemia in the apex. Elevated TID. Coronary angiography was recommended (pt refused at that time per Dr. Griffin's note) Heavy ETOH abuse - 3 pints Vodka/day HTN Non-compliant with medications/recs/follow up Plan: * Complex management * Intermittent confusion - management per Medical services * HF treatment as tolerated by bp and renal function * Renal function stable following reduction in diuretic regimen * Management of alcohol withdrawal by the [facility] * Continue oral amiodarone which has resulted in control of vent arrhythmia. * PT/OT * Monitor labs * We again discussed his CV issues and our treatment plan * We advised compliance with meds and Life Vest if he wishes to have everything done in efforts to extend his life span and improve the quality of his life ALEX CARROLL MD [facility] March 09, 2023 15:33
--- NOTE | 2023-03-09 18:31 | Progress Note ---
Subjective Subjective Date Seen by Provider: March 09, 2023 Time Seen by Provider: 09:10 Pt is a 72 y/o male who is hospitalized for Alcoholic Cardiomyopathy, Chronic alcoholism with withdrawal. He had an active night with delirium, weakness, paranoia. They are waiting on a rejection or acceptance from the facility. Review of Systems General: No Chills; Fatigue, Malaise HEENT: No Head Aches; Visual Changes Pulmonary: Dyspnea; No Cough Cardiovascular: No: Chest Pain, Palpitations Gastrointestinal: No: Nausea, Abdominal Pain Neurological: Weakness; No: Confusion All Other Systems Reviewed All Other Systems Reviewed: Yes Objective Exam Vital Signs Vital Signs Date Time Temp Pulse Resp B/P (MAP) Pulse Ox O2 Delivery O2 Flow Rate FiO2 03/09/23 15:26 36.4 59 18 110/58 (75) 96 Room Air 03/09/23 12:00 36.4 60 16 122/62 (82) 95 Room Air 03/09/23 09:14 36.8 62 18 117/71 (86) 94 Room Air 03/09/23 09:00 Room Air 03/09/23 03:21 37.0 61 18 98/57 (71) 92 Room Air 03/08/23 23:32 37.0 65 18 102/53 (69) 92 Room Air 03/08/23 20:00 Room Air 03/08/23 19:46 37.0 65 18 137/76 (96) 96 Room Air I & O 03/09/23 07:00 Intake Total 1280 ml Balance 1280 ml General Appearance: WD/WN, Other (sleepy) HEENT: PERRL/EOMI Neck: Non Tender, Supple Respiratory: Lungs Clear Cardiovascular: Regular Rate, Rhythm Gastrointestinal: Normal Bowel Sounds, Non Tender, Soft Back: No CVA Tenderness Extremity: Non Tender, No Calf Tenderness, No Pedal Edema Neurologic/Psychiatric: Alert Skin: Warm/Dry Results Lab Laboratory Tests 03/09/23 05:06: Sodium Level 137, Potassium Level 4.1, Chloride Level 104, Carbon Dioxide Level 23, Anion Gap 10, Blood Urea Nitrogen 27H, Creatinine 1.28, Estimat Glomerular Filtration Rate 59, BUN/Creatinine Ratio 21, Glucose Level 126H, Calcium Level 9.0, Magnesium Level 2.1 Microbiology 02/24/23 MRSA Screen - Final, Complete MRSA not isolated 02/24/23 Urine Culture - Final, Complete NO GROWTH 02/24/23 Blood Culture - Final, Complete No growth Assessment/Plan Assessment/Plan Admission Dx Acute systolic congestion heart failure due to cardiomyopathy from alcoholism Alcoholism History of alcohol withdrawal seizures Elevated troponin Medication noncompliance Assessment and Plan Acute systolic congestion heart failure due to cardiomyopathy from alcoholism Alcoholism History of alcohol withdrawal seizures Elevated troponin Medication noncompliance Aggressive behavior with staff Hypotension Generalized weakness Acute systolic congestion heart failure due to cardiomyopathy from alcoholism - consult to Dr. Jang - see his note for full details - pt on amiodarone 400mg bid, [id number], entresto 24/26mg, lasix 20mg iv bid, carvedilol 3.125mg bid, EF of 15 - 20%, down significantly from 2019 echo report. - Jet will need close follow up as outpatient due to his heart failure. - his alcoholism is the primary cause of his cardiovascular compromise - pt has life vest - did not sleep with it on all night due to it not feeling good to his back at night. Alcoholism with History of alcohol withdrawal seizures - CIWA protocol -resolved - CIWA protocol completed Elevated troponin - defer to cardiology - may be due to NSTEMI versus heart failure causing elevated troponin Medication noncompliance - will need close, consistent follow up. Aggressive behavior with staff improved after coming down from alcohol intoxication -pt improving, sleepy now, not aggressive as previous when acutely withdrawing from alcohol. Generalized weakness - pt has gait instability due to his alcoholism and lack of activity at home Acute renal failure - improved after fluid supplementation Pt has been rejected by two nursing homes, likely to be three by the end of the day - discussed with Dr. Camarena to see if he would qualify for geriatric psychiatric admission - he does not. He may benefit from inpatient rehab on DC due to his weakness. started PT/OT - Last admission we had him set up for NH for SNF - but he left AMA. DVT prophylaxis with scd's and anticoag. GI Prophylaxis with ppi. PT at VERY high risk of in-hospital due to his hx of DT's and his acutely compromised cardiovascular status Admission Dx Acute systolic congestion heart failure due to cardiomyopathy from alcoholism Alcoholism History of alcohol withdrawal seizures Elevated troponin Medication noncompliance Clinical Quality Measures Admission Status Admission Dx Acute systolic congestion heart failure due to cardiomyopathy from alcoholism Alcoholism History of alcohol withdrawal seizures Elevated troponin Medication noncompliance KARLI ANTUNEZ MD March 09, 2023 18:31
[2023-03-09 19:03] VITALS: BP 124/58
[2023-03-09] MEDS: ENOXAPARIN 40 MG/0.4 ML (LOVENOX) SYR SQ SCH (20:46)
[2023-03-09 23:07] VITALS: BP 99/52
[2023-03-10] MEDS: ACETAMINOPHEN 325 MG TABLET PO PRN (00:40)
[2023-03-10 04:15] VITALS: BP 105/58
[2023-03-10 05:54] LABS: POTASSIUM 4.4 MMOL/L (3.6-5.0)
[2023-03-10 06:00] LABS: CREATININE SERUM 1.19 MG/DL (0.60-1.30)
[2023-03-10] MEDS: MAGNESIUM 1 GM/100 ML IVPB 100 ML IV SCH (06:06)
[2023-03-10] MEDS: KCL 20 MEQ TAB (K-DUR) PO SCH (06:06)
[2023-03-10] MEDS: POTASSIUM CL 10MEQ/50ML IVPB 50 ML IV SCH (06:06)
[2023-03-10] MEDS: MULTIVIT W/MINERALS TAB (THERAGRAN M) PO SCH (06:07)
[2023-03-10 07:14] VITALS: BP 122/72
--- NOTE | 2023-03-10 08:00 | Progress Note ---
Subjective Subjective Pt is a 72 y/o male who is hospitalized for Alcoholic Cardiomyopathy, Chronic alcoholism with withdrawal. [facility] have both rejected the patient for admission stating that "they would not be able to meet his needs". [facility] did not accept the pt due to lack of needs for geriatric psychiatric facility admission. We are currently waiting on [facility] pt for admission. Review of Systems General: No Chills; Fatigue, Malaise HEENT: No Head Aches; Visual Changes Pulmonary: Dyspnea; No Cough Cardiovascular: No: Chest Pain, Palpitations Gastrointestinal: No: Nausea, Abdominal Pain Neurological: Weakness; No: Confusion All Other Systems Reviewed All Other Systems Reviewed: Yes Objective Exam Vital Signs Vital Signs Date Time Temp Pulse Resp B/P (MAP) Pulse Ox O2 Delivery O2 Flow Rate FiO2 03/10/23 07:14 36.3 53 20 122/72 (89) 97 Room Air 03/10/23 04:15 36.8 72 18 105/58 (74) 97 Room Air 03/09/23 23:07 36.6 62 18 99/52 (68) 94 Room Air 03/09/23 20:00 Room Air 03/09/23 19:03 36.7 58 18 124/58 (80) 96 Room Air 03/09/23 15:26 36.4 59 18 110/58 (75) 96 Room Air 03/09/23 12:00 36.4 60 16 122/62 (82) 95 Room Air 03/09/23 09:14 36.8 62 18 117/71 (86) 94 Room Air 03/09/23 09:00 Room Air I & O 03/10/23 07:00 Intake Total 3120 ml Balance 3120 ml General Appearance: WD/WN, Other (sleepy) HEENT: PERRL/EOMI Neck: Non Tender, Supple Respiratory: Lungs Clear Cardiovascular: Regular Rate, Rhythm Gastrointestinal: Normal Bowel Sounds, Non Tender, Soft Back: No CVA Tenderness Extremity: Non Tender, No Calf Tenderness, No Pedal Edema Neurologic/Psychiatric: Alert Skin: Warm/Dry Results Lab Laboratory Tests 03/10/23 05:30: Sodium Level 136, Potassium Level 4.4, Chloride Level 103, Carbon Dioxide Level 23, Anion Gap 10, Blood Urea Nitrogen 29H, Creatinine 1.19, Estimat Glomerular Filtration Rate 65, BUN/Creatinine Ratio 24, Glucose Level 124H, Calcium Level 9.0, Magnesium Level 2.0 Microbiology 02/24/23 MRSA Screen - Final, Complete MRSA not isolated 02/24/23 Urine Culture - Final, Complete NO GROWTH 02/24/23 Blood Culture - Final, Complete No growth Assessment/Plan Assessment/Plan Admission Dx Acute systolic congestion heart failure due to cardiomyopathy from alcoholism Alcoholism History of alcohol withdrawal seizures Elevated troponin Medication noncompliance Assessment and Plan Acute systolic congestion heart failure due to cardiomyopathy from alcoholism Alcoholism History of alcohol withdrawal seizures Elevated troponin Medication noncompliance Aggressive behavior with staff Hypotension Generalized weakness Acute systolic congestion heart failure due to cardiomyopathy from alcoholism - consult to Dr. Jang - see his note for full details - pt on amiodarone 400mg bid, [id number], entresto 24/26mg, lasix 20mg iv bid, carvedilol 3.125mg bid, EF of 15 - 20%, down significantly from 2019 echo report. - Jet will need close follow up as outpatient due to his heart failure. - his alcoholism is the primary cause of his cardiovascular compromise - pt has life vest - did not sleep with it on all night due to it not feeling good to his back at night. Alcoholism with History of alcohol withdrawal seizures - CIWA protocol -resolved - CIWA protocol completed Elevated troponin - defer to cardiology - may be due to NSTEMI versus heart failure causing elevated troponin Medication noncompliance - will need close, consistent follow up. Aggressive behavior with staff improved after coming down from alcohol intoxication -pt improving, sleepy now, not aggressive as previous when acutely withdrawing from alcohol. Generalized weakness - pt has gait instability due to his alcoholism and lack of activity at home Acute renal failure - improved after fluid supplementation Pt has been rejected by two nursing homes, likely to be three by the end of the day - discussed with Dr. Camarena to see if he would qualify for geriatric psych iatric admission - he does not. He may benefit from inpatient rehab on DC due to his weakness. started PT/OT - Last admission we had him set up for NH for SNF - but he left AMA. DVT prophylaxis with scd's and anticoag. GI Prophylaxis with ppi. PT at VERY high risk of in-hospital due to his hx of DT's and his acutely compromised cardiovascular status Admission Dx Acute systolic congestion heart failure due to cardiomyopathy from alcoholism Alcoholism History of alcohol withdrawal seizures Elevated troponin Medication noncompliance Clinical Quality Measures Admission Status Admission Dx Acute systolic congestion heart failure due to cardiomyopathy from alcoholism Alcoholism History of alcohol withdrawal seizures Elevated troponin Medication noncompliance KARLI ANTUNEZ MD March 10, 2023 08:00
[2023-03-10] MEDS: HALOPERIDOL 0.5 MG (HALDOL) TAB PO SCH ×3 (09:21→20:03)
[2023-03-10] MEDS: ASPIRIN E.C. 81 MG (ECOTRIN) TAB PO SCH (09:21)
[2023-03-10] MEDS: SPIRONOLACTONE 25 MG (ALDACTONE) TAB PO SCH (09:21)
[2023-03-10] MEDS: EMPAGLIFLOZIN 10 MG TABLET (JARDIANCE) PO SCH (09:21)
[2023-03-10] MEDS: FOLIC ACID 1 MG TAB PO SCH (09:21)
[2023-03-10] MEDS: AMIODARONE 200 MG (CORDARONE) TAB PO SCH ×2 (09:21→20:03)
[2023-03-10] MEDS: FUROSEMIDE 40 MG (LASIX) TAB PO SCH (09:21)
[2023-03-10] MEDS: SACUBITRIL/VALSARTAN 24/26 MG (ENTRESTO) TABLET PO SCH ×2 (09:21→20:03)
[2023-03-10] MEDS: PANTOPRAZOLE 40 MG (PROTONIX) TAB PO SCH (09:21)
[2023-03-10] MEDS: POVIDONE (BETADINE) 10% SOLN 240 ML BTL TOP SCH ×2 (09:22→20:03)
[2023-03-10 11:27] VITALS: BP 122/79
--- NOTE | 2023-03-10 13:06 | Progress Note - Cardiology ---
Cardiology SOAP Progress Note Subjective: Gen weakness and malaise No cp or palp or syncope No shortness of breath at rest No n/v/d No focal weakness No swelling Objective: I&O/Vital Signs 03/10/23 03/10/23 03/10/23 03/10/23 04:15 07:14 08:00 11:27 Temp 36.8 36.3 36.0 Pulse 72 53 57 Resp 18 20 20 B/P (MAP) 105/58 (74) 122/72 (89) 122/79 (93) Pulse Ox 97 97 96 O2 Delivery Room Air Room Air Room Air Room Air 03/10/23 00:00 Intake Total 2050 ml Balance 2050 ml Weight (Pounds): 188 Weight (Ounces): 0.0 Weight (Calculated Kilograms): 85.008619 Constitutional: well-developed, well-nourished, other (appropriately responsive today, mildly confused) Respiratory: chest expansion is symmetric, chest is bilaterally symmetric, other Cardiovascular: regular rate-rhythm, S1 and S2, systolic murmur Gastrointestional: soft, audible bowel sounds Extremities: no lower extremity edema bilateral Neurologic/Psychiatric: other (moves all limbs) Skin: No rash on exposed areas, No ulcerations on exposed areas Results/Procedures: Labs Laboratory Tests 03/10/23 05:30: Sodium Level 136, Potassium Level 4.4, Chloride Level 103, Carbon Dioxide Level 23, Anion Gap 10, Blood Urea Nitrogen 29H, Creatinine 1.19, Estimat Glomerular Filtration Rate 65, BUN/Creatinine Ratio 24, Glucose Level 124H, Calcium Level 9.0, Magnesium Level 2.0 Microbiology 02/24/23 MRSA Screen - Final, Complete MRSA not isolated 02/24/23 Urine Culture - Final, Complete NO GROWTH 02/24/23 Blood Culture - Final, Complete No growth A/P: Assessment: Confusion - likely alcohol withdrawal - confusion varies significantly - management per Medical services Ac renal failure - likely volume depletion due to diuretics to treat heart failure - improving with reduction in diuretic regimen Acute systolic CHF - Echocardiiogram of 12-30-[address] Griffin showed LVEF 55-65%; concentric hypertrophy; grade 1 diastolic dysfunction. Mild to mod AoR. PASP 40 mmHg Frequent ventricular ectopy - no further episodes on tele Severe cadiomyopathy - Echo of 4-27-23: The cavity size is normal. Wall thickness is normal. Systolic function is severely reduced. The estimated ejection fraction is 15-20%. Severe diffuse hypokinesis. Features are consistent with a pseudonormal left ventricular filling pattern, with concomitant abnormal relaxation and increased filling pressure (grade 2 diastolic dysfunction). Aortic valve: There is trivial regurgitation. Pulmonary arteries: Systolic pressure is in the range of 30 mm Hg to 35 mm Hg. Elevated troponin - NSTEMI vs Type 2 ID secondary to acute CHF/severe CM H/O abnormal MPI - MPI of [address] Griffin: Pharmacological stress test was negative for ischemia. Normal LV function with no wall motion abnormalities. Possible ischemia in the apex. Elevated TID. Coronary angiography was recommended (pt refused at that time per Dr. Griffin's note) Heavy ETOH abuse - 3 pints Vodka/day HTN Non-compliant with medications/recs/follow up Plan: * Complex management * Intermittent confusion - management per Medical services * HF treatment as tolerated by bp and renal function * Renal function stable following reduction in diuretic regimen * Management of alcohol withdrawal by the [facility] * Continue oral amiodarone which has resulted in control of vent arrhythmia. * PT/OT * Monitor labs * We again discussed his CV issues and our treatment plan with him and his sister, and answered questions * We advised compliance with meds and Life Vest if he wishes to have everything done in efforts to extend his life span and improve the quality of his life ALEX CARROLL [facility] March 10, 2023 13:06
[2023-03-10 15:10] VITALS: BP 110/63
[2023-03-10 19:02] VITALS: BP 100/61
[2023-03-10] MEDS: ENOXAPARIN 40 MG/0.4 ML (LOVENOX) SYR SQ SCH (20:03)
[2023-03-10 23:19] VITALS: BP 132/62
[2023-03-11 03:00] VITALS: BP 119/68
[2023-03-11 05:58] LABS: POTASSIUM 3.8 MMOL/L (3.6-5.0)
[2023-03-11 06:00] LABS: CALCIUM 8.7 MG/DL (8.5-10.1)
[2023-03-11 06:04] LABS: CREATININE SERUM 1.13 MG/DL (0.60-1.30)
[2023-03-11 06:07] LABS: MAGNESIUM 2.2 MG/DL (1.6-2.4)
[2023-03-11] MEDS: MAGNESIUM 1 GM/100 ML IVPB 100 ML IV SCH (06:08)
[2023-03-11] MEDS: KCL 20 MEQ TAB (K-DUR) PO SCH (06:08)
[2023-03-11] MEDS: POTASSIUM CL 10MEQ/50ML IVPB 50 ML IV SCH (06:08)
[2023-03-11] MEDS: MULTIVIT W/MINERALS TAB (THERAGRAN M) PO SCH (06:18)
[2023-03-11 07:53] VITALS: BP 142/85
[2023-03-11] MEDS ORDERED: KCL 20 MEQ TAB (K-DUR) PO ONE (08:00)
--- NOTE | 2023-03-11 08:07 | Progress Note ---
Subjective Subjective Pt is a 72 y/o male who is hospitalized for Alcoholic Cardiomyopathy, Chronic alcoholism with withdrawal. Review of Systems General: No Chills; Fatigue, Malaise HEENT: No Head Aches; Visual Changes Pulmonary: Dyspnea; No Cough Cardiovascular: No: Chest Pain, Palpitations Gastrointestinal: No: Nausea, Abdominal Pain Neurological: Weakness; No: Confusion All Other Systems Reviewed All Other Systems Reviewed: Yes Objective Exam Vital Signs Vital Signs Date Time Temp Pulse Resp B/P (MAP) Pulse Ox O2 Delivery O2 Flow Rate FiO2 03/11/23 07:53 36.5 57 16 142/85 (104) 96 Room Air 03/11/23 03:00 36.6 60 18 119/68 (85) 95 Room Air 03/10/23 23:19 36.6 57 18 132/62 (85) 96 Room Air 03/10/23 20:00 Room Air 03/10/23 19:02 36.5 60 19 100/61 (74) 96 Room Air 03/10/23 15:10 36.4 60 18 110/63 (79) 93 Room Air 03/10/23 11:27 36.0 57 20 122/79 (93) 96 Room Air I & O 03/11/23 07:00 Intake Total 2695 ml Balance 2695 ml General Appearance: WD/WN, Other (sleepy) HEENT: PERRL/EOMI Neck: Non Tender, Supple Respiratory: Lungs Clear Cardiovascular: Regular Rate, Rhythm Gastrointestinal: Normal Bowel Sounds, Non Tender, Soft Back: No CVA Tenderness Extremity: Non Tender, No Calf Tenderness, No Pedal Edema Neurologic/Psychiatric: Alert Skin: Warm/Dry Results Lab Laboratory Tests 03/11/23 05:30: Sodium Level 137, Potassium Level 3.8, Chloride Level 105, Carbon Dioxide Level 21, Anion Gap 11, Blood Urea Nitrogen 26H, Creatinine 1.13, Estimat Glomerular Filtration Rate 69, BUN/Creatinine Ratio 23, Glucose Level 107H, Calcium Level 8.7, Magnesium Level 2.2 Microbiology 02/24/23 MRSA Screen - Final, Complete MRSA not isolated 02/24/23 Urine Culture - Final, Complete NO GROWTH 02/24/23 Blood Culture - Final, Complete No growth Assessment/Plan Assessment/Plan Admission Dx Acute systolic congestion heart failure due to cardiomyopathy from alcoholism Alcoholism History of alcohol withdrawal seizures Elevated troponin Medication noncompliance Assessment and Plan Acute systolic congestion heart failure due to cardiomyopathy from alcoholism Alcoholism History of alcohol withdrawal seizures Elevated troponin Medication noncompliance Aggressive behavior with staff Hypotension Generalized weakness Acute systolic congestion heart failure due to cardiomyopathy from alcoholism - consult to Dr. Jang - see his note for full details - pt on amiodarone 400mg bid, [id number], entresto 24/26mg, lasix 20mg iv bid, carvedilol 3.125mg bid, EF of 15 - 20%, down significantly from 2019 echo report. - Jet will need close follow up as outpatient due to his heart failure. - his alcoholism is the primary cause of his cardiovascular compromise - pt has life vest - did not sleep with it on all night due to it not feeling good to his back at night. Alcoholism with History of alcohol withdrawal seizures - CIWA protocol -resolved - CIWA protocol completed Elevated troponin - defer to cardiology - may be due to NSTEMI versus heart failure causing elevated troponin Medication noncompliance - will need close, consistent follow up. Aggressive behavior with staff improved after coming down from alcohol intoxication -pt improving, sleepy now, not aggressive as previous when acutely withdrawing from alcohol. Generalized weakness - pt has gait instability due to his alcoholism and lack of activity at home Acute renal failure - improved after fluid supplementation Pt has been rejected by two nursing homes, likely to be three by the end of the day - discussed with Dr. Camarena to see if he would qualify for geriatric psychiatric admission - he does not. He may benefit from inpatient rehab on DC due to his weakness. started PT/OT - Last admission we had him set up for NH for SNF - but he left AMA. DVT prophylaxis with scd's and anticoag. GI Prophylaxis with ppi. PT at VERY high risk of in-hospital due to his hx of DT's and his acutely compromised cardiovascular status Admission Dx Acute systolic congestion heart failure due to cardiomyopathy from alcoholism Alcoholism History of alcohol withdrawal seizures Elevated troponin Medication noncompliance Clinical Quality Measures Admission Status Admission Dx Acute systolic congestion heart failure due to cardiomyopathy from alcoholism Alcoholism History of alcohol withdrawal seizures Elevated troponin Medication noncompliance KARLI ANTUNEZ MD March 11, 2023 08:07
[2023-03-11] MEDS: SACUBITRIL/VALSARTAN 24/26 MG (ENTRESTO) TABLET PO SCH ×2 (08:54→21:02)
[2023-03-11] MEDS: FOLIC ACID 1 MG TAB PO SCH (08:54)
[2023-03-11] MEDS: EMPAGLIFLOZIN 10 MG TABLET (JARDIANCE) PO SCH (08:54)
[2023-03-11] MEDS: ASPIRIN E.C. 81 MG (ECOTRIN) TAB PO SCH (08:54)
[2023-03-11] MEDS: FUROSEMIDE 40 MG (LASIX) TAB PO SCH (08:54)
[2023-03-11] MEDS: AMIODARONE 200 MG (CORDARONE) TAB PO SCH ×2 (08:55→21:02)
[2023-03-11] MEDS: SPIRONOLACTONE 25 MG (ALDACTONE) TAB PO SCH (08:55)
[2023-03-11] MEDS: PANTOPRAZOLE 40 MG (PROTONIX) TAB PO SCH (08:55)
[2023-03-11] MEDS: HALOPERIDOL 0.5 MG (HALDOL) TAB PO SCH ×3 (08:55→21:02)
[2023-03-11] MEDS: POVIDONE (BETADINE) 10% SOLN 240 ML BTL TOP SCH ×2 (08:57→21:02)
--- NOTE | 2023-03-11 10:07 | Progress Note - Cardiology ---
Cardiology SOAP Progress Note Subjective: Up ambulating in the room States he feels well Very pleasant and co-operative this morning Wearing Life vest and states he will comply No c/o CP, SOB, palpitations Objective: I&O/Vital Signs 03/11/23 03/12/23 23:07 07:17 Temp 36.6 36.2 Pulse 64 50 Resp 18 18 B/P (MAP) 124/58 (80) 131/61 (84) Pulse Ox 96 97 O2 Delivery Room Air Room Air 03/12/23 00:00 Intake Total 2260 ml Balance 2260 ml Weight (Pounds): 188 Weight (Ounces): 0.0 Weight (Calculated Kilograms): 85.338490 Constitutional: well-developed, well-nourished, other (appropriate and cooperative today) Respiratory: chest expansion is symmetric, chest is bilaterally symmetric, other Cardiovascular: regular rate-rhythm, S1 and S2, systolic murmur Gastrointestional: soft, audible bowel sounds Extremities: no lower extremity edema bilateral Neurologic/Psychiatric: other (moves all limbs) Skin: No rash on exposed areas, No ulcerations on exposed areas Results/Procedures: Labs Microbiology 02/24/23 MRSA Screen - Final, Complete MRSA not isolated 02/24/23 Urine Culture - Final, Complete NO GROWTH 02/24/23 Blood Culture - Final, Complete No growth A/P: Assessment: Confusion - likely alcohol withdrawal - confusion varies significantly - management per Medical services Ac renal failure - likely volume depletion due to diuretics to treat heart failure - improving with reduction in diuretic regimen Acute systolic CHF - Echocardiiogram of 12-30-[address] Griffin showed LVEF 55-65%; concentric hypertrophy; grade 1 diastolic dysfunction. Mild to mod AoR. PASP 40 mmHg Frequent ventricular ectopy - no further episodes on tele Severe cadiomyopathy - Echo of 02-25-23: The cavity size is normal. Wall thickness is normal. Systolic function is severely reduced. The estimated ejection fraction is 15-20%. Severe diffuse hypokinesis. Features are consistent with a pseudonormal left ventricular filling pattern, with concomitant abnormal relaxation and increased filling pressure (grade 2 diastolic dysfunction). Aortic valve: There is trivial regurgitation. Pulmonary arteries: Systolic pressure is in the range of 30 mm Hg to 35 mm Hg. Elevated troponin - NSTEMI vs Type 2 CT secondary to acute CHF/severe CM H/O abnormal MPI - MPI of 3-7-[address] Griffin: Pharmacological stress test was negative for ischemia. Normal LV function with no wall motion abnormalities. Possible ischemia in the apex. Elevated TID. Coronary angiography was recommended (pt refused at that time per Dr. Griffin's note) Heavy ETOH abuse - 3 pints Vodka/day HTN Non-compliant with medications/recs/follow up Plan: * Complex management * Intermittent confusion - management per Medical services * HF treatment as tolerated by bp and renal function * Renal function stable following reduction in diuretic regimen * Management of alcohol withdrawal by the [facility] * Continue oral amiodarone which has resulted in control of vent arrhythmia. * PT/OT * Monitor labs * We advised compliance with meds and Life Vest if he wishes to have everything done in efforts to extend his life span and improve the quality of his life EVAN LOCKETT March 11, 2023 10:07
[2023-03-11 12:59] VITALS: BP 123/75
[2023-03-11 15:50] VITALS: BP 108/55
--- NOTE | 2023-03-11 17:15 | Progress Note - Cardiology ---
Cardiology SOAP Progress Note Subjective: No cp or palp or syncope or shortness of breath at rest Gen malaise No focal weakness No n/v/d Objective: I&O/Vital Signs 03/11/23 03/11/23 03/11/23 03/11/23 07:53 08:00 12:59 15:50 Temp 36.5 36.4 36.8 Pulse 57 51 53 Resp 16 20 18 B/P (MAP) 142/85 (104) 123/75 (91) 108/55 (72) Pulse Ox 96 96 96 O2 Delivery Room Air Room Air Room Air Room Air 03/11/23 00:00 Intake Total 2120 ml Balance 2120 ml Weight (Pounds): 188 Weight (Ounces): 0.0 Weight (Calculated Kilograms): 85.853389 Constitutional: well-developed, well-nourished, other (appropriate and cooperative today) Respiratory: chest expansion is symmetric, chest is bilaterally symmetric, other Cardiovascular: regular rate-rhythm, S1 and S2, systolic murmur Gastrointestional: soft, audible bowel sounds Extremities: no lower extremity edema bilateral Neurologic/Psychiatric: other (moves all limbs) Skin: No rash on exposed areas, No ulcerations on exposed areas Results/Procedures: Labs Laboratory Tests 03/11/23 05:30: Sodium Level 137, Potassium Level 3.8, Chloride Level 105, Carbon Dioxide Level 21, Anion Gap 11, Blood Urea Nitrogen 26H, Creatinine 1.13, Estimat Glomerular Filtration Rate 69, BUN/Creatinine Ratio 23, Glucose Level 107H, Calcium Level 8.7, Magnesium Level 2.2 Microbiology 02/24/23 MRSA Screen - Final, Complete MRSA not isolated 02/24/23 Urine Culture - Final, Complete NO GROWTH 02/24/23 Blood Culture - Final, Complete No growth Laboratory Tests 03/10/23 05:30 03/11/23 05:30 A/P: Assessment: Confusion - likely alcohol withdrawal - confusion varies significantly - management per Medical services Ac renal failure - likely volume depletion due to diuretics to treat heart failure - improving with reduction in diuretic regimen Acute systolic CHF - Echocardiiogram of 12-30-[address] Griffin showed LVEF 55-65%; concentric hypertrophy; grade 1 diastolic dysfunction. Mild to mod AoR. PASP 40 mmHg Frequent ventricular ectopy - no further episodes on tele Severe cadiomyopathy - Echo of 02-25-23: The cavity size is normal. Wall thickness is normal. Systolic function is severely reduced. The estimated ejection fraction is 15-20%. Severe diffuse hypokinesis. Features are consistent with a pseudonormal left ventricular filling pattern, with concomitant abnormal relaxation and increased filling pressure (grade 2 diastolic dysfunction). Aortic valve: There is trivial regurgitation. Pulmonary arteries: Systolic pressure is in the range of 30 mm Hg to 35 mm Hg. Elevated troponin - NSTEMI vs Type 2 HI secondary to acute CHF/severe CM H/O abnormal MPI - MPI of 01-05-[address] Griffin: Pharmacological stress test was negative for ischemia. Normal LV function with no wall motion abnormalities. Possible ischemia in the apex. Elevated TID. Coronary angiography was recommended (pt refused at that time per Dr. Griffin's note) Heavy ETOH abuse - 3 pints Vodka/day HTN Non-compliant with medications/recs/follow up Plan: * Complex management * Intermittent confusion - management per Medical services * HF treatment as tolerated by bp and renal function * Renal function improved following reduction in diuretic regimen * [facility] * Continue oral amiodarone which has resulted in control of vent arrhythmia. * PT/OT * Monitor labs * We advised compliance with meds and Life Vest ALEX CARROLL MD FACP FAC CCDS March 11, 2023 17:15
[2023-03-11] MEDS: ENOXAPARIN 40 MG/0.4 ML (LOVENOX) SYR SQ SCH (21:02)
[2023-03-11 23:07] VITALS: BP 124/58
[2023-03-12] MEDS: MAGNESIUM 1 GM/100 ML IVPB 100 ML IV SCH (06:04)
[2023-03-12] MEDS: POTASSIUM CL 10MEQ/50ML IVPB 50 ML IV SCH (06:04)
[2023-03-12] MEDS: KCL 20 MEQ TAB (K-DUR) PO SCH (06:05)
[2023-03-12 07:17] VITALS: BP 131/61
[2023-03-12] MEDS: MULTIVIT W/MINERALS TAB (THERAGRAN M) PO SCH (08:45)
[2023-03-12] MEDS: SACUBITRIL/VALSARTAN 24/26 MG (ENTRESTO) TABLET PO SCH (08:45)
[2023-03-12] MEDS: EMPAGLIFLOZIN 10 MG TABLET (JARDIANCE) PO SCH (08:45)
[2023-03-12] MEDS: HALOPERIDOL 0.5 MG (HALDOL) TAB PO SCH ×2 (08:45→13:04)
[2023-03-12] MEDS: PANTOPRAZOLE 40 MG (PROTONIX) TAB PO SCH (08:45)
[2023-03-12] MEDS: FUROSEMIDE 40 MG (LASIX) TAB PO SCH (08:45)
[2023-03-12] MEDS: SPIRONOLACTONE 25 MG (ALDACTONE) TAB PO SCH (08:45)
[2023-03-12] MEDS: ASPIRIN E.C. 81 MG (ECOTRIN) TAB PO SCH (08:45)
[2023-03-12] MEDS: AMIODARONE 200 MG (CORDARONE) TAB PO SCH (08:45)
[2023-03-12] MEDS: FOLIC ACID 1 MG TAB PO SCH (08:46)
[2023-03-12] MEDS: POVIDONE (BETADINE) 10% SOLN 240 ML BTL TOP SCH (08:46)
--- NOTE | 2023-03-12 08:51 | Progress Note - Cardiology ---
Cardiology SOAP Progress Note Subjective: No cp or palp or syncope No n/v/d No focal weakness No shortness of breath at rest Gen weakness and malaise present Objective: I&O/Vital Signs 03/11/23 03/12/23 23:07 07:17 Temp 36.6 36.2 Pulse 64 50 Resp 18 18 B/P (MAP) 124/58 (80) 131/61 (84) Pulse Ox 96 97 O2 Delivery Room Air Room Air 03/12/23 00:00 Intake Total 2260 ml Balance 2260 ml Weight (Pounds): 188 Weight (Ounces): 0.0 Weight (Calculated Kilograms): 85.201677 Constitutional: well-developed, well-nourished, other (appropriate and cooperative today) Respiratory: chest expansion is symmetric, chest is bilaterally symmetric, other Cardiovascular: regular rate-rhythm, S1 and S2, systolic murmur Gastrointestional: soft, audible bowel sounds Extremities: no lower extremity edema bilateral Neurologic/Psychiatric: other (moves all limbs) Skin: No rash on exposed areas, No ulcerations on exposed areas Results/Procedures: Labs Microbiology 02/24/23 MRSA Screen - Final, Complete MRSA not isolated 02/24/23 Urine Culture - Final, Complete NO GROWTH 02/24/23 Blood Culture - Final, Complete No growth Laboratory Tests 03/11/23 05:30 A/P: Assessment: Confusion - likely alcohol withdrawal - confusion varies significantly - management per Medical services Ac renal failure - likely volume depletion due to diuretics to treat heart failure - improving with reduction in diuretic regimen Acute systolic CHF - Echocardiiogram of 12-30-[address] Griffin showed LVEF 55-65%; concentric hypertrophy; grade 1 diastolic dysfunction. Mild to mod AoR. PASP 40 mmHg Frequent ventricular ectopy - no further episodes on tele Severe cadiomyopathy - Echo of 02-25-23: The cavity size is normal. Wall thickness is normal. Systolic function is severely reduced. The estimated ejection fraction is 15-20%. Severe diffuse hypokinesis. Features are consistent with a pseudonormal left ventricular filling pattern, with concomitant abnormal relaxation and increased filling pressure (grade 2 diastolic dysfunction). Aortic valve: There is trivial regurgitation. Pulmonary arteries: Systolic pressure is in the range of 30 mm Hg to 35 mm Hg. Elevated troponin - NSTEMI vs Type 2 DC secondary to acute CHF/severe CM H/O abnormal MPI - MPI of 3--[address] Griffin: Pharmacological stress test was negative for ischemia. Normal LV function with no wall motion abnormalities. Possible ischemia in the apex. Elevated TID. Coronary angiography was recommended (pt refused at that time per Dr. Griffin's note) Heavy ETOH abuse - 3 pints Vodka/day HTN Non-compliant with medications/recs/follow up Plan: * Complex management * Intermittent confusion - management per Medical services * HF treatment as tolerated by bp and renal function * Renal function improved following reduction in diuretic regimen * Management of alcohol withdrawal by the [facility] * Continue oral amiodarone which has resulted in control of vent arrhythmia. * PT/OT * Monitor labs * We advised compliance with meds and Life Vest * He is planning a stay at [facility] for drug and alcohol rehab * Oupt cardiac f/u advised ALEX CARROLL MD FACP FAC CCDS March 12, 2023 08:51
--- NOTE | 2023-03-12 13:07 | Discharge Summary ---
Diagnosis/Chief Complaint Date of Admission Feb 24, 2023 at 21:27 Date of Discharge Reason Hospital Visit Pt is a 72 y/o male who is known to me from clinic and previous hospitaliz ations. He has known alcoholism with pt unable to sustain cessation of intake. He reportedly had been drinking heavily for the past few months, and called the office last week, was advised to go to the ER to seek help since he was complaining of "having trouble focusing" his eyes. He did not follow instructions, and continued to drink at home to the point that he was persistently drunk. 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 he was admitted to the ICU for CHF, and alcohol detox with hx of DTs. Jet is unable to hold a coherent conversation today in the ICU. Discharge Summary Discharge Physical Examination Allergies: Coded Allergies: No Known Drug Allergies (Unverified , 11/23/14) Vitals & I&Os Vital Signs Date Time Temp Pulse Resp B/P (MAP) Pulse Ox O2 Delivery O2 Flow Rate FiO2 03/12/23 08:00 Room Air 03/12/23 07:17 36.2 50 18 131/61 (84) 97 Discharge Instructions to patient/family Please see electronic discharge instructions given to patient. Discharge Medications Reviewed and agree with Discharge Medication list on patient's Discharge Instruction sheet KARLI ANTUNEZ MD March 12, 2023 13:07
[2023-03-12] MEDS ORDERED: FURO40TA4 PO (13:14)
[2023-03-12] MEDS ORDERED: CARV3.122 PO (13:14)
[2023-03-12] MEDS ORDERED: EMPA10TA PO (13:14)
[2023-03-12] MEDS ORDERED: HALO0.5T PO (13:14)
[2023-03-12] MEDS ORDERED: SACU1TAB2 PO (13:14)
[2023-03-12] MEDS ORDERED: FOLI1TAB33 PO (13:14)
[2023-03-12] MEDS ORDERED: NITR0.4T42 SL (13:14)
[2023-03-12] MEDS ORDERED: ASPI-1238 PO (13:14)
[2023-03-12] MEDS ORDERED: SPIR25TA5 PO (13:14)
[2023-03-12] MEDS ORDERED: AMIO200T65 PO (13:14)
--- NOTE | 2023-03-12 13:16 | Discharge Inst-Simple/Standard ---
Discharge Inst-Standard Reconcile Patient Problems Problems Reviewed?: Yes Discharge Medications New, Converted or Re-Newed RX: Transmitted to Pharmacy Patient Instructions/Follow Up Plan of Care/Instructions/FU: if possible - admission to alcohol and drug rehabilitation facility - [place], if not able to go to the facility - will be discharged in the care of his sister with outpatient follow up pending Activity as Tolerated: Yes Discharge Diet: Low Sodium Diet (NO ALCOHOL) Health Concerns: Acute systolic congestion heart failure due to cardiomyopathy from alcoholism Alcoholism History of alcohol withdrawal seizures Generalized weakness Return to The Hospital For: any concern for worsening cardiac symptoms, or alcohol intoxication or other lifethreatening illness or injury KARLI ANTUNEZ MD March 12, 2023 13:16
[2023-03-12 15:17] VITALS: BP 131/61
== END 2023-03-12 15:19 | disposition home or self-care (01) | DRG 896 ==
LOC: EDUNIT# 19:07 → ER 19:09 → ICU 21:27 → 4TH 03-02 10:25
PROVIDERS: ADMIT Family Medicine; ATTEND Family Medicine
DX: F10.231 Alcohol dependence with withdrawal delirium (principal); I21.A1 Myocardial infarction type 2; I50.23 Acute on chronic systolic (congestive) heart failure; N17.9 Acute kidney failure, unspecified; L97.429 Non-pressure chronic ulcer of left heel and midfoot with unspecified severity; L97.419 Non-pressure chronic ulcer of right heel and midfoot with unspecified severity; I42.6 Alcoholic cardiomyopathy; I11.0 Hypertensive heart disease with heart failure; F10.221 Alcohol dependence with intoxication delirium; F10.27 Alcohol dependence with alcohol-induced persisting dementia; Y90.4 Blood alcohol level of 80-99 mg/100 ml; G40.909 Epilepsy, unspecified, not intractable, without status epilepticus; N40.0 Benign prostatic hyperplasia without lower urinary tract symptoms; I35.1 Nonrheumatic aortic (valve) insufficiency; E78.00 Pure hypercholesterolemia, unspecified; Z66 Do not resuscitate; F41.9 Anxiety disorder, unspecified; I70.244 Atherosclerosis of native arteries of left leg with ulceration of heel and midfoot; I70.234 Atherosclerosis of native arteries of right leg with ulceration of heel and midfoot; I95.9 Hypotension, unspecified; Z91.199 Patient's noncompliance with other medical treatment and regimen due to unspecified reason; Z20.822 Contact with and (suspected) exposure to COVID-19
CPT/HCPCS: 36415; 71045; 80048; 80053; 80306; 80320; 81000; 82150; 82550; 82553; 82947; 83605; 83690; 83735; 83874; 83880; 84100; 84484; 85025; 85379; 85610; 85652; 85730; 86141; 87040; 87081; 87088; 87636; 93005; 93041; 93306; 94760; 96361; 96372; 96374

== ENCOUNTER 2023-07-21 09:16 | Emergency (ER) | payer MEDICARE, OTHER ==
[~2023-07-21] VITALS: Ht 182.8 cm; Wt 85.2 kg
[~2023-07-21 09:16] MED LIST changes: +AMIO200T65 PO; +ASPI-1238 PO; +CARV3.122 PO; +EMPA10TA PO; +FURO40TA4 PO; +HALO0.5T PO; +NITR0.4T42 SL; +SACU1TAB2 PO; +SPIR25TA5 PO
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
[2023-07-21 10:03] LABS: BASOPHILS % (AUTO) 0 % (0-10); EOSINOPHILS # (AUTO) 0.1 10^3/uL (0.0-0.3); MEAN CORPUSCULAR HGB CONC 35 g/dL (32-36); MEAN CORPUSCULAR VOLUME 94 fL (80-99)
[2023-07-21 10:05] LABS: EOSINOPHILS % (AUTO) 1 % (0-10); HEMATOCRIT 45 % (40-54); HEMOGLOBIN 15.9 g/dL (13.3-17.7); LYMPHOCYTES # (AUTO) 1.3 10^3/uL (1.0-4.0); LYMPHOCYTES % (AUTO) 26 % (12-44); MEAN CORPUSCULAR HEMOGLOBIN 33 pg (25-34); MEAN PLATELET VOLUME 9.9 fL (9.0-12.2); MONOCYTES # (AUTO) 0.6 10^3/uL (0.0-1.0); MONOCYTES % (AUTO) 11 % (0-12); NEUTROPHILS # (AUTO) 3.1 10^3/uL (1.8-7.8); NEUTROPHILS % (AUTO) 61 % (42-75); PLATELET COUNT 134 10^3/uL (130-400); WHITE BLOOD COUNT 5.1 10^3/uL (4.3-11.0)
[2023-07-21 10:23] LABS: INR 0.9 (0.8-1.4); PROTHROMBIN TIME PATIENT 12.8 SEC (12.2-14.7)
[2023-07-21 10:25] LABS: ALBUMIN 4.2 GM/DL (3.2-4.5); POTASSIUM 3.2 MMOL/L (3.6-5.0)
[2023-07-21 10:26] LABS: CALCIUM 8.9 MG/DL (8.5-10.1)
[2023-07-21 10:27] LABS: TOTAL PROTEIN 7.2 GM/DL (6.4-8.2)
[2023-07-21 10:29] LABS: BILIRUBIN,TOTAL 0.5 MG/DL (0.1-1.0)
[2023-07-21 10:31] LABS: CREATININE SERUM 1.12 MG/DL (0.60-1.30)
[2023-07-21 10:34] LABS: MAGNESIUM 1.8 MG/DL (1.6-2.4)
--- NOTE | 2023-07-21 10:44 | Diagnostic Imaging Report ---
INDICATION: Chest pain. Time of Exam: 10:43 AM Correlation is made with prior chest from 02/25/2023. Heart is enlarged. Lungs are clear. No infiltrates are detected. There is no effusion or pneumothorax identified. IMPRESSION: No acute cardiopulmonary process is detected. Dictated by: Dictated on workstation # [id number]
[2023-07-21] MEDS ORDERED: POTASSIUM CHLORIDE 10 MEQ TABLET PO ONE (11:30)
[2023-07-21] MEDS ORDERED: LACTATED RINGERS 1,000 ML 1,000 ML IV ONE (11:30)
[2023-07-21 13:45] VITALS: BP 155/84
== END 2023-07-21 13:47 | disposition home or self-care (01) ==
LOC: EDUNIT# 09:16 → ER 09:18
DX: R19.7 Diarrhea, unspecified (principal); R11.2 Nausea with vomiting, unspecified; I11.0 Hypertensive heart disease with heart failure; I50.9 Heart failure, unspecified; E87.6 Hypokalemia; F10.10 Alcohol abuse, uncomplicated; Z20.822 Contact with and (suspected) exposure to COVID-19; Y90.0 Blood alcohol level of less than 20 mg/100 ml
CPT/HCPCS: 71045; 80053; 83735; 83874; 84484; 85025; 85610; 85730; 87636; 93005; 93041; 99284; G0480; 36415; 80320

== ENCOUNTER 2023-08-04 09:22 | Emergency (ER) | payer MEDICARE, OTHER ==
[~2023-08-04] VITALS: Ht 172 cm; Wt 76.0 kg
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
[2023-08-04] MEDS ORDERED: NS IV 1000 ML 1,000 ML IV STA (10:35)
[2023-08-04 10:59] LABS: BASOPHILS # (AUTO) 0.1 10^3/uL (0.0-0.1); BASOPHILS % (AUTO) 1 % (0-10); EOSINOPHILS # (AUTO) 0.1 10^3/uL (0.0-0.3); EOSINOPHILS % (AUTO) 1 % (0-10); HEMATOCRIT 44 % (40-54); HEMOGLOBIN 15.2 g/dL (13.3-17.7); LYMPHOCYTES # (AUTO) 1.4 10^3/uL (1.0-4.0); LYMPHOCYTES % (AUTO) 22 % (12-44); MEAN CORPUSCULAR HEMOGLOBIN 33 pg (25-34); MEAN CORPUSCULAR HGB CONC 34 g/dL (32-36); MEAN CORPUSCULAR VOLUME 96 fL (80-99); MEAN PLATELET VOLUME 10.2 fL (9.0-12.2); MONOCYTES # (AUTO) 0.6 10^3/uL (0.0-1.0); MONOCYTES % (AUTO) 9 % (0-12); NEUTROPHILS # (AUTO) 4.3 10^3/uL (1.8-7.8); NEUTROPHILS % (AUTO) 67 % (42-75); PLATELET COUNT 143 10^3/uL (130-400); WHITE BLOOD COUNT 6.4 10^3/uL (4.3-11.0)
[2023-08-04 11:07] LABS: ALBUMIN 3.9 GM/DL (3.2-4.5); CHLORIDE 105 MMOL/L (98-107); POTASSIUM 4.4 MMOL/L (3.6-5.0); SODIUM 138 MMOL/L (135-145)
[2023-08-04 11:08] LABS: CALCIUM 8.4 MG/DL (8.5-10.1)
[2023-08-04 11:10] LABS: GLUCOSE 115 MG/DL (70-105); TOTAL PROTEIN 6.8 GM/DL (6.4-8.2)
[2023-08-04 11:11] LABS: CARBON DIOXIDE 21 MMOL/L (21-32)
[2023-08-04 11:12] LABS: BILIRUBIN,TOTAL 0.7 MG/DL (0.1-1.0)
[2023-08-04 11:13] LABS: ALKALINE PHOSPHATASE 61 U/L (40-136); CREATININE SERUM 0.81 MG/DL (0.60-1.30); GFR ESTIMATED 93
[2023-08-04 11:14] LABS: BUN/CREATININE RATIO 14
[2023-08-04 11:16] LABS: ALANINE AMINOTRANSFERASE 18 U/L (0-55)
[2023-08-04 11:17] LABS: LIPASE 26 U/L (8-78)
[2023-08-04 11:55] VITALS: BP 170/82
== END 2023-08-04 11:54 | disposition home or self-care (01) ==
LOC: EDUNIT# 09:22 → ER 09:23
DX: R19.7 Diarrhea, unspecified (principal)
CPT/HCPCS: 80053; 82274; 83690; 85025; 87015; 87045; 87046; 87324; 87328; 87329; 87449; 87899; 99283; G0480; 36415; 80320

== ENCOUNTER 2023-08-18 08:48 | Emergency (ER) | payer MEDICARE, OTHER ==
[~2023-08-18] VITALS: Ht 182.8 cm; Wt 76.0 kg
[2023-08-18 09:29] LABS: HEMOGLOBIN 15.4 g/dL (13.3-17.7)
[2023-08-18] MEDS ORDERED: LACTATED RINGERS 1,000 ML 1,000 ML IV SCH (09:30)
[2023-08-18 09:31] LABS: BASOPHILS % (AUTO) 0 % (0-10); EOSINOPHILS # (AUTO) 0.1 10^3/uL (0.0-0.3); EOSINOPHILS % (AUTO) 1 % (0-10); HEMATOCRIT 44 % (40-54); LYMPHOCYTES # (AUTO) 1.1 10^3/uL (1.0-4.0); LYMPHOCYTES % (AUTO) 21 % (12-44); MEAN CORPUSCULAR HEMOGLOBIN 33 pg (25-34); MEAN CORPUSCULAR HGB CONC 35 g/dL (32-36); MEAN CORPUSCULAR VOLUME 94 fL (80-99); MEAN PLATELET VOLUME 10.2 fL (9.0-12.2); MONOCYTES # (AUTO) 0.5 10^3/uL (0.0-1.0); MONOCYTES % (AUTO) 10 % (0-12); NEUTROPHILS # (AUTO) 3.4 10^3/uL (1.8-7.8); NEUTROPHILS % (AUTO) 67 % (42-75); PLATELET COUNT 108 10^3/uL (130-400)
[2023-08-18 09:37] LABS: SMEAR SCAN COMMENT YES
[2023-08-18 09:39] LABS: POTASSIUM 4.1 MMOL/L (3.6-5.0)
[2023-08-18 09:40] LABS: CALCIUM 8.7 MG/DL (8.5-10.1)
[2023-08-18 09:43] LABS: BILIRUBIN,TOTAL 0.8 MG/DL (0.1-1.0)
[2023-08-18 09:45] LABS: CREATININE SERUM 0.79 MG/DL (0.60-1.30)
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
--- NOTE | 2023-08-18 10:02 | Diagnostic Imaging Report ---
Clinical indication: Patient with shortness of breath for the last 5 days. EXAM: Portable chest x-ray upright view. COMPARISON: Chest x-ray dated 07/21/2023. FINDINGS: Lungs/pleura: Lungs are clear. There is no pneumothorax. There is no pleural effusion. Mediastinum: Unremarkable. Pulmonary vasculature: Unremarkable. Heart: Upper limits of normal heart size is seen for portable projection. Bones/extrathoracic soft tissue: There are degenerative spurs involving the thoracic spine. IMPRESSION: There is no radiographic evidence of acute cardiopulmonary process. Dictated by: Dictated on workstation # [id number]
[2023-08-18 10:38] VITALS: BP 183/89
== END 2023-08-18 10:41 | disposition home or self-care (01) ==
LOC: EDUNIT# 08:48 → ER 08:49
DX: R06.00 Dyspnea, unspecified (principal); Z20.822 Contact with and (suspected) exposure to COVID-19
CPT/HCPCS: 36415; 71045; 80053; 83690; 85025; 87636; 96360